=== PATIENT | male | born 1965 | race Caucasian/White ===

== ENCOUNTER 2016-11-24 08:02 | Outpatient (RCR) | payer MEDICARE ==
[~2016-11-24 08:02] MED LIST: AGM875T PO; ASP81TEC PO; ATOR80TA76 PO; BISTOLIC; CIPR500T78 PO; CIPR750T4 PO; CIPROFLOXACIN PO; DIAZ10TA PO; ESCT10T PO; EZET10TA5 PO; GABA-486 PO; GABA-488 PO; HYDR-3720 PO; HYDR-3820 PO; HYDR118S10 PO; IBP800T PO; IBUP-1773 PO; IBUP-30 PO; INSU100I14 SQ; INSU100V16 SQ; INSU100V3 SC; INSU100V6 SQ; INSULIN LANTUS; LANTUS SQ; LNZ600T PO; NAPR-243 PO; NCT21TD TD; NEBI20TA2 PO; PGLT30T PO; POTA20TA15 PO; SAXA1TBM2 PO; SSD50T TOP; SULF-109 PO; SULF-222 PO; TORS20TA2 PO; TRAM50TA2 PO; TRM50T PO; TRS20T PO
--- OUTSIDE RECORDS SUMMARY | 2016-11-24 08:05 | XMS REPORT ---
Author SYBIL Keller [facility] eClinicalWorks Address Unknown Phone Unavailable Care Team Providers Care Wheel Aligner Name Role Phone SYBIL NEW CP Unavailable Allergies, Adverse Reactions, Alerts Substance Reaction Event Type Lyrica Info Not Available Drug Allergy Problems Problem Type Condition Code Onset Dates Condition Status Assessment Neuropathy G62.9 Active Assessment HTN (hypertension) I10 Active Assessment GERD (gastroesophageal reflux disease) K21.9 Active Assessment Hypercholesterolemia E78.0 Active Assessment Emphysema lung J43.9 Active Problem HTN (hypertension) I10 Active Problem GERD (gastroesophageal reflux disease) K21.9 Active Problem 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 Problem 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 Active Assessment 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 Problem Neuropathy G62.9 Active Problem Emphysema lung J43.9 Active Medications Medication Code System Code Instructions Start Date End Date Status Dosage Protonix [facility] [address]-70 40 MG Orally Once a day February 21, 2016 1 tablet Humalog KwikPen [facility] [address]-01 100 UNIT/ML Subcutaneous 3 times a day February 17, 2016 30 units Advair Diskus [facility] [address]-24 250-50 MCG/DOSE Inhalation Twice a day February 17, 2016 1 puff Lantus SoloStar [facility] [address]-80 100 UNIT/ML Subcutaneous Once a day February 17, 2016 90 units Lipitor [facility] [address]-72 80 MG Orally Once a day 1 tablet Losartan Potassium [facility] [address]-81 50 mg Orally Once a day February 17, 2016 1 tablet Hydrocodone-Acetaminophen [facility] [address]-85 10-325 MG Orally 3 times a day 1 tablet as needed Kombiglyze XR [facility] [address]-40 2.5-1000 MG Orally Once a day 1 tablet with evening meal Crestor [facility] [address]-42 10 mg Orally Once a day February 18, 2016 1 tablet Proventil HFA [facility] [address]-38 108 (90 Base) MCG/ACT Inhalation every 4 hrs February 17, 2016 2 puffs as needed Ibuprofen [facility] [address]-55 600 MG Orally 2 times a day 1 tablet Advocate Insulin Pen [place] [facility] [address]243 31G X 8 MM 4 times a day February 17, 2016 as directed Gabapentin [facility] [address]-73 300 MG Orally Three times a day 1 capsule Procedures Procedure Coding System Code Date Office Visit, Est Pt., Level 4 CPT-4 19069 May 25, 2016 GLYCATED HEMOGLOBIN TEST CPT-4 11325 May 25, 2016 Vital Signs Date/Time: May 25, 2016 Cardiac Monitoring Heart Rate 72 bpm Weight 379.0 lbs Height 72.0 in Blood Pressure Diastolic 96 mmHg Blood Pressure Systolic 170 mmHg Results No Known Results Summary Purpose eClinicalWorks Submission
== END 2016-11-24 16:00 | disposition home or self-care (01) ==
LOC: WOUNDCARE 08:02
PROVIDERS: ATTEND Surgery
DX: E11.622 Type 2 diabetes mellitus with other skin ulcer (principal); E11.621 Type 2 diabetes mellitus with foot ulcer; L97.212 Non-pressure chronic ulcer of right calf with fat layer exposed; L97.522 Non-pressure chronic ulcer of other part of left foot with fat layer exposed; T87.89 Other complications of amputation stump; Z89.511 Acquired absence of right leg below knee; E66.01 Morbid (severe) obesity due to excess calories
CPT/HCPCS: 11042

== ENCOUNTER 2017-06-14 08:06 | Outpatient (RCR) | payer MEDICARE, OTHER | END 2017-06-18 16:00 | disposition home or self-care (01) | LOC: WOUNDCARE 08:06 | PROVIDERS: ATTEND Internal Medicine | DX: E11.622 Type 2 diabetes mellitus with other skin ulcer (principal); L97.112 Non-pressure chronic ulcer of right thigh with fat layer exposed; T87.89 Other complications of amputation stump; Z89.511 Acquired absence of right leg below knee; T65.222S Toxic effect of tobacco cigarettes, intentional self-harm, sequela; E66.01 Morbid (severe) obesity due to excess calories | CPT/HCPCS: 11042; 15271; 87070; 87075; 87077; 87101; 87186; 87205 ==

== ENCOUNTER → 2017-06-21 | Outpatient (CLI) | payer MEDICARE | LOC: WOUNDCARE 08:00 | PROVIDERS: ATTEND Internal Medicine | DX: E11.622 Type 2 diabetes mellitus with other skin ulcer (principal); L97.112 Non-pressure chronic ulcer of right thigh with fat layer exposed; T87.89 Other complications of amputation stump; T65.222S Toxic effect of tobacco cigarettes, intentional self-harm, sequela; E66.01 Morbid (severe) obesity due to excess calories; Z68.42 Body mass index [BMI] 45.0-49.9, adult; Z89.511 Acquired absence of right leg below knee | CPT/HCPCS: 11042; 87070; 87075; 87077; 87101; 87186; 87205 ==

== ENCOUNTER → 2017-06-28 | Outpatient (CLI) | payer MEDICARE, OTHER ==
[~2017-06-28] MED LIST changes: -NCT21TD TD; +NICO-588 TD
== END ==
LOC: WOUNDCARE 08:02
PROVIDERS: ATTEND Internal Medicine
DX: E11.621 Type 2 diabetes mellitus with foot ulcer (principal); L97.112 Non-pressure chronic ulcer of right thigh with fat layer exposed; T87.89 Other complications of amputation stump; Z89.511 Acquired absence of right leg below knee; T65.222S Toxic effect of tobacco cigarettes, intentional self-harm, sequela; E66.01 Morbid (severe) obesity due to excess calories
CPT/HCPCS: 11042

== ENCOUNTER → 2017-07-03 | Outpatient (CLI) | payer MEDICARE ==
[~2017-07-03] MED LIST changes: +NCT21TD TD; -NICO-588 TD
== END ==
LOC: WOUNDCARE 08:19
PROVIDERS: ATTEND Nurse Practitioner
DX: E11.622 Type 2 diabetes mellitus with other skin ulcer (principal); L97.112 Non-pressure chronic ulcer of right thigh with fat layer exposed; T87.89 Other complications of amputation stump; T65.222S Toxic effect of tobacco cigarettes, intentional self-harm, sequela; E66.01 Morbid (severe) obesity due to excess calories; Z68.42 Body mass index [BMI] 45.0-49.9, adult; Z89.511 Acquired absence of right leg below knee
CPT/HCPCS: 97597

== ENCOUNTER → 2017-07-12 | Outpatient (CLI) | payer MEDICARE | LOC: WOUNDCARE 08:15 | PROVIDERS: ATTEND Internal Medicine | DX: T87.89 Other complications of amputation stump (principal); Z89.511 Acquired absence of right leg below knee; T65.222S Toxic effect of tobacco cigarettes, intentional self-harm, sequela; E66.01 Morbid (severe) obesity due to excess calories | CPT/HCPCS: 99212 ==

== ENCOUNTER 2018-02-27 20:44 | Outpatient (CLI) | payer MEDICARE ==
[~2018-02-27 20:44] MED LIST changes: -NCT21TD TD; +NICO-588 TD
== END 2018-02-28 06:00 | disposition home or self-care (01) ==
LOC: SLEEP 20:44
PROVIDERS: ATTEND Nurse Practitioner Family
DX: G47.10 Hypersomnia, unspecified (principal); R06.83 Snoring; I10 Essential (primary) hypertension; I49.9 Cardiac arrhythmia, unspecified
CPT/HCPCS: 95810

== ENCOUNTER 2018-03-05 18:06 | Inpatient (IN) | payer MEDICARE ==
[~2018-03-05] VITALS: Ht 193 cm; Wt 165.1 kg
--- NOTE | 2018-03-05 18:56 | ED General ---
General Chief Complaint: General Problems/Pain Stated Complaint: POSS PNUEMONIA Nursing Triage Note: PT STATES HE JUST GENERALLY DOESN'T FEEL GOOD, SOB WITH LITTLE EFFORT. STATES HE THINKS HE MAY HAVE A BLADDER INFECTION. Nursing Sepsis Screen: Possible Sepsis Risk Source of Information: Patient History of Present Illness Date Seen by Provider: Mar 05, 2018 Time Seen by Provider: 18:40 Initial Comments PT ARRIVES VIA POV FROM HOME STATES HE "JUST HASN'T FELT GOOD" SINCE Sunday03/01/18 HAS HAD NO ENERGY, SUBJECTIVE FEVER, CHILLS AND SWEATS HAS HAD SLIGHT BURNING ON URINATION AND URINE HAS A BAD ODOR, AND URINE HAS BEEN DARK THE LAST FEW DAYS, HE HAS HAD URINARY INCONTINENCE, AND HAS TO PUSH TO FINISH VOIDING, AND THEN HE WILL HAVE "PENIS FARTS" WHEN HE IS FINISHING--AND FEELS LIKE NOTHING IS COMING OUT OF HIS PENIS EXCEPT AIR AND IT MAKES A VIBRATING NOISE LIKE HE IS PASSING GAS THROUGH HIS PENIS. HAS MILD BILATERAL FLANK PAIN AND NGOC-UMBILICAL AND LOWER ABDOMINAL PAIN NO NAUSEA/VOMITING SHORTNESS OF BREATH WITH MINIMAL EXERTION NO COUGH NO CHEST PAIN PT IS DIABETIC, WITH HISTORY OF PAD AND HAS HAD RIGHT BKA AND TOE AMPUTATIONS ON LEFT DUE TO OSTEOMYELITIS AND PAD. PT DENIES ANY PROBLEMS WITH HIS LEGS OR LEFT FOOT AT THIS TIME. PCP: CONI, CAROLEE LYNN Allergies and Home Medications Allergies Coded Allergies: pregabalin (Unverified Allergy, Severe, FEVER, 04/26/15) Home Medications Atorvastatin Calcium 80 Mg Tablet, 80 MG PO DAILY@0800 Prescribed by: RENÉ TAVAREZ on 11/25/15 1038 Gabapentin 300 Mg Capsule, 300 MG PO TID, (Reported) Ibuprofen 200 Mg Tablet, 600 MG PO BID PRN for PAIN, (Reported) TAKES 3 (200MG) OTC IBU NEEDED Insulin Aspart 300 Units/3 Ml Solution, 0 SQ AC SLIDING SCALE B Prescribed by: RENÉ TAVAREZ on 11/25/15 1049 Insulin Glargine,Hum.rec.anlog 100 Unit/1 Ml Vial, 75 UNIT SQ DAILY, (Reported) Nicotine 1 Each Patch.td24, 21 MG TD DAILY@0900 Prescribed by: RENÉ TAVAREZ on 11/25/15 1038 Saxagliptin HCl/Metformin HCl 1 Each Tbmp.24hr, 2 TAB PO DAILY, (Reported) Sulfamethoxazole/Trimethoprim 1 Each Tablet, 1 EACH PO BID Prescribed by: RENÉ TAVAREZ on 11/25/15 1038 Patient Home Medication List Home Medication List Reviewed: Yes Review of Systems Constitutional: see HPI, chills, malaise, weakness Respiratory: dyspnea on exertion Cardiovascular: no symptoms reported Gastrointestinal: abdominal pain Genitourinary: see HPI, dysuria Musculoskeletal: see HPI, back pain Skin: no symptoms reported Psychiatric/Neurological: Pre-Existing Deficit (PERIPHERAL NEUROPATHY, AND PHANTOM PAIN RIGHT LEG) Hematologic/Lymphatic: No Symptoms Reported Immunological/Allergic: no symptoms reported Past Vqtcosy-Jkyhsp-Xhiouc Hx Patient Social History Alcohol Use: Denies Use Recreational Drug Use: Yes (THC DAILY, HX OF METH, CRACK COCAINE, LSD, ECSTASY , MUSHROOMS) Drug of Choice: THC DAILY, HX OF METH, LSD, ECSTASY, CRACK COCAINE, MUSHROOMS- DENIES IV USE Smoking Status: Current Everyday Smoker (11/20 PPD) Type Used: Cigarettes Recent Foreign Travel: No Contact w/Someone Who Travel: No Recent Infectious Disease Expo: No Recent Hopitalizations: No Immunizations Up To Date Tetanus Booster (TDap): More than 5yrs PED Vaccines UTD: Yes Date of Pneumonia Vaccine: Sep 19, 2011 Date of Influenza Vaccine: Aug 28, 2015 Seasonal Allergies Seasonal Allergies: Yes Past Medical History Surgeries: Yes (LEFT BUTTOCK ABCESS, RT BKA, 2 TOES AMPUTATED ON LT FOOT) Amputation, Orthopedic Respiratory: Yes Sleep Apnea, COPD Currently Using CPAP: No Currently Using BIPAP: No Cardiac: Yes Chronic Edema/Swelling, Coronary Artery Disease, High Cholesterol, Hypertension , Peripheral Vascular Neurological: Yes (PHANTOM PAIN RIGHT LEG) Neuropathy Reproductive Disorders: No Genitourinary: No Gastrointestinal: Yes Gastroesophageal Reflux, Hiatal Hernia Musculoskeletal: Yes (OSTEOMYELITIS) Amputee, Arthritis, Chronic Back Pain Endocrine: Yes (MORBID OBESITY; DIABETES--INSULIN + ORAL MEDICATIONS) Diabetes, Insulin dep HEENT: Yes (EDENTULOUS) Loss of Vision: Denies Hearing Impairment: Denies Cancer: No Psychosocial: No Integumentary: Yes (MRSA, OSTEOMYELITIS, DIABETIC FOOT ULCERS) Blood Disorders: No Adverse Reaction/Blood Tranf: No Family Medical History Cardiovascular disease 19 FATHER ( heart attack) G8 BROTHER Diabetes mellitus 19 MOTHER ( complications diabetes) Psychosocial problem G8 BROTHER (in retirement) Heart Disease, Diabetes Physical Exam Vital Signs Vital Signs - First Documented 03/05/1818 18:30 20:37 Temp 97.9 Pulse 84 Resp 22 B/P (MAP) 151/85 (107) Pulse Ox 96 O2 Delivery Room Air O2 Flow Rate 2.00 Capillary Refill : Less Than 3 Seconds General Appearance: No Apparent Distress, Obese, Other (SMILING, TALKATIVE, DOES NOT APPEAR TO BE IN ANY DISCOMFORT OR DISTRESS; AMBULATES IN ON OWN-- WEARING PROSTHETIC RIGHT LOWER LEG. LAYING OUTSTRETCHED IN ER CART, DOES NOT APPEAR TO BE IN ANY DISCOMFORT. COVERED IN ANIMAL HAIR ) HEENT: PERRL/EOMI, Other (EDENTULOULS) Neck: Normal Inspection Respiratory: Normal Breath Sounds, No Accessory Muscle Use, No Respiratory Distress Cardiovascular: Regular Rate, Rhythm, No Murmur Gastrointestinal: Soft Extremity: Other (RIGHT AKA, WITH SCABBED WOUND TO LATERAL ASPECT OF STUMP, NO EVIDENCE OF INFECTION. 1+ EDEMA ON LEFT WITH MILD ERYTHEMA/CHRONIC VENOUS STASIS CHANGES TO LEFT LOWER LEG. 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 SCABBED WOUND (OLD) TO LEFT KNEE-NO SIGNS OF INFECTION. SEVERAL SCABBED LINEAR ABRASIONS TO LEFT LOWER LEG--PT STATES IS FROM HITTING IT ON HIS WHEELCHAIR ) Focused Exam Lactate Level 03/05/18 18:43: Lactic Acid Level 1.59 Lactic Acid Level Laboratory Tests Test 03/05/18 18:43 Lactic Acid Level 1.59 MMOL/L (0.50-2.00) Progress/Results/Core Measures Suspected Sepsis Recent Fever Within 48 Hours: Yes Infection Criteria Present: Suspected New Infection New/Unexplained Altered Menta: No Sepsis Screen: Possible Sepsis Risk SIRS Temperature:97.9 Pulse: 84 Respiratory Rate: 22 Laboratory Tests 03/05/18 18:43: White Blood Count 10.9 Blood Pressure 151 /85 Mean: 107 03/05/18 18:43: Lactic Acid Level 1.59 Laboratory Tests 03/05/18 18:43: Creatinine 0.84, INR Comment 1.0, Platelet Count 191, Total Bilirubin 0.4 Results/Orders Lab Results Laboratory Tests Test 03/05/18 18:43 03/05/18 19:25 Range/Units White Blood Count 10.9 4.3-11.0 10^3/uL Red Blood Count 5.56 4.35-5.85 10^6/uL Hemoglobin 16.0 13.3-17.7 G/DL Hematocrit 48 40-54 % Mean Corpuscular Volume 87 80-99 FL Mean Corpuscular Hemoglobin 29 25-34 PG Mean Corpuscular Hemoglobin Concent 33 32-36 G/DL Red Cell Distribution Width 13.4 10.0-14.5 % Platelet Count 191 130-400 10^3/uL Mean Platelet Volume 9.9 7.4-10.4 FL Neutrophils (%) (Auto) 61 42-75 % Lymphocytes (%) (Auto) 27 12-44 % Monocytes (%) (Auto) 9 0-12 % Eosinophils (%) (Auto) 2 0-10 % Basophils (%) (Auto) 1 0-10 % Neutrophils # (Auto) 6.7 1.8-7.8 X 10^3 Lymphocytes # (Auto) 2.9 1.0-4.0 X 10^3 Monocytes # (Auto) 1.0 0.0-1.0 X 10^3 Eosinophils # (Auto) 0.3 0.0-0.3 10^3/uL Basophils # (Auto) 0.1 0.0-0.1 10^3/uL Prothrombin Time 13.6 12.2-14.7 SEC INR Comment 1.0 0.8-1.4 Activated Partial Thromboplast Time 35 24-35 SEC Sodium Level 137 135-145 MMOL/L Potassium Level 3.6 3.6-5.0 MMOL/L Chloride Level 102 98-107 MMOL/L Carbon Dioxide Level 27 21-32 MMOL/L Anion Gap 8 5-14 MMOL/L Blood Urea Nitrogen 16 7-18 MG/DL Creatinine 0.84 0.60-1.30 MG/DL Estimat Glomerular Filtration Rate > 60 BUN/Creatinine Ratio 19 Glucose Level 115 H 70-105 MG/DL Lactic Acid Level 1.59 0.50-2.00 MMOL/L Calcium Level 9.5 8.5-10.1 MG/DL Total Bilirubin 0.4 0.1-1.0 MG/DL Aspartate Amino Transf (AST/SGOT) 16 5-34 U/L Alanine Aminotransferase (ALT/SGPT) 17 0-55 U/L Alkaline Phosphatase 113 40-136 U/L Troponin I < 0.30 <0.30 NG/ML B-Type Natriuretic Peptide 19.4 <100.0 PG/ML Total Protein 7.8 6.4-8.2 GM/DL Albumin 3.8 3.2-4.5 GM/DL Amylase Level 29 25-125 U/L Lipase < 4 L 8-78 U/L Serum Alcohol < 10 <10 MG/DL Urine Color KARLEY H Urine Clarity VERY CLOUDY H Urine pH 6 5-9 Urine Specific [place] 1.025 H 1.016-1.022 Urine Protein 3+ H NEGATIVE Urine Glucose (UA) NEGATIVE NEGATIVE Urine Ketones 1+ H NEGATIVE Urine Nitrite POSITIVE H NEGATIVE Urine Bilirubin NEGATIVE NEGATIVE Urine Urobilinogen 1 NORMAL MG/DL Urine Leukocyte Esterase 1+ H NEGATIVE Urine RBC (Auto) 1+ H NEGATIVE Urine RBC 0-2 /HPF Urine WBC 10-25 H /HPF Urine Crystals NONE /LPF Urine Bacteria LARGE H /HPF Urine Casts NONE /LPF Urine Mucus NEGATIVE /LPF Urine Culture Indicated YES Urine Opiates Screen POSITIVE H NEGATIVE Urine Oxycodone Screen POSITIVE H NEGATIVE Urine Methadone Screen NEGATIVE NEGATIVE Urine Propoxyphene Screen NEGATIVE NEGATIVE Urine Barbiturates Screen NEGATIVE NEGATIVE Ur Tricyclic Antidepressants Screen NEGATIVE NEGATIVE Urine Phencyclidine Screen NEGATIVE NEGATIVE Urine Amphetamines Screen NEGATIVE NEGATIVE Urine Methamphetamines Screen NEGATIVE NEGATIVE Urine Benzodiazepines Screen NEGATIVE NEGATIVE Urine Cocaine Screen NEGATIVE NEGATIVE Urine Cannabinoids Screen POSITIVE H NEGATIVE My Orders Orders - DAYO AGUIRRE DO Saline Lock/Iv-Start (03/05/18 18:32) Ekg Tracing (03/05/18 18:32) Monitor-Rhythm Ecg Trace Only (03/05/18 18:32) Alcohol (03/05/18 18:32) Amylase (03/05/18 18:32) BNP (03/05/18 18:32) Cbc With Automated Diff (03/05/18 18:32) Comprehensive Metabolic Panel (03/05/18 18:32) Drug Screen Stat (Urine) (03/05/18 18:32) Lactic Acid Analyzer (03/05/18 18:32) Lipase (03/05/18 18:32) Protime With Inr (03/05/18 18:32) Partial Thromboplastin Time (03/05/18 18:32) Troponin I (03/05/18 18:32) Ua Culture If Indicated (03/05/18 18:32) Blood Culture (03/05/18 18:32) Chest Pa/Lat (2 View) (03/05/18 18:32) Urine Culture (03/05/18 19:25) Ct Abdomen/Pelvis W (03/05/18 19:56) Iohexol Injection (Omnipaque 350 Mg/Ml 1 (03/05/18 20:15) Ns (Ivpb) (Sodium Chloride 0.9% Ivpb Bag (03/05/18 20:15) Ekg Tracing (03/05/18 20:38) O2 (03/05/18 20:38) Ekg Tracing (03/05/18 20:43) Ceftriaxone Injection (Rocephin Injectio (03/05/18 21:00) Medications Given in ED Current Medications Medications Dose Ordered Sig/Abigail Route Start Time Stop Time Status Last Admin Dose Admin Ceftriaxone Sodium 1000 mg/ Sodium Chloride 100 ml @ 200 mls/hr ONCE ONCE IV 03/05/18 21:00 03/05/18 21:29 DC 03/05/18 21:06 200 MLS/HR Iohexol 150 ml ONCE ONCE IV 03/05/18 20:15 03/05/18 20:19 DC 03/05/18 20:07 125 ML Sodium Chloride 100 ml ONCE ONCE IV 03/05/18 20:15 03/05/18 20:19 DC 03/05/18 20:07 100 ML Vital Signs/I&O 03/05/18 03/05/18 03/05/18 18:30 20:37 21:19 Temp 97.9 98.1 98.1 Pulse 84 67 75 Resp 22 13 15 B/P (MAP) 151/85 (107) 119/81 (94) 141/81 (94) Pulse Ox 96 96 96 O2 Delivery Room Air Nasal Cannula Nasal Cannula O2 Flow Rate 2.00 2.00 Capillary Refill : Less Than 3 Seconds Blood Pressure Mean: 107 Progress Note : Progress Note ON REVIEW OF CT RESULTS WITH PT, HE DENIES ANY INSTRUMENTATION INTO PENIS OR BLADDER 2034--PT PROFUSELY DIAPHORETIC, AND C/O SHORTNESS OF BREATH,BUT DOES NOT APPEAR DYSPNEIC. --REPEAT EKG DONE, REPEAT VITALS TAKEN 02 SAT 91-93% ON ROOM AIR--PLACED ON O2 AT 4LNC AND O2 SATS UP TO 96% HEART RATE IN 70'S TEMP 98.1 EKG SHOWS NSR WITH PAC'S ECG Initial ECG Impression Date: Mar 05, 2018 Initial ECG Impression Time: 18:39 Initial ECG Rate: 82 Initial ECG Rhythm: Normal Sinus (PAC) EKG : EKG Time: 20:33 Rate: 64 Rhythm: Normal Sinus (WITH MULTIPLE PAC'S) Comment EGK#3 AT 2034--RATE 66, NSR WITH MULTIPLE PAC'S Diagnostic Imaging Comments CXR--NO ACUTE PROCESS, PER RADIOLOGIST REPORT CT ABDOMEN/PELVIS--AIR IN URINARY BLADDER. INSTRUMENTATION VS GAS-PRODUCING CYSTITIS, OTHER CHRONIC FINDINGS--PER RADIOLOGIST REPORT @ 2038 Reviewed: Reviewed by Tn Departure Communication (Admissions) 2045--ATTEMPTING TO CONTACT DR. SIEGEL, SHIPPING CLERK FOR [facility], MESSAGE LEFT ON CELL PHONE [phone]--SPOKE WITH DR. SIEGEL, ACCEPTS PT FOR ADMIT. Impression Primary Impression: UTI (urinary tract infection) Additional Impressions: IDDM (insulin dependent diabetes mellitus) Illicit drug use AIR IN BLADDER Disposition: ADMITTED INPATIENT Condition: Stable Admissions Decision to Admit Reason: Admit from ER (General) Decision to Admit/Date: Mar 05, 2018 Time/Decision to Admit Time: 21:05 Departure-Patient Inst. Referrals: KAREN LYNN APRN (PCP/Family) Primary Care Physician DAYO AGUIRRE DO Mar 05, 2018 18:56
[2018-03-05 19:04] LABS: BASOPHILS # (AUTO) 0.1 10^3/uL (0.0-0.1); BASOPHILS % (AUTO) 1 % (0-10); EOSINOPHILS # (AUTO) 0.3 10^3/uL (0.0-0.3); EOSINOPHILS % (AUTO) 2 % (0-10); HEMATOCRIT 48 % (40-54); LYMPHOCYTES # (AUTO) 2.9 X 10^3 (1.0-4.0); LYMPHOCYTES % (AUTO) 27 % (12-44); MEAN CORPUSCULAR HEMOGLOBIN 29 PG (25-34); MEAN CORPUSCULAR HGB CONC 33 G/DL (32-36); MEAN CORPUSCULAR VOLUME 87 FL (80-99); MEAN PLATELET VOLUME 9.9 FL (7.4-10.4); MONOCYTES % (AUTO) 9 % (0-12); NEUTROPHILS # (AUTO) 6.7 X 10^3 (1.8-7.8); NEUTROPHILS % (AUTO) 61 % (42-75); PLATELET COUNT 191 10^3/uL (130-400); RED BLOOD COUNT 5.56 10^6/uL (4.35-5.85); RED CELL DISTRIBUTION WIDTH 13.4 % (10.0-14.5); WHITE BLOOD COUNT 10.9 10^3/uL (4.3-11.0)
[2018-03-05 19:17] LABS: PROTHROMBIN TIME PATIENT 13.6 SEC (12.2-14.7)
[2018-03-05 19:30] LABS: ALANINE AMINOTRANSFERASE 17 U/L (0-55); ALBUMIN 3.8 GM/DL (3.2-4.5); ALKALINE PHOSPHATASE 113 U/L (40-136); AMYLASE 29 U/L (25-125); BILIRUBIN,TOTAL 0.4 MG/DL (0.1-1.0); BUN/CREATININE RATIO 19; CALCIUM 9.5 MG/DL (8.5-10.1); CARBON DIOXIDE 27 MMOL/L (21-32); CHLORIDE 102 MMOL/L (98-107); CREATININE SERUM 0.84 MG/DL (0.60-1.30); GFR ESTIMATED > 60; GLUCOSE 115 MG/DL (70-105); LIPASE < 4 U/L (8-78); POTASSIUM 3.6 MMOL/L (3.6-5.0); SODIUM 137 MMOL/L (135-145); TOTAL PROTEIN 7.8 GM/DL (6.4-8.2)
--- NOTE | 2018-03-05 19:31 | Diagnostic Imaging Report ---
INDICATION: Cough and congestion. Time of exam: 7:42 PM Correlation is made with prior study from 11/17/2015. The heart size is normal. The pulmonary vascularity is unremarkable. The lungs are clear. No infiltrate, effusion or pneumothorax is detected. Impression: No acute cardiopulmonary process is detected. Dictated by: Dictated on workstation # [id number]
[2018-03-05 19:35] LABS: BILIRUBIN,URINE NEGATIVE (NEGATIVE); CLARITY,URINE VERY CLOUDY; COLOR,URINE AMBER; GLUCOSE, URINE (UA) NEGATIVE (NEGATIVE); KETONES,URINE 1+ (NEGATIVE); LEUKOCYTE ESTERASE ,URINE 1+ (NEGATIVE); NITRITE,URINE POSITIVE (NEGATIVE); PH,URINE 6 (5-9); PROTEIN,URINE 3+ (NEGATIVE); UROBILINOGEN,URINE 1 MG/DL (NORMAL)
[2018-03-05 19:45] LABS: BACTERIA,URINE LARGE /HPF; RBC,URINE 0-2 /HPF
[2018-03-05 19:58] LABS: AMPHETAMINE SCREEN, URINE NEGATIVE (NEGATIVE); BARBITURATE SCREEN URINE NEGATIVE (NEGATIVE); BENZODIAZEPINES SCREEN URINE NEGATIVE (NEGATIVE); CANNABINOID SCREEN, URINE POSITIVE (NEGATIVE); COCAINE SCREEN URINE NEGATIVE (NEGATIVE); METHADONE STAT NEGATIVE (NEGATIVE); METHAMPHETAMINE SCREEN URINE S NEGATIVE (NEGATIVE); OPIATE SCREEN URINE POSITIVE (NEGATIVE); OXYCODONE STAT POSITIVE (NEGATIVE); TRICYCLIC ANTIDEPRESSANTS SCRE NEGATIVE (NEGATIVE)
[2018-03-05 19:59] LABS: PROPOXYPHENE STAT NEGATIVE (NEGATIVE)
[2018-03-05] MEDS ORDERED: NS 100 ML (IVPB) BAG IV ONE (20:15)
[2018-03-05] MEDS ORDERED: IOHEXOL 350 MG/ML 150 ML (OMNIPAQUE 350) VIAL IV ONE (20:15)
--- NOTE | 2018-03-05 20:31 | Diagnostic Imaging Report ---
PROCEDURE: CT abdomen and pelvis with contrast. TECHNIQUE: Multiple contiguous axial images were obtained through the abdomen and pelvis after administration of intravenous contrast. INDICATION: Left lower quadrant pain There are numerous calcified granuloma scattered throughout the liver and spleen. There is some calcified hilar lymph nodes present bilaterally. The lung bases are clear. There are no masses in the liver. The gallbladder is present. Pancreas is unremarkable. Spleen is not enlarged. Adrenals are normal. Kidneys appear normal. Small bowel is not dilated. The appendix is normal. Colon appears normal. There is no evidence of diverticulosis or diverticulitis. There is air in the urinary bladder which could be due to instrumentation but clinical correlation required. IMPRESSION: There is air present within the urinary bladder that could be from instrumentation versus gas producing cystitis. Dictated by: Dictated on workstation # [id number]
[2018-03-05 20:37] VITALS: BP 119/81
[2018-03-05] MEDS ORDERED: cefTRIAXone INJECTION 1,000 MG in NS (IVPB) 100 ML IV ONE (21:00)
--- OUTSIDE RECORDS SUMMARY | 2018-03-05 21:20 | XMS REPORT ---
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
--- OUTSIDE RECORDS SUMMARY | 2018-03-05 21:21 | XMS REPORT ---
Author SYBIL Keller [facility] eClinicalWorks Address Unknown Phone Unavailable Care Team Providers Care Oil Heater Installer Name Role Phone SYBIL NEW CP Unavailable [...] Start Date End Date Status Dosage Protonix [facility] [address]-63 40 MG Orally Once a day February 21, 2016 1 tablet Humalog KwikPen [facility] [address]-12 100 UNIT/ML Subcutaneous 3 times a day February 17, 2016 30 units Advair Diskus [facility] [address]-11 250-50 MCG/DOSE Inhalation Twice a day February 17, 2016 1 puff Lantus SoloStar [facility] [address]-28 100 UNIT/ML Subcutaneous Once a day February 17, 2016 90 units Lipitor [facility] [address]-43 80 MG Orally Once a day 1 tablet Losartan Potassium [facility] [address]-53 50 mg Orally Once a day February 17, 2016 1 tablet Hydrocodone-Acetaminophen [facility] [address]-86 10-325 MG Orally 3 times a day 1 tablet as needed Kombiglyze XR [facility] [address]-90 2.5-1000 MG Orally Once a day 1 tablet with evening meal Crestor [facility] [address]-27 10 mg Orally Once a day February 18, 2016 1 tablet Proventil HFA [facility] [address]-15 108 (90 Base) MCG/ACT Inhalation every 4 hrs February 17, 2016 2 puffs as needed Ibuprofen [facility] [address]-86 600 MG Orally 2 times a day 1 tablet Advocate Insulin Pen [place] [facility] [address] 31G X 8 MM 4 times a day February 17, 2016 as directed Gabapentin [facility] [address]-89 300 MG Orally Three times a day 1 capsule Procedures Procedure Coding System Code Date Office Visit, Est Pt., Level 4 CPT-4 68639 May 25, 2016 GLYCATED HEMOGLOBIN TEST CPT-4 73648 May 25, 2016 Vital Signs Date/Time: May 25, 2016 Cardiac Monitoring Heart Rate 72 bpm Weight 379.0 lbs Height 72.0 in Blood Pressure Diastolic 96 mmHg Blood Pressure Systolic 170 mmHg Results No Known Results Summary Purpose eClinicalWorks Submission
--- OUTSIDE RECORDS SUMMARY | 2018-03-05 21:21 | XMS REPORT ---
Author Author SYBIL Rubi Organization [facility] Address [address] [place] [address] Care Team Providers Care Acoustical Engineer Name Role Phone [email or web address] SYBIL Unavailable PROBLEMS Type Condition ICD9-CM Code [id number] Code Onset Dates Condition Status SNOMED Code Problem 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 605605906 Problem Primary insomnia F51.01 Active 0839913 Problem GERD (gastroesophageal reflux disease) K21.9 Active 936811609 Problem High risk medication use Z79.899 Active [id number] Problem Long-term insulin use Z79.4 Active 021318573 Problem Morbid (severe) obesity due to excess calories E66.01 Active 745039611 Problem Body mass index (BMI) of 50-59.9 in adult Z68.43 Active 380935049 Problem Controlled substance agreement signed Z79.899 Active 645859041 Problem Irregular heart rhythm I49.9 Active 969446596 Problem Emphysema lung J43.9 Active 66209930 Problem Neuropathy G62.9 Active 007802984 Problem HTN (hypertension) I10 Active 98292277 Problem Pure hypercholesterolemia, unspecified E78.00 Active 627799963 Problem 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 Active 518847133 ALLERGIES No Information ENCOUNTERS Encounter Location Date Diagnosis [facility] [id number] [address] Jan, [facility] [id number] [place] [address] Jan, 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 [facility] [id number] [address] Dec, Type 2 diabetes mellitus with other circulatory complications E11.59 ; HTN (hypertension) I10 and Pure hypercholesterolemia, unspecified E78.00 [address] [id number] [place] [address]7582- [address] 27 Dec, 2017 Type 2 diabetes mellitus with other circulatory complications E11.59 ; Long-term insulin use Z79.4 ; HTN (hypertension) I10 ; Pure hypercholesterolemia, unspecified E78.00 ; 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 ; Controlled substance agreement signed Z79.899 ; High risk medication use Z79.899 ; Irregular heart rhythm I49.9 ; Body mass index ( BMI) of 50-59.9 in adult Z68.43 ; Morbid (severe) obesity due to excess calories E66.01 ; Neuropathy G62.9 and GERD (gastroesophageal reflux disease) K21.9 [place] [id number] [place] [address] 81326- 8789 13 Dec, 2017 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 [place] [id number] [place] [address] 40158- 2983 Dec, [place] [id number] [place] [address] 78199- 0487 Nov, 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 [facility] [id number] [place] [id number] Oct, GERD (gastroesophageal reflux disease) K21.9 [place] [address] [place] [address] 66171- 0533 Oct, HTN (hypertension) I10 ; GERD (gastroesophageal reflux disease) K21.9 and 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 [place] [id number] [place] [address] 77188- 5386 Oct, [place] [address] [address]- 7487 Oct, [place] [id number] [place] [address] 61764- 4676 Sep, Type 2 diabetes mellitus with other circulatory complications E11.59 and 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 [facility] [address] [address] Sep, Type 2 diabetes mellitus with other circulatory complications E11.59 [place] [id number] [place] [address] 11846- 0910 Aug, [facility] [id number] [place] [address] 25879- 5050 Aug, Type 2 diabetes mellitus with other circulatory complications E11.59 ; HTN (hypertension) I10 ; GERD (gastroesophageal reflux disease) K21.9 ; Neuropathy G62.9 ; 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 ; Encounter for tobacco use cessation counseling Z71.6 and BMI 40.0-44.9, adult Z68.41 [place] [id number] [place] [address] 62818- 5519 Aug, [place] [id number] [place] [address] 69440- 3274 Aug, 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 [place] [id number] [place] [address] 01652- 2159 Aug, Type 2 diabetes mellitus with other circulatory complications E11.59 [place] [id number] [place] [address] 64894- 3878 Aug, [place] [id number] [place] [address] 83146- 3455 Aug, [place] [id number] [place] [address] 17459- 2177 Jul, Encounter for immunization Z23 ; Type 2 diabetes mellitus with other circulatory complications E11.59 ; GERD (gastroesophageal reflux disease) K21.9 and Neuropathy G62.9 [facility] [address] [place] [address] 67081- 1737 Jul, 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 [place] [id number] [place] [address] 46966- 8636 Jul, [facility] [address] [address] Jun, 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 [facility] [id number] [place] [address] 660666- 2853 Jun, 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 [facility] [id number] [place] [address] 78913- 0851 May, 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 [facility] [id number] [place] [address] 07027- 0461 Apr, [place] [id number] [place] [address] 03027- 6727 Apr, Unspecified open wound, right knee, initial encounter S81.001A [facility] [id number] [place] [address] 74109- 5386 Apr, Unspecified open wound, right knee, initial encounter S81.001A [facility] [id number] [place] [address] 90076- 6741 Apr, Type 2 diabetes mellitus with other circulatory complications E11.59 ; HTN (hypertension) I10 ; GERD (gastroesophageal reflux disease) K21.9 ; Emphysema lung J43.9 ; Primary insomnia F51.01 ; Unspecified open wound, right knee, initial encounter S81.001A ; Pure hypercholesterolemia, unspecified E78.00 ; Neuropathy G62.9 and 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 [facility] [id number] [place] [address] 38222- 0245 Apr, Neuropathy G62.9 [facility] [id number] [place] [address] 92419- 7650 March, Neuropathy G62.9 [facility] [id number] [place] [address] 64775- 4635 March, [facility] [id number] [place] [address] 69056- 3295 Feb, Neuropathy G62.9 [place] [address] 58061- 8109 14 Jan, 2017 Type 2 diabetes mellitus with other circulatory complications E11.59 ; HTN (hypertension) I10 ; GERD (gastroesophageal reflux disease) K21.9 ; Neuropathy G62.9 ; Emphysema lung J43.9 ; Hypercholesterolemia E78.0 ; Primary insomnia F51.01 and Unspecified open wound, right knee, initial encounter S81.001A [place] [address] 7[address]- 1512 14 Dec, 2016 Type 2 diabetes mellitus with other circulatory complications E11.59 ; Neuropathy G62.9 ; 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 ; HTN (hypertension) I10 ; GERD (gastroesophageal reflux disease) K21.9 ; Hypercholesterolemia E78.0 ; Emphysema lung J43.9 and Dysuria R30.0 [place] [id number] [place] [address] 05576- 6989 Nov, [place] [id number] [place] [address] 52295- 9160 Nov, 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 [place] [id number] [place] [address] 31036- 6182 Nov, [place] [id number] [place] [address] 50527- 4984 Nov, [place] [id number] [place] [address] 47673- 9884 Nov, Type 2 diabetes mellitus with other circulatory complications E11.59 ; HTN (hypertension) I10 ; Neuropathy G62.9 ; Emphysema lung J43.9 ; 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 ; Hypercholesterolemia E78.0 ; GERD (gastroesophageal reflux disease) K21.9 ; Unspecified open wound, right knee, initial encounter S81.001A and Primary insomnia F51.01 [place] [address] 90502- 8215 Oct, [facility] [address] [address]- 6157 Oct, [facility] [id number] [place] [address] 466701- 1211 Oct, [facility] [id number] [place] [address] 07560- 8536 Sep, [place] [id number] [place] [address] 49773- 9485 Aug, [facility] [id number] [place] [address] 86231- 3901 Jul, Type 2 diabetes mellitus with other circulatory complications E11.59 ; HTN (hypertension) I10 ; Neuropathy G62.9 ; Emphysema lung J43.9 ; 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 ; Hypercholesterolemia E78.0 and Gastroesophageal reflux disease without esophagitis K21.9 [place] [address] [place] [address] 69956- 6603 Jun, [place] [id number] [place] [address] 98029- 0806 Jun, [place] [id number] [place] [address] 15616- 1896 May, [place] [id number] [place] [address] 47405- 0996 May, Type 2 diabetes mellitus with other circulatory complications E11.59 ; HTN (hypertension) I10 ; GERD (gastroesophageal reflux disease) K21.9 ; Neuropathy G62.9 ; Emphysema lung J43.9 and Hypercholesterolemia E78.0 [place] [id number] [place] [address] 99203- 1204 Apr, Neuropathy G62.9 and Type 2 diabetes mellitus with other circulatory complications E11.59 [place] [id number] [place] [address] 98632- 6989 Apr, Neuropathy G62.9 [place] [id number] [place] [address] 38119- 1793 March, Type 2 diabetes mellitus with other circulatory complications E11.59 ; HTN (hypertension) I10 ; Neuropathy G62.9 ; Emphysema lung J43.9 ; 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 ; Hypercholesterolemia E78.0 and Gastroesophageal reflux disease with esophagitis K21.0 [facility] [address] 9[address]05- 3239 Feb, [facility] [address] 81282- 1223 Feb, [facility] [address] 05518- 6681 Jan, [place] [address] 72080- 7099 Jan, Type 2 diabetes mellitus with other circulatory complications E11.59 ; HTN (hypertension) I10 ; GERD (gastroesophageal reflux disease) K21.9 ; Neuropathy G62.9 ; Emphysema lung J43.9 ; 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 and Hypercholesterolemia E78.0 [facility] [address] 60049- 7544 Jan, [facility] [id number] [place] [address] [id number] Dec, Dental examination Z01.20 and Dental caries K02.9 IMMUNIZATIONS No Known Immunizations SOCIAL HISTORY Never Assessed REASON FOR VISIT Lab (walk-in) PLAN OF CARE VITAL SIGNS MEDICATIONS Unknown Medications RESULTS Name Result Date Reference Range CBC 2017-04-27 WBC 9.5 3.4-10.8 RBC 5.73 4.14-5.80 Hemoglobin 16.1 12.6-17.7 Hematocrit 49.3 37.5-51.0 MCV 86 79-97 MCH 28.1 26.6-33.0 MCHC 32.7 31.5-35.7 RDW 13.6 12.3-15.4 Platelets 183 150-379 Neutrophils 69 Lymphs 19 Monocytes 10 Eos 2 Basos 0 Neutrophils (Absolute) 6.6 1.4-7.0 Lymphs (Absolute) 1.8 0.7-3.1 Monocytes(Absolute) 0.9 0.1-0.9 Eos (Absolute) 0.1 0.0-0.4 Baso (Absolute) 0.0 0.0-0.2 Immature Granulocytes 0 Immature Grans (Abs) 0.0 0.0-0.1 ESR/SED RATE 2017-04-27 Sedimentation Rate-Westergren 44 0-30 BMP 2017-04-27 Glucose, Serum 294 65-99 BUN 14 6-24 Creatinine, Serum 0.93 0.76-1.27 eGFR If NonAfricn Am 94 >59 eGFR If Africn Am 109 >59 BUN/Creatinine Ratio 15 9-20 Sodium, Serum 135 134-144 Potassium, Serum 4.7 3.5-5.2 Chloride, Serum 91 96-106 Carbon Dioxide, Total 27 18-29 Calcium, Serum 9.3 8.7-10.2 PROCEDURES Procedure Date Ordered Result Body Site LAB NOT BILLED BY [facility] April 27, 2017 VENIPUNCT, ROUTINE* April 27, 2017 INSTRUCTIONS MEDICATIONS ADMINISTERED No Known Medications MEDICAL (GENERAL) HISTORY Type Description Date Medical History High Blood pressure Medical History COPD Medical History Bronchitis Medical History Emphysema Medical History Diabetes Type 2 Medical History Arthritis Medical History Back Trouble Medical History Bone spurs in muscles in arms Medical History Neuropathy Surgical History osteomyelitis in left foot and right foot 2015 Surgical History 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 Thomas Surgical History Left leg massive hematoma when 11 years old Surgical History Great toe and 2nd toe amputated on left foot due to gangrene Hospitalization History Due to surgery 2015
--- OUTSIDE RECORDS SUMMARY | 2018-03-05 21:21 | XMS REPORT ---
Author Author SYBIL NEW Organization [facility] Address [address] [place] [address] Care Team Providers Care Lens Blank Gauger Name Role Phone SYBIL NEW Unavailable PROBLEMS Type Condition ICD9-CM Code [id number] Code Onset Dates Condition Status SNOMED Code Problem Pure hypercholesterolemia, unspecified E78.00 Active 875496485 Problem Emphysema lung J43.9 Active 61849191 Problem 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 Active 170273993 Problem Primary insomnia F51.01 Active 7032692 Problem Unspecified open wound, right knee, initial encounter S81.001A Active 194730727 Problem GERD (gastroesophageal reflux disease) K21.9 Active 491237220 Problem Neuropathy G62.9 Active 406213032 Problem 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 869291768 Problem HTN (hypertension) I10 Active 46451278 ALLERGIES Unknown Allergies SOCIAL HISTORY No smoking Hx information available PLAN OF CARE VITAL SIGNS MEDICATIONS Unknown Medications RESULTS No Results PROCEDURES No Known procedures IMMUNIZATIONS No Known Immunizations
--- OUTSIDE RECORDS SUMMARY | 2018-03-05 21:21 | XMS REPORT ---
Author Author SYBIL NEW Organization [facility] Address [address] [place] [address] Care Team Providers Care Chiller Hand Name Role Phone NEW, SYBIL Unavailable PROBLEMS Type Condition ICD9-CM Code [id number] Code Onset Dates Condition Status SNOMED Code Problem Pure hypercholesterolemia, unspecified E78.00 Active 319327645 Problem 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 Active 987420702 Problem 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 037145790 Problem Primary insomnia F51.01 Active 1990654 Problem Unspecified open wound, right knee, initial encounter S81.001A Active 175623517 Problem Neuropathy G62.9 Active 385542837 Problem Emphysema lung J43.9 Active 09367894 Problem GERD (gastroesophageal reflux disease) K21.9 Active 296820769 Problem HTN (hypertension) I10 Active 15967497 ALLERGIES Substance Reaction Event Type Date Status Lyrica Unknown Drug Allergy Dec, Active SOCIAL HISTORY Never Assessed PLAN OF CARE Activity Details Follow Up 3 Months Reason:adhd VITAL SIGNS Height 72.0 in 2017-01-02 Weight 372 lbs 2017-01-02 Temperature 98.1 degrees Fahrenheit 2017-01-02 Heart Rate 80 bpm 2017-01-02 Respiratory Rate 22 2017-01-02 Oximetry on room air:92 % 2017-01-02 BMI 50.45 kg/m2 2017-01-02 Blood pressure systolic 160 mmHg 2017-01-02 Blood pressure diastolic 100 mmHg 2017-01-02 MEDICATIONS Medication Instructions Dosage Frequency Start Date End Date Duration Status ProAir HFA 108 (90 Base) MCG/ACT Inhalation every 4 hrs 2 puffs as needed 4h Jun, Active Ibuprofen 600 MG Orally 2 times a day 1 tablet 12h Active Proventil HFA 108 (90 Base) MCG/ACT Inhalation every 4 hrs 2 puffs as needed 4h Active Advair Diskus 250-50 MCG/DOSE Inhalation Twice a day 1 puff 12h Jan, Active Advocate Insulin Pen [place] 31G X 8 MM as directed 6h Jan, Active OxyContin 15 MG Orally every 12 hrs 1 tablet 12h 15 Dec, 2016 Active Lipitor 80 MG Orally Once a day 1 tablet 24h Active Lantus SoloStar 100 UNIT/ML Subcutaneous Once a day 110 units 24h Jan, Active Remeron 30 Orally Once a day 1 tablet at bedtime 24h 30 Active Gabapentin 300 MG Orally Three times a day 1 capsule 8h Active Protonix 40 MG Orally Once a day 1 tablet 24h Feb, Active Humalog KwikPen 100 UNIT/ML Subcutaneous 3 times a day 50 units 8h Jan, Active Hydrocodone-Acetaminophen 10-325 MG Orally 3 times a day 1 tablet as needed 8h 15 Dec, 2016 28 days Active Losartan Potassium 50 mg Orally Once a day 1 tablet 24h Jan, Active RESULTS Name Result Date Reference Range UA LONG DIP (IN HOUSE) 2017-01-02 Lot # [id number] Exp date 11/2017 Clarity clear Color orange Odor no GLU 3+ RILEY Neg KET Neg SG >1.030 BLO Neg pH 7.0 Protein 2+ URO 0.2 NIT Neg MICHAELA Neg Lot # Exp date PROCEDURES Procedure Date Ordered Result Body Site MEASURE BLOOD OXYGEN LEVEL Jan 02, 2017 URINALYSIS, AUTO, W/O SCOPE Jan 02, 2017 [facility] VISIT ESTABLISHED PATIENT Jan 02, 2017 IMMUNIZATIONS No Known Immunizations MEDICAL (GENERAL) HISTORY Type Description Date Medical [...]
--- OUTSIDE RECORDS SUMMARY | 2018-03-05 21:22 | XMS REPORT ---
Author Author SYBIL NEW Organization [facility] Address [address] [place] [address] Care Team Providers Care Machine Bender Name Role Phone SHAQ SYBIL Unavailable PROBLEMS Type Condition ICD9-CM Code UEU31-YD Code Onset Dates Condition Status SNOMED Code Problem Pure hypercholesterolemia, unspecified E78.00 Active 707568876 Problem 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 Active 854479395 Problem 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 638025374 Problem Primary insomnia F51.01 Active 9253267 Problem Unspecified open wound, right knee, initial encounter S81.001A Active 102107954 Problem Neuropathy G62.9 Active 670293346 Problem Emphysema lung J43.9 Active 38028651 Problem GERD (gastroesophageal reflux disease) K21.9 Active 654926944 Problem HTN (hypertension) I10 Active 62140394 ALLERGIES Substance Reaction Event Type Date Status Lyrica Unknown Drug Allergy Jan, Active SOCIAL HISTORY Never Assessed PLAN OF CARE Activity Details Follow Up 2 Months Reason:DM VITAL SIGNS Height 72.0 in 2017-01-30 Weight 377 lbs 2017-01-30 Temperature 98.0 degrees Fahrenheit 2017-01-30 Heart Rate 78 bpm 2017-01-30 Respiratory Rate 24 2017-01-30 BMI 51.12 kg/m2 2017-01-30 Blood pressure systolic 148 mmHg 2017-01-30 Blood pressure diastolic 88 mmHg 2017-01-30 MEDICATIONS Medication Instructions Dosage Frequency Start Date End Date Duration Status Protonix 40 MG Orally Once a day 1 tablet 24h Feb, Active Lipitor 80 MG Orally Once a day 1 tablet 24h Active Gabapentin 300 MG Orally Three times a day 1 capsule 8h Active Advocate Insulin Pen [place] 31G X 8 MM as directed 6h Jan, Active Lantus SoloStar 100 UNIT/ML Subcutaneous Once a day 110 units 24h Jan, Active OxyContin 15 MG Orally every 12 hrs 1 tablet 12h Jan, Active Ibuprofen 600 MG Orally 2 times a day 1 tablet 12h Active Losartan Potassium 50 mg Orally Once a day 1 tablet 24h Jan, Active Advair Diskus 250-50 MCG/DOSE Inhalation Twice a day 1 puff 12h Jan, Active Hydrocodone-Acetaminophen 10-325 MG Orally 3 times a day 1 tablet as needed 8h Jan, Active ProAir HFA 108 (90 Base) MCG/ACT Inhalation every 4 hrs 2 puffs as needed 4h Jun, Active Humalog KwikPen 100 UNIT/ML Subcutaneous 3 times a day 50 units 8h Jan, Active RESULTS No Results PROCEDURES Procedure Date Ordered Result Body Site [facility] VISIT ESTABLISHED PATIENT January 30, 2017 IMMUNIZATIONS No Known Immunizations MEDICAL (GENERAL) [...]
--- OUTSIDE RECORDS SUMMARY | 2018-03-05 21:22 | XMS REPORT ---
Author SYBIL Keller [facility] eClinicalWorks Address Unknown Phone Unavailable Care Team Providers Care Pen Or Pencil Assembly Machine Operator Name Role Phone SYBIL NEW CP Unavailable Allergies No Known Allergies Problems Problem Type Condition Code Onset Dates Condition Status Problem HTN (hypertension) I10 Active Problem GERD (gastroesophageal reflux disease) K21.9 Active Problem 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 Problem 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 Active Problem Neuropathy G62.9 Active Problem Emphysema lung J43.9 Active Medications Medication Code System Code Instructions Start Date End Date Status Dosage Hydrocodone-Acetaminophen [facility] [address]-84 10-325 MG Orally 3 times a day 1 tablet as needed Results No Known Results Summary Purpose eClinicalWorks Submission
--- OUTSIDE RECORDS SUMMARY | 2018-03-05 21:22 | XMS REPORT ---
Author Author SYBIL Rubi Organization [facility] Address [address] [place] [address] Care Team Providers Care Manual Equipment Mechanic Name Role Phone SYBIL Rubi Unavailable PROBLEMS Type Condition ICD9-CM Code IVD24-QG Code Onset Dates Condition Status SNOMED Code Problem GERD (gastroesophageal reflux disease) K21.9 Active 569410504 Problem High risk medication use Z79.899 Active 331616137896474 Problem Primary insomnia F51.01 Active 4906865 Problem Morbid obesity E66.01 Active 801026564 Problem Excessive daytime sleepiness G47.19 Active 687744699693 Problem Body mass index (BMI) of 50-59.9 in adult Z68.43 Active 653051157 Problem Long-term insulin use Z79.4 Active 460290617 Problem Controlled substance agreement signed Z79.899 Active 038328111 Problem Irregular heart rhythm I49.9 Active 017389427 Problem 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 148491030 Problem Emphysema lung J43.9 Active 15713627 Problem Pure hypercholesterolemia, unspecified E78.00 Active 547935804 Problem Neuropathy G62.9 Active 088361788 Problem 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 Active 509175225 Problem HTN (hypertension) I10 Active 79215887 ALLERGIES No Information ENCOUNTERS Encounter Location Date Diagnosis [facility] [id number], [place] [address] Jan, Snoring R06.83 ; Morbid obesity E66.01 and Excessive daytime sleepiness G47.19 [facility] [id number], [place] [address] Jan, Emphysema lung J43.9 [facility] [id number], [place] [address] 13 Jan, 2018 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 [place] [address] [place] [address] 17084- 5690 Dec, Type 2 diabetes mellitus with other circulatory complications E11.59 ; HTN (hypertension) I10 and Pure hypercholesterolemia, unspecified E78.00 [place] [address] [place] [address] 45399- 9426 Dec, Type 2 diabetes mellitus with other [...] G62.9 and GERD (gastroesophageal reflux disease) K21.9 [place] [address] [place] [address] 98370- 0502 13 Dec, 2017 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 [place] [id number] [place] [address] 96823- 7332 Dec, [place] [address] [place] [address] 93013- 8824 Nov, 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 [facility] [id number] [place] [address] [id number] Oct, GERD (gastroesophageal reflux disease) K21.9 [place] [address] [place] [address] 50581- 0415 Oct, HTN (hypertension) I10 ; GERD (gastroesophageal reflux disease) K21.9 and 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 [place] [id number] [place] [address] 78797- 9640 Oct, [place] [id number] [place] [address] 75098- 6439 Oct, [facility] [address], [place] [address] 6596 Sep, Type 2 diabetes mellitus with other circulatory complications E11.59 and 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 [place] [address], [place] [address] 5649 Sep, Type 2 diabetes mellitus with other circulatory complications E11.59 [place] [id number] [place] [address] 56227- 0192 Aug, [place] [id number] [place] [address] 32904- 6944 Aug, Type 2 diabetes mellitus with other circulatory complications E11.59 ; HTN (hypertension) I10 ; GERD (gastroesophageal reflux disease) K21.9 ; Neuropathy G62.9 ; 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 ; Encounter for tobacco use cessation counseling Z71.6 and BMI 40.0-44.9, adult Z68.41 [place] [address], [place] [address] 0231 Aug, [place] [id number] [place] [address] 94076- 8884 Aug, 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 [place] [address], [place] [address] 5033 Aug, Type 2 diabetes mellitus with other circulatory complications E11.59 [place] [address] [address] 0193 Aug, [place] [id number] [place] [address] 26717- 7619 Aug, [place] [address] [place] [address] 63711- 1051 Jul, Encounter for immunization Z23 ; Type 2 diabetes mellitus with other circulatory complications E11.59 ; GERD (gastroesophageal reflux disease) K21.9 and Neuropathy G62.9 [place] [address], [place] [address] 0541 Jul, 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 [facility] [id number] [place] [address] 32610- 0674 Jul, [facility] [id number] [place] [address] 06496- 7832 Jun, 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 [facility] [id number] [place] [address] 04197- 2951 Jun, 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 [place] [id number] [place] [address] 24880- 0256 May, 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 [place] [id number] [place] [address] 20655- 5714 Apr, [place] [id number] [place] [address] 66453- 1220 Apr, Unspecified open wound, right knee, initial encounter S81.001A [place] [id number] [place] [address] 70487- 0746 Apr, Unspecified open wound, right knee, initial encounter S81.001A [place] [id number] [place] [address] 61779- 6772 Apr, Type 2 diabetes mellitus with other circulatory complications E11.59 ; HTN (hypertension) I10 ; GERD (gastroesophageal reflux disease) K21.9 ; Emphysema lung J43.9 ; Primary insomnia F51.01 ; Unspecified open wound, right knee, initial encounter S81.001A ; Pure hypercholesterolemia, unspecified E78.00 ; Neuropathy G62.9 and 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 [place] [address] [place] [address] 59563- 3135 Apr, Neuropathy G62.9 [place] [id number] [place] [address] 61466- 2944 March, Neuropathy G62.9 [place] [id number] [place] [address] 89746- 0677 March, [place] [id number] [place] [address] 92829- 5060 Feb, Neuropathy G62.9 [place] [id number] [place] [address] 39489- 9762 Jan, Type 2 diabetes mellitus with other circulatory complications E11.59 ; HTN (hypertension) I10 ; GERD (gastroesophageal reflux disease) K21.9 ; Neuropathy G62.9 ; Emphysema lung J43.9 ; Hypercholesterolemia E78.0 ; Primary insomnia F51.01 and Unspecified open wound, right knee, initial encounter S81.001A [place] [id number] [place] [address] 03645- 2823 14 Dec, 2016 Type 2 diabetes mellitus with other circulatory complications E11.59 ; Neuropathy G62.9 ; 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 ; HTN (hypertension) I10 ; GERD (gastroesophageal reflux disease) K21.9 ; Hypercholesterolemia E78.0 ; Emphysema lung J43.9 and Dysuria R30.0 [place] [id number] [place] [address] 45129- 1833 Nov, [place] [id number] [place] [address] 81619- 1079 Nov, 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 [place] [id number] [place] [address] 77687- 4859 Nov, [place] [id number] [place] [address] 63345- 2400 Nov, [place] [id number] [place] [address] 49669- 6113 Nov, Type 2 diabetes mellitus with other circulatory complications E11.59 ; HTN (hypertension) I10 ; Neuropathy G62.9 ; Emphysema lung J43.9 ; 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 ; Hypercholesterolemia E78.0 ; GERD (gastroesophageal reflux disease) K21.9 ; Unspecified open wound, right knee, initial encounter S81.001A and Primary insomnia F51.01 [place] [id number] [place] [address] 92301- 2530 Oct, [place] [id number] [place] [address] 96858- 6669 Oct, [place] [id number] [place] [address] 80653- 9127 Oct, [place] [id number] [place] [address] 17845- 4262 Sep, [place] [id number] [place] [address] 24447- 1085 Aug, [place] [id number] [place] [address] 59026- 1974 Jul, Type 2 diabetes mellitus with other circulatory complications E11.59 ; HTN (hypertension) I10 ; Neuropathy G62.9 ; Emphysema lung J43.9 ; 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 ; Hypercholesterolemia E78.0 and Gastroesophageal reflux disease without esophagitis K21.9 [place] [id number] [place] [address] 49392- 9299 Jun, [place] [id number] [place] [address] 27868- 9619 Jun, [place] [id number] [place] [address] 43343- 1185 May, [place] [id number] [place] [address] 17891- 1465 May, Type 2 diabetes mellitus with other circulatory complications E11.59 ; HTN (hypertension) I10 ; GERD (gastroesophageal reflux disease) K21.9 ; Neuropathy G62.9 ; Emphysema lung J43.9 and Hypercholesterolemia E78.0 [place] [id number] [place] [address] 71607- 1038 Apr, Neuropathy G62.9 and Type 2 diabetes mellitus with other circulatory complications E11.59 [place] [id number] [place] [address] 69372- 2268 Apr, Neuropathy G62.9 [facility] [id number] [place] [address] 14709- 2114 March, Type 2 diabetes mellitus with other circulatory complications E11.59 ; HTN (hypertension) I10 ; Neuropathy G62.9 ; Emphysema lung J43.9 ; 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 ; Hypercholesterolemia E78.0 and Gastroesophageal reflux disease with esophagitis K21.0 [place] [id number] [place] [address] 83030- 7787 Feb, [place] [id number] [place] [address] 64659- 5599 Feb, [facility] [id number] [place] [address] 66958- 3924 Jan, [place] [id number] [place] [address] 76692- 3698 Jan, Type 2 diabetes mellitus with other circulatory complications E11.59 ; HTN (hypertension) I10 ; GERD (gastroesophageal reflux disease) K21.9 ; Neuropathy G62.9 ; Emphysema lung J43.9 ; 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 and Hypercholesterolemia E78.0 [facility] [id number] [place] [address] 43113- 2122 Jan, [facility] [address] [place] [address] [id number] Dec, Dental examination Z01.20 and Dental caries K02.9 IMMUNIZATIONS No Known Immunizations SOCIAL HISTORY Never Assessed REASON FOR VISIT Controlled Med Refill PLAN OF CARE VITAL SIGNS MEDICATIONS Medication Instructions Dosage Frequency Start Date End Date Duration Status Hydrocodone-Acetaminophen 10-325 MG Orally 3 times a day 1 tablet as needed 8h Jun, 28 days Active OxyContin 15 MG Orally every 12 hrs 1 tablet 12h Jun, 28 days Active RESULTS No Results PROCEDURES No Known procedures INSTRUCTIONS MEDICATIONS ADMINISTERED No Known Medications MEDICAL [...]
--- OUTSIDE RECORDS SUMMARY | 2018-03-05 21:22 | XMS REPORT ---
Author Author SYBIL Rubi Organization [facility] Address [address] [place] [address] Care Team Providers Care Channeling Machine Operator Name Role Phone SYBIL Rubi Unavailable PROBLEMS Type Condition ICD9-CM Code MCE75-MV Code Onset Dates Condition Status SNOMED Code Problem GERD (gastroesophageal reflux disease) K21.9 Active 891576080 Problem High risk medication use Z79.899 Active 933300648085835 Problem Primary insomnia F51.01 Active 0287606 Problem Morbid obesity E66.01 Active 514499450 Problem Excessive daytime sleepiness G47.19 Active 828811326801 Problem Body mass index (BMI) of 50-59.9 in adult Z68.43 Active 631102520 Problem Long-term insulin use Z79.4 Active 431340228 Problem Controlled substance agreement signed Z79.899 Active 130033211 Problem Irregular heart rhythm I49.9 Active 266029669 Problem 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 077612154 Problem Emphysema lung J43.9 Active 77524461 Problem Pure hypercholesterolemia, unspecified E78.00 Active 688136344 Problem Neuropathy G62.9 Active 967233112 Problem 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 Active 053216991 Problem HTN (hypertension) I10 Active 23302000 ALLERGIES No Information ENCOUNTERS Encounter Location Date Diagnosis [facility] [id number], [place] [address]- 9092 Jan, Snoring R06.83 ; Morbid obesity E66.01 and Excessive daytime sleepiness G47.19 [facility] [id number], [place] [address]- 9863 Jan, Emphysema lung J43.9 [facility] [id number], [place] [address]- 4297 13 Jan, 2018 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 [place] [address] [place] [address] 65642- 5413 Dec, Type 2 diabetes mellitus with other circulatory complications E11.59 ; HTN (hypertension) I10 and Pure hypercholesterolemia, unspecified E78.00 [place] [address] [place] [address] 96050- 7616 Dec, Type 2 diabetes mellitus with other [...] G62.9 and GERD (gastroesophageal reflux disease) K21.9 [place] [address] [place] [address] 19856- 1883 13 Dec, 2017 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 [place] [id number] [place] [address] 54648- 4990 Dec, [place] [address] [place] [address] 49500- 8389 Nov, 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 [facility] [id number] [place] [address] [id number] Oct, GERD (gastroesophageal reflux disease) K21.9 [place] [address] [place] [address] 98958- 1227 Oct, HTN (hypertension) I10 ; GERD (gastroesophageal reflux disease) K21.9 and 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 [place] [id number] [place] [address] 60568- 0620 Oct, [place] [id number] [place] [address] 00649- 1251 Oct, [facility] [address], [place] [address]- 8896 Sep, Type 2 diabetes mellitus with other circulatory complications E11.59 and 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 [place] [address], [place] [address]- 1679 Sep, Type 2 diabetes mellitus with other circulatory complications E11.59 [place] [id number] [place] [address] 31068- 1397 Aug, [place] [id number] [place] [address] 85488- 8602 Aug, Type 2 diabetes mellitus with other circulatory complications E11.59 ; HTN (hypertension) I10 ; GERD (gastroesophageal reflux disease) K21.9 ; Neuropathy G62.9 ; 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 ; Encounter for tobacco use cessation counseling Z71.6 and BMI 40.0-44.9, adult Z68.41 [place] [address], [place] [address]- 4588 Aug, [place] [id number] [place] [address] 69550- 8728 Aug, 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 [place] [address], [place] [address]- 6266 Aug, Type 2 diabetes mellitus with other circulatory complications E11.59 [place] [address], [place] [address]- 1053 Aug, [place] [id number] [place] [address] 66913- 0180 Aug, [place] [address] [place] [address] 01811- 6459 Jul, Encounter for immunization Z23 ; Type 2 diabetes mellitus with other circulatory complications E11.59 ; GERD (gastroesophageal reflux disease) K21.9 and Neuropathy G62.9 [place] [address], [place] [address]- 7191 Jul, 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 [facility] [id number] [place] [address] 27568- 4211 Jul, [facility] [id number] [place] [address] 70021- 9508 Jun, 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 [facility] [id number] [place] [address] 56728- 4787 Jun, 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 [place] [id number] [place] [address] 12377- 8504 May, 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 [place] [id number] [place] [address] 58302- 0458 Apr, [place] [id number] [place] [address] 00941- 1086 Apr, Unspecified open wound, right knee, initial encounter S81.001A [place] [id number] [place] [address] 85077- 2413 Apr, Unspecified open wound, right knee, initial encounter S81.001A [place] [id number] [place] [address] 43597- 5938 Apr, Type 2 diabetes mellitus with other circulatory complications E11.59 ; HTN (hypertension) I10 ; GERD (gastroesophageal reflux disease) K21.9 ; Emphysema lung J43.9 ; Primary insomnia F51.01 ; Unspecified open wound, right knee, initial encounter S81.001A ; Pure hypercholesterolemia, unspecified E78.00 ; Neuropathy G62.9 and 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 [place] [address] [place] [address] 06473- 6623 Apr, Neuropathy G62.9 [place] [id number] [place] [address] 22364- 5003 March, Neuropathy G62.9 [place] [id number] [place] [address] 20564- 6302 March, [place] [id number] [place] [address] 36582- 0376 Feb, Neuropathy G62.9 [place] [id number] [place] [address] 10550- 8722 Jan, Type 2 diabetes mellitus with other circulatory complications E11.59 ; HTN (hypertension) I10 ; GERD (gastroesophageal reflux disease) K21.9 ; Neuropathy G62.9 ; Emphysema lung J43.9 ; Hypercholesterolemia E78.0 ; Primary insomnia F51.01 and Unspecified open wound, right knee, initial encounter S81.001A [place] [id number] [place] [address] 60619- 4746 14 Dec, 2016 Type 2 diabetes mellitus with other circulatory complications E11.59 ; Neuropathy G62.9 ; 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 ; HTN (hypertension) I10 ; GERD (gastroesophageal reflux disease) K21.9 ; Hypercholesterolemia E78.0 ; Emphysema lung J43.9 and Dysuria R30.0 [place] [id number] [place] [address] 54733- 7405 Nov, [place] [id number] [place] [address] 46851- 5915 Nov, 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 [place] [id number] [place] [address] 38128- 1171 Nov, [place] [id number] [place] [address] 20159- 2277 Nov, [place] [id number] [place] [address] 08563- 2772 Nov, Type 2 diabetes mellitus with other circulatory complications E11.59 ; HTN (hypertension) I10 ; Neuropathy G62.9 ; Emphysema lung J43.9 ; 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 ; Hypercholesterolemia E78.0 ; GERD (gastroesophageal reflux disease) K21.9 ; Unspecified open wound, right knee, initial encounter S81.001A and Primary insomnia F51.01 [place] [id number] [place] [address] 88791- 2333 Oct, [place] [id number] [place] [address] 03447- 3159 Oct, [place] [id number] [place] [address] 93254- 0662 Oct, [place] [id number] [place] [address] 25829- 3769 Sep, [place] [id number] [place] [address] 84057- 9530 Aug, [place] [id number] [place] [address] 93555- 2846 Jul, Type 2 diabetes mellitus with other circulatory complications E11.59 ; HTN (hypertension) I10 ; Neuropathy G62.9 ; Emphysema lung J43.9 ; 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 ; Hypercholesterolemia E78.0 and Gastroesophageal reflux disease without esophagitis K21.9 [place] [id number] [place] [address] 00019- 4878 Jun, [place] [id number] [place] [address] 76395- 9202 Jun, [place] [id number] [place] [address] 66546- 9084 May, [place] [id number] [place] [address] 68476- 7747 May, Type 2 diabetes mellitus with other circulatory complications E11.59 ; HTN (hypertension) I10 ; GERD (gastroesophageal reflux disease) K21.9 ; Neuropathy G62.9 ; Emphysema lung J43.9 and Hypercholesterolemia E78.0 [place] [id number] [place] [address] 64992- 3465 Apr, Neuropathy G62.9 and Type 2 diabetes mellitus with other circulatory complications E11.59 [place] [id number] [place] [address] 32564- 5948 Apr, Neuropathy G62.9 [facility] [id number] [place] [address] 97813- 6862 March, Type 2 diabetes mellitus with other circulatory complications E11.59 ; HTN (hypertension) I10 ; Neuropathy G62.9 ; Emphysema lung J43.9 ; 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 ; Hypercholesterolemia E78.0 and Gastroesophageal reflux disease with esophagitis K21.0 [place] [id number] [place] [address] 52652- 5548 Feb, [place] [id number] [place] [address] 88418- 1493 Feb, [facility] [id number] [place] [address] 34791- 6751 Jan, [place] [id number] [place] [address] 72235- 2975 Jan, Type 2 diabetes mellitus with other circulatory complications E11.59 ; HTN (hypertension) I10 ; GERD (gastroesophageal reflux disease) K21.9 ; Neuropathy G62.9 ; Emphysema lung J43.9 ; 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 and Hypercholesterolemia E78.0 [facility] [id number] [place] [address] 46577- 8172 Jan, [facility] [address] [place] [address] [phone] Dec, Dental examination Z01.20 and Dental caries K02.9 IMMUNIZATIONS No Known Immunizations SOCIAL HISTORY Never Assessed REASON FOR VISIT Controlled Med Refill PLAN OF CARE VITAL SIGNS MEDICATIONS Medication Instructions Dosage Frequency Start Date End Date Duration Status OxyContin 15 MG Orally every 12 hrs 1 tablet 12h May, 28 days Active Hydrocodone-Acetaminophen 10-325 MG Orally 3 times a day 1 tablet as needed 8h May, 28 days Active RESULTS No Results PROCEDURES [...]
--- OUTSIDE RECORDS SUMMARY | 2018-03-05 21:22 | XMS REPORT ---
Author Author SYBIL NEW Organization [facility] Address [address] [place] [address] Care Team Providers Care Industrial Hygiene Engineer Name Role Phone SYBIL NEW Unavailable PROBLEMS Type Condition ICD9-CM Code [id number]-OR Code Onset Dates Condition Status SNOMED Code Problem Pure hypercholesterolemia, unspecified E78.00 Active 009456305 Problem 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 Active 085179946 Problem 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 947889649 Problem Primary insomnia F51.01 Active 9282171 Problem Unspecified open wound, right knee, initial encounter S81.001A Active 277884050 Problem Neuropathy G62.9 Active 600554029 Problem Emphysema lung J43.9 Active 83845203 Problem GERD (gastroesophageal reflux disease) K21.9 Active 419611381 Problem HTN (hypertension) I10 Active 05270693 ALLERGIES Unknown Allergies SOCIAL HISTORY No smoking Hx information available PLAN OF CARE VITAL SIGNS MEDICATIONS Medication Instructions Dosage Frequency Start Date End Date Duration Status Hydrocodone-Acetaminophen 10-325 MG Orally 3 times a day 1 tablet as needed 8h Nov, Dec, 28 days Active RESULTS No Results PROCEDURES No Known procedures IMMUNIZATIONS No Known Immunizations
--- OUTSIDE RECORDS SUMMARY | 2018-03-05 21:23 | XMS REPORT ---
Author Author SYBIL NEW Organization [facility] Address [address] [place] [address] Care Team Providers Care Medical Records Tech Name Role Phone SYBIL NEW Unavailable PROBLEMS Type Condition ICD9-CM Code LRD77-YP Code Onset Dates Condition Status SNOMED Code Problem Pure hypercholesterolemia, unspecified E78.00 Active 327374035 Problem 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 Active 228851622 Problem 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 360480288 Problem Primary insomnia F51.01 Active 9467008 Problem Unspecified open wound, right knee, initial encounter S81.001A Active 740873793 Problem Neuropathy G62.9 Active 578769549 Problem Emphysema lung J43.9 Active 50546560 Problem GERD (gastroesophageal reflux disease) K21.9 Active 469916426 Problem HTN (hypertension) I10 Active 81480282 ALLERGIES Unknown Allergies SOCIAL HISTORY No smoking Hx information available PLAN OF CARE VITAL SIGNS MEDICATIONS Unknown Medications RESULTS No Results PROCEDURES No Known procedures IMMUNIZATIONS No Known Immunizations
--- OUTSIDE RECORDS SUMMARY | 2018-03-05 21:23 | XMS REPORT ---
Author Author SYBIL NEW Organization [facility] Address [address] [place] [address] Care Team Providers Care Contact Lens Inspector Name Role Phone SHAQ SYBIL Unavailable PROBLEMS Type Condition ICD9-CM Code UYK05-BT Code Onset Dates Condition Status SNOMED Code Problem Pure hypercholesterolemia, unspecified E78.00 Active 992375779 Problem 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 Active 129290761 Problem 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 209501105 Problem Primary insomnia F51.01 Active 1259196 Problem Unspecified open wound, right knee, initial encounter S81.001A Active 597035388 Problem Neuropathy G62.9 Active 835861316 Problem Emphysema lung J43.9 Active 53510765 Problem GERD (gastroesophageal reflux disease) K21.9 Active 730863019 Problem HTN (hypertension) I10 Active 64828341 ALLERGIES No Information SOCIAL HISTORY Never Assessed PLAN OF CARE VITAL SIGNS MEDICATIONS Medication Instructions Dosage Frequency Start Date End Date Duration Status OxyContin 15 MG Orally every 12 hrs 1 tablet 12h Apr, 28 days Active Hydrocodone-Acetaminophen 10-325 MG Orally 3 times a day 1 tablet as needed 8h Apr, 28 days Active RESULTS No Results PROCEDURES No Known procedures IMMUNIZATIONS No Known Immunizations MEDICAL (GENERAL) HISTORY [...]
--- OUTSIDE RECORDS SUMMARY | 2018-03-05 21:23 | XMS REPORT ---
Author Author SYBIL Rubi Organization [facility] Address [address] [place] [address] Care Team Providers Care Plush Cutter Name Role Phone rylanJESICA SYBIL Unavailable PROBLEMS Type Condition ICD9-CM Code HMN50-QH Code Onset Dates Condition Status SNOMED Code Problem 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 475392668 Problem Primary insomnia F51.01 Active 3334611 Problem GERD (gastroesophageal reflux disease) K21.9 Active 388265363 Problem High risk medication use Z79.899 Active 633639502072605 Problem Long-term insulin use Z79.4 Active 947460829 Problem Morbid (severe) obesity due to excess calories E66.01 Active 120131498 Problem Body mass index (BMI) of 50-59.9 in adult Z68.43 Active 965893943 Problem Controlled substance agreement signed Z79.899 Active 965754772 Problem Irregular heart rhythm I49.9 Active 633818699 Problem Emphysema lung J43.9 Active 25621832 Problem Neuropathy G62.9 Active 997465315 Problem HTN (hypertension) I10 Active 70046562 Problem Pure hypercholesterolemia, unspecified E78.00 Active 968337060 Problem 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 Active 992142510 ALLERGIES No Information ENCOUNTERS Encounter Location Date Diagnosis [facility] [id number] [place] [address] 43502- 4222 Jan, Emphysema lung J43.9 [facility] [id number] [place] [address] 87773- 9861 Jan, 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 [facility] [address] [address] 28 Dec, 2017 Type 2 diabetes mellitus with other circulatory complications E11.59 ; HTN (hypertension) I10 and Pure hypercholesterolemia, unspecified E78.00 [place] [id number] [place] [address] 55818- 2707 27 Dec, 2017 Type 2 diabetes mellitus [...] G62.9 and GERD (gastroesophageal reflux disease) K21.9 [facility] [id number] [place] [address] 04179- 8294 13 Dec, 2017 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 [facility] [id number] [place] [address] 54339- 9778 Dec, [place] [facility] [id number] [place] [address] 29005- 7827 Nov, 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 [place] [id number] [place] [id number] Oct, GERD (gastroesophageal reflux disease) K21.9 [facility] [facility] [address] [place] [address] 16858- 9913 Oct, HTN (hypertension) I10 ; GERD (gastroesophageal reflux disease) K21.9 and 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 [facility] [id number] [place] [address] 44767- 0420 Oct, [place] [address] [address]- 1380 Oct, [place] [id number] [place] [address] 54595- 2344 Sep, Type 2 diabetes mellitus with other circulatory complications E11.59 and 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 [facility] [id number] [place] [address] 58378- 9642 Sep, Type 2 diabetes mellitus with other circulatory complications E11.59 [facility] [id number] [place] [address] 80443- 2091 Aug, [facility] [id number] [place] [address] 95217- 9971 Aug, Type 2 diabetes mellitus with other circulatory complications E11.59 ; HTN (hypertension) I10 ; GERD (gastroesophageal reflux disease) K21.9 ; Neuropathy G62.9 ; 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 ; Encounter for tobacco use cessation counseling Z71.6 and BMI 40.0-44.9, adult Z68.41 [facility] [id number] [place] [address] 07882- 0065 Aug, [facility] [id number] [place] [address] 11659- 1173 Aug, 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 [facility] [id number] [place] [address] 54195- 3751 Aug, Type 2 diabetes mellitus with other circulatory complications E11.59 [place] [id number] [place] [address] 00975- 3064 Aug, [facility] [id number] [place] [address] 23721- 5232 Aug, [facility] [id number] [place] [address] 13350- 6678 Jul, Encounter for immunization Z23 ; Type 2 diabetes mellitus with other circulatory complications E11.59 ; GERD (gastroesophageal reflux disease) K21.9 and Neuropathy G62.9 [facility] [id number] [place] [address] 73872- 9523 Jul, 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 [facility] [id number] [place] [address] 19410- 5938 Jul, [facility] [address] [address] Jun, 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 [facility] [address] [place] [address] 26980- 0164 Jun, 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 [facility] [id number] [place] [address] 41665- 0326 May, 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 [facility] [id number] [place] [address] 78860- 4830 Apr, [facility] [id number] [place] [address] 38095- 7334 Apr, Unspecified open wound, right knee, initial encounter S81.001A [facility] [facility] [id number] [place] [address] 46071- 0482 Apr, Unspecified open wound, right knee, initial encounter S81.001A [facility] [facility] [address] [place] [address] 63545- 9264 Apr, Type 2 diabetes mellitus with other circulatory complications E11.59 ; HTN (hypertension) I10 ; GERD (gastroesophageal reflux disease) K21.9 ; Emphysema lung J43.9 ; Primary insomnia F51.01 ; Unspecified open wound, right knee, initial encounter S81.001A ; Pure hypercholesterolemia, unspecified E78.00 ; Neuropathy G62.9 and 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 [facility] [id number] [address] Apr, Neuropathy G62.9 [facility] [id number] [place] [address] 97037- 0095 March, Neuropathy G62.9 [facility] [address] [address] March, [facility] [address] [place] [address] 04341- 2315 Feb, Neuropathy G62.9 [facility] [id number] [place] [address] 57834- 9364 14 Jan, 2017 Type 2 diabetes mellitus with other circulatory complications E11.59 ; HTN (hypertension) I10 ; GERD (gastroesophageal reflux disease) K21.9 ; Neuropathy G62.9 ; Emphysema lung J43.9 ; Hypercholesterolemia E78.0 ; Primary insomnia F51.01 and Unspecified open wound, right knee, initial encounter S81.001A [place] [address] [place] [address] 41706- 0657 14 Dec, 2016 Type 2 diabetes mellitus with other circulatory complications E11.59 ; Neuropathy G62.9 ; 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 ; HTN (hypertension) I10 ; GERD (gastroesophageal reflux disease) K21.9 ; Hypercholesterolemia E78.0 ; Emphysema lung J43.9 and Dysuria R30.0 [facility] [facility] [id number] [place] [address] 07109- 9232 Nov, [facility] [facility] [id number] [place] [address] 29903- 6963 Nov, 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 [facility] [facility] [address] [place] [address] 05956- 0877 Nov, [facility] [facility] [id number] [place] [address] 98684- 9500 Nov, [facility] [facility] [id number] [place] [address] 18809- 5690 Nov, Type 2 diabetes mellitus with other circulatory complications E11.59 ; HTN (hypertension) I10 ; Neuropathy G62.9 ; Emphysema lung J43.9 ; 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 ; Hypercholesterolemia E78.0 ; GERD (gastroesophageal reflux disease) K21.9 ; Unspecified open wound, right knee, initial encounter S81.001A and Primary insomnia F51.01 [place] [address] [place] [address]- 25[address] Oct, [facility] [id number] [place] [address] 02391- 0602 Oct, [facility] [id number] [place] [address] 98521- 6548 Oct, [facility] [id number] [place] [address] 55581- 1166 Sep, [facility] [id number] [place] [address] 69122- 4328 Aug, [facility] [id number] [place] [address] 19032- 5686 Jul, Type 2 diabetes mellitus with other circulatory complications E11.59 ; HTN (hypertension) I10 ; Neuropathy G62.9 ; Emphysema lung J43.9 ; 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 ; Hypercholesterolemia E78.0 and Gastroesophageal reflux disease without esophagitis K21.9 [facility] [id number] [place] [address] 13118- 7124 Jun, [facility] [id number] [place] [address] 98724- 4757 Jun, [facility] [id number] [place] [address] 92279- 5772 May, [place] [id number] [place] [address] 82483- 1439 May, Type 2 diabetes mellitus with other circulatory complications E11.59 ; HTN (hypertension) I10 ; GERD (gastroesophageal reflux disease) K21.9 ; Neuropathy G62.9 ; Emphysema lung J43.9 and Hypercholesterolemia E78.0 [facility] [id number] [place] [address] 15760- 1557 Apr, Neuropathy G62.9 and Type 2 diabetes mellitus with other circulatory complications E11.59 [facility] [id number] [place] [address] 58644- 5966 Apr, Neuropathy G62.9 [facility] [address] [place] [address] 36692- 7274 March, Type 2 diabetes mellitus with other circulatory complications E11.59 ; HTN (hypertension) I10 ; Neuropathy G62.9 ; Emphysema lung J43.9 ; 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 ; Hypercholesterolemia E78.0 and Gastroesophageal reflux disease with esophagitis K21.0 [facility] [address] 19082- 8243 Feb, [facility] [id number] [place] [address] 01725- 6808 Feb, [facility] [address] 28509- 0646 Jan, [place] [address] 09755- 2008 Jan, Type 2 diabetes mellitus with other circulatory complications E11.59 ; HTN (hypertension) I10 ; GERD (gastroesophageal reflux disease) K21.9 ; Neuropathy G62.9 ; Emphysema lung J43.9 ; 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 and Hypercholesterolemia E78.0 [facility] [id number] [place] [address] 93901- 9044 Jan, [facility] [id number] [place] [address] [phone] Dec, Dental examination Z01.20 and Dental caries K02.9 IMMUNIZATIONS No Known Immunizations SOCIAL HISTORY Never Assessed REASON FOR VISIT DM ed scheduled PLAN OF CARE VITAL SIGNS MEDICATIONS Unknown [...] back due to pinched nerve by Dr. Tohmas Surgical History Left leg massive hematoma when 11 years old Surgical History Great toe and 2nd toe amputated on left foot due to gangrene Hospitalization History Due to surgery 2016
--- OUTSIDE RECORDS SUMMARY | 2018-03-05 21:23 | XMS REPORT ---
Author Author SYBIL NEW Organization [facility] Address [address] [place] [address] Care Team Providers Care Business Analysis Professional Name Role Phone SYBIL NEW Unavailable PROBLEMS Type Condition ICD9-CM Code TST89-YT Code Onset Dates Condition Status SNOMED Code Problem Pure hypercholesterolemia, unspecified E78.00 Active 650717915 Problem 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 Active 917842341 Problem 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 845371800 Problem Primary insomnia F51.01 Active 0812043 Problem Unspecified open wound, right knee, initial encounter S81.001A Active 889686377 Problem Neuropathy G62.9 Active 652687159 Problem Emphysema lung J43.9 Active 31950692 Problem GERD (gastroesophageal reflux disease) K21.9 Active 687848054 Problem HTN (hypertension) I10 Active 84442221 ALLERGIES Unknown Allergies SOCIAL HISTORY No smoking Hx information available PLAN OF CARE VITAL SIGNS MEDICATIONS Unknown Medications RESULTS No Results PROCEDURES No Known procedures IMMUNIZATIONS No Known Immunizations
--- OUTSIDE RECORDS SUMMARY | 2018-03-05 21:23 | XMS REPORT ---
Author Author SYBIL NEW Organization [facility] [place] Address [address] [place] [address] Care Team Providers Care Cyber Security Manager Name Role Phone SHAQ SYBIL Unavailable PROBLEMS Type Condition ICD9-CM Code BQW75-UA Code Onset Dates Condition Status SNOMED Code Problem Pure hypercholesterolemia, unspecified E78.00 Active 120560856 Problem 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 Active 796285241 Problem 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 475442708 Problem Primary insomnia F51.01 Active 8635643 Problem Unspecified open wound, right knee, initial encounter S81.001A Active 071610998 Problem Neuropathy G62.9 Active 186234581 Problem Emphysema lung J43.9 Active 40512526 Problem GERD (gastroesophageal reflux disease) K21.9 Active 887938485 Problem HTN (hypertension) I10 Active 30358933 ALLERGIES Substance Reaction Event Type Date Status Lyrica Unknown Drug Allergy Nov, Active SOCIAL HISTORY No smoking Hx information available PLAN OF CARE Activity Details Follow Up 4 Weeks Reason:recheck his sleeping meds VITAL SIGNS Height 72.0 in 2016-11-21 Weight 374 lbs 2016-11-21 Temperature 98.3 degrees Fahrenheit 2016-11-21 Heart Rate 80 bpm 2016-11-21 Respiratory Rate 22 2016-11-21 BMI 50.72 kg/m2 2016-11-21 Blood pressure systolic 140 mmHg 2016-11-21 Blood pressure diastolic 94 mmHg 2016-11-21 MEDICATIONS Medication Instructions Dosage Frequency Start Date End Date Duration Status Advair Diskus 250-50 MCG/DOSE Inhalation Twice a day 1 puff 12h Jan, Active Humalog KwikPen 100 UNIT/ML Subcutaneous 3 times a day 50 units 8h Jan, Active Hydrocodone-Acetaminophen 10-325 MG Orally 3 times a day 1 tablet as needed 8h Oct, Active Lipitor 80 MG Orally Once a day 1 tablet 24h Active Losartan Potassium 50 mg Orally Once a day 1 tablet 24h Jan, Active Protonix 40 MG Orally Once a day 1 tablet 24h Feb, Active Proventil HFA 108 (90 Base) MCG/ACT Inhalation every 4 hrs 2 puffs as needed 4h Active Lantus SoloStar 100 UNIT/ML Subcutaneous Once a day 110 units 24h Jan, Active Gabapentin 300 MG Orally Three times a day 1 capsule 8h Active Ibuprofen 600 MG Orally 2 times a day 1 tablet 12h Active ProAir HFA 108 (90 Base) MCG/ACT Inhalation every 4 hrs 2 puffs as needed 4h Jun, Active Advocate Insulin Pen [place] 31G X 8 MM as directed 6h Jan, Active Remeron 30 MG Orally Once a day 1 tablet at bedtime 24h Nov, 30 day(s) Active RESULTS Name Result Date Reference Range A1C (IN HOUSE) 2016-11-21 A1C IN HOUSE 9.0 4.3 - 5.6 % Previous A1c 8.2 Lot [id number] Exp date Aug 2018 UA LONG DIP (IN HOUSE) 2016-11-21 Lot # [id number] Exp date 09/2017 Clarity clear Color RED Odor no GLU Neg RILEY 1+ KET Trace SG 1.025 BLO Neg pH 5.5 Protein 2+ URO 1.0 NIT Neg MICHAELA Neg Lot # Exp date [employer] 2016-11-21 CBC 2016-11-21 WBC 11.6 3.4-10.8 RBC 5.68 4.14-5.80 Hemoglobin 15.9 12.6-17.7 Hematocrit 48.1 37.5-51.0 MCV 85 79-97 MCH 28.0 26.6-33.0 MCHC 33.1 31.5-35.7 RDW 13.6 12.3-15.4 Platelets 206 150-379 Neutrophils 71 Lymphs 19 Monocytes 7 Eos 2 Basos 0 Immature Cells Neutrophils (Absolute) 8.2 1.4-7.0 Lymphs (Absolute) 2.3 0.7-3.1 Monocytes(Absolute) 0.8 0.1-0.9 Eos (Absolute) 0.3 0.0-0.4 Baso (Absolute) 0.0 0.0-0.2 Immature Granulocytes 1 Immature Grans (Abs) 0.1 0.0-0.1 NRBC Hematology Comments: PROCEDURES Procedure Date Ordered Related Diagnosis Body Site COMPLETE CBC W/AUTO DIFF WBC Nov 21, 2016 URINALYSIS, AUTO, W/O SCOPE Nov 21, 2016 No Charge Nov 21, 2016 Office Visit, Est Pt., Level 4 Nov 21, 2016 GLYCATED HEMOGLOBIN TEST Nov 21, 2016 VENIPUNCT, ROUTINE* Nov 21, 2016 IMMUNIZATIONS No Known Immunizations
--- OUTSIDE RECORDS SUMMARY | 2018-03-05 21:23 | XMS REPORT ---
Author Author SYBIL NEW [facility] Address [address] [place] [address] Care Team Providers Care Hide Selector Name Role Phone CECILIO NEWNETTE Unavailable PROBLEMS Type Condition ICD9-CM Code VQT40-PA Code Onset Dates Condition Status SNOMED Code Assessment Gastroesophageal reflux disease without esophagitis K21.9 Jul, Active 086439631 Problem 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 Active 097530292 Assessment Type 2 diabetes mellitus with other circulatory complications E11.59 Jul, Active 585647767 Problem Hypercholesterolemia E78.0 Active 98525186 Problem 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 421661401 Problem Neuropathy G62.9 Active 202776566 Problem Emphysema lung J43.9 Active 32051058 Problem HTN (hypertension) I10 Active 91670102 Problem GERD (gastroesophageal reflux disease) K21.9 Active 039689735 ALLERGIES Substance Reaction Event Type Date Status Lyrica Unknown Drug Allergy Jul, Active SOCIAL HISTORY No smoking Hx information available PLAN OF CARE VITAL SIGNS Height 72.0 in 2016-07-27 Weight 367 lbs 2016-07-27 Heart Rate 70 bpm 2016-07-27 Respiratory Rate 22 2016-07-27 BMI 49.77 kg/m2 2016-07-27 Blood pressure systolic 132 mmHg 2016-07-27 Blood pressure diastolic 84 mmHg 2016-07-27 MEDICATIONS Medication Instructions Dosage Frequency Start Date End Date Duration Status Lantus SoloStar 100 UNIT/ML Subcutaneous Once a day 90 units 24h Jan, Active Kombiglyze XR 2.5-1000 MG Orally Once a day 1 tablet with evening meal 24h Active Humalog KwikPen 100 UNIT/ML Subcutaneous 3 times a day 30 units 8h Jan, Active Hydrocodone-Acetaminophen 10-325 MG Orally 3 times a day 1 tablet as needed 8h Active Advair Diskus 250-50 MCG/DOSE Inhalation Twice a day 1 puff 12h Jan, Active Protonix 40 MG Orally Once a day 1 tablet 24h Feb, Active Losartan Potassium 50 mg Orally Once a day 1 tablet 24h Jan, Active Gabapentin 300 MG Orally Three times a day 1 capsule 8h Active Ibuprofen 600 MG Orally 2 times a day 1 tablet 12h Active Lipitor 80 MG Orally Once a day 1 tablet 24h Active Advocate Insulin Pen [place] 31G X 8 MM as directed 6h Jan, Active ProAir HFA 108 (90 Base) MCG/ACT Inhalation every 4 hrs 2 puffs as needed 4h Jun, Active RESULTS Name Result Date Reference Range A1C (IN HOUSE) 2016-07-27 A1C IN HOUSE 8.2 4.3 - 5.6 % Previous A1c 8.6 Lot [id number] Exp date PROCEDURES Procedure Date Ordered Related Diagnosis Body Site Office Visit, Est Pt., Level 4 Jul 27, 2016 GLYCATED HEMOGLOBIN TEST Jul 27, 2016 IMMUNIZATIONS No Known Immunizations
--- OUTSIDE RECORDS SUMMARY | 2018-03-05 21:23 | XMS REPORT ---
Author Author NICK JAVIER [facility] Address [address] [place] [address] Care Team Providers Care Radiology Supervisor Name Role Phone NICK JAVIER Unavailable PROBLEMS Type Condition ICD9-CM Code DBX07-[id number] Code Onset Dates Condition Status SNOMED Code Problem Pure hypercholesterolemia, unspecified E78.00 Active 889964799 Problem Emphysema lung J43.9 Active 07944878 Problem 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 Active 189920184 Problem Primary insomnia F51.01 Active 3321566 Problem Unspecified open wound, right knee, initial encounter S81.001A Active 196049006 Problem GERD (gastroesophageal reflux disease) K21.9 Active 415422457 Problem Neuropathy G62.9 Active 089149799 Problem 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 733138958 Problem HTN (hypertension) I10 Active 27647519 ALLERGIES Unknown Allergies SOCIAL HISTORY No smoking Hx information available PLAN OF CARE VITAL SIGNS MEDICATIONS Medication Instructions Dosage Frequency Start Date End Date Duration Status Hydrocodone-Acetaminophen 10-325 MG Orally 3 times a day 1 tablet as needed 8h 29 Oct, 2016 Active RESULTS No Results PROCEDURES No Known procedures IMMUNIZATIONS No Known Immunizations
--- OUTSIDE RECORDS SUMMARY | 2018-03-05 21:24 | XMS REPORT ---
Author SYBIL Keller [facility] eClinicalWorks Address Unknown Phone Unavailable Care Team Providers Care Development Coach Name Role Phone SYBIL NEW CP Unavailable Allergies No Known Allergies Problems Problem Type Condition Code Onset Dates Condition Status Problem 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 Problem HTN (hypertension) I10 Active Problem Hypercholesterolemia E78.0 Active Problem Emphysema lung J43.9 Active Problem 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 Active Problem GERD (gastroesophageal reflux disease) K21.9 Active Problem Neuropathy G62.9 Active Medications Medication Code System Code Instructions Start Date End Date Status Dosage Hydrocodone-Acetaminophen [facility] [address]-59 10-325 MG Orally 3 times a day 1 tablet as needed Results No Known Results Summary Purpose eClinicalWorks Submission
--- OUTSIDE RECORDS SUMMARY | 2018-03-05 21:24 | XMS REPORT ---
Author Author SYBIL Rubi Organization [facility] Address [address] [place] [address] Care Team Providers Care Financial Professional Name Role Phone [email or web address] SYBIL Unavailable PROBLEMS Type Condition ICD9-CM Code OES56-BX Code Onset Dates Condition Status SNOMED Code Problem 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 516366854 Problem Primary insomnia F51.01 Active 5547297 Problem GERD (gastroesophageal reflux disease) K21.9 Active 088037751 Problem High risk medication use Z79.899 Active [id number] Problem Long-term insulin use Z79.4 Active 361307066 Problem Morbid (severe) obesity due to excess calories E66.01 Active 295284730 Problem Body mass index (BMI) of 50-59.9 in adult Z68.43 Active 622519395 Problem Controlled substance agreement signed Z79.899 Active 829890677 Problem Irregular heart rhythm I49.9 Active 372124285 Problem Emphysema lung J43.9 Active 53252747 Problem Neuropathy G62.9 Active 854295692 Problem HTN (hypertension) I10 Active 54120070 Problem Pure hypercholesterolemia, unspecified E78.00 Active 577064259 Problem 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 Active 722667968 ALLERGIES No Information ENCOUNTERS Encounter Location Date Diagnosis [facility] [id number], [place] [address] Jan, [facility] [id number] [place] [address] Jan, 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 [facility] [id number], [place] [address] Dec, Type 2 diabetes mellitus with other circulatory complications E11.59 ; HTN (hypertension) I10 and Pure hypercholesterolemia, unspecified E78.00 [id number] [place] [address]140- 2886 27 Dec, 2017 Type 2 diabetes mellitus [...] GERD (gastroesophageal reflux disease) K21.9 [id number] [place] [address] 44742- 6055 13 Dec, 2017 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 [address] [id number] [place] [address] 85417- 9765 Dec, [address] [id number] [place] [address] 72450- 0781 Nov, 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 [facility] [id number] [place] [address] [id number] Oct, GERD (gastroesophageal reflux disease) K21.9 [address] [place] [address] 26492- 2993 Oct, HTN (hypertension) I10 ; GERD (gastroesophageal reflux disease) K21.9 and 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 [address] [address] [place] [address] 39510- 2409 Oct, [address] [address] Oct, [address] [id number] [place] [address] 93489- 8174 Sep, Type 2 diabetes mellitus with other circulatory complications E11.59 and 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 [facility] [address], [place] [address] Sep, Type 2 diabetes mellitus with other circulatory complications E11.59 [address] [place] [id number] [place] [address] 48814- 5340 Aug, [facility] [id number] [place] [address] 48758- 3485 Aug, Type 2 diabetes mellitus with other circulatory complications E11.59 ; HTN (hypertension) I10 ; GERD (gastroesophageal reflux disease) K21.9 ; Neuropathy G62.9 ; 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 ; Encounter for tobacco use cessation counseling Z71.6 and BMI 40.0-44.9, adult Z68.41 [address] [id number] [place] [address] 71107- 4229 Aug, [address] [place] [id number] [place] [address] 78297- 8720 Aug, 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 [address] [id number] [place] [address] 40849- 5438 Aug, Type 2 diabetes mellitus with other circulatory complications E11.59 [address] [address] [place] [address] 56475- 5456 Aug, [address] [id number] [place] [address] 43437- 5286 Aug, [address] [place] [id number] [place] [address] 34851- 9530 Jul, Encounter for immunization Z23 ; Type 2 diabetes mellitus with other circulatory complications E11.59 ; GERD (gastroesophageal reflux disease) K21.9 and Neuropathy G62.9 [facility] [address] [place] [address] 22373- 9931 Jul, 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 [address] [place] [id number] [place] [address] 72657- 0768 Jul, [facility] [address], [place] [address] Jun, 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 [facility] [id number] [place] [address] 879237- 0604 Jun, 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 [facility] [id number] [place] [address] 34905- 4363 May, 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 [facility] [id number] [place] [address] 00002- 9926 Apr, [address] [place] [id number] [place] [address] 00567- 4018 Apr, Unspecified open wound, right knee, initial encounter S81.001A [facility] [id number] [place] [address] 45000- 8936 Apr, Unspecified open wound, right knee, initial encounter S81.001A [facility] [id number] [place] [address] 84798- 4496 Apr, Type 2 diabetes mellitus with other circulatory complications E11.59 ; HTN (hypertension) I10 ; GERD (gastroesophageal reflux disease) K21.9 ; Emphysema lung J43.9 ; Primary insomnia F51.01 ; Unspecified open wound, right knee, initial encounter S81.001A ; Pure hypercholesterolemia, unspecified E78.00 ; Neuropathy G62.9 and 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 [facility] [address] [place] [address] 76804- 1745 Apr, Neuropathy G62.9 [facility] [id number] [place] [address] 80732- 9943 March, Neuropathy G62.9 [facility] [id number] [place] [address] 81549- 0957 March, [facility] [id number] [place] [address] 92065- 0527 Feb, Neuropathy G62.9 [address] [place] [address] [address]- [address] 14 Jan, 2017 Type 2 diabetes mellitus with other circulatory complications E11.59 ; HTN (hypertension) I10 ; GERD (gastroesophageal reflux disease) K21.9 ; Neuropathy G62.9 ; Emphysema lung J43.9 ; Hypercholesterolemia E78.0 ; Primary insomnia F51.01 and Unspecified open wound, right knee, initial encounter S81.001A [address] [address] 60[address]- 5448 14 Dec, 2016 Type 2 diabetes mellitus with other circulatory complications E11.59 ; Neuropathy G62.9 ; 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 ; HTN (hypertension) I10 ; GERD (gastroesophageal reflux disease) K21.9 ; Hypercholesterolemia E78.0 ; Emphysema lung J43.9 and Dysuria R30.0 [address] [place] [id number] [place] [address] 20015- 0841 Nov, [address] [id number] [place] [address] 33596- 2745 Nov, 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 [address] [id number] [place] [address] 59570- 4519 Nov, [address] [id number] [place] [address] 99197- 4612 Nov, [address] [id number] [place] [address] 43027- 3496 Nov, Type 2 diabetes mellitus with other circulatory complications E11.59 ; HTN (hypertension) I10 ; Neuropathy G62.9 ; Emphysema lung J43.9 ; 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 ; Hypercholesterolemia E78.0 ; GERD (gastroesophageal reflux disease) K21.9 ; Unspecified open wound, right knee, initial encounter S81.001A and Primary insomnia F51.01 [address] [address] 96[address]- [address] Oct, [facility] [address], [place] [address] Oct, [facility] [address] [place] [address] 632476- 5343 Oct, [facility] [id number] [place] [address] 32600- 7645 Sep, [address] [id number] [place] [address] 78287- 3034 Aug, [facility] [address] [place] [address] 45885- 7811 Jul, Type 2 diabetes mellitus with other circulatory complications E11.59 ; HTN (hypertension) I10 ; Neuropathy G62.9 ; Emphysema lung J43.9 ; 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 ; Hypercholesterolemia E78.0 and Gastroesophageal reflux disease without esophagitis K21.9 [address] [place] [address] 85721- 5274 Jun, [address] [place] [id number] [place] [address] 34807- 4902 Jun, [address] [id number] [place] [address] 40573- 2791 May, [address] [place] [address] 73452- 7676 May, Type 2 diabetes mellitus with other circulatory complications E11.59 ; HTN (hypertension) I10 ; GERD (gastroesophageal reflux disease) K21.9 ; Neuropathy G62.9 ; Emphysema lung J43.9 and Hypercholesterolemia E78.0 [address] [place] [id number] [place] [address] 09004- 7282 Apr, Neuropathy G62.9 and Type 2 diabetes mellitus with other circulatory complications E11.59 [address] [place] [address] [place] [address] 42422- 9449 Apr, Neuropathy G62.9 [address] [address] [place] [address] 42028- 5231 March, Type 2 diabetes mellitus with other circulatory complications E11.59 ; HTN (hypertension) I10 ; Neuropathy G62.9 ; Emphysema lung J43.9 ; 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 ; Hypercholesterolemia E78.0 and Gastroesophageal reflux disease with esophagitis K21.0 [facility] [id number] [place] [address] 27115- 6136 Feb, [facility] [id number] [place] [address] 83421- 7736 Feb, [facility] [address] 84225- 6858 Jan, [facility] [address] 09716- 8271 Jan, Type 2 diabetes mellitus with other circulatory complications E11.59 ; HTN (hypertension) I10 ; GERD (gastroesophageal reflux disease) K21.9 ; Neuropathy G62.9 ; Emphysema lung J43.9 ; 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 and Hypercholesterolemia E78.0 [facility] [id number] [place] [address] 20824- 2572 Jan, [facility] [id number] [place] [address] [phone] Dec, Dental examination Z01.20 and Dental caries K02.9 IMMUNIZATIONS No Known Immunizations SOCIAL HISTORY Never Assessed REASON FOR VISIT Lab orders from wound care PLAN OF CARE VITAL SIGNS MEDICATIONS Unknown [...]
--- OUTSIDE RECORDS SUMMARY | 2018-03-05 21:24 | XMS REPORT ---
Author SYBIL Keller [facility] eClinicalWorks Address Unknown Phone Unavailable Care Team Providers Care Human Performance Technologist Name Role Phone SYBIL NEW CP Unavailable [...] Start Date End Date Status Dosage Hydrocodone-Acetaminophen [facility] [address]-53 10-325 MG Orally 3 times a day 1 tablet as needed Results No Known Results Summary Purpose eClinicalWorks Submission
--- OUTSIDE RECORDS SUMMARY | 2018-03-05 21:24 | XMS REPORT ---
Author SYBIL Keller [facility] eClinicalWorks Address Unknown Phone Unavailable Care Team Providers Care Fabrics And Material Cutter Name Role Phone SYBIL NEW CP Unavailable [...] Instructions Start Date End Date Status Dosage Lantus SoloStar [facility] [address]-82 100 UNIT/ML Subcutaneous Once a day February 17, 2016 90 units Proventil HFA [facility] [address]-06 108 (90 Base) MCG/ACT Inhalation every 4 hrs February 17, 2016 2 puffs as needed Hydrocodone-Acetaminophen [facility] [address]-56 10-325 MG Orally 3 times a day 1 tablet as needed Humalog KwikPen [facility] [address]-37 100 UNIT/ML Subcutaneous 3 times a day February 17, 2016 30 units Losartan Potassium [facility] [address]-80 50 mg Orally Once a day February 17, 2016 1 tablet Advocate Insulin Pen [place] [facility] 98[address]-38755 29G X 12.7MM subcutaneously as directed Jun 26, 2016 as directed Results No Known Results Summary Purpose eClinicalWorks Submission
--- OUTSIDE RECORDS SUMMARY | 2018-03-05 21:25 | XMS REPORT | Continuity of Care Document ---
Author Author [facility] Organization [facility] Address Unknown Phone Unavailable Allergies Active Description Code Type Severity Reaction Onset Reported/Identified Relationship to Patient Clinical Status Yes No Known Drug Allergies [id number] Drug Allergy Unknown N/A 10/19/2012 Yes pregabalin [id number] Drug Allergy Severe FEVER 04/26/2015 Medications There is no data. Problems Date Dx Coded Attending Type Code Diagnosis Diagnosed By 10/18/1599 DAGO MARIEE MD, Ot E11.621 TYPE 2 DIABETES MELLITUS WITH FOOT ULCER 10/18/1599 DAGO MARIEE MD, Ot E11.622 TYPE 2 DIABETES MELLITUS WITH OTHER SKIN 10/18/1599 DAGO MARIEE MD Ot E66.01 MORBID (SEVERE) OBESITY DUE TO EXCESS CA 10/18/1599 DAGO MARIEE MD Ot L97.212 NON-PRESSURE CHRONIC ULCER OF RIGHT CALF 10/18/1599 DAGO MARIEE MD Ot L97.522 NON-PRS CHRONIC ULCER OTH PRT LEFT FOOT 10/18/1599 DAGO MARIEE MD Ot T87.89 OTHER COMPLICATIONS OF AMPUTATION STUMP 10/18/1599 DAGO MARIEE MD Ot Z89.511 ACQUIRED ABSENCE OF RIGHT LEG BELOW KNEE 09/06/2010 Ot 730.27 OSTEOMYELITIS NOS-ANKLE 08/03/2011 Ot 250.00 DIAB JESÚS WO COMPL, TYPE II OR UNSPEC TY 08/03/2011 Ot 682.7 CELLULITIS OF FOOT 08/03/2011 Ot 729.5 PAIN IN LIMB 08/03/2011 Ot V58.67 LONG-TERM ( CURRENT) USE OF INSULIN 08/03/2011 Ot V58.69 OTH MED,LT, CURRENT USE 10/22/2012 Ot 250.02 DIAB JESÚS WO COMPL, TYPE II OR UNSPEC TY 10/22/2012 Ot 278.01 MORBID OBESITY 10/22/2012 Ot 300.00 ANXIETY STATE NOS 10/22/2012 Ot 305.1 TOBACCO USE DISORDER 10/22/2012 Ot 311 DEPRESSIVE DISORDER NEC 10/22/2012 Ot 401.9 HYPERTENSION NOS 10/22/2012 Ot 463 ACUTE TONSILLITIS 10/22/2012 Ot 682.5 CELLULITIS OF BUTTOCK 10/22/2012 Ot V04.81 ND FOR PROPHYLACTIC VACCIN AND INOCULATI 10/22/2012 Ot V58.67 LONG-TERM ( CURRENT) USE OF INSULIN 10/22/2012 Ot V85.41 BODY MASS INDEX 40.0-44.9, ADULT 04/26/2015 Ot 730.27 04/26/2015 ADA DAMON MD Ot 424.0 04/26/2015 ADA DAMON MD Ot 786.50 04/26/2015 DONTRELL ALLEN, SHANDA Redman Ot 786.05 04/26/2015 DONTRELL ALLEN, SHANDA Redman Ot 789.00 04/26/2015 DONTRELL ALLEN, SHANDA Redman Ot 173.61 04/26/2015 DONTRELL ALLEN, SHANDA Redman Ot 241.0 04/26/2015 DONTRELL ALLEN, SHANDA E Ot 250.63 04/26/2015 DONTRELL ALLEN, SHANDA E Ot 268.2 04/26/2015 DONTRELL ALLEN, SHANDA E Ot 272.4 04/26/2015 DONTRELL ALLEN, SHANDA E Ot 275.2 04/26/2015 DONTRELL ALLEN, SHANDA E Ot 305.1 04/26/2015 DONTRELL ALLEN, SHANDA E Ot 311 04/26/2015 DONTRELL ALLEN, SHANDA E Ot 337.1 04/26/2015 DONTRELL ALLEN, SHANDA E Ot 337.22 04/26/2015 DONTRELL ALLEN, SHANDA E Ot 338.4 04/26/2015 DONTRELL ALLEN, SHANDA E Ot 401.9 04/26/2015 DONTRELL ALLEN, SHANDA E Ot 493.20 04/26/2015 DONTRELL ALLEN, SHANDA E Ot 530.11 04/26/2015 DONTRELL ALLEN, SHANDA E Ot 702.0 04/26/2015 DONTRELL ALLEN, SHANDA E Ot 715.90 04/26/2015 DONTRELL ALLEN, SHANDA Redman Ot 724.03 04/26/2015 DONTRELL ALLEN, SHANDA Redman Ot 729.5 04/26/2015 DONTRELL ALLEN, SHANDA Redman Ot 788.41 04/26/2015 DONTRELL ALLEN, SHANDA Redman Ot 789.00 04/26/2015 DONTRELL ALLEN, SHANDA Redman Ot V17.1 04/26/2015 DONTRELL ALLEN, SHANDA Redman Ot V17.49 04/26/2015 DONTRELL ALLEN, SHANDA Redman Ot V18.0 04/26/2015 DONTRELL ALLEN, SHANDA Redman Ot V58.64 04/26/2015 DONTRELL ALLEN, SHANDA Redman Ot V58.66 04/26/2015 DONTRELL ALLEN, SHANDA Redman Ot V58.67 04/26/2015 DONTRELL ALLEN, SHANDA Redman Ot V58.69 04/26/2015 Ot 730.27 04/28/2015 SANTANA DO, SARAHY Ot 038.9 04/28/2015 SANTANA DO, SARAHY Ot 250.60 04/28/2015 SANTANA DO, SARAHY Ot 272.0 04/28/2015 SANTANA DO, SARAHY Ot 272.4 04/28/2015 SANTANA DO, SARAHY Ot 276.8 04/28/2015 SANTANA DO, SARAHY Ot 278.01 04/28/2015 SANTANA DO, SARAHY Ot 305.1 04/28/2015 SANTANA DO, SARAHY Ot 305.20 04/28/2015 SANTANA DO, SARAHY Ot 327.23 04/28/2015 SANTANA DO, SARAHY Ot 357.2 04/28/2015 SATNANA DO, SARAHY Ot 401.9 04/28/2015 SANTANA DO, SARAHY Ot 414.01 04/28/2015 SANTANA DO, SARAHY Ot 443.9 04/28/2015 SANTANA DO, SARAHY Ot 496 04/28/2015 SANTANA DO, SARAHY Ot 530.81 04/28/2015 SANTANA DO, SARAHY Ot 682.7 04/28/2015 SANTANA DO, SARAHY Ot 892.0 04/28/2015 SANTANA DO, SARAHY Ot 995.91 04/28/2015 SANTANA DO, SARAHY Ot E000.8 04/28/2015 SANTANA DO, SARAHY Ot E849.4 04/28/2015 SANTANA DO, SARAHY Ot E928.9 04/28/2015 SANTANA DO, SARAHY Ot V49.75 04/28/2015 SANTANA DO, SARAHY Ot V58.67 04/28/2015 SANTANA DO, SARAHY Ot V85.41 04/29/2015 SANTANA DO, SARAHY Ot 038.9 SEPTICEMIA NOS 04/29/2015 SANTANA DO, SARAHY Ot 250.60 DIAB W NEURO MANIFEST, TYPE II OR UNSPEC 04/29/2015 MAX ELDRIDGE SARAHY Ot 272.0 PURE HYPERCHOLESTEROLEM 04/29/2015 MAX ELDRIDGE SARAHY Ot 272.4 HYPERLIPIDEMIA NEC/NOS 04/29/2015 MAX ELDRIDGE SARAHY Ot 276.8 HYPOPOTASSEMIA 04/29/2015 MAX ELDRIDGE SARAHY Ot 278.01 MORBID OBESITY 04/29/2015 MAX ELDRIDGE SARAHY Ot 305.1 TOBACCO USE DISORDER 04/29/2015 MAX ELDRIDGE SARAHY Ot 305.20 CANNABIS ABUSE-UNSPEC 04/29/2015 MAX ELDRIDGE SARAHY Ot 327.23 OBSTRUCTIVE SLEEP APNEA (ADULT) (PEDIATR 04/29/2015 MAX ELDRIDGE SARAHY Ot 357.2 NEUROPATHY IN DIABETES 04/29/2015 MAX ELDRIDGE SARAHY Ot 401.9 HYPERTENSION NOS 04/29/2015 MAX ELDRIDGE SARAHY Ot 414.01 CORONARY ATHEROSCLEROSIS OF [place] CORON 04/29/2015 MAX ELDRIDGE SARAHY Ot 443.9 PERIPH VASCULAR DIS NOS 04/29/2015 MAX ELDRIDGE SARAHY Ot 496 CHR AIRWAY OBSTRUCT NEC 04/29/2015 MAX ELDRIDGE SARAHY Ot 530.81 ESOPHAGEAL REFLUX 04/29/2015 MAX ELDRIDGE SARAHY Ot 682.7 CELLULITIS OF FOOT 04/29/2015 MAX ELDRIDGE SARAHY Ot 730.27 OSTEOMYELITIS NOS-ANKLE 04/29/2015 MAX ELDRIDGE SARHAY Ot 892.0 OPEN WOUND OF FOOT 04/29/2015 MAX ELDRIDGE SARAHY Ot 995.91 SEPSIS 04/29/2015 MAX ELDRIDGE SARAHY Ot E000.8 OTHER EXTERNAL CAUSE STATUS 04/29/2015 SARAHY SANTANA DO Ot E849.4 ACCID IN RECREATION AREA 04/29/2015 MAX ELDRIDGE SARAHY Ot E928.9 ACCIDENT NOS 04/29/2015 MAX ELDRIDGE SARAHY Ot V49.75 BELOW KNEE AMPUTATION STATUS 04/29/2015 MAX ELDRIDGE SARAHY Ot V58.67 LONG-TERM (CURRENT) USE OF INSULIN 04/29/2015 MAX ELDRIDGE SARAHY Ot V85.41 BODY MASS INDEX 40.0-44.9, ADULT 11/05/2015 Ot 730.27 11/05/2015 MARISOL ALLEN, ADA Navarro Ot 424.0 11/05/2015 ADA DAMON MD Ot 786.50 11/05/2015 DONTRELL ALLEN, SHANDA Redman Ot 786.05 11/05/2015 DONTRELL ALLEN, SHANDA E Ot 789.00 11/05/2015 DONTRELL ALLEN, SHANDA E Ot 173.61 11/05/2015 DONTRELL ALLEN, SHANDA E Ot 241.0 11/05/2015 DONTRELL ALLEN, SHANDA E Ot 250.63 11/05/2015 DONTRELL ALLEN, SHANDA E Ot 268.2 11/05/2015 DONTRELL ALLEN, SHANDA E Ot 272.4 11/05/2015 DONTRELL ALLEN, SHANDA E Ot 275.2 11/05/2015 DONTRELL ALLEN, SHANDA E Ot 305.1 11/05/2015 DONTRELL ALLEN, SHANDA E Ot 311 11/05/2015 DONTRELL ALLEN, SHANDA E Ot 337.1 11/05/2015 DONTRELL ALLEN, SHANDA E Ot 337.22 11/05/2015 DONTRELL ALLEN, SHANDA E Ot 338.4 11/05/2015 DONTRELL ALLEN, SHANDA E Ot 401.9 11/05/2015 DONTRELL ALLEN, SHANDA E Ot 493.20 11/05/2015 DONTRELL ALLEN, SHANDA E Ot 530.11 11/05/2015 DONTRELL ALLEN, SHANDA E Ot 702.0 11/05/2015 DONTRELL ALLEN, SHANDA E Ot 715.90 11/05/2015 DONTRELL ALLEN, SHANDA Redman Ot 724.03 11/05/2015 DONTRELL ALLEN, SHANDA E Ot 729.5 11/05/2015 DONTRELL ALLEN, SHANDA E Ot 788.41 11/05/2015 DONTRELL ALLEN, SHANDA E Ot 789.00 11/05/2015 DONTRELL ALLEN, SHANDA Redman Ot V17.1 11/05/2015 DONTRELL ALLEN, SHANDA Redman Ot V17.49 11/05/2015 DONTRELL ALLEN, SHANDA Redman Ot V18.0 11/05/2015 DONTRELL ALLEN, SHANDA Redman Ot V58.64 11/05/2015 DONTRELL ALLEN, SHANDA Redman Ot V58.66 11/05/2015 DONTRELL ALLEN, SHANDA Redman Ot V58.67 11/05/2015 DONTRELL ALLEN, SHANDA Redman Ot V58.69 11/11/2015 GELLENDER DO, BRANDO Jean Ot E11.622 TYPE 2 DIABETES MELLITUS WITH OTHER SKIN 11/11/2015 GELLENDER DOBRANDO Ot E11.69 TYPE 2 DIABETES MELLITUS WITH OTHER SPEC 11/11/2015 GELLENDER DO, BRANDO A Ot E66.01 MORBID (SEVERE) OBESITY DUE TO EXCESS CA 11/11/2015 BENI BRANDO ELDRIDGE Ot E78.0 PURE HYPERCHOLESTEROLEMIA 11/11/2015 RYANHARLEEN BRANDO ELDRIDGE Ot F17.210 NICOTINE DEPENDENCE, CIGARETTES, UNCOMPL 11/11/2015 BENI BRANDO ELDRIDGE Ot G47.33 OBSTRUCTIVE SLEEP APNEA (ADULT) (PEDIATR 11/11/2015 BENI ELDRIDGEBRANDO Ot G62.9 POLYNEUROPATHY, UNSPECIFIED 11/11/2015 [facility] ELDR[facility]GE Ot I10 ESSENTIAL (PRIMARY) HYPERTENSION 11/11/2015 [facility] Ot I25.10 ATHSCL HEART DISEASE OF [place] CORONARY 11/11/2015 [facility] Ot I70.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 [place] ARTERIES OF EXTREMITI 11/11/2015 [facility] Ot J44.9 CHRONIC OBSTRUCTIVE PULMONARY DISEASE, U 11/11/2015 BENI BRANDO ELDRIDGE Ot K21.9 GASTRO-ESOPHAGEAL REFLUX DISEASE WITHOUT 11/11/2015 BENI ELDRIDGEBRANDO Ot K44.9 DIAPHRAGMATIC HERNIA WITHOUT OBSTRUCTION 11/11/2015 BENI BRANDO ELDRIDGE Ot L03.116 CELLULITIS OF LEFT LOWER LIMB 11/11/2015 BENI BRANDO ELDRIDGE Ot L97.523 NON-PRS CHRONIC ULCER OTH PRT LEFT FOOT 11/11/2015 BENI BRANDO ELDRIDGE Ot M86.672 OTHER CHRONIC OSTEOMYELITIS, LEFT ANKLE 11/11/2015 [facility] BRANDO ELDRIDGE Ot T25.022S BURN OF UNSPECIFIED DEGREE OF LEFT FOOT, 11/11/2015 BENI BRANDO ELDRIDGE Ot X19.XXXS CONTACT WITH OTHER HEAT AND HOT SUBSTANC 11/11/2015 BENI BRANDO ELDRIDGE Ot Z68.42 BODY MASS INDEX (BMI) 45.0-49.9, ADULT 11/11/2015 [facility] BRANDO ELDRIDGE Ot Z79.4 MCC (CURRENT) USE OF INSULIN 11/11/2015 RYANHARLEEN BRANDO ELDRIDGE Ot Z89.411 ACQUIRED ABSENCE OF RIGHT GREAT TOE 11/11/2015 TI[facility]AS[facility]HAS BRANDO ELDRIDGE Ot Z89.511 ACQUIRED ABSENCE OF RIGHT LEG BELOW KNEE 11/25/2015 BRANDO BAZAN DO Ot B95.62 METHICILLIN RESIS STAPH INFCT CAUSING DI 11/25/2015 [facility] BRANDO Jean Ot E11.622 TYPE 2 DIABETES MELLITUS WITH OTHER SKIN 11/25/2015 [facility], BRANDO Jean Ot E11.69 TYPE 2 DIABETES MELLITUS WITH OTHER SPEC 11/25/2015 [facility] Jean Ot E66.01 MORBID (SEVERE) OBESITY DUE TO EXCESS CA 11/25/2015 BENI , BRANDO Jean Ot E78.0 PURE HYPERCHOLESTEROLEMIA 11/25/2015 [facility], BRANDO Jean Ot F17.210 NICOTINE DEPENDENCE, CIGARETTES, UNCOMPL 11/25/2015 [facility] BRANDO Jean Ot G47.33 OBSTRUCTIVE SLEEP APNEA (ADULT) (PEDIATR 11/25/2015 [facility] BRANDO Jaen Ot G62.9 POLYNEUROPATHY, UNSPECIFIED 11/25/2015 [facility], BRANDO Jean Ot I10 ESSENTIAL (PRIMARY) HYPERTENSION 11/25/2015 [facility], BRANDO Jean Ot I25.10 ATHSCL HEART DISEASE OF [place] CORONARY 11/25/2015 [facility] Ot I70.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 [place] ARTERIES OF EXTREMITI 11/25/2015 [facility] Ot J44.9 CHRONIC OBSTRUCTIVE PULMONARY DISEASE, U 11/25/2015 [facility] Ot K21.9 GASTRO-ESOPHAGEAL REFLUX DISEASE WITHOUT 11/25/2015 [facility] Ot K44.9 DIAPHRAGMATIC HERNIA WITHOUT OBSTRUCTION 11/25/2015 [facility] Ot L03.116 CELLULITIS OF LEFT LOWER LIMB 11/25/2015 [facility] Ot L97.523 NON-PRS CHRONIC ULCER OTH PRT LEFT FOOT 11/25/2015 [facility] Ot M86.672 OTHER CHRONIC OSTEOMYELITIS, LEFT ANKLE 11/25/2015 [facility] Ot T25.022S BURN OF UNSPECIFIED DEGREE OF LEFT FOOT, 11/25/2015 [facility]YAN[facility]LE[facility] ELDRIDGEBRANDO Ot T81.31XA DISRUPTION OF EXTERNAL OPERATION (SURGIC 11/25/2015 BENI ELDRIDGEBRANDO Ot X19.XXXS CONTACT WITH OTHER HEAT AND HOT SUBSTANC 11/25/2015 BENI ELDRIDGEBRANDO Ot Z68.42 BODY MASS INDEX (BMI) 45.0-49.9, ADULT 11/25/2015 BRANDO BAZAN DO Ot Z79.4 DIRECTOR FOOD AND BEVERAGE (CURRENT) USE OF INSULIN 11/25/2015 BRANDO BAZAN DO Ot Z89.411 ACQUIRED ABSENCE OF RIGHT GREAT TOE 11/25/2015 BRANDO BAZAN DO Ot Z89.511 ACQUIRED ABSENCE OF RIGHT LEG BELOW KNEE 12/31/2015 BUZZ DPM, LAURA Q Ot M86.9 11/21/2016 ADA DAMON MD Ot 424.0 MITRAL VALVE DISORDER 11/21/2016 ADA DAMON MD Ot 786.50 CHEST PAIN NOS 11/21/2016 SHANDA JON MD Ot 786.05 SHORTNESS OF BREATH 11/21/2016 SHANDA JON MD Ot 789.00 ABDOMINAL PAIN, UNSPECIFIED SITE 11/21/2016 SHANDA JON MD Ot 173.61 BASAL CELL CARCINOMA OF SKIN OF UPPER LI 11/21/2016 SHANDA JON MD Ot 241.0 NONTOX UNINODULAR GOITER 11/21/2016 SHANDA JON MD Ot 250.63 DIAB W NEURO MANIFEST, TYPE I [JUVENILE 11/21/2016 SAHNDA JON MD Ot 268.2 OSTEOMALACIA NOS 11/21/2016 SHANDA JON MD Ot 272.4 HYPERLIPIDEMIA NEC/NOS 11/21/2016 SHANDA JON MD Ot 275.2 DIS MAGNESIUM METABOLISM 11/21/2016 SHANDA JON MD Ot 305.1 TOBACCO USE DISORDER 11/21/2016 SHANDA JON MD Ot 311 DEPRESSIVE DISORDER NEC 11/21/2016 SHANDA JON MD Ot 337.1 AUT NEUROPTHY IN OTH DIS 11/21/2016 SHANDA JON MD Ot 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 DYSTROPHY, LOWER LIMB 11/21/2016 SHANDA JON MD Ot 338.4 CHRONIC PAIN SYNDROME 11/21/2016 SHANDA JON MD Ot 401.9 HYPERTENSION NOS 11/21/2016 SHANDA JON MD Ot 493.20 CHRONIC OBSTRUCTIVE ASTHMA, NOS 11/21/2016 SHANDA JON MD Ot 530.11 REFLUX ESOPHAGITIS 11/21/2016 SHANDA JON MD Ot 702.0 ACTINIC KERATOSIS 11/21/2016 SHANDA JON MD Ot 715.90 OSTEOARTHROS NOS-UNSPEC 11/21/2016 SHANDA JON MD Ot 724.03 SPINAL STENOSIS, LUMBAR REGION, W NEUROG 11/21/2016 SHANDA JON MD Ot 729.5 PAIN IN LIMB 11/21/2016 SHANDA JON MD Ot 788.41 URINARY FREQUENCY 11/21/2016 SHANDA JON MD, Ot 789.00 ABDOMINAL PAIN, UNSPECIFIED SITE 11/21/2016 SHANDA JON MD, Ot V17.1 FAMILY HX-STROKE 11/21/2016 SHNADA JON MD, Ot V17.49 FAMILY HISTORY OF OTHER CARDIOVASCULAR D 11/21/2016 SHANDA JON MD, Ot V18.0 FAM HX-DIABETES MELLITUS 11/21/2016 SHANDA JON MD, Ot V58.64 LONG-TERM(CURRENT)USE OF NON-STEROIDAL A 11/21/2016 SHANDA JON MD, Ot V58.66 LONG-TERM (CURRENT) USE OF ASPIRIN 11/21/2016 SHANDA JON MD, Ot V58.67 LONG-TERM (CURRENT) USE OF INSULIN 11/21/2016 SHANDA JON MD, Ot V58.69 OT MED,LT,CURRENT USE 11/21/2016 BUZZ DPM, LAURA Selma Ot M86.9 OSTEOMYELITIS, UNSPECIFIED 11/24/2016 DAGO MARIEE MD Ot E11.621 TYPE 2 DIABETES MELLITUS WITH FOOT ULCER 11/24/2016 DAGO MARIEE MD, Ot E11.622 TYPE 2 DIABETES MELLITUS WITH OTHER SKIN 11/24/2016 DAGO MARIEE MD Ot E66.01 MORBID (SEVERE) OBESITY DUE TO EXCESS CA 11/24/2016 DAGO MARIEE MD Ot L97.212 NON-PRESSURE CHRONIC ULCER OF RIGHT CALF 11/24/2016 DAGO MARIEE MD Ot L97.522 NON-PRS CHRONIC ULCER OTH PRT LEFT FOOT 11/24/2016 DAGO MARIEE MD Ot T87.89 OTHER COMPLICATIONS OF AMPUTATION STUMP 11/24/2016 DAGO MARIEE MD Ot Z89.511 ACQUIRED ABSENCE OF RIGHT LEG BELOW KNEE 04/03/2017 ADA DAMON MD Ot 424.0 MITRAL VALVE DISORDER 04/03/2017 ADA DAMON MD Ot 786.50 CHEST PAIN NOS 04/03/2017 SHANDA JON MD Ot 786.05 SHORTNESS OF BREATH 04/03/2017 SHANDA JON MD, Ot 789.00 ABDOMINAL PAIN, UNSPECIFIED SITE 04/03/2017 SHANDA JON MD Ot 173.61 BASAL CELL CARCINOMA OF SKIN OF UPPER LI 04/03/2017 SHANDA JON MD Ot 241.0 NONTOX UNINODULAR GOITER 04/03/2017 SHANDA JON MD Ot 250.63 DIAB W NEURO MANIFEST, TYPE I [JUVENILE 04/03/2017 SHANDA JON MD Ot 268.2 OSTEOMALACIA NOS 04/03/2017 SHANDA JON MD Ot 272.4 HYPERLIPIDEMIA NEC/NOS 04/03/2017 SHANDA JON MD Ot 275.2 DIS MAGNESIUM METABOLISM 04/03/2017 SHANDA JON MD Ot 305.1 TOBACCO USE DISORDER 04/03/2017 SHANDA JON MD Ot 311 DEPRESSIVE DISORDER NEC 04/03/2017 SHANDA JON MD Ot 337.1 AUT NEUROPTHY IN OTH DIS 04/03/2017 SHANDA JON MD Ot 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 DYSTROPHY, LOWER LIMB 04/03/2017 SHANDA JON MD Ot 338.4 CHRONIC PAIN SYNDROME 04/03/2017 SHANDA JON MD Ot 401.9 HYPERTENSION NOS 04/03/2017 SHANDA JON MD Ot 493.20 CHRONIC OBSTRUCTIVE ASTHMA, NOS 04/03/2017 SHANDA JON MD Ot 530.11 REFLUX ESOPHAGITIS 04/03/2017 SHANDA JON MD Ot 702.0 ACTINIC KERATOSIS 04/03/2017 SHANDA JON MD Ot 715.90 OSTEOARTHROS NOS-UNSPEC 04/03/2017 SHANDA JON MD Ot 724.03 SPINAL STENOSIS, LUMBAR REGION, W NEUROG 04/03/2017 SHANDA JON MD Ot 729.5 PAIN IN LIMB 04/03/2017 SHANDA JON MD Ot 788.41 URINARY FREQUENCY 04/03/2017 SHANDA JON MD Ot 789.00 ABDOMINAL PAIN, UNSPECIFIED SITE 04/03/2017 SHANDA JON MD Ot V17.1 FAMILY HX-STROKE 04/03/2017 SHANDA JON MD Ot V17.49 FAMILY HISTORY OF OTHER CARDIOVASCULAR D 04/03/2017 SHANDA JON MD Ot V18.0 FAM HX-DIABETES MELLITUS 04/03/2017 SHANDA JON MD Ot V58.64 LONG-TERM(CURRENT)USE OF NON-STEROIDAL A 04/03/2017 SHANDA JON MD, Ot V58.66 LONG-TERM (CURRENT) USE OF ASPIRIN 04/03/2017 SHANDA JON MD, Ot V58.67 LONG-TERM (CURRENT) USE OF INSULIN 04/03/2017 SHANDA JON MD, Ot V58.69 OTH MED,LT,CURRENT USE 04/03/2017 BUZZ DPM, LAURA Q Ot M86.9 OSTEOMYELITIS, UNSPECIFIED 04/23/2017 ADA DAMON MD Ot 424.0 MITRAL VALVE DISORDER 04/23/2017 ADA DAMON MD Ot 786.50 CHEST PAIN NOS 04/23/2017 SHANDA JON MD Ot 786.05 SHORTNESS OF BREATH 04/23/2017 SHANDA JON MD Ot 789.00 ABDOMINAL PAIN, UNSPECIFIED SITE 04/23/2017 SHANDA JON MD Ot 173.61 BASAL CELL CARCINOMA OF SKIN OF UPPER LI 04/23/2017 SHANDA JON MD Ot 241.0 NONTOX UNINODULAR GOITER 04/23/2017 SHANDA JON MD Ot 250.63 DIAB W NEURO MANIFEST, TYPE I [JUVENILE 04/23/2017 SHANDA JON MD Ot 268.2 OSTEOMALACIA NOS 04/23/2017 SHANDA JON MD Ot 272.4 HYPERLIPIDEMIA NEC/NOS 04/23/2017 SHANDA JON MD Ot 275.2 DIS MAGNESIUM METABOLISM 04/23/2017 SHANDA JON MD Ot 305.1 TOBACCO USE DISORDER 04/23/2017 SHANDA JON MD Ot 311 DEPRESSIVE DISORDER NEC 04/23/2017 SHANDA JON MD Ot 337.1 AUT NEUROPTHY IN OTH DIS 04/23/2017 SHANDA JON MD Ot 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 DYSTROPHY, LOWER LIMB 04/23/2017 SHANDA JON MD Ot 338.4 CHRONIC PAIN SYNDROME 04/23/2017 SHANDA JON MD Ot 401.9 HYPERTENSION NOS 04/23/2017 SHANDA JON MD Ot 493.20 CHRONIC OBSTRUCTIVE ASTHMA, NOS 04/23/2017 SHANDA JON MD Ot 530.11 REFLUX ESOPHAGITIS 04/23/2017 SHANDA JON MD Ot 702.0 ACTINIC KERATOSIS 04/23/2017 SHANDA JON MD Ot 715.90 OSTEOARTHROS NOS-UNSPEC 04/23/2017 SHANDA JON MD Ot 724.03 SPINAL STENOSIS, LUMBAR REGION, W NEUROG 04/23/2017 SHANDA JON MD, Ot 729.5 PAIN IN LIMB 04/23/2017 SHANDA JON MD, Ot 788.41 URINARY FREQUENCY 04/23/2017 SHANDA JON MD, Ot 789.00 ABDOMINAL PAIN, UNSPECIFIED SITE 04/23/2017 SHANDA JON MD, Ot V17.1 FAMILY HX-STROKE 04/23/2017 SHANDA JON MD, Ot V17.49 FAMILY HISTORY OF OTHER CARDIOVASCULAR D 04/23/2017 SHANDA JON MD, Ot V18.0 FAM HX-DIABETES MELLITUS 04/23/2017 SHANDA JON MD, Ot V58.64 LONG-TERM(CURRENT)USE OF NON-STEROIDAL A 04/23/2017 SHANDA JON MD, Ot V58.66 LONG-TERM (CURRENT) USE OF ASPIRIN 04/23/2017 SHANDA JON MD, Ot V58.67 LONG-TERM (CURRENT) USE OF INSULIN 04/23/2017 SHANDA JON MD, Ot V58.69 OTH MED,LT,CURRENT USE 04/23/2017 BUZZ DPM, LAURA Selma Ot M86.9 OSTEOMYELITIS, UNSPECIFIED 04/27/2017 SHANDA WEI MD Ot E11.622 TYPE 2 DIABETES MELLITUS WITH OTHER SKIN 04/27/2017 SHANDA WEI MD, Ot E66.01 MORBID (SEVERE) OBESITY DUE TO EXCESS CA 04/27/2017 SHANDA WEI MD, Ot L97.112 NON-PRS CHRONIC ULCER OF RIGHT THIGH W F 04/27/2017 SHANDA WEI MD, Ot T65.222S TOXIC EFFECT OF TOBACCO CIGARETTES, SELF 04/27/2017 SHANDA WEI MD Ot T87.89 OTHER COMPLICATIONS OF AMPUTATION STUMP 04/27/2017 SHANDA WEI MD, Ot Z89.511 ACQUIRED ABSENCE OF RIGHT LEG BELOW KNEE 05/04/2017 SHANDA WEI MD, Ot E11.622 TYPE 2 DIABETES MELLITUS WITH OTHER SKIN 05/04/2017 SHANDA WEI MD Ot E66.01 MORBID (SEVERE) OBESITY DUE TO EXCESS CA 05/04/2017 SHANDA WEI MD Ot L97.112 NON-PRS CHRONIC ULCER OF RIGHT THIGH W F 05/04/2017 SHANDA WEI MD, Ot T65.222S TOXIC EFFECT OF TOBACCO CIGARETTES, SELF 05/04/2017 SHANDA WEI MD Ot T87.89 OTHER COMPLICATIONS OF AMPUTATION STUMP 05/04/2017 SANJUANA ALLEN, SHANDA Boyle Ot Z89.511 ACQUIRED ABSENCE OF RIGHT LEG BELOW KNEE 05/04/2017 ADA DAMON MD Ot 424.0 MITRAL VALVE DISORDER 05/04/2017 ADA DAMON MD Ot 786.50 CHEST PAIN NOS 05/04/2017 SHANDA JON MD Ot 786.05 SHORTNESS OF BREATH 05/04/2017 SHANDA JON MD Ot 789.00 ABDOMINAL PAIN, UNSPECIFIED SITE 05/04/2017 SHANDA JON MD Ot 173.61 BASAL CELL CARCINOMA OF SKIN OF UPPER LI 05/04/2017 SHANDA JON MD Ot 241.0 NONTOX UNINODULAR GOITER 05/04/2017 SHANDA JON MD Ot 250.63 DIAB W NEURO MANIFEST, TYPE I [JUVENILE 05/04/2017 SHANDA JON MD Ot 268.2 OSTEOMALACIA NOS 05/04/2017 SHANDA JON MD Ot 272.4 HYPERLIPIDEMIA NEC/NOS 05/04/2017 SHANDA JON MD Ot 275.2 DIS MAGNESIUM METABOLISM 05/04/2017 SHANDA JON MD Ot 305.1 TOBACCO USE DISORDER 05/04/2017 SHANDA JON MD Ot 311 DEPRESSIVE DISORDER NEC 05/04/2017 SHANDA JON MD Ot 337.1 AUT NEUROPTHY IN OTH DIS 05/04/2017 SHANDA JON MD Ot 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 DYSTROPHY, LOWER LIMB 05/04/2017 SHANDA JON MD Ot 338.4 CHRONIC PAIN SYNDROME 05/04/2017 SHANDA JON MD Ot 401.9 HYPERTENSION NOS 05/04/2017 SHANDA JON MD Ot 493.20 CHRONIC OBSTRUCTIVE ASTHMA, NOS 05/04/2017 SHANDA JON MD Ot 530.11 REFLUX ESOPHAGITIS 05/04/2017 SHANDA JON MD Ot 702.0 ACTINIC KERATOSIS 05/04/2017 SHANDA JON MD Ot 715.90 OSTEOARTHROS NOS-UNSPEC 05/04/2017 SHANDA JON MD Ot 724.03 SPINAL STENOSIS, LUMBAR REGION, W NEUROG 05/04/2017 SHANDA JON MD Ot 729.5 PAIN IN LIMB 05/04/2017 SHANDA JNO MD Ot 788.41 URINARY FREQUENCY 05/04/2017 SHANDA JON MD Ot 789.00 ABDOMINAL PAIN, UNSPECIFIED SITE 05/04/2017 SHANDA JON MD, Ot V17.1 FAMILY HX-STROKE 05/04/2017 SHANDA JON MD, Ot V17.49 FAMILY HISTORY OF OTHER CARDIOVASCULAR D 05/04/2017 SHANDA JON MD, Ot V18.0 FAM HX-DIABETES MELLITUS 05/04/2017 SHANDA JON MD, Ot V58.64 LONG-TERM(CURRENT)USE OF NON-STEROIDAL A 05/04/2017 SHANDA JON MD, Ot V58.66 LONG-TERM (CURRENT) USE OF ASPIRIN 05/04/2017 SHANDA OJN MD, Ot V58.67 LONG-TERM (CURRENT) USE OF INSULIN 05/04/2017 SHANDA JON MD, Ot V58.69 OTH MED,LT,CURRENT USE 05/04/2017 BUZZ DPM, LAURA Hahn Ot M86.9 OSTEOMYELITIS, UNSPECIFIED 05/04/2017 SHANDA WEI MD, Ot E11.622 TYPE 2 DIABETES MELLITUS WITH OTHER SKIN 05/04/2017 SHANDA WEI MD, Ot E66.01 MORBID (SEVERE) OBESITY DUE TO EXCESS CA 05/04/2017 SHANDA WEI MD, Ot L97.112 NON-PRS CHRONIC ULCER OF RIGHT THIGH W F 05/04/2017 SHANDA WEI MD, Ot T65.222S TOXIC EFFECT OF TOBACCO CIGARETTES, SELF 05/04/2017 SHANDA WEI MD, Ot T87.89 OTHER COMPLICATIONS OF AMPUTATION STUMP 05/04/2017 SHANDA WEI MD, Ot Z89.511 ACQUIRED ABSENCE OF RIGHT LEG BELOW KNEE 06/11/2017 SHANDA WEI MD, Ot E11.622 TYPE 2 DIABETES MELLITUS WITH OTHER SKIN 06/11/2017 SHANDA WEI MD, Ot E66.01 MORBID (SEVERE) OBESITY DUE TO EXCESS CA 06/11/2017 SHANDA WEI MD, Ot L97.112 NON-PRS CHRONIC ULCER OF RIGHT THIGH W F 06/11/2017 SHANDA WEI MD, Ot T65.222S TOXIC EFFECT OF TOBACCO CIGARETTES, SELF 06/11/2017 SHANDA WEI MD Ot T87.89 OTHER COMPLICATIONS OF AMPUTATION STUMP 06/11/2017 SHANDA WEI MD, Ot Z89.511 ACQUIRED ABSENCE OF RIGHT LEG BELOW KNEE 06/18/2017 SHANDA WEI MD Ot E11.622 TYPE 2 DIABETES MELLITUS WITH OTHER SKIN 06/18/2017 SHANDA WEI MD Ot E66.01 MORBID (SEVERE) OBESITY DUE TO EXCESS CA 06/18/2017 SHANDA WEI MD Ot L97.112 NON-PRS CHRONIC ULCER OF RIGHT THIGH W F 06/18/2017 SHANDA WEI MD, Ot T65.222S TOXIC EFFECT OF TOBACCO CIGARETTES, SELF 06/18/2017 SHANDA WEI MD, Ot T87.89 OTHER COMPLICATIONS OF AMPUTATION STUMP 06/18/2017 SHANDA WEI MD, Ot Z89.511 ACQUIRED ABSENCE OF RIGHT LEG BELOW KNEE 07/13/2017 SHANDA WEI MD, Ot E66.01 MORBID (SEVERE) OBESITY DUE TO EXCESS CA 07/13/2017 SHANDA WEI MD, Ot T65.222S TOXIC EFFECT OF TOBACCO CIGARETTES, SELF 07/13/2017 SHANDA WEI MD, Ot T87.89 OTHER COMPLICATIONS OF AMPUTATION STUMP 07/13/2017 SHANDA WEI MD, Ot Z89.511 ACQUIRED ABSENCE OF RIGHT LEG BELOW KNEE 07/18/2017 SHANDA WEI MD Ot E11.621 TYPE 2 DIABETES MELLITUS WITH FOOT ULCER 07/18/2017 SHANDA WEI MD, Ot E66.01 MORBID (SEVERE) OBESITY DUE TO EXCESS CA 07/18/2017 SHANDA WEI MD, Ot L97.112 NON-PRS CHRONIC ULCER OF RIGHT THIGH W F 07/18/2017 SHANDA WEI MD, Ot T65.222S TOXIC EFFECT OF TOBACCO CIGARETTES, SELF 07/18/2017 SHANDA WEI MD, Ot T87.89 OTHER COMPLICATIONS OF AMPUTATION STUMP 07/18/2017 SHANDA WEI MD, Ot Z89.511 ACQUIRED ABSENCE OF RIGHT LEG BELOW KNEE 07/25/2017 DOMINGO FLETCHER APRN Ot E11.622 TYPE 2 DIABETES MELLITUS WITH OTHER SKIN 07/25/2017 DOMINGO FLETCHER APRN Ot E66.01 MORBID (SEVERE) OBESITY DUE TO EXCESS CA 07/25/2017 DOMINGO FLETCHER APRN Ot L97.112 NON-PRS CHRONIC ULCER OF RIGHT THIGH W F 07/25/2017 DOMINGO FLETCHER APRN Ot T65.222S TOXIC EFFECT OF TOBACCO CIGARETTES, SELF 07/25/2017 DOMINGO FLETCHER APRN Ot T87.89 OTHER COMPLICATIONS OF AMPUTATION STUMP 07/25/2017 DOMINGO FLETCHER FLOOR SCRAPER Ot Z68.42 BODY MASS INDEX (BMI) 45.0-49.9, ADULT 07/25/2017 DOMINGO FLETCHER APRN Ot Z89.511 ACQUIRED ABSENCE OF RIGHT LEG BELOW KNEE 08/03/2017 SHANDA WEI MD Ot E66.01 MORBID (SEVERE) OBESITY DUE TO EXCESS CA 08/03/2017 SHANDA WEI MD Ot T65.222S TOXIC EFFECT OF TOBACCO CIGARETTES, SELF 08/03/2017 SHANDA WEI MD Ot T87.89 OTHER COMPLICATIONS OF AMPUTATION STUMP 08/03/2017 SHANDA WEI MD, Ot Z89.511 ACQUIRED ABSENCE OF RIGHT LEG BELOW KNEE 02/13/2018 KAREN LYNN JOSE Ot G47.10 HYPERSOMNIA, UNSPECIFIED 02/13/2018 ADA DAMON MD Ot 424.0 MITRAL VALVE DISORDER 02/13/2018 ADA DAMON MD Ot 786.50 CHEST PAIN NOS 02/13/2018 SHANDA JON MD Ot 786.05 SHORTNESS OF BREATH 02/13/2018 SHANDA JON MD Ot 789.00 ABDOMINAL PAIN, UNSPECIFIED SITE 02/13/2018 SHANDA WEI MD Ot E11.622 TYPE 2 DIABETES MELLITUS WITH OTHER SKIN 02/13/2018 SHANDA WEI MD Ot E66.01 MORBID (SEVERE) OBESITY DUE TO EXCESS CA 02/13/2018 SAHNDA WEI MD Ot L97.112 NON-PRS CHRONIC ULCER OF RIGHT THIGH W F 02/13/2018 SHANDA WEI MD Ot T65.222S TOXIC EFFECT OF TOBACCO CIGARETTES, SELF 02/13/2018 SHANDA WEI MD Ot T87.89 OTHER COMPLICATIONS OF AMPUTATION STUMP 02/13/2018 SHANDA WEI MD Ot Z68.42 BODY MASS INDEX (BMI) 45.0-49.9, ADULT 02/13/2018 SHANDA WEI MD Ot Z89.511 ACQUIRED ABSENCE OF RIGHT LEG BELOW KNEE 02/13/2018 SHANDA JON MD Ot 173.61 BASAL CELL CARCINOMA OF SKIN OF UPPER LI 02/13/2018 SHANDA JON MD Ot 241.0 NONTOX UNINODULAR GOITER 02/13/2018 SHANDA JON MD Ot 250.63 DIAB W NEURO MANIFEST, TYPE I [JUVENILE 02/13/2018 SHANDA JON MD Ot 268.2 OSTEOMALACIA NOS 02/13/2018 SHANDA JON MD Ot 272.4 HYPERLIPIDEMIA NEC/NOS 02/13/2018 SHANDA JON MD Ot 275.2 DIS MAGNESIUM METABOLISM 02/13/2018 SHANDA JON MD Ot 305.1 TOBACCO USE DISORDER 02/13/2018 SHANDA JON MD Ot 311 DEPRESSIVE DISORDER NEC 02/13/2018 SHANDA JON MD Ot 337.1 AUT NEUROPTHY IN OTH DIS 02/13/2018 SHANDA JON MD Ot 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 DYSTROPHY, LOWER LIMB 02/13/2018 SHANDA JON MD Ot 338.4 CHRONIC PAIN SYNDROME 02/13/2018 SHANDA JON MD Ot 401.9 HYPERTENSION NOS 02/13/2018 SHANDA JON MD Ot 493.20 CHRONIC OBSTRUCTIVE ASTHMA, NOS 02/13/2018 SHANDA JON MD Ot 530.11 REFLUX ESOPHAGITIS 02/13/2018 SHANDA JON MD Ot 702.0 ACTINIC KERATOSIS 02/13/2018 SHANDA JON MD Ot 715.90 OSTEOARTHROS NOS-UNSPEC 02/13/2018 SHANDA JON MD Ot 724.03 SPINAL STENOSIS, LUMBAR REGION, W NEUROG 02/13/2018 SHANDA JON MD Ot 729.5 PAIN IN LIMB 02/13/2018 SHANDA JON MD Ot 788.41 URINARY FREQUENCY 02/13/2018 SHANDA JON MD Ot 789.00 ABDOMINAL PAIN, UNSPECIFIED SITE 02/13/2018 SHANDA JON MD Ot V17.1 FAMILY HX-STROKE 02/13/2018 SHANDA JON MD Ot V17.49 FAMILY HISTORY OF OTHER CARDIOVASCULAR D 02/13/2018 SHANDA JON MD Ot V18.0 FAM HX-DIABETES MELLITUS 02/13/2018 SHANDA JON MD Ot V58.64 LONG-TERM(CURRENT)USE OF NON-STEROIDAL A 02/13/2018 SHANDA JON MD Ot V58.66 LONG-TERM (CURRENT) USE OF ASPIRIN 02/13/2018 SHANDA JON MD Ot V58.67 LONG-TERM (CURRENT) USE OF INSULIN 02/13/2018 SHANDA JON MD Ot V58.69 OTH MED,LT,CURRENT USE 02/13/2018 BUZZ DPM, LAURA Q Ot M86.9 OSTEOMYELITIS, UNSPECIFIED 02/13/2018 SHANDA WEI MD Ot E11.621 TYPE 2 DIABETES MELLITUS WITH FOOT ULCER 02/13/2018 SHANDA WEI MD Ot E66.01 MORBID (SEVERE) OBESITY DUE TO EXCESS CA 02/13/2018 SHANDA WEI MD Ot L97.112 NON-PRS CHRONIC ULCER OF RIGHT THIGH W F 02/13/2018 SHANDA WEI MD, Ot T65.222S TOXIC EFFECT OF TOBACCO CIGARETTES, SELF 02/13/2018 SHANDA WEI MD Ot T87.89 OTHER COMPLICATIONS OF AMPUTATION STUMP 02/13/2018 SHANDA WEI MD Ot Z89.511 ACQUIRED ABSENCE OF RIGHT LEG BELOW KNEE 02/13/2018 DOMINGO FLETCHER FLOOR SCRAPER Ot E11.622 TYPE 2 DIABETES MELLITUS WITH OTHER SKIN 02/13/2018 JUSTINEDOMINGO FLOOR SCRAPER Ot E66.01 MORBID (SEVERE) OBESITY DUE TO EXCESS CA 02/13/2018 JUSTINEDOMINGO R FLOOR SCRAPER Ot L97.112 NON-PRS CHRONIC ULCER OF RIGHT THIGH W F 02/13/2018 DOMINGO FLETCHER FLOOR SCRAPER Ot T65.222S TOXIC EFFECT OF TOBACCO CIGARETTES, SELF 02/13/2018 JUSTINEDOMINGO FLOOR SCRAPER Ot T87.89 OTHER COMPLICATIONS OF AMPUTATION STUMP 02/13/2018 DOMINGO FLETCHER FLOOR SCRAPER Ot Z68.42 BODY MASS INDEX (BMI) 45.0-49.9, ADULT 02/13/2018 JUSTINEDOMINGO FLOOR SCRAPER Ot Z89.511 ACQUIRED ABSENCE OF RIGHT LEG BELOW KNEE 02/13/2018 SHANDA WEI MD Ot E66.01 MORBID (SEVERE) OBESITY DUE TO EXCESS CA 02/13/2018 SHANDA WEI MD Ot T65.222S TOXIC EFFECT OF TOBACCO CIGARETTES, SELF 02/13/2018 SHANDA WEI MD Ot T87.89 OTHER COMPLICATIONS OF AMPUTATION STUMP 02/13/2018 SHANDA WEI MD Ot Z89.511 ACQUIRED ABSENCE OF RIGHT LEG BELOW KNEE 02/13/2018 KAREN LYNN R FLOOR SCRAPER Ot G47.10 HYPERSOMNIA, UNSPECIFIED 02/13/2018 ADA DAMON MD Ot 424.0 MITRAL VALVE DISORDER 02/13/2018 ADA DAMON MD Ot 786.50 CHEST PAIN NOS 02/13/2018 SHANDA JON MD Ot 786.05 SHORTNESS OF BREATH 02/13/2018 SHANDA JON MD Ot 789.00 ABDOMINAL PAIN, UNSPECIFIED SITE 02/13/2018 SHANDA JON MD Ot 173.61 BASAL CELL CARCINOMA OF SKIN OF UPPER LI 02/13/2018 SHANDA JON MD Ot 241.0 NONTOX UNINODULAR GOITER 02/13/2018 SHANDA JON MD Ot 250.63 DIAB W NEURO MANIFEST, TYPE I [JUVENILE 02/13/2018 SHANDA JON MD Ot 268.2 OSTEOMALACIA NOS 02/13/2018 SHANDA JON MD Ot 272.4 HYPERLIPIDEMIA NEC/NOS 02/13/2018 SHANDA JON MD Ot 275.2 DIS MAGNESIUM METABOLISM 02/13/2018 SHANDA JON MD Ot 305.1 TOBACCO USE DISORDER 02/13/2018 SHANDA JON MD Ot 311 DEPRESSIVE DISORDER NEC 02/13/2018 SHANDA JON MD Ot 337.1 AUT NEUROPTHY IN OTH DIS 02/13/2018 SHANDA JON MD Ot 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 DYSTROPHY, LOWER LIMB 02/13/2018 SHANDA JON MD Ot 338.4 CHRONIC PAIN SYNDROME 02/13/2018 SHANDA JON MD Ot 401.9 HYPERTENSION NOS 02/13/2018 SHANDA JON MD Ot 493.20 CHRONIC OBSTRUCTIVE ASTHMA, NOS 02/13/2018 SHANDA JON MD Ot 530.11 REFLUX ESOPHAGITIS 02/13/2018 SHANDA JON MD Ot 702.0 ACTINIC KERATOSIS 02/13/2018 SHANDA JON MD Ot 715.90 OSTEOARTHROS NOS-UNSPEC 02/13/2018 SHANDA JON MD Ot 724.03 SPINAL STENOSIS, LUMBAR REGION, W NEUROG 02/13/2018 SHANDA JON MD Ot 729.5 PAIN IN LIMB 02/13/2018 SHANDA JON MD Ot 788.41 URINARY FREQUENCY 02/13/2018 SHANDA JON MD Ot 789.00 ABDOMINAL PAIN, UNSPECIFIED SITE 02/13/2018 SHANDA JON MD Ot V17.1 FAMILY HX-STROKE 02/13/2018 SHANDA JON MD Ot V17.49 FAMILY HISTORY OF OTHER CARDIOVASCULAR D 02/13/2018 SHANDA JON MD Ot V18.0 FAM HX-DIABETES MELLITUS 02/13/2018 SHANDA JON MD Ot V58.64 LONG-TERM(CURRENT)USE OF NON-STEROIDAL A 02/13/2018 SHANDA JON MD Ot V58.66 LONG-TERM (CURRENT) USE OF ASPIRIN 02/13/2018 SHANDA JON MD Ot V58.67 LONG-TERM (CURRENT) USE OF INSULIN 02/13/2018 DONTRELL ALLEN, SHANDA Redman Ot V58.69 OTH MED,LT,CURRENT USE 02/13/2018 BUZZ DPM, LAURA Q Ot M86.9 OSTEOMYELITIS, UNSPECIFIED 02/13/2018 SHANDA WEI MD, Ot E11.622 TYPE 2 DIABETES MELLITUS WITH OTHER SKIN 02/13/2018 SHANDA WEI MD, Ot E66.01 MORBID (SEVERE) OBESITY DUE TO EXCESS CA 02/13/2018 SHANDA WEI MD, Ot L97.112 NON-PRS CHRONIC ULCER OF RIGHT THIGH W F 02/13/2018 SHANDA WEI MD, Ot T65.222S TOXIC EFFECT OF TOBACCO CIGARETTES, SELF 02/13/2018 SHANDA WEI MD, Ot T87.89 OTHER COMPLICATIONS OF AMPUTATION STUMP 02/13/2018 SHANDA WEI MD, Ot Z68.42 BODY MASS INDEX (BMI) 45.0-49.9, ADULT 02/13/2018 SHANDA WEI MD, Ot Z89.511 ACQUIRED ABSENCE OF RIGHT LEG BELOW KNEE 02/13/2018 SHANDA WEI MD, Ot E11.621 TYPE 2 DIABETES MELLITUS WITH FOOT ULCER 02/13/2018 SHANDA WEI MD, Ot E66.01 MORBID (SEVERE) OBESITY DUE TO EXCESS CA 02/13/2018 SHANDA WEI MD, Ot L97.112 NON-PRS CHRONIC ULCER OF RIGHT THIGH W F 02/13/2018 SHANDA WEI MD, Ot T65.222S TOXIC EFFECT OF TOBACCO CIGARETTES, SELF 02/13/2018 SHANDA WEI MD, Ot T87.89 OTHER COMPLICATIONS OF AMPUTATION STUMP 02/13/2018 SHANDA WEI MD, Ot Z89.511 ACQUIRED ABSENCE OF RIGHT LEG BELOW KNEE 02/13/2018 DOMINGO FLETCHER APRN Ot E11.622 TYPE 2 DIABETES MELLITUS WITH OTHER SKIN 02/13/2018 DOMIGNO FLETCHER APRN Ot E66.01 MORBID (SEVERE) OBESITY DUE TO EXCESS CA 02/13/2018 DOMINGO FLETCHER APRN Ot L97.112 NON-PRS CHRONIC ULCER OF RIGHT THIGH W F 02/13/2018 DOMINGO FLETCHER APRN Ot T65.222S TOXIC EFFECT OF TOBACCO CIGARETTES, SELF 02/13/2018 DOMINGO FLETCHER FLOOR SCRAPER Ot T87.89 OTHER COMPLICATIONS OF AMPUTATION STUMP 02/13/2018 DOMINGO FLETCHER APRN Ot Z68.42 BODY MASS INDEX (BMI) 45.0-49.9, ADULT 02/13/2018 DOMINGO FLETCHER R FLOOR SCRAPER Ot Z89.511 ACQUIRED ABSENCE OF RIGHT LEG BELOW KNEE 02/13/2018 SHANDA WEI MD Ot E66.01 MORBID (SEVERE) OBESITY DUE TO EXCESS CA 02/13/2018 SHANDA WEI MD Ot T65.222S TOXIC EFFECT OF TOBACCO CIGARETTES, SELF 02/13/2018 SHANDA WEI MD Ot T87.89 OTHER COMPLICATIONS OF AMPUTATION STUMP 02/13/2018 SHANDA WEI MD Ot Z89.511 ACQUIRED ABSENCE OF RIGHT LEG BELOW KNEE 02/13/2018 KAREN LYNN FLOOR SCRAPER Ot G47.10 HYPERSOMNIA, UNSPECIFIED 02/26/2018 KAREN LYNN FLOOR SCRAPER Ot G47.10 HYPERSOMNIA, UNSPECIFIED 02/26/2018 ADA DAMON MD Ot 424.0 MITRAL VALVE DISORDER 02/26/2018 ADA DAMON MD Ot 786.50 CHEST PAIN NOS 02/26/2018 SHANDA JON MD Ot 786.05 SHORTNESS OF BREATH 02/26/2018 SHANDA JON MD Ot 789.00 ABDOMINAL PAIN, UNSPECIFIED SITE 02/26/2018 SHANDA JON MD Ot 173.61 BASAL CELL CARCINOMA OF SKIN OF UPPER LI 02/26/2018 SHANDA JON MD Ot 241.0 NONTOX UNINODULAR GOITER 02/26/2018 SHANDA JON MD Ot 250.63 DIAB W NEURO MANIFEST, TYPE I [JUVENILE 02/26/2018 SHANDA JON MD Ot 268.2 OSTEOMALACIA NOS 02/26/2018 SHANDA JON MD Ot 272.4 HYPERLIPIDEMIA NEC/NOS 02/26/2018 SHANDA JON MD Ot 275.2 DIS MAGNESIUM METABOLISM 02/26/2018 SHANDA JON MD Ot 305.1 TOBACCO USE DISORDER 02/26/2018 SHANDA JON MD Ot 311 DEPRESSIVE DISORDER NEC 02/26/2018 SHANDA JON MD Ot 337.1 AUT NEUROPTHY IN OTH DIS 02/26/2018 SHANDA JON MD Ot 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 DYSTROPHY, LOWER LIMB 02/26/2018 SHANDA JON MD Ot 338.4 CHRONIC PAIN SYNDROME 02/26/2018 SHANDA JON MD Ot 401.9 HYPERTENSION NOS 02/26/2018 SHANDA JON MD Ot 493.20 CHRONIC OBSTRUCTIVE ASTHMA, NOS 02/26/2018 SHANDA JON MD Ot 530.11 REFLUX ESOPHAGITIS 02/26/2018 SHANDA JON MD Ot 702.0 ACTINIC KERATOSIS 02/26/2018 SHANDA JON MD, Ot 715.90 OSTEOARTHROS NOS-UNSPEC 02/26/2018 SHANDA JON MD Ot 724.03 SPINAL STENOSIS, LUMBAR REGION, W NEUROG 02/26/2018 SHANDA JON MD Ot 729.5 PAIN IN LIMB 02/26/2018 SHANDA JON MD Ot 788.41 URINARY FREQUENCY 02/26/2018 SHANDA JON MD, Ot 789.00 ABDOMINAL PAIN, UNSPECIFIED SITE 02/26/2018 SHANDA JON MD Ot V17.1 FAMILY HX-STROKE 02/26/2018 SHANDA JON MD, Ot V17.49 FAMILY HISTORY OF OTHER CARDIOVASCULAR D 02/26/2018 SHANDA JON MD Ot V18.0 FAM HX-DIABETES MELLITUS 02/26/2018 SHANDA JON MD Ot V58.64 LONG-TERM(CURRENT)USE OF NON-STEROIDAL A 02/26/2018 SHANDA JON MD, Ot V58.66 LONG-TERM (CURRENT) USE OF ASPIRIN 02/26/2018 SHNADA JON MD, Ot V58.67 LONG-TERM (CURRENT) USE OF INSULIN 02/26/2018 SHANDA JON MD, Ot V58.69 OTH MED,LT,CURRENT USE 02/26/2018 BUZZ DPM, LAURA Q Ot M86.9 OSTEOMYELITIS, UNSPECIFIED 02/26/2018 SHANDA WEI MD Ot E11.622 TYPE 2 DIABETES MELLITUS WITH OTHER SKIN 02/26/2018 SHANDA WEI MD Ot E66.01 MORBID (SEVERE) OBESITY DUE TO EXCESS CA 02/26/2018 SHANDA WEI MD Ot L97.112 NON-PRS CHRONIC ULCER OF RIGHT THIGH W F 02/26/2018 SHANDA WEI MD Ot T65.222S TOXIC EFFECT OF TOBACCO CIGARETTES, SELF 02/26/2018 SHANDA WEI MD, Ot T87.89 OTHER COMPLICATIONS OF AMPUTATION STUMP 02/26/2018 SHANDA WEI MD Ot Z68.42 BODY MASS INDEX (BMI) 45.0-49.9, ADULT 02/26/2018 SHANDA WEI MD Ot Z89.511 ACQUIRED ABSENCE OF RIGHT LEG BELOW KNEE 02/26/2018 SHANDA WEI MD Ot E11.621 TYPE 2 DIABETES MELLITUS WITH FOOT ULCER 02/26/2018 SHANDA WEI MD Ot E66.01 MORBID (SEVERE) OBESITY DUE TO EXCESS CA 02/26/2018 SHANDA WEI MD Ot L97.112 NON-PRS CHRONIC ULCER OF RIGHT THIGH W F 02/26/2018 SHANDA WEI MD Ot T65.222S TOXIC EFFECT OF TOBACCO CIGARETTES, SELF 02/26/2018 SHANDA WEI MD Ot T87.89 OTHER COMPLICATIONS OF AMPUTATION STUMP 02/26/2018 SHANDA WEI MD Ot Z89.511 ACQUIRED ABSENCE OF RIGHT LEG BELOW KNEE 02/26/2018 DOMINGO FLETCHER FLOOR SCRAPER Ot E11.622 TYPE 2 DIABETES MELLITUS WITH OTHER SKIN 02/26/2018 DOMINGO FLETCHER FLOOR SCRAPER Ot E66.01 MORBID (SEVERE) OBESITY DUE TO EXCESS CA 02/26/2018 DOMINGO FLETCHER FLOOR SCRAPER Ot L97.112 NON-PRS CHRONIC ULCER OF RIGHT THIGH W F 02/26/2018 DOMINGO FLETCHER FLOOR SCRAPER Ot T65.222S TOXIC EFFECT OF TOBACCO CIGARETTES, SELF 02/26/2018 DOMINGO FLETCHER FLOOR SCRAPER Ot T87.89 OTHER COMPLICATIONS OF AMPUTATION STUMP 02/26/2018 DOMINGO FLETCHER FLOOR SCRAPER Ot Z68.42 BODY MASS INDEX (BMI) 45.0-49.9, ADULT 02/26/2018 DOMINGO FLETCHER FLOOR SCRAPER Ot Z89.511 ACQUIRED ABSENCE OF RIGHT LEG BELOW KNEE 02/26/2018 SHANDA WEI MD Ot E66.01 MORBID (SEVERE) OBESITY DUE TO EXCESS CA 02/26/2018 SHANDA WEI MD Ot T65.222S TOXIC EFFECT OF TOBACCO CIGARETTES, SELF 02/26/2018 SHANDA WEI MD Ot T87.89 OTHER COMPLICATIONS OF AMPUTATION STUMP 02/26/2018 SHANDA WEI MD Ot Z89.511 ACQUIRED ABSENCE OF RIGHT LEG BELOW KNEE 02/26/2018 KAREN LYNN APRN Ot G47.10 HYPERSOMNIA, UNSPECIFIED 02/27/2018 ADA DAMON MD Ot 424.0 MITRAL VALVE DISORDER 02/27/2018 ADA DAMON MD Ot 786.50 CHEST PAIN NOS 02/27/2018 SHANDA JON MD Ot 786.05 SHORTNESS OF BREATH 02/27/2018 SHANDA JON MD Ot 789.00 ABDOMINAL PAIN, UNSPECIFIED SITE 02/27/2018 SHANDA JON MD Ot 173.61 BASAL CELL CARCINOMA OF SKIN OF UPPER LI 02/27/2018 SHANDA JON MD Ot 241.0 NONTOX UNINODULAR GOITER 02/27/2018 SHANDA JNO MD Ot 250.63 DIAB W NEURO MANIFEST, TYPE I [JUVENILE 02/27/2018 SHANDA JON MD Ot 268.2 OSTEOMALACIA NOS 02/27/2018 SHANDA JON MD Ot 272.4 HYPERLIPIDEMIA NEC/NOS 02/27/2018 SHANDA JON MD Ot 275.2 DIS MAGNESIUM METABOLISM 02/27/2018 SHANDA JON MD Ot 305.1 TOBACCO USE DISORDER 02/27/2018 SHANDA JON MD Ot 311 DEPRESSIVE DISORDER NEC 02/27/2018 SHANDA JON MD Ot 337.1 AUT NEUROPTHY IN OTH DIS 02/27/2018 SHANDA JON MD Ot 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 DYSTROPHY, LOWER LIMB 02/27/2018 SHANDA JON MD Ot 338.4 CHRONIC PAIN SYNDROME 02/27/2018 SHANDA JON MD Ot 401.9 HYPERTENSION NOS 02/27/2018 SHANDA JON MD Ot 493.20 CHRONIC OBSTRUCTIVE ASTHMA, NOS 02/27/2018 SHANDA JON MD Ot 530.11 REFLUX ESOPHAGITIS 02/27/2018 SHANDA JON MD Ot 702.0 ACTINIC KERATOSIS 02/27/2018 SHANDA JON MD Ot 715.90 OSTEOARTHROS NOS-UNSPEC 02/27/2018 SHANDA JON MD Ot 724.03 SPINAL STENOSIS, LUMBAR REGION, W NEUROG 02/27/2018 SHANDA JON MD Ot 729.5 PAIN IN LIMB 02/27/2018 SHANDA JON MD Ot 788.41 URINARY FREQUENCY 02/27/2018 SHANDA JON MD Ot 789.00 ABDOMINAL PAIN, UNSPECIFIED SITE 02/27/2018 SHANDA JON MD Ot V17.1 FAMILY HX-STROKE 02/27/2018 SHANDA JON MD Ot V17.49 FAMILY HISTORY OF OTHER CARDIOVASCULAR D 02/27/2018 SHANDA JON MD Ot V18.0 FAM HX-DIABETES MELLITUS 02/27/2018 SHANDA JON MD Ot V58.64 LONG-TERM(CURRENT)USE OF NON-STEROIDAL A 02/27/2018 SHANDA JON MD, Ot V58.66 LONG-TERM (CURRENT) USE OF ASPIRIN 02/27/2018 SHANDA JON MD, Ot V58.67 LONG-TERM (CURRENT) USE OF INSULIN 02/27/2018 SHANDA JON MD, Ot V58.69 OTH MED,LT,CURRENT USE 02/27/2018 BUZZ DPM, LAURA Q Ot M86.9 OSTEOMYELITIS, UNSPECIFIED 02/27/2018 SHANDA WEI MD, Ot E11.622 TYPE 2 DIABETES MELLITUS WITH OTHER SKIN 02/27/2018 SHANDA WEI MD, Ot E66.01 MORBID (SEVERE) OBESITY DUE TO EXCESS CA 02/27/2018 SHANDA WEI MD, Ot L97.112 NON-PRS CHRONIC ULCER OF RIGHT THIGH W F 02/27/2018 SHANDA WEI MD, Ot T65.222S TOXIC EFFECT OF TOBACCO CIGARETTES, SELF 02/27/2018 SHANDA WEI MD, Ot T87.89 OTHER COMPLICATIONS OF AMPUTATION STUMP 02/27/2018 SHANDA WEI MD, Ot Z68.42 BODY MASS INDEX (BMI) 45.0-49.9, ADULT 02/27/2018 SHANDA WEI MD, Ot Z89.511 ACQUIRED ABSENCE OF RIGHT LEG BELOW KNEE 02/27/2018 SHANDA WEI MD, Ot E11.621 TYPE 2 DIABETES MELLITUS WITH FOOT ULCER 02/27/2018 SHANDA WEI MD, Ot E66.01 MORBID (SEVERE) OBESITY DUE TO EXCESS CA 02/27/2018 SHANDA WEI MD, Ot L97.112 NON-PRS CHRONIC ULCER OF RIGHT THIGH W F 02/27/2018 SHANDA WEI MD, Ot T65.222S TOXIC EFFECT OF TOBACCO CIGARETTES, SELF 02/27/2018 SHANDA WEI MD, Ot T87.89 OTHER COMPLICATIONS OF AMPUTATION STUMP 02/27/2018 SHANDA WEI MD, Ot Z89.511 ACQUIRED ABSENCE OF RIGHT LEG BELOW KNEE 02/27/2018 DOMINGO FLETCHER APRN Ot E11.622 TYPE 2 DIABETES MELLITUS WITH OTHER SKIN 02/27/2018 DOMINGO FLETCHER APRN Ot E66.01 MORBID (SEVERE) OBESITY DUE TO EXCESS CA 02/27/2018 DOMINGO FLETCHER APRN Ot L97.112 NON-PRS CHRONIC ULCER OF RIGHT THIGH W F 02/27/2018 DOMINGO FLETCHER APRN Ot T65.222S TOXIC EFFECT OF TOBACCO CIGARETTES, SELF 02/27/2018 DOMINGO FLETCHER APRN Ot T87.89 OTHER COMPLICATIONS OF AMPUTATION STUMP 02/27/2018 DOMINGO FLETCHER APRN Ot Z68.42 BODY MASS INDEX (BMI) 45.0-49.9, ADULT 02/27/2018 DOMINGO FLETCHER APRN Ot Z89.511 ACQUIRED ABSENCE OF RIGHT LEG BELOW KNEE 02/27/2018 SHANDA WEI MD Ot E66.01 MORBID (SEVERE) OBESITY DUE TO EXCESS CA 02/27/2018 SHANDA WEI MD Ot T65.222S TOXIC EFFECT OF TOBACCO CIGARETTES, SELF 02/27/2018 SHANDA WEI MD, Ot T87.89 OTHER COMPLICATIONS OF AMPUTATION STUMP 02/27/2018 SHANDA WEI MD, Ot Z89.511 ACQUIRED ABSENCE OF RIGHT LEG BELOW KNEE 02/27/2018 KAREN LYNN APRN Ot G47.10 HYPERSOMNIA, UNSPECIFIED 02/28/2018 KAREN LYNN APRN Ot G47.10 HYPERSOMNIA, UNSPECIFIED 02/28/2018 KAREN LYNN APRN Ot I10 ESSENTIAL (PRIMARY) HYPERTENSION 02/28/2018 KAREN LYNN APRN Ot I49.9 CARDIAC ARRHYTHMIA, UNSPECIFIED 02/28/2018 KAREN LYNN APRN Ot R06.83 SNORING Procedures Code Description Performed By Performed On [id number] FLUOROSCOPY OF AORTA, BI LE ART USING L 11/08/2015 [id number] DETACHMENT AT LEFT 1ST TOE , COMPLETE, OP 11/11/2015 [id number] REPAIR LEFT FOOT SKIN, EXTERNAL APPROACH 11/15/2015 Results Test Result Range CBC With Differential/Platelet - 11/21/16 11:48 WBC 11.6 x10E3/uL 3.4-10.8 RBC 5.68 x10E6/uL 4.14-5.80 Hemoglobin 15.9 g/dL 12.6-17.7 Hematocrit 48.1 % 37.5-51.0 MCV 85 fL 79-97 MCH 28.0 pg 26.6-33.0 MCHC 33.1 g/dL 31.5-35.7 RDW 13.6 % 12.3-15.4 Platelets 206 x10E3/uL 150-379 Neutrophils 71 % Lymphs 19 % Monocytes 7 % Eos 2 % Basos 0 % Neutrophils (Absolute) 8.2 x10E3/uL 1.4-7.0 Lymphs (Absolute) 2.3 x10E3/uL 0.7-3.1 Monocytes(Absolute) 0.8 x10E3/uL 0.1-0.9 Eos (Absolute) 0.3 x10E3/uL 0.0-0.4 Baso (Absolute) 0.0 x10E3/uL 0.0-0.2 Immature Granulocytes 1 % Immature Grans (Abs) 0.1 x10E3/uL 0.0-0.1 Bacteria identification in isolate by anaerobe culture - 04/26/17 09:20 Bacteria identification in isolate by anaerobe culture NOANA NRG Gram stain microscopy - 04/26/17 09:20 GRAM STAIN RESULT MODERATE # GRAM POSITIVE COCCI RESEMBLING STAPH NR Bacteria identification in wound by culture - 04/26/17 09:20 Bacteria identification in wound by culture [id number] [facility] FREE TEXT EXTERNAL SENSITIVITY REPORTED AT 1656, 6-17 NRG QUANTITY OF GROWTH Abundant Growth NRG MRSA AGAR Screening test for MRSA is NEGATIVE (Final to follow) [facility] Bacterial susceptibility panel - 04/26/17 09:20 Oxacillin susceptibility test by minimum inhibitory concentration < = NRG Gentamicin susceptibility test by minimum inhibitory concentration < = NRG Clindamycin susceptibility test by minimum inhibitory concentration <= NRG Erythromycin susceptibility test by minimum inhibitory concentration 0.5 NRG Trimethoprim/sulfamethoxazole susceptibility test by minimum inhibitoryconcentration <= NRG Vancomycin susceptibility test by minimum inhibitory concentration 1 NRG Levofloxacin susceptibility test by minimum inhibitory concentration 0.25 NRG Rifampin susceptibility test by minimum inhibitory concentration <= NRG Tetracycline susceptibility test by minimum inhibitory concentration <= NRG Fungus culture - 04/26/17 09:20 FUNGUS REPORT NO FUNGUS GROWTH OBSERVED NRG CBC With Differential/Platelet - 04/27/17 12:36 WBC 9.5 x10E3/uL 3.4-10.8 RBC 5.73 x10E6/uL 4.14-5.80 Hemoglobin 16.1 g/dL 12.6-17.7 Hematocrit 49.3 % 37.5-51.0 MCV 86 fL 79-97 MCH 28.1 pg 26.6-33.0 MCHC 32.7 g/dL 31.5-35.7 RDW 13.6 % 12.3-15.4 Platelets 183 x10E3/uL 150-379 Neutrophils 69 % Lymphs 19 % Monocytes 10 % Eos 2 % Basos 0 % Neutrophils (Absolute) 6.6 x10E3/uL 1.4-7.0 Lymphs (Absolute) 1.8 x10E3/uL 0.7-3.1 Monocytes(Absolute) 0.9 x10E3/uL 0.1-0.9 Eos (Absolute) 0.1 x10E3/uL 0.0-0.4 Baso (Absolute) 0.0 x10E3/uL 0.0-0.2 Immature Granulocytes 0 % Immature Grans (Abs) 0.0 x10E3/uL 0.0-0.1 Basic Metabolic Panel (8) - 04/27/17 12:36 Glucose, Serum 294 mg/dL 65-99 BUN 14 mg/dL 6-24 Creatinine, Serum 0.93 mg/dL 0.76-1.27 eGFR If NonAfricn Am 94 mL/min/1.73 >59 eGFR If Africn Am 109 mL/min/1.73 >59 BUN/Creatinine Ratio 15 9-20 Sodium, Serum 135 mmol/L 134-144 Potassium, Serum 4.7 mmol/L 3.5-5.2 Chloride, Serum 91 mmol/L 96-106 Carbon Dioxide, Total 27 mmol/L 18-29 Calcium, Serum 9.3 mg/dL 8.7-10.2 Sedimentation Rate-Westergren - 04/27/17 12:36 Sedimentation Rate-Westergren 44 mm/hr 0-30 Bacteria identification in isolate by anaerobe culture - 06/21/17 08:43 Bacteria identification in isolate by anaerobe culture NOANA [facility] Gram stain microscopy - 06/21/17 08:43 GRAM STAIN RESULT FEW GRAM POSITIVE COCCI [facility] Bacteria identification in wound by culture - 06/21/17 08:43 Bacteria identification in wound by culture [id number] [facility] FREE TEXT EXTERNAL [place]ENSITIVITY [place]ED AT 09[address], 8-17 NRG QUANTITY OF GROWTH Moderate Growth NR MRSA AGAR Screening test for MRSA is NEGATIVE (Final to follow) [facility] Bacterial susceptibility panel - 06/21/17 08:43 Oxacillin susceptibility test by minimum inhibitory concentration < = NRG Gentamicin susceptibility test by minimum inhibitory concentration < = NRG Clindamycin susceptibility test by minimum inhibitory concentration <= NRG Erythromycin susceptibility test by minimum inhibitory concentration <= NRG Trimethoprim/sulfamethoxazole susceptibility test by minimum inhibitoryconcentration <= NRG Vancomycin susceptibility test by minimum inhibitory concentration 1 NRG Levofloxacin susceptibility test by minimum inhibitory concentration 0.25 NRG Rifampin susceptibility test by minimum inhibitory concentration <= NRG Tetracycline susceptibility test by minimum inhibitory concentration <= NRG Bacterial susceptibility panel - 06/21/17 08:43 Gentamicin susceptibility test by minimum inhibitory concentration S NRG Erythromycin susceptibility test by minimum inhibitory concentration 2 NRG Vancomycin susceptibility test by minimum inhibitory concentration 1 NRG Ampicillin susceptibility test by minimum inhibitory concentration < = NRG Linezolid susceptibility test by minimum inhibitory concentration 2 NRG Fungus culture - 06/21/17 08:43 FUNGUS REPORT NO FUNGUS GROWTH OBSERVED NRG THYROID ANALYZER - 01/16/18 09:45 TSH 1.04 mIU/L 0.40-4.50 Encounters ACCT No. Visit Date/Time Discharge Status Pt. Type Provider Facility Loc./Unit Complaint [id number] 02/27/2018 20:44:00 02/28/2018 06:00:00 DIS Outpatient KAREN LYNN APRN [facility] SLEEP G47.10 HYPERSOMNIA [id number] 07/12/2017 08:15:00 07/12/2017 23:59:59 CLS Outpatient SHANDA WEI MD [facility] WOUNDCARE [id number] 07/03/2017 08:19:00 07/03/2017 23:59:59 CLS Outpatient DOMINGO FLETCHER APRN [facility] WOUNDCARE [id number] 06/28/2017 08:02:00 06/28/2017 23:59:59 CLS Outpatient SHANDA WEI MD [facility] WOUND[facility]ARE [id number] 06/21/2017 08:00:00 06/21/2017 23:59:59 CLS Outpatient SHANDA WEI MD [facility] W[facility] [id number] 06/14/2017 08:06:00 06/18/2017 16:00:00 DIS Outpatient SHANDA WEI MD [facility] WOUND[facility] [id number] 11/24/2016 08:02:00 11/24/2016 16:00:00 DIS Outpatient DAGO MARIEE MD [facility] WOUNDCARE [id number] 12/06/2015 05:44:00 12/06/2015 23:59:59 CLS Outpatient BUZZ DPM, LAURA Q [facility] CARD OSTEOMYLITIS LEFT FOOT [id number] 11/11/2015 12:57:00 11/25/2015 12:59:00 DIS Inpatient BRANDO BAZAN DO [facility] 4TH SWB [id number] 11/06/2015 03:40:00 11/11/2015 12:56:00 DIS Inpatient BRANDO BAZAN DO [facility] 4TH OSTEOMYELITIS/ CELLULITIS L FOOT [id number] 04/26/2015 21:18:00 04/29/2015 10:38:00 DIS Inpatient SARAHY SANTANA DO [facility] SURGICAL CELLULITIUS, OSTEOMYELITIS [id number] 06/12/2013 07:48:00 06/12/2013 23:59:59 CLS Outpatient SHANDA JON MD [facility] RAD ABD PAIN,SOB [id number] 06/10/2013 11:05:00 06/10/2013 23:59:59 CLS Outpatient SHANDA JON MD [facility] RAD ABD PAIN,SOB [id number] 04/30/2013 09:00:00 04/30/2013 23:59:59 CLS Outpatient ADA DAMON MD [facility] CARD CHEST PAIN [id number] 04/26/2015 18:37:00 Document Registration [id number] 10/19/2012 03:00:00 Document Registration [id number] 08/03/2011 10:54:00 Document Registration [id number] 06/23/2010 18:45:00 Document Registration [id number] 02/06/2018 09:30:00 02/06/2018 23:59:59 [id number] 01/16/2018 09:40:00 Document Registration [id number] 04/28/2017 08:36:00 Document Registration [id number] 11/22/2016 07:05:00 Document Registration
[2018-03-05] MEDS ORDERED: ACETAMINOPHEN 500 MG TAB (TYLENOL) PO PRN (21:45)
[2018-03-05 21:50] VITALS: BP 132/63
[2018-03-05] MEDS: 1/2 NS IV SOLUTION 1,000 ML IV SCH (22:24)
[2018-03-06] VITALS (8 sets, daily range): BP systolic 106–158; BP diastolic 60–76
[2018-03-06] MEDS: 1/2 NS IV SOLUTION 1,000 ML IV SCH (06:08)
[2018-03-06] MEDS: inSUlin ASPART (NovoLOG) 1 UNIT/0.01 ML (CHARGE PER UNIT) SC SCH ×4 (06:08→21:18)
[2018-03-06 06:17] LABS: BASOPHILS % (AUTO) 0 % (0-10); EOSINOPHILS # (AUTO) 0.2 10^3/uL (0.0-0.3); EOSINOPHILS % (AUTO) 3 % (0-10); HEMATOCRIT 45 % (40-54); HEMOGLOBIN 14.6 G/DL (13.3-17.7); LYMPHOCYTES # (AUTO) 1.8 X 10^3 (1.0-4.0); LYMPHOCYTES % (AUTO) 20 % (12-44); MEAN CORPUSCULAR HEMOGLOBIN 28 PG (25-34); MEAN CORPUSCULAR HGB CONC 33 G/DL (32-36); MEAN CORPUSCULAR VOLUME 86 FL (80-99); MEAN PLATELET VOLUME 9.9 FL (7.4-10.4); MONOCYTES # (AUTO) 0.9 X 10^3 (0.0-1.0); MONOCYTES % (AUTO) 10 % (0-12); NEUTROPHILS % (AUTO) 67 % (42-75); PLATELET COUNT 166 10^3/uL (130-400); RED BLOOD COUNT 5.21 10^6/uL (4.35-5.85); RED CELL DISTRIBUTION WIDTH 13.4 % (10.0-14.5); WHITE BLOOD COUNT 8.9 10^3/uL (4.3-11.0)
[2018-03-06 06:49] LABS: ALANINE AMINOTRANSFERASE 14 U/L (0-55); ALBUMIN 3.3 GM/DL (3.2-4.5); ALKALINE PHOSPHATASE 96 U/L (40-136); BILIRUBIN,TOTAL 0.3 MG/DL (0.1-1.0); BUN/CREATININE RATIO 16; CALCIUM 9.2 MG/DL (8.5-10.1); CARBON DIOXIDE 26 MMOL/L (21-32); CHLORIDE 104 MMOL/L (98-107); CREATININE SERUM 0.73 MG/DL (0.60-1.30); GFR ESTIMATED > 60; GLUCOSE 169 MG/DL (70-105); SODIUM 137 MMOL/L (135-145); TOTAL PROTEIN 6.8 GM/DL (6.4-8.2)
[2018-03-06] MEDS ORDERED: OXYC15TA73 PO (08:28)
[2018-03-06] MEDS ORDERED: RT-ALBUINH INH (08:28)
[2018-03-06] MEDS ORDERED: IBUP-1773 PO (08:28)
[2018-03-06] MEDS ORDERED: GABA600T2 PO (08:28)
[2018-03-06] MEDS ORDERED: INSU100I10 SC (08:28)
[2018-03-06] MEDS ORDERED: HYDR-3820 PO (08:28)
[2018-03-06] MEDS ORDERED: IBUP-30 PO (08:36)
[2018-03-06] MEDS ORDERED: INSU100I14 SQ (08:36)
[2018-03-06] MEDS ORDERED: LOSA50TA36 PO (08:36)
[2018-03-06] MEDS ORDERED: PANT40TA3 PO (08:36)
[2018-03-06] MEDS ORDERED: PANTOPRAZOLE 40 MG (PROTONIX) TAB PO PRN (09:15)
[2018-03-06] MEDS ORDERED: RT-ALBUTEROL SULF 2.5 MG/3 ML PRE-MIX VIAL IH PRN (09:45)
[2018-03-06] MEDS: oxyCODONE ER 15 MG (oxyCONTIN CR) TAB PO SCH ×2 (10:10→20:31)
--- NOTE | 2018-03-06 11:18 | History & Physicial (CHS) ---
HPI History of Present Illness: 52 yo male presented to ER with hot and cold sweats for a few days. He thought he had pneumonia. He has chronic productive cough which was not different than normal, but the new sweats and hot flashes made him assume he had a respiratory infection. He did not check his temperature at home. He has had some mild discomfort with urination, especially at the end of urination and for about 3 weeks has noticed he is passing air when he urinates. He has DMII and is taking only Lantus recently. Source: patient Date seen by provider: Mar 06, 2018 Time Seen by Provider: 11:00 Attending Physician Magy Wayne MD PCP Domenico Abdalla Aprn Consult Date of Admission Mar 05, 2018 at 9:16 pm Home Medications Home Medications Reviewed patient Home Medication Reconciliation performed by pharmacy medication reconciliations heating and cooling technician and/or nursing. Patients Allergies have been reviewed. Allergies Coded Allergies: pregabalin (Unverified Allergy, Severe, FEVER, 04/26/15) [id number] Hx Patient Social History Alcohol Use: Denies Use Recreational Drug Use: Yes (THC) Drug of Choice: THC DAILY, HX OF METH, LSD, ECSTASY, CRACK COCAINE, MUSHROOMS- DENIES IV USE Smoking Status: Current Everyday Smoker Type Used: Cigarettes Recent Foreign Travel: No Contact w/other who traveled: No Recent Hopitalizations: No Recent Infectious Disease Expo: No Physical Abuse Screen: No Sexual Abuse: No Immunizations Up To Date Tetanus Booster (TDap): More than 5yrs Date of Pneumonia Vaccine: Sep 19, 2011 Date of Influenza Vaccine: Aug 28, 2015 Past Medical History PMHx: Chronic pain DMII HTN HLD Atherosclerotic occlusive disease SurgHx: Right BKA Left great toe, 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 Left thigh hematoma evacuation Family Medical History Significant Family History: Heart Disease, Diabetes Family History: Cardiovascular disease 19 FATHER ( heart attack) G8 BROTHER Diabetes mellitus 19 MOTHER ( complications diabetes) Psychosocial problem G8 BROTHER (in care home) Review of Systems ([facility]) Constitutional: chills, diaphoresis, malaise EENTM: nose congestion Respiratory: cough, phlegm Cardiovascular: no symptoms reported Gastrointestinal: no symptoms reported Genitourinary: see HPI Musculoskeletal: back pain, joint pain Skin: no symptoms reported Psychiatric/Neurological: No Symptoms Reported Reviewed Test Results Reviewed Test Results Lab Laboratory Tests Test 03/05/18 18:43 03/05/18 19:25 03/05/18 21:52 03/05/18 22:12 Range/Units White Blood Count 10.9 4.3-11.0 10^3/uL Red Blood Count 5.56 4.35-5.85 10^6/uL Hemoglobin 16.0 13.3-17.7 G/DL Hematocrit 48 40-54 % Mean Corpuscular Volume 87 80-99 FL Mean Corpuscular Hemoglobin 29 25-34 PG Mean Corpuscular Hemoglobin Concent 33 32-36 G/DL Red Cell Distribution Width 13.4 10.0-14.5 % Platelet Count 191 130-400 10^3/uL Mean Platelet Volume 9.9 7.4-10.4 FL Neutrophils (%) (Auto) 61 42-75 % Lymphocytes (%) (Auto) 27 12-44 % Monocytes (%) (Auto) 9 0-12 % Eosinophils (%) (Auto) 2 0-10 % Basophils (%) (Auto) 1 0-10 % Neutrophils # (Auto) 6.7 1.8-7.8 X 10^3 Lymphocytes # (Auto) 2.9 1.0-4.0 X 10^3 Monocytes # (Auto) 1.0 0.0-1.0 X 10^3 Eosinophils # (Auto) 0.3 0.0-0.3 10^3/uL Basophils # (Auto) 0.1 0.0-0.1 10^3/uL Prothrombin Time 13.6 12.2-14.7 SEC INR Comment 1.0 0.8-1.4 Activated Partial Thromboplast Time 35 24-35 SEC Sodium Level 137 135-145 MMOL/L Potassium Level 3.6 3.6-5.0 MMOL/L Chloride Level 102 98-107 MMOL/L Carbon Dioxide Level 27 21-32 MMOL/L Anion Gap 8 5-14 MMOL/L Blood Urea Nitrogen 16 7-18 MG/DL Creatinine 0.84 0.60-1.30 MG/DL Estimat Glomerular Filtration Rate > 60 BUN/Creatinine Ratio 19 Glucose Level 115 H 70-105 MG/DL Lactic Acid Level 1.59 0.50-2.00 MMOL/L Calcium Level 9.5 8.5-10.1 MG/DL Total Bilirubin 0.4 0.1-1.0 MG/DL Aspartate Amino Transf (AST/SGOT) 16 5-34 U/L Alanine Aminotransferase (ALT/SGPT) 17 0-55 U/L Alkaline Phosphatase 113 40-136 U/L Troponin I < 0.30 <0.30 NG/ML B-Type Natriuretic Peptide 19.4 <100.0 PG/ML Total Protein 7.8 6.4-8.2 GM/DL Albumin 3.8 3.2-4.5 GM/DL Amylase Level 29 25-125 U/L Lipase < 4 L 8-78 U/L Serum Alcohol < 10 <10 MG/DL Urine Color KARLEY H Urine Clarity VERY CLOUDY H Urine pH 6 5-9 Urine Specific [place] 1.025 H 1.016-1.022 Urine Protein 3+ H NEGATIVE Urine Glucose (UA) NEGATIVE NEGATIVE Urine Ketones 1+ H NEGATIVE Urine Nitrite POSITIVE H NEGATIVE Urine Bilirubin NEGATIVE NEGATIVE Urine Urobilinogen 1 NORMAL MG/DL Urine Leukocyte Esterase 1+ H NEGATIVE Urine RBC (Auto) 1+ H NEGATIVE Urine RBC 0-2 /HPF Urine WBC 10-25 H /HPF Urine Crystals NONE /LPF Urine Bacteria LARGE H /HPF Urine Casts NONE /LPF Urine Mucus NEGATIVE /LPF Urine Culture Indicated YES Urine Opiates Screen POSITIVE H NEGATIVE Urine Oxycodone Screen POSITIVE H NEGATIVE Urine Methadone Screen NEGATIVE NEGATIVE Urine Propoxyphene Screen NEGATIVE NEGATIVE Urine Barbiturates Screen NEGATIVE NEGATIVE Ur Tricyclic Antidepressants Screen NEGATIVE NEGATIVE Urine Phencyclidine Screen NEGATIVE NEGATIVE Urine Amphetamines Screen NEGATIVE NEGATIVE Urine Methamphetamines Screen NEGATIVE NEGATIVE Urine Benzodiazepines Screen NEGATIVE NEGATIVE Urine Cocaine Screen NEGATIVE NEGATIVE Urine Cannabinoids Screen POSITIVE H NEGATIVE Glucometer 49 *L 68 L 70-110 MG/DL Test 03/05/18 22:37 03/05/18 23:23 03/06/18 06:05 03/06/18 10:54 Range/Units Glucometer 130 H 187 H 156 H 114 H 70-110 MG/DL White Blood Count 8.9 4.3-11.0 10^3/uL Red Blood Count 5.21 4.35-5.85 10^6/uL Hemoglobin 14.6 13.3-17.7 G/DL Hematocrit 45 40-54 % Mean Corpuscular Volume 86 80-99 FL Mean Corpuscular Hemoglobin 28 25-34 PG Mean Corpuscular Hemoglobin Concent 33 32-36 G/DL Red Cell Distribution Width 13.4 10.0-14.5 % Platelet Count 166 130-400 10^3/uL Mean Platelet Volume 9.9 7.4-10.4 FL Neutrophils (%) (Auto) 67 42-75 % Lymphocytes (%) (Auto) 20 12-44 % Monocytes (%) (Auto) 10 0-12 % Eosinophils (%) (Auto) 3 0-10 % Basophils (%) (Auto) 0 0-10 % Neutrophils # (Auto) 6.0 1.8-7.8 X 10^3 Lymphocytes # (Auto) 1.8 1.0-4.0 X 10^3 Monocytes # (Auto) 0.9 0.0-1.0 X 10^3 Eosinophils # (Auto) 0.2 0.0-0.3 10^3/uL Basophils # (Auto) 0.0 0.0-0.1 10^3/uL Sodium Level 137 135-145 MMOL/L Potassium Level 4.0 3.6-5.0 MMOL/L Chloride Level 104 98-107 MMOL/L Carbon Dioxide Level 26 21-32 MMOL/L Anion Gap 7 5-14 MMOL/L Blood Urea Nitrogen 12 7-18 MG/DL Creatinine 0.73 0.60-1.30 MG/DL Estimat Glomerular Filtration Rate > 60 BUN/Creatinine Ratio 16 Glucose Level 169 H 70-105 MG/DL Calcium Level 9.2 8.5-10.1 MG/DL Total Bilirubin 0.3 0.1-1.0 MG/DL Aspartate Amino Transf (AST/SGOT) 13 5-34 U/L Alanine Aminotransferase (ALT/SGPT) 14 0-55 U/L Alkaline Phosphatase 96 40-136 U/L Total Protein 6.8 6.4-8.2 GM/DL Albumin 3.3 3.2-4.5 GM/DL Radiology CXR 03/05/[address] abdomen/pelvis 03/05/18: IMPRESSION: There is air present within the urinary bladder that could be from instrumentation versus gas producing cystitis. Physical Exam-([facility]) Physical Exam Vital Signs VS - Last 72 Hours, by Label 03/05/18 03/05/18 03/05/18 03/05/18 18:30 20:37 21:19 21:47 Temp 97.9 98.1 98.1 Pulse 84 67 75 Resp 22 13 15 B/P (MAP) 151/85 (107) 119/81 (94) 141/81 (94) Pulse Ox 96 96 96 O2 Delivery Room Air Nasal Cannula Nasal Cannula Nasal Cannula O2 Flow Rate 2.00 2.00 2.00 03/05/1818 03/06/18 03/06/18 21:50 23:28 00:00 01:00 Temp 95.6 95.7 Pulse 65 74 71 73 Resp 18 18 B/P (MAP) 132/63 (86) 142/65 (90) Pulse Ox 91 96 O2 Delivery Nasal Cannula O2 Flow Rate 2.50 03/06/18 03/06/18 03/06/18 03/06/18 02:00 04:00 06:00 07:00 Temp 96.8 97.0 97.9 Pulse 82 71 66 64 Resp 19 18 18 B/P (MAP) 135/64 (87) 139/64 (89) 144/75 (98) Pulse Ox 95 94 96 O2 Delivery Nasal Cannula Nasal Cannula Room Air O2 Flow Rate 2.50 2.50 03/06/18 08:00 Temp 98.9 Pulse 68 Resp 20 B/P (MAP) 140/72 (94) Pulse Ox 97 O2 Delivery Nasal Cannula O2 Flow Rate 2.00 Capillary Refill : Less Than 3 Seconds General Appearance: no apparent distress Respiratory: lungs clear, normal breath sounds Cardiovascular: regular rate, rhythm, no murmur Gastrointestinal: normal bowel sounds, non tender, soft Extremities: pedal edema (left), other (right lower leg amputation status with prosthetic in place) Neurologic/Psychiatric: alert, normal mood/affect Skin: normal color, warm/dry Assessment/Plan Assessment/Plan Admission Status: Inpatient Order (span 2 midnights) Reason for Inpatient Admission: Urinary tract infection with gas production with underlying diabetes at high risk for complications. (1) UTI (urinary tract infection) Status: Acute Assessment & Plan: Ceftriaxone started in ER, will continue while awaiting culture results. Note of air in bladder on CT scan and per patient report, consider Urology consult if not improving with treatment. Qualifiers: Qualified Codes: N30.00 - Acute cystitis without hematuria (2) IDDM (insulin dependent diabetes mellitus) Status: Chronic Assessment & Plan: Having low blood sugar since admission, will hold home insulin and use sliding scale as needed. (3) Hypertension Status: Chronic Assessment & Plan: Resume home losartan- was taking prn, will make scheduled. Qualifiers: Qualified Codes: I10 - Essential (primary) hypertension (4) Chronic pain Status: Chronic Assessment & Plan: Continue home oxycontin and hydrocodone. Note of THC positive urine- he reports last use a couple of weeks ago and that he is quitting per primary provider's recommendation. Qualifiers: Qualified Codes: G89.29 - Other chronic pain (5) Marijuana use Status: Acute Assessment & Plan: As noted above, he reports he is quitting. (6) Tobacco use Status: Chronic Assessment & Plan: Discussed importance of smoking cessation, he was nearly successful with Chantix a few months ago and wants to try again after discharge. (7) DVT prophylaxis Status: Acute Assessment & Plan: Enoxaparin Clinical Quality Measures DVT/VTE Risk/Contraindication: Risk Factor Score Per Nursin RFS Level Per Nursing on Admit: 4+=Very High Copy Copies To 1: JOSE Esparza BETHANY N MD Mar 06, 2018 11:18 am
[2018-03-06] MEDS: HYDROcodone/APAP 10 MG/325 MG (LORTAB) TAB PO PRN ×2 (11:20→16:26)
[2018-03-06] MEDS: GABAPENTIN 600 MG (NEURONTIN) TAB PO SCH ×2 (12:50→20:30)
[2018-03-06] MEDS: LOSARTAN 50 MG (COZAAR) TAB PO SCH (12:51)
[2018-03-06] MEDS: IBUPROFEN 600 MG (MOTRIN) TAB PO SCH (20:30)
[2018-03-06] MEDS ORDERED: cefTRIAXone 1 GM/NS 100 ML IVPB IV SCH ×2 (21:00)
[2018-03-07] VITALS: BP 135/64
[2018-03-07 04:00] VITALS: BP 112/57
[2018-03-07] MEDS: inSUlin ASPART (NovoLOG) 1 UNIT/0.01 ML (CHARGE PER UNIT) SC SCH (05:04)
[2018-03-07 08:00] VITALS: BP 128/81
[2018-03-07] MEDS: LOSARTAN 50 MG (COZAAR) TAB PO SCH (08:55)
[2018-03-07] MEDS: IBUPROFEN 600 MG (MOTRIN) TAB PO SCH (08:55)
[2018-03-07] MEDS: HYDROcodone/APAP 10 MG/325 MG (LORTAB) TAB PO PRN (08:55)
[2018-03-07] MEDS: GABAPENTIN 600 MG (NEURONTIN) TAB PO SCH (08:55)
[2018-03-07] MEDS: oxyCODONE ER 15 MG (oxyCONTIN CR) TAB PO SCH (08:56)
[2018-03-07] MEDS ORDERED: LOSARTAN 50 MG (COZAAR) TAB PO PRN (09:00)
[2018-03-07] MEDS ORDERED: CIPR-225 PO (09:23)
--- NOTE | 2018-03-07 09:25 | Discharge Instructions ---
Discharge [facility] Discharge Medications New, Converted or Re-Newed RX: Transmitted to Pharmacy New Medications: Ciprofloxacin HCl (Cipro) 500 Mg Tablet 500 MG PO BID, #10 TAB 0 Refills Continued Medications: Albuterol Sulfate (Proair Hfa) 1 Puff Puff 2 PUFF INH Q4H PRN for SHORTNESS OF BREATH, INHALER Gabapentin (Gabapentin) 600 Mg Tablet 600 MG PO TID, TAB Hydrocodone/Acetaminophen (Hydrocodon-Acetaminophn 10-325) 1 Each Tablet 1 TAB PO TID, TAB Ibuprofen (Ibuprofen) 600 Mg Tablet 600 MG PO BID, TAB Losartan Potassium (Losartan Potassium) 50 Mg Tablet 50 MG PO DAILY PRN for HIGH BLOOD PRESSURE, TAB LAST FILLED #90 11-06-17 Oxycodone HCl (Oxycontin) 15 Mg Tab.er.12h 15 MG PO Q12H, TAB Pantoprazole Sodium (Pantoprazole Sodium) 40 Mg Tablet.dr 40 MG PO DAILY PRN for HEARTBURN, TAB LAST FILLED #90 11-06-17 Discontinued Medications: Ibuprofen (Advil) 200 Mg Tablet 600 MG PO BID PRN for PAIN-MILD, TAB TAKES 3 (200MG) TABLETS Insulin Aspart (Novolog Flexpen) 300 Units/3 Ml Solution 20-30 UNITS SQ AC PRN for HIGH BLOOD SUGAR, EA Insulin Glargine,Hum.rec.anlog (Lantus Solostar) 100 Unit/1 Ml Insuln.pen 55 UNITS SC BID, EA Patient Instructions Goal/Follow Up Appt: Follow up with Domenico Abdalla on 03/15 at 11:40 am. Patient Instructions: Hold your insulin for now, if your blood sugar is consistently over 140 when you check it, restart your long-acting insulin. Return to [facility] For: Fever, inability to keep down medications Activity & Diet Discharge Diet: ADA Diet Activity as Tolerated: Yes Copy Copies To 1: JOSE Esparza BETHANY N MD Mar 07, 2018 9:25 am
--- NOTE | 2018-03-07 09:26 | Discharge Summary ---
Diagnosis/Chief Complaint Date of Admission Mar 05, 2018 at 9:16 pm Date of Discharge March 07, 2018 Admission Diagnosis Admission Diagnosis (1) UTI (urinary tract infection) Status: Acute Qualifiers: Qualified Codes: N30.00 - Acute cystitis without hematuria (2) IDDM (insulin dependent diabetes mellitus) Status: Chronic (3) Hypertension Status: Chronic Qualifiers: Qualified Codes: I10 - Essential (primary) hypertension (4) Chronic pain Status: Chronic Qualifiers: Qualified Codes: G89.29 - Other chronic pain (5) Marijuana use Status: Acute (6) Tobacco use Status: Chronic . Discharge Diagnosis (1) UTI (urinary tract infection) Assessment & Plan: Ceftriaxone started in ER, will continue while awaiting culture results. Note of air in bladder on CT scan and per patient report, consider Urology consult if not improving with treatment. 03/07 culture with klebsiella resistant to ampicillin and nitrofurantoin, discharged on cipro for 5 more days (received 2 doses of ceftriaxone inpatient) . If air persists, recommend Urology consult (2) IDDM (insulin dependent diabetes mellitus) Assessment & Plan: Having low blood sugar since admission, will hold home insulin and use sliding scale as needed. Holding home insulin on d/c as he had no elevated blood sugar inpatient and had low after arriving- he will check his sugar and if running above 140, will resume home long-acting insulin, otherwise will follow-up with PCP. (3) Hypertension Assessment & Plan: Resume home losartan- was taking prn, will make scheduled. (4) Chronic pain Assessment & Plan: Continued home oxycontin and hydrocodone. Note of THC positive urine- he reports last use a couple of weeks ago and that he is quitting per primary provider's recommendation. (5) Marijuana use Assessment & Plan: As noted above, he reports he is quitting. (6) Tobacco use Assessment & Plan: Discussed importance of smoking cessation, he was nearly successful with Chantix a few months ago and wants to try again after discharge. Chief Complaint/HPI Chief Complaint/HPI 52 yo male presented to ER with hot and cold sweats for a few days. He thought he had pneumonia. He has chronic productive cough which was not different than normal, but the new sweats and hot flashes made him assume he had a respiratory infection. He did not check his temperature at home. He has had some mild discomfort with urination, especially at the end of urination and for about 3 weeks has noticed he is passing air when he urinates. He has DMII and is taking only Lantus recently. Discharge Summary-Simple/Stand Consultations Discharge Physical Examination Allergies: Coded Allergies: pregabalin (Unverified Allergy, Severe, FEVER, 04/26/15) Vitals & I&Os Vital Sign - Last 12Hours Date Time Temp Pulse Resp B/P (MAP) Pulse Ox O2 Delivery O2 Flow Rate FiO2 03/07/18 08:00 97.3 58 18 128/81 (97) 95 Nasal Cannula 1.50 Intake and Output 03/07/18 00:00 Intake Total 2660 ml Output Total 1450 ml Balance 1210 ml General Appearance: Alert, No Acute Distress Respiratory: Other (no respiratory distress or accessory muscle use) Psych/Mental Status: Mental Status NL Hospital Course See final discharge diagnosis. Labs Laboratory Tests Test 03/05/18 18:43 03/05/18 19:25 03/05/18 21:52 03/05/18 22:12 Range/Units White Blood Count 10.9 4.3-11.0 10^3/uL Red Blood Count 5.56 4.35-5.85 10^6/uL Hemoglobin 16.0 13.3-17.7 G/DL Hematocrit 48 40-54 % Mean Corpuscular Volume 87 80-99 FL Mean Corpuscular Hemoglobin 29 25-34 PG Mean Corpuscular Hemoglobin Concent 33 32-36 G/DL Red Cell Distribution Width 13.4 10.0-14.5 % Platelet Count 191 130-400 10^3/uL Mean Platelet Volume 9.9 7.4-10.4 FL Neutrophils (%) (Auto) 61 42-75 % Lymphocytes (%) (Auto) 27 12-44 % Monocytes (%) (Auto) 9 0-12 % Eosinophils (%) (Auto) 2 0-10 % Basophils (%) (Auto) 1 0-10 % Neutrophils # (Auto) 6.7 1.8-7.8 X 10^3 Lymphocytes # (Auto) 2.9 1.0-4.0 X 10^3 Monocytes # (Auto) 1.0 0.0-1.0 X 10^3 Eosinophils # (Auto) 0.3 0.0-0.3 10^3/uL Basophils # (Auto) 0.1 0.0-0.1 10^3/uL Prothrombin Time 13.6 12.2-14.7 SEC INR Comment 1.0 0.8-1.4 Activated Partial Thromboplast Time 35 24-35 SEC Sodium Level 137 135-145 MMOL/L Potassium Level 3.6 3.6-5.0 MMOL/L Chloride Level 102 98-107 MMOL/L Carbon Dioxide Level 27 21-32 MMOL/L Anion Gap 8 5-14 MMOL/L Blood Urea Nitrogen 16 7-18 MG/DL Creatinine 0.84 0.60-1.30 MG/DL Estimat Glomerular Filtration Rate > 60 BUN/Creatinine Ratio 19 Glucose Level 115 H 70-105 MG/DL Lactic Acid Level 1.59 0.50-2.00 MMOL/L Calcium Level 9.5 8.5-10.1 MG/DL Total Bilirubin 0.4 0.1-1.0 MG/DL Aspartate Amino Transf (AST/SGOT) 16 5-34 U/L Alanine Aminotransferase (ALT/SGPT) 17 0-55 U/L Alkaline Phosphatase 113 40-136 U/L Troponin I < 0.30 <0.30 NG/ML B-Type Natriuretic Peptide 19.4 <100.0 PG/ML Total Protein 7.8 6.4-8.2 GM/DL Albumin 3.8 3.2-4.5 GM/DL Amylase Level 29 25-125 U/L Lipase < 4 L 8-78 U/L Serum Alcohol < 10 <10 MG/DL Urine Color KARLEY H Urine Clarity VERY CLOUDY H Urine pH 6 5-9 Urine Specific [place] 1.025 H 1.016-1.022 Urine Protein 3+ H NEGATIVE Urine Glucose (UA) NEGATIVE NEGATIVE Urine Ketones 1+ H NEGATIVE Urine Nitrite POSITIVE H NEGATIVE Urine Bilirubin NEGATIVE NEGATIVE Urine Urobilinogen 1 NORMAL MG/DL Urine Leukocyte Esterase 1+ H NEGATIVE Urine RBC (Auto) 1+ H NEGATIVE Urine RBC 0-2 /HPF Urine WBC 10-25 H /HPF Urine Crystals NONE /LPF Urine Bacteria LARGE H /HPF Urine Casts NONE /LPF Urine Mucus NEGATIVE /LPF Urine Culture Indicated YES Urine Opiates Screen POSITIVE H NEGATIVE Urine Oxycodone Screen POSITIVE H NEGATIVE Urine Methadone Screen NEGATIVE NEGATIVE Urine Propoxyphene Screen NEGATIVE NEGATIVE Urine Barbiturates Screen NEGATIVE NEGATIVE Ur Tricyclic Antidepressants Screen NEGATIVE NEGATIVE Urine Phencyclidine Screen NEGATIVE NEGATIVE Urine Amphetamines Screen NEGATIVE NEGATIVE Urine Methamphetamines Screen NEGATIVE NEGATIVE Urine Benzodiazepines Screen NEGATIVE NEGATIVE Urine Cocaine Screen NEGATIVE NEGATIVE Urine Cannabinoids Screen POSITIVE H NEGATIVE Glucometer 49 *L 68 L 70-110 MG/DL Test 03/05/18 22:37 03/05/18 23:23 03/06/18 06:05 03/06/18 10:54 Range/Units Glucometer 130 H 187 H 156 H 114 H 70-110 MG/DL White Blood Count 8.9 4.3-11.0 10^3/uL Red Blood Count 5.21 4.35-5.85 10^6/uL Hemoglobin 14.6 13.3-17.7 G/DL Hematocrit 45 40-54 % Mean Corpuscular Volume 86 80-99 FL Mean Corpuscular Hemoglobin 28 25-34 PG Mean Corpuscular Hemoglobin Concent 33 32-36 G/DL Red Cell Distribution Width 13.4 10.0-14.5 % Platelet Count 166 130-400 10^3/uL Mean Platelet Volume 9.9 7.4-10.4 FL Neutrophils (%) (Auto) 67 42-75 % Lymphocytes (%) (Auto) 20 12-44 % Monocytes (%) (Auto) 10 0-12 % Eosinophils (%) (Auto) 3 0-10 % Basophils (%) (Auto) 0 0-10 % Neutrophils # (Auto) 6.0 1.8-7.8 X 10^3 Lymphocytes # (Auto) 1.8 1.0-4.0 X 10^3 Monocytes # (Auto) 0.9 0.0-1.0 X 10^3 Eosinophils # (Auto) 0.2 0.0-0.3 10^3/uL Basophils # (Auto) 0.0 0.0-0.1 10^3/uL Sodium Level 137 135-145 MMOL/L Potassium Level 4.0 3.6-5.0 MMOL/L Chloride Level 104 98-107 MMOL/L Carbon Dioxide Level 26 21-32 MMOL/L Anion Gap 7 5-14 MMOL/L Blood Urea Nitrogen 12 7-18 MG/DL Creatinine 0.73 0.60-1.30 MG/DL Estimat Glomerular Filtration Rate > 60 BUN/Creatinine Ratio 16 Glucose Level 169 H 70-105 MG/DL Calcium Level 9.2 8.5-10.1 MG/DL Total Bilirubin 0.3 0.1-1.0 MG/DL Aspartate Amino Transf (AST/SGOT) 13 5-34 U/L Alanine Aminotransferase (ALT/SGPT) 14 0-55 U/L Alkaline Phosphatase 96 40-136 U/L Total Protein 6.8 6.4-8.2 GM/DL Albumin 3.3 3.2-4.5 GM/DL Test 03/06/18 16:07 03/06/18 21:14 03/07/18 05:04 Range/Units Glucometer 137 H 171 H 109 70-110 MG/DL Radiology Reviewed CXR 03/05/[address] abdomen/pelvis 03/05/18: IMPRESSION: There is air present within the urinary bladder that could be from instrumentation versus gas producing cystitis. Discharge Instructions to patient/family Please see electronic discharge instructions given to patient. Discharge Medications Reviewed and agree with Discharge Medication list on patient's Discharge Instruction sheet Clinical Quality Measures DVT/VTE Risk/Contraindication: Risk Factor Score Per Nursin RFS Level Per Nursing on Admit: 4+=Very High Copy Copies To 1: JOSE Esparza BETHANY N MD Mar 07, 2018 9:26 am
[2018-03-07 10:30] VITALS: BP 120/80
== END 2018-03-07 10:30 | disposition home or self-care (01) | DRG 690 ==
LOC: EDUNIT# 18:06 → ER 18:08 → 4TH 21:16
PROVIDERS: ADMIT Family Medicine; ATTEND Family Medicine
DX: N30.00 Acute cystitis without hematuria (principal); E11.51 Type 2 diabetes mellitus with diabetic peripheral angiopathy without gangrene; I10 Essential (primary) hypertension; E78.5 Hyperlipidemia, unspecified; G89.29 Other chronic pain; J44.9 Chronic obstructive pulmonary disease, unspecified; I25.10 Atherosclerotic heart disease of native coronary artery without angina pectoris; F12.90 Cannabis use, unspecified, uncomplicated; F17.210 Nicotine dependence, cigarettes, uncomplicated; Z89.511 Acquired absence of right leg below knee; Z89.422 Acquired absence of other left toe(s); Z79.4 Long term (current) use of insulin
CPT/HCPCS: 36415; 71046; 74177; 80053; 80306; 80320; 81000; 82150; 82962; 83605; 83690; 83880; 84484; 85025; 85610; 85730; 87040; 87077; 87088; 87186; 93005; 93041; 96374

== ENCOUNTER 2018-06-29 10:53 | Inpatient (IN) | payer MEDICARE ==
[~2018-06-29] VITALS: Ht 193 cm; Wt 161.8 kg
[~2018-06-29 10:53] MED LIST changes: +CIPR-225 PO; +GABA600T2 PO; +INSU100I10 SC; +LOSA50TA36 PO; +OXYC15TA73 PO; +PANT40TA3 PO; +RT-ALBUINH INH
--- NOTE | 2018-06-29 11:21 | ED Lower Extremity ---
General Stated Complaint: LEFT FOOT PAIN Source: patient Exam Limitations: no limitations History of Present Illness Date Seen by Provider: Jun 29, 2018 Time Seen by Provider: 11:16 Initial Comments 53-year-old obese diabetic white male smoker presents to ER with left lower extremity pain for 2-3 days. This was first noticed when he was camping out at [facility] a few days ago. He noticed a blister to the lateral aspect of the foot. He does not recall any injury. He noticed a very foul smell and thought something was inside of his hand. He then took his shoe off and realized that the odor was coming from his foot. Hes had prior amputation of the first through third toes left foot and prior right below the knee amputation. He denies fevers or chills but states that he has not been feeling well since yesterday. Onset: just prior to arrival Severity: moderate Pain/Injury Location: left foot Method of Injury: fell Modifying Factors: Worse With Movement Allergies and Home Medications Allergies Coded Allergies: pregabalin (Unverified Allergy, Severe, FEVER, 04/26/15) Home Medications Albuterol Sulfate 1 Puff Puff, 2 PUFF INH Q4H PRN for SHORTNESS OF BREATH, ( Reported) Ciprofloxacin HCl 500 Mg Tablet, 500 MG PO BID Prescribed by: CATY SIEGEL on 03/07/18 0923 Gabapentin 600 Mg Tablet, 600 MG PO TID, (Reported) Hydrocodone/Acetaminophen 1 Each Tablet, 1 TAB PO TID, (Reported) Ibuprofen 600 Mg Tablet, 600 MG PO BID, (Reported) Losartan Potassium 50 Mg Tablet, 50 MG PO DAILY PRN for HIGH BLOOD PRESSURE, ( Reported) LAST FILLED #90 11-06-17 Oxycodone HCl 15 Mg Tab.er.12h, 15 MG PO Q12H, (Reported) Pantoprazole Sodium 40 Mg Tablet.dr, 40 MG PO DAILY PRN for HEARTBURN, (Reported ) LAST FILLED #90 11-06-17 Patient Home Medication List Home Medication List Reviewed: Yes Constitutional: see HPI EENTM: see HPI Respiratory: no symptoms reported Cardiovascular: no symptoms reported Genitourinary: no symptoms reported Musculoskeletal: see HPI Skin: no symptoms reported Psychiatric/Neurological: No Symptoms Reported Past Jihpwyb-Lstquq-Oluyza Hx Patient Social History Drug of Choice: THC DAILY, HX OF METH, LSD, ECSTASY, CRACK COCAINE, MUSHROOMS- DENIES IV USE Type Used: Cigarettes Recent Foreign Travel: No Contact w/Someone Who Travel: No Recent Hopitalizations: No Immunizations Up To Date Tetanus Booster (TDap): More than 5yrs PED Vaccines UTD: Yes Date of Pneumonia Vaccine: Sep 19, 2011 Date of Influenza Vaccine: Aug 28, 2015 Seasonal Allergies Seasonal Allergies: Yes Past Medical History Surgeries: Yes (LEFT BUTTOCK ABCESS, RT BKA, 2 TOES AMPUTATED ON LT FOOT) Amputation, Orthopedic Respiratory: Yes Sleep Apnea, COPD Currently Using CPAP: No Currently Using BIPAP: No Cardiac: Yes Chronic Edema/Swelling, Coronary Artery Disease, High Cholesterol, Hypertension , Peripheral Vascular Neurological: No Neuropathy Reproductive Disorders: No Genitourinary: No Gastrointestinal: Yes Gastroesophageal Reflux, Hiatal Hernia Musculoskeletal: Yes (OSTEOMYELITIS) Amputee, Arthritis, Chronic Back Pain Endocrine: Yes Diabetes, Insulin dep HEENT: Yes Loss of Vision: Denies Hearing Impairment: Denies Cancer: No Psychosocial: No Integumentary: Yes ( OSTEOMYELITIS, DIABETIC FOOT ULCERS) Blood Disorders: No Adverse Reaction/Blood Tranf: No Family Medical History Cardiovascular disease 19 FATHER ( heart attack) G8 BROTHER Diabetes mellitus 19 MOTHER ( complications diabetes) Psychosocial problem G8 BROTHER (in jail) Heart Disease, Diabetes Physical Exam Vital Signs Vital Signs - First Documented 06/29/18 11:01 Temp 98.2 Pulse 77 Resp 18 B/P (MAP) 127/96 (106) O2 Delivery Room Air Capillary Refill : Height, Weight, BMI Height: 6'4.00" Weight: 364lbs. 3.0oz. [id number]; 44.3 BMI Method:Stated General Appearance: WD/WN, no apparent distress HEENT: PERRL/EOMI, normal ENT inspection Neck: non-tender, full range of motion Respiratory: no respiratory distress, no accessory muscle use Hips: bilateral hip non-tender, bilateral hip normal inspection, bilateral hip normal range of motion Legs: bilateral leg non-tender, bilateral leg normal inspection, bilateral leg normal range of motion Knees: bilateral knee non-tender, bilateral knee normal inspection, bilateral knee normal range of motion Ankles: bilateral ankle non-tender, bilateral ankle normal inspection, bilateral ankle normal range of motion Feet: left foot soft tissue tenderness, left foot other (large ruptured bulla with serosanguinous drainage plantar lateral surface of left foot. Terribly foul odor from the wound. ) Neurologic/Psychiatric: alert, normal mood/affect, oriented x 3 Skin: normal color, warm/dry Progress/Results/Core Measures Results/Orders Lab Results Laboratory Tests Test 06/29/18 11:09 Range/Units White Blood Count 14.0 H 4.3-11.0 10^3/uL Red Blood Count 5.52 4.35-5.85 10^6/uL Hemoglobin 15.9 13.3-17.7 G/DL Hematocrit 48 40-54 % Mean Corpuscular Volume 87 80-99 FL Mean Corpuscular Hemoglobin 29 25-34 PG Mean Corpuscular Hemoglobin Concent 33 32-36 G/DL Red Cell Distribution Width 14.5 10.0-14.5 % Platelet Count 199 130-400 10^3/uL Mean Platelet Volume 10.0 7.4-10.4 FL Neutrophils (%) (Auto) 72 42-75 % Lymphocytes (%) (Auto) 18 12-44 % Monocytes (%) (Auto) 8 0-12 % Eosinophils (%) (Auto) 2 0-10 % Basophils (%) (Auto) 0 0-10 % Neutrophils # (Auto) 10.0 H 1.8-7.8 X 10^3 Lymphocytes # (Auto) 2.6 1.0-4.0 X 10^3 Monocytes # (Auto) 1.2 H 0.0-1.0 X 10^3 Eosinophils # (Auto) 0.2 0.0-0.3 10^3/uL Basophils # (Auto) 0.0 0.0-0.1 10^3/uL Neutrophils % (Manual) 78 % Lymphocytes % (Manual) 16 % Monocytes % (Manual) 6 % Spherocytes SLIGHT Erythrocyte Sedimentation Rate 2 0-30 MM/HR Sodium Level 138 135-145 MMOL/L Potassium Level 3.8 3.6-5.0 MMOL/L Chloride Level 102 98-107 MMOL/L Carbon Dioxide Level 25 21-32 MMOL/L Anion Gap 11 5-14 MMOL/L Blood Urea Nitrogen 10 7-18 MG/DL Creatinine 0.83 0.60-1.30 MG/DL Estimat Glomerular Filtration Rate > 60 BUN/Creatinine Ratio 12 Glucose Level 131 H 70-105 MG/DL Calcium Level 9.2 8.5-10.1 MG/DL Corrected Calcium 9.4 8.5-10.1 MG/DL Total Bilirubin 0.8 0.1-1.0 MG/DL Aspartate Amino Transf (AST/SGOT) 11 5-34 U/L Alanine Aminotransferase (ALT/SGPT) 15 0-55 U/L Alkaline Phosphatase 117 40-136 U/L Total Protein 7.5 6.4-8.2 GM/DL Albumin 3.7 3.2-4.5 GM/DL My Orders Orders - ANGEL FELIZ APRN Erythrocyte Sedimentation Rate (06/29/18 11:12) Cbc With Automated Diff (06/29/18 11:12) Comprehensive Metabolic Panel (06/29/18 11:12) Blood Culture (06/29/18 11:12) Iv Heplock-Insert (Order) (06/29/18 11:12) Wound Culture (06/29/18 11:12) Foot, Left, 3 Views (06/29/18 11:12) Manual Differential (06/29/18 11:09) Piperacillin Sodium/Tazobactam (Zosyn Vi (06/29/18 12:15) Vital Signs/I&O 06/29/18 11:01 Temp 98.2 Pulse 77 Resp 18 B/P (MAP) 127/96 (106) O2 Delivery Room Air Diagnostic Imaging Comments NAME: KAITLIN CHOE [facility] REC#: [id number] PT STATUS: REG ER : 1965 PHYSICIAN: ANGEL FELIZ APRN ADMIT DATE: 06/29/18/ER Draft Date of Exam:06/29/18 FOOT, LEFT, 3 VIEWS Indication: Diabetes, foot ulcer, infection COMPARISON: 11/11/2015 FINDINGS: 3 views of the left foot demonstrate chronic amputation of the first metatarsal and second phalanx. There is a chronic destructive changes of the third metatarsophalangeal joint. There is no acute fracture or dislocation or radiographic evidence of osteomyelitis. There is no foreign body or soft tissue gas. Impression: 1. 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 2. No radiographic evidence of acute fracture or osteomyelitis or soft tissue foreign body. Dictated on workstation # [id number] Dict: 06/29/18 1155 Trans: 06/29/18 1212 [facility] [id number] Interpreted by: NIGEL PAULA Electronically signed by: Departure Communication (Admissions) Time/Spoke to Admitting Phy: 12:[address] Ledesma. We'll admit the patient on Zosyn and vancomycin, consult to Dr. Rodriguez for peripheral vascular evaluation. Time/Spoke to Consulting Phy: 12:[address] Rodriguez. Would like arterial ultrasound bilateral lower extremities today and he will consult. Impression Primary Impression: infected ulcer left foot Additional Impressions: IDDM (insulin dependent diabetes mellitus) Peripheral vascular disease Disposition: ADMITTED INPATIENT Condition: Stable Admissions Decision to Admit Reason: Admit from ER (General) Decision to Admit/Date: Jun 29, 2018 Time/Decision to Admit Time: 12:12 Transfer Time Spoke to Accepting Phy: 12:12 Departure-Patient Inst. Referrals: KAREN LYNN APRN (PCP/Family) Primary Care Physician ANGEL FELIZ APRN Jun 29, 2018 11:21
[2018-06-29 11:23] LABS: BASOPHILS % (AUTO) 0 % (0-10); EOSINOPHILS # (AUTO) 0.2 10^3/uL (0.0-0.3); EOSINOPHILS % (AUTO) 2 % (0-10); HEMATOCRIT 48 % (40-54); HEMOGLOBIN 15.9 G/DL (13.3-17.7); LYMPHOCYTES # (AUTO) 2.6 X 10^3 (1.0-4.0); LYMPHOCYTES % (AUTO) 18 % (12-44); MEAN CORPUSCULAR HEMOGLOBIN 29 PG (25-34); MEAN CORPUSCULAR HGB CONC 33 G/DL (32-36); MEAN CORPUSCULAR VOLUME 87 FL (80-99); MONOCYTES # (AUTO) 1.2 X 10^3 (0.0-1.0); MONOCYTES % (AUTO) 8 % (0-12); NEUTROPHILS % (AUTO) 72 % (42-75); PLATELET COUNT 199 10^3/uL (130-400); RED BLOOD COUNT 5.52 10^6/uL (4.35-5.85); RED CELL DISTRIBUTION WIDTH 14.5 % (10.0-14.5)
[2018-06-29 11:42] LABS: ALANINE AMINOTRANSFERASE 15 U/L (0-55); ALBUMIN 3.7 GM/DL (3.2-4.5); ALKALINE PHOSPHATASE 117 U/L (40-136); BILIRUBIN,TOTAL 0.8 MG/DL (0.1-1.0); BUN/CREATININE RATIO 12; CALCIUM 9.2 MG/DL (8.5-10.1); CARBON DIOXIDE 25 MMOL/L (21-32); CHLORIDE 102 MMOL/L (98-107); CREATININE SERUM 0.83 MG/DL (0.60-1.30); GFR ESTIMATED > 60; GLUCOSE 131 MG/DL (70-105); POTASSIUM 3.8 MMOL/L (3.6-5.0); SODIUM 138 MMOL/L (135-145); TOTAL PROTEIN 7.5 GM/DL (6.4-8.2)
[2018-06-29 11:51] LABS: ERYTHROCYTE SEDIMENTATION RATE 2 MM/HR (0-30); LYMPHOCYTES % (MANUAL) 16 %; MONOCYTES % (MANUAL) 6 %; NEUTROPHILS % (MANUAL) 78 %; SPHEROCYTES SLIGHT
--- NOTE | 2018-06-29 12:12 | Diagnostic Imaging Report ---
Indication: Diabetes, foot ulcer, infection COMPARISON: 11/11/2015 FINDINGS: 3 views of the left foot demonstrate chronic amputation of the first metatarsal and second phalanx. There is a chronic destructive changes of the third metatarsophalangeal joint. There is no acute fracture or dislocation or radiographic evidence of osteomyelitis. There is no foreign body or soft tissue gas. Impression: 1. 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 2. No radiographic evidence of acute fracture or osteomyelitis or soft tissue foreign body. Dictated by: Dictated on workstation # [id number]
[2018-06-29] MEDS ORDERED: PIPERACILLIN SODIUM/TAZOBACTAM 4.5 GM in D5W 100 ML IVPB 100 ML IV ONE (12:15)
[2018-06-29] MEDS ORDERED: INSU100I10 INJ (13:24)
[2018-06-29] MEDS ORDERED: VANCOMYCIN INJECTION 2,500 MG in NS IV 500 ML 500 ML IV NR (13:28)
[2018-06-29] MEDS ORDERED: CATHETER FLUSH 10 ML SYR IV PRN (13:45)
[2018-06-29] MEDS: NS IV 1000 ML 1,000 ML IV SCH (13:52)
[2018-06-29] MEDS: NICOTINE 21 MG (NICODERM) PATCH TD SCH (13:52)
[2018-06-29] MEDS: CATHETER FLUSH 10 ML SYR IV SCH ×2 (13:53→22:01)
--- NOTE | 2018-06-29 15:29 | Vascular Consult ---
HPI-Cardiology Cardiology Consultation: Date of Consultation 06/29/18 Date of Admission Attending Physician Daly Ledesma MD Admitting Physician Domenico Abdalla Aprn Consulting Physician Jaleesa RODRIGUEZ MD HPI: Time Seen by Provider: 12:30 Chief Complaint: Nonhealing left lower extremity ulcer This is a 53-year-old gentleman with history of diabetes, hypertension, active smoking, multiple amputation in the past who presents with a foul-smelling lateral left foot ulcer. His had right below the knee amputation on 08/2014. Left-sided toe amputations on 02/2014. According to the patient also developed on . He denies any significant leg pain. However the patient because of below the knee amputation is not very functional. He denies any other cardiac symptoms. Review of Systems-Cardiology Review of Systems Constitutional: As described under HPI; No As described under HPI, No no symptoms reported, No chills, No fever, No lightheadedness Eyes: No As described under HPI, No no symptoms reported, No blindness, No blurred vision, No contact lenses, No drainage, No decreased acuity, No foreign body sensation, No pain, No vision change Ears/Nose/Throat: No As described under HPI, No no symptoms reported, No chronic hearing loss, No ear discharge, No ear pain, No nasal drainage, No ulcerations Respiratory: No no symptoms reported; As described under HPI; No As described under HPI, No cough, No orthopnea, No shortness of breath, No SOB with excertion Cardiovascular: No no symptoms reported; As described under HPI; No As described under HPI, No chest pain, No edema, No irregular heart rate, No lightheadedness, No palpitations Gastrointestinal: No no symptoms reported, No As described under HPI, No abdomen distended, No abdominal pain, No blood streaked bowels, No constipation , No diarrhea, No nausea, No vomiting, No stool coloration changes Genitourinary: No As described under HPI, No burning, No dysuria, No discharge , No frequency, No flank pain, No hematuria, No urgency Musculoskeletal: other (right below the knee amputation. Left toe amputation.) Skin: As described under HPI; No rash; other (nonhealing ulcer on the left lateral aspect of the foot); No skin related problems, No ulcerations; ulcerations on exposed areas Psychiatric/Neurological: No anxiety, No depression, No seizure, No focal weakness, No syncope Hematologic: No bleeding abnormalities QVB-Eopzgv-Aklpjf Hx Patient Social History Alcohol Use: Rarely Uses Recreational Drug Use: Yes (THC-OCCASIONALY) Drug of Choice: THC DAILY, HX OF METH, LSD, ECSTASY, CRACK COCAINE, MUSHROOMS- DENIES IV USE Smoking Status: Current Everyday Smoker Type Used: Cigarettes 2nd Hand Smoke Exposure: Yes Recent Foreign Travel: No Recent Infectious Disease Expo: No Hospitalization with Isolation: Denies Physical Abuse Screen: No Sexual Abuse: No Immunizations Up To Date Tetanus Booster (TDap): More than 5yrs Date of Pneumonia Vaccine: Sep 19, 2011 Date of Influenza Vaccine: Aug 28, 2015 Past Medical History PMH As described under Assessment. Family Medical History Family History: Cardiovascular disease 19 FATHER ( heart attack) G8 BROTHER Diabetes mellitus 19 MOTHER ( complications diabetes) Psychosocial problem G8 BROTHER (in [facility]) Allergies and Home Medications Allergies Coded Allergies: pregabalin (Unverified Allergy, Severe, FEVER, 04/26/15) Home Medications Albuterol Sulfate 1 Puff Puff, 2 PUFF INH Q4H PRN for SHORTNESS OF BREATH, ( Reported) Gabapentin 600 Mg Tablet, 600 MG PO TID, (Reported) Ibuprofen 600 Mg Tablet, 600 MG PO BID, (Reported) Insulin Glargine,Hum.rec.anlog 100 Unit/1 Ml Insuln.pen, 55 UNITS INJ 6am and 6pm, (Reported) Losartan Potassium 50 Mg Tablet, 50 MG PO DAILY PRN for HIGH BLOOD PRESSURE, ( Reported) LAST FILLED #90 11-06-17 Pantoprazole Sodium 40 Mg Tablet.dr, 40 MG PO DAILY PRN for HEARTBURN, (Reported ) LAST FILLED #90 11-06-17 Patient Home Medication List Home Medication List Reviewed: Yes Physical Exam-Cardiology Physical Exam Vital Signs/I&O 06/29/18 06/29/18 11:01 12:45 Temp 98.2 98.6 Pulse 77 80 Resp 18 12 B/P (MAP) 127/96 (106) 125/95 Pulse Ox 99 O2 Delivery Room Air Room Air Capillary Refill : Greater Than 3 Seconds Constitutional: appears stated age, AAO x 3; No apparent distress; well- developed, well-nourished HEENT: PERRL; No normal ENT inspection, No TMs normal, No pharynx normal, No scleral icterus (R), No scleral icterus (L), No pale conjunctivae (R), No pale conjunctivae (L), No photophobia, No TM abnormal (R), No TM abnormal (L), No pharyngeal erythema, No tonsillar exudate, No other, No discharge, No EOMI; hearing is well preserved; No hard of hearing; oral hygience is good; No ulceration, No xanthelasmas are seen Neck: No carotid bruit; carotid pulses are 2 + bilaterally Respiratory: No accessory muscle use, No respiratory distress, No chest tender , No chest expansion is symmetric; chest is bilaterally symmetric; No lungs clear to percussion; lungs clear to auscultation; No crackles, No rhonchi, No rales, No stridor, No wheezing, No pleural rub, No other Cardiovascular: regular rate-rhythm; No irregularly irregular, No extra beats, No parasternal heave is noted, No JVD, No edema, No bradycardia, No tachycardia , No point of maximal impulse, No cardiac thrills are palpable; S1 and S2; No gallop/S3, No gallop/S4, No diastolic murmur, No systolic murmur, No friction rub, No click, No other Gastrointestinal: No tender, No soft, No round, No distended, No pulsatile mass , No organomegaly, No guarding, No rebound, No tenderness, No hernia, No mass, No audible bowel sounds, No abnormal bowel sounds, No abdominal bruits, No spleenomegaly, No other Rectal: deferred Extremities: No normal range of motion, No non-tender, No normal inspection, No pedal edema, No calf tenderness, No normal capillary refill, No pelvis stable , No calf tenderness, No inflammation, No pedal edema, No slow capillary refill , No swelling; other (right below-knee amputation); No abrasion, No clubbing, No cyanosis, No ecchymosis, No laceration, No no lower extremity edema bilateral , No significant edema, No tenderness; wound (nonhealing ulcer lateral aspect of the left foot) Neurologic/Psychiatric: alert, oriented x 3, power is 5/5 both on sides Skin: No normal color, No warm/dry, No cyanosis, No cool, No diaphoresis, No damp, No ecchymosis, No jaundice, No mottled, No pallor, No rash, No tattoos/ piercings, No ulcerations, No rash on exposed areas, No ulcerations on exposed areas, No other Data Review Labs Laboratory Tests 06/29/18 11:09: White Blood Count 14.0H, Red Blood Count 5.52, Hemoglobin 15.9, Hematocrit 48, Mean Corpuscular Volume 87, Mean Corpuscular Hemoglobin 29, Mean Corpuscular Hemoglobin Concent 33, Red Cell Distribution Width 14.5, Platelet Count 199, Mean Platelet Volume 10.0, Neutrophils (%) (Auto) 72, Lymphocytes (%) (Auto) 18 , Monocytes (%) (Auto) 8, Eosinophils (%) (Auto) 2, Basophils (%) (Auto) 0, Neutrophils # (Auto) 10.0H, Lymphocytes # (Auto) 2.6, Monocytes # (Auto) 1.2H, Eosinophils # (Auto) 0.2, Basophils # (Auto) 0.0, Neutrophils % (Manual) 78, Lymphocytes % (Manual) 16, Monocytes % (Manual) 6, Spherocytes SLIGHT, Erythrocyte Sedimentation Rate 2, Sodium Level 138, Potassium Level 3.8, Chloride Level 102, Carbon Dioxide Level 25, Anion Gap 11, Blood Urea Nitrogen 10, Creatinine 0.83, Estimat Glomerular Filtration Rate > 60, BUN/Creatinine Ratio 12, Glucose Level 131H, Calcium Level 9.2, Corrected Calcium 9.4, Total Bilirubin 0.8, Aspartate Amino Transf (AST/SGOT) 11, Alanine Aminotransferase ( ALT/SGPT) 15, Alkaline Phosphatase 117, Total Protein 7.5, Albumin 3.7 A/P-Cardiology Assessment/Admission Diagnosis Nonhealing ulcer left lower extremity, History of right below the knee amputation, diabetes, Hypertension, Active smoking Plan Diabetic ulcer with infection. On broad-spectrum antibiotics. Likely osteomyelitis. Rule out critical limb ischemia with lower extremity arterial ultrasound. If severe disease in left lower extremity will schedule peripheral angiography tomorrow. If significant PAD, aspirin, Plavix, statin. Smoking cessation was strongly recommended. Continue current treatment for diabetes and hypertension. Thank you for your consultation. Please call me if you have any questions. Silvia Rodriguez MD, FACP, FACC, FSCAI, FHRS, CCDS Interventional Cardiology Cardiac Electrophysiology Vascular Medicine and Endovascular Interventions Clinical Quality Measures DVT/VTE Risk/Contraindication: Risk Factor Score Per Nursin RFS Level Per Nursing on Admit: 4+=Very High Jaleesa RODRIGUEZ MD Jun 29, 2018 3:29 pm
[2018-06-29 15:50] VITALS: BP 143/80
[2018-06-29] MEDS: inSUlin ASPART (NovoLOG) 1 UNIT/0.01 ML (CHARGE PER UNIT) SC SCH ×2 (15:57→20:53)
[2018-06-29] MEDS: PIPERACILLIN/TAZO 4.5 GM/D5W 100 ML IV SCH ×2 (18:00)
--- NOTE | 2018-06-29 19:25 | Diagnostic Imaging Report ---
PROCEDURE: US Bilateral lower extremity arterial. TECHNIQUE: Multiple real-time grayscale images are obtained through both lower extremity arterial systems with color Doppler imaging and color Doppler spectral analysis. INDICATION: Lower extremity ulceration. COMPARISON: Study of 11/07/2015. FINDINGS: There is a right below knee amputation. Triphasic arterial flow is seen in the right common femoral artery and proximal superficial femoral artery with biphasic arterial flow within the remainder of the superficial femoral artery and right popliteal artery. There is focal velocity elevation in the left common femoral artery reaching 241 cm/s indicating high-grade stenosis and possible occlusion near the origin of the superficial femoral artery. Monophasic arterial runoff is seen within the remainder of the left superficial femoral artery with elevated flow velocity in the distal left superficial femoral artery reaching 211 cm/s. Monophasic flow is seen within the popliteal, posterior tibial and dorsalis pedis arteries at the level of the ankle. IMPRESSION: No significant stenosis is seen in the remaining portions of the right lower extremity. High-grade stenosis is suspected in the distal left common femoral artery and distal left superficial femoral artery with monophasic arterial runoff to the left foot via posterior tibial and dorsalis pedis arteries. Dictated by: Dictated on workstation # [id number]
--- NOTE | 2018-06-29 19:38 | Wound Care Assessment ---
Wound Care Assessment Date Seen by Provider: Jun 29, 2018 Time Seen by Provider: 19:32 Chief Complaint L plantar foot ulcer. HPI The patient is a 53 year old male diabetic with new onset of ulcer of L plantar foot. Has not been checking blood glucose levels this summer, because he has been camping. He smokes. He has had a R BKA for non-healing DFU. He is to receive arterial evaluation/intervention per Dr. Rodriguez tomorrow. He is informed that if he does not control his blood glucose levels and quit smoking going forward he will lose his L leg also. The outcome is up to him. Past Medical History: Admits Diabetes Type II, Admits Peripheral Artery Disease Smoking Status: Current Everyday Smoker Recreational Drug Use: Yes (THC-OCCASIONALY) Alcohol Use: Rarely Uses Review of Systems Pulmonary: No Dyspnea Cardiovascular: No: Chest Pain Musculoskeletal: No: leg pain Exam Vital Signs Date Time Temp Pulse Resp B/P (MAP) Pulse Ox O2 Delivery O2 Flow Rate FiO2 06/29/18 15:50 97.0 60 20 143/80 (101) 96 Room Air Capillary Refill : Greater Than 3 Seconds General Appearance: no apparent distress Skin: other (L plantar foot -- 8.0 x 6.1 x 0.2 cm, ruptured blister with central dusky tissue, loosecallus of blister removed sharply. Findings consistent with a thermal burn -- Walking bare foot on hot pavement.) Results Laboratory Tests 06/29/18 11:09: White Blood Count 14.0H, Red Blood Count 5.52, Hemoglobin 15.9, Hematocrit 48, Mean Corpuscular Volume 87, Mean Corpuscular Hemoglobin 29, Mean Corpuscular Hemoglobin Concent 33, Red Cell Distribution Width 14.5, Platelet Count 199, Mean Platelet Volume 10.0, Neutrophils (%) (Auto) 72, Lymphocytes (%) (Auto) 18 , Monocytes (%) (Auto) 8, Eosinophils (%) (Auto) 2, Basophils (%) (Auto) 0, Neutrophils # (Auto) 10.0H, Lymphocytes # (Auto) 2.6, Monocytes # (Auto) 1.2H, Eosinophils # (Auto) 0.2, Basophils # (Auto) 0.0, Neutrophils % (Manual) 78, Lymphocytes % (Manual) 16, Monocytes % (Manual) 6, Spherocytes SLIGHT, Erythrocyte Sedimentation Rate 2, Sodium Level 138, Potassium Level 3.8, Chloride Level 102, Carbon Dioxide Level 25, Anion Gap 11, Blood Urea Nitrogen 10, Creatinine 0.83, Estimat Glomerular Filtration Rate > 60, BUN/Creatinine Ratio 12, Glucose Level 131H, Calcium Level 9.2, Corrected Calcium 9.4, Total Bilirubin 0.8, Aspartate Amino Transf (AST/SGOT) 11, Alanine Aminotransferase ( ALT/SGPT) 15, Alkaline Phosphatase 117, Total Protein 7.5, Albumin 3.7 06/29/18 15:56: Glucometer 110 Microbiology 06/29/18 Gram Stain, Resulted Pending 06/29/18 Wound Culture - Preliminary, Resulted Sent To [facility] Microbiology 06/29/18 Gram Stain, Resulted Pending 06/29/18 Wound Culture - Preliminary, Resulted Sent To [facility] Assessment/Plan/Dx 1. Diabetic foot ulcer, L plantar foot, Correia Grade 2, consistent with thermal injury. The central portion of the wound is of indeterminant viability. 2. Peripheral arterial disease. 3. Diabetic polyneuropathy, with loss of protective sensation. 4. Diabetes with chronic hyperglycemia. 5. Tobacco abuse. Plan: Will dress with Xeroform. Await arteriogram/angioplasty results. Needs Diabetic Nurse Educator instruction. DAGO MARIEE MD Jun 29, 2018 19:38
[2018-06-29 20:00] VITALS: BP 144/69
[2018-06-29] MEDS ORDERED: PANTOPRAZOLE 40 MG (PROTONIX) TAB PO PRN (20:00)
[2018-06-29] MEDS ORDERED: NON-FORMULARY MEDICATION 1 EA EA (Losartan Potassium 50 MG) PO PRN (20:00)
--- NOTE | 2018-06-29 20:08 | History & Physicial (CHS) ---
HPI History of Present Illness: 53 yo M with h/o multiple amputations including R BKA that presented with left foot wound. Patient states that he was out camping and smelled something in his truck and did not realize that he had a wound on his foot. Previously has had osteomyelitis several times which is why he presented to ER. States that he noticed the wound today. + foul smell and drainage from wound. Denies any fever or chills. States that he has been on insulin for 15 years and he does not really take his blood sugars very often so he is not sure what they have been running. + pain in left foot. h/o severe neuropathy in left foot. Source: patient Exam Limitations: no limitations Date seen by provider: Jun 29, 2018 Time Seen by Provider: 14:30 Attending Physician Daly Ledesma MD PCP Domenico Abdalla Aprn Consult Date of Admission Jun 29, 2018 at 12:10 Home Medications Home Medications Reviewed patient Home Medication Reconciliation performed by pharmacy medication reconciliations certified pharmacy technician and/or nursing. Patients Allergies have been reviewed. Allergies Coded Allergies: pregabalin (Unverified Allergy, Severe, FEVER, 04/26/15) [id number] Hx Patient Social History Alcohol Use: Rarely Uses Recreational Drug Use: Yes (THC-OCCASIONALY) Drug of Choice: E.D. REPORT: HX OF METH, LSD,ECSTASY,CRACK COCAINE, MUSHROOMS Smoking Status: Current Everyday Smoker Type Used: Cigarettes 2nd Hand Smoke Exposure: Yes Recent Foreign Travel: No Contact w/other who traveled: No Recent Hopitalizations: No Recent Infectious Disease Expo: No Physical Abuse Screen: No Sexual Abuse: No Immunizations Up To Date Tetanus Booster (TDap): More than 5yrs Date of Pneumonia Vaccine: Sep 19, 2011 Date of Influenza Vaccine: Aug 28, 2015 Past Medical History PMHx: Chronic pain IDDMII HTN HLD Atherosclerotic occlusive disease with R BKA SurgHx: Right BKA Left great toe, 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 Left thigh hematoma evacuation Family Medical History Significant Family History: Heart Disease, Diabetes Family History: Cardiovascular disease 19 FATHER ( heart attack) G8 BROTHER Diabetes mellitus 19 MOTHER ( complications diabetes) Psychosocial problem G8 BROTHER (in group home) Review of Systems ([facility]) Constitutional: no symptoms reported; No chills, No fever, No malaise, No weakness EENTM: no symptoms reported Respiratory: no symptoms reported; No cough, No dyspnea on exertion, No short of breath Cardiovascular: no symptoms reported; No chest pain, No edema, No palpitations Gastrointestinal: no symptoms reported; No abdominal pain, No constipation, No diarrhea, No nausea, No vomiting Genitourinary: no symptoms reported; No dysuria, No frequency, No hematuria Musculoskeletal: see HPI, other (Left foot pain) Skin: see HPI Psychiatric/Neurological: No Symptoms Reported Reviewed Test Results Reviewed Test Results Lab Laboratory Tests Test 06/29/18 11:09 06/29/18 15:56 Range/Units White Blood Count 14.0 H 4.3-11.0 10^3/uL Red Blood Count 5.52 4.35-5.85 10^6/uL Hemoglobin 15.9 13.3-17.7 G/DL Hematocrit 48 40-54 % Mean Corpuscular Volume 87 80-99 FL Mean Corpuscular Hemoglobin 29 25-34 PG Mean Corpuscular Hemoglobin Concent 33 32-36 G/DL Red Cell Distribution Width 14.5 10.0-14.5 % Platelet Count 199 130-400 10^3/uL Mean Platelet Volume 10.0 7.4-10.4 FL Neutrophils (%) (Auto) 72 42-75 % Lymphocytes (%) (Auto) 18 12-44 % Monocytes (%) (Auto) 8 0-12 % Eosinophils (%) (Auto) 2 0-10 % Basophils (%) (Auto) 0 0-10 % Neutrophils # (Auto) 10.0 H 1.8-7.8 X 10^3 Lymphocytes # (Auto) 2.6 1.0-4.0 X 10^3 Monocytes # (Auto) 1.2 H 0.0-1.0 X 10^3 Eosinophils # (Auto) 0.2 0.0-0.3 10^3/uL Basophils # (Auto) 0.0 0.0-0.1 10^3/uL Neutrophils % (Manual) 78 % Lymphocytes % (Manual) 16 % Monocytes % (Manual) 6 % Spherocytes SLIGHT Erythrocyte Sedimentation Rate 2 0-30 MM/HR Sodium Level 138 135-145 MMOL/L Potassium Level 3.8 3.6-5.0 MMOL/L Chloride Level 102 98-107 MMOL/L Carbon Dioxide Level 25 21-32 MMOL/L Anion Gap 11 5-14 MMOL/L Blood Urea Nitrogen 10 7-18 MG/DL Creatinine 0.83 0.60-1.30 MG/DL Estimat Glomerular Filtration Rate > 60 BUN/Creatinine Ratio 12 Glucose Level 131 H 70-105 MG/DL Calcium Level 9.2 8.5-10.1 MG/DL Corrected Calcium 9.4 8.5-10.1 MG/DL Total Bilirubin 0.8 0.1-1.0 MG/DL Aspartate Amino Transf (AST/SGOT) 11 5-34 U/L Alanine Aminotransferase (ALT/SGPT) 15 0-55 U/L Alkaline Phosphatase 117 40-136 U/L Total Protein 7.5 6.4-8.2 GM/DL Albumin 3.7 3.2-4.5 GM/DL Glucometer 110 70-110 MG/DL Radiology Date of Exam: 06/29/18 FOOT, LEFT, 3 VIEWS Indication: Diabetes, foot ulcer, infection COMPARISON: 11/11/2015 FINDINGS: 3 views of the left foot demonstrate chronic amputation of the first metatarsal and second phalanx. There is a chronic destructive changes of the third metatarsophalangeal joint. There is no acute fracture or dislocation or radiographic evidence of osteomyelitis. There is no foreign body or soft tissue gas. Impression: 1. 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 2. No radiographic evidence of acute fracture or osteomyelitis or soft tissue foreign body. Physical Exam-([facility]) Physical Exam Vital Signs VS - Last 72 Hours, by Label 06/29/18 06/29/18 06/29/18 06/29/18 11:01 12:45 12:50 15:50 Temp 98.2 98.6 97.0 Pulse 77 80 60 Resp 18 12 20 B/P (MAP) 127/96 (106) 125/95 143/80 (101) Pulse Ox 99 96 O2 Delivery Room Air Room Air Room Air Room Air Capillary Refill : Greater Than 3 Seconds General Appearance: WD/WN, no apparent distress, obese HEENT: PERRL/EOMI Neck: non-tender, full range of motion, supple Respiratory: chest non-tender, lungs clear, normal breath sounds, no respiratory distress, no accessory muscle use Cardiovascular: regular rate, rhythm, no murmur Gastrointestinal: normal bowel sounds, non tender, soft, no organomegaly Back: no CVA tenderness, no vertebral tenderness Extremities: other (Left wound plantar surface with purulent drainage and pain , no DP or posterior tib palpable pulses, h/o R BKA) Skin: other Lymphatic: no adenopathy Assessment/Plan Assessment/Plan Admission Status: Inpatient Order (span 2 midnights) Reason for Inpatient Admission: Requires IV antibioitcs and specialty care for possible LE intervention (1) Diabetic foot ulcer associated with type 2 diabetes mellitus Status: Acute Assessment & Plan: - Wound care and Cardiology consulted - Patient started on Vanc/Zosyn, culture pending but likely with have multiple organisms - Xray did not show Osteo Qualifiers: Qualified Codes: E11.621 - Type 2 diabetes mellitus with foot ulcer; L97.422 - Non-pressure chronic ulcer of left heel and midfoot with fat layer exposed (2) Peripheral vascular disease Status: Chronic Assessment & Plan: - h/o R BKA, Will have intervention tomorrow with Khalid - ASA and Plavix given today - Discussed the importance of smoking cessation (3) IDDM (insulin dependent diabetes mellitus) Status: Chronic Assessment & Plan: - A1c pending, Will decrease insulin while inpatient to Levemir 40 BID with sliding scale B (4) Hypertension Status: Chronic Assessment & Plan: - Continue home meds Qualifiers: Qualified Codes: I10 - Essential (primary) hypertension (5) Hyperlipidemia Status: Chronic Assessment & Plan: - Patient needs Statin on d/c Qualifiers: Qualified Codes: E78.2 - Mixed hyperlipidemia (6) Tobacco abuse Status: Chronic Assessment & Plan: - Discussed the need for cessation given severe PVD (7) BMI 40.0-44.9, adult Status: Chronic Clinical Quality Measures DVT/VTE Risk/Contraindication: Risk Factor Score Per Nursin RFS Level Per Nursing on Admit: 4+=Very High Copy Copies To 1: Eliane AVENDANO HOLLY R MD Jun 29, 2018 20:08
[2018-06-29] MEDS ORDERED: CLOPIDOGREL 300 MG (PLAVIX) TABLET PO ONE (20:15)
[2018-06-29] MEDS ORDERED: ASPIRIN 325 MG (5 GR) TABLET PO ONE (20:15)
[2018-06-29] MEDS: inSUlin DETERMIR 1 UNIT/0.01 ML (LEVEMIR) CHARGE PER UNIT SQ SCH (21:57)
[2018-06-29] MEDS: GABAPENTIN 600 MG (NEURONTIN) TAB PO SCH (22:00)
[2018-06-29] MEDS: HYDROcodone/APAP 5 MG/325 MG (LORTAB) TAB PO PRN (22:21)
[2018-06-29 23:50] VITALS: BP 140/63
[2018-06-30] VITALS (13 sets, daily range): BP systolic 122–154; BP diastolic 55–72
[2018-06-30] MEDS: NS IV 1000 ML 1,000 ML IV SCH ×7 (00:12→23:12)
[2018-06-30] MEDS: VANCOMYCIN 2000 MG/NS 500 ML IVPB IV SCH ×4 (01:12→15:58)
[2018-06-30] MEDS: PIPERACILLIN/TAZO 4.5 GM/D5W 100 ML IV SCH ×6 (03:59→19:11)
[2018-06-30] MEDS: CATHETER FLUSH 10 ML SYR IV SCH ×3 (05:04→20:29)
[2018-06-30] MEDS: HYDROcodone/APAP 5 MG/325 MG (LORTAB) TAB PO PRN ×2 (05:08→11:59)
[2018-06-30] MEDS: inSUlin ASPART (NovoLOG) 1 UNIT/0.01 ML (CHARGE PER UNIT) SC SCH ×4 (05:08→20:50)
[2018-06-30 05:53] LABS: BASOPHILS % (AUTO) 0 % (0-10); EOSINOPHILS # (AUTO) 0.3 10^3/uL (0.0-0.3); EOSINOPHILS % (AUTO) 2 % (0-10); HEMATOCRIT 44 % (40-54); HEMOGLOBIN 14.5 G/DL (13.3-17.7); LYMPHOCYTES # (AUTO) 1.7 X 10^3 (1.0-4.0); LYMPHOCYTES % (AUTO) 16 % (12-44); MEAN CORPUSCULAR HEMOGLOBIN 29 PG (25-34); MEAN CORPUSCULAR HGB CONC 33 G/DL (32-36); MEAN CORPUSCULAR VOLUME 88 FL (80-99); MONOCYTES # (AUTO) 0.8 X 10^3 (0.0-1.0); MONOCYTES % (AUTO) 7 % (0-12); NEUTROPHILS # (AUTO) 8.3 X 10^3 (1.8-7.8); NEUTROPHILS % (AUTO) 75 % (42-75); PLATELET COUNT 157 10^3/uL (130-400); RED BLOOD COUNT 5.06 10^6/uL (4.35-5.85); RED CELL DISTRIBUTION WIDTH 14.3 % (10.0-14.5); WHITE BLOOD COUNT 11.1 10^3/uL (4.3-11.0)
[2018-06-30 06:32] LABS: ALANINE AMINOTRANSFERASE 13 U/L (0-55); ALBUMIN 3.2 GM/DL (3.2-4.5); ALKALINE PHOSPHATASE 94 U/L (40-136); BILIRUBIN,TOTAL 0.8 MG/DL (0.1-1.0); BUN/CREATININE RATIO 16; CALCIUM 8.7 MG/DL (8.5-10.1); CARBON DIOXIDE 26 MMOL/L (21-32); CHLORIDE 106 MMOL/L (98-107); CREATININE SERUM 0.64 MG/DL (0.60-1.30); GFR ESTIMATED > 60; GLUCOSE 64 MG/DL (70-105); POTASSIUM 3.6 MMOL/L (3.6-5.0); SODIUM 139 MMOL/L (135-145); TOTAL PROTEIN 6.6 GM/DL (6.4-8.2)
[2018-06-30] MEDS: NICOTINE 21 MG (NICODERM) PATCH TD SCH (08:27)
[2018-06-30] MEDS: CLOPIDOGREL 75 MG (PLAVIX) TABLET PO SCH (08:27)
[2018-06-30] MEDS: PATCH REMOVAL TP SCH (08:27)
[2018-06-30] MEDS: GABAPENTIN 600 MG (NEURONTIN) TAB PO SCH ×3 (08:27→20:28)
[2018-06-30] MEDS: inSUlin DETERMIR 1 UNIT/0.01 ML (LEVEMIR) CHARGE PER UNIT SQ SCH ×2 (08:29→21:43)
[2018-06-30] MEDS ORDERED: ASPIRIN 81 MG CHEW (CHILDREN'S ASA) PO SCH (09:00)
[2018-06-30] MEDS ORDERED: LOSARTAN 50 MG (COZAAR) TAB PO PRN (09:00)
[2018-06-30] MEDS ORDERED: LIDOCAINE 1% INJ 20 ML 20 ML VIAL ONE (09:15)
[2018-06-30] MEDS ORDERED: MIDAZOLAM 5 MG/5 ML (VERSED) VIAL ONE (09:15)
[2018-06-30] MEDS ORDERED: NS IV 1000 ML 1,000 ML ONE (09:16)
[2018-06-30] MEDS ORDERED: fentaNYL INJECTION 100 MCG/2 ML AMP ONE (09:16)
[2018-06-30] MEDS ORDERED: HEParin (CATH LAB) 2,000 ML IV ONE (09:16)
[2018-06-30] MEDS ORDERED: HEParin 1000 UNIT/ML (10ML VIAL) FOR BOLUS ONE (10:42)
--- NOTE | 2018-06-30 11:25 | Cardiology Progress Note ---
Cardiology SOAP Progress Note Subjective: No chest pain or shortness of breath. No significant lower extremity resting discomfort. Objective: I&O/Vital Signs 06/29/18 06/30/18 06/30/18 23:50 04:02 08:00 Temp 99.7 98.3 97.4 Pulse 78 74 69 Resp B/P (MAP) 140/63 (88) 134/64 (87) 134/67 (89) Pulse Ox 94 92 94 O2 Delivery Room Air Room Air Room Air 06/30/18 00:00 Intake Total 1125 ml Output Total 700 ml Balance 425 ml Weight (Pounds): 356 Weight (Ounces): 12.8 Weight (Calculated Kilograms): [id number] Constitutional: appears stated age, AAO x 3; No apparent distress; well- developed, well-nourished Respiratory: No accessory muscle use, No respiratory distress, No chest tender , No chest expansion is symmetric; chest is bilaterally symmetric; No lungs clear to percussion; lungs clear to auscultation; No crackles, No rhonchi, No rales, No stridor, No wheezing, No pleural rub, No other Cardiovascular: regular rate-rhythm; No irregularly irregular, No extra beats, No parasternal heave is noted, No JVD, No edema, No bradycardia, No tachycardia , No point of maximal impulse, No cardiac thrills are palpable; S1 and S2; No gallop/S3, No gallop/S4, No diastolic murmur, No systolic murmur, No friction rub, No click, No other Gastrointestional: No tender, No soft, No round, No distended, No pulsatile mass, No organomegaly, No guarding, No rebound, No tenderness, No hernia, No mass, No audible bowel sounds, No abnormal bowel sounds, No abdominal bruits, No spleenomegaly, No other Extremities: No normal range of motion, No non-tender, No normal inspection, No pedal edema, No calf tenderness, No normal capillary refill, No pelvis stable , No calf tenderness, No inflammation, No pedal edema, No slow capillary refill , No swelling; other (right below-knee amputation); No abrasion, No clubbing, No cyanosis, No ecchymosis, No laceration, No no lower extremity edema bilateral , No significant edema, No tenderness; wound (nonhealing ulcer lateral aspect of the left foot) Neurologic/Psychiatric: alert, oriented x 3, power is 5/5 both on sides Skin: No normal color, No warm/dry, No cyanosis, No cool, No diaphoresis, No damp, No ecchymosis, No jaundice, No mottled, No pallor, No rash, No tattoos/ piercings, No ulcerations, No rash on exposed areas, No ulcerations on exposed areas, No other Results/Procedures: Labs Laboratory Tests 06/29/18 15:56: Glucometer 110 06/29/18 20:52: Glucometer 91 06/30/18 05:08: Glucometer 72 06/30/18 05:20: White Blood Count 11.1H, Red Blood Count 5.06, Hemoglobin 14.5, Hematocrit 44, Mean Corpuscular Volume 88, Mean Corpuscular Hemoglobin 29, Mean Corpuscular Hemoglobin Concent 33, Red Cell Distribution Width 14.3, Platelet Count 157, Mean Platelet Volume 10.0, Neutrophils (%) (Auto) 75, Lymphocytes (%) (Auto) 16 , Monocytes (%) (Auto) 7, Eosinophils (%) (Auto) 2, Basophils (%) (Auto) 0, Neutrophils # (Auto) 8.3H, Lymphocytes # (Auto) 1.7, Monocytes # (Auto) 0.8, Eosinophils # (Auto) 0.3, Basophils # (Auto) 0.0, Sodium Level 139, Potassium Level 3.6, Chloride Level 106, Carbon Dioxide Level 26, Anion Gap 7, Blood Urea Nitrogen 10, Creatinine 0.64, Estimat Glomerular Filtration Rate > 60, BUN/ Creatinine Ratio 16, Glucose Level 64L, Calcium Level 8.7, Corrected Calcium 9.3 , Total Bilirubin 0.8, Aspartate Amino Transf (AST/SGOT) 13, Alanine Aminotransferase (ALT/SGPT) 13, Alkaline Phosphatase 94, Total Protein 6.6, Albumin 3.2 Microbiology 06/29/18 Gram Stain - Final, Resulted 06/29/18 Wound Culture - Preliminary, Resulted Staphylococcus aureus See Comments Sent To l A/P: Assessment/Dx: Nonhealing ulcer left lower extremity, History of right below the knee amputation, diabetes, Hypertension, Active smoking Plan: Diabetic ulcer with infection. On broad-spectrum antibiotics. Likely osteomyelitis. Ultrasound showed evidence of severe left lower extremity disease, peripheral angiography today. PAD, aspirin, Plavix, statin. Smoking cessation was strongly recommended. Continue current treatment for diabetes and hypertension. Thank you for your consultation. Please call me if you have any questions. Silvia Rodriguez MD, FACP, FACC, FSCAI, FHRS, CCDS Interventional Cardiology Cardiac Electrophysiology Vascular Medicine and Endovascular Interventions Jaleesa RODRIGUEZ MD Jun 30, 2018 11:25 am
--- NOTE | 2018-06-30 11:28 | Coronary Angiography & PCI ---
Peripheral Angio & Interv DATE OF SERVICE: 06/30/18 PRIMARY PHYSICIAN: Dr. Daly Ledesma, Dr. Arnold PERFORMING INTERVENTIONALIST: Dr. Silvia Rodriguez INDICATION: Critical limb ischemia, nonhealing left foot ulcer. PREOPERATIVE INDICATION: Critical limb ischemia, nonhealing left foot ulcer. POSTOPERATIVE DIAGNOSIS: Severe distal SFA stenosis treated successfully with a drug-coated balloon. HISTORY: This is a 53-year-old gentleman with diabetes, active smoking, hypertension and multiple amputation. He has right below the knee amputation. He presents with a nonhealing ulcer on the left lower extremity, likely osteomyelitis on broad- spectrum IV antibiotics. Arterial ultrasound shows evidence of likely severe disease in the SFA and left lower extremity. Peripheral angiogram and possible intervention is recommended. PROCEDURE PERFORMED: 1. Abdominal aortogram and nonselective bilateral renal angiogram. 2. Bilateral lower extremity runoff. 3. Selective left lower extremity angiograms. 4. Drug-coated balloon angioplasty to distal SFA. SPECIMENS: None. ANESTHESIA: Conscious sedation. BLOOD LOSS: 20 mL. COMPLICATIONS: None. CONTRAST USED: 133 ml. FLUOROSCOPY DOSE: 1304 Mgy. FLUOROSCOPY TIME: 10.27 minutes. ANTICOAGULATION: IV heparin. DESCRIPTION OF PROCEDURE: The patient was brought to the blood bank laboratory technician after informed consent was taken. All the risks and complications were explained in detail. The patient was draped and prepped in the usual sterile fashion. Access was gained in the right femoral artery with a 5 Nepalese sheath. Pigtail catheter was advanced over a regular J-tipped wire and placed in the mid abdominal aorta and abdominal aortogram and nonselective bilateral renal angiogram was performed. The pigtail catheter was then pulled back to the level just above the bifurcation however due to body habitus we could not do bilateral lower extremity angiograms at the same time, therefore we tried to do a crossover with the pigtail catheter. The J tipped wire was taken out and we went in with a Glidewire and were able to put the glide wire in the SFA. The pigtail catheter was taken out and then we went in with straight tipped catheter. This catheter was placed in the left common iliac artery and selective angiogram done. The wire was placed again and the catheter was advanced till the FLIGHT DIRECTOR and another angiogram done. Over a wire the catheter was then advanced in the popliteal artery and lower extremity below the knee angiogram was done. The wire was taken out and a pullback was performed across the lesion in the SFA. At the end of the procedure and another angiogram was performed at the bifurcation to make sure there is no vascular complication. Right lower extremity runoff was also performed at this point in time. Long sheath was exchanged with a short sheath and right femoral artery was closed with a Mynx closure device. FINDINGS: Patent abdominal aorta. Patent bilateral renal arteries. Patent left common, external iliac artery. [id number] left FLIGHT DIRECTOR disease. Moderate to severe 70 percent stenosis in the distal SFA. Pullback pressure gradient 21 mmHg. Excellent two-vessel runoff below the left knee. There are deep peroneal and the posterior tibial artery. Anterior tibial artery is not visualized. Patent right common, external, FLIGHT DIRECTOR, SFA artery. Below the knee amputation. RECOMMENDATIONS: Drug-coated balloon angioplasty is recommended to the distal SFA. INTERVENTIONAL DETAILS: A long sheath was placed which was 6 Nepalese x 70 cm flexor sheath. IV heparin was given. One ACT was done which was 185 seconds. Patient received bolus aspirin and Plavix last evening. Regular dose of aspirin and Plavix was given this morning. After the ACT another thousand units of heparin was given. The lesion was crossed with a 0.035 guidewire. a Lutonix 6.0 x 100 x 130cm drug- coated balloon was taken and deployed at 12 gregory for 3 minutes. Post-balloon angioplasty a small nonflow limiting dissection was noted. We waited for 5 minutes and took another angiogram with no significant worsening of the dissection. Mild residual stenosis of 10 percent. Good flow distally. The wire was taken out and post-angiogram showed good results. CONCLUSION: 1. Moderate to severe distal SFA stenosis treated successfully with a drug- coated balloon. 2. Long-term aspirin and Plavix. Long-term statin therapy. 3. Continue IV fluids and further management as per and Dr Arnold. 4. Smoking cessation was strongly recommended. Silvia Rodriguez MD, FACP, FACC, [facility] Vascular Medicine and Endovascular Interventions Jaleesa RODRIGUEZ MD Jun 30, 2018 11:28 am
[2018-06-30] MEDS ORDERED: PATIENT MAY USE OWN MEDS, ALL PO SCH (11:30)
[2018-06-30] MEDS ORDERED: TROUGH ORDER-PHARMACY XX NR (12:00)
[2018-06-30] MEDS ORDERED: HYDROcodone/APAP 5 MG/325 MG (LORTAB) TAB PO NR (17:00)
--- NOTE | 2018-06-30 17:34 | Progress Note (SOAP) ---
Subjective Subjective/Events-last exam Patient doing well this AM. Back from cath and complaining of right groin pain. Tolerated lunch. BM yesterday. Review of Systems Date Seen by Provider: Jun 30, 2018 Time Seen by Provider: 15:00 Pulmonary: No Dyspnea, No Cough Cardiovascular: Edema; No: Chest Pain, Palpitations Gastrointestinal: No: Nausea, Vomiting, Abdominal Pain, Diarrhea, Constipation Musculoskeletal: leg pain (Right groin) Objective Exam Last Set of Vital Signs Vital Signs Date Time Temp Pulse Resp B/P (MAP) Pulse Ox O2 Delivery O2 Flow Rate FiO2 06/30/18 16:30 98.1 74 16 141/67 (91) 93 Room Air Capillary Refill : Less Than 3 Seconds I&O Intake and Output 06/30/18 00:00 Intake Total 1125 ml Output Total 700 ml Balance 425 ml Intake Oral 400 ml IV Total 725 ml Output Urine Total 700 ml Daily Weight Change Yes, 14-23 lbs General: Alert, Oriented X3, Cooperative, No Acute Distress Lungs: Clear to Auscultation, Normal Air Movement Heart: Regular Rate, No Murmurs Abdomen: Normal Bowel Sounds, Soft, No Tenderness, No Masses Extremities: Other (R BKA, Left foot in bandage, mild erythema in foot, + numbness and decrease sensation to pain. Right groin wound appropriate, no hematoma or drainage present) Neuro: Normal Speech, Cranial Nerves 3-12 NL Psych/Mental Status: Mental Status NL, Mood NL Results/Procedures Lab Laboratory Tests 06/29/18 20:52: Glucometer 91 06/30/18 05:08: Glucometer 72 06/30/18 05:20: White Blood Count 11.1H, Red Blood Count 5.06, Hemoglobin 14.5, Hematocrit 44, Mean Corpuscular Volume 88, Mean Corpuscular Hemoglobin 29, Mean Corpuscular Hemoglobin Concent 33, Red Cell Distribution Width 14.3, Platelet Count 157, Mean Platelet Volume 10.0, Neutrophils (%) (Auto) 75, Lymphocytes (%) (Auto) 16 , Monocytes (%) (Auto) 7, Eosinophils (%) (Auto) 2, Basophils (%) (Auto) 0, Neutrophils # (Auto) 8.3H, Lymphocytes # (Auto) 1.7, Monocytes # (Auto) 0.8, Eosinophils # (Auto) 0.3, Basophils # (Auto) 0.0, Sodium Level 139, Potassium Level 3.6, Chloride Level 106, Carbon Dioxide Level 26, Anion Gap 7, Blood Urea Nitrogen 10, Creatinine 0.64, Estimat Glomerular Filtration Rate > 60, BUN/ Creatinine Ratio 16, Glucose Level 64L, Calcium Level 8.7, Corrected Calcium 9.3 , Total Bilirubin 0.8, Aspartate Amino Transf (AST/SGOT) 13, Alanine Aminotransferase (ALT/SGPT) 13, Alkaline Phosphatase 94, Total Protein 6.6, Albumin 3.2 06/30/18 11:46: Glucometer 70 06/30/18 12:00: Vancomycin Level Trough 13.9 06/30/18 16:44: Glucometer 117H Microbiology 06/29/18 Blood Culture - Preliminary, Resulted No growth 06/29/18 Gram Stain - Final, Resulted 06/29/18 Wound Culture - Preliminary, Resulted Staphylococcus aureus See Comments Sent To [facility] Radiology Date of Exam: 06/29/18 FOOT, LEFT, 3 VIEWS Indication: Diabetes, foot ulcer, infection COMPARISON: 11/11/2015 FINDINGS: 3 views of the left foot demonstrate chronic amputation of the first metatarsal and second phalanx. There is a chronic destructive changes of the third metatarsophalangeal joint. There is no acute fracture or dislocation or radiographic evidence of osteomyelitis. There is no foreign body or soft tissue gas. Impression: 1. 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 2. No radiographic evidence of acute fracture or osteomyelitis or soft tissue foreign body. Assessment/Plan Assessment/Plan (1) Diabetic foot ulcer associated with type 2 diabetes mellitus Status: Acute Assessment & Plan: - Wound care and Cardiology consulted - Patient started on Vanc/Zosyn, culture pending but likely with have multiple organisms - Xray did not show Osteo 06/30: Continue Vanc/Zosyn, patient has h/o MRSA in wounds Qualifiers: Qualified Codes: E11.621 - Type 2 diabetes mellitus with foot ulcer; L97.422 - Non-pressure chronic ulcer of left heel and midfoot with fat layer exposed (2) Peripheral vascular disease Status: Chronic Assessment & Plan: - h/o R BKA, Will have intervention tomorrow with Jennifer - ASA and Plavix given today - Discussed the importance of smoking cessation 06/30: SFA treated with balloon by Dr Rodriguez, Continue ASA and Plavix (3) IDDM (insulin dependent diabetes mellitus) Status: Chronic Assessment & Plan: - A1c pending, Will decrease insulin while inpatient to Levemir 40 BID with sliding scale B, High dose Statin needs to be added upon d/c (4) Hypertension Status: Chronic Assessment & Plan: - Continue home meds Qualifiers: Qualified Codes: I10 - Essential (primary) hypertension (5) Hyperlipidemia Status: Chronic Qualifiers: Qualified Codes: E78.2 - Mixed hyperlipidemia (6) Tobacco abuse Status: Chronic Assessment & Plan: - Discussed the need for cessation given severe PVD (7) BMI 40.0-44.9, adult Status: Chronic Clinical Quality Measures DVT/VTE Risk/Contraindication: Risk Factor Score Per Nursin RFS Level Per Nursing on Admit: 4+=Very High KELSEA BLAIR MD Jun 30, 2018 5:34 pm
[2018-06-30] MEDS ORDERED: ATORVASTATIN 40 MG (LIPITOR) TABLET PO SCH (21:00)
[2018-07-01] MEDS: VANCOMYCIN 2000 MG/NS 500 ML IVPB IV SCH ×4 (00:02→14:40)
[2018-07-01] MEDS: HYDROcodone/APAP 5 MG/325 MG (LORTAB) TAB PO PRN ×3 (00:02→14:43)
[2018-07-01 00:08] VITALS: BP 143/67
[2018-07-01] MEDS: PIPERACILLIN/TAZO 4.5 GM/D5W 100 ML IV SCH ×4 (03:43→11:56)
[2018-07-01] MEDS: CATHETER FLUSH 10 ML SYR IV SCH ×2 (03:43→12:05)
[2018-07-01 04:35] VITALS: BP 134/72
[2018-07-01] MEDS: inSUlin ASPART (NovoLOG) 1 UNIT/0.01 ML (CHARGE PER UNIT) SC SCH ×2 (05:48→11:49)
[2018-07-01 06:39] LABS: HEMOGLOBIN 13.6 G/DL (13.3-17.7); RED BLOOD COUNT 4.76 10^6/uL (4.35-5.85); WHITE BLOOD COUNT 8.6 10^3/uL (4.3-11.0)
[2018-07-01 06:57] LABS: BUN/CREATININE RATIO 10; CALCIUM 8.5 MG/DL (8.5-10.1); CARBON DIOXIDE 23 MMOL/L (21-32); CHLORIDE 105 MMOL/L (98-107); CREATININE SERUM 0.67 MG/DL (0.60-1.30); GFR ESTIMATED > 60; GLUCOSE 100 MG/DL (70-105); POTASSIUM 3.9 MMOL/L (3.6-5.0); SODIUM 136 MMOL/L (135-145)
[2018-07-01 08:00] VITALS: BP 155/78
[2018-07-01] MEDS: NS IV 1000 ML 1,000 ML IV SCH ×2 (08:19→10:41)
[2018-07-01] MEDS: PATCH REMOVAL TP SCH (08:26)
[2018-07-01] MEDS: CLOPIDOGREL 75 MG (PLAVIX) TABLET PO SCH (08:26)
[2018-07-01] MEDS: NICOTINE 21 MG (NICODERM) PATCH TD SCH (08:26)
[2018-07-01] MEDS: GABAPENTIN 600 MG (NEURONTIN) TAB PO SCH ×2 (08:26→14:43)
[2018-07-01] MEDS: inSUlin DETERMIR 1 UNIT/0.01 ML (LEVEMIR) CHARGE PER UNIT SQ SCH (08:27)
[2018-07-01] MEDS ORDERED: CLOPIDOGREL 75 MG (PLAVIX) TABLET PO SCH (09:00)
[2018-07-01] MEDS ORDERED: ASPIRIN E.C. 81 MG (ECOTRIN) TAB PO SCH (09:00)
--- NOTE | 2018-07-01 09:59 | Cardiology Progress Note ---
Subjective Date Seen by Provider: Jul 01, 2018 Time Seen by Provider: 09:56 Subjective/Events-last exam Patient is laying down in bed, denied any chest pain. Recovering slowly. No shortness of breath Review of Systems General: No Chills, No Night Sweats, No Fatigue, No Malaise, No Appetite, No Other HEENT: No Head Aches, No Visual Changes, No Eye Pain, No Ear Pain, No Dysphasia , No Sinus Congestion, No Post Nasal Drip, No Sore Throat, No Other Pulmonary: No Dyspnea, No Cough, No Pleuritic Chest Pain, No Other Cardiovascular: No: Chest Pain, Palpitations, Orthopnea, Paroxysmal Noc. Dyspnea, Edema, Lt Headedness, Other Objective-Cardiology Exam Last Set of Vital Signs Vital Signs 07/01/18 08:00 Temp 97.3 Pulse 61 Resp 20 B/P (MAP) 155/78 (103) Pulse Ox 95 O2 Delivery Room Air Capillary Refill : Less Than 3 Seconds I&O Intake and Output 07/01/18 00:00 Intake Total 3750 ml Output Total 1675 ml Balance 2075 ml Intake Oral 930 ml IV Total 2820 ml Output Urine Total 1675 ml General: Alert, Oriented X3, Cooperative, No Acute Distress Lungs: Clear to Auscultation, Normal Air Movement Heart: Regular Rate, Normal S1, Normal S2, No Murmurs Abdomen: Normal Bowel Sounds, Soft, No Tenderness, No Masses Extremities: No Clubbing, No Cyanosis, Other (R BKA, Left foot in bandage, mild erythema in foot, + numbness and decrease sensation to pain. Right groin wound appropriate, no hematoma or drainage present) Skin: No Rashes Neuro: Normal Speech, Cranial Nerves 3-12 NL Psych/Mental Status: Mental Status NL, Mood NL Results Lab Laboratory Tests 07/01/18 06:02 A/P-Cardiology Admission Diagnosis Diabetic foot ulcer Peripheral arterial disease Hypertension Hyperlipidemia Assessment/Plan Diabetic ulcer with infection. On broad-spectrum antibiotics. Likely osteomyelitis. Managed by primary care team Peripheral arterial disease, status post recorded balloon to the distal SFA with good results. Maintained on aspirin and Plavix. Hypertension, restart home medication monitor blood pressure Hyperlipidemia, maintained on Lipitor 40 mg daily, monitor lipids Diabetes mellitus, followed and managed by primary care physician Leanne, educated on smoking cessation. BMI 43, discussed weight loss Clinical Quality Measures DVT/VTE Risk/Contraindication: Risk Factor Score Per Nursin RFS Level Per Nursing on Admit: 4+=Very High ADA DAMON MD Jul 01, 2018 09:59
--- NOTE | 2018-07-01 11:23 | Progress Note (SOAP) ---
EKATERINA ROGERS MEDICAL STUDENT 07/01/18 1123: Subjective Subjective/Events-last exam Pt resting comfortably in bed and just finished breakfast. Denies any new complaints or pain. He is currently homeless but states he has a place to stay at his uq-dlxizbe-hj-law's house. He also says he does not need a refill on his Glargine or other meds. XR of L foot was neg. for osteomyelitis. Cardiology was consulted for PVD, a balloon stent was placed in the L SFA. He has been re- evaluated by them post procedure and deemed ready for d/c home w/ f/u PCP. He is scheduled for f/u w/ Eliane Abdalla at [facility] on Sunday. He has a hx of MRSA osteomyelitis; wound culture for current visit shows S. aureus, sensitivities pending. Review of Systems Date Seen by Provider: Jul 01, 2018 Time Seen by Provider: 08:10 General: No Chills, No Fatigue HEENT: No Head Aches Pulmonary: No Dyspnea Cardiovascular: No: Chest Pain Musculoskeletal: No: foot pain Focused Exam Sepsis Stage: Ruled Out Reason for ruling out sepsis: No SIRS criteria evident, blood cultures neg. Possible Source: Skin/Soft Tissue Time of Focused Exam: 08:10 Respiratory: No Accessory Muscle Use, No Respiratory Distress, Wheezing (Mild, diffuse expiratory) Cardiovascular: Regular Rate, Rhythm, No Murmur Capillary Refill: Less Than 3 Seconds Skin: warm/dry, other (wound of L foot dressed in sterile bandages, mild erythema of toes 3-5, no obvious drainage or bleeding, no noxious smell) Objective Exam Last Set of Vital Signs Vital Signs Date Time Temp Pulse Resp B/P (MAP) Pulse Ox O2 Delivery O2 Flow Rate FiO2 07/01/18 08:00 97.3 61 20 155/78 (103) 95 Room Air Capillary Refill : Less Than 3 Seconds I&O Intake and Output 06/30/18 23:59 Intake Total 3750 ml Output Total 1675 ml Balance 2075 ml Intake Oral 930 ml IV Total 2820 ml Output Urine Total 1675 ml General: Alert, Oriented X3 HEENT: Mucous Memb Moist/[place] Neck: Supple, No JVD Lungs: Other (mild, diffuse, expiratory wheezes bilaterally) Heart: Regular Rate, No Murmurs Abdomen: Normal Bowel Sounds, Soft Extremities: No Tenderness/Swelling Skin: Other (wound of L foot dressed in sterile bandages, mild erythema of toes 3-5, no obvious drainage or bleeding, no noxious smell) Neuro: Normal Speech, Normal Tone Psych/Mental Status: Mood NL Results/Procedures Lab Laboratory Tests 06/30/18 11:46: Glucometer 70 06/30/18 12:00: Vancomycin Level Trough 13.9 06/30/18 16:44: Glucometer 117H 06/30/18 20:45: Glucometer 160H 07/01/18 05:24: Glucometer 102 07/01/18 06:02: White Blood Count 8.6, Red Blood Count 4.76, Hemoglobin 13.6, Hematocrit 42, Mean Corpuscular Volume 87, Mean Corpuscular Hemoglobin 29, Mean Corpuscular Hemoglobin Concent 33, Red Cell Distribution Width 14.0, Platelet Count 146, Mean Platelet Volume 10.0, Sodium Level 136, Potassium Level 3.9, Chloride Level 105, Carbon Dioxide Level 23, Anion Gap 8, Blood Urea Nitrogen 7, Creatinine 0.67, Estimat Glomerular Filtration Rate > 60, BUN/Creatinine Ratio 10, Glucose Level 100, Calcium Level 8.5 Microbiology 06/29/18 Blood Culture - Preliminary, Resulted No growth 06/29/18 Gram Stain - Final, Resulted 06/29/18 Wound Culture - Preliminary, Resulted Staphylococcus aureus See Comments Sent To [facility] Radiology Date of Exam: 06/29/18 FOOT, LEFT, 3 VIEWS Indication: Diabetes, foot ulcer, infection COMPARISON: 11/11/2015 FINDINGS: 3 views of the left foot demonstrate chronic amputation of the first metatarsal and second phalanx. There is a chronic destructive changes of the third metatarsophalangeal joint. There is no acute fracture or dislocation or radiographic evidence of osteomyelitis. There is no foreign body or soft tissue gas. Impression: 1. 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 2. No radiographic evidence of acute fracture or osteomyelitis or soft tissue foreign body. Assessment/Plan Assessment/Plan Admission Dx Diabetic foot ulcer w/ possible infection Admission Status: Inpatient Order (span 2 midnights) Reason for Inpatient Admission: Diabetic foot ulcer w/ need for IV abx and observation, workup for osteomyelitis and PVD Assessment & Plan 1) Diabetic foot ulcer - Pt has place to stay when d/c'ed. Discussed that it is better he stays indoors to help his foot heal and remain clean. - Continue on abx. Will d/c w/ doxycycline due to hx of MRSA, but culture sensitivities still pending 2) PVD - Per Dr. Wilder, pt can be maintained on Plavix and ASA post SFA catheterization 3) IDDM - Will continue pt on Glargine 50 mg BID. He has f/u visit w/ Eliane Abdalla at [facility] on Sunday to discuss blood sugar management 4) HTN - Cont. Losartan 5) Hyperlipidemia, mixed - Pt started on Atorvastatin. Will write script to continue upon d/c. 6) Tobacco use - Pt has been counseled on importance of quitting smoking Clinical Quality Measures DVT/VTE Risk/Contraindication: Risk Factor Score Per Nursin RFS Level Per Nursing on Admit: 4+=Very High CATY SIEGEL MD 07/01/182050: Supervisory-Addendum Brief Supervisory Addendum Patient seen and examined with REBECCA Rogers. See my d/c summary for my documentation today. EKATERINA ROGERS MEDICAL STUDENT Jul 01, 2018 11:23 CATY SIEGEL MD Jul 01, 2018 20:51
[2018-07-01 12:00] VITALS: BP 184/84
[2018-07-01] MEDS ORDERED: CLOP75TA28 PO (14:15)
[2018-07-01] MEDS ORDERED: ATOR40TA PO (14:15)
[2018-07-01] MEDS ORDERED: DOXY100T2 PO (14:15)
[2018-07-01] MEDS ORDERED: LOSA50TA36 PO (14:15)
[2018-07-01] MEDS ORDERED: ASPI-983 PO (14:15)
--- NOTE | 2018-07-01 14:17 | Discharge Instructions ---
Discharge Inst-[facility] Discharge Medications New, Converted or Re-Newed RX: Transmitted to Pharmacy New Medications: Doxycycline Hyclate (Doxycycline Hyclate) 100 Mg Tablet 100 MG PO BID, #14 TAB 0 Refills Aspirin (Aspirin EC) 81 Mg Tablet.dr 81 MG PO DAILY, #30 TAB 0 Refills Atorvastatin Calcium (Lipitor) 40 Mg Tablet 40 MG PO HS, #30 TAB 0 Refills Clopidogrel Bisulfate (Clopidogrel) 75 Mg Tablet 75 MG PO DAILY, #30 TAB 0 Refills Continued Medications: Albuterol Sulfate (Proair Hfa) 1 Puff Puff 2 PUFF INH Q4H PRN for SHORTNESS OF BREATH, INHALER Gabapentin (Gabapentin) 600 Mg Tablet 600 MG PO TID, TAB Insulin Glargine,Hum.rec.anlog (Lantus Solostar) 100 Unit/1 Ml Insuln.pen 55 UNITS INJ 6am and 6pm Losartan Potassium (Losartan Potassium) 50 Mg Tablet 50 MG PO DAILY PRN for HIGH BLOOD PRESSURE, #30 TAB 0 Refills (This prescription has been renewed) LAST FILLED #90 11-06-17 Pantoprazole Sodium (Pantoprazole Sodium) 40 Mg Tablet.dr 40 MG PO DAILY PRN for HEARTBURN, TAB LAST FILLED #90 11-06-17 Discontinued Medications: Ibuprofen (Ibuprofen) 600 Mg Tablet 600 MG PO BID, TAB Patient Instructions Goal/Follow Up Appt: Follow up at [facility] moe Abdalla on July 05 at 11:40 am. Follow up at wound care as directed. Patient Instructions: Please call clinic if you need a refill on insulin before your visit. Activity & Diet Discharge Diet: ADA Diet Orders-Post D/C & Referrals Pneu Vac Indicated: Yes Copy Copies To 1: JOSE Esparza BETHANY N MD Jul 01, 2018 2:17 pm
--- NOTE | 2018-07-01 14:23 | Discharge Summary ---
Diagnosis/Chief Complaint Date of Admission Jun 29, 2018 at 12:10 pm Date of Discharge Jul 01, 2018 Admission Diagnosis Admission Diagnosis (1) Diabetic foot ulcer associated with type 2 diabetes mellitus Status: Acute Qualifiers: Qualified Codes: E11.621 - Type 2 diabetes mellitus with foot ulcer; L97.422 - Non-pressure chronic ulcer of left heel and midfoot with fat layer exposed (2) Peripheral vascular disease Status: Chronic (3) IDDM (insulin dependent diabetes mellitus) Status: Chronic (4) Hypertension Status: Chronic Qualifiers: Qualified Codes: I10 - Essential (primary) hypertension (5) Hyperlipidemia Status: Chronic Qualifiers: Qualified Codes: E78.2 - Mixed hyperlipidemia (6) Tobacco abuse Status: Chronic (7) BMI 40.0-44.9, adult Status: Chronic Discharge Diagnosis (1) Diabetic foot ulcer associated with type 2 diabetes mellitus Status: Acute Assessment & Plan: - Wound care and Cardiology consulted - Patient started on Vanc/Zosyn, culture pending but likely with have multiple organisms - Xray did not show Osteo 06/30: Continue Vanc/Zosyn, patient has h/o MRSA in wounds 07/01 discharged with 7 days of doxycycline and wound care follow-up (2) Peripheral vascular disease Status: Chronic Assessment & Plan: - h/o R BKA, Will have intervention tomorrow with Jennifer - ASA and Plavix given today - Discussed the importance of smoking cessation 06/30: SFA treated with balloon by Dr Rodriguez, Continue ASA and Plavix (3) IDDM (insulin dependent diabetes mellitus) Status: Chronic Assessment & Plan: - A1c pending, Will decrease insulin while inpatient to Levemir 40 BID with sliding scale B, High dose Statin added with discharge medications (4) Hypertension Status: Chronic Assessment & Plan: - Continue home meds Qualifiers: Qualified Codes: I10 - Essential (primary) hypertension (5) Hyperlipidemia Status: Chronic Qualifiers: Qualified Codes: E78.2 - Mixed hyperlipidemia (6) Tobacco abuse Status: Chronic Assessment & Plan: - Discussed the need for cessation given severe PVD (7) BMI 40.0-44.9, adult Status: Chronic Chief Complaint/HPI Chief Complaint/HPI 53 yo M with h/o multiple amputations including R BKA that presented with left foot wound. Patient states that he was out camping and smelled something in his truck and did not realize that he had a wound on his foot. Previously has had osteomyelitis several times which is why he presented to ER. States that he noticed the wound today. + foul smell and drainage from wound. Denies any fever or chills. States that he has been on insulin for 15 years and he does not really take his blood sugars very often so he is not sure what they have been running. + pain in left foot. h/o severe neuropathy in left foot. Discharge Summary-Simple/Stand Procedures Drug coated Ballon angioplasty Left SFA Consultations Dr. Rodriguez (Cardiology) Dr. Arnold (Wound Care) Discharge Physical Examination Allergies: Coded Allergies: pregabalin (Unverified Allergy, Severe, FEVER, 04/26/15) Vitals & I&Os Vital Sign - Last 12Hours Date Time Temp Pulse Resp B/P (MAP) Pulse Ox O2 Delivery O2 Flow Rate FiO2 07/01/18 08:00 97.3 61 20 155/78 (103) 95 Room Air Intake and Output 07/01/18 00:00 Intake Total 1830 ml Output Total 1400 ml Balance 430 ml General Appearance: Alert, No Acute Distress Respiratory: Clear to Auscultation, Normal Air Movement Cardiovascular: Regular Rate, No Murmurs Extremities: Other (Left foot with dressing in place with slight serosanguinous drainage noted, no erythema of toes, s/p amputation of several toes, right BKA stump with scabbed 1 cm wound with no drainage or erythema) Neuro: Normal Speech Psych/Mental Status: Mental Status NL Hospital Course See final discharge diagnosis. Labs Laboratory Tests Test 06/29/18 15:56 06/29/18 20:52 06/30/18 05:08 06/30/18 05:20 Range/Units Glucometer 110 91 72 70-110 MG/DL White Blood Count 11.1 H 4.3-11.0 10^3/uL Red Blood Count 5.06 4.35-5.85 10^6/uL Hemoglobin 14.5 13.3-17.7 G/DL Hematocrit 44 40-54 % Mean Corpuscular Volume 88 80-99 FL Mean Corpuscular Hemoglobin 29 25-34 PG Mean Corpuscular Hemoglobin Concent 33 32-36 G/DL Red Cell Distribution Width 14.3 10.0-14.5 % Platelet Count 157 130-400 10^3/uL Mean Platelet Volume 10.0 7.4-10.4 FL Neutrophils (%) (Auto) 75 42-75 % Lymphocytes (%) (Auto) 16 12-44 % Monocytes (%) (Auto) 7 0-12 % Eosinophils (%) (Auto) 2 0-10 % Basophils (%) (Auto) 0 0-10 % Neutrophils # (Auto) 8.3 H 1.8-7.8 X 10^3 Lymphocytes # (Auto) 1.7 1.0-4.0 X 10^3 Monocytes # (Auto) 0.8 0.0-1.0 X 10^3 Eosinophils # (Auto) 0.3 0.0-0.3 10^3/uL Basophils # (Auto) 0.0 0.0-0.1 10^3/uL Sodium Level 139 135-145 MMOL/L Potassium Level 3.6 3.6-5.0 MMOL/L Chloride Level 106 98-107 MMOL/L Carbon Dioxide Level 26 21-32 MMOL/L Anion Gap 7 5-14 MMOL/L Blood Urea Nitrogen 10 7-18 MG/DL Creatinine 0.64 0.60-1.30 MG/DL Estimat Glomerular Filtration Rate > 60 BUN/Creatinine Ratio 16 Glucose Level 64 L 70-105 MG/DL Calcium Level 8.7 8.5-10.1 MG/DL Corrected Calcium 9.3 8.5-10.1 MG/DL Total Bilirubin 0.8 0.1-1.0 MG/DL Aspartate Amino Transf (AST/SGOT) 13 5-34 U/L Alanine Aminotransferase (ALT/SGPT) 13 0-55 U/L Alkaline Phosphatase 94 40-136 U/L Total Protein 6.6 6.4-8.2 GM/DL Albumin 3.2 3.2-4.5 GM/DL Test 06/30/18 11:46 06/30/18 12:00 06/30/18 16:44 06/30/18 20:45 Range/Units Glucometer 70 117 H 160 H 70-110 MG/DL Vancomycin Level Trough 13.9 10.0-20.0 UG/ML Test 07/01/18 05:24 07/01/18 06:02 07/01/18 11:25 Range/Units Glucometer 102 144 H 70-110 MG/DL White Blood Count 8.6 4.3-11.0 10^3/uL Red Blood Count 4.76 4.35-5.85 10^6/uL Hemoglobin 13.6 13.3-17.7 G/DL Hematocrit 42 40-54 % Mean Corpuscular Volume 87 80-99 FL Mean Corpuscular Hemoglobin 29 25-34 PG Mean Corpuscular Hemoglobin Concent 33 32-36 G/DL Red Cell Distribution Width 14.0 10.0-14.5 % Platelet Count 146 130-400 10^3/uL Mean Platelet Volume 10.0 7.4-10.4 FL Sodium Level 136 135-145 MMOL/L Potassium Level 3.9 3.6-5.0 MMOL/L Chloride Level 105 98-107 MMOL/L Carbon Dioxide Level 23 21-32 MMOL/L Anion Gap 8 5-14 MMOL/L Blood Urea Nitrogen 7 7-18 MG/DL Creatinine 0.67 0.60-1.30 MG/DL Estimat Glomerular Filtration Rate > 60 BUN/Creatinine Ratio 10 Glucose Level 100 70-105 MG/DL Calcium Level 8.5 8.5-10.1 MG/DL Radiology Reviewed Date of Exam: 06/29/18 FOOT, LEFT, 3 VIEWS Indication: Diabetes, foot ulcer, infection COMPARISON: 11/11/2015 FINDINGS: 3 views of the left foot demonstrate chronic amputation of the first metatarsal and second phalanx. There is a chronic destructive changes of the third metatarsophalangeal joint. There is no acute fracture or dislocation or radiographic evidence of osteomyelitis. There is no foreign body or soft tissue gas. Impression: 1. 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 2. No radiographic evidence of acute fracture or osteomyelitis or soft tissue foreign body. Discharge Instructions to patient/family Please see electronic discharge instructions given to patient. Discharge Medications Reviewed and agree with Discharge Medication list on patient's Discharge Instruction sheet Clinical Quality Measures DVT/VTE Risk/Contraindication: Risk Factor Score Per Nursin RFS Level Per Nursing on Admit: 4+=Very High Copy Copies To 1: JOSE Esparza BETHANY N MD Jul 01, 2018 2:23 pm
== END 2018-07-01 16:20 | disposition home or self-care (01) | DRG 629 ==
LOC: EDUNIT# 10:53 → ER 10:54 → 4TH 12:10
PROVIDERS: ADMIT Family Medicine; ATTEND Family Medicine
PROC: 047L3Z1 Dilation of Left Femoral Artery using Drug-Coated Balloon, Percutaneous Approach (ICD-10-PCS; principal; 2018-06-30)
PROC: B4101ZZ Fluoroscopy of Abdominal Aorta using Low Osmolar Contrast (ICD-10-PCS; 2018-06-30)
PROC: B4181ZZ Fluoroscopy of Bilateral Renal Arteries using Low Osmolar Contrast (ICD-10-PCS; 2018-06-30)
PROC: B41G1ZZ Fluoroscopy of Left Lower Extremity Arteries using Low Osmolar Contrast (ICD-10-PCS; 2018-06-30)
DX: E11.621 Type 2 diabetes mellitus with foot ulcer (principal); L97.422 Non-pressure chronic ulcer of left heel and midfoot with fat layer exposed; I70.203 Unspecified atherosclerosis of native arteries of extremities, bilateral legs; E66.9 Obesity, unspecified; Z68.41 Body mass index [BMI] 40.0-44.9, adult; E11.42 Type 2 diabetes mellitus with diabetic polyneuropathy; E11.65 Type 2 diabetes mellitus with hyperglycemia; F17.210 Nicotine dependence, cigarettes, uncomplicated; G47.30 Sleep apnea, unspecified; J44.9 Chronic obstructive pulmonary disease, unspecified; I25.10 Atherosclerotic heart disease of native coronary artery without angina pectoris; E78.00 Pure hypercholesterolemia, unspecified; I10 Essential (primary) hypertension; K21.9 Gastro-esophageal reflux disease without esophagitis; K44.9 Diaphragmatic hernia without obstruction or gangrene; B95.8 Unspecified staphylococcus as the cause of diseases classified elsewhere; Z79.4 Long term (current) use of insulin; Z89.511 Acquired absence of right leg below knee; Z89.422 Acquired absence of other left toe(s); Z86.14 Personal history of Methicillin resistant Staphylococcus aureus infection
CPT/HCPCS: 36415; 73630; 75625; 75716; 80048; 80053; 80202; 82962; 83036; 85007; 85025; 85027; 85347; 85652; 87040; 87070; 87077; 87186; 87205; 93925; 96365

== ENCOUNTER → 2018-07-03 | Outpatient (CLI) | payer MEDICARE ==
[~2018-07-03] MED LIST changes: +ASPI-983 PO; +ATOR40TA PO; +CLOP75TA28 PO; +DOXY100T2 PO; +INSU100I10 INJ
== END ==
LOC: WOUNDCARE 12:02
PROVIDERS: ATTEND Surgery
DX: E11.621 Type 2 diabetes mellitus with foot ulcer (principal); I70.245 Atherosclerosis of native arteries of left leg with ulceration of other part of foot; L97.522 Non-pressure chronic ulcer of other part of left foot with fat layer exposed; E11.42 Type 2 diabetes mellitus with diabetic polyneuropathy; T65.222A Toxic effect of tobacco cigarettes, intentional self-harm, initial encounter
CPT/HCPCS: 99213

== ENCOUNTER → 2018-07-19 | Outpatient (CLI) | payer MEDICARE, OTHER ==
[~2018-07-19] MED LIST changes: -LOSA50TA36 PO; +LOSA50TA7 PO
== END ==
LOC: WOUNDCARE 08:13
PROVIDERS: ATTEND Surgery
DX: E11.621 Type 2 diabetes mellitus with foot ulcer (principal); L97.522 Non-pressure chronic ulcer of other part of left foot with fat layer exposed; I70.245 Atherosclerosis of native arteries of left leg with ulceration of other part of foot; L97.521 Non-pressure chronic ulcer of other part of left foot limited to breakdown of skin; E11.42 Type 2 diabetes mellitus with diabetic polyneuropathy; T65.222A Toxic effect of tobacco cigarettes, intentional self-harm, initial encounter
CPT/HCPCS: 11042; 97597

== ENCOUNTER → 2018-07-31 | Outpatient (CLI) | payer MEDICARE, OTHER | LOC: WOUNDCARE 09:06 | PROVIDERS: ATTEND Surgery | DX: E11.621 Type 2 diabetes mellitus with foot ulcer (principal); I70.245 Atherosclerosis of native arteries of left leg with ulceration of other part of foot; L97.522 Non-pressure chronic ulcer of other part of left foot with fat layer exposed; L97.521 Non-pressure chronic ulcer of other part of left foot limited to breakdown of skin; E11.42 Type 2 diabetes mellitus with diabetic polyneuropathy | CPT/HCPCS: 11043; 11046; 87070; 87075; 87077; 87185; 87186; 87205 ==

== ENCOUNTER → 2018-08-07 | Outpatient (CLI) | payer MEDICARE | LOC: WOUNDCARE 13:14 | PROVIDERS: ATTEND Surgery | DX: E11.621 Type 2 diabetes mellitus with foot ulcer (principal); I70.245 Atherosclerosis of native arteries of left leg with ulceration of other part of foot; L97.526 Non-pressure chronic ulcer of other part of left foot with bone involvement without evidence of necrosis; L97.522 Non-pressure chronic ulcer of other part of left foot with fat layer exposed; E11.42 Type 2 diabetes mellitus with diabetic polyneuropathy | CPT/HCPCS: 99214 ==

== ENCOUNTER → 2018-08-07 | Outpatient (CLI) | payer MEDICARE ==
[2018-08-07 16:05] LABS: BUN/CREATININE RATIO 23; CALCIUM 9.6 MG/DL (8.5-10.1); CARBON DIOXIDE 27 MMOL/L (21-32); CHLORIDE 99 MMOL/L (98-107); CREATININE SERUM 0.83 MG/DL (0.60-1.30); GFR ESTIMATED > 60; GLUCOSE 265 MG/DL (70-105); POTASSIUM 4.6 MMOL/L (3.6-5.0); SODIUM 133 MMOL/L (135-145)
== END ==
LOC: LAB 15:20
PROVIDERS: ATTEND Surgery
DX: E11.621 Type 2 diabetes mellitus with foot ulcer (principal); L97.526 Non-pressure chronic ulcer of other part of left foot with bone involvement without evidence of necrosis
CPT/HCPCS: 36415; 80048

== ENCOUNTER → 2018-08-14 | Outpatient (CLI) | payer MEDICARE | LOC: WOUNDCARE 07:57 | PROVIDERS: ATTEND Surgery | DX: E11.621 Type 2 diabetes mellitus with foot ulcer (principal); I70.245 Atherosclerosis of native arteries of left leg with ulceration of other part of foot; L97.522 Non-pressure chronic ulcer of other part of left foot with fat layer exposed; L97.526 Non-pressure chronic ulcer of other part of left foot with bone involvement without evidence of necrosis; E11.42 Type 2 diabetes mellitus with diabetic polyneuropathy | CPT/HCPCS: 11042; 11043; 11046 ==

== ENCOUNTER → 2018-08-18 | Outpatient (RCR) | payer MEDICARE ==
[2018-08-08 13:00] VITALS: BP 121/90
[2018-08-08] MEDS: ERTAPENEM 1 GM/NS 50 ML IVPB IV SCH ×2 (14:15)
[2018-08-09 07:40] VITALS: BP 140/73
[2018-08-09] MEDS: ERTAPENEM 1 GM/NS 50 ML IVPB IV SCH ×2 (07:50)
[2018-08-09] MEDS: CATHETER FLUSH 10 ML SYR IV PRN (08:07)
[2018-08-10 07:51] VITALS: BP 128/73
[2018-08-10] MEDS: ERTAPENEM 1 GM/NS 50 ML IVPB IV SCH ×2 (08:04)
[2018-08-11] MEDS: CATHETER FLUSH 10 ML SYR IV PRN ×2 (07:57→08:26)
[2018-08-11] MEDS: ERTAPENEM 1 GM/NS 50 ML IVPB IV SCH ×2 (07:57)
[2018-08-11 08:28] VITALS: BP 104/64
[2018-08-12] MEDS: ERTAPENEM 1 GM/NS 50 ML IVPB IV SCH ×2 (08:07)
[2018-08-12 08:08] VITALS: BP 146/80
[2018-08-13] MEDS: ERTAPENEM 1 GM/NS 50 ML IVPB IV SCH ×2 (07:39)
[2018-08-13] MEDS: CATHETER FLUSH 10 ML SYR IV PRN (07:39)
[2018-08-13 08:05] VITALS: BP 126/74
[2018-08-14] MEDS: CATHETER FLUSH 10 ML SYR IV PRN (07:12)
[2018-08-14] MEDS: ERTAPENEM 1 GM/NS 50 ML IVPB IV SCH ×2 (07:12)
[2018-08-14 07:28] VITALS: BP 116/79
[2018-08-15] MEDS: ERTAPENEM 1 GM/NS 50 ML IVPB IV SCH ×2 (07:48)
[2018-08-15] MEDS: CATHETER FLUSH 10 ML SYR IV PRN (07:48)
[2018-08-15 08:15] VITALS: BP 138/76
[2018-08-16 07:28] VITALS: BP 115/79
[2018-08-16] MEDS: ERTAPENEM 1 GM/NS 50 ML IVPB IV SCH ×2 (07:46)
[2018-08-17] MEDS: ERTAPENEM 1 GM/NS 50 ML IVPB IV SCH ×2 (08:24)
[2018-08-17] MEDS: CATHETER FLUSH 10 ML SYR IV PRN ×2 (08:24→08:53)
[2018-08-17 08:55] VITALS: BP 128/75
[~2018-08-18] VITALS: Ht 190.5 cm; Wt 160.5 kg
[2018-08-18] MEDS: CATHETER FLUSH 10 ML SYR IV PRN ×2 (08:21→08:50)
[2018-08-18] MEDS: ERTAPENEM 1 GM/NS 50 ML IVPB IV SCH ×2 (08:22)
[2018-08-18 08:55] VITALS: BP 117/79
== END | disposition home or self-care (01) ==
LOC: SDC 08-08 12:40 → 4TH RCR 08-10 08:04 → SDC 08-12 07:40
PROVIDERS: ATTEND Surgery
DX: E11.621 Type 2 diabetes mellitus with foot ulcer (principal); I70.245 Atherosclerosis of native arteries of left leg with ulceration of other part of foot; L97.526 Non-pressure chronic ulcer of other part of left foot with bone involvement without evidence of necrosis; L97.522 Non-pressure chronic ulcer of other part of left foot with fat layer exposed; E11.42 Type 2 diabetes mellitus with diabetic polyneuropathy
CPT/HCPCS: 76937; 96365; 99211

== ENCOUNTER 2018-08-21 06:51 | Outpatient (RCR) | payer MEDICARE ==
[2018-08-19] MEDS: ERTAPENEM 1 GM/NS 50 ML IVPB IV SCH ×2 (08:12)
[2018-08-19 08:13] VITALS: BP 112/68
[2018-08-20] MEDS: ERTAPENEM 1 GM/NS 50 ML IVPB IV SCH ×2 (08:06)
[2018-08-20 08:50] VITALS: BP 118/75
[~2018-08-21] VITALS: Ht 190.5 cm; Wt 160.5 kg
[2018-08-21] MEDS: ERTAPENEM 1 GM/NS 50 ML IVPB IV SCH ×2 (07:02)
[2018-08-21 07:15] LABS: BUN/CREATININE RATIO 17; CALCIUM 9.7 MG/DL (8.5-10.1); CARBON DIOXIDE 24 MMOL/L (21-32); CHLORIDE 103 MMOL/L (98-107); CREATININE SERUM 0.89 MG/DL (0.60-1.30); GFR ESTIMATED > 60; GLUCOSE 118 MG/DL (70-105); POTASSIUM 4.7 MMOL/L (3.6-5.0); SODIUM 137 MMOL/L (135-145)
[2018-08-21 07:30] VITALS: BP 119/71
[2018-08-29] MEDS ORDERED: METF-478 PO (15:38)
[2018-08-29] MEDS ORDERED: CLOP75TA28 PO (15:38)
[2018-08-29] MEDS ORDERED: ASPI-586 PO (15:38)
[2018-08-29] MEDS ORDERED: MINO100C2 PO (15:38)
[2018-08-29] MEDS ORDERED: LOSA50TA7 PO (15:38)
[2018-08-29] MEDS ORDERED: ATOR40TA70 PO (15:38)
[2018-08-29] MEDS ORDERED: IBUP-1773 PO (15:40)
[2018-08-29] MEDS ORDERED: VARE1TAB22 PO (15:40)
[2018-09-02] MEDS ORDERED: CEPH500C PO (08:56)
[2018-09-02] MEDS ORDERED: ACHD5005 PO (12:39)
== END 2018-11-17 | disposition home or self-care (01) ==
LOC: SDC 06:51
PROVIDERS: ATTEND Surgery
DX: E11.621 Type 2 diabetes mellitus with foot ulcer (principal); I70.245 Atherosclerosis of native arteries of left leg with ulceration of other part of foot; L97.526 Non-pressure chronic ulcer of other part of left foot with bone involvement without evidence of necrosis; L97.522 Non-pressure chronic ulcer of other part of left foot with fat layer exposed; E11.42 Type 2 diabetes mellitus with diabetic polyneuropathy
CPT/HCPCS: 36415; 80048; 88304; 88311; 96365; 99211

== ENCOUNTER → 2018-08-21 | Outpatient (CLI) | payer MEDICARE, OTHER ==
[~2018-08-21] MED LIST changes: +ACHD5005 PO; +ASPI-586 PO; +ATOR40TA70 PO; +CEPH500C PO; +METF-478 PO; +MINO100C2 PO; +VARE1TAB22 PO
== END ==
LOC: WOUNDCARE 08:03
PROVIDERS: ATTEND Surgery
DX: L97.524 Non-pressure chronic ulcer of other part of left foot with necrosis of bone (principal); M86.472 Chronic osteomyelitis with draining sinus, left ankle and foot; E11.621 Type 2 diabetes mellitus with foot ulcer; E11.42 Type 2 diabetes mellitus with diabetic polyneuropathy; L97.522 Non-pressure chronic ulcer of other part of left foot with fat layer exposed; I70.245 Atherosclerosis of native arteries of left leg with ulceration of other part of foot; M85.872 Other specified disorders of bone density and structure, left ankle and foot
CPT/HCPCS: 11044; 11047; 87070; 87075; 87077; 87186; 87205

== ENCOUNTER → 2018-08-21 | Outpatient (CLI) | payer MEDICARE ==
[~2018-08-21] MED LIST changes: -ACHD5005 PO; -ASPI-586 PO; -ATOR40TA70 PO; -CEPH500C PO; -METF-478 PO; -MINO100C2 PO; -VARE1TAB22 PO
--- NOTE | 2018-08-21 11:11 | Diagnostic Imaging Report ---
INDICATION: Left foot. INDICATION: Plantar skin ulcer. TECHNIQUE: Three views of the left foot were obtained. FINDINGS: The prior exam of 06/29/2018 noted chronic amputations of the first and second rays. Specifically, the phalanges and the distal two/thirds of the metatarsal of the first ray and the phalanges of the second ray were surgically absent. The prior study also noted post traumatic changes involving the midshaft of the third metatarsal and irregularity of the head of the third metatarsal. Those findings are again evident and no different; however, in the interval since the prior exam, the lateral half of the head of the fifth metatarsal has become eroded. I do suspect that this is related to osteomyelitis. If further imaging is desired, then an MRI would be recommended. No other acute bony abnormality is appreciated. There is soft tissue edema about the head of the fifth tarsal. IMPRESSION: 1. In the interval since the prior exam, the lateral half of the head of the fifth metatarsal has become eroded. Most likely, this is due to osteomyelitis. Recommendations as above. 2. The overall appearance of the left foot is otherwise stable. Dictated by: Dictated on workstation # [id number]
== END ==
LOC: RAD 09:26
PROVIDERS: ATTEND Surgery
DX: E11.621 Type 2 diabetes mellitus with foot ulcer (principal); E11.42 Type 2 diabetes mellitus with diabetic polyneuropathy; M85.872 Other specified disorders of bone density and structure, left ankle and foot; L97.524 Non-pressure chronic ulcer of other part of left foot with necrosis of bone; L97.522 Non-pressure chronic ulcer of other part of left foot with fat layer exposed; I70.245 Atherosclerosis of native arteries of left leg with ulceration of other part of foot
CPT/HCPCS: 73630

== ENCOUNTER → 2018-08-28 | Outpatient (CLI) | payer MEDICARE ==
[~2018-08-28] MED LIST changes: +ACHD5005 PO; +ASPI-586 PO; +ATOR40TA70 PO; +CEPH500C PO; +METF-478 PO; +MINO100C2 PO; +VARE1TAB22 PO
== END ==
LOC: WOUNDCARE 07:58
PROVIDERS: ATTEND Surgery
DX: M86.472 Chronic osteomyelitis with draining sinus, left ankle and foot (principal); E11.621 Type 2 diabetes mellitus with foot ulcer; I70.245 Atherosclerosis of native arteries of left leg with ulceration of other part of foot; L97.524 Non-pressure chronic ulcer of other part of left foot with necrosis of bone; L97.522 Non-pressure chronic ulcer of other part of left foot with fat layer exposed; E11.42 Type 2 diabetes mellitus with diabetic polyneuropathy
CPT/HCPCS: 99213

== ENCOUNTER 2018-08-29 14:58 | Outpatient (CLI) | payer MEDICARE ==
[~2018-08-29] VITALS: Ht 193 cm; Wt 168.3 kg
[~2018-08-29 14:58] MED LIST changes: -ACHD5005 PO; -ASPI-586 PO; -ATOR40TA70 PO; -CEPH500C PO; -METF-478 PO; -MINO100C2 PO; -VARE1TAB22 PO
[2018-08-29 15:09] VITALS: BP 131/77
[2018-08-29] MEDS ORDERED: MINO100C2 PO (15:38)
[2018-08-29] MEDS ORDERED: CLOP75TA28 PO (15:38)
[2018-08-29] MEDS ORDERED: METF-478 PO (15:38)
[2018-08-29] MEDS ORDERED: LOSA50TA7 PO (15:38)
[2018-08-29] MEDS ORDERED: ATOR40TA70 PO (15:38)
[2018-08-29] MEDS ORDERED: ASPI-586 PO (15:38)
[2018-08-29] MEDS ORDERED: VARE1TAB22 PO (15:40)
[2018-08-29] MEDS ORDERED: IBUP-1773 PO (15:40)
== END 2018-08-29 15:35 | disposition home or self-care (01) ==
LOC: PREOP 14:58
PROVIDERS: ATTEND Podiatrist Foot & Ankle Surgery
DX: Z01.818 Encounter for other preprocedural examination (principal)
CPT/HCPCS: 87081

== ENCOUNTER 2018-08-30 11:10 | Inpatient (IN) | payer MEDICARE ==
[~2018-08-30] VITALS: Ht 193 cm; Wt 168.3 kg
[~2018-08-30 11:10] MED LIST changes: +ASPI-586 PO; +ATOR40TA70 PO; +METF-478 PO; +MINO100C2 PO; +VARE1TAB22 PO
[2018-08-30] MEDS ORDERED: ceFAZolin INJECTION 1,000 MG in NS (IVPB) 50 ML IV ONE (11:30)
[2018-08-30] MEDS: LACTATED RINGERS 1,000 ML IV PRN ×2 (11:41→14:30)
[2018-08-30] MEDS ORDERED: FAMOTIDINE 20MG/2ML IV (PEPCID) IV ONE (11:45)
[2018-08-30 12:11] VITALS: BP 111/81
[2018-08-30] MEDS ORDERED: ONDANSETRON 4 MG/2 ML (SDV) Z0FRAN ONE (13:10)
[2018-08-30] MEDS ORDERED: LIDOCAINE PF 2% 5 ML (XYLOCAINE) VIAL ONE (13:10)
[2018-08-30] MEDS ORDERED: proPOfol 200 MG/20 ML (DIPRIVAN) VIAL IV ONE (13:10)
[2018-08-30] MEDS ORDERED: SEVOFLURANE (ULTANE) 15 ML INHAL SOLN ONE ×9 (13:10→16:45)
[2018-08-30] MEDS ORDERED: fentaNYL INJECTION 100 MCG/2 ML AMP ONE ×2 (13:11→15:29)
[2018-08-30] MEDS ORDERED: MIDAZOLAM 2 MG/2 ML (VERSED) VIAL ONE (13:11)
[2018-08-30] MEDS ORDERED: ROCURONIUM 10 MG/ML 5 ML SYRINGE IV ONE (13:14)
[2018-08-30] MEDS ORDERED: SUCCINYLCHOLINE INJ 100 MG/5 ML SYR ONE (13:14)
--- NOTE | 2018-08-30 13:29 | Progress Note-Pre Operative ---
Pre-Operative Progress Note H&P Reviewed The H&P was reviewed, patient examined and no changes noted. Date Seen by Provider: Aug 30, 2018 Time Seen by Provider: 13:29 Date H&P Reviewed: Aug 30, 2018 Time H&P Reviewed: 13:29 Pre-Operative Diagnosis: Osteomyelitis, left foot LAURA GERBER DPM Aug 30, 2018 1:29 pm
[2018-08-30] MEDS ORDERED: PHENYLEPHRINE 100 MCG/ML 10 ML (ANESTHESIA) SYR ONE (13:44)
[2018-08-30] MEDS ORDERED: VANCOMYCIN 1000 MG/VIAL ONE (13:53)
--- NOTE | 2018-08-30 15:58 | Diagnostic Imaging Report ---
INDICATION: First digit amputation. TECHNIQUE: Two intraprocedural images left foot. CORRELATION STUDY: 08/21/2018 FINDINGS: Amputation of the first and second digits again demonstrated. Deformity at the third tarsometatarsal articulation with likely healing changes of an old third metatarsal fracture. Erosion at the fifth metatarsophalangeal joint concerning for potential osteomyelitis. There is a metallic density superimposed over the cuboid bone. Surgical instrumentation superimposed over the medial aspect of the foot. Fluoroscopy time: 7 seconds IMPRESSION: 1. Intraoperative localization performed of the deformed left foot. Dictated by: Dictated on workstation # [id number]
--- NOTE | 2018-08-30 17:03 | Progress Note-Post Operative ---
Post-Operative Progess Note Surgeon (s)/Boom Operator (s) Surgeon LAURA GERBER DPM Boom Operator: none Pre-Operative Diagnosis Osteomyelitis, left foot Post-Operative Diagnosis Same Procedure & Operative Findings Date of Procedure 08/30/18 Procedure Performed/Findings Transmetatarsal amputation left foot, Tibialis Anterior Tendon Transfer, Achilles Tendon Lengthening, all left foot Anesthesia Type General Estimated Blood Loss Estimated blood loss (mL): Minimal Specimens/Packing Specimens Removed Left Forefoot (toes and metatarsals) Packing: LAURA Grissom DPM Aug 30, 2018 5:03 pm
[2018-08-30] MEDS ORDERED: morphine INJ 10 MG/ML 1ML (SYR OR VIAL) IVP ONE (17:15)
[2018-08-30] MEDS ORDERED: HYDROmorphone 2 MG/ML VIAL (DILAUDID) IV ONE (17:15)
[2018-08-30] MEDS ORDERED: MEPERIDINE (DEMEROL) INJ 50 MG/ML IVP ONE (17:15)
[2018-08-30] MEDS ORDERED: ONDANSETRON 4 MG/2 ML (SDV) Z0FRAN IVP PRN (17:15)
[2018-08-30] MEDS ORDERED: fentaNYL INJECTION 100 MCG/2 ML AMP IVP ONE (17:15)
[2018-08-30] MEDS ORDERED: morphine INJ 10 MG/ML 1ML (SYR OR VIAL) IVP PRN (17:15)
--- NOTE | 2018-08-30 17:16 | Anesthesia-General Post-Op ---
General Patient Condition Mental Status/LOC: Same as Preop Cardiovascular: Satisfactory Nausea/Vomiting: Absent Respiratory: Satisfactory Pain: Controlled Complications: Absent Post Op Complications Complications None Follow Up Care/Instructions Patient Instructions None needed. Anesthesia/Patient Condition Patient Condition Patient is doing well, no complaints, stable vital signs, no apparent adverse anesthesia problems. No complications reported per nursing. JON NDIAYE CRNA Aug 30, 2018 17:16
[2018-08-30 18:10] VITALS: BP 126/72
--- NOTE | 2018-08-30 18:23 | Diagnostic Imaging Report ---
EXAMINATION: Left foot series. INDICATION: Postop osteomyelitis. COMPARISON: Comparison is made with a prior study from 08/21/2018. FINDINGS: When compared to the prior examination, there has been interval amputation of the second through fifth metacarpals and associated toes. A prior great toe amputation with ossification at the prior great toe ossification level is unchanged. A surgical drain is in place. There is a clip projecting over the cuboid. There are some postsurgical gas demonstrated about the amputation sites. IMPRESSION: 1. Interval second through fifth amputations at the level of the mid to proximal metatarsal. Prior amputation and ossification at the great toe amputation site is unchanged. Surgical drain is in place with some expected postsurgical gas. There is a nonspecific clip projecting over the cuboid on both views. Dictated by: Dictated on workstation # [id number]
[2018-08-30 19:15] VITALS: BP 130/75
[2018-08-30] MEDS: HYDROcodone/APAP 5 MG/325 MG (LORTAB) TAB PO PRN (19:57)
[2018-08-30] MEDS: LACTATED RINGERS 1,000 ML IV SCH (20:43)
--- NOTE | 2018-08-30 23:35 | OPERATIVE REPORT ---
DATE OF SERVICE: 08/30/2018 SURGEON: Ml Gerber DPM PREOPERATIVE DIAGNOSIS: Osteomyelitis, left 5th metatarsal and digit. POSTOPERATIVE DIAGNOSIS: Osteomyelitis, left 5th metatarsal and digit. PROCEDURES: 1. Transmetatarsal amputation, left foot. 2. Tibialis anterior tendon transfer, left foot. 3. Achilles tendon lengthening, left foot. WOUND CLASS: Contaminated. ANESTHESIA: General. HEMOSTASIS: Pneumatic thigh tourniquet at 350 mmHg. INDICATIONS: This 53-year-old male presents with a chronic ulceration to the left 5th metatarsophalangeal joint area. The ulceration became infected and then infection resulted in osteomyelitis involving the distal diaphysis of the 5th metatarsal as well as the proximal phalanx. The patient has had a previous amputation of the first ray, left foot. He also has a [id number] amputation on the right lower extremity. It was decided that it was in his best interest to have a transmetatarsal amputation of the left lower extremity to avoid further complications as much as possible. He is agreeable to this intervention after risks and complications were discussed at length. No guarantees were extended to the patient and he is willing to proceed. DESCRIPTION OF PROCEDURE: The patient was brought back to the operative table, placed in secure supine position. Appropriate timeout was performed. General anesthetic was then induced. Pneumatic thigh tourniquet was placed on the left lower extremity over several layers of padding. The right foot was then prepped and draped in normal sterile manner. The right foot was then elevated and allowed to exsanguinate after which the tourniquet was inflated to 350 mmHg Attention was then directed to the dorsal aspect of the left foot where a previous marked tibialis anterior was noted to the anterior aspect of the foot and ankle. A 2 cm longitudinal linear incision was created overlying the tendon and blunt dissection was carefully performed down to the tendon sheath where the tendon was identified. Next, utilizing fluoroscopy, the tibialis anterior was identified to the first metatarsal cuneiform joint. Incision was created approximately 3.5 cm. Blunt dissection was carefully carried out down to the attachment of the tibialis anterior where it was incised and pulled proximally through the proximal incision. The wound was flushed with copious amounts of normal saline throughout the procedure Next, utilizing fluoroscopy, the cuboid was identified. A 2 cm longitudinal linear incision was created. Blunt dissection was carried out carefully down to the cuboid where a GII Mitek anchor. The transport pilot hole was created and the G2 Mitek anchor was then secured within the cuboid bone. Next, the tendon was then passed through its proximal incision to the lateral distal incision after the distal portion of the tendon was whipstitched and pulled through underneath the extensor retinaculum. The suture material with a GII Mitek anchor was utilized to secure the tendon in its new position. Excellent tensile strength was noted at this time. The wounds were flushed with copious amounts of normal saline and all 3 incisions were approximated with 4-0 Vicryl to the subcutaneous tissue and 4-0 Prolene in a simple interrupted type stitch for skin closure. The proximal incisions were protected by a sterile barrier after which a transmetatarsal amputation was then performed to the left forefoot. Two incisions were created. The first was to the proximal diaphysis of the metatarsals from medial to lateral. The second was extended from the medial aspect of the original incision extending distally to the sulcus of the toes. The digits were disarticulated and sent for gross and microscopic evaluation. Utilizing a power sagittal saw, the 2nd, 3rd, 4th, 5th metatarsals were cut in a parabola. These were sent for gross and microscopic evaluation. A second piece of 5th metatarsal was cut and sent for cultures to confirm that we were proximal to the infection site. There was no pathology at this proximal portion of the 5th metatarsal. There appeared to be a small abscess to the plantar flap of the distal left 2nd metatarsal area. This was sharply debrided and cleansed. No deep abscess was identified in any other area. There was a full-thickness wound to the plantar lateral aspect of the 5th metatarsophalangeal joint area. This was sharply cut leaving a deficit to the plantar flap. The wound was pulse irrigated with 3000 mL with 1 gram of vancomycin. After this, the extensor and flexor tendons were cut as proximally as possible. The tourniquet was released and cauterizing all active bleeders. The remaining plantar flap was revised and applied dorsally without tension and sutured in place utilizing 4-0 Prolene in a simple interrupted type stitch. There remained some dorsal skin that was flapped plantarly that again was sutured utilizing 4-0 Prolene in a simple interrupted type stitch. There remained a gap of approximately 4 x 3 cm. This area was covered with Stravix 3 x 6 cm graft, which was then sutured it in place utilizing a 4-0 Vicryl in a simple interrupted type stitch. A Romero-Maldonado drain was applied prior to the skin closure. The drain did exit the plantar distal lateral aspect of the remaining left forefoot. Once the tourniquet was released, appropriate capillary refill time was noted to the plantar and dorsal flaps of the amputation site, left foot. Postoperative injection consisted of 20 mL of 0.5% Marcaine injected in a local infusion to the surgical site. Utilizing an 11 blade, 3 stab incisions were created to perform a percutaneous tendo Achilles lengthening. The first stab incision was created from medial to lateral to the medial aspect of the Achilles tendon approximately 2 cm proximal to its attachment where the medial third was released. A second stab incision was created approximately 2 cm proximal to the first to the medial aspect of the Achilles tendon. Final was on the lateral aspect of the Achilles tendon prison in between the first 2 but was from the lateral half of the Achilles. The tendo Achilles was then stretched and the area was cleansed after which it was anesthetized utilizing 3 mL of 0.5% Marcaine plain. Betadine-soaked Adaptic, sterile 4 x 4s and Kerlix were then applied. The foot was then dressed with Betadine-soaked Adaptic to the incision site of the left remaining forefoot with the exception of the Stravix area, which had a plain Adaptic applied, sterile 4 x 4s, Kerlix, soft roll. The application of a posterior splint 4 inch wide secured with Mauricio wraps. The patient tolerated the anesthesia and procedure well and was transported from the operating room to the recovery area with vital signs stable and vascular status intact to the remaining left forefoot. He is to follow up in my office in approximately 10 days' period of time or sooner if necessary. Job ID: [id number] DocumentID: [id number] Dictated Date: 08/30/2018 17:26:28 Fan Mail Editor Date: 08/30/2018 23:34:42 Dictated By: ML GERBER DPM
[2018-08-31] VITALS (7 sets, daily range): BP systolic 96–132; BP diastolic 57–75
[2018-08-31] MEDS: HYDROcodone/APAP 5 MG/325 MG (LORTAB) TAB PO PRN ×4 (03:01→16:55)
[2018-08-31] MEDS: LACTATED RINGERS 1,000 ML IV SCH ×3 (03:02→13:45)
--- NOTE | 2018-08-31 10:15 | Physical Therapy Ortho Eval ---
PT Orthopedic Evaluation Type of Surgery transmetatarsal amputation left foot. Prior Level of Function Current Living Status: Alone Locomotion (Upon Admit): Independent (BKA right with prosthesis) Established Durable Medical Eq: Manual Wheelchair Pt reports he has a manual wheelchair; denies any other equipment at home. He used to have a lift recliner, but it is broken. Subjective Subjective Pt reports he lives at home alone and does not have any help. Reports his wheelchair does not fit in his bathroom or bedroom. Reports he has 3 steps to enter his home. Entry Into Home: Stairs Without Railing Steps Into Home: 3 Steps Inside Home: 0 Objective Objective BKA right LE with prosthesis; transmetatarsal amputation (08/30/18) left foot and is NWB due to this. Motor Control Motor Control: Motor Control WNL ROM ROM: WFL Strength Strength: WFL Strength is functional; he has difficulty with sit to stand due to his height and only having his right LE to bear weight through. Transfer Pt is indep with bed mobility and sitting EOB. He is able to stand from an elevated bed surface with FWW with CGA with prosthesis right and NWB left. He demonstrated the ability to hop to turn to his right to the chair and then hop back to the left to the bed. Completed this with the FWW and CGA. He did not sit in the chair as it is low and concern that he would not be able to stand up from it. He did not require assist with SPT with FWW but feel CGA necessary for safety. Gait Gait Assistive Device: FWW Right Lower Extremity: Right Weight Bearing Status RLE: Full Weight Bearing Left Lower Extremity: Left Weight Bearing Status LLE: Non Weight Bearing Gait (FIM): 0 (unable to ambulate ) Treatment Rendered Treatment: Reviewed Precautions Treatment consisted of education on NWB status and problem solving his home situation. Nurse present and aware that he is unable to access his bathroom with his wheelchair and he is unable to get up his porch steps in a wheelchair. He is able to hop small hops to SPT left and right, but recommend CGA at this time for safety. He does maintain NWB left. He is indep with bed mobility and to apply his prosthesis. He was also able to put his underwear and shorts on as well. Assessment/Goals Goal Time Frame: 2-3 visits (if he remains in the hospital) Pt is able to safely perform bed mobility; recommend CGA with transfers with FWW with NWB left. Pt currently does not have a functional plan for discharge due to structural barriers in his home from a wheelchair level. Nursing aware of such barriers. Plan Treatment Plan: Education, Functional Activity Tolerated, Functional Strength, Safety, Transfers Treatment Duration: 2-3 visits Visits Per Week: 3 PT/Family Agrees to Plan: Yes Time Time In: 915 Time Out: 945 Total Billed Treatment Time: 30 Billed Treatment Time visit EVM 15 FA 15 Yes PT/OT Therapy GCodes Therapy Functional Limitation: Physical Therapy Test(s)/Tool used to determine: Level of Assistance Scale Functional Limitation-Current Charge Code: MOBCUR Modifier: CK Functional Limitation-Goal Charge Code: MOBGOAL Modifier: SHANTANU DEE PT Aug 31, 2018 10:15
--- NOTE | 2018-08-31 10:53 | Anesthesia-General Post-Op ---
General Patient Condition Mental Status/LOC: Same as Preop Cardiovascular: Satisfactory Nausea/Vomiting: Absent Respiratory: Satisfactory Pain: Controlled Complications: Absent Post Op Complications Complications None Follow Up Care/Instructions Patient Instructions None needed. Anesthesia/Patient Condition Patient Condition Patient is doing well, no complaints, stable vital signs, no apparent adverse anesthesia problems. No complications reported per nursing. JON NDIAYE CRNA Aug 31, 2018 10:53
--- NOTE | 2018-08-31 12:04 | Consultation (CHS) ---
HPI History of Present Illness: Asked to consult on patient for medical management s/p surgery. Patient had left transmetatarsal amputation. Patient was suppose to be able to d/c home after surgery but PT was uncomfortable with patient returning home due to debility. IDDM: Patient has had DM for over 20 years. States that his last A1c was 8.2 which is good for him. PVD: multiple amputations HTN: Controlled on ACEI Source: patient Exam Limitations: no limitations Date seen by provider: Aug 31, 2018 Time Seen by Provider: 11:00 Attending Physician Ml Grace Dpm PCP [place] Consult Date of Admission Aug 30, 2018 at 18:15 Home Medications Home Medications Reviewed patient Home Medication Reconciliation performed by pharmacy medication reconciliations photographic equipment technician and/or nursing. Patients Allergies have been reviewed. Allergies Coded Allergies: pregabalin (Unverified Allergy, Severe, FEVER, 04/26/15) WEF-Mubvlw-Kglfst Hx Patient Social History Living Status: Lives home alone Alcohol Use: Denies Use Recreational Drug Use: No Drug of Choice: E.D. REPORT: HX OF METH, LSD,ECSTASY,CRACK COCAINE, MUSHROOMS Smoking Status: Current Everyday Smoker Type Used: Cigarettes 2nd Hand Smoke Exposure: Yes Recent Foreign Travel: No Contact w/other who traveled: No Recent Hopitalizations: No Recent Infectious Disease Expo: No Immunizations Up To Date Tetanus Booster (TDap): Unknown Date of Pneumonia Vaccine: Sep 19, 2011 Date of Influenza Vaccine: May 28, 2018 Past Medical History PMHx: Chronic pain IDDMII HTN HLD Atherosclerotic occlusive disease with R BKA SurgHx: Right BKA Left great toe, 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 Left thigh hematoma evacuation Family Medical History Significant Family History: Heart Disease, Diabetes Family History: Cardiovascular disease 19 FATHER ( heart attack) G8 BROTHER Diabetes mellitus 19 MOTHER ( complications diabetes) Psychosocial problem G8 BROTHER (in senior living) Review of Systems (CHC) Constitutional: no symptoms reported; No chills, No fever EENTM: no symptoms reported Respiratory: no symptoms reported; No cough, No dyspnea on exertion, No short of breath Cardiovascular: no symptoms reported; No chest pain, No edema, No palpitations Gastrointestinal: no symptoms reported; No abdominal pain, No constipation, No diarrhea, No nausea, No vomiting Genitourinary: no symptoms reported; No dysuria, No frequency, No hematuria Musculoskeletal: other (h/o R AKA) Psychiatric/Neurological: No Symptoms Reported Reviewed Test Results Reviewed Test Results Lab Laboratory Tests Test 08/31/18 12:06 08/31/18 15:50 Range/Units White Blood Count 10.3 4.3-11.0 10^3/uL Red Blood Count 4.24 L 4.35-5.85 10^6/uL Hemoglobin 12.2 L 13.3-17.7 G/DL Hematocrit 37 L 40-54 % Mean Corpuscular Volume 88 80-99 FL Mean Corpuscular Hemoglobin 29 25-34 PG Mean Corpuscular Hemoglobin Concent 33 32-36 G/DL Red Cell Distribution Width 13.4 10.0-14.5 % Platelet Count 152 130-400 10^3/uL Mean Platelet Volume 9.7 7.4-10.4 FL Neutrophils (%) (Auto) 67 42-75 % Lymphocytes (%) (Auto) 19 12-44 % Monocytes (%) (Auto) 11 0-12 % Eosinophils (%) (Auto) 3 0-10 % Basophils (%) (Auto) 0 0-10 % Neutrophils # (Auto) 6.9 1.8-7.8 X 10^3 Lymphocytes # (Auto) 1.9 1.0-4.0 X 10^3 Monocytes # (Auto) 1.1 H 0.0-1.0 X 10^3 Eosinophils # (Auto) 0.3 0.0-0.3 10^3/uL Basophils # (Auto) 0.0 0.0-0.1 10^3/uL Sodium Level 134 L 135-145 MMOL/L Potassium Level 4.3 3.6-5.0 MMOL/L Chloride Level 99 98-107 MMOL/L Carbon Dioxide Level 23 21-32 MMOL/L Anion Gap 12 5-14 MMOL/L Blood Urea Nitrogen 14 7-18 MG/DL Creatinine 0.80 0.60-1.30 MG/DL Estimat Glomerular Filtration Rate > 60 BUN/Creatinine Ratio 18 Glucose Level 155 H 70-105 MG/DL Calcium Level 8.8 8.5-10.1 MG/DL Corrected Calcium 9.4 8.5-10.1 MG/DL Total Bilirubin 0.6 0.1-1.0 MG/DL Aspartate Amino Transf (AST/SGOT) 15 5-34 U/L Alanine Aminotransferase (ALT/SGPT) 20 0-55 U/L Alkaline Phosphatase 97 40-136 U/L Total Protein 7.2 6.4-8.2 GM/DL Albumin 3.3 3.2-4.5 GM/DL Glucometer 197 H 70-110 MG/DL Physical Exam-(CHC) Physical Exam Vital Signs VS - Last 72 Hours, by Label 08/30/18 08/30/18 08/30/18 08/30/18 12:11 18:10 18:43 19:15 Temp 98.4 97.8 97.3 Pulse 78 81 77 Resp 18 20 16 B/P (MAP) 111/81 (91) 126/72 (90) 130/75 (93) Pulse Ox 93 94 94 99 O2 Delivery Room Air Nasal Cannula Nasal Cannula Nasal Cannula O2 Flow Rate 5.00 5.00 5.00 08/31/18 08/31/18 08/31/18 08/31/18 00:00 04:00 08:00 08:00 Temp 97.4 98.5 98.4 Pulse 71 78 69 Resp 20 20 20 B/P (MAP) 96/58 (71) 110/57 (74) 128/72 (90) Pulse Ox 98 99 92 O2 Delivery Nasal Cannula Nasal Cannula Nasal Cannula Room Air O2 Flow Rate 5.00 5.00 5.00 08/31/18 08/31/18 08:44 12:00 Temp 98.1 Pulse 74 Resp 20 B/P (MAP) 127/73 (91) Pulse Ox 93 O2 Delivery Nasal Cannula Room Air O2 Flow Rate 5.00 Capillary Refill : General Appearance: WD/WN, no apparent distress, obese Respiratory: chest non-tender, no respiratory distress, no accessory muscle use , crackles, other (diminished breath sounds at the bases) Cardiovascular: regular rate, rhythm, no murmur Gastrointestinal: normal bowel sounds, non tender, soft, no organomegaly Back: no CVA tenderness, no vertebral tenderness Extremities: other (Left bandage in place) Neurologic/Psychiatric: visual presentation manager II-XII nml as tested, normal mood/affect, oriented x 3 Skin: normal color, warm/dry Lymphatic: no adenopathy Assessment/Plan Assessment/Plan Admission Status: Inpatient Order (span 2 midnights) Reason for Inpatient Admission: Needs wound care, IV antibiotics and PT (1) Osteomyelitis of left foot Status: Chronic Assessment & Plan: POD #1 s/p Left transmetatarsal amputation, managed by Dr Grace Qualifiers: Qualified Codes: M86.672 - Other chronic osteomyelitis, left ankle and foot (2) Peripheral vascular disease Status: Chronic Assessment & Plan: - Patient has AKA on Right and Left transmetatarsal amputation, holding plavix and ASA at this time due to continued oozing from wound (3) IDDM (insulin dependent diabetes mellitus) Status: Chronic Assessment & Plan: - A1c pending, started on home insulin with SSI (4) Hypertension Status: Chronic Assessment & Plan: - Continue home meds Qualifiers: Qualified Codes: I10 - Essential (primary) hypertension (5) Hyperlipidemia Status: Chronic Assessment & Plan: - Continue home meds Qualifiers: Qualified Codes: E78.2 - Mixed hyperlipidemia (6) BMI 40.0-44.9, adult Status: Chronic (7) DVT prophylaxis Status: Acute (8) Debility Status: Acute Assessment & Plan: - SW consult placed, patient may need SNF vs Rehab Clinical Quality Measures DVT/VTE Risk/Contraindication: Risk Factor Score Per Nursin RFS Level Per Nursing on Admit: 3=High Copy Copies To 1: Senia SHEIKH APRN, HOLLY R MD Aug 31, 2018 12:04
[2018-08-31 12:17] LABS: BASOPHILS % (AUTO) 0 % (0-10); EOSINOPHILS # (AUTO) 0.3 10^3/uL (0.0-0.3); EOSINOPHILS % (AUTO) 3 % (0-10); HEMATOCRIT 37 % (40-54); HEMOGLOBIN 12.2 G/DL (13.3-17.7); LYMPHOCYTES # (AUTO) 1.9 X 10^3 (1.0-4.0); LYMPHOCYTES % (AUTO) 19 % (12-44); MEAN CORPUSCULAR HEMOGLOBIN 29 PG (25-34); MEAN CORPUSCULAR HGB CONC 33 G/DL (32-36); MEAN CORPUSCULAR VOLUME 88 FL (80-99); MEAN PLATELET VOLUME 9.7 FL (7.4-10.4); MONOCYTES # (AUTO) 1.1 X 10^3 (0.0-1.0); MONOCYTES % (AUTO) 11 % (0-12); NEUTROPHILS # (AUTO) 6.9 X 10^3 (1.8-7.8); NEUTROPHILS % (AUTO) 67 % (42-75); PLATELET COUNT 152 10^3/uL (130-400); RED BLOOD COUNT 4.24 10^6/uL (4.35-5.85); RED CELL DISTRIBUTION WIDTH 13.4 % (10.0-14.5); WHITE BLOOD COUNT 10.3 10^3/uL (4.3-11.0)
[2018-08-31 12:33] LABS: ALANINE AMINOTRANSFERASE 20 U/L (0-55); ALBUMIN 3.3 GM/DL (3.2-4.5); ALKALINE PHOSPHATASE 97 U/L (40-136); BILIRUBIN,TOTAL 0.6 MG/DL (0.1-1.0); BUN/CREATININE RATIO 18; CALCIUM 8.8 MG/DL (8.5-10.1); CARBON DIOXIDE 23 MMOL/L (21-32); CHLORIDE 99 MMOL/L (98-107); GFR ESTIMATED > 60; GLUCOSE 155 MG/DL (70-105); POTASSIUM 4.3 MMOL/L (3.6-5.0); SODIUM 134 MMOL/L (135-145); TOTAL PROTEIN 7.2 GM/DL (6.4-8.2)
--- NOTE | 2018-08-31 13:43 | Podiatry Progress Note ---
Standard Progress Note Progress Notes/Assess & Plan Date Seen by a Provider: Aug 31, 2018 Time Seen by a Provider: 13:38 Progress/Assessment & Plan POD #1. S/P transmetatarsal amputation with tendon transfer left foot due to osteomyelitis. The patient is doing well with no reported pain, no F/C/N/V. He has had some drainage which was noted to the [place] drain and also to the dressing. Awaiting final bone cultures taken during surgery. He is to remain non-weight bearing left foot. Dressing changes per Dr. Gerber. Final Diagnosis transmetatarsal amputation with tendon transfer left foot due to osteomyelitis LAURA GERBER DPM Aug 31, 2018 13:43
[2018-08-31] MEDS ORDERED: PANTOPRAZOLE 40 MG (PROTONIX) TAB PO PRN (16:45)
[2018-08-31] MEDS: GABAPENTIN 600 MG (NEURONTIN) TAB PO SCH (20:43)
[2018-08-31] MEDS: inSUlin DETERMIR 1 UNIT/0.01 ML (LEVEMIR) CHARGE PER UNIT SQ SCH (20:44)
[2018-08-31] MEDS: ATORVASTATIN 40 MG (LIPITOR) TABLET PO SCH (20:44)
[2018-09-01] MEDS: HYDROcodone/APAP 5 MG/325 MG (LORTAB) TAB PO PRN ×3 (03:42→17:10)
[2018-09-01 04:09] VITALS: BP 143/67
[2018-09-01 04:51] LABS: BASOPHILS % (AUTO) 0 % (0-10); EOSINOPHILS # (AUTO) 0.3 10^3/uL (0.0-0.3); EOSINOPHILS % (AUTO) 3 % (0-10); HEMATOCRIT 38 % (40-54); HEMOGLOBIN 12.3 G/DL (13.3-17.7); LYMPHOCYTES # (AUTO) 1.6 X 10^3 (1.0-4.0); LYMPHOCYTES % (AUTO) 18 % (12-44); MEAN CORPUSCULAR HEMOGLOBIN 28 PG (25-34); MEAN CORPUSCULAR HGB CONC 33 G/DL (32-36); MEAN CORPUSCULAR VOLUME 87 FL (80-99); MEAN PLATELET VOLUME 9.8 FL (7.4-10.4); MONOCYTES # (AUTO) 1.1 X 10^3 (0.0-1.0); MONOCYTES % (AUTO) 12 % (0-12); NEUTROPHILS % (AUTO) 66 % (42-75); PLATELET COUNT 145 10^3/uL (130-400); RED BLOOD COUNT 4.33 10^6/uL (4.35-5.85); RED CELL DISTRIBUTION WIDTH 13.5 % (10.0-14.5); WHITE BLOOD COUNT 9.1 10^3/uL (4.3-11.0)
[2018-09-01 05:13] LABS: ALANINE AMINOTRANSFERASE 19 U/L (0-55); ALBUMIN 3.2 GM/DL (3.2-4.5); ALKALINE PHOSPHATASE 98 U/L (40-136); BILIRUBIN,TOTAL 0.7 MG/DL (0.1-1.0); BUN/CREATININE RATIO 15; CALCIUM 9.3 MG/DL (8.5-10.1); CARBON DIOXIDE 26 MMOL/L (21-32); CHLORIDE 100 MMOL/L (98-107); CREATININE SERUM 0.74 MG/DL (0.60-1.30); GFR ESTIMATED > 60; GLUCOSE 154 MG/DL (70-105); SODIUM 135 MMOL/L (135-145); TOTAL PROTEIN 7.3 GM/DL (6.4-8.2)
[2018-09-01 08:00] VITALS: BP 127/75
--- NOTE | 2018-09-01 08:31 | Podiatry Progress Note ---
Standard Progress Note Progress Notes/Assess & Plan Date Seen by a Provider: Sep 01, 2018 Time Seen by a Provider: 08:27 Progress/Assessment & Plan POD #2. S/P transmetatarsal amputation with tendon transfer left foot due to osteomyelitis. The patient reports no pain, no F/C/N/V. Minimal drainage which was noted to the [place] drain and also to the dressing. Awaiting final bone cultures taken during surgery. He is to remain non-weight bearing left foot. The graft is holding up well, sutures intact with no dehiscence. Removed drain, left foot. New sterile dressing applied. Remain non-weight bearing. Transition to oral antibiotics pending results of cultures. Once he has a ramp build at his home, he is able to go home from podiatry standpoint. Final Diagnosis Osteomyelitis, left foot. S/P transmetatarsal amputation left. LAURA GERBER DPM Sep 01, 2018 08:31
[2018-09-01] MEDS ORDERED: NON-FORMULARY MEDICATION 1 EA EA (Losartan Potassium 50 MG) PO SCH (09:00)
[2018-09-01] MEDS: LOSARTAN 50 MG (COZAAR) TAB PO SCH (09:22)
[2018-09-01] MEDS: GABAPENTIN 600 MG (NEURONTIN) TAB PO SCH ×3 (09:22→21:29)
[2018-09-01] MEDS: inSUlin DETERMIR 1 UNIT/0.01 ML (LEVEMIR) CHARGE PER UNIT SQ SCH ×2 (09:23→21:29)
--- NOTE | 2018-09-01 10:51 | Progress Note (SOAP) ---
Subjective Subjective/Events-last exam Pain controlled with PO meds. States that he has family building a ramp at his home Review of Systems Date Seen by Provider: Sep 01, 2018 Time Seen by Provider: 09:15 Pulmonary: Dyspnea Cardiovascular: No: Chest Pain, Palpitations Neurological: Weakness Objective Exam Last Set of Vital Signs Vital Signs Date Time Temp Pulse Resp B/P (MAP) Pulse Ox O2 Delivery O2 Flow Rate FiO2 09/01/18 08:00 Room Air 09/01/18 08:00 97.7 71 20 127/75 (92) 95 08/31/18 08:44 5.00 Capillary Refill : Less Than 3 Seconds I&O Intake and Output 09/01/18 00:00 Intake Total 4530 ml Output Total 2770 ml Balance 1760 ml Intake Oral 2540 ml IV Total 1990 ml Output Urine Total 2750 ml Drainage Total 20 ml # Voids 5 General: Alert, Oriented X3, No Acute Distress Lungs: Normal Air Movement, Other (diminished breath sounds at the bases) Abdomen: Normal Bowel Sounds, Soft, No Tenderness, No Hepatosplenomegaly, No Masses Extremities: Other (R AKA, Left bandage on foot) Neuro: Cranial Nerves 3-12 NL Results/Procedures Lab Laboratory Tests 08/31/18 12:06: White Blood Count 10.3, Red Blood Count 4.24L, Hemoglobin 12.2L, Hematocrit 37L , Mean Corpuscular Volume 88, Mean Corpuscular Hemoglobin 29, Mean Corpuscular Hemoglobin Concent 33, Red Cell Distribution Width 13.4, Platelet Count 152, Mean Platelet Volume 9.7, Neutrophils (%) (Auto) 67, Lymphocytes (%) (Auto) 19, Monocytes (%) (Auto) 11, Eosinophils (%) (Auto) 3, Basophils (%) (Auto) 0, Neutrophils # (Auto) 6.9, Lymphocytes # (Auto) 1.9, Monocytes # (Auto) 1.1H, Eosinophils # (Auto) 0.3, Basophils # (Auto) 0.0, Sodium Level 134L, Potassium Level 4.3, Chloride Level 99, Carbon Dioxide Level 23, Anion Gap 12, Blood Urea Nitrogen 14, Creatinine 0.80, Estimat Glomerular Filtration Rate > 60, BUN/ Creatinine Ratio 18, Glucose Level 155H, Calcium Level 8.8, Corrected Calcium 9.4, Total Bilirubin 0.6, Aspartate Amino Transf (AST/SGOT) 15, Alanine Aminotransferase (ALT/SGPT) 20, Alkaline Phosphatase 97, Total Protein 7.2, Albumin 3.3 08/31/18 15:50: Glucometer 197H 08/31/18 20:37: Glucometer 212H 09/01/18 04:20: White Blood Count 9.1, Red Blood Count 4.33L, Hemoglobin 12.3L, Hematocrit 38L, Mean Corpuscular Volume 87, Mean Corpuscular Hemoglobin 28, Mean Corpuscular Hemoglobin Concent 33, Red Cell Distribution Width 13.5, Platelet Count 145, Mean Platelet Volume 9.8, Neutrophils (%) (Auto) 66, Lymphocytes (%) (Auto) 18, Monocytes (%) (Auto) 12, Eosinophils (%) (Auto) 3, Basophils (%) (Auto) 0, Neutrophils # (Auto) 6.0, Lymphocytes # (Auto) 1.6, Monocytes # (Auto) 1.1H, Eosinophils # (Auto) 0.3, Basophils # (Auto) 0.0, Sodium Level 135, Potassium Level 4.0, Chloride Level 100, Carbon Dioxide Level 26, Anion Gap 9, Blood Urea Nitrogen 11, Creatinine 0.74, Estimat Glomerular Filtration Rate > 60, BUN/ Creatinine Ratio 15, Glucose Level 154H, Calcium Level 9.3, Corrected Calcium 9.9, Total Bilirubin 0.7, Aspartate Amino Transf (AST/SGOT) 15, Alanine Aminotransferase (ALT/SGPT) 19, Alkaline Phosphatase 98, Total Protein 7.3, Albumin 3.2 09/01/18 05:07: Glucometer 142H Microbiology 08/30/18 Gram Stain - Final, Resulted 08/30/18 Anaerobic Culture, Resulted Pending 08/30/18 Surgical Culture - Preliminary, Resulted Pseudomonas species 08/30/18 Fungal Culture 1, Resulted Pending Assessment/Plan Assessment/Plan (1) Osteomyelitis of left foot Status: Chronic Assessment & Plan: POD #2 s/p Left transmetatarsal amputation, managed by Dr Grace Qualifiers: Qualified Codes: M86.672 - Other chronic osteomyelitis, left ankle and foot (2) Peripheral vascular disease Status: Chronic Assessment & Plan: - Patient has AKA on Right and Left transmetatarsal amputation, holding plavix and ASA at this time due to continued oozing from wound (3) IDDM (insulin dependent diabetes mellitus) Status: Chronic Assessment & Plan: - A1c pending, started on home insulin with SSI (4) Hypertension Status: Chronic Assessment & Plan: - Continue home meds Qualifiers: Qualified Codes: I10 - Essential (primary) hypertension (5) Hyperlipidemia Status: Chronic Assessment & Plan: - Continue home meds Qualifiers: Qualified Codes: E78.2 - Mixed hyperlipidemia (6) BMI 40.0-44.9, adult Status: Chronic (7) DVT prophylaxis Status: Acute (8) Debility Status: Acute Assessment & Plan: - SW consult placed, patient may need SNF vs Rehab 09/01: Patient desires to return home, family building ramp into home, no stairs in home, Likely d/c tomorrow Clinical Quality Measures DVT/VTE Risk/Contraindication: Risk Factor Score Per Nursin RFS Level Per Nursing on Admit: 3=High KELSEA BLAIR MD Sep 01, 2018 10:51
[2018-09-01 12:00] VITALS: BP 157/90
[2018-09-01 16:08] VITALS: BP 133/80
[2018-09-01 19:59] VITALS: BP 104/60
[2018-09-01] MEDS: ATORVASTATIN 40 MG (LIPITOR) TABLET PO SCH (21:29)
[2018-09-02 00:40] VITALS: BP 128/64
[2018-09-02] MEDS: HYDROcodone/APAP 5 MG/325 MG (LORTAB) TAB PO PRN ×3 (02:37→12:50)
[2018-09-02 04:10] VITALS: BP 130/63
[2018-09-02 07:16] VITALS: BP 114/65
[2018-09-02] MEDS: GABAPENTIN 600 MG (NEURONTIN) TAB PO SCH ×2 (08:09→12:51)
[2018-09-02] MEDS: inSUlin DETERMIR 1 UNIT/0.01 ML (LEVEMIR) CHARGE PER UNIT SQ SCH (08:10)
--- NOTE | 2018-09-02 08:31 | Physical Therapy Evaluation ---
PT Evaluation-General Medical Diagnosis Admission Date Aug 30, 2018 at 18:15 Height/Weight Height (Feet): 6 Height (Inches): 4.00 Weight (Pounds): 371 Weight (Ounces): 0.0 Precautions Precautions/Isolations: Fall Prevention, Standard Precautions Weight Bear Status Right Lower Extremity: Right Full Weight Bearing Left Lower Extremity: Left Non Weight Bearing Medical History Pertinent Medical History: DM Social History Entry Into Home: Stairs Without Railing PT Steps Into Home: 3 PT Steps Inside Home: 0 Prior/Core FIM Prior Level of Function Functional [place] Measure 0=Not Assessed/NA 4=Minimal Assistance 1=Total Assistance 5=Supervision or Setup 2=Maximal Assistance 6=Modified [place] 3=Moderate Assistance 7=Complete [place] PT Evaluation-Current Objective Attachments: Oxygen, Drains, Hurtado Catheter, IV Transfers Functional [place] Measure 0=Not Assessed/NA 4=Minimal Assistance 1=Total Assistance 5=Supervision or Setup 2=Maximal Assistance 6=Modified [place] 3=Moderate Assistance 7=Complete [place] PT Plan Treatment/Plan Patient and/or Family Agrees t: Yes Time/GCodes G Codes Necessary: Yes PT/OT Therapy GCodes Therapy Functional Limitation: Physical Therapy Test(s)/Tool used to determine: Level of Assistance Scale Functional Limitation-Current Charge Code: MOBCUR Modifier: CK Functional Limitation-Goal Charge Code: MOBGOAL Modifier: MYA RIGGINS PT Sep 02, 2018 08:31
[2018-09-02] MEDS ORDERED: CEPH500C PO (08:56)
[2018-09-02] MEDS: ceFAZolin INJECTION 1,000 MG in NS (IVPB) 50 ML IV SCH ×2 (09:21→15:04)
[2018-09-02] MEDS: LOSARTAN 50 MG (COZAAR) TAB PO SCH (09:22)
--- NOTE | 2018-09-02 10:25 | Physical Therapy Daily Note ---
PT Daily Note-Current Subjective Patient reports he hope to go home today. He also reports the ramp is done. Pain Numeric Pain Scale: 0-No Pain Location: No Pain Reported Mental Status Patient Orientation: Normal For Age Transfers Functional [place] Measure 0=Not Assessed/NA 4=Minimal Assistance 1=Total Assistance 5=Supervision or Setup 2=Maximal Assistance 6=Modified [place] 3=Moderate Assistance 7=Complete IndependenceIRFPAI Quality Coding Scale 6 Independent with activity with or without an assistive device 5 Patient requires set up or clean up by helper. Patient completes activity by themselves 4 Supervision or touching assist (CGA). [place] provide cues , steadying assist 3 The helper provides less than half the effort to complete the activity 2 The helper provides more than half the effort to complete the activity 1 Dependent. The helper does all the effort to complete an activity 7 Patient refused to complete or attempt activity 9 The patient did not perform the activity before the current illness or injury 88 Not attempted due to Medical conditions or safety concerns Transfers (B, C, W/C) (FIM): 6 Scootin Rollin Supine to/from Sit: 6 Sit to/from Stand: 6 Patient demonstrated transfer technique he will utilize at home which, in his case, is safe. Weight Bearing Right Lower Extremity: Right Full Weight Bearing Left Lower Extremity: Left Non Weight Bearing Assessment Patient is currently at [facility] with all gross motor skills safely and, from a PT standpoint, is safe to return to home with family. Patient will require a FWW for home use. SW notified. PT Plan Treatment/Plan Treatment Plan: Discontinue PT, goals met Treatment Plan: Other Treatment Duration: Sep 02, 2018 Frequency: 6 times per week Estimated Hrs Per Day: .25 hour per day Patient and/or Family Agrees t: Yes Safety Risks/Education Patient Education: Gait Training, Transfer Techniques Discharge Recommendations Therapy D/C Recommendations: Home w/ Family Support Equpiment Recommendations-D/C: Front Wheeled Walker Time/GCodes Time In: 905 Time Out: 920 Total Billed Treatment Time: 15 Total Billed Treatment 1 visit FA 15 min G Codes Necessary: Yes PT/OT Therapy GCodes Therapy Functional Limitation: Physical Therapy Test(s)/Tool used to determine: Level of Assistance Scale Functional Limitation-Current Charge Code: MOBCUR Modifier: CK Functional Limitation-Goal Charge Code: MOBGOAL Modifier: CI Functional Limitation-D/C Charge Codes: MOBDC Modifier: MYA RIGGINS PT Sep 02, 2018 10:25
[2018-09-02 12:08] VITALS: BP 137/74
[2018-09-02] MEDS ORDERED: ACHD5005 PO (12:39)
--- NOTE | 2018-09-02 12:42 | Discharge Inst-Simple/Standard ---
Discharge Inst-Standard Patient Instructions/Follow Up Plan of Care/Instructions/FU: No weight to the left foot. Keep dressing dry, clean and intact, left foot. Call officed for follow up appointment ([phone]). Activity as Tolerated: No ( n) Goal: Complete healing of the left foot. No falls. Discharge Diet: ADA Diet Return to The Hospital For: Excessive pain or bleeding, Fever, Chills, Nausia or Vomiting. LAURA GERBER DPM Sep 02, 2018 12:42
--- NOTE | 2018-09-02 12:48 | Progress Note (SOAP) ---
Subjective Subjective/Events-last exam Patient doing well this AM. States that family have build him a ramp into his home. He is ready to get home Review of Systems Date Seen by Provider: Sep 02, 2018 Time Seen by Provider: 12:00 General: No Chills; Fatigue Pulmonary: Dyspnea, Cough Cardiovascular: No: Chest Pain, Palpitations Gastrointestinal: No: Nausea, Vomiting Neurological: Weakness, Incoordination Objective Exam Last Set of Vital Signs Vital Signs Date Time Temp Pulse Resp B/P (MAP) Pulse Ox O2 Delivery O2 Flow Rate FiO2 09/02/18 12:08 97.4 62 16 137/74 (95) 96 Room Air 08/31/18 08:44 5.00 Capillary Refill : Less Than 3 Seconds I&O Intake and Output 09/02/18 00:00 Intake Total 1290 ml Output Total 3300 ml Balance -2010 ml Intake Oral 1290 ml Output Urine Total 3300 ml Drainage Total 0 ml # Voids 2 General: Alert, Oriented X3, Cooperative, No Acute Distress HEENT: Mucous Memb Moist/Cucumber Lungs: Clear to Auscultation, Normal Air Movement Heart: Regular Rate, No Murmurs Abdomen: Normal Bowel Sounds, Soft, No Tenderness, No Masses Extremities: Other (R AKA, left transmetatarsal amputation, bandage C/D/I) Psych/Mental Status: Mental Status NL, Mood NL Results/Procedures Lab Laboratory Tests 09/01/18 15:38: Glucometer 226H 09/01/18 21:28: Glucometer 265H 09/02/18 04:49: Glucometer 186H 09/02/18 11:22: Glucometer 220H Microbiology 08/30/18 Gram Stain - Final, Resulted 08/30/18 Anaerobic Culture - Preliminary, Resulted No anaerobes isolated 08/30/18 Surgical Culture - Preliminary, Resulted See Comments 08/30/18 Fungal Culture 1, Resulted Pending Assessment/Plan Assessment/Plan (1) Osteomyelitis of left foot Status: Chronic Assessment & Plan: POD #3 s/p Left transmetatarsal amputation, managed by Dr Grace 09/02: Ready for D/c from medicine standpoint Qualifiers: Qualified Codes: M86.672 - Other chronic osteomyelitis, left ankle and foot (2) Peripheral vascular disease Status: Chronic Assessment & Plan: - Patient has AKA on Right and Left transmetatarsal amputation, holding plavix and ASA at this time due to continued oozing from wound (3) IDDM (insulin dependent diabetes mellitus) Status: Chronic Assessment & Plan: - A1c 8.3, started on home insulin with SSI (4) Hypertension Status: Chronic Assessment & Plan: - Continue home meds Qualifiers: Qualified Codes: I10 - Essential (primary) hypertension (5) Hyperlipidemia Status: Chronic Assessment & Plan: - Continue home meds Qualifiers: Qualified Codes: E78.2 - Mixed hyperlipidemia (6) BMI 40.0-44.9, adult Status: Chronic (7) DVT prophylaxis Status: Acute (8) Debility Status: Acute Assessment & Plan: - SW consult placed, patient may need SNF vs Rehab 09/01: Patient desires to return home, family building ramp into home, no stairs in home, Likely d/c tomorrow 09/02: D/c today with PT Clinical Quality Measures DVT/VTE Risk/Contraindication: Risk Factor Score Per Nursin RFS Level Per Nursing on Admit: 3=High KELSEA BLAIR MD Sep 02, 2018 12:48
--- NOTE | 2018-09-02 12:54 | Discharge Summary ---
Diagnosis/Chief Complaint Date of Admission Aug 30, 2018 at 18:15 Date of Discharge Discharge Diagnosis Ostoemyelitis left foot. S/P Transmetatarsal amputation left foot Reason Hospital Visit Surgical intervention for infection, medical management of DM, Physical Therapy for Fall Risk Discharge Summary Procedures: Transmetatarsal Amputation left foot, Tibialis Anterior Tendon Transfer, Achilles Tendon lengthening, all left Discharge Physical Examination Allergies: Coded Allergies: pregabalin (Unverified Allergy, Severe, FEVER, 04/26/15) Vitals & I&Os Vital Signs Date Time Temp Pulse Resp B/P (MAP) Pulse Ox O2 Delivery O2 Flow Rate FiO2 09/02/18 12:08 97.4 62 16 137/74 (95) 96 Room Air 08/31/18 08:44 5.00 General Appearance: Alert, Oriented X3, No Acute Distress Respiratory: Normal Air Movement, Other (diminished breath sounds at the bases) Abdominal: Normal Bowel Sounds, Soft, No Tenderness, No Hepatosplenomegaly, No Masses Extremities: Other (R AKA, Left bandage on foot) Neuro: Cranial Nerves 3-12 NL Hospital Course Progressing well. Tolerated surgical intervention well. Working with PT for activities of daily living and staying non-weight bearing left. Labs Laboratory Tests 09/01/18 15:38: Glucometer 226H 09/01/18 21:28: Glucometer 265H 09/02/18 04:49: Glucometer 186H 09/02/18 11:22: Glucometer 220H Microbiology 08/30/18 Gram Stain - Final, Resulted 08/30/18 Anaerobic Culture - Preliminary, Resulted No anaerobes isolated 08/30/18 Surgical Culture - Preliminary, Resulted See Comments 08/30/18 Fungal Culture 1, Resulted Pending Pending Labs Laboratory Tests 09/02/18 04:49: Glucometer 186 09/02/18 11:22: Glucometer 220 Discharge Condition at discharge Progressing well. Instructions to patient/family Please see electronic discharge instructions given to patient. Discharge Medications Reviewed and agree with Discharge Medication list on patient's Discharge Instruction sheet Clinical Quality Measures DVT/VTE Risk/Contraindication: Risk Factor Score Per Nursin RFS Level Per Nursing on Admit: 3=High LAURA GERBER DPJaleesa Sep 02, 2018 12:53
[2018-09-02 16:38] VITALS: BP 137/74
== END 2018-09-02 16:35 | disposition home or self-care (01) | DRG 617 ==
LOC: SDC 11:10 → 4TH 18:10 → SDC 18:15
PROVIDERS: ADMIT Podiatrist Foot & Ankle Surgery; ATTEND Podiatrist Foot & Ankle Surgery
PROC: 0Y6N0Z6 Detachment at Left Foot, Complete 3rd Ray, Open Approach (ICD-10-PCS; 2018-08-30)
PROC: 0Y6N0Z7 Detachment at Left Foot, Complete 4th Ray, Open Approach (ICD-10-PCS; 2018-08-30)
PROC: 0Y6N0Z8 Detachment at Left Foot, Complete 5th Ray, Open Approach (ICD-10-PCS; 2018-08-30)
PROC: 0LXW0ZZ Transfer Left Foot Tendon, Open Approach (ICD-10-PCS; 2018-08-30)
PROC: 0L8P3ZZ Division of Left Lower Leg Tendon, Percutaneous Approach (ICD-10-PCS; 2018-08-30)
PROC: 0Y6N0Z5 Detachment at Left Foot, Complete 2nd Ray, Open Approach (ICD-10-PCS; principal; 2018-08-30 13:30)
DX: E11.69 Type 2 diabetes mellitus with other specified complication (principal); M86.672 Other chronic osteomyelitis, left ankle and foot; E11.621 Type 2 diabetes mellitus with foot ulcer; L97.526 Non-pressure chronic ulcer of other part of left foot with bone involvement without evidence of necrosis; E11.51 Type 2 diabetes mellitus with diabetic peripheral angiopathy without gangrene; I10 Essential (primary) hypertension; I25.10 Atherosclerotic heart disease of native coronary artery without angina pectoris; E78.5 Hyperlipidemia, unspecified; J43.9 Emphysema, unspecified; G47.33 Obstructive sleep apnea (adult) (pediatric); K21.9 Gastro-esophageal reflux disease without esophagitis; K44.9 Diaphragmatic hernia without obstruction or gangrene; F17.210 Nicotine dependence, cigarettes, uncomplicated; E11.40 Type 2 diabetes mellitus with diabetic neuropathy, unspecified; M19.91 Primary osteoarthritis, unspecified site; E66.01 Morbid (severe) obesity due to excess calories; I34.0 Nonrheumatic mitral (valve) insufficiency; Z95.828 Presence of other vascular implants and grafts; Z86.14 Personal history of Methicillin resistant Staphylococcus aureus infection; Z89.412 Acquired absence of left great toe; Z89.422 Acquired absence of other left toe(s); Z89.511 Acquired absence of right leg below knee; Z86.718 Personal history of other venous thrombosis and embolism
CPT/HCPCS: 36415; 73620; 80053; 82962; 83036; 85025; 87070; 87075; 87077; 87101; 87186; 87205; 88305; 88307; 88311

== ENCOUNTER → 2018-09-25 | Outpatient (CLI) | payer MEDICARE ==
[~2018-09-25] MED LIST changes: +ACHD5005 PO; +CEPH500C PO
== END ==
LOC: WOUNDCARE 14:18
PROVIDERS: ATTEND Surgery
DX: E11.621 Type 2 diabetes mellitus with foot ulcer (principal); I70.245 Atherosclerosis of native arteries of left leg with ulceration of other part of foot; L97.523 Non-pressure chronic ulcer of other part of left foot with necrosis of muscle; L97.522 Non-pressure chronic ulcer of other part of left foot with fat layer exposed; E11.42 Type 2 diabetes mellitus with diabetic polyneuropathy
CPT/HCPCS: 11043; 11046; 87070; 87075; 87077; 87186; 87205

== ENCOUNTER → 2018-10-01 | Outpatient (CLI) | payer MEDICARE | LOC: WOUNDCARE 09:20 | PROVIDERS: ATTEND Nurse Practitioner | DX: L97.523 Non-pressure chronic ulcer of other part of left foot with necrosis of muscle (principal); E11.621 Type 2 diabetes mellitus with foot ulcer; E11.42 Type 2 diabetes mellitus with diabetic polyneuropathy; L97.522 Non-pressure chronic ulcer of other part of left foot with fat layer exposed; I70.245 Atherosclerosis of native arteries of left leg with ulceration of other part of foot | CPT/HCPCS: 11042; 11045 ==

== ENCOUNTER → 2018-10-08 | Outpatient (CLI) | payer MEDICARE | LOC: WOUNDCARE 10:18 | PROVIDERS: ATTEND Nurse Practitioner | DX: E11.621 Type 2 diabetes mellitus with foot ulcer (principal); L97.523 Non-pressure chronic ulcer of other part of left foot with necrosis of muscle; E11.42 Type 2 diabetes mellitus with diabetic polyneuropathy; L97.522 Non-pressure chronic ulcer of other part of left foot with fat layer exposed; I70.245 Atherosclerosis of native arteries of left leg with ulceration of other part of foot | CPT/HCPCS: 11042; 15275 ==

== ENCOUNTER → 2018-10-15 | Outpatient (CLI) | payer MEDICARE | LOC: WOUNDCARE 10:12 | PROVIDERS: ATTEND Nurse Practitioner | DX: E11.621 Type 2 diabetes mellitus with foot ulcer (principal); L97.523 Non-pressure chronic ulcer of other part of left foot with necrosis of muscle; E11.42 Type 2 diabetes mellitus with diabetic polyneuropathy; L97.522 Non-pressure chronic ulcer of other part of left foot with fat layer exposed; I70.245 Atherosclerosis of native arteries of left leg with ulceration of other part of foot | CPT/HCPCS: 11042; 11045; 97605 ==

== ENCOUNTER → 2018-10-22 | Outpatient (CLI) | payer MEDICARE | LOC: WOUNDCARE 08:06 | PROVIDERS: ATTEND Nurse Practitioner | DX: E11.621 Type 2 diabetes mellitus with foot ulcer (principal); L97.522 Non-pressure chronic ulcer of other part of left foot with fat layer exposed; L97.523 Non-pressure chronic ulcer of other part of left foot with necrosis of muscle; E11.42 Type 2 diabetes mellitus with diabetic polyneuropathy; I70.245 Atherosclerosis of native arteries of left leg with ulceration of other part of foot | CPT/HCPCS: 11042; 87070; 87075; 87077; 87205; 97605 ==

== ENCOUNTER 2018-10-25 09:47 | Outpatient (RCR) | payer MEDICARE ==
--- NOTE | 2018-10-18 10:14 | NUR ---
Patient here for scheduled wound vac changed to left foot. Dressing removed and wound bed appears well granulated with only slight maceration to wound edges. Surrounding periwound without redness or other complications. Wound rinsed with normal saline. Lateral foot ulcer measures 5x3.5x0.4cm. Transmetatarsal ulcer measures 0.4x1.3x0.2cm. Moreno foam applied to both ulcers, bridged together with tract pad to dorsal aspect of foot. Patient tolerated procedure well and left day surg via motorized wheelchair and will take public transportation home.
[~2018-10-25 09:47] MED LIST changes: -GABA600T2 PO; +GBPN600T PO; +LOSA50TA63 PO; -LOSA50TA7 PO
--- NOTE | 2018-10-25 10:28 | NUR ---
Patient here for scheduled wound vac change. Dressing removed. Large pink granulation tissue to wound bed. Periwound with some maceration and callous but otherwise without complication and unchanged from previous assessment. Wound measures 4.3x3.0x0.5cm. Wound vac applied in standard fashion with black foam to wound and bridged to dorsal aspect of foot. Patient tolerated procedure well.
== END 2019-01-16 | disposition home or self-care (01) ==
LOC: SDC 09:47
PROVIDERS: ATTEND Nurse Practitioner
DX: E11.621 Type 2 diabetes mellitus with foot ulcer (principal); I70.245 Atherosclerosis of native arteries of left leg with ulceration of other part of foot; L97.523 Non-pressure chronic ulcer of other part of left foot with necrosis of muscle; L97.522 Non-pressure chronic ulcer of other part of left foot with fat layer exposed; E11.42 Type 2 diabetes mellitus with diabetic polyneuropathy

== ENCOUNTER → 2018-10-29 | Outpatient (CLI) | payer MEDICARE ==
[~2018-10-29] MED LIST changes: +GABA600T2 PO; -GBPN600T PO; -LOSA50TA63 PO; +LOSA50TA7 PO
== END ==
LOC: WOUNDCARE 10:22
PROVIDERS: ATTEND Nurse Practitioner
DX: E11.621 Type 2 diabetes mellitus with foot ulcer (principal); L97.522 Non-pressure chronic ulcer of other part of left foot with fat layer exposed; E11.42 Type 2 diabetes mellitus with diabetic polyneuropathy; L97.523 Non-pressure chronic ulcer of other part of left foot with necrosis of muscle; I70.245 Atherosclerosis of native arteries of left leg with ulceration of other part of foot
CPT/HCPCS: 11042; 97605

== ENCOUNTER → 2018-11-05 | Outpatient (CLI) | payer MEDICARE | LOC: WOUNDCARE 09:36 | PROVIDERS: ATTEND Nurse Practitioner | DX: E11.621 Type 2 diabetes mellitus with foot ulcer (principal); L97.523 Non-pressure chronic ulcer of other part of left foot with necrosis of muscle; E11.42 Type 2 diabetes mellitus with diabetic polyneuropathy; L97.522 Non-pressure chronic ulcer of other part of left foot with fat layer exposed; I70.245 Atherosclerosis of native arteries of left leg with ulceration of other part of foot | CPT/HCPCS: 11042; 97605 ==

== ENCOUNTER → 2018-11-08 | Outpatient (CLI) | payer MEDICARE | LOC: WOUNDCARE 08:01 | PROVIDERS: ATTEND Nurse Practitioner | DX: E11.621 Type 2 diabetes mellitus with foot ulcer (principal); L97.523 Non-pressure chronic ulcer of other part of left foot with necrosis of muscle; E11.42 Type 2 diabetes mellitus with diabetic polyneuropathy; L97.522 Non-pressure chronic ulcer of other part of left foot with fat layer exposed; I70.245 Atherosclerosis of native arteries of left leg with ulceration of other part of foot | CPT/HCPCS: 99212 ==

== ENCOUNTER 2018-11-11 07:04 | Outpatient (RCR) | payer MEDICARE ==
[2018-10-29 11:20] VITALS: BP 154/96
--- NOTE | 2018-10-29 13:06 | Diagnostic Imaging Report ---
EXAMINATION: Portable erect AP chest at 12:39 p.m. INDICATION: PICC line insertion. FINDINGS: Reportedly, the patient has had a recent insertion of PICC line on the left. The PICC line is difficult to visualize. Additional oblique views of the chest were obtained and these suggest that the PICC line tip overlies the distal superior vena cava. There is no sign of a pneumothorax on the left. The heart size is within normal limits and stable when compared to 03/05/2018. The lungs are clear. There is no evidence for failure, pneumonia, or for a pleural effusion. The mediastinum is not widened. The osseous structures are intact. IMPRESSION: 1. There has been insertion of a left-sided PICC line. While the PICC line is difficult to visualize the tip does seem to be overlying the distal superior vena cava. There is no pneumothorax 2. There is no acute cardiopulmonary abnormality noted otherwise. I Dictated by: Dictated on workstation # [id number]
[2018-10-29 13:32] LABS: BUN/CREATININE RATIO 17; CALCIUM 9.3 MG/DL (8.5-10.1); CARBON DIOXIDE 28 MMOL/L (21-32); CHLORIDE 96 MMOL/L (98-107); CREATININE SERUM 0.95 MG/DL (0.60-1.30); GFR ESTIMATED > 60; GLUCOSE 397 MG/DL (70-105); POTASSIUM 4.8 MMOL/L (3.6-5.0); SODIUM 132 MMOL/L (135-145)
[2018-10-29] MEDS: TOBRAMYCIN IV SCH (13:40)
[2018-10-29] MEDS: NS IV SCH (13:40)
[2018-10-29 23:27] VITALS: BP 154/96
[2018-10-30] MEDS: NS IV SCH (10:15)
[2018-10-30] MEDS: TOBRAMYCIN IV SCH (10:15)
[2018-10-30 10:45] VITALS: BP 154/80
[2018-10-31] MEDS: TOBRAMYCIN IV SCH (09:58)
[2018-10-31] MEDS: NS IV SCH (09:58)
[2018-10-31 11:00] VITALS: BP 162/75
[2018-11-01] MEDS: NS IV SCH (10:18)
[2018-11-01] MEDS: TOBRAMYCIN IV SCH (10:18)
[2018-11-01 10:25] VITALS: BP 157/87
[2018-11-02] MEDS: TOBRAMYCIN IV SCH (09:59)
[2018-11-02] MEDS: NS IV SCH (09:59)
[2018-11-02 10:01] VITALS: BP 140/70
[2018-11-03 08:22] VITALS: BP 134/83
[2018-11-03] MEDS: NS IV SCH (08:22)
[2018-11-03] MEDS: TOBRAMYCIN IV SCH (08:22)
[2018-11-04] MEDS: TOBRAMYCIN IV SCH (10:15)
[2018-11-04] MEDS: NS IV SCH (10:15)
[2018-11-04 11:10] VITALS: BP 131/97
[2018-11-05] MEDS: NS IV SCH (08:20)
[2018-11-05] MEDS: TOBRAMYCIN IV SCH (08:20)
[2018-11-05 09:25] VITALS: BP 150/81
[2018-11-06] MEDS: NS IV SCH (07:26)
[2018-11-06] MEDS: TOBRAMYCIN IV SCH (07:26)
[2018-11-06 08:31] VITALS: BP 155/75
[2018-11-07 08:47] VITALS: BP 116/80
[2018-11-07] MEDS: NS IV SCH (09:04)
[2018-11-07] MEDS: TOBRAMYCIN IV SCH (09:04)
[2018-11-07 16:57] VITALS: BP 164/89
[2018-11-08] MEDS: TOBRAMYCIN IV SCH (08:51)
[2018-11-08] MEDS: NS IV SCH (08:51)
[2018-11-08 09:01] VITALS: BP 116/76
[2018-11-09] MEDS: TOBRAMYCIN IV SCH (07:37)
[2018-11-09] MEDS: NS IV SCH (07:37)
[2018-11-09 07:58] VITALS: BP 120/61
[2018-11-10] MEDS: NS IV SCH (07:19)
[2018-11-10] MEDS: TOBRAMYCIN IV SCH (07:19)
[2018-11-10 07:27] VITALS: BP 144/71
[~2018-11-11] VITALS: Ht 193 cm; Wt 168.3 kg
[~2018-11-11 07:04] MED LIST changes: +TROUGH ORDER-PHARMACY XX NR; +TROUGH ORDER-PHARMACY XX ONE
[2018-11-11 07:16] VITALS: BP 145/76
[2018-11-11] MEDS: TOBRAMYCIN IV SCH (07:25)
[2018-11-11] MEDS: NS IV SCH (07:25)
== END 2018-11-14 09:30 | disposition home or self-care (01) ==
LOC: SDC 07:04
PROVIDERS: ATTEND Nurse Practitioner
DX: E11.621 Type 2 diabetes mellitus with foot ulcer (principal); I70.245 Atherosclerosis of native arteries of left leg with ulceration of other part of foot; L97.523 Non-pressure chronic ulcer of other part of left foot with necrosis of muscle; L97.522 Non-pressure chronic ulcer of other part of left foot with fat layer exposed; E11.42 Type 2 diabetes mellitus with diabetic polyneuropathy
CPT/HCPCS: 36415; 36569; 36591; 71045; 76937; 80048; 80200; 96365; 99211

== ENCOUNTER → 2018-11-14 | Outpatient (CLI) | payer MEDICARE ==
[~2018-11-14] MED LIST changes: -TROUGH ORDER-PHARMACY XX NR; -TROUGH ORDER-PHARMACY XX ONE
== END ==
LOC: WOUNDCARE 10:03
PROVIDERS: ATTEND Nurse Practitioner
DX: L97.523 Non-pressure chronic ulcer of other part of left foot with necrosis of muscle (principal); E11.621 Type 2 diabetes mellitus with foot ulcer; E11.42 Type 2 diabetes mellitus with diabetic polyneuropathy; L97.522 Non-pressure chronic ulcer of other part of left foot with fat layer exposed; I70.245 Atherosclerosis of native arteries of left leg with ulceration of other part of foot
CPT/HCPCS: 11042

== ENCOUNTER → 2018-11-28 | Outpatient (CLI) | payer MEDICARE ==
[~2018-11-28] VITALS: Ht 193 cm; Wt 168.3 kg
[2018-11-28 10:13] VITALS: BP 138/80
== END ==
LOC: WOUNDCARE 08:12
PROVIDERS: ATTEND Nurse Practitioner
DX: E11.621 Type 2 diabetes mellitus with foot ulcer (principal); E11.42 Type 2 diabetes mellitus with diabetic polyneuropathy; L97.523 Non-pressure chronic ulcer of other part of left foot with necrosis of muscle; L97.522 Non-pressure chronic ulcer of other part of left foot with fat layer exposed; I70.245 Atherosclerosis of native arteries of left leg with ulceration of other part of foot
CPT/HCPCS: 15275

== ENCOUNTER → 2018-12-05 | Outpatient (CLI) | payer MEDICARE | LOC: WOUNDCARE 08:01 | PROVIDERS: ATTEND Nurse Practitioner | DX: E11.621 Type 2 diabetes mellitus with foot ulcer (principal); E11.42 Type 2 diabetes mellitus with diabetic polyneuropathy; L97.523 Non-pressure chronic ulcer of other part of left foot with necrosis of muscle; L97.522 Non-pressure chronic ulcer of other part of left foot with fat layer exposed; I70.245 Atherosclerosis of native arteries of left leg with ulceration of other part of foot | CPT/HCPCS: 15275 ==

== ENCOUNTER → 2018-12-12 | Outpatient (CLI) | payer MEDICARE ==
[~2018-12-12] MED LIST changes: -GABA600T2 PO; +GBPN600T PO; +LOSA50TA63 PO; -LOSA50TA7 PO
== END ==
LOC: WOUNDCARE 08:02
PROVIDERS: ATTEND Nurse Practitioner
DX: E11.621 Type 2 diabetes mellitus with foot ulcer (principal); E11.42 Type 2 diabetes mellitus with diabetic polyneuropathy; L97.522 Non-pressure chronic ulcer of other part of left foot with fat layer exposed; I70.245 Atherosclerosis of native arteries of left leg with ulceration of other part of foot
CPT/HCPCS: 15275

== ENCOUNTER → 2018-12-19 | Outpatient (CLI) | payer MEDICARE | LOC: WOUNDCARE 08:01 | PROVIDERS: ATTEND Nurse Practitioner | DX: E11.621 Type 2 diabetes mellitus with foot ulcer (principal); E11.42 Type 2 diabetes mellitus with diabetic polyneuropathy; L97.522 Non-pressure chronic ulcer of other part of left foot with fat layer exposed; I70.245 Atherosclerosis of native arteries of left leg with ulceration of other part of foot | CPT/HCPCS: 99212 ==

== ENCOUNTER → 2019-04-08 | Outpatient (CLI) | payer MEDICARE | LOC: WOUNDCARE 09:04 | PROVIDERS: ATTEND Nurse Practitioner | DX: E11.628 Type 2 diabetes mellitus with other skin complications (principal); I70.245 Atherosclerosis of native arteries of left leg with ulceration of other part of foot | CPT/HCPCS: 99213 ==

== ENCOUNTER → 2019-04-24 | Outpatient (CLI) | payer MEDICARE | LOC: WOUNDCARE 08:21 | PROVIDERS: ATTEND Nurse Practitioner | DX: E11.628 Type 2 diabetes mellitus with other skin complications (principal); I70.245 Atherosclerosis of native arteries of left leg with ulceration of other part of foot | CPT/HCPCS: 99212 ==

== ENCOUNTER → 2019-05-01 | Outpatient (CLI) | payer MEDICARE | LOC: WOUNDCARE 08:02 | PROVIDERS: ATTEND Nurse Practitioner | DX: E11.628 Type 2 diabetes mellitus with other skin complications (principal); I70.245 Atherosclerosis of native arteries of left leg with ulceration of other part of foot | CPT/HCPCS: 11042; 87070; 87075; 87205 ==

== ENCOUNTER → 2019-05-15 | Outpatient (CLI) | payer MEDICARE | LOC: WOUNDCARE 08:00 | PROVIDERS: ATTEND Nurse Practitioner | DX: E11.622 Type 2 diabetes mellitus with other skin ulcer (principal); L97.212 Non-pressure chronic ulcer of right calf with fat layer exposed; E66.01 Morbid (severe) obesity due to excess calories; I87.331 Chronic venous hypertension (idiopathic) with ulcer and inflammation of right lower extremity | CPT/HCPCS: 99213 ==

== ENCOUNTER → 2019-05-20 | Outpatient (CLI) | payer MEDICARE | LOC: WOUNDCARE 08:59 | PROVIDERS: ATTEND Nurse Practitioner | DX: I70.245 Atherosclerosis of native arteries of left leg with ulceration of other part of foot (principal); L97.522 Non-pressure chronic ulcer of other part of left foot with fat layer exposed; E11.622 Type 2 diabetes mellitus with other skin ulcer | CPT/HCPCS: 99212 ==

== ENCOUNTER → 2019-05-29 | Outpatient (CLI) | payer MEDICARE ==
[~2019-05-29] MED LIST changes: +BUDE10.2 IH; +DULA0.75 SQ; +DULA1.5P2 SQ; +GLIP10TA13 PO; +IBUP-2055 PO; +INSU100I23 SQ; +INSU200I4 SQ; +PANT40TA2 PO; +RANI-515 PO
== END ==
LOC: WOUNDCARE 08:00
PROVIDERS: ATTEND Nurse Practitioner
DX: E11.52 Type 2 diabetes mellitus with diabetic peripheral angiopathy with gangrene (principal); E11.622 Type 2 diabetes mellitus with other skin ulcer; L97.522 Non-pressure chronic ulcer of other part of left foot with fat layer exposed; I70.262 Atherosclerosis of native arteries of extremities with gangrene, left leg
CPT/HCPCS: 99212

== ENCOUNTER 2019-06-02 07:53 | Outpatient (CLI) | payer MEDICARE ==
[~2019-06-02] VITALS: Ht 193 cm; Wt 182.8 kg
[~2019-06-02 07:53] MED LIST changes: -BUDE10.2 IH; -DULA0.75 SQ; -DULA1.5P2 SQ; -GLIP10TA13 PO; -IBUP-2055 PO; -INSU100I23 SQ; -INSU200I4 SQ; -PANT40TA2 PO; -RANI-515 PO
[2019-06-02] MEDS ORDERED: RANI-515 PO (08:27)
[2019-06-02] MEDS ORDERED: BUDE10.2 IH (08:27)
[2019-06-02] MEDS ORDERED: INSU200I4 SQ (08:27)
[2019-06-02] MEDS ORDERED: DULA1.5P2 SQ (08:27)
[2019-06-02] MEDS ORDERED: INSU100I14 SQ (08:27)
[2019-06-02 08:30] VITALS: BP 142/68
[2019-06-02 09:16] LABS: BASOPHILS % (AUTO) 0 % (0-10); EOSINOPHILS # (AUTO) 0.2 10^3/uL (0.0-0.3); EOSINOPHILS % (AUTO) 2 % (0-10); HEMATOCRIT 42 % (40-54); HEMOGLOBIN 13.6 G/DL (13.3-17.7); LYMPHOCYTES # (AUTO) 1.8 X 10^3 (1.0-4.0); LYMPHOCYTES % (AUTO) 16 % (12-44); MEAN CORPUSCULAR HEMOGLOBIN 28 PG (25-34); MEAN CORPUSCULAR HGB CONC 32 G/DL (32-36); MEAN CORPUSCULAR VOLUME 86 FL (80-99); MEAN PLATELET VOLUME 9.6 FL (7.4-10.4); MONOCYTES # (AUTO) 0.9 X 10^3 (0.0-1.0); MONOCYTES % (AUTO) 8 % (0-12); NEUTROPHILS # (AUTO) 8.7 X 10^3 (1.8-7.8); NEUTROPHILS % (AUTO) 75 % (42-75); PLATELET COUNT 160 10^3/uL (130-400); WHITE BLOOD COUNT 11.7 10^3/uL (4.3-11.0)
[2019-06-02] MEDS ORDERED: PANT40TA2 PO (15:25)
[2019-06-02] MEDS ORDERED: INSU100I23 SQ (15:25)
[2019-06-02] MEDS ORDERED: DULA0.75 SQ (15:25)
[2019-06-02] MEDS ORDERED: GLIP10TA13 PO (15:25)
[2019-06-02] MEDS ORDERED: IBUP-2055 PO (15:25)
[2019-06-16] MEDS ORDERED: CYCL10TA9 PO (16:01)
[2019-06-16] MEDS ORDERED: ACHD5005 PO (16:01)
[2019-06-16] MEDS ORDERED: DICL100G18 TOP (16:01)
[2019-06-17] MEDS ORDERED: CEPH250C PO (20:18)
== END 2019-06-02 09:15 | disposition home or self-care (01) ==
LOC: PREOP 07:53
PROVIDERS: ATTEND Surgery
DX: Z01.812 Encounter for preprocedural laboratory examination (principal); E11.621 Type 2 diabetes mellitus with foot ulcer; L97.529 Non-pressure chronic ulcer of other part of left foot with unspecified severity
CPT/HCPCS: 36415; 85025; 87081

== ENCOUNTER 2019-06-05 07:34 | Inpatient (IN) | payer MEDICARE ==
--- NOTE | 2019-06-02 15:28 | NUR ---
CALLED [facility] FOR A LIST OF RECENTLY FILLED MEDICATIONS THEN CALLED THE PATIENT TO VERIFY. HE TAKES ASPIRIN 81MG DAILY OTC HOWEVER STATES HE HAS BEEN OUT OF IT FOR ABOUT A WEEK BUT PLANS TO GET MORE. HE ALSO TAKES 4 IBU OTC PRN. [facility] FILLED: 04-24-19 TRULICITY 0.75MG WEEKLY 04-24-19 PROTONIX 40MG DAILY #90 (TAKES AT HS) 04-27-19 HUMALOG 50 UNITS TID (STATES HE NOW TAKES 60 UNITS TID) 05-13-19 TRESIBA 96 UNITS HS 05-16-19 GABAPENTIN 600MG TID 05-24-19 SYMBICORT 160 2 PUFFS BID 05-29-19 PROAIR 2 PUFFS Q4H PRN 11-16-19 LIPITOR 40MG #90 (STATES HE STOPPED FOR AWHILE BUT HAS NOT RESUMED) ADDITIONALLY WHEN I WAS TALKING TO HIM HE STATES HE TAKES GLIPIZIDE 10MG DAILY #90 FILLED 04-15-19 - HE READ THIS INFO TO ME FROM HIS BOTTLE, I ADDED IT TO THE MED REC. HE ALSO FILLED CHANTIX 1MG BID 05-14-19 AT [facility]
[~2019-06-05] VITALS: Ht 193 cm; Wt 182.8 kg
[2019-06-05] VITALS (14 sets, daily range): BP systolic 95–174; BP diastolic 63–134
[~2019-06-05 07:34] MED LIST changes: +BUDE10.2 IH; +DULA0.75 SQ; +DULA1.5P2 SQ; +GLIP10TA13 PO; +IBUP-2055 PO; +INSU100I23 SQ; +INSU200I4 SQ; +PANT40TA2 PO; +RANI-515 PO
[2019-06-05] MEDS: LACTATED RINGERS 1,000 ML IV PRN ×2 (08:40→10:40)
[2019-06-05] MEDS ORDERED: ceFAZolin INJECTION 1,000 MG in WATER (STERILE) FOR INJECTION 10 ML IV ONE (09:00)
[2019-06-05] MEDS ORDERED: fentaNYL INJECTION 100 MCG/2 ML AMP ONE ×2 (09:19→10:29)
--- NOTE | 2019-06-05 09:19 | Progress Note-Pre Operative ---
Pre-Operative Progress Note H&P Reviewed The H&P was reviewed, patient examined and no changes noted. Date Seen by Provider: Jun 05, 2019 Time Seen by Provider: :18 Date H&P Reviewed: Jun 05, 2019 Time H&P Reviewed: 09:18 Pre-Operative Diagnosis: DIABETIC FOOT ULCER LEFT ARGELIA LECHUGA DO Jun 05, 2019 09:19
[2019-06-05] MEDS ORDERED: MIDAZOLAM 2 MG/2 ML (VERSED) VIAL ONE (09:20)
[2019-06-05] MEDS ORDERED: LIDOCAINE PF 2% 5 ML (XYLOCAINE) VIAL ONE ×2 (09:21→12:34)
[2019-06-05] MEDS ORDERED: SEVOFLURANE (ULTANE) 15 ML INHAL SOLN ONE ×8 (09:21→11:38)
[2019-06-05] MEDS ORDERED: proPOfol 200 MG/20 ML (DIPRIVAN) VIAL IV ONE ×2 (09:21→11:01)
[2019-06-05] MEDS ORDERED: ONDANSETRON 4 MG/2 ML (SDV) Z0FRAN ONE (09:21)
[2019-06-05] MEDS ORDERED: ceFAZolin INJECTION 0 MG ONE (10:09)
[2019-06-05] MEDS ORDERED: PROMETHAZINE INJ 25 MG/ML (PHENERGAN) AMP IVP ONE (11:00)
[2019-06-05] MEDS ORDERED: morphine INJ 10 MG/ML 1ML (SYR OR VIAL) IVP ONE (11:00)
[2019-06-05] MEDS ORDERED: fentaNYL INJECTION 100 MCG/2 ML AMP IVP ONE (11:00)
[2019-06-05] MEDS ORDERED: ONDANSETRON 4 MG/2 ML (SDV) Z0FRAN IVP PRN ×2 (11:00→12:30)
[2019-06-05] MEDS ORDERED: HYDROmorphone 2 MG/ML VIAL (DILAUDID) IV ONE (11:00)
[2019-06-05] MEDS ORDERED: SUCCINYLCHOLINE INJ 100 MG/5 ML SYR ONE (11:09)
[2019-06-05] MEDS ORDERED: ROCURONIUM 10 MG/ML 5 ML SYRINGE IV ONE (11:09)
[2019-06-05] MEDS ORDERED: GLYCOPYRROLATE 0.2 MG/ML (ROBINUL) 2 ML VIAL ONE (11:28)
[2019-06-05] MEDS ORDERED: NEOSTIGMINE 3 MG/3 ML VIAL ONE (11:28)
[2019-06-05] MEDS ORDERED: ceFAZolin 2 GM/50 ML NS 50 ML IV SCH (12:15)
--- NOTE | 2019-06-05 12:18 | Progress Note-Post Operative ---
Post-Operative Progess Note Surgeon (s)/Boot And Shoe Repairman (s) Surgeon ARGELIA LECHUGA DO Boot And Shoe Repairman: Dr. Ballesteros Pre-Operative Diagnosis DIABETIC FOOT ULCER LEFT Post-Operative Diagnosis same Procedure & Operative Findings Date of Procedure 06/05/19 Procedure Performed/Findings left bka Anesthesia Type gen Estimated Blood Loss Estimated blood loss (mL): 200 mL Specimens/Packing Specimens Removed left lower ext ARGELIA LECHUGA DO Jun 05, 2019 12:18
[2019-06-05] MEDS ORDERED: ROPIVACAINE 5MG/ML 30ML VIAL ONE (12:31)
--- NOTE | 2019-06-05 13:31 | Anesthesia-Procedure Note ---
Procedures/Interventions Procedure Start/Stop/Diagnosis Date of Procedure: Jun 05, 2019 Start Time: 12:55 Referring Physician: Meir Brief History Post op Below the Knee amputation. Stop Time: 13:20 Postprocedural Diagnosis: Femoral and Popleteal Block for post op pain control per dr. request. Additional Procedures Procedures Patient in significant pain post operatively. Spoke with Dr. Worley and he request patient to have a regional anesthesia for post operative analgesia if possible. Spoke with patient, obtained verbal consent. US id of left femoral nerve. ChloraPrep to groin. 2cc 2% lidocaine for skin local. 3 1/8 inch Stimuplex echogenic needle placed in-plane to femoral nerve. Nerve stimulator used to assist in ID. Stim out at .36 ma. 30 cc of 0.25 ropivacaine injected without difficulty. Good spread noted. Patient to right lateral position US id of popliteal artery. US moved Cephalad to ID nerve bundles becoming one. 3 1/8 Stimuplex echogenic needle advanced in-place to just below nerve bundle 1cc local given to assure placement 10cc total 0.25% Ropivacaine injected. Needle moved to above nerve bundle and the procedure same as previous. Tolerated procedure well. Pt states pain is much better at this time. BRIGIDA OLIVER CRNA Jun 05, 2019 13:31
--- NOTE | 2019-06-05 13:35 | NUR ---
KAITLIN CHOE admitted to room 429-1, with an admitting diagnosis of LEFT BELOW THE KNEE AMPUTATION, on 06/05/19 from PACU via BED, accompanied by STAFF. KAITLIN CHOE introduced to surroundings, call light, bed controls, phone, TV, temperature control, lights, meal times, smoking policy, visitor policy, side rail policy, bathrooms and showers. Patient Rights given to patient in the handbook. KAITLIN CHOE verbalizes understanding that [facility] is not responsible for the loss or damage to any personal effects or valuables that are kept in the patients posession during their hospitalization. KAITLIN CHOE verbalizes understanding of Interdisciplinary Patient Education. Patient and/or family were informed about the Rapid Response Team and its purpose.
[2019-06-05] MEDS: HYDROcodone/APAP 5 MG/325 MG (LORTAB) TAB PO PRN ×2 (13:50→22:09)
[2019-06-05] MEDS: LACTATED RINGERS 1,000 ML IV SCH (13:50)
[2019-06-05] MEDS: CYCLOBENZAPRINE 10 MG (FLEXERIL) TAB PO PRN ×2 (16:11→22:07)
[2019-06-05] MEDS: ceFAZolin 2 GM/50 ML NS 50 ML IV SCH (17:12)
[2019-06-05] MEDS: morphine INJ 4 MG/ML 1 ML (VIAL/SYRINGE) IVP PRN ×3 (17:15→22:44)
[2019-06-05] MEDS: inSUlin ASPART (NovoLOG) 1 UNIT/0.01 ML (CHARGE PER UNIT) SC SCH (22:55)
[2019-06-06] VITALS (7 sets, daily range): BP systolic 107–129; BP diastolic 55–73
[2019-06-06] MEDS: ceFAZolin 2 GM/50 ML NS 50 ML IV SCH (00:08)
[2019-06-06] MEDS: LACTATED RINGERS 1,000 ML IV SCH ×4 (00:14→19:45)
[2019-06-06] MEDS: morphine INJ 4 MG/ML 1 ML (VIAL/SYRINGE) IVP PRN ×4 (00:49→08:07)
[2019-06-06] MEDS: HYDROcodone/APAP 5 MG/325 MG (LORTAB) TAB PO PRN ×5 (02:19→22:12)
--- NOTE | 2019-06-06 04:17 | OPERATIVE REPORT ---
DATE OF SERVICE: 06/05/2019 PREOPERATIVE DIAGNOSIS: Nonhealing diabetic left foot ulcer. POSTOPERATIVE DIAGNOSIS: Nonhealing diabetic left foot ulcer. PROCEDURE: Left below knee amputation. SURGEON: Argelia Worley DO STORE LEADER: Dr. Ballesteros, who assisted in retraction, dissection and closure. ANESTHESIA: General. ESTIMATED BLOOD LOSS: 200 mL COMPLICATIONS: None. INDICATIONS: The patient is a 54-year-old male, who has a nonhealing chronic left foot ulcer. He has undergone wound care and has already had multiple amputations to the left foot. The patient was discussed risks and benefits of procedure and wished to proceed with procedure. Consent was signed in the chart. DESCRIPTION OF PROCEDURE: The patient was taken to the operating suite. His left lower extremity was prepped and draped in sterile fashion. Timeout was performed. A fishmouth incision was made distal to the tibial plateau, skin and subcutaneous tissue was then encountered. The tibia was then dissected completely around and a bone saw was then used to transect the tibia. The anterior surface also had angle cut made for better pressure positioning. A garay rasp was used to follow the bone edges until smooth. The muscles were then continued to be divided until vascular bundles were encountered wherein these vascular bundles were encountered, they were dissected around and tied off and then transected. The fibula was then also dissected around proximal to where the tibia was cut and then transected as well with a bone saw. A tourniquet was used during the dissection, please see tourniquet times. Once the tibia and fibula were both cut the muscles were continued to be divided until completely divided and the lower extremity was removed. Once this was completely divided, the wound was then irrigated with copious amounts of irrigation. Hemostasis was achieved and the skin flaps were then brought together for closure. The vascular hemostasis was checked with the tourniquet off and irrigated multiple times and was left off the remainder of the case. The skin was then closed using Prolene sutures and uyen. The skin was then washed and dried and sterile bandage was applied. The patient tolerated procedure well without any complications. He was taken to recovery room in stable condition. Job ID: [id number] DocumentID: [id number] Dictated Date: 06/05/2019 17:24:06 Investment Accountant Date: 06/06/2019 04:16:57 Dictated By: ARGELIA WORLEY DO
[2019-06-06 05:33] LABS: BASOPHILS % (AUTO) 0 % (0-10); EOSINOPHILS # (AUTO) 0.3 10^3/uL (0.0-0.3); EOSINOPHILS % (AUTO) 2 % (0-10); HEMATOCRIT 41 % (40-54); LYMPHOCYTES # (AUTO) 1.9 X 10^3 (1.0-4.0); LYMPHOCYTES % (AUTO) 15 % (12-44); MEAN CORPUSCULAR HEMOGLOBIN 28 PG (25-34); MEAN CORPUSCULAR HGB CONC 32 G/DL (32-36); MEAN CORPUSCULAR VOLUME 87 FL (80-99); MEAN PLATELET VOLUME 9.9 FL (7.4-10.4); MONOCYTES # (AUTO) 1.5 X 10^3 (0.0-1.0); MONOCYTES % (AUTO) 12 % (0-12); NEUTROPHILS # (AUTO) 8.9 X 10^3 (1.8-7.8); NEUTROPHILS % (AUTO) 71 % (42-75); PLATELET COUNT 157 10^3/uL (130-400); RED CELL DISTRIBUTION WIDTH 13.2 % (10.0-14.5); WHITE BLOOD COUNT 12.5 10^3/uL (4.3-11.0)
[2019-06-06] MEDS: inSUlin ASPART (NovoLOG) 1 UNIT/0.01 ML (CHARGE PER UNIT) SC SCH ×6 (05:49→22:14)
[2019-06-06 05:55] LABS: ALANINE AMINOTRANSFERASE 14 U/L (0-55); ALBUMIN 3.2 GM/DL (3.2-4.5); ALKALINE PHOSPHATASE 98 U/L (40-136); BILIRUBIN,TOTAL 0.7 MG/DL (0.1-1.0); BUN/CREATININE RATIO 13; CALCIUM 9.2 MG/DL (8.5-10.1); CARBON DIOXIDE 29 MMOL/L (21-32); CHLORIDE 95 MMOL/L (98-107); CREATININE SERUM 0.77 MG/DL (0.60-1.30); GFR ESTIMATED > 60; GLUCOSE 132 MG/DL (70-105); POTASSIUM 4.3 MMOL/L (3.6-5.0); SODIUM 133 MMOL/L (135-145); TOTAL PROTEIN 6.9 GM/DL (6.4-8.2)
[2019-06-06] MEDS: CYCLOBENZAPRINE 10 MG (FLEXERIL) TAB PO PRN ×3 (06:39→22:12)
--- NOTE | 2019-06-06 06:58 | Anesthesia-General Post-Op ---
General Patient Condition Mental Status/LOC: Same as Preop Cardiovascular: Satisfactory Nausea/Vomiting: Absent Respiratory: Satisfactory Pain: Controlled Complications: Absent Post Op Complications Complications None Follow Up Care/Instructions Patient Instructions None needed. Anesthesia/Patient Condition Patient Condition Patient is doing well, no complaints, stable vital signs, no apparent adverse anesthesia problems. No complications reported per nursing. JON NDIAYE CRNA Jun 06, 2019 06:58
--- NOTE | 2019-06-06 10:56 | Consultation - Hospitalist ---
HPI History of Present Illness: HPI/Chief Complaint Chief complaint: Status post uncomplicated left below the knee amputation History present illness: This is a 54-year-old white male clinic [facility] with a past medical history of morbid obesity in addition to diabetes who presents following an uncomplicated left below the knee amputation. 5 other partial amputations had been performed that resulted in remaining nonhealing ulcerations so the decision was made to complete the amputation in order to facilitate healing and placement of a prosthesis. At this current time patient reports muscle spasms so I did order baclofen. He use to have home oxygen but he stopped wearing it. He appears to have high risk for sleep apnea. I have restarted all of his home medications and will initiate PT and OT orders and place inpatient rehabilitation eval. He quit smoking 5 weeks ago with the help of Chantix. Source: patient, family, RN/MD, old records Exam Limitations: no limitations Date Seen 06/06/19 Attending Physician Tian Worley DO [facility] [place] Referring Physician Date of Admission Jun 05, 2019 at 07:34 Home Medications & Allergies Home Medications Reviewed patient Home Medication Reconciliation performed by pharmacy medication reconciliations mammography technician and/or nursing. Patients Allergies have been reviewed. Allergies Allergies Coded Allergies pregabalin (Unverified Allergy, Severe, FEVER, 04/26/15) Past Bpbwlhq-Kkobhs-Skinlj Hx Past Med/Social Hx: Reviewed Nursing Past Med/Soc Hx, Reviewed and Corrections made Patient Social History Employed/Student: unemployed Alcohol Use: Rarely Uses Number of Drinks Today: 0 Recreational Drug Use: No (Reports has "not used in years".) Drug of Choice: E.D. REPORT: HX OF METH, LSD,ECSTASY,CRACK COCAINE, MUSHROOMS Type Used: Cigarettes 2nd Hand Smoke Exposure: Yes Physical Abuse Screen: No Sexual Abuse: No Recent Foreign Travel: No Contact w/other who traveled: No Recent Hopitalizations: No Recent Infectious Disease Expo: No Immunizations Up To Date Tetanus Booster (TDap): Unknown Pediatric: Yes Date of Pneumonia Vaccine: Sep 19, 2011 Date of Influenza Vaccine: May 28, 2018 Seasonal Allergies Seasonal Allergies: Yes Past Medical History Surgeries: Amputation, Orthopedic Respiratory: COPD, Sleep Apnea Currently Using CPAP: No (NOT ANY MORE-LOST IN HOUSE FIRE) Currently Using BIPAP: No Cardiac: Chronic Edema/Swelling, Coronary Artery Disease, High Cholesterol, Hypertension, Peripheral Vascular Neurological: Neuropathy Reproductive: No Gastrointestinal: Gastroesophageal Reflux, Hiatal Hernia Musculoskeletal: Amputee, Arthritis, Chronic Back Pain Endocrine: Diabetes, Insulin dep Loss of Vision: Denies Hearing Impairment: Denies History of Blood Disorders: No Adverse Reaction to Blood Quintero: No Family History Cardiovascular disease 19 FATHER ( heart attack) G8 BROTHER Diabetes mellitus 19 MOTHER ( complications diabetes) Psychosocial problem G8 BROTHER (in halfway) Heart Disease, Diabetes Review of Systems Constitutional: see HPI, weakness EENTM: no symptoms reported Respiratory: no symptoms reported Cardiovascular: no symptoms reported Gastrointestinal: no symptoms reported Genitourinary: no symptoms reported Musculoskeletal: joint pain, muscle cramps Skin: no symptoms reported Psychiatric/Neurological: No Symptoms Reported All Other Systems Reviewed Negative Unless Noted: Yes Physical Exam Physical Exam Vital Signs Vital Signs - First Documented 06/05/19 06/05/19 06/05/19 11:35 11:52 13:35 Temp 97.5 Pulse 93 Resp 16 B/P (MAP) 149/79 (102) Pulse Ox 93 O2 Delivery Nasal Cannula O2 Flow Rate 3 Capillary Refill : Less Than 3 Seconds Height, Weight, BMI Height: 6'4.00" Weight: 403lbs. 0.0oz. 182.549249mg; 49.1 BMI Method:Stated General Appearance: No Apparent Distress, WD/WN, Chronically ill, Obese Eyes: Bilateral Eye Normal Inspection, Bilateral Eye PERRL HEENT: PERRL/EOMI, Normal ENT Inspection, Pharynx Normal Neck: Full Range of Motion, Normal Inspection, Non Tender, Supple, Carotid Bruit Respiratory: Chest Non Tender, Lungs Clear, Normal Breath Sounds, No Accessory Muscle Use, No Respiratory Distress Cardiovascular: Regular Rate, Rhythm, No Edema, No Gallop, No JVD, No Murmur, Normal Peripheral Pulses Gastrointestinal: Normal Bowel Sounds, No Organomegaly, No Pulsatile Mass, Non Tender, Soft Back: Normal Inspection, No CVA Tenderness, No Vertebral Tenderness Extremity: Normal Capillary Refill, Normal Inspection, Normal Range of Motion (left BKA dressing intact), Non Tender, No Calf Tenderness, No Pedal Edema Neurologic/Psychiatric: Alert, Oriented x3, No Motor/Sensory Deficits, Normal Mood/Affect Skin: Normal Color, Warm/Dry Lymphatic: No Adenopathy Results Results/Procedures Labs Laboratory Tests 06/06/19 04:11 Patient resulted labs reviewed. Assessment/Plan Assessment and Plan Assess & Plan/Chief Complaint Assessment: Status post uncomplicated left below the knee amputation POD # 1 Hypertension Obesity Diabetes mellitus Acute muscle spasms ordered baclofen Presumed obstructive sleep apnea Recent smoking cessation with the help of Chantix Plan: Restarted all home meds PT and OT Rehabilitation consult Continue smoking cessation Pain control Baclofen for muscle spasms Diagnosis/Problems Diagnosis/Problems (1) Amputation of left lower extremity below knee (2) Debility Status: Acute (3) Peripheral vascular disease Status: Chronic (4) IDDM (insulin dependent diabetes mellitus) Status: Chronic (5) Chronic pain Status: Chronic Qualifiers: Chronic pain type: chronic pain syndrome Qualified Codes: G89.4 - Chronic pain syndrome (6) Hypertension Status: Chronic Qualifiers: Hypertension type: essential hypertension Qualified Codes: I10 - Essential (primary) hypertension (7) Hyperlipidemia Status: Chronic Qualifiers: Hyperlipidemia type: mixed hyperlipidemia Qualified Codes: E78.2 - Mixed hyperlipidemia (8) Marijuana use Status: Chronic Clinical Quality Measures DVT/VTE Risk/Contraindication: Risk Factor Score Per Nursin RFS Level Per Nursing on Admit: 4+=Very High SARAHY SANTANA DO Jun 06, 2019 10:56
[2019-06-06] MEDS ORDERED: IBUPROFEN 800 MG (MOTRIN) TAB PO PRN (12:45)
[2019-06-06] MEDS ORDERED: RT-ALBUTEROL SULF 2.5 MG/3 ML PRE-MIX VIAL INH PRN (12:45)
[2019-06-06] MEDS ORDERED: inSUlin ASPART (NovoLOG) 1 UNIT/0.01 ML (CHARGE PER UNIT) SC SCH (12:45)
[2019-06-06] MEDS: GABAPENTIN 600 MG (NEURONTIN) TAB PO SCH ×2 (13:34→19:42)
--- NOTE | 2019-06-06 14:22 | Occupational Therapy Eval ---
OT Evaluation-General/PLF Medical Diagnosis Admission Date Jun 05, 2019 at 07:34 Medical Diagnosis: left BKA Onset Date: Jun 05, 2019 Therapy Diagnosis Therapy Diagnosis: impaired self care skills Height/Weight Height (Feet): 6 Height (Inches): 4.00 Weight (Pounds): 403 Weight (Ounces): 0.0 Precautions Precautions/Isolations: Standard Precautions Safety Interventions: None Medical History Pertinent Medical History: Arthritis, CAD, COPD, DM, GERD, HTN, Neuropathy, PVD Additional Medical History chronic edema, right AKA, high cholesterol, hiatal hernia, chronic back pain. Current History Pt s/p left AKA Reviewed History: Yes Social History Home: Multilevel (washer/dryer is in basement) Current Living Status: Alone Entry Into Home: Ramp ADL-Prior Level of Function Therapy Code Descriptions/Definitions Functional [place] Measure: 0=Not Assessed/NA 4=Minimal Assistance 1=Total Assistance 5=Supervision or Setup 2=Maximal Assistance 6=Modified [place] 3=Moderate Assistance 7=Complete [place] Therapy Quality Codes: 6 Independent with activity with or without an assistive device 5 Patient requires set up or clean up by helper. Patient completes activity by themselves 4 Supervision or touching assist (CGA). [place] provide cues , steadying assist 3 The helper provides less than half the effort to complete the activity 2 The helper provides more than half the effort to complete the activity 1 Dependent. The helper does all the effort to complete an activity 7 Patient refused to complete or attempt activity 9 The patient did not perform the activity before the current illness or injury 88 Not attempted due to Medical conditions or safety concerns Functional Abilities and Goals: Independent: Patient completed the activities by him/herself, with or without an assistive device, with no assistance from a helper. Needed Some Help: Patient needed partial assistance from another person to complete activities. Dependent: A helper completed the activities for the patient. Unknown: Not Applicable: ADL PLOF Comments Pt reports being independent prior to admission. States he was walking without AD, prosthesis on right LE. Also states he was using a w/c. Self Care: Independent DME/Equipment: Tub/Shower OT Current Status Subjective Pt in bed, agrees to therapy. Pt reports 7/10 pain in left LE. Chronic back pain Mental Status/Objective Patient Orientation: Person, Place Attachments: PEG Tube Current Glasses/Contacts: Yes (reading glasses) Hearing Aids: No Hand Dominance: Right Upper Extremity ROM decreased right shoulder ROM. Pt reports bone spurs and torn rotator cuff. Remainder grossly functional Upper Extremity Sensation Pt reports neuropathy in hands ADL-Treatment ADL-Current Pt supine to sit with minimal assistance and increased time. Pt sat EOB during UE assessment and grooming tasks. Pt brushed hair and washed face with SBA. Declined further activity. Sit to supine with SBA. Pt resting in bed with needs met after session. Therapy Code Descriptions/Definitions Functional [place] Measure: 0=Not Assessed/NA 4=Minimal Assistance 1=Total Assistance 5=Supervision or Setup 2=Maximal Assistance 6=Modified [place] 3=Moderate Assistance 7=Complete [place] Therapy Quality Codes: 6 Independent with activity with or without an assistive device 5 Patient requires set up or clean up by helper. Patient completes activity by themselves 4 Supervision or touching assist (CGA). [place] provide cues , steadying assist 3 The helper provides less than half the effort to complete the activity 2 The helper provides more than half the effort to complete the activity 1 Dependent. The helper does all the effort to complete an activity 7 Patient refused to complete or attempt activity 9 The patient did not perform the activity before the current illness or injury 88 Not attempted due to Medical conditions or safety concerns Grooming (FIM): 5 Education OT Patient Education: Rehab process Teaching Recipient: Patient Teaching Methods: Discussion Response to Teaching: Verbalize Understanding OT Short Term Goals Short Term Goals 1=Demonstrate adherence to instructed precautions during ADL tasks. 2=Patient will verbalize/demonstrate understanding of assistive devices/modific ations for ADL. 3=Patient will improve strength/tolerance for activity to enable patient to perform ADL's. OT Vp Analysis Goals Vp Analysis Goals Time Frame: Jun 27, 2019 Eating (FIM): 6 Grooming(FIM): 6 Bathing(FIM): 5 Upper Body Dressing(FIM): 6 Lower Body Dressing(FIM): 5 Toilet/Commode Transfer(FIM): 5 Additional Goals: 1-Demonstrate ADL Tasks, 2-Verbalize Understanding, 3- ImproveStrength/Fabián 1=Demonstrate adherence to instructed precautions during ADL tasks. 2=Patient will verbalize/demonstrate understanding of assistive devices/modifications for ADL. 3=Patient will improve strength/tolerance for activity to enable patient to perform ADL's. OT Education/Plan Problem List/Assessment Assessment: Decreased Activ Tolerance, Dependent Transfers, Impaired Self-Care Skills Pt to benefit from skilled OT intervention for ADL training, transfers, strengthening, and home safety education to increase level of independence and allow safe discharge plan. Discharge Recommendations Plan/Recommendations: Continue POC Treatment Plan/Plan of Care Treatment,Training & Education: Yes Patient would benefit from OT for education, treatment and training to promote independence in ADL's, mobility, safety and/or upper extremity function for ADL's. Plan of Care: ADL Retraining, Functional Mobility, UE Funct Exercise/Act Treatment Duration: Jun 27, 2019 Frequency: 5 times per week Estimated Hrs Per Day: .25 hour per day Rehab Potential: Fair Time/GCodes Start Time: 13:50 Stop Time: 14:09 Total Time Billed (hr/min): 19 Billed Treatment Time 1 visit, HENRY(19minutes) NIKKI TAFOYA OT Jun 06, 2019 14:22
--- NOTE | 2019-06-06 15:11 | Physical Therapy Evaluation ---
PT Evaluation-General Medical Diagnosis Admission Date Jun 05, 2019 at 07:34 Medical Diagnosis: left BKA Onset Date: Jun 05, 2019 Therapy Diagnosis Therapy Diagnosis: impaired mobility, strength, endurance, balance Height/Weight Height (Feet): 6 Height (Inches): 4.00 Weight (Pounds): 403 Weight (Ounces): 0.0 Precautions Precautions/Isolations: Standard Precautions Referral Physician: Melly Deluna DO Reason for Referral: Evaluation/Treatment Medical History Pertinent Medical History: Arthritis, CAD, COPD, DM, GERD, HTN, Neuropathy, PVD Additional Medical History Past Medical History Surgeries: Amputation, Orthopedic Respiratory: COPD, Sleep Apnea Currently Using CPAP: No (NOT ANY MORE-LOST IN HOUSE FIRE) Currently Using BIPAP: No Cardiac: Chronic Edema/Swelling, Coronary Artery Disease, High Cholesterol, Hypertension, Peripheral Vascular Neurological: Neuropathy Reproductive: No Gastrointestinal: Gastroesophageal Reflux, Hiatal Hernia Musculoskeletal: Amputee, Arthritis, Chronic Back Pain Endocrine: Diabetes, Insulin dep Loss of Vision: Denies Hearing Impairment: Denies History of Blood Disorders: No Adverse Reaction to Blood Quintero: No Reviewed History: Yes Social History Home: Multilevel (washer/dryer is in basement) Current Living Status: Alone Entry Into Home: Ramp Prior/Core FIM Prior Level of Function Therapy Code Descriptions/Definitions Functional [place] Measure: 0=Not Assessed/NA 4=Minimal Assistance 1=Total Assistance 5=Supervision or Setup 2=Maximal Assistance 6=Modified [place] 3=Moderate Assistance 7=Complete [place] Therapy Quality Codes: 6 Independent with activity with or without an assistive device 5 Patient requires set up or clean up by helper. Patient completes activity by themselves 4 Supervision or touching assist (CGA). [place] provide cues , steadying assist 3 The helper provides less than half the effort to complete the activity 2 The helper provides more than half the effort to complete the activity 1 Dependent. The helper does all the effort to complete an activity 7 Patient refused to complete or attempt activity 9 The patient did not perform the activity before the current illness or injury 88 Not attempted due to Medical conditions or safety concerns Functional Abilities and Goals: Independent: Patient completed the activities by him/herself, with or without an assistive device, with no assistance from a helper. Needed Some Help: Patient needed partial assistance from another person to complete activities. Dependent: A helper completed the activities for the patient. Unknown: Not Applicable: Bed Mobility: 6 Transfers (B,C,W/C) (FIM): 6 Gait: 6 Indoor Mobility (Ambulation): Independent Patient states he was ambulating without an assistive device using a prosthetic leg on the right side which had a previous BKA PT Evaluation-Current Subjective Patient in bed pre tx, has pain of 8/10 in left leg. Patient is very agitated about having another therapy come see him. He needs encouragement to participate and he is very confrontational. Pt/Family Goals none stated Objective Patient Orientation: Person, Place, Situation Attachments: Oxygen, IV ROM/Strength ROM Lower Extremities WNL at the hip and knee on the right side, LLE not tested due to recent surgery. Strength Lower Extremities NT due to patient agitation Sensory Hearing: Functional Transfers Therapy Code Descriptions/Definitions Functional [place] Measure: 0=Not Assessed/NA 4=Minimal Assistance 1=Total Assistance 5=Supervision or Setup 2=Maximal Assistance 6=Modified [place] 3=Moderate Assistance 7=Complete [place] Transfers (B, C, W/C) (FIM): 5 Scootin Rollin Supine to/from Sit: 5 Balance Sitting Static: Normal Sitting Dynamic: Fair Treatment Patient sat at the edge of the bed for about 8 min and performed LAQ and knee flexion x10 bilaterally. Assessment/Needs Patient has impaired mobility, strength, endurance, balance. Patient was very angry about having therapy come in to see him and he needed encouragement to just sit at the edge of the bed. Rehab Potential: Guarded PT Short Term Goals Short Term Goals Time Frame: Jun 13, 2019 Transfers (B,C,W/C) (FIM): 6 Wheelchair (FIM): 6 Wheelchair Distance: 150' Wheelchair Level of Assist: 6 PT Plan Problem List Problem List: Activity Tolerance, Functional Strength, Safety, Balance, Transfer, Bed Mobility, ROM Treatment/Plan Treatment Plan: Continue Plan of Care Treatment Plan: Bed Mobility, Concurrent Therapy, Education, Functional Activity Fabián, Functional Strength, Gait, Safety, Therapeutic Exercise, Transfers Treatment Duration: Jun 13, 2019 Frequency: At least 5 of 7 days/Wk (IRF) Estimated Hrs Per Day: 1.5 hours per day Patient and/or Family Agrees t: Yes Safety Risks/Education Patient Education: Transfer Techniques, Correct Positioning, Safety Issues Teaching Recipient: Patient Teaching Methods: Demonstration, Discussion Response to Teaching: Reinforcement Needed Discharge Recommendations Plan Patient will perform bed mobility and transfers, balance and endurance training, functional strengthening, gait training, and education, to improve functional mobility and independence at home. Therapy D/C Recommendations: Home w/ Family Support, Mcfp (TCU/NH) Time/GCodes Time In: 1450 Time Out: 1503 Total Billed Treatment Time: 13 Total Billed Treatment 1 visit HENRY 13' SAMMIE GUERRIER PT Jun 06, 2019 15:10
--- NOTE | 2019-06-06 16:25 | Progress Note - Surgery ---
Subjective Date Seen by a Provider: Jun 06, 2019 Time Seen by a Provider: 09:12 Subjective/Events-last exam Patient states having some pain but spasms are the worse. Pain is mostly tolerable. Denies any new complaints, denies n/v fever sweats chills shortness of breath or chest pain. Objective Exam Vital Signs Date Time Temp Pulse Resp B/P (MAP) Pulse Ox O2 Delivery O2 Flow Rate FiO2 06/06/19 12:00 98.0 84 20 129/64 (85) 95 Room Air 06/06/19 08:04 Nasal Cannula 3.00 06/06/19 08:00 93 Nasal Cannula 3.00 06/06/19 08:00 98.4 79 20 126/73 (90) 95 Room Air 06/06/19 04:45 96.3 83 20 126/71 (89) 93 Nasal Cannula 3.00 06/06/19 00:08 96.8 86 20 123/70 (87) 94 Nasal Cannula 3.00 06/05/19 21:00 Nasal Cannula 3.00 06/05/19 20:35 97.4 86 20 123/77 (92) 97 Nasal Cannula 3.00 06/05/19 20:06 95 Nasal Cannula 3.00 06/05/19 16:55 97.4 82 20 122/63 (82) 95 Nasal Cannula 3.00 I & O 06/06/19 07:00 Intake Total 2380 ml Output Total 2625 ml Balance -245 ml Capillary Refill : Less Than 3 Seconds General Appearance: No Apparent Distress, WD/WN, Chronically ill, Obese HEENT: PERRL/EOMI, Normal ENT Inspection, Pharynx Normal Neck: Full Range of Motion, Normal Inspection, Non Tender Respiratory: Chest Non Tender, No Accessory Muscle Use, No Respiratory Distress Cardiovascular: Regular Rate, Rhythm Extremity: Normal Range of Motion (right healed bka, left bka c/d/i mild swelling to stump), No Calf Tenderness Neurologic/Psychiatric: Alert, Oriented x3, No Motor/Sensory Deficits, Normal Mood/Affect Skin: Normal Color, Warm/Dry Lymphatic: No Adenopathy Results Lab Laboratory Tests 06/05/19 21:57: Glucometer 184H 06/06/19 04:11: White Blood Count 12.5H, Red Blood Count 4.66, Hemoglobin 13.0L, Hematocrit 41, Mean Corpuscular Volume 87, Mean Corpuscular Hemoglobin 28, Mean Corpuscular Hemoglobin Concent 32, Red Cell Distribution Width 13.2, Platelet Count 157, Mean Platelet Volume 9.9, Neutrophils (%) (Auto) 71, Lymphocytes (%) (Auto) 15, Monocytes (%) (Auto) 12, Eosinophils (%) (Auto) 2, Basophils (%) (Auto) 0, Neutrophils # (Auto) 8.9H, Lymphocytes # (Auto) 1.9, Monocytes # (Auto) 1.5H, Eosinophils # (Auto) 0.3, Basophils # (Auto) 0.0, Sodium Level 133L, Potassium Level 4.3, Chloride Level 95L, Carbon Dioxide Level 29, Anion Gap 9, Blood Urea Nitrogen 10, Creatinine 0.77, Estimat Glomerular Filtration Rate > 60, BUN/Creatinine Ratio 13, Glucose Level 132H, Calcium Level 9.2, Corrected Calcium 9.8, Total Bilirubin 0.7, Aspartate Amino Transf (AST/SGOT) 27, Alanine Aminotransferase (ALT/SGPT) 14, Alkaline Phosphatase 98, Total Protein 6.9, Albumin 3.2 06/06/19 05:48: Glucometer 134H 06/06/19 11:09: Glucometer 164H Assessment/Plan Assessment/Plan Assessment/Plan s/p left bka took down dressing and doing well, re-wrapped, dressing change daily, keep clean and dry will start on Lovenox. Dr. Ballesteros covering while i'm gone. Clinical Quality Measures DVT/VTE Risk/Contraindication: Risk Factor Score Per Nursin RFS Level Per Nursing on Admit: 4+=Very High ARGELIA LECHUGA DO Jun 06, 2019 16:25
[2019-06-06] MEDS ORDERED: ENOXAPARIN 30 MG/0.3 ML (LOVENOX) SYR SC SCH (16:30)
[2019-06-06] MEDS: ENOXAPARIN 40 MG/0.4 ML (LOVENOX) SYR SC SCH (17:52)
[2019-06-06] MEDS: ATORVASTATIN 40 MG (LIPITOR) TABLET PO SCH (19:42)
[2019-06-06] MEDS: PANTOPRAZOLE 40 MG (PROTONIX) TAB PO SCH (19:42)
[2019-06-06] MEDS: RT-ADVAIR HFA 115/21 MCG PER PUFF IH SCH (20:21)
[2019-06-06] MEDS ORDERED: NON-FORMULARY MEDICATION 1 EA EA (Varenicline Tartrate (Chantix) 1 MG) PO SCH (21:00)
[2019-06-07] MEDS: HYDROcodone/APAP 5 MG/325 MG (LORTAB) TAB PO PRN ×4 (03:32→21:01)
[2019-06-07 04:00] VITALS: BP 120/87
[2019-06-07] MEDS: inSUlin ASPART (NovoLOG) 1 UNIT/0.01 ML (CHARGE PER UNIT) SC SCH ×7 (05:14→21:06)
[2019-06-07 05:20] VITALS: BP 120/87
[2019-06-07] MEDS: ENOXAPARIN 40 MG/0.4 ML (LOVENOX) SYR SC SCH ×2 (05:50→17:39)
[2019-06-07] MEDS: glipiZIDE 5 MG (GLUCOTROL) TAB PO SCH (05:52)
[2019-06-07 08:00] VITALS: BP 140/98
[2019-06-07] MEDS: CYCLOBENZAPRINE 10 MG (FLEXERIL) TAB PO PRN ×2 (08:08→15:01)
[2019-06-07] MEDS: ASPIRIN 81 MG CHEW (CHILDREN'S ASA) PO SCH (08:08)
[2019-06-07] MEDS: GABAPENTIN 600 MG (NEURONTIN) TAB PO SCH ×3 (08:08→21:00)
[2019-06-07] MEDS: RT-ADVAIR HFA 115/21 MCG PER PUFF IH SCH ×2 (08:40→19:07)
--- NOTE | 2019-06-07 08:52 | NUR ---
DUE TO PATIENTS O2 SAT OF 98%, RT DECREASED O2 FROM 3 L TO 2 L AND INFORMED RN JACKLYN OF THIS CHANGE
[2019-06-07] MEDS: BACLOFEN 10 MG (LIORESAL) TAB PO PRN ×3 (10:44→21:00)
[2019-06-07] MEDS: morphine INJ 4 MG/ML 1 ML (VIAL/SYRINGE) IVP PRN (10:44)
--- NOTE | 2019-06-07 11:40 | Progress Note - Surgery ---
Subjective Time Seen by a Provider: 09:52 Subjective/Events-last exam Pt seen and examined, complains of mostly pain just above stump. Tolerating diet, with good urine output. Review of Systems General: No Chills, No Night Sweats Pulmonary: No Dyspnea, No Cough Cardiovascular: No: Chest Pain, Palpitations Objective Exam Vital Signs Date Time Temp Pulse Resp B/P (MAP) Pulse Ox O2 Delivery O2 Flow Rate FiO2 06/07/19 08:40 98 Nasal Cannula 3.00 06/07/19 08:00 Room Air 0.00 06/07/19 08:00 98.1 84 20 140/98 (112) 94 Nasal Cannula 3.00 06/07/19 05:20 97.4 86 21 120/87 (98) 96 Nasal Cannula 3.00 06/07/19 04:00 97.4 86 21 120/87 (98) 96 Nasal Cannula 3.00 06/06/19 23:35 98.2 90 22 115/69 (84) 94 Nasal Cannula 3.00 06/06/19 21:00 93 Nasal Cannula 3.00 06/06/19 20:22 95 Nasal Cannula 3.00 06/06/19 20:15 98.6 84 22 107/55 (72) 95 Nasal Cannula 3.00 06/06/19 16:25 97.2 85 20 126/71 (89) 96 Nasal Cannula 3.00 06/06/19 12:00 98.0 84 20 129/64 (85) 95 Room Air I & O 06/07/19 07:00 Intake Total 5140 ml Output Total 4975 ml Balance 165 ml Capillary Refill : Less Than 3 Seconds General Appearance: No Apparent Distress, Obese HEENT: PERRL/EOMI Respiratory: Chest Non Tender, Lungs Clear, No Accessory Muscle Use, No Respiratory Distress Cardiovascular: Regular Rate, Rhythm Extremity: Normal Range of Motion (right healed bka, left bka c/d/i mild swelling to stump, most tender just above distal end of tibia) Neurologic/Psychiatric: Alert, Oriented x3 Results Lab Laboratory Tests 06/06/19 16:25: Glucometer 181H 06/06/19 21:10: Glucometer 205H 06/07/19 05:10: Glucometer 165H 06/07/19 11:27: Glucometer 131H Assessment/Plan Assessment/Plan Assessment/Plan s/p left bka took down dressing and doing well, will have nurse re-wrap, dressing change daily, keep clean and dry will start on Lovenox. Clinical Quality Measures DVT/VTE Risk/Contraindication: Risk Factor Score Per Nursin RFS Level Per Nursing on Admit: 4+=Very High SEBAS TOWNSEND DO Jun 07, 2019 11:40
[2019-06-07 12:00] VITALS: BP 126/67
--- NOTE | 2019-06-07 12:36 | Progress Note - Hospitalist ---
Subjective HPI/CC On Admission Date Seen by Provider: Jun 07, 2019 Time Seen by Provider: 11:15 Chief complaint: Status post uncomplicated left below the knee amputation History present illness: This is a 54-year-old white male clinic patient of [facility] with a past medical history of morbid obesity in addition to diabetes who presents following an uncomplicated left below the knee amputation. 5 other partial amputations had been performed that resulted in remaining nonhealing ulcerations so the decision was made to complete the amputation in order to facilitate healing and placement of a prosthesis. At this current time patient reports muscle spasms so I did order baclofen. He use to have home oxygen but he stopped wearing it. He appears to have high risk for sleep apnea. I have restarted all of his home medications and will initiate PT and OT orders and place inpatient rehabilitation eval. He quit smoking 5 weeks ago with the help of Xochitl. Subjective/Events-last exam Baclofen is working well for him Pain is manageable Checked meds and labs Using IS PT/OT ordered IRF? Review of Systems General: Fatigue Objective Exam Vital Signs Vital Signs Date Time Temp Pulse Resp B/P (MAP) Pulse Ox O2 Delivery O2 Flow Rate FiO2 06/07/19 12:00 97.6 77 18 126/67 (86) 96 Nasal Cannula 3.00 Capillary Refill : Less Than 3 Seconds General Appearance: No Apparent Distress, WD/WN, Chronically ill, Obese HEENT: PERRL/EOMI Respiratory: Chest Non Tender, Lungs Clear, No Accessory Muscle Use, No Respiratory Distress, Decreased Breath Sounds Cardiovascular: Regular Rate, Rhythm Gastrointestinal: Normal Bowel Sounds, No Organomegaly, No Pulsatile Mass, Non Tender, Soft Back: Normal Inspection, No CVA Tenderness, No Vertebral Tenderness Extremity: Normal Range of Motion (right healed bka, left bka c/d/i mild sw elling to stump, most tender just above distal end of tibia) Neurologic/Psychiatric: Alert, Oriented x3 Skin: Normal Color, Warm/Dry, Other (subtle erythema of the left stump) Results/Procedures Lab Patient resulted labs reviewed. Assessment/Plan Assessment and Plan Assess & Plan/Chief Complaint Assessment: Status post uncomplicated left below the knee amputation POD # 2 Hypertension Obesity Diabetes mellitus Acute muscle spasms ordered baclofen Presumed obstructive sleep apnea Recent smoking cessation with the help of Xochitl Plan: Restarted all home meds PT and OT Rehabilitation consult Continue smoking cessation Pain control Baclofen for muscle spasms Monitor labs Diagnosis/Problems Diagnosis/Problems (1) Amputation of left lower extremity below knee (2) Debility Status: Acute (3) Peripheral vascular disease Status: Chronic (4) IDDM (insulin dependent diabetes mellitus) Status: Chronic (5) Chronic pain Status: Chronic Qualifiers: Chronic pain type: chronic pain syndrome Qualified Codes: G89.4 - Chronic pain syndrome (6) Hypertension Status: Chronic Qualifiers: Hypertension type: essential hypertension Qualified Codes: I10 - Essential (primary) hypertension (7) Hyperlipidemia Status: Chronic Qualifiers: Hyperlipidemia type: mixed hyperlipidemia Qualified Codes: E78.2 - Mixed hyperlipidemia (8) Marijuana use Status: Chronic Clinical Quality Measures DVT/VTE Risk/Contraindication: Risk Factor Score Per Nursin RFS Level Per Nursing on Admit: 4+=Very High SARAHY SANTANA DO Jun 07, 2019 12:36
--- NOTE | 2019-06-07 13:43 | Physical Therapy Daily Note ---
PT Daily Note-Current Subjective Pt. in bed, says he has been moving his L leg around and sitting at EOB already. Agrees to therapy, but states "this is just going to hurt this leg." No objective pain rating given. Transfers Therapy Code Descriptions/Definitions Functional [place] Measure: 0=Not Assessed/NA 4=Minimal Assistance 1=Total Assistance 5=Supervision or Setup 2=Maximal Assistance 6=Modified [place] 3=Moderate Assistance 7=Complete [place] Therapy Quality Codes: 6 Independent with activity with or without an assistive device 5 Patient requires set up or clean up by helper. Patient completes activity by themselves 4 Supervision or touching assist (CGA). [place] provide cues , steadying assist 3 The helper provides less than half the effort to complete the activity 2 The helper provides more than half the effort to complete the activity 1 Dependent. The helper does all the effort to complete an activity 7 Patient refused to complete or attempt activity 9 The patient did not perform the activity before the current illness or injury 88 Not attempted due to Medical conditions or safety concerns Transfers (B, C, W/C) (FIM): 5 Sit to/from Stand: 5 Exercises Supine Ex: Quad Set, Glut sets, Straight leg raise, Hip abd/add Supine Reps: 20 Treatments Pt. sat at EOB briefly before returning to supine position. He had increased L limb pain with sitting at EOB. He did well with L leg exercises. Pt. in bed with call light and all needs met. PT Short Term Goals Short Term Goals Time Frame: Jun 13, 2019 Transfers (B,C,W/C) (FIM): 6 Wheelchair (FIM): 6 Wheelchair Distance: 150' Wheelchair Level of Assist: 6 PT Plan Treatment/Plan Treatment Plan: Continue Plan of Care Treatment Plan: Bed Mobility, Concurrent Therapy, Education, Functional Activ ity Fabián, Functional Strength, Gait, Safety, Therapeutic Exercise, Transfers Treatment Duration: Jun 13, 2019 Frequency: At least 5 of 7 days/Wk (IRF) Estimated Hrs Per Day: 1.5 hours per day Patient and/or Family Agrees t: Yes Time/GCodes Time In: 846 Time Out: 857 Total Billed Treatment Time: 11 Total Billed Treatment 1, Ex 11' MERLIN ESTEVES PT Jun 07, 2019 13:43
[2019-06-07] MEDS: LACTATED RINGERS 1,000 ML IV SCH (14:16)
[2019-06-07 16:12] VITALS: BP 129/56
[2019-06-07 19:55] VITALS: BP 110/54
[2019-06-07] MEDS: PANTOPRAZOLE 40 MG (PROTONIX) TAB PO SCH (21:00)
[2019-06-07] MEDS: ATORVASTATIN 40 MG (LIPITOR) TABLET PO SCH (21:00)
[2019-06-08 00:45] VITALS: BP 95/60
[2019-06-08 04:00] VITALS: BP 110/63
[2019-06-08] MEDS: CYCLOBENZAPRINE 10 MG (FLEXERIL) TAB PO PRN (05:23)
[2019-06-08] MEDS: HYDROcodone/APAP 5 MG/325 MG (LORTAB) TAB PO PRN ×4 (05:24→23:35)
[2019-06-08 05:43] LABS: BASOPHILS % (AUTO) 0 % (0-10); EOSINOPHILS # (AUTO) 0.2 10^3/uL (0.0-0.3); EOSINOPHILS % (AUTO) 2 % (0-10); HEMATOCRIT 39 % (40-54); HEMOGLOBIN 12.3 G/DL (13.3-17.7); LYMPHOCYTES # (AUTO) 1.4 X 10^3 (1.0-4.0); LYMPHOCYTES % (AUTO) 18 % (12-44); MEAN CORPUSCULAR HGB CONC 32 G/DL (32-36); MEAN CORPUSCULAR VOLUME 87 FL (80-99); MEAN PLATELET VOLUME 9.3 FL (7.4-10.4); MONOCYTES # (AUTO) 0.8 X 10^3 (0.0-1.0); MONOCYTES % (AUTO) 10 % (0-12); NEUTROPHILS # (AUTO) 5.8 X 10^3 (1.8-7.8); NEUTROPHILS % (AUTO) 70 % (42-75); PLATELET COUNT 171 10^3/uL (130-400); RED CELL DISTRIBUTION WIDTH 13.2 % (10.0-14.5); WHITE BLOOD COUNT 8.3 10^3/uL (4.3-11.0)
[2019-06-08 05:48] LABS: MEAN CORPUSCULAR HEMOGLOBIN 27 PG (25-34)
[2019-06-08 06:07] LABS: ALANINE AMINOTRANSFERASE 12 U/L (0-55); ALKALINE PHOSPHATASE 87 U/L (40-136); BILIRUBIN,TOTAL 0.5 MG/DL (0.1-1.0); BUN/CREATININE RATIO 14; CALCIUM 9.3 MG/DL (8.5-10.1); CARBON DIOXIDE 29 MMOL/L (21-32); CHLORIDE 97 MMOL/L (98-107); CREATININE SERUM 0.78 MG/DL (0.60-1.30); GFR ESTIMATED > 60; GLUCOSE 142 MG/DL (70-105); SODIUM 135 MMOL/L (135-145); TOTAL PROTEIN 6.9 GM/DL (6.4-8.2)
[2019-06-08] MEDS: ENOXAPARIN 40 MG/0.4 ML (LOVENOX) SYR SC SCH ×2 (06:58→17:29)
[2019-06-08] MEDS: inSUlin ASPART (NovoLOG) 1 UNIT/0.01 ML (CHARGE PER UNIT) SC SCH ×7 (06:59→21:44)
[2019-06-08] MEDS: glipiZIDE 5 MG (GLUCOTROL) TAB PO SCH (07:01)
[2019-06-08] MEDS: RT-ADVAIR HFA 115/21 MCG PER PUFF IH SCH ×2 (07:43→19:44)
--- NOTE | 2019-06-08 07:47 | NUR ---
PATIENT HAS O2 ORDER TKS GREATER THAN 92% (2-4 L); PATIENT WAS SATTING 95% SO RT PLACED PATIENT ON RA AND INFORMED OF THE DAY RN JACKLYN OF THIS CHANGE.
[2019-06-08 08:00] VITALS: BP 117/76
[2019-06-08] MEDS: BACLOFEN 10 MG (LIORESAL) TAB PO PRN ×3 (08:28→21:42)
[2019-06-08] MEDS: ASPIRIN 81 MG CHEW (CHILDREN'S ASA) PO SCH (08:28)
[2019-06-08] MEDS: GABAPENTIN 600 MG (NEURONTIN) TAB PO SCH ×3 (08:28→21:42)
--- NOTE | 2019-06-08 11:20 | Progress Note - Hospitalist ---
Subjective HPI/CC On Admission Date Seen by Provider: Jun 08, 2019 Time Seen by Provider: 12:00 Chief complaint: Status post uncomplicated left below the knee amputation History present illness: This is a 54-year-old white male clinic patient of [facility] with a past medical history of morbid obesity in addition to diabetes who presents following an uncomplicated left below the knee amputation. 5 other partial amputations had been performed that resulted in remaining nonhealing ulcerations so the decision was made to complete the amputation in order to facilitate healing and placement of a prosthesis. At this current time patient reports muscle spasms so I did order baclofen. He use to have home oxygen but he stopped wearing it. He appears to have high risk for sleep apnea. I have restarted all of his home medications and will initiate PT and OT orders and place inpatient rehabilitation eval. He quit smoking 5 weeks ago with the help of Chantix. Subjective/Events-last exam Patient doing better We will get up out of bed today Pain is controlled Reviewed meds and labs Will work on bowel movement today and initiate MiraLAX and senna twice daily Blood sugars are satisfactory Maintain on room air now Review of Systems General: Fatigue Objective Exam Vital Signs Vital Signs Date Time Temp Pulse Resp B/P (MAP) Pulse Ox O2 Delivery O2 Flow Rate FiO2 06/08/19 12:00 97.1 71 18 113/66 (82) 94 Nasal Cannula 3.00 Capillary Refill : Less Than 3 Seconds General Appearance: No Apparent Distress, WD/WN, Chronically ill, Obese HEENT: PERRL/EOMI Respiratory: Chest Non Tender, Lungs Clear, No Accessory Muscle Use, No Respiratory Distress, Decreased Breath Sounds Cardiovascular: Regular Rate, Rhythm Gastrointestinal: Normal Bowel Sounds, No Organomegaly, No Pulsatile Mass, Non Tender, Soft Back: Normal Inspection, No CVA Tenderness, No Vertebral Tenderness Extremity: Normal Range of Motion (right healed bka, left bka c/d/i mild swelling to stump, most tender just above distal end of tibia) Neurologic/Psychiatric: Alert, Oriented x3 Skin: Normal Color, Warm/Dry, Other (subtle erythema of the left stump) Results/Procedures Lab Laboratory Tests 06/08/19 05:05 Patient resulted labs reviewed. Assessment/Plan Assessment and Plan Assess & Plan/Chief Complaint Assessment: Status post uncomplicated left below the knee amputation POD # 3 Hypertension Obesity Diabetes mellitus Acute muscle spasms ordered baclofen Presumed obstructive sleep apnea Recent smoking cessation with the help of Chantix Plan: Restarted all home meds PT and OT Rehabilitation consult Continue smoking cessation Pain control Baclofen for muscle spasms Monitor labs Diagnosis/Problems Diagnosis/Problems (1) Amputation of left lower extremity below knee (2) Debility Status: Acute (3) Peripheral vascular disease Status: Chronic (4) IDDM (insulin dependent diabetes mellitus) Status: Chronic (5) Chronic pain Status: Chronic Qualifiers: Chronic pain type: chronic pain syndrome Qualified Codes: G89.4 - Chronic pain syndrome (6) Hypertension Status: Chronic Qualifiers: Hypertension type: essential hypertension Qualified Codes: I10 - Essential (primary) hypertension (7) Hyperlipidemia Status: Chronic Qualifiers: Hyperlipidemia type: mixed hyperlipidemia Qualified Codes: E78.2 - Mixed hyperlipidemia (8) Marijuana use Status: Chronic Clinical Quality Measures DVT/VTE Risk/Contraindication: Risk Factor Score Per Nursin RFS Level Per Nursing on Admit: 4+=Very High SARAHY SANTANA DO Jun 08, 2019 11:20
[2019-06-08 12:00] VITALS: BP 113/66
--- NOTE | 2019-06-08 14:05 | Progress Note - Surgery ---
Subjective Time Seen by a Provider: 11:58 Subjective/Events-last exam Pt seen and examined, states he is doing better today; "feels less tight and pain is better". Review of Systems General: No Chills, No Night Sweats Pulmonary: No Dyspnea, No Cough Cardiovascular: No: Chest Pain Objective Exam Vital Signs Date Time Temp Pulse Resp B/P (MAP) Pulse Ox O2 Delivery O2 Flow Rate FiO2 06/08/19 12:00 97.1 71 18 113/66 (82) 94 Nasal Cannula 3.00 06/08/19 08:00 Room Air 0.00 06/08/19 08:00 97.2 63 20 117/76 (90) 98 Nasal Cannula 3.00 06/08/19 07:43 95 Nasal Cannula 2.00 06/08/19 04:00 97.2 67 20 110/63 (79) 99 Nasal Cannula 3.00 06/08/19 00:45 96.8 65 18 95/60 (72) 97 Nasal Cannula 3.00 06/07/19 21:00 Room Air 0.00 06/07/19 19:55 97.0 84 18 110/54 (72) 96 Nasal Cannula 3.00 06/07/19 19:07 92 Nasal Cannula 2.00 06/07/19 16:12 100.4 85 20 129/56 (80) 97 Nasal Cannula 2.00 I & O 06/08/19 07:00 Intake Total 1022 ml Output Total 2600 ml Balance -1578 ml Capillary Refill : Less Than 3 Seconds General Appearance: No Apparent Distress, Chronically ill, Obese Respiratory: Chest Non Tender, Lungs Clear, No Accessory Muscle Use, No Respiratory Distress Cardiovascular: Regular Rate, Rhythm Extremity: Normal Range of Motion (right healed bka, left bka c/d/i, Less swelling in stump today, most tender just above distal end of tibia this area now looks much better than it did yesterday. ) Neurologic/Psychiatric: Alert, Oriented x3 Results Lab Laboratory Tests 06/07/19 16:12: Glucometer 143H 06/07/19 20:59: Glucometer 154H 06/08/19 05:05: White Blood Count 8.3, Red Blood Count 4.48, Hemoglobin 12.3L, Hematocrit 39L, Mean Corpuscular Volume 87, Mean Corpuscular Hemoglobin 27, Mean Corpuscular Hemoglobin Concent 32, Red Cell Distribution Width 13.2, Platelet Count 171, Mean Platelet Volume 9.3, Neutrophils (%) (Auto) 70, Lymphocytes (%) (Auto) 18, Monocytes (%) (Auto) 10, Eosinophils (%) (Auto) 2, Basophils (%) (Auto) 0, Neutrophils # (Auto) 5.8, Lymphocytes # (Auto) 1.4, Monocytes # (Auto) 0.8, Eosinophils # (Auto) 0.2, Basophils # (Auto) 0.0, Sodium Level 135, Potassium Level 4.0, Chloride Level 97L, Carbon Dioxide Level 29, Anion Gap 9, Blood Urea Nitrogen 11, Creatinine 0.78, Estimat Glomerular Filtration Rate > 60, BUN/Creatinine Ratio 14, Glucose Level 142H, Calcium Level 9.3, Corrected Calcium 10.1, Total Bilirubin 0.5, Aspartate Amino Transf (AST/SGOT) 17, Alanine Aminotransferase (ALT/SGPT) 12, Alkaline Phosphatase 87, Total Protein 6.9, Albumin 3.0L 06/08/19 05:54: Glucometer 179H 06/08/19 11:07: Glucometer 201H Assessment/Plan Assessment/Plan Assessment/Plan s/p left bka Pulled down dressing to look at tibial area; much less erythema and swelling today. Continue elevation and dressing changes. Pt can go to rehab tomorrow. Clinical Quality Measures DVT/VTE Risk/Contraindication: Risk Factor Score Per Nursin RFS Level Per Nursing on Admit: 4+=Very High SEBAS TOWNSEND DO Jun 08, 2019 14:05
[2019-06-08 15:52] VITALS: BP 104/48
[2019-06-08] MEDS: SENNA W/DOCUSATE (SENOKOT S) TABLET PO SCH (21:41)
[2019-06-08] MEDS: POLYETHYLENE GLYCOL 17 GM (MIRALAX) PACK PO SCH (21:41)
[2019-06-08] MEDS: PANTOPRAZOLE 40 MG (PROTONIX) TAB PO SCH (21:42)
[2019-06-08] MEDS: ATORVASTATIN 40 MG (LIPITOR) TABLET PO SCH (21:42)
[2019-06-09] VITALS: BP 108/66
[2019-06-09] MEDS: HYDROcodone/APAP 5 MG/325 MG (LORTAB) TAB PO PRN ×4 (06:10→19:55)
[2019-06-09] MEDS: BACLOFEN 10 MG (LIORESAL) TAB PO PRN ×2 (06:10→15:18)
[2019-06-09] MEDS: inSUlin ASPART (NovoLOG) 1 UNIT/0.01 ML (CHARGE PER UNIT) SC SCH ×7 (06:19→21:16)
[2019-06-09] MEDS: glipiZIDE 5 MG (GLUCOTROL) TAB PO SCH (06:52)
[2019-06-09] MEDS: ENOXAPARIN 40 MG/0.4 ML (LOVENOX) SYR SC SCH ×2 (06:52→17:16)
[2019-06-09 08:00] VITALS: BP 119/74
[2019-06-09] MEDS: RT-ADVAIR HFA 115/21 MCG PER PUFF IH SCH ×2 (08:19→20:17)
[2019-06-09] MEDS: SENNA W/DOCUSATE (SENOKOT S) TABLET PO SCH ×2 (08:59→19:53)
[2019-06-09] MEDS: GABAPENTIN 600 MG (NEURONTIN) TAB PO SCH ×3 (09:00→19:53)
[2019-06-09] MEDS: POLYETHYLENE GLYCOL 17 GM (MIRALAX) PACK PO SCH ×2 (09:00→19:52)
[2019-06-09] MEDS: ASPIRIN 81 MG CHEW (CHILDREN'S ASA) PO SCH (09:00)
--- NOTE | 2019-06-09 10:32 | NUR ---
PRIOR TO A.M. MEDICATIONS PULSE WAS 67 BPM AND B/P WAS 119/74.
[2019-06-09] MEDS: CYCLOBENZAPRINE 10 MG (FLEXERIL) TAB PO PRN ×2 (11:26→19:53)
--- NOTE | 2019-06-09 11:27 | NUR ---
IRF Evaluation Chart review complete and findings discussed with Dr. Deluna - patient accepted. Anticipate admission, 06/10/19. CM/TYSON notified. Thank you for this referral. Addendum: 06/09/19 at 1505 by BERHANE Rachel MEHTA Met with patient to discuss details of rehabilitation program. Patient agreeable to required therapy regimen and admission. Patient has hx of Rachel LOZANO; therefore, states he is familiar with rehabilitation process and feels prepared in regards to DME, at home, [place] [facility] and hospital bed.
--- NOTE | 2019-06-09 12:01 | Occupational Ther Daily Note ---
OT Current Status-Daily Note Subjective Pt alert, lying in bed. Pt agrees to therapy. Nrsg in room giving pt meds. Mental Status/Objective Patient Orientation: Person, Place, Time, Situation Therapy Code Descriptions/Definitions Functional [place] Measure: 0=Not Assessed/NA 4=Minimal Assistance 1=Total Assistance 5=Supervision or Setup 2=Maximal Assistance 6=Modified [place] 3=Moderate Assistance 7=Complete [place] Attachments: IV, Oxygen ADL-Treatment Pt demonstrates mod I bed mobility and good sitting balance. Other Treatment Skilled instruction required for correct technique and instruction of isometric exercises. Physical cues required for proper arm placement during exercises. Pt c/o pain with full R shldr AROM. 4 exercises 2 sets 10 reps of each. Pt tolerated well. After therapy, pt lying in bed with call light/phone in reach. All needs met in room. OT Short Term Goals Short Term Goals Transfers (B,C,W/C) (FIM): 6 1=Demonstrate adherence to instructed precautions during ADL tasks. 2=Patient will verbalize/demonstrate understanding of assistive devices/modifications for ADL. 3=Patient will improve strength/tolerance for activity to enable patient to perform ADL's. OT Group Home Goals Wrapping Machine Tender Goals Time Frame: Jun 27, 2019 Eating (FIM): 6 Grooming(FIM): 6 Bathing(FIM): 5 Upper Body Dressing(FIM): 6 Lower Body Dressing(FIM): 5 Toilet/Commode Transfer(FIM): 5 Additional Goals: 1-Demonstrate ADL Tasks, 2-Verbalize Understanding, 3- ImproveStrength/Fabián 1=Demonstrate adherence to instructed precautions during ADL tasks. 2=Patient will verbalize/demonstrate understanding of assistive devices/modifications for ADL. 3=Patient will improve strength/tolerance for activity to enable patient to perform ADL's. OT Education/Plan Problem List/Assessment Assessment: Decreased UE Strength, Impaired Self-Care Skills Pt to benefit from skilled OT intervention for ADL training, transfers, strengthening, and home safety education to increase level of independence and allow safe discharge plan. Discharge Recommendations Plan/Recommendations: Continue POC Treatment Plan/Plan of Care Patient would benefit from OT for education, treatment and training to promote independence in ADL's, mobility, safety and/or upper extremity function for ADL's. Plan of Care: ADL Retraining, Functional Mobility, UE Funct Exercise/Act Treatment Duration: Jun 27, 2019 Frequency: 5 times per week Estimated Hrs Per Day: .25 hour per day Rehab Potential: Fair Time/GCodes Start Time: 11:35 Stop Time: 11:45 Total Time Billed (hr/min): 10 Billed Treatment Time 1 visit-EX 1 (10 min) SHANTANU SORIANO Jun 09, 2019 12:00
--- NOTE | 2019-06-09 12:31 | NUR ---
Initial visit with pt: pt affiliates as [employer] and does not currently have a carlos community. 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 Pt's friend a month ago last March. Offered active listening and engaged in rapport building.
--- NOTE | 2019-06-09 13:54 | Physical Therapy Daily Note ---
PT Daily Note-Current Subjective Pt agreeable to therapy. No c/o pain at this time. Mental Status Patient Orientation: Normal For Age Transfers Therapy Code Descriptions/Definitions Functional [place] Measure: 0=Not Assessed/NA 4=Minimal Assistance 1=Total Assistance 5=Supervision or Setup 2=Maximal Assistance 6=Modified [place] 3=Moderate Assistance 7=Complete [place] Therapy Quality Codes: 6 Independent with activity with or without an assistive device 5 Patient requires set up or clean up by helper. Patient completes activity by themselves 4 Supervision or touching assist (CGA). [place] provide cues , steadying assist 3 The helper provides less than half the effort to complete the activity 2 The helper provides more than half the effort to complete the activity 1 Dependent. The helper does all the effort to complete an activity 7 Patient refused to complete or attempt activity 9 The patient did not perform the activity before the current illness or injury 88 Not attempted due to Medical conditions or safety concerns Transfer supine to sit at edge of bed without assist using bed rails. Sit to stand with right prosthetic limb, FWW, and elevated bed with Min A. Gait Training Attempted to take step wearing (R) prosthesis and using FWW. Pt unable to bear full wt through arms to allow advance of the (R) LE. Treatments Performed seated and supine PROM for (L) knee flexion and extension. QS x 10 with 5 second hold, SLR x 10. Instruction on self exercise of AROM knee flex/ext and quad sets. Assessment Pt is showing improved mobility within the bed. Pt is a large man leading to safety issues during standing and gait training. He will benefit from use of parallel bars to assist in taking first steps. Pt will have difficulty with ambulation until he can be fitted for a (L) prosthesis. W/c is likely the primary means of locomotion until that time. PT Short Term Goals Short Term Goals Time Frame: Jun 13, 2019 Transfers (B,C,W/C) (FIM): 6 Wheelchair (FIM): 6 Wheelchair Distance: 150' Wheelchair Level of Assist: 6 PT Prison Goals Prison Goals PT Prison Goals Time Frame: Jun 13, 2019 Transfers (B,C,W/C) (FIM): 5 Gait (FIM): 1 Gait distance (FIM): 0=does not occure Gait Assistive Device: Parallel Bars PT Plan Problem List Problem List: Activity Tolerance, Balance, Bed Mobility, ROM Treatment/Plan Treatment Plan: Continue Plan of Care Treatment Plan: Bed Mobility, Concurrent Therapy, Education, Functional Activity Fabián, Functional Strength, Gait, Safety, Therapeutic Exercise, Transfers Treatment Duration: Jun 13, 2019 Frequency: At least 5 of 7 days/Wk (IRF) Estimated Hrs Per Day: 1.5 hours per day Patient and/or Family Agrees t: Yes Time/GCodes Time In: 1300 Time Out: 1325 Total Billed Treatment Time: 25 Total Billed Treatment ex 10 min, FA 15 min GENESIS TENA PT Jun 09, 2019 13:54
--- NOTE | 2019-06-09 14:03 | Progress Note ---
Subjective Subjective/Events-last exam Afebrile, reports pain is controlled with medications. Review of Systems Date Seen by Provider: Jun 09, 2019 Time Seen by Provider: 10:25 Objective Exam Last Set of Vital Signs Vital Signs Date Time Temp Pulse Resp B/P (MAP) Pulse Ox O2 Delivery O2 Flow Rate FiO2 06/09/19 08:20 95 Nasal Cannula 2.00 06/09/19 08:00 97.6 67 20 119/74 (89) Capillary Refill : Less Than 3 Seconds I&O Intake and Output 06/09/19 00:00 Intake Total 1700 ml Output Total 2525 ml Balance -825 ml Intake Oral 1700 ml Output Urine Total 2525 ml General: Alert, No Acute Distress Extremities: Other (Left BKA wrapped with no drainage on bandage) Neuro: Normal Speech Results/Procedures Lab Laboratory Tests 06/08/19 15:56: Glucometer 143H 06/08/19 20:43: Glucometer 208H 06/09/19 05:23: Glucometer 133H 06/09/19 10:50: Glucometer 170H Assessment/Plan Assessment/Plan Assessment & Plan Status post uncomplicated left below the knee amputation- management per Surgery Diabetes mellitus- ADA diet, home insulin and glipizide and dulaglutide, sliding scale insulin Acute muscle spasms- baclofen Presumed obstructive sleep apnea- will need outpatient testing, wean supplemental oxygen as tolerated DVT ppx- enoxaparin Clinical Quality Measures DVT/VTE Risk/Contraindication: Risk Factor Score Per Nursin RFS Level Per Nursing on Admit: 4+=Very High CATY SIEGEL MD Jun 09, 2019 14:02
[2019-06-09 15:52] VITALS: BP 146/66
[2019-06-09] MEDS: PANTOPRAZOLE 40 MG (PROTONIX) TAB PO SCH (19:53)
[2019-06-09] MEDS: ATORVASTATIN 40 MG (LIPITOR) TABLET PO SCH (19:53)
[2019-06-10] MEDS: morphine INJ 4 MG/ML 1 ML (VIAL/SYRINGE) IVP PRN (00:04)
[2019-06-10 00:20] VITALS: BP 128/77
[2019-06-10] MEDS: CYCLOBENZAPRINE 10 MG (FLEXERIL) TAB PO PRN (04:20)
[2019-06-10] MEDS: HYDROcodone/APAP 5 MG/325 MG (LORTAB) TAB PO PRN ×2 (04:21→11:01)
[2019-06-10] MEDS: ENOXAPARIN 40 MG/0.4 ML (LOVENOX) SYR SC SCH (05:37)
[2019-06-10] MEDS: glipiZIDE 5 MG (GLUCOTROL) TAB PO SCH (05:37)
[2019-06-10 06:04] LABS: HEMOGLOBIN 12.4 G/DL (13.3-17.7); RED CELL DISTRIBUTION WIDTH 13.1 % (10.0-14.5); WHITE BLOOD COUNT 9.4 10^3/uL (4.3-11.0)
[2019-06-10 06:23] LABS: BUN/CREATININE RATIO 15; CALCIUM 9.3 MG/DL (8.5-10.1); CARBON DIOXIDE 26 MMOL/L (21-32); CHLORIDE 98 MMOL/L (98-107); GFR ESTIMATED > 60; GLUCOSE 160 MG/DL (70-105); POTASSIUM 4.2 MMOL/L (3.6-5.0); SODIUM 134 MMOL/L (135-145)
[2019-06-10] MEDS: inSUlin ASPART (NovoLOG) 1 UNIT/0.01 ML (CHARGE PER UNIT) SC SCH ×4 (06:38→11:01)
[2019-06-10] MEDS: ASPIRIN 81 MG CHEW (CHILDREN'S ASA) PO SCH (07:49)
[2019-06-10] MEDS: GABAPENTIN 600 MG (NEURONTIN) TAB PO SCH (07:49)
[2019-06-10] MEDS: POLYETHYLENE GLYCOL 17 GM (MIRALAX) PACK PO SCH (07:50)
[2019-06-10] MEDS: SENNA W/DOCUSATE (SENOKOT S) TABLET PO SCH (07:50)
[2019-06-10 08:00] VITALS: BP 116/65
[2019-06-10] MEDS: RT-ADVAIR HFA 115/21 MCG PER PUFF IH SCH (09:47)
[2019-06-10] MEDS ORDERED: BACL10TA PO (10:29)
[2019-06-10] MEDS ORDERED: ACHD5005 PO (10:29)
--- NOTE | 2019-06-10 10:31 | Discharge Summary ---
Diagnosis/Chief Complaint Date of Admission Jun 05, 2019 at 07:34 Date of Discharge Jun 10, 2019 Admission Diagnosis Admission Diagnosis Chronic left lower extremity diabetic wound Discharge Diagnosis Status post uncomplicated left below the knee amputation- discharged to [facility] Diabetes mellitus- ADA diet, home insulin and glipizide and dulaglutide, sliding scale insulin Acute muscle spasms- baclofen started Presumed obstructive sleep apnea- will need outpatient testing, wean supplemental oxygen as tolerated Chief Complaint/HPI Chief Complaint/HPI 54 yo male admitted after left BKA for non-healing diabetic wound. Discharge Summary-Simple/Stand Consultations Discharge Physical Examination Allergies: Coded Allergies: pregabalin (Unverified Allergy, Severe, FEVER, 04/26/15) Vitals & I&Os Vital Sign - Last 12Hours Date Time Temp Pulse Resp B/P (MAP) Pulse Ox O2 Delivery O2 Flow Rate FiO2 06/10/19 09:47 96 Room Air 06/10/19 08:00 97.4 72 20 116/65 (82) 06/09/19 20:18 2.00 Intake and Output 06/10/19 00:00 Intake Total 1100 ml Output Total 2650 ml Balance -1550 ml General Appearance: Alert, No Acute Distress Respiratory: Clear to Auscultation, Normal Air Movement Cardiovascular: Regular Rate, No Murmurs Extremities: Other (bilateral BKA, left wrapped with no drainage on dressing) Neuro: Normal Speech Hospital Course Was the Problem List Reviewed?: Yes See final discharge diagnosis. Labs Laboratory Tests Test 06/08/19 15:56 06/08/19 20:43 06/09/19 05:23 06/09/19 10:50 Range/Units Glucometer 143 H 208 H 133 H 170 H 70-110 MG/DL Test 06/09/19 15:52 06/09/19 21:08 06/10/19 05:08 06/10/19 05:28 Range/Units Glucometer 191 H 210 H 70-110 MG/DL Sodium Level 134 L 135-145 MMOL/L Potassium Level 4.2 3.6-5.0 MMOL/L Chloride Level 98 98-107 MMOL/L Carbon Dioxide Level 26 21-32 MMOL/L Anion Gap 10 5-14 MMOL/L Blood Urea Nitrogen 12 7-18 MG/DL Creatinine 0.80 0.60-1.30 MG/DL Estimat Glomerular Filtration Rate > 60 BUN/Creatinine Ratio 15 Glucose Level 160 H 70-105 MG/DL Calcium Level 9.3 8.5-10.1 MG/DL White Blood Count 9.4 4.3-11.0 10^3/uL Red Blood Count 4.49 4.35-5.85 10^6/uL Hemoglobin 12.4 L 13.3-17.7 G/DL Hematocrit 39 L 40-54 % Mean Corpuscular Volume 87 80-99 FL Mean Corpuscular Hemoglobin 28 25-34 PG Mean Corpuscular Hemoglobin Concent 32 32-36 G/DL Red Cell Distribution Width 13.1 10.0-14.5 % Platelet Count 202 130-400 10^3/uL Mean Platelet Volume 9.0 7.4-10.4 FL Test 06/10/19 06:09 06/10/19 10:59 Range/Units Glucometer 158 H 177 H 70-110 MG/DL Discharge Instructions to patient/family Please see electronic discharge instructions given to patient. Discharge Medications Reviewed and agree with Discharge Medication list on patient's Discharge Instruction sheet Clinical Quality Measures DVT/VTE Risk/Contraindication: Risk Factor Score Per Nursin RFS Level Per Nursing on Admit: 4+=Very High CATY SIEGEL MD Jun 10, 2019 10:31
[2019-06-10 11:00] VITALS: BP 116/65
--- NOTE | 2019-06-10 11:08 | NUR ---
1045 report given [id number] tonicole, sarita rn at this time.
[2019-06-11] MEDS ORDERED: NON-FORMULARY MEDICATION 1 EA EA (Dulaglutide (Trulicity) 0.75 MG) SQ SCH (12:15)
== END 2019-06-10 11:00 | disposition home or self-care (01) | DRG 617 ==
LOC: 4TH 07:34 → SURG 07:35 → 4TH 13:44
PROVIDERS: ADMIT Surgery; ATTEND Surgery
PROC: 3E0T3BZ Introduction of Anesthetic Agent into Peripheral Nerves and Plexi, Percutaneous Approach (ICD-10-PCS; 2019-06-05)
PROC: 0Y6J0Z1 Detachment at Left Lower Leg, High, Open Approach (ICD-10-PCS; principal; 2019-06-05 09:45)
DX: E11.621 Type 2 diabetes mellitus with foot ulcer (principal); Z68.42 Body mass index [BMI] 45.0-49.9, adult; L97.529 Non-pressure chronic ulcer of other part of left foot with unspecified severity; Z89.511 Acquired absence of right leg below knee; J44.9 Chronic obstructive pulmonary disease, unspecified; I10 Essential (primary) hypertension; E11.40 Type 2 diabetes mellitus with diabetic neuropathy, unspecified; E11.51 Type 2 diabetes mellitus with diabetic peripheral angiopathy without gangrene; Z66 Do not resuscitate; K21.9 Gastro-esophageal reflux disease without esophagitis; K44.9 Diaphragmatic hernia without obstruction or gangrene; M19.91 Primary osteoarthritis, unspecified site; E78.00 Pure hypercholesterolemia, unspecified; E78.2 Mixed hyperlipidemia; I25.10 Atherosclerotic heart disease of native coronary artery without angina pectoris; E66.9 Obesity, unspecified; G47.33 Obstructive sleep apnea (adult) (pediatric); M62.838 Other muscle spasm; G89.4 Chronic pain syndrome; F12.90 Cannabis use, unspecified, uncomplicated; Z79.4 Long term (current) use of insulin; Z87.891 Personal history of nicotine dependence
CPT/HCPCS: 36415; 80048; 80053; 82962; 85025; 85027; 94640; 94664; 94760

== ENCOUNTER 2019-06-10 09:50 | Inpatient (IN) | payer MEDICARE ==
[~2019-06-10] VITALS: Ht 193 cm; Wt 167.8 kg
[2019-06-10] MEDS ORDERED: BACL10TA PO (10:29)
[2019-06-10] MEDS ORDERED: ACHD5005 PO (10:29)
--- NOTE | 2019-06-10 11:15 | NUR ---
Kaitlin "Lali Choe admitted to room 228-1, with an admitting diagnosis of Left Below the Knee Amputation, on 06/10/19 from 4th Floor Medical via wheelchair, accompanied by staff.KAITLIN CHOE introduced to surroundings, call light, bed controls, phone, TV, temperature control, lights, meal times, smoking policy, visitor policy, side rail policy, bathrooms and showers. Patient Rights given to patient in the handbook.KAITLIN CHOE verbalizes understanding that [facility] is not responsible for the loss or damage to any personal effects or valuables that are kept in the patients possession during their hospitalization. The following Patient Care Plans were discussed with the patient: Discharge Planning, Impaired mobility. KAITLIN CHOE verbalizes understanding of Interdisciplinary Patient Education. Patient received Patient Rights Booklet, which includes Privacy Act Statement and Data Collection Information Summary.
--- NOTE | 2019-06-10 11:40 | Physical Therapy Evaluation ---
PT Evaluation-General Medical Diagnosis Admission Date Jun 10, 2019 at 11:15 Medical Diagnosis: left BKA Onset Date: Jun 05, 2019 Therapy Diagnosis Therapy Diagnosis: impaired mobility, strength, endurance Height/Weight Height (Feet): 6 Height (Inches): 4.00 Weight (Pounds): 403 Weight (Ounces): 0.0 Referral Physician: Melly Deluna DO Reason for Referral: Evaluation/Treatment Medical History Pertinent Medical History: Arthritis, CAD, COPD, DM, GERD, HTN, Neuropathy, PVD Additional Medical History Past Medical History Surgeries: Amputation, Orthopedic Respiratory: COPD, Sleep Apnea Currently Using CPAP: No (NOT ANY MORE-LOST IN HOUSE FIRE) Currently Using BIPAP: No Cardiac: Chronic Edema/Swelling, Coronary Artery Disease, High Cholesterol, Hypertension, Peripheral Vascular Neurological: Neuropathy Reproductive: No Gastrointestinal: Gastroesophageal Reflux, Hiatal Hernia Musculoskeletal: Amputee, Arthritis, Chronic Back Pain Endocrine: Diabetes, Insulin dep Loss of Vision: Denies Hearing Impairment: Denies History of Blood Disorders: No Adverse Reaction to Blood Quintero: No Reviewed History: Yes Reviewed History: Yes Social History Home: [facility] Current Living Status: Alone Entry Into Home: Ramp Prior/Core FIM Prior Level of Function Therapy Code Descriptions/Definitions Functional [place] Measure: 0=Not Assessed/NA 4=Minimal Assistance 1=Total Assistance 5=Supervision or Setup 2=Maximal Assistance 6=Modified [place] 3=Moderate Assistance 7=Complete [place] Therapy Quality Codes: 6 Independent with activity with or without an assistive device 5 Patient requires set up or clean up by helper. Patient completes activity by themselves 4 Supervision or touching assist (CGA). [place] provide cues , steadying assist 3 The helper provides less than half the effort to complete the activity 2 The helper provides more than half the effort to complete the activity 1 Dependent. The helper does all the effort to complete an activity 7 Patient refused to complete or attempt activity 9 The patient did not perform the activity before the current illness or injury 88 Not attempted due to Medical conditions or safety concerns Functional Abilities and Goals: Independent: Patient completed the activities by him/herself, with or without an assistive device, with no assistance from a helper. Needed Some Help: Patient needed partial assistance from another person to complete activities. Dependent: A helper completed the activities for the patient. Unknown: Not Applicable: Bed Mobility: 6 Transfers (B,C,W/C) (FIM): 6 Gait: 6 Indoor Mobility (Ambulation): Independent Patient states he was ambulating without an assistive device using a prosthetic leg on the right side which had a previous BKA PT Evaluation-Current Subjective Patient in bed pre tx, agrees to PT, patient is going to rehab, has 8/10 pain in right arm and left leg. Pt/Family Goals to be independent at home Objective Patient Orientation: Person, Place, Situation ROM/Strength ROM Lower Extremities WNL except patient doesn't have full knee flexion on the left side due to swelling and pain. Sensory Vision: Functional Hearing: Functional Transfers Therapy Code Descriptions/Definitions Functional [place] Measure: 0=Not Assessed/NA 4=Minimal Assistance 1=Total Assistance 5=Supervision or Setup 2=Maximal Assistance 6=Modified [place] 3=Moderate Assistance 7=Complete [place] Therapy Quality Codes: 6 Independent with activity with or without an assistive device 5 Patient requires set up or clean up by helper. Patient completes activity by themselves 4 Supervision or touching assist (CGA). [place] provide cues , steadying assist 3 The helper provides less than half the effort to complete the activity 2 The helper provides more than half the effort to complete the activity 1 Dependent. The helper does all the effort to complete an activity 7 Patient refused to complete or attempt activity 9 The patient did not perform the activity before the current illness or injury 88 Not attempted due to Medical conditions or safety concerns Transfers (B, C, W/C) (FIM): 4 Scootin Rollin Roll Left to Right (QC): 4 Supine to/from Sit: 5 Sit to/from Stand: 4 bed t/f WC(FIM only if WC use): 4 Sit to Lying (QC): 4 Lying to Sitting/Side of Bed(Q: 4 Sit to Stand (QC): 3 Chair/Mmy-gn-Ciwdx Xfer(QC): 3 Car Transfer (QC): 4 Patient performs bed mobility with SBA, supine <-> sit with SBA, sit <-> stand with min assist from an elevated surface, transfers with min assist using a rolling walker or with SBA using a sliding board, car transfers SBA using a sliding board. Occasional cues for hand placement and positioning. Uses prosthetic leg on the right side, he is able to don it himself. Gait Does the Patient Walk?: No and Walking Goal IS indicated Mode of Locomotion: Wheelchair Anticipated Mode of Locomotion: Both Wheelchair Training Does the Pt Use a Wheelchair?: Yes Wheelchair (FIM): 5 Distance: 150' Wheelchair Level of Assist: 5 Wheel 50 ft with 2 turns (QC): 4 Wheel 150 ft (QC): 4 Type of Wheelchair: Manual Patient can propel a manual wheelchair 150' with SBA (including 50' with at l east 2 turns of 90 degrees). Occasional cues for obstacles. Stairs If not tested on admit;explain Patient is not ambulatory at this time. Balance Sitting Static: Normal Sitting Dynamic: Normal Standing Static: Poor Standing Dynamic: Poor Assessment/Needs Patient has impaired mobility, strength, endurance. He needs min assist to stand and transfer from an elevated surface and from a lower surface he can use a sliding board. Rehab Potential: Fair PT Short Term Goals Short Term Goals Time Frame: Jun 17, 2019 Transfers (B,C,W/C) (FIM): 4 (CGA) Gait (FIM): 1 Gait Distance Comment: 5' Gait Level of Assist: 4 Gait Assistive Device: FWW PT Computer Numerical Control Machinist Goals Detention Goals PT Computer Numerical Control Machinist Goals Time Frame: Jul 01, 2019 Transfers (B,C,W/C) (FIM): 5 Sit to Lying (QC): 6 Lying-Sitting on Side/Bed(QC): 6 Sit to Stand (QC): 5 Rollin Roll Left to Right (QC): 6 Chair/Ece-fi-Zjfxu Xfer(QC): 4 Car Transfer (QC): 4 Gait (FIM): 1 Distance: 10' Walk 10 feet (QC): 4 Walk 10ft-Uneven Surface(QC): 4 Gait Level of Assist: 4 Gait Assistive Device: FWW Wheelchair Level of Assist: 6 Wheel 50 feet with 2 turns (QC: 6 PT Plan Problem List Problem List: Activity Tolerance, Functional Strength, Safety, Balance, Gait, Transfer, Bed Mobility, ROM Treatment/Plan Treatment Plan: Continue Plan of Care Treatment Plan: Bed Mobility, Concurrent Therapy, Education, Functional Activity Fabián, Functional Strength, Group Therapy, Gait, Safety, Therapeutic Exercise, Transfers Treatment Duration: Jul 01, 2019 Frequency: At least 5 of 7 days/Wk (IRF) Estimated Hrs Per Day: 1.5 hours per day Patient and/or Family Agrees t: Yes Safety Risks/Education Patient Education: Transfer Techniques, Correct Positioning, Safety Issues Teaching Recipient: Patient Teaching Methods: Demonstration, Discussion Response to Teaching: Reinforcement Needed Discharge Recommendations Plan Patient will perform bed mobility and transfer training, balance and endurance training, functional strengthening, gait training, and education, to improve functional mobility and independence at home. Therapy D/C Recommendations: Home w/ Family Support Time/GCodes Time In: 1100 Time Out: 1130 Total Billed Treatment Time: 30 Total Billed Treatment 1 visit JOVANY 30' SAMMIE GUERRIER PT Jun 10, 2019 11:40
[2019-06-10 12:29] VITALS: BP 123/84
--- NOTE | 2019-06-10 12:39 | NUR ---
REVIEWED MED REC IT WAS REPORTED UPON ADMISSION. NOTE THE FOLLOWING CHANGES WERE MADE WHEN THE PATIENT DISCHARGED TO REHAB THAT ARE NOT CURRENTLY REFLECTED ON THE HOME MED REC: START TAKING: BACLOFEN 5MG TID PRN HYDROCODONE 5-325MG Q4H PRN
--- NOTE | 2019-06-10 12:58 | Occupational Therapy Eval ---
OT Evaluation-General/PLF Medical Diagnosis Admission Date Jun 10, 2019 at 11:15 Medical Diagnosis: left BKA Onset Date: Jun 05, 2019 Therapy Diagnosis Therapy Diagnosis: Impaired self care skills Height/Weight Height (Feet): 6 Height (Inches): 4.00 Weight (Pounds): 405 Weight (Ounces): 0.0 Precautions Precautions/Isolations: Contact Isolation Referral Physician: Melly Deluna DO Medical History Pertinent Medical History: Arthritis, CAD, COPD, DM, GERD, HTN, Neuropathy, PVD Additional Medical History chronic edema, right AKA, high cholesterol, hiatal hernia, chronic back pain. Current History pt s/p left AKA Social History Home: Multilevel (washer/dryer in the basement) Current Living Status: Alone Entry Into Home: Ramp ADL-Prior Level of Function Therapy Code Descriptions/Definitions Functional [place] Measure: 0=Not Assessed/NA 4=Minimal Assistance 1=Total Assistance 5=Supervision or Setup 2=Maximal Assistance 6=Modified [place] 3=Moderate Assistance 7=Complete [place] Therapy Quality Codes: 6 Independent with activity with or without an assistive device 5 Patient requires set up or clean up by helper. Patient completes activity by themselves 4 Supervision or touching assist (CGA). [place] provide cues , steadying assist 3 The helper provides less than half the effort to complete the activity 2 The helper provides more than half the effort to complete the activity 1 Dependent. The helper does all the effort to complete an activity 7 Patient refused to complete or attempt activity 9 The patient did not perform the activity before the current illness or injury 88 Not attempted due to Medical conditions or safety concerns Functional Abilities and Goals: Independent: Patient completed the activities by him/herself, with or without an assistive device, with no assistance from a helper. Needed Some Help: Patient needed partial assistance from another person to complete activities. Dependent: A helper completed the activities for the patient. Unknown: Not Applicable: ADL PLOF Comments Pt reports being independent with self care. Has right LE prosthesis. Pt states he was using w/c and walking prior to admission. Daughter assisted with laundry secondary to washer/dryer being in the basement. Drive Self: Yes OT Current Status Subjective Pt agreeable to therapy. Reports 7/10 pain in left LE. Mental Status/Objective Patient Orientation: Person, Place, Situation Current Glasses/Contacts: Yes (reading) Hearing Aids: No Dentures/Partials: No Hand Dominance: Right Upper Extremity ROM Decreased right shoulder ROM. Pt states he has bone spurs and a rotator cuff injury. Remainder grossly WFL Upper Extremity Coordination Intact. Upper Extremity Sensation Pt reports chronic numbness in hands ADL-Treatment ADL-Current Pt participated in UE assessment while seated in w/c. Pt able to doff/don right prosthesis without assist. Pt performed transfer w/c <-> EOB with CGA for safety using slide board. Will assess ADLs in future session. Pt sitting in w/c with needs met after session. Education OT Patient Education: Rehab process Teaching Recipient: Patient Teaching Methods: Discussion Response to Teaching: Verbalize Understanding OT Short Term Goals Short Term Goals Time Frame: Jun 17, 2019 Transfers (B,C,W/C) (FIM): 4 (CGA) 1=Demonstrate adherence to instructed precautions during ADL tasks. 2=Patient will verbalize/demonstrate understanding of assistive devices/modifications for ADL. 3=Patient will improve strength/tolerance for activity to enable patient to perform ADL's. OT Youth Corrections Officer Goals Shelter Goals Time Frame: Jul 01, 2019 Eating (FIM): 7 Eating (QC): 7 Groomin Oral Hygiene (QC): 6 Bathing(FIM): 6 Shower/Bathe Self (QC): 6 Upper Body Dressing(FIM): 6 Upper Body Dressing (QC): 6 Lower Body Dressing(FIM): 6 Lower Body Dressing (QC): 6 Toileting(FIM): 6 Toileting Hygiene (QC): 6 Toilet/Commode Transfer(FIM): 6 Toilet/Commode Transfer (QC): 6 Shower Transfer(FIM): 6 Additional Goals: 1-Demonstrate ADL Tasks, 2-Verbalize Understanding, 3- ImproveStrength/Fabián 1=Demonstrate adherence to instructed precautions during ADL tasks. 2=Patient will verbalize/demonstrate understanding of assistive devices/modifications for ADL. 3=Patient will improve strength/tolerance for activity to enable patient to perform ADL's. OT Education/Plan Problem List/Assessment Assessment: Decreased UE Strength, Dependent Transfers, Impaired I ADL's, Impaired Self-Care Skills Pt s/p left BKA with decreased mobility and ADL functioning. Pt to benefit from skilled OT intervention for ADL training, transfers, strengthening,and home safety education to increase level of independence and allow safe discharge home. Discharge Recommendations Plan/Recommendations: Continue POC Treatment Plan/Plan of Care Patient would benefit from OT for education, treatment and training to promote independence in ADL's, mobility, safety and/or upper extremity function for ADL's. Plan of Care: ADL Retraining, Functional Mobility, Group Exercise/Act as Ind, UE Funct Exercise/Act Treatment Duration: Jul 01, 2019 Frequency: At least 5 of 7 days/Wk (IRF) Estimated Hrs Per Day: 1.5 hours per day Rehab Potential: Fair Time/GCodes Start Time: 11:30 Stop Time: 12:00 Total Time Billed (hr/min): 30 Billed Treatment Time 1 visit, HENRY(30minutes) NIKKI TAFOYA OT Jun 10, 2019 12:58
[2019-06-10] MEDS: POLYETHYLENE GLYCOL 17 GM (MIRALAX) PACK PO SCH ×2 (13:00→20:49)
[2019-06-10] MEDS: LACTULOSE SYRUP 10GM/15ML (ENULOSE) 30ML UDC PO SCH ×2 (13:00→20:49)
--- NOTE | 2019-06-10 13:37 | PM&R H&P / Post Admit Assess ---
History of Present Illness HPI/Chief Complaint Per Med-Surg consultation 06/06/19: Chief complaint: Status post uncomplicated left below the knee amputation History present illness: This is a 54-year-old white male clinic patient of [facility], [facility] with a past medical history of morbid obesity in addition to diabetes who presents following an uncomplicated left below the knee amputation. 5 other partial amputations had been performed that resulted in remaining nonhealing ulcerations so the decision was made to complete the amputation in order to facilitate healing and placement of a prosthesis. At this current time patient reports muscle spasms so I did order baclofen. He use to have home oxygen but he stopped wearing it. He appears to have high risk for sleep apnea. I have restarted all of his home medications and will initiate PT and OT orders and place inpatient rehabilitation eval. He quit smoking 5 weeks ago with the help of Chantix. Chief complaint: Left below the knee amputation in need of rehab for help with transfers to and from wheelchair and use of prosthesis History of present illness: This is a 54-year-old white male known to me from consultation last week requested by Dr. Worley following a left below the knee amputation by Dr. Worley on 06/06/2019. He had an uneventful week pain was well controlled with narcotic pain medication in addition to baclofen. Bowel regimen maintained but slow transit constipation on a chronic basis precluded anything of results on that organ system so will work aggressively during inpatient rehab course for bowel evacuation. He does have a history of ESBL UTI in July 2018. Blood sugars have been well controlled on his home insulin regimen and has been maintained on Lovenox for DVT prophylaxis. Labs have been monitored closely and to note he definitely needs intensive therapy and techniques from physical therapy because he has a previous right below the knee amputation in the remote past. At this current time patient reports that his pain is well controlled there is a question of some blister and drainage on his stump so will evaluate that with general surgery consultation. I checked his meds and labs and restored all orders and will monitor patient closely due to his significant comorbidities. His prior level of functioning was the use of a right leg prosthesis and now he has bilateral below the knee amputations so will need wheelchair transfer work along with ADL independent techniques. Source: patient Exam Limitations: no limitations Date Seen 06/10/19 Time Seen by a Provider: 14:00 Attending Physician Melly Santana DO [facility] Referring Physician Date of Admission Jun 10, 2019 at 11:15 Home Medications & Allergies Home Medications Reviewed patient Home Medication Reconciliation performed by pharmacy medication reconciliations fire control technician b and/or nursing. Patients Allergies have been reviewed. Allergies Allergies Coded Allergies pregabalin (Unverified Allergy, Severe, FEVER, 04/26/15) Past Mvymbct-Ycvjln-Kvktlc Hx Past Med/Social Hx: Reviewed Nursing Past Med/Soc Hx, Reviewed and Corrections made Patient Social History Marrital Status: single Employed/Student: unemployed Drug of Choice: E.D. REPORT: HX OF METH, LSD,ECSTASY,CRACK COCAINE, MUSHROOMS Smoking Status: Former Smoker Type Used: Cigarettes 2nd Hand Smoke Exposure: Yes Recent Foreign Travel: No Contact w/other who traveled: No Recent Hopitalizations: No Recent Infectious Disease Expo: No Immunizations Up To Date Tetanus Booster (TDap): Unknown Pediatric: Yes Date of Pneumonia Vaccine: Sep 19, 2011 Date of Influenza Vaccine: May 28, 2018 Seasonal Allergies Seasonal Allergies: Yes Past Medical History Surgeries: Amputation, Orthopedic Respiratory: COPD, Sleep Apnea Currently Using CPAP: No (NOT ANY MORE-LOST IN HOUSE FIRE) Currently Using BIPAP: No Cardiac: Chronic Edema/Swelling, Coronary Artery Disease, High Cholesterol, Hypertension, Peripheral Vascular Neurological: Neuropathy Reproductive: No Gastrointestinal: Gastroesophageal Reflux, Chronic Constipation, Hiatal Hernia Musculoskeletal: Amputee, Arthritis, Chronic Back Pain Endocrine: Diabetes, Insulin dep Loss of Vision: Denies Hearing Impairment: Denies History of Blood Disorders: No Adverse Reaction to Blood Quintero: No Family History Cardiovascular disease 19 FATHER ( heart attack) G8 BROTHER Diabetes mellitus 19 MOTHER ( complications diabetes) Psychosocial problem G8 BROTHER (in snf) Heart Disease, Diabetes Review of Systems Constitutional: see HPI, malaise, weakness EENTM: no symptoms reported Respiratory: no symptoms reported Cardiovascular: no symptoms reported Gastrointestinal: constipation Genitourinary: no symptoms reported Musculoskeletal: joint pain Skin: see HPI Psychiatric/Neurological: No Symptoms Reported All Other Systems Reviewed Negative Unless Noted: Yes Physical Exam Exam Vital Signs Vital Signs Date Time Temp Pulse Resp B/P (MAP) Pulse Ox O2 Delivery O2 Flow Rate FiO2 06/10/19 18:00 Room Air 06/10/19 15:24 98.4 91 14 124/67 (86) 92 06/10/19 12:29 2.00 Capillary Refill : General Appearance: No Apparent Distress, WD/WN, Chronically ill, Obese HEENT: PERRL/EOMI, Normal ENT Inspection, Pharynx Normal, Moist Mucous Membranes Neck: Full Range of Motion, Normal Inspection, Non Tender, Supple Respiratory: Chest Non Tender, Lungs Clear, Normal Breath Sounds, No Accessory Muscle Use, No Respiratory Distress, Decreased Breath Sounds Cardiovascular: Regular Rate, Rhythm, No Edema, No Gallop, No JVD, No Murmur Gastrointestinal: Normal Bowel Sounds, No Organomegaly, No Pulsatile Mass, Non Tender, Soft Back: Normal Inspection, No CVA Tenderness, No Vertebral Tenderness Extremity: Normal Capillary Refill, Normal Inspection, Normal Range of Motion (bilateral amputations) Neurologic/Psychiatric: Alert, Oriented x3, No Motor/Sensory Deficits, Normal Mood/Affect, product marketing engineer II-XII Norm as Tested, Motor Weakness (decreased ROM thighs due to BKA's) Skin: Normal Color, Warm/Dry Lymphatic: No Adenopathy Results Results/Procedures Labs Patient resulted labs reviewed. Assessment/Plan Assessment and Plan Assess & Plan/Chief Complaint Assessment: Status post uncomplicated left below the knee amputation POD # 4 Hypertension Obesity Diabetes mellitus Acute muscle spasms ordered baclofen Presumed obstructive sleep apnea Recent smoking cessation with the help of Chantix Plan: Restarted all home meds PT and OT Rehabilitation consult Continue smoking cessation Pain control Baclofen for muscle spasms Dr Ballesteros to assess redness on left stump Monitor lung closely (1) Amputation of left lower extremity below knee (2) Marijuana use (3) Tobacco use (4) Peripheral vascular disease (5) IDDM (insulin dependent diabetes mellitus) (6) Chronic pain (7) Hypertension (8) Hyperlipidemia (9) Tobacco abuse (10) BMI 40.0-44.9, adult (11) DVT prophylaxis (12) Debility Post Admission Physician Asses Date seen by provider: Jun 10, 2019 Time seen by provider: 14:00 Admisison Dx: (1) Amputation of left lower extremity below knee The preadmission screen agrees with the post admission assessment that the patient is a good candidate for inpatient rehabilitation. The patient will have a comprehensive program of inpatient rehabilitation with a goal of maximizing level of functional independence prior to discharge home with family. The patient will have PT/OT ninety minutes per day, each discipline, five days a week for gait, strengthening, conditioning, balance, ADLs, any patient/family/caregiver training as necessary. Speech therapy to do cognitive assessment and treat as indicated. Rehabilitation nursing to assist with bowel, bladder, skin, wound care, medication administration, pain management. Spotlight Operator to assist with discharge planning, community reentry. SCD's for DVT prophylaxis. He appears to be well motivated to participate in three hours of therapy a day. He should be able to tolerate three hours of therapy a day from a medical standpoint. He should benefit from the three hours of therapy a day. He has a reasonable discharge plan, reasonable discharge rehabilitation goals and a supportive family. He has various comorbidities that need to be closely monitored with medications and treatments adjusted on a daily basis as needed. These include: see list Barriers to discharge for this patient who had been independent prior to this are for him to be modified independent to supervision for ADLs and mobility skills prior to discharge home with family, so as to lessen the burden of the caregivers. Risks for this patient include: 1. Fall 2. Fracture 3. DVT 4. Pulmonary embolism 5. Wound infection 6. Skin breakdown 7. Contractures 8. Poorly controlled pain 9. Urinary retention 10. UTI 11. Respiratory infection 12. Aspiration Estimated Length of Stay: 10 days Prognosis: Rehab prognosis appears good for goal of discharge home with family modified independent to supervision for ADLs and mobility skills. MELLY SANTANA DO Jun 10, 2019 13:37
[2019-06-10] MEDS ORDERED: ONDANSETRON 4 MG/2 ML (SDV) Z0FRAN IVP PRN (13:45)
[2019-06-10] MEDS ORDERED: RT-ALBUTEROL SULF 2.5 MG/3 ML PRE-MIX VIAL INH PRN (13:45)
[2019-06-10] MEDS ORDERED: ALPRAZolam 0.25 MG (XANAX) TAB PO PRN (13:45)
[2019-06-10] MEDS ORDERED: ENOXAPARIN 40 MG/0.4 ML (LOVENOX) SYR SC SCH (13:45)
[2019-06-10] MEDS ORDERED: ACETAMINOPHEN 500 MG TAB (TYLENOL) PO PRN (13:45)
[2019-06-10] MEDS ORDERED: CALCIUM CARBONATE 500 MG (TUMS) TAB.CHEW PO PRN (13:45)
[2019-06-10] MEDS ORDERED: morphine INJ 4 MG/ML 1 ML (VIAL/SYRINGE) IVP PRN (13:45)
[2019-06-10] MEDS ORDERED: diphenhydrAMINE 25 MG TAB (BENADRYL) PO PRN (13:45)
[2019-06-10] MEDS ORDERED: IBUPROFEN 800 MG (MOTRIN) TAB PO PRN (13:45)
[2019-06-10] MEDS ORDERED: BISACODYL 10 MG SUPP (DULCOLAX) PR PRN (13:45)
--- NOTE | 2019-06-10 14:48 | Occupational Ther Daily Note ---
OT Current Status-Daily Note Subjective Pt sitting in w/c, agrees to treatment. Mental Status/Objective Therapy Code Descriptions/Definitions Functional [place] Measure: 0=Not Assessed/NA 4=Minimal Assistance 1=Total Assistance 5=Supervision or Setup 2=Maximal Assistance 6=Modified [place] 3=Moderate Assistance 7=Complete [place] ADL-Treatment Pt requests shower today. Transfer w/c <-> shower bench with supervision using grab bars for safety. Doff clothing with SBA. Pt completed seated bathing using hand held shower. Pt able to wash all areas with SBA. Weight shifts left and right to wash buttocks. Uses grab bar for sitting balance during weight shifting. Don pullover shirt with SBA. Don right LE prosthesis with set up. Pt able to thread LE into shorts. Mod assist to complete pant hike. Grooming tasks completed seated at sink. Pt brushed teeth and combed hair with set up. Occasional breaks during ADL tasks. Therapy Code Descriptions/Definitions Functional [place] Measure: 0=Not Assessed/NA 4=Minimal Assistance 1=Total Assistance 5=Supervision or Setup 2=Maximal Assistance 6=Modified [place] 3=Moderate Assistance 7=Complete [place] Therapy Quality Codes: 6 Independent with activity with or without an assistive device 5 Patient requires set up or clean up by helper. Patient completes activity by themselves 4 Supervision or touching assist (CGA). [place] provide cues , steadying assist 3 The helper provides less than half the effort to complete the activity 2 The helper provides more than half the effort to complete the activity 1 Dependent. The helper does all the effort to complete an activity 7 Patient refused to complete or attempt activity 9 The patient did not perform the activity before the current illness or injury 88 Not attempted due to Medical conditions or safety concerns Eating (FIM): 7 Eating (QC): 6 Grooming (FIM): 5 Oral Hygiene (QC): 5 Bathing (FIM): 5 Shower/Bathe Self (QC): 4 Upper Body (FIM): 5 Upper Body Dressing (QC): 5 Lower Body Dressing (FIM): 3 Lower Body Dressing (QC): 3 On/Off Footwear (QC): 88 (bilateral BKA) Shower Transfer(FIM): 5 Other Treatment Pt performed w/c mobility to therapy gym without assist. Pt completed bilateral UE exercises to increase overall strength needed for ADLs and transfers. Pt performed left UE shoulder flexion and abduction. Right shoulder exercises not completed secondary to discomfort from previous injury. Bilateral biceps curls and triceps extension exercises. All exercises completed with moderate resistance (red) theraband x10 reps, 2 sets. Rest breaks between exercises. Pt sitting in w/c. Care transferred to PT. OT Short Term Goals Short Term Goals Time Frame: Jun 17, 2019 Transfers (B,C,W/C) (FIM): 4 (CGA) 1=Demonstrate adherence to instructed precautions during ADL tasks. 2=Patient will verbalize/demonstrate understanding of assistive devices/modifications for ADL. 3=Patient will improve strength/tolerance for activity to enable patient to perform ADL's. OT Intermediate Goals Intermediate Goals Time Frame: Jul 01, 2019 Eating (FIM): 7 Eating (QC): 7 Groomin Oral Hygiene (QC): 6 Bathing(FIM): 6 Shower/Bathe Self (QC): 6 Upper Body Dressing(FIM): 6 Upper Body Dressing (QC): 6 Lower Body Dressing(FIM): 6 Lower Body Dressing (QC): 6 Toileting(FIM): 6 Toileting Hygiene (QC): 6 Toilet/Commode Transfer(FIM): 6 Toilet/Commode Transfer (QC): 6 Shower Transfer(FIM): 6 Additional Goals: 1-Demonstrate ADL Tasks, 2-Verbalize Understanding, 3- ImproveStrength/Fabián 1=Demonstrate adherence to instructed precautions during ADL tasks. 2=Patient will verbalize/demonstrate understanding of assistive devices/modifications for ADL. 3=Patient will improve strength/tolerance for activity to enable patient to perform ADL's. OT Education/Plan Discharge Recommendations Plan/Recommendations: Continue POC Treatment Plan/Plan of Care Treatment,Training & Education: Yes Patient would benefit from OT for education, treatment and training to promote independence in ADL's, mobility, safety and/or upper extremity function for ADL's. Plan of Care: ADL Retraining, Functional Mobility, Group Exercise/Act as Ind, UE Funct Exercise/Act Treatment Duration: Jul 01, 2019 Frequency: At least 5 of 7 days/Wk (IRF) Estimated Hrs Per Day: 1.5 hours per day Rehab Potential: Fair Time/GCodes Start Time: 13:05 Stop Time: 14:05 Total Time Billed (hr/min): 60 Billed Treatment Time 1 visit, ADLx3(45minutes), EX(15minutes) NIKKI TAFOYA OT Jun 10, 2019 14:48
[2019-06-10] MEDS: GABAPENTIN 600 MG (NEURONTIN) TAB PO SCH ×2 (14:51→20:40)
[2019-06-10] MEDS: SENNA W/DOCUSATE (SENOKOT S) TABLET PO SCH ×2 (14:52→20:50)
--- NOTE | 2019-06-10 15:06 | Physical Therapy Daily Note ---
PT Daily Note-Current Subjective Patient in therapy gym pre tx, just got done with OT, has 8-9/10 pain in right arm and left leg, nurse notified and she got him pain meds. Appearance Patient in bed post tx with nurse call, phone, tray, all needs met. Mental Status Patient Orientation: Normal For Age Transfers Therapy Code Descriptions/Definitions Functional [place] Measure: 0=Not Assessed/NA 4=Minimal Assistance 1=Total Assistance 5=Supervision or Setup 2=Maximal Assistance 6=Modified [place] 3=Moderate Assistance 7=Complete [place] Therapy Quality Codes: 6 Independent with activity with or without an assistive device 5 Patient requires set up or clean up by helper. Patient completes activity by themselves 4 Supervision or touching assist (CGA). [place] provide cues , steadying assist 3 The helper provides less than half the effort to complete the activity 2 The helper provides more than half the effort to complete the activity 1 Dependent. The helper does all the effort to complete an activity 7 Patient refused to complete or attempt activity 9 The patient did not perform the activity before the current illness or injury 88 Not attempted due to Medical conditions or safety concerns Transfers (B, C, W/C) (FIM): 3 Scootin Rollin Supine to/from Sit: 5 Sit to/from Stand: 3 Bed to/from Chair: 4 Patient practiced standing in the parallel bars and was able to stand for about 3 min before needing to sit, practiced bed mobility and rolling and scooting. Wheelchair Training Does the Pt Use a Wheelchair?: Yes Wheelchair (FIM): 5 Distance: 150'x2 Type of Wheelchair: Manual Exercises Supine Ex: Quad Set, Glut sets, Heel Slides (just SLR and then knee flex/ext), Straight leg raise, Hip abd/add Supine Reps: 15 LAQ alternating for 5 min, prone 5 min hip stretch NuStep Minutes: 10 NuStep Workload: 6 Treatments standing, bed mobility and transfers, LE exercise, stretching Assessment Current Status: Fair Progress Patient has a hard time transferring to the left side PT Short Term Goals Short Term Goals Time Frame: Jun 17, 2019 Transfers (B,C,W/C) (FIM): 4 (CGA) Gait (FIM): 1 Gait Distance Comment: 5' Gait Level of Assist: 4 Gait Assistive Device: FWW Wheelchair Distance: 150' PT Wind Field Manager Goals Usp Goals PT Wind Field Manager Goals Time Frame: Jul 01, 2019 Transfers (B,C,W/C) (FIM): 5 Sit to Lying (QC): 6 Lying-Sitting on Side/Bed(QC): 6 Sit to Stand (QC): 5 Rollin Roll Left to Right (QC): 6 Chair/Kbk-kw-Smjhc Xfer(QC): 4 Car Transfer (QC): 4 Gait (FIM): 1 Distance: 10' Walk 10 feet (QC): 4 Walk 10ft-Uneven Surface(QC): 4 Gait Level of Assist: 4 Gait Assistive Device: FWW Wheelchair Level of Assist: 6 Wheel 50 feet with 2 turns (QC: 6 PT Plan Problem List Problem List: Activity Tolerance, Functional Strength, Safety, Balance, Gait, Transfer, Bed Mobility, ROM Treatment/Plan Treatment Plan: Continue Plan of Care Treatment Plan: Bed Mobility, Concurrent Therapy, Education, Functional Activity Fabián, Functional Strength, Group Therapy, Gait, Safety, Therapeutic Exercise, Transfers Treatment Duration: Jul 01, 2019 Frequency: At least 5 of 7 days/Wk (IRF) Estimated Hrs Per Day: 1.5 hours per day Patient and/or Family Agrees t: Yes Safety Risks/Education Patient Education: Transfer Techniques, Correct Positioning, Safety Issues Teaching Recipient: Patient Teaching Methods: Demonstration, Discussion Response to Teaching: Reinforcement Needed Time/GCodes Time In: 1405 Time Out: 1505 Total Billed Treatment Time: 60 Total Billed Treatment 1 visit EX 30' WCH 10' FA 20' SAMMIE GUERRIER PT Jun 10, 2019 15:06
[2019-06-10 15:24] VITALS: BP 124/67
[2019-06-10] MEDS: inSUlin ASPART (NovoLOG) 1 UNIT/0.01 ML (CHARGE PER UNIT) SC SCH (17:05)
[2019-06-10] MEDS: ENOXAPARIN 40 MG/0.4 ML (LOVENOX) SYR SC SCH (17:07)
[2019-06-10] MEDS ORDERED: RT-ADVAIR HFA 115/21 MCG PER PUFF IH SCH (20:00)
[2019-06-10] MEDS: ATORVASTATIN 40 MG (LIPITOR) TABLET PO SCH (20:39)
[2019-06-10] MEDS: HYDROcodone/APAP 5 MG/325 MG (LORTAB) TAB PO PRN (20:39)
[2019-06-10] MEDS: PANTOPRAZOLE 40 MG (PROTONIX) TAB PO SCH (20:39)
[2019-06-10] MEDS: BACLOFEN 10 MG (LIORESAL) TAB PO PRN (20:41)
[2019-06-10] MEDS: DOCUSATE SODIUM 100 MG (COLACE) CAP PO SCH (20:49)
[2019-06-10] MEDS ORDERED: NON-FORMULARY MEDICATION 1 EA EA (Varenicline Tartrate (Chantix) 1 MG) PO SCH (21:00)
[2019-06-10] MEDS ORDERED: SENNA W/DOCUSATE (SENOKOT S) TABLET PO SCH (21:00)
[2019-06-10] MEDS ORDERED: POLYETHYLENE GLYCOL 17 GM (MIRALAX) PACK PO SCH (21:00)
[2019-06-11] MEDS: HYDROcodone/APAP 5 MG/325 MG (LORTAB) TAB PO PRN ×3 (05:28→17:30)
[2019-06-11] MEDS: glipiZIDE 5 MG (GLUCOTROL) TAB PO SCH (05:28)
[2019-06-11] MEDS: ENOXAPARIN 40 MG/0.4 ML (LOVENOX) SYR SC SCH ×2 (05:28→17:22)
[2019-06-11 06:00] VITALS: BP 128/77
[2019-06-11 06:00] LABS: BASOPHILS % (AUTO) 0 % (0-10); EOSINOPHILS # (AUTO) 0.3 10^3/uL (0.0-0.3); EOSINOPHILS % (AUTO) 3 % (0-10); HEMATOCRIT 40 % (40-54); HEMOGLOBIN 12.6 G/DL (13.3-17.7); LYMPHOCYTES # (AUTO) 2.3 X 10^3 (1.0-4.0); LYMPHOCYTES % (AUTO) 22 % (12-44); MEAN CORPUSCULAR HEMOGLOBIN 28 PG (25-34); MEAN CORPUSCULAR HGB CONC 32 G/DL (32-36); MEAN CORPUSCULAR VOLUME 87 FL (80-99); MEAN PLATELET VOLUME 8.9 FL (7.4-10.4); MONOCYTES # (AUTO) 1.2 X 10^3 (0.0-1.0); MONOCYTES % (AUTO) 11 % (0-12); NEUTROPHILS % (AUTO) 65 % (42-75); PLATELET COUNT 204 10^3/uL (130-400); RED CELL DISTRIBUTION WIDTH 13.3 % (10.0-14.5); WHITE BLOOD COUNT 10.8 10^3/uL (4.3-11.0)
[2019-06-11 06:35] LABS: ALANINE AMINOTRANSFERASE 22 U/L (0-55); ALBUMIN 3.3 GM/DL (3.2-4.5); ALKALINE PHOSPHATASE 139 U/L (40-136); BILIRUBIN,TOTAL 0.5 MG/DL (0.1-1.0); BUN/CREATININE RATIO 19; CALCIUM 9.7 MG/DL (8.5-10.1); CARBON DIOXIDE 29 MMOL/L (21-32); CHLORIDE 97 MMOL/L (98-107); CREATININE SERUM 0.83 MG/DL (0.60-1.30); GFR ESTIMATED > 60; GLUCOSE 167 MG/DL (70-105); POTASSIUM 4.6 MMOL/L (3.6-5.0); SODIUM 136 MMOL/L (135-145); TOTAL PROTEIN 7.6 GM/DL (6.4-8.2)
[2019-06-11] MEDS: inSUlin ASPART (NovoLOG) 1 UNIT/0.01 ML (CHARGE PER UNIT) SC SCH ×3 (06:55→17:21)
--- NOTE | 2019-06-11 08:53 | PM&R Progress Note ---
Subjective HPI/CC On Admission Date Seen by Provider: Jun 11, 2019 Time Seen by Provider: 08:30 Per Med-Surg consultation 06/06/19: Chief complaint: Status post uncomplicated left below the knee amputation History present illness: This is a 54-year-old white male clinic patient of [facility] with a past medical history of morbid obesity in addition to diabetes who presents following an uncomplicated left below the knee amputation. 5 other partial amputations had been performed that resulted in remaining nonhealing ulcerations so the decision was made to complete the amputation in order to facilitate healing and placement of a prosthesis. At this current time patient reports muscle spasms so I did order baclofen. He use to have home oxygen but he stopped wearing it. He appears to have high risk for sleep apnea. I have restarted all of his home medications and will initiate PT and OT orders and place inpatient rehabilitation eval. He quit smoking 5 weeks ago with the help of Chantix. Chief complaint: Left below the knee amputation in need of rehab for help with transfers to and from wheelchair and use of prosthesis History of present illness: This is a 54-year-old white male known to me from consultation last week requested by Dr. Worley following a left below the knee amputation by Dr. Worley on 06/06/2019. He had an uneventful week pain was well controlled with narcotic pain medication in addition to baclofen. Bowel regimen maintained but slow transit constipation on a chronic basis precluded anything of results on that organ system so will work aggressively during inpatient rehab course for bowel evacuation. He does have a history of ESBL UTI in July 2018. Blood sugars have been well controlled on his home insulin regimen and has been maintained on Lovenox for DVT prophylaxis. Labs have been monitored closely and to note he definitely needs intensive therapy and techniques from physical therapy because he has a previous right below the knee amputation in the remote past. At this current time patient reports that his pain is well controlled there is a question of some blister and drainage on his stump so will evaluate that with general surgery consultation. I checked his meds and labs and restored all orders and will monitor patient closely due to his significant comorbidities. His prior level of functioning was the use of a right leg prosthesis and now he has bilateral below the knee amputations so will need wheelchair transfer work along with ADL independent techniques. Subjective/Events-last exam Pt doing very well will assess the blisters on his stoma No fever but he will see him today Wound care saw him and placed some Son to help with the inflammation BM was last on 06/09 so will monitor that closely No antibiotic is required Baclofen is on board for muscle spasms He is moderate independent in his wheel chair Stand by assist in his transfers Speech therapy assess him to have 28/30 slum score He dos reside alone but has family members that can check on him Review of Systems General: Fatigue Pulmonary: Dyspnea Musculoskeletal: leg pain Objective Exam Vital Signs Vital Signs Date Time Temp Pulse Resp B/P (MAP) Pulse Ox O2 Delivery O2 Flow Rate FiO2 06/11/19 20:55 Nasal Cannula 2.00 06/11/19 19:27 92 06/11/19 18:50 99.8 91 18 128/71 (90) Capillary Refill : General Appearance: No Apparent Distress, WD/WN, Chronically ill, Obese HEENT: PERRL/EOMI, Normal ENT Inspection, Pharynx Normal, Moist Mucous Membranes Neck: Full Range of Motion, Normal Inspection, Non Tender, Supple Respiratory: Chest Non Tender, Lungs Clear, Normal Breath Sounds, No Accessory Muscle Use, No Respiratory Distress, Decreased Breath Sounds Cardiovascular: Regular Rate, Rhythm, No Edema, No Gallop, No JVD, No Murmur Gastrointestinal: Normal Bowel Sounds, No Organomegaly, No Pulsatile Mass, Non Tender, Soft Back: Normal Inspection, No CVA Tenderness, No Vertebral Tenderness Extremity: Normal Capillary Refill, Normal Inspection, Normal Range of Motion (bilateral amputations) Neurologic/Psychiatric: Alert, Oriented x3, No Motor/Sensory Deficits, Normal 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 FIM Transfers Therapy Code Descriptions/Definitions Functional [place] Measure: 0=Not Assessed/NA 4=Minimal Assistance 1=Total Assistance 5=Supervision or Setup 2=Maximal Assistance 6=Modified [place] 3=Moderate Assistance 7=Complete [place] Therapy Quality Codes: 6 Independent with activity with or without an assistive device 5 Patient requires set up or clean up by helper. Patient completes activity by themselves 4 Supervision or touching assist (CGA). [place] provide cues , steadying assist 3 The helper provides less than half the effort to complete the activity 2 The helper provides more than half the effort to complete the activity 1 Dependent. The helper does all the effort to complete an activity 7 Patient refused to complete or attempt activity 9 The patient did not perform the activity before the current illness or injury 88 Not attempted due to Medical conditions or safety concerns Transfers (B, C, W/C) (FIM): 3 Scootin Rollin Roll Left to Right (QC): 4 Supine to/from Sit: 5 Sit to/from Stand: 3 Sit to Lying (QC): 4 Sit to Stand (QC): 3 Chair/Kdo-fo-Ygjap Xfer(QC): 3 Bed to/from Chair: 4 Car Transfer (QC): 4 Gait Training Does the Patient Walk?: No and Walking Goal IS indicated Wheelchair Training Does the Pt Use a Wheelchair?: Yes Wheelchair (FIM): 5 Distance: 150'x2 Wheelchair Level of Assist: 5 Wheel 50 ft with 2 turns (QC): 4 Wheel 150 ft (QC): 4 Type of Wheelchair: Manual ADL-Treatment Feedin Eating (QC): 6 Groomin Oral Hygiene (QC): 5 Bathin Shower/Bathe Self (QC): 4 Upper Extremity Dressin Upper Body Dressing (QC): 5 Lower Extremity Dressin Lower Body Dressing (QC): 3 On/Off Footwear (QC): 88 (bilateral BKA) Shower: 5 Assessment/Plan Assessment and Plan Assess & Plan/Chief Complaint Assessment: Status post uncomplicated left below the knee amputation POD # 5 Hypertension Obesity Diabetes mellitus Acute muscle spasms ordered baclofen Presumed obstructive sleep apnea Recent smoking cessation with the help of Chantix Plan: Restarted all home meds PT and OT Rehabilitation consult Continue smoking cessation Pain control Baclofen for muscle spasms Dr Ballesteros to assess redness on left stump Monitor lung closely (1) Amputation of left lower extremity below knee (2) Peripheral vascular disease (3) IDDM (insulin dependent diabetes mellitus) (4) Chronic pain (5) Hypertension (6) Hyperlipidemia (7) BMI 40.0-44.9, adult (8) DVT prophylaxis (9) Debility (10) Tobacco use (11) Marijuana use SARAHY SANTANA DO Jun 11, 2019 08:53
[2019-06-11] MEDS: ADVAIR HFA 115/21 MCG INHALER 8 GM IH SCH ×3 (08:56→19:26)
[2019-06-11] MEDS: LACTULOSE SYRUP 10GM/15ML (ENULOSE) 30ML UDC PO SCH ×2 (09:00→20:55)
[2019-06-11] MEDS: POLYETHYLENE GLYCOL 17 GM (MIRALAX) PACK PO SCH ×2 (09:00→20:55)
[2019-06-11] MEDS: DOCUSATE SODIUM 100 MG (COLACE) CAP PO SCH ×2 (09:00→20:48)
--- NOTE | 2019-06-11 09:06 | NUR ---
PATIENT DID NOT GET HIS ADVAIR THIS AM DUE TO RT CALLED AND GOT A NEW INHALER SINCE PATIENT IS IN ISOLATION NOW. ONCE RT GOT THE INHALER, PATIENT HAD STAFF TALKING WITH PATIENT AND WHEN SHE WAS DONE PT/OT ENTERED THE PATIENTS ROOM. SO ADVAIR WAS NOT GIVEN THIS AM
[2019-06-11] MEDS: SENNA W/DOCUSATE (SENOKOT S) TABLET PO SCH ×2 (09:18→20:49)
[2019-06-11] MEDS: CYCLOBENZAPRINE 10 MG (FLEXERIL) TAB PO PRN (09:18)
[2019-06-11] MEDS: ASPIRIN 81 MG CHEW (CHILDREN'S ASA) PO SCH (09:18)
[2019-06-11] MEDS: GABAPENTIN 600 MG (NEURONTIN) TAB PO SCH ×3 (09:18→20:48)
--- NOTE | 2019-06-11 10:16 | Occupational Ther Daily Note ---
OT Current Status-Daily Note Subjective Pt sitting EOB, agrees to treatment. Pt reports 8/10 pain in left LE Mental Status/Objective Therapy Code Descriptions/Definitions Functional [place] Measure: 0=Not Assessed/NA 4=Minimal Assistance 1=Total Assistance 5=Supervision or Setup 2=Maximal Assistance 6=Modified Day 3=Moderate Assistance 7=Complete Day ADL-Treatment Pt is already dressed, states he completed this morning without assist at bed level. Declined need to complete other ADLs. Therapy Code Descriptions/Definitions Functional [place] Measure: 0=Not Assessed/NA 4=Minimal Assistance 1=Total Assistance 5=Supervision or Setup 2=Maximal Assistance 6=Modified Day 3=Moderate Assistance 7=Complete Day Therapy Quality Codes: 6 Independent with activity with or without an assistive device 5 Patient requires set up or clean up by helper. Patient completes activity by themselves 4 Supervision or touching assist (CGA). [place] provide cues , steadying assist 3 The helper provides less than half the effort to complete the activity 2 The helper provides more than half the effort to complete the activity 1 Dependent. The helper does all the effort to complete an activity 7 Patient refused to complete or attempt activity 9 The patient did not perform the activity before the current illness or injury 88 Not attempted due to Medical conditions or safety concerns Other Treatment Pt transferred EOB to w/c with SBA without use of slide board. W/c mobility to therapy gym without assist. Pt performed left shoulder flexion and abduction exercises x10 reps, 2 sets with 3# weight. Bilateral biceps curls and wrist flexion/extension exercises with 3#weight x10 reps, 2 sets to increase strength needed for ADLs and transfers. Arm bike x10 minutes to increase overall strength and activity tolerance for functional task completion. Pt performed activity with moderate resistance and steady pace. No rest breaks needed. Pt practiced transfers from even surfaces w/c <-> edge of mat. Pt is able to complete with supervision and cues for w/c placement. W/c push ups x5 reps, 2 sets to increase strength for transfers. Pt requires occasional rest breaks throughout treatment. Pt returned to room, transferred to EOB with SBA and cues for safety. Doff right prosthesis without assist. Sit to supine without assist. Pt resting in bed with needs met after session. Education OT Patient Education: Safety issues Teaching Recipient: Patient Teaching Methods: Discussion Response to Teaching: Verbalize Understanding OT Short Term Goals Short Term Goals Time Frame: Jun 17, 2019 Transfers (B,C,W/C) (FIM): 4 (CGA) 1=Demonstrate adherence to instructed precautions during ADL tasks. 2=Patient will verbalize/demonstrate understanding of assistive devices/modifications for ADL. 3=Patient will improve strength/tolerance for activity to enable patient to perform ADL's. OT Penitentiary Goals Penitentiary Goals Time Frame: Jul 01, 2019 Eating (FIM): 7 Eating (QC): 7 Groomin Oral Hygiene (QC): 6 Bathing(FIM): 7 Shower/Bathe Self (QC): 6 Upper Body Dressing(FIM): 7 Upper Body Dressing (QC): 6 Lower Body Dressing(FIM): 7 Lower Body Dressing (QC): 6 Toileting(FIM): 7 Toileting Hygiene (QC): 6 Toilet/Commode Transfer(FIM): 6 Toilet/Commode Transfer (QC): 6 Shower Transfer(FIM): 6 Comprehension(FIM): 7 Expression (FIM): 7 Social Interaction(FIM): 7 Problem Solving(FIM): 7 Memory(FIM): 7 Additional Goals: 1-Demonstrate ADL Tasks, 2-Verbalize Understanding, 3- ImproveStrength/Fabián 1=Demonstrate adherence to instructed precautions during ADL tasks. 2=Patient will verbalize/demonstrate understanding of assistive devices/modifications for ADL. 3=Patient will improve strength/tolerance for activity to enable patient to perform ADL's. OT Education/Plan Discharge Recommendations Plan/Recommendations: Continue POC Treatment Plan/Plan of Care Patient would benefit from OT for education, treatment and training to promote independence in ADL's, mobility, safety and/or upper extremity function for ADL's. Plan of Care: ADL Retraining, Functional Mobility, Group Exercise/Act as Ind, UE Funct Exercise/Act Treatment Duration: Jul 01, 2019 Frequency: At least 5 of 7 days/Wk (IRF) Estimated Hrs Per Day: 1.5 hours per day Rehab Potential: Fair Time/GCodes Start Time: 09:00 Stop Time: 10:00 Total Time Billed (hr/min): 60 Billed Treatment Time 1 visit, EX(30minutes), FA(30minutes) NIKKI TAFOYA OT Jun 11, 2019 10:16
--- NOTE | 2019-06-11 12:03 | Physical Therapy Daily Note ---
PT Daily Note-Current Subjective Pt laying Supine in bed upon arrival. Pt agrees to PT. Pain Numeric Pain Scale: 7 Location: Left Location Body Site: Calf Pain Description: Ache, Tightness Mental Status Patient Orientation: Person, Place, Time, Situation Attachments: Other-See Comments (R Prosethsis & Mauricio Wrap for L amputation) Transfers Therapy Code Descriptions/Definitions Functional [place] Measure: 0=Not Assessed/NA 4=Minimal Assistance 1=Total Assistance 5=Supervision or Setup 2=Maximal Assistance 6=Modified [place] 3=Moderate Assistance 7=Complete [place] Therapy Quality Codes: 6 Independent with activity with or without an assistive device 5 Patient requires set up or clean up by helper. Patient completes activity by themselves 4 Supervision or touching assist (CGA). [place] provide cues , steadying assist 3 The helper provides less than half the effort to complete the activity 2 The helper provides more than half the effort to complete the activity 1 Dependent. The helper does all the effort to complete an activity 7 Patient refused to complete or attempt activity 9 The patient did not perform the activity before the current illness or injury 88 Not attempted due to Medical conditions or safety concerns Scootin Rollin Roll Left to Right (QC): 5 Supine to/from Sit: 5 Sit to/from Stand: 5 Sit to Lying (QC): 5 Sit to Stand (QC): 5 Chair/Dgd-kl-Hmred Xfer(QC): 5 Bed to/from Chair: 5 Wheelchair Training Does the Pt Use a Wheelchair?: Yes Wheelchair (FIM): 6 Wheelchair Distance: 3=150 ft Distance: 175' Wheelchair Level of Assist: 6 Wheel 50 ft with 2 turns (QC): 6 Wheel 150 ft (QC): 6 Type of Wheelchair: Manual Exercises Supine Ex: Quad Set, Glut sets, Heel Slides, Straight leg raise, Hip abd/add Supine Reps: 20 (2 sets) Treatments Pt transfers from bed to W/C and able to propel W/C in hallway. Pt completes Supine EX with RB as needed. Pt stretches prone for knee extension. Pt transfers back to W/C then uses NuStep for 13m at WL 5. Pt attempts ambulation in //bars but cannot put enough weight through UE to advance R LE. Pt stands in //bars instead of walking. Pt then again propels self in W/C to room to rest Supine in bed. Pt has all needs met, call light in hand. Assessment Current Status: Good Progress Pt needs VC for safety especially with transfers. PT Short Term Goals Short Term Goals Time Frame: Jun 17, 2019 Transfers (B,C,W/C) (FIM): 4 (CGA) Gait (FIM): 1 Gait Distance Comment: 5' Gait Level of Assist: 4 Gait Assistive Device: FWW Wheelchair Distance: 150'x2 PT Toolsmith Goals Toolsmith Goals PT Toolsmith Goals Time Frame: Jul 01, 2019 Transfers (B,C,W/C) (FIM): 5 Sit to Lying (QC): 6 Lying-Sitting on Side/Bed(QC): 6 Sit to Stand (QC): 5 Rollin Roll Left to Right (QC): 6 Chair/Jfu-is-Surnl Xfer(QC): 4 Car Transfer (QC): 4 Gait (FIM): 7 Distance: 10' Walk 10 feet (QC): 4 Walk 10ft-Uneven Surface(QC): 4 Gait Level of Assist: 4 Gait Assistive Device: FWW Wheelchair Level of Assist: 6 Wheel 50 feet with 2 turns (QC: 6 PT Plan Problem List Problem List: Activity Tolerance, Functional Strength, Safety Treatment/Plan Treatment Plan: Continue Plan of Care Treatment Plan: Bed Mobility, Concurrent Therapy, Education, Functional Activity Fabián, Functional Strength, Group Therapy, Gait, Safety, Therapeutic Exercise, Transfers Treatment Duration: Jul 01, 2019 Frequency: At least 5 of 7 days/Wk (IRF) Estimated Hrs Per Day: 1.5 hours per day Patient and/or Family Agrees t: Yes Safety Risks/Education Patient Education: Transfer Techniques, Correct Positioning, Safety Issues Teaching Recipient: Patient Teaching Methods: Discussion Response to Teaching: Verbalize Understanding Time/GCodes Time In: 1000 Time Out: 1100 Total Billed Treatment Time: 60 Total Billed Treatment 1, WCH (15m), EX x2 (30m) & FA (15m) G Codes Necessary: BRUCE Chavez PTA Jun 11, 2019 12:03
[2019-06-11] MEDS: BACLOFEN 10 MG (LIORESAL) TAB PO PRN ×2 (12:40→20:47)
--- NOTE | 2019-06-11 12:45 | ST Cognitive Linguistic Eval ---
Speech Evaluation-General Medical Diagnosis left BKA Onset Date: Jun 05, 2019 Therapy Diagnosis Therapy Diagnosis: Cognitive-communication Precautions Precautions: Fall, Pressure Ulcer Precautions/Isolations: Fall Prevention, Standard Precautions, Pressure Ulcer Referral Referring Physician: Dr. Deluna Reason for Referral: Evaluation/Treatment Medical History Pertinent Medical History: Arthritis, CAD, COPD, DM, GERD, HTN, Neuropathy, PVD Arthritis, CAD, DM, COPD, GERD, HTN, Neuropathy and PVD Current History Amputation Reviewed History: Yes Social History Home: Single Level Current Living Status: Alone Speech PLF-Current Status Language Eval: Auditory Comprehends Simple Yes/No Ques: Functional Indent/Objects Multiple Benz: Functional Ident/Pics in Multiple Benz: Functional Follows 1-Step Commands: Functional Follows Complex Directions: Functional Follows General Conversations: Functional Language Eval: Verbal Language Completes Spontaneous Greeting: Functional Produces Auto, Serial Info: Functional Imitates Simple Words/Phrases: Functional Word Finding: Functional Requests Basic Needs: Functional States Basic Personal Info: Functional Expresses Complex Ideas: Functional Cognitive Patient Orientation Patient is oriented to all concepts Objective Cognitive Domain Attention: WNL Memory: WNL Problem Solving: Functional Executive Functions: WNL Visuospatial Skills: WNL Composite Severity Rating: WNL Clock Drawing Severity Rating: WNL Score: 28/30 Range: Normal Objective Formal/Standardized Tests [facility] Mental Status ([facility]) Results The patient scored a 28/30 within normal range Oral Motor/Speech Production Within Functional Limits Impression The patient is a pleasant 54 year old male who was admitted to the NEU s/p bka. He had previously undergone the same procedure on the right leg in 2013. He was evaluated with the [facility] scoring 28/30. This is within the normal range. No skilled ST is indicated at this time. Communication/Social Cognition Comprehension: 7 Expression: 7 Social Interaction: 7 Problem Solvin Memory: 7 Speech Patient Assess Expression of Ideas/Wants: Expression (4) Understanding Verbal Content: Understands (4) Brief Interview-Mental Status: Yes Repetition of Three Words: Three (3) Temporal Orientation: Year: Correct (3) Temporal Orientation: Month: Accurate within 5 days(2) Temporal Orientation: Day: Correct (1) Recall : Wear to say "Sock": Yes, no cue required (2) Recall : Color: Yes, no cue required (2) Recall : Bed: Yes,after cueing (1) Add-Enter 99 if pt cannot comp: 99 Memory/Recall Ability: Current season, Location of own room, Staff names and faces, That he or she is in a hsp/hsp unit Speech Industrial Arts Teacher Goals Industrial Arts Teacher Goals Comprehension: 7 Expression: 7 Social Interaction: 7 Problem Solvin Memory: 7 Speech-Plan Patient/Family Goals Patient/Family Goals: The patient plans on returning home post rehab. Treatment Plan Speech Therapy Treatment Plan: Discontinue ST The patient does not require skilled ST services at this time. Treatment Duration: Jun 11, 2019 Frequency: 1 time per week Estimated Hrs Per Day: .25 hour per day Rehab Potential: Fair Barriers to Learning: None identified Pt/Family Agrees to Plan: Yes Safety Risks/Education Teaching Recipient: Patient Teaching Methods: Discussion Response to Teaching: Verbalize Understanding Education Topics Provided: Safety within his room Time Speech Therapy Time In: 08:45 Speech Therapy Time Out: 09:00 Total Billed Time: 15 Billed Treatment Time 1, SPSNDCOMP DAI Boyd Jun 11, 2019 12:45
[2019-06-11] MEDS ORDERED: NON-FORMULARY MEDICATION 1 EA EA (Dulaglutide (Trulicity) 0.75 MG) SQ SCH (13:45)
--- NOTE | 2019-06-11 14:39 | Occupational Ther Daily Note ---
OT Current Status-Daily Note Subjective Pt in bed, agrees to therapy. Mental Status/Objective Therapy Code Descriptions/Definitions Functional [place] Measure: 0=Not Assessed/NA 4=Minimal Assistance 1=Total Assistance 5=Supervision or Setup 2=Maximal Assistance 6=Modified [place] 3=Moderate Assistance 7=Complete [place] ADL-Treatment Pt supine to sit with modified independence. Transferred EOB to w/c with SBA and cues on where to place w/c for increased safety. Pt performed w/c mobility to shower room without assist. Pt states he has a tub/shower combo at home and a shower bench. Educated pt on safe shower transfer technique. Pt states understanding of education. Pt states his bathroom is very small and he may be able to get his electric w/c through doorway, but is not sure. Pt reports he does not currently have any grab bars in the bathroom, but has some that need to be installed. Will continue to address home safety and DME needs. Pt performed w/c mobility around commons area and returned to room. Pt transferred w/c <-> EOB with SBA. Pt resting in bed with needs met after session. Therapy Code Descriptions/Definitions Functional [place] Measure: 0=Not Assessed/NA 4=Minimal Assistance 1=Total Assistance 5=Supervision or Setup 2=Maximal Assistance 6=Modified [place] 3=Moderate Assistance 7=Complete [place] Therapy Quality Codes: 6 Independent with activity with or without an assistive device 5 Patient requires set up or clean up by helper. Patient completes activity by themselves 4 Supervision or touching assist (CGA). [place] provide cues , steadying assist 3 The helper provides less than half the effort to complete the activity 2 The helper provides more than half the effort to complete the activity 1 Dependent. The helper does all the effort to complete an activity 7 Patient refused to complete or attempt activity 9 The patient did not perform the activity before the current illness or injury 88 Not attempted due to Medical conditions or safety concerns OT Short Term Goals Short Term Goals Time Frame: Jun 17, 2019 Transfers (B,C,W/C) (FIM): 4 (CGA) 1=Demonstrate adherence to instructed precautions during ADL tasks. 2=Patient will verbalize/demonstrate understanding of assistive devices/modifications for ADL. 3=Patient will improve strength/tolerance for activity to enable patient to perform ADL's. OT Group Home Goals Development Assistant Goals Time Frame: Jul 01, 2019 Eating (FIM): 7 Eating (QC): 7 Groomin Oral Hygiene (QC): 6 Bathing(FIM): 7 Shower/Bathe Self (QC): 6 Upper Body Dressing(FIM): 7 Upper Body Dressing (QC): 6 Lower Body Dressing(FIM): 7 Lower Body Dressing (QC): 6 Toileting(FIM): 7 Toileting Hygiene (QC): 6 Toilet/Commode Transfer(FIM): 6 Toilet/Commode Transfer (QC): 6 Shower Transfer(FIM): 6 Comprehension(FIM): 7 Expression (FIM): 7 Social Interaction(FIM): 7 Problem Solving(FIM): 7 Memory(FIM): 7 Additional Goals: 1-Demonstrate ADL Tasks, 2-Verbalize Understanding, 3-Improv eStrength/Fabián 1=Demonstrate adherence to instructed precautions during ADL tasks. 2=Patient will verbalize/demonstrate understanding of assistive devices/modifications for ADL. 3=Patient will improve strength/tolerance for activity to enable patient to p erform ADL's. OT Education/Plan Discharge Recommendations Plan/Recommendations: Continue POC Treatment Plan/Plan of Care Patient would benefit from OT for education, treatment and training to promote independence in ADL's, mobility, safety and/or upper extremity function for ADL's. Plan of Care: ADL Retraining, Functional Mobility, Group Exercise/Act as Ind, UE Funct Exercise/Act Treatment Duration: Jul 01, 2019 Frequency: At least 5 of 7 days/Wk (IRF) Estimated Hrs Per Day: 1.5 hours per day Rehab Potential: Fair Time/GCodes Start Time: 11:30 Stop Time: 12:30 Total Time Billed (hr/min): 30 Billed Treatment Time 1 visit, FAx2(30minutes) NIKKI TAFOYA OT Jun 11, 2019 14:39
--- NOTE | 2019-06-11 15:20 | Physical Therapy Daily Note ---
PT Daily Note-Current Subjective Pt sitting in W/C upon arrival. Pt agrees to PT. Pain Numeric Pain Scale: 7 Location: Left Location Body Site: Calf Pain Description: Ache, Tightness Mental Status Patient Orientation: Person, Place, Situation Attachments: Other-See Comments (R prothesis & L arabella wrap) Transfers Therapy Code Descriptions/Definitions Functional [place] Measure: 0=Not Assessed/NA 4=Minimal Assistance 1=Total Assistance 5=Supervision or Setup 2=Maximal Assistance 6=Modified [place] 3=Moderate Assistance 7=Complete [place] Therapy Quality Codes: 6 Independent with activity with or without an assistive device 5 Patient requires set up or clean up by helper. Patient completes activity by themselves 4 Supervision or touching assist (CGA). [place] provide cues , steadying assist 3 The helper provides less than half the effort to complete the activity 2 The helper provides more than half the effort to complete the activity 1 Dependent. The helper does all the effort to complete an activity 7 Patient refused to complete or attempt activity 9 The patient did not perform the activity before the current illness or injury 88 Not attempted due to Medical conditions or safety concerns Scootin Supine to/from Sit: 5 Sit to/from Stand: 5 Sit to Stand (QC): 5 Wheelchair Training Does the Pt Use a Wheelchair?: Yes Wheelchair (FIM): 6 Wheelchair Distance: 3=150 ft Distance: 150' Wheelchair Level of Assist: 6 Wheel 50 ft with 2 turns (QC): 6 Wheel 150 ft (QC): 6 Type of Wheelchair: Manual Treatments Pt propels W/C in hallway and to Therapy Gym. Pt attempts (x3) walking w/FWW w/in //bars. YOUTH ASSOCIATE and pt discuss need for improved UE strength to WB through UE, allowing R LE to advance. PT is not able to WB enough yet to advance R LE. Pt propels W/C in hallway and back to room, resting in bed at end of tx. Pt has all needs met, call light next to pt. Assessment Current Status: Fair Progress Pt is able to complete most tasks given but continuing to work on UE for ambulation. Pt is not always safe with transfers and VC are given but not always followed. PT Short Term Goals Short Term Goals Time Frame: Jun 17, 2019 Transfers (B,C,W/C) (FIM): 4 (CGA) Gait (FIM): 1 Gait Distance Comment: 5' Gait Level of Assist: 4 Gait Assistive Device: FWW Wheelchair Distance: 175' PT Detention Goals Detention Goals PT Payroll Secretary Goals Time Frame: Jul 01, 2019 Transfers (B,C,W/C) (FIM): 5 Sit to Lying (QC): 6 Lying-Sitting on Side/Bed(QC): 6 Sit to Stand (QC): 5 Rollin Roll Left to Right (QC): 6 Chair/Uop-of-Smwyd Xfer(QC): 4 Car Transfer (QC): 4 Gait (FIM): 7 Distance: 10' Walk 10 feet (QC): 4 Walk 10ft-Uneven Surface(QC): 4 Gait Level of Assist: 4 Gait Assistive Device: FWW Wheelchair Level of Assist: 6 Wheel 50 feet with 2 turns (QC: 6 PT Plan Problem List Problem List: Activity Tolerance, Functional Strength, Safety Treatment/Plan Treatment Plan: Continue Plan of Care Treatment Plan: Bed Mobility, Concurrent Therapy, Education, Functional Activity Fabián, Functional Strength, Group Therapy, Gait, Safety, Therapeutic Exercise, Transfers Treatment Duration: Jul 01, 2019 Frequency: At least 5 of 7 days/Wk (IRF) Estimated Hrs Per Day: 1.5 hours per day Patient and/or Family Agrees t: Yes Safety Risks/Education Patient Education: Gait Training, Transfer Techniques, Correct Positioning, Safety Issues Teaching Recipient: Patient Teaching Methods: Discussion Response to Teaching: Reinforcement Needed Time/GCodes Time In: 1430 Time Out: 1500 Total Billed Treatment Time: 30 Total Billed Treatment 1, WCH (10m) & FA (20m) G Codes Necessary: BRUCE Chavez YOUTH ASSOCIATE Jun 11, 2019 15:20
[2019-06-11 18:50] VITALS: BP 128/71
[2019-06-11] MEDS: ATORVASTATIN 40 MG (LIPITOR) TABLET PO SCH (20:48)
[2019-06-11] MEDS: PANTOPRAZOLE 40 MG (PROTONIX) TAB PO SCH (20:48)
--- NOTE | 2019-06-11 21:48 | Individualized Plan of Care ---
Individualized Plan of Care Rehab Nursing IPOC Order Admission Date Jun 10, 2019 at 11:15 Current Orders Orders Admission Order(Inpt,Obs,Sdc) (06/10/19 09:54) Vital Signs: Per Unit Policy ( 08,16,00 (06/10/19 09:54) [employer]-Inpt Rehab Con (06/10/19 09:54) Rehab Nursing Orders-Ipoc (06/10/19 09:54) Physical Therapy Rehab Orders (06/10/19 09:54) Occupational Therapy Rehab Ord (06/10/19 09:54) Speech Therapy Rehab Orders (06/10/19 09:54) Intake & Output 06,14,22 (06/10/19 09:54) Precautions (Aru) (06/10/19 09:54) Weekly Weight (Lbs) WEEK (06/10/19 09:54) Rehab-Intensity Of Therapy (06/10/19 09:54) Initiate Admission Nursing Pro .admission (06/10/19 09:54) Code/Resuscitation (06/10/19 13:33) Accucheck Achs ACHS (06/10/19 13:33) Incentive Spirometry (Nursing) Q2H (06/10/19 13:33) Oxygen-Administer 07,19 (06/10/19 13:33) Cho 60g/M 3snack (16-2000 Gennaro) (06/10/19 Dinner) (Nf) Dulaglutide (Trulicity) (06/11/19 13:45) (Nf) Varenicline Tartrate (Chantix) (06/10/19 21:00) Albuterol Pre-Mix Nebs (Rt) (Proventil (06/10/19 13:45) Aspirin Chewable Tablet (Baby Aspirin Ch (06/11/19 09:00) Atorvastatin Tablet (Lipitor) (06/10/19 21:00) Baclofen Tablet (Lioresal Tablet) (06/10/19 13:45) Cyclobenzaprine Tablet (Flexeril Tablet) (06/10/19 13:45) Enoxaparin Injection (Lovenox Injection) (06/10/19 13:45) Fluticasone/Salmeterol Common (Advair 11 (06/10/19 20:00) Gabapentin Capsule/Tablet (Neurontin Cap (06/10/19 13:45) Hydrocodone/Apap 5/325 Tablet (Lortab 5 (06/10/19 13:45) Ibuprofen Tablet (Motrin Tablet) (06/10/19 13:45) Ondansetron Injection (Zofran Injectio (06/10/19 13:45) Pantoprazole Tablet (Protonix Tablet) (06/10/19 21:00) Glipizide Tablet (Glucotrol Tablet) (06/11/19 06:30) Insulin Aspart (Novolog) (Novolog (Charg (06/10/19 16:00) Insulin Determir (Per Unit) (Levemir (Pe (06/10/19 21:00) Morphine Injection (Morphine Injection (06/10/19 13:45) Oxygen Delivery Set Up (06/10/19 13:33) Svn Small Volume Nebulizer (06/10/19 13:33) Svn Small Volume Nebulizer (06/10/19 13:33) Mdi Treatment (06/10/19 13:33) Cbc With Automated Diff (06/11/19 06:00) Comprehensive Metabolic Panel (06/11/19 06:00) Acetaminophen Tablet (Tylenol Tablet) (06/10/19 13:45) Alprazolam Tablet (Xanax Tablet) (06/10/19 13:45) Calcium Carbonate Chew Tablet (Antacid C (06/10/19 13:45) Diphenhydramine Tablet (Benadryl Tablet) (06/10/19 13:45) Docusate Sodium Capsule (Colace Capsule) (06/10/19 21:00) Lactulose Oral Solution (Enulose Oral So (06/10/19 13:45) Bisacodyl Suppository (Dulcolax Supposit (06/10/19 13:45) Polyethylene Glycol Powder Pkt (Miralax (06/10/19 13:45) Senna S Tablet (Senokot S Tablet) (06/10/19 13:45) Enoxaparin Injection (Lovenox Injection) (06/10/19 18:00) Isolation Central Supply Req (06/10/19 18:02) Consult General Surgery (06/10/19 18:04) Fluticasone/Salmeterol 115/21 (Advair Hf (06/11/19 08:15) Patient Visit (06/10/19 ) Pt Eval Moderate Complexity (06/10/19 ) Exercise Therap, Ea 15 Min (06/10/19 ) Functional Activities, Ea 15 (06/10/19 ) Wheelchair Mgmt/Propulsn 15min (06/10/19 ) Patient Visit (06/11/19 ) Wheelchair Mgmt/Propulsn 15min (06/11/19 ) Exercise Therap, Ea 15 Min (06/11/19 ) Functional Activities, Ea 15 (06/11/19 ) Patient Visit (06/11/19 ) Wheelchair Mgmt/Propulsn 15min (06/11/19 ) Functional Activities, Ea 15 (06/11/19 ) Patient Visit (06/11/19 ) Speech Sound Lang Comp (06/11/19 ) Rehab Nursing Orders: Ongoing Assess. of Cognitive Status, Ongoing Assess. of Function Status, Bladder Scan, Bowel Management, Disease Management & Educaiton, DVT Prophylaxis, Fall Prevention, Fluid/Electrolyte/Nutrition Mgmt, Infection Prevention, Medication Management & Education, Management of Risks & Complications, Management of Skin Intergrity, Nutrition Management, Pain Management, Patient/Family Support, Safety Management Intensity of Therapy to be met Patient to be seen: Min.3h per day/5 of 7d PT IPOC Problem List: Activity Tolerance, Functional Strength, Safety Treatment Plan: Continue Plan of Care Bed Mobility, Concurrent Therapy, Education, Functional Activity Fabián, Functional Strength, Group Therapy, Gait, Safety, Therapeutic Exercise, Transfers Treatment Duration: Jul 01, 2019 Frequency: At least 5 of 7 days/Wk (IRF) Estimated Hrs Per Day: 1.5 hours per day OT IPOC Problems: Decreased UE Strength, Dependent Transfers, Impaired I ADL's, Impaired Self-Care Skills OT Treatment, Training and Edu: Yes Plan of Care: ADL Retraining, Functional Mobility, Group Exercise/Act as Ind, UE Funct Exercise/Act Treatment Duration: Jul 01, 2019 Frequency: At least 5 of 7 days/Wk (IRF) Estimated Hrs Per Day: 1.[address] IPOC Speech Therapy Treatment Plan: Discontinue ST Treatment Duration: Jun 11, 2019 Frequency: 1 time per week Estimated Hrs Per Day: .25 hour per day [employer]/Case Mgmt [employer]/Case Managemen: Discharge Planning Dietitian/Container Shop Welder Dietitian/Container Shop Welder to monitor nutritional status and make changes and/or recommendations as needed and work with speech pathology on dietary upgrades as the occur. 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 and wide variation in blood sugar with high risk for infection of the left stump Medical Issues: Bowel/Bladder Function, DVT Prophylaxis, Falls Precautions, Fluid/Electrolyte/Nutrition Balance, Infection Protection, Pain Management, Swallowing Precautions, Wound Care Brief Synthesis of Preadmission Screen, Post-Admission Evaluation, and Therapy Evaluations: Physical therapy will require focusing on transfer from bed to wheelchair and fall prevention Occupational Therapy will focus on regaining independence with ADLs Medical Prognosis: Good Anticipated Length of Stay: 7 days SARAHY SANTANA DO Jun 11, 2019 21:48
[2019-06-12] MEDS: HYDROcodone/APAP 5 MG/325 MG (LORTAB) TAB PO PRN ×4 (03:10→20:49)
[2019-06-12] MEDS: LACTULOSE SYRUP 10GM/15ML (ENULOSE) 30ML UDC PO SCH ×2 (05:53→20:58)
[2019-06-12] MEDS: glipiZIDE 5 MG (GLUCOTROL) TAB PO SCH (05:54)
[2019-06-12] MEDS: POLYETHYLENE GLYCOL 17 GM (MIRALAX) PACK PO SCH ×2 (05:54→20:59)
[2019-06-12] MEDS: inSUlin ASPART (NovoLOG) 1 UNIT/0.01 ML (CHARGE PER UNIT) SC SCH ×3 (05:58→17:04)
[2019-06-12] MEDS: ENOXAPARIN 40 MG/0.4 ML (LOVENOX) SYR SC SCH ×2 (05:59→17:04)
[2019-06-12 06:13] VITALS: BP 147/78
--- NOTE | 2019-06-12 08:47 | PM&R Progress Note ---
Subjective HPI/CC On Admission Date Seen by Provider: Jun 12, 2019 Time Seen by Provider: 08:45 Per Med-Surg consultation 06/06/19: Chief complaint: Status post uncomplicated left below the knee amputation History present illness: This is a 54-year-old white male clinic patient of [facility] with a past medical history of morbid obesity in addition to diabetes who presents following an uncomplicated left below the knee amputation. 5 other partial amputations had been performed that resulted in remaining nonhealing ulcerations so the decision was made to complete the amputation in order to facilitate healing and placement of a prosthesis. At this current time patient reports muscle spasms so I did order baclofen. He use to have home oxygen but he stopped wearing it. He appears to have high risk for sleep apnea. I have restarted all of his home medications and will initiate PT and OT orders and place inpatient rehabilitation eval. He quit smoking 5 weeks ago with the help of Chantix. Chief complaint: Left below the knee amputation in need of rehab for help with transfers to and from wheelchair and use of prosthesis History of present illness: This is a 54-year-old white male known to me from consultation last week requested by Dr. Worley following a left below the knee amputation by Dr. Worley on 06/06/2019. He had an uneventful week pain was well controlled with narcotic pain medication in addition to baclofen. Bowel regimen maintained but slow transit constipation on a chronic basis precluded anything of results on that organ system so will work aggressively during inpatient rehab course for bowel evacuation. He does have a history of ESBL UTI in July 2018. Blood sugars have been well controlled on his home insulin regimen and has been maintained on Lovenox for DVT prophylaxis. Labs have been monitored closely and to note he definitely needs intensive therapy and techniques from physical therapy because he has a previous right below the knee amputation in the remote past. At this current time patient reports that his pain is well controlled there is a question of some blister and drainage on his stump so will evaluate that with general surgery consultation. I checked his meds and labs and restored all orders and will monitor patient closely due to his significant comorbidities. His prior level of functioning was the use of a right leg prosthesis and now he has bilateral below the knee amputations so will need wheelchair transfer work along with ADL independent techniques. Subjective/Events-last exam Flexeril in the morning is being given. Wore oxygen and did not wear a CPAP lastnight. BM this morning was large. Lactulose and MiraLax are still being given. Stump was assessed by Dr. Ballesteros, no evidence of any cellulitis or any need for any type of surgical procedure. Checked meds and labs. Overall improving immensely and is very optimistic about his discharge planning. Conferred with RN Reviewed therapy notes Review of Systems Musculoskeletal: leg pain Objective Exam Vital Signs Vital Signs Date Time Temp Pulse Resp B/P (MAP) Pulse Ox O2 Delivery O2 Flow Rate FiO2 06/12/19 21:27 Nasal Cannula 2.00 06/12/19 20:18 90 06/12/19 18:00 96.8 83 18 113/66 (82) Capillary Refill : General Appearance: No Apparent Distress, WD/WN, Chronically ill, Obese HEENT: PERRL/EOMI, Normal ENT Inspection, Pharynx Normal, Moist Mucous Membranes Neck: Full Range of Motion, Normal Inspection, Non Tender, Supple Respiratory: Chest Non Tender, Lungs Clear, Normal Breath Sounds, No Accessory Muscle Use, No Respiratory Distress, Decreased Breath Sounds Cardiovascular: Regular Rate, Rhythm, No Edema, No Gallop, No JVD, No Murmur Gastrointestinal: Normal Bowel Sounds, No Organomegaly, No Pulsatile Mass, Non Tender, Soft Back: Normal Inspection, No CVA Tenderness, No Vertebral Tenderness Extremity: Normal Capillary Refill, Normal Inspection, Normal Range of Motion (bilateral amputations) Neurologic/Psychiatric: Alert, Oriented x3, No Motor/Sensory Deficits, Normal Mood/Affect, motorcycle police II-XII Norm as Tested, Motor Weakness (decreased ROM thighs due to BKA's) Skin: Normal Color, Warm/Dry Lymphatic: No Adenopathy Results/Procedures Lab Patient resulted labs reviewed. FIM Transfers Therapy Code Descriptions/Definitions Functional [place] Measure: 0=Not Assessed/NA 4=Minimal Assistance 1=Total Assistance 5=Supervision or Setup 2=Maximal Assistance 6=Modified [place] 3=Moderate Assistance 7=Complete [place] Therapy Quality Codes: 6 Independent with activity with or without an assistive device 5 Patient requires set up or clean up by helper. Patient completes activity by themselves 4 Supervision or touching assist (CGA). [place] provide cues , steadying assist 3 The helper provides less than half the effort to complete the activity 2 The helper provides more than half the effort to complete the activity 1 Dependent. The helper does all the effort to complete an activity 7 Patient refused to complete or attempt activity 9 The patient did not perform the activity before the current illness or injury 88 Not attempted due to Medical conditions or safety concerns Transfers (B, C, W/C) (FIM): 3 Scootin Rollin Roll Left to Right (QC): 5 Supine to/from Sit: 5 Sit to/from Stand: 5 Sit to Lying (QC): 5 Sit to Stand (QC): 5 Chair/Apf-lr-Gbemp Xfer(QC): 5 Bed to/from Chair: 5 Car Transfer (QC): 4 Gait Training Does the Patient Walk?: No and Walking Goal IS indicated Wheelchair Training Does the Pt Use a Wheelchair?: Yes Wheelchair (FIM): 6 Wheelchair Distance: 3=150 ft Distance: 150' Wheelchair Level of Assist: 6 Wheel 50 ft with 2 turns (QC): 6 Wheel 150 ft (QC): 6 Type of Wheelchair: Manual Mental Status/Objective Comprehension: 7 Expression: 7 Social Interaction: 7 Problem Solvin Memory: 7 ADL-Treatment Feedin Eating (QC): 6 Groomin Oral Hygiene (QC): 5 Bathin Shower/Bathe Self (QC): 4 Upper Extremity Dressin Upper Body Dressing (QC): 5 Lower Extremity Dressin Lower Body Dressing (QC): 3 On/Off Footwear (QC): 88 (bilateral BKA) Shower: 5 Assessment/Plan Assessment and Plan Assess & Plan/Chief Complaint Assessment: Status post uncomplicated left below the knee amputation POD # 5 Hypertension Obesity Diabetes mellitus Acute muscle spasms ordered baclofen Presumed obstructive sleep apnea Recent smoking cessation with the help of Chantix Plan: Restarted all home meds PT and OT Rehabilitation consult Continue smoking cessation Pain control Baclofen for muscle spasms Dr Ballesteros to monitor redness on left stump Monitor lung closely (1) Amputation of left lower extremity below knee (2) Peripheral vascular disease (3) IDDM (insulin dependent diabetes mellitus) (4) Chronic pain (5) Hypertension (6) Hyperlipidemia (7) BMI 40.0-44.9, adult (8) DVT prophylaxis (9) Debility (10) Tobacco use (11) Marijuana use SARAHY SANTANA DO Jun 12, 2019 08:47
[2019-06-12] MEDS: CYCLOBENZAPRINE 10 MG (FLEXERIL) TAB PO PRN (08:50)
[2019-06-12] MEDS: ASPIRIN 81 MG CHEW (CHILDREN'S ASA) PO SCH (08:50)
[2019-06-12] MEDS: DOCUSATE SODIUM 100 MG (COLACE) CAP PO SCH ×2 (08:50→20:58)
[2019-06-12] MEDS: GABAPENTIN 600 MG (NEURONTIN) TAB PO SCH ×3 (08:50→20:49)
[2019-06-12] MEDS: ADVAIR HFA 115/21 MCG INHALER 8 GM IH SCH ×2 (09:15→20:18)
--- NOTE | 2019-06-12 10:32 | NUR ---
ASPHALT HEATER TENDER met with patient to complete initial assessment. Patient was alert and oriented and agreeable to assessment. Patient admitted to ARU from internally with new L BKA following failed attempts at managing diabetic foot ulcer (surgeon: Dr. Worley). Patient underwent R BKA in Aug 2014 and utilizes a prosthetic on the RLE . Patient previously utilized [facility] in [place], but was not happy with the previous service, as the new socket does not fit appropriately. ASPHALT HEATER TENDER will reach out to an alternative provider regarding new referral, as requested. Prior to hospitalization, patient resided in a [facility] in [place], [place]. The home has a ramp at the entrance. Patient reports independence with all activities prior to fall and did not utilize an AD. Patient does possess a hospital bed, manual and power wheelchair, bedside commode, shower chair and lift chair. Primary contact identified as daughter, Isela at [phone]. PCP identified as [facility]. Insurance verified as Medicare only with prescription coverage. Patient utilizes [facility] for local pharmacy needs. ASPHALT HEATER TENDER reviewed typical ARU length of stay and weekly team conferences. ASPHALT HEATER TENDER will continue to follow for additional needs.
--- NOTE | 2019-06-12 11:00 | NUR ---
Pastoral care visit.
--- NOTE | 2019-06-12 11:06 | Physical Therapy Daily Note ---
PT Daily Note-Current Subjective Pt sitting in W/C at //bars in Therapy Gym upon arrival. Pt agrees to PT. Pain Numeric Pain Scale: 5-Moderate Pain Location: Right, Left Location Body Site: Shoulder Pain Description: Throbbing Mental Status Patient Orientation: Person, Place, Situation Attachments: Other-See Comments (R prothesis & L LE arabella wrapped) Transfers Therapy Code Descriptions/Definitions Functional [place] Measure: 0=Not Assessed/NA 4=Minimal Assistance 1=Total Assistance 5=Supervision or Setup 2=Maximal Assistance 6=Modified [place] 3=Moderate Assistance 7=Complete [place] Therapy Quality Codes: 6 Independent with activity with or without an assistive device 5 Patient requires set up or clean up by helper. Patient completes activity by themselves 4 Supervision or touching assist (CGA). [place] provide cues , steadying assist 3 The helper provides less than half the effort to complete the activity 2 The helper provides more than half the effort to complete the activity 1 Dependent. The helper does all the effort to complete an activity 7 Patient refused to complete or attempt activity 9 The patient did not perform the activity before the current illness or injury 88 Not attempted due to Medical conditions or safety concerns Scootin Supine to/from Sit: 5 Sit to/from Stand: 5 Sit to Lying (QC): 5 Sit to Stand (QC): 5 Chair/Kgw-yw-Qmgsu Xfer(QC): 5 Bed to/from Chair: 5 Wheelchair Training Does the Pt Use a Wheelchair?: Yes Wheelchair (FIM): 6 Wheelchair Distance: 3=150 ft Distance: 175' Wheelchair Level of Assist: 6 Wheel 50 ft with 2 turns (QC): 6 Wheel 150 ft (QC): 6 Type of Wheelchair: Manual Exercises Supine Ex: Quad Set, Heel Slides, Straight leg raise, Hip abd/add Supine Reps: 20 Treatments Pt stands at //bars x3. Pt wants to attempt walking at this time but does not possess enough UE strength to use UE to advance R LE. Pt uses NuStep for 10m at WL 5, taking a couple of RB during EX. Pt completes Supine Ex on Therapy mat as well as stretching hip extensors laying prone. Assessment Current Status: Fair Progress Pt can complete tasks as asked by Therapists but does not always complete them safely, even after being given VC. PT Short Term Goals Short Term Goals Time Frame: Jun 17, 2019 Transfers (B,C,W/C) (FIM): 4 (CGA) Gait (FIM): 1 Gait Distance Comment: 5' Gait Level of Assist: 4 Gait Assistive Device: FWW Wheelchair Distance: 150' PT Mcc Goals Mcc Goals PT Mcc Goals Time Frame: Jul 01, 2019 Transfers (B,C,W/C) (FIM): 5 Sit to Lying (QC): 6 Lying-Sitting on Side/Bed(QC): 6 Sit to Stand (QC): 5 Rollin Roll Left to Right (QC): 6 Chair/Pft-zs-Gpaaq Xfer(QC): 4 Car Transfer (QC): 4 Gait (FIM): 7 Distance: 10' Walk 10 feet (QC): 4 Walk 10ft-Uneven Surface(QC): 4 Gait Level of Assist: 4 Gait Assistive Device: FWW Wheelchair Level of Assist: 6 Wheel 50 feet with 2 turns (QC: 6 PT Plan Problem List Problem List: Activity Tolerance, Functional Strength, Safety Treatment/Plan Treatment Plan: Continue Plan of Care Treatment Plan: Bed Mobility, Concurrent Therapy, Education, Functional Activity Fabián, Functional Strength, Group Therapy, Gait, Safety, Therapeutic Exercise, Transfers Treatment Duration: Jul 01, 2019 Frequency: At least 5 of 7 days/Wk (IRF) Estimated Hrs Per Day: 1.5 hours per day Patient and/or Family Agrees t: Yes Safety Risks/Education Patient Education: Gait Training, Transfer Techniques, Correct Positioning, Safety Issues Teaching Recipient: Patient Teaching Methods: Discussion Response to Teaching: Reinforcement Needed Time/GCodes Time In: 1000 Time Out: 1100 Total Billed Treatment Time: 60 Total Billed Treatment 1, EX x2 (30m), WCH (15m) & FA (15m) G Codes Necessary: BRUCE Chavez DTP OPERATOR Jun 12, 2019 11:06
--- NOTE | 2019-06-12 11:16 | Occupational Ther Daily Note ---
OT Current Status-Daily Note Subjective Pt agreeable to treatment. Reports 7/10 pain in left LE Mental Status/Objective Therapy Code Descriptions/Definitions Functional [place] Measure: 0=Not Assessed/NA 4=Minimal Assistance 1=Total Assistance 5=Supervision or Setup 2=Maximal Assistance 6=Modified [place] 3=Moderate Assistance 7=Complete [place] ADL-Treatment Pt declined shower this morning, states he wants to wait until later today. Therapy Code Descriptions/Definitions Functional [place] Measure: 0=Not Assessed/NA 4=Minimal Assistance 1=Total Assistance 5=Supervision or Setup 2=Maximal Assistance 6=Modified [place] 3=Moderate Assistance 7=Complete [place] Therapy Quality Codes: 6 Independent with activity with or without an assistive device 5 Patient requires set up or clean up by helper. Patient completes activity by themselves 4 Supervision or touching assist (CGA). [place] provide cues , steadying assist 3 The helper provides less than half the effort to complete the activity 2 The helper provides more than half the effort to complete the activity 1 Dependent. The helper does all the effort to complete an activity 7 Patient refused to complete or attempt activity 9 The patient did not perform the activity before the current illness or injury 88 Not attempted due to Medical conditions or safety concerns Other Treatment Pt performed arm bike activity x10 minutes to increase overall strength and activity tolerance needed for functional task completion. Pt performed task with moderate resistance and steady pace. Occasional rest breaks taken. Pt performed bilateral UE exercises to increase strength for ADLs and transfers. Pt performed left shoulder abduction and flexion x10 reps, 2 sets with red theraband. Right shoulder exercises not completed secondary to discomfort. Bilateral biceps curls and triceps extension exercises x20 reps with moderate resistance (red) theraband. Pt performed w/c mobility to elevator and was able to enter and exit elevator without assist and select floor. Pt performed w/c mobility outside on sidewalk and go up/down ramp without assist. Pt fatigues with activity and requires rest break.Pt returned to therapy gym for PT following session. OT Short Term Goals Short Term Goals Time Frame: Jun 17, 2019 Transfers (B,C,W/C) (FIM): 4 (CGA) 1=Demonstrate adherence to instructed precautions during ADL tasks. 2=Patient will verbalize/demonstrate understanding of assistive devices/modifications for ADL. 3=Patient will improve strength/tolerance for activity to enable patient to perform ADL's. OT Fdc Goals Fabrication Supervisor Goals Time Frame: Jul 01, 2019 Eating (FIM): 7 Eating (QC): 7 Groomin Oral Hygiene (QC): 6 Bathing(FIM): 7 Shower/Bathe Self (QC): 6 Upper Body Dressing(FIM): 7 Upper Body Dressing (QC): 6 Lower Body Dressing(FIM): 7 Lower Body Dressing (QC): 6 Toileting(FIM): 7 Toileting Hygiene (QC): 6 Toilet/Commode Transfer(FIM): 6 Toilet/Commode Transfer (QC): 6 Shower Transfer(FIM): 6 Comprehension(FIM): 7 Expression (FIM): 7 Social Interaction(FIM): 7 Problem Solving(FIM): 7 Memory(FIM): 7 Additional Goals: 1-Demonstrate ADL Tasks, 2-Verbalize Understanding, 3- ImproveStrength/Fabián 1=Demonstrate adherence to instructed precautions during ADL tasks. 2=Patient will verbalize/demonstrate understanding of assistive dev ices/modifications for ADL. 3=Patient will improve strength/tolerance for activity to enable patient to perform ADL's. OT Education/Plan Discharge Recommendations Plan/Recommendations: Continue POC Treatment Plan/Plan of Care Patient would benefit from OT for education, treatment and training to promote independence in ADL's, mobility, safety and/or upper extremity function for ADL's. Plan of Care: ADL Retraining, Functional Mobility, Group Exercise/Act as Ind, UE Funct Exercise/Act Treatment Duration: Jul 01, 2019 Frequency: At least 5 of 7 days/Wk (IRF) Estimated Hrs Per Day: 1.5 hours per day Rehab Potential: Fair Time/GCodes Start Time: 09:00 Stop Time: 10:00 Total Time Billed (hr/min): 60 Billed Treatment Time 1 visit, EXx2(35minutes), FAx2(25minutes) NIKKI TAFOYA OT Jun 12, 2019 11:16
[2019-06-12] MEDS: SENNA W/DOCUSATE (SENOKOT S) TABLET PO SCH ×2 (12:35→20:59)
[2019-06-12] MEDS: BACLOFEN 10 MG (LIORESAL) TAB PO PRN ×2 (14:52→20:49)
--- NOTE | 2019-06-12 15:24 | Therapy Group Daily Note ---
Therapy Daily Group Note Patient Education Topic Other List Below (transfers, fine motor functional manipulation) Exercises LE Seated Exercise, Fine Motor, UE Exercise Session Ratio (pt:therapist): 4:1 Goal of Session: UE/LE Strengthing, Safety with Transfers Goal Met for this Session: Yes Pt Benefit of Group: Contributions to Others, F/U Use of Strategies @Home, Increased Functional Safety, Increased Functional Strength, Improved Cognition, Recognition of Peers, Socialization Other/Notes Pt propelled w/c to OT/PT group in [facility]. Group consists of introductions (name, place, favorite summertime activity), socialization, UE/LE seated exercises, education on safe transfer and fine motor functional ma nipulation. Pt introduced self appropriately and activity listened to peers. Pt acknowledged understanding of educational topics by verbalizing own strategies and contributing opinions throughout session. Pt was able to complete all UE/LE pt led exercises. After therapy, pt lying in bed with call light/phone in reach. All need met in room. Start Time: 13:00 Stop Time: 14:00 Total Billed Treatment Time: 60 Total Billed Treatment 1-GRP SHANTANU SORIANO Jun 12, 2019 15:24
[2019-06-12 18:00] VITALS: BP 113/66
[2019-06-12] MEDS ORDERED: DICLOFENAC 1% GEL 100 GM (VOLTAREN) TUBE TOP PRN (18:15)
[2019-06-12] MEDS: PANTOPRAZOLE 40 MG (PROTONIX) TAB PO SCH (20:49)
[2019-06-12] MEDS: ATORVASTATIN 40 MG (LIPITOR) TABLET PO SCH (20:49)
[2019-06-13] MEDS: ENOXAPARIN 40 MG/0.4 ML (LOVENOX) SYR SC SCH ×2 (04:59→17:37)
[2019-06-13] MEDS: HYDROcodone/APAP 5 MG/325 MG (LORTAB) TAB PO PRN ×4 (04:59→21:42)
[2019-06-13] MEDS: glipiZIDE 5 MG (GLUCOTROL) TAB PO SCH (05:00)
[2019-06-13 05:32] VITALS: BP 122/74
[2019-06-13] MEDS: inSUlin ASPART (NovoLOG) 1 UNIT/0.01 ML (CHARGE PER UNIT) SC SCH ×3 (06:17→17:37)
[2019-06-13] MEDS: ADVAIR HFA 115/21 MCG INHALER 8 GM IH SCH ×2 (06:54→21:05)
[2019-06-13] MEDS: GABAPENTIN 600 MG (NEURONTIN) TAB PO SCH ×3 (08:01→21:43)
[2019-06-13] MEDS: SENNA W/DOCUSATE (SENOKOT S) TABLET PO SCH ×2 (08:02→21:45)
[2019-06-13] MEDS: POLYETHYLENE GLYCOL 17 GM (MIRALAX) PACK PO SCH ×2 (08:02→21:45)
[2019-06-13] MEDS: ASPIRIN 81 MG CHEW (CHILDREN'S ASA) PO SCH (08:02)
[2019-06-13] MEDS: DOCUSATE SODIUM 100 MG (COLACE) CAP PO SCH ×2 (08:03→21:44)
[2019-06-13] MEDS: LACTULOSE SYRUP 10GM/15ML (ENULOSE) 30ML UDC PO SCH ×2 (08:03→21:44)
--- NOTE | 2019-06-13 10:18 | PM&R Progress Note ---
Subjective HPI/CC On Admission Date Seen by Provider: Jun 13, 2019 Time Seen by Provider: 08:45 Per Med-Surg consultation 06/06/19: Chief complaint: Status post uncomplicated left below the knee amputation History present illness: This is a 54-year-old white male clinic patient of [facility] with a past medical history of morbid obesity in addition to diabetes who presents following an uncomplicated left below the knee amputation. 5 other partial amputations had been performed that resulted in remaining nonhealing ulcerations so the decision was made to complete the amputation in order to facilitate healing and placement of a prosthesis. At this current time patient reports muscle spasms so I did order baclofen. He use to have home oxygen but he stopped wearing it. He appears to have high risk for sleep apnea. I have restarted all of his home medications and will initiate PT and OT orders and place inpatient rehabilitation eval. He quit smoking 5 weeks ago with the help of Chantix. Chief complaint: Left below the knee amputation in need of rehab for help with transfers to and from wheelchair and use of prosthesis History of present illness: This is a 54-year-old white male known to me from consultation last week requested by Dr. Worley following a left below the knee amputation by Dr. Worley on 06/06/2019. He had an uneventful week pain was well controlled with narcotic pain medication in addition to baclofen. Bowel regimen maintained but slow transit constipation on a chronic basis precluded anything of results on that organ system so will work aggressively during inpatient rehab course for bowel evacuation. He does have a history of ESBL UTI in July 2018. Blood sugars have been well controlled on his home insulin regimen and has been maintained on Lovenox for DVT prophylaxis. Labs have been monitored closely and to note he definitely needs intensive therapy and techniques from physical therapy because he has a previous right below the knee amputation in the remote past. At this current time patient reports that his pain is well controlled there is a question of some blister and drainage on his stump so will evaluate that with general surgery consultation. I checked his meds and labs and restored all orders and will monitor patient closely due to his significant comorbidities. His prior level of functioning was the use of a right leg prosthesis and now he has bilateral below the knee amputations so will need wheelchair transfer work along with ADL independent techniques. Subjective/Events-last exam Wore oxygen and did not wear a CPAP most nights. BM yesterday morning was large. Lactulose and MiraLax are still being given when he allows. Stump was assessed by Dr. Ballesteros, no evidence of any cellulitis or any need for any type of surgical procedure. Checked meds and labs. Overall improving immensely and is very optimistic about his discharge planning. Conferred with RN Reviewed therapy notes Review of Systems General: Fatigue Objective Exam Vital Signs Vital Signs Date Time Temp Pulse Resp B/P (MAP) Pulse Ox O2 Delivery O2 Flow Rate FiO2 06/13/19 09:59 Room Air 06/13/19 06:55 93 06/13/19 05:32 97.3 77 18 122/74 (90) 06/12/19 21:27 2.00 Capillary Refill : General Appearance: No Apparent Distress, WD/WN, Chronically ill, Obese HEENT: PERRL/EOMI, Normal ENT Inspection, Pharynx Normal, Moist Mucous Membranes Neck: Full Range of Motion, Normal Inspection, Non Tender, Supple Respiratory: Chest Non Tender, Lungs Clear, Normal Breath Sounds, No Accessory Muscle Use, No Respiratory Distress, Decreased Breath Sounds Cardiovascular: Regular Rate, Rhythm, No Edema, No Gallop, No JVD, No Murmur Gastrointestinal: Normal Bowel Sounds, No Organomegaly, No Pulsatile Mass, Non Tender, Soft Back: Normal Inspection, No CVA Tenderness, No Vertebral Tenderness Extremity: Normal Capillary Refill, Normal Inspection, Normal Range of Motion (bilateral amputations) Neurologic/Psychiatric: Alert, Oriented x3, No Motor/Sensory Deficits, Normal Mood/Affect, cras II-XII Norm as Tested, Motor Weakness (decreased ROM thighs due to BKA's) Skin: Normal Color, Warm/Dry Lymphatic: No Adenopathy Results/Procedures Lab Patient resulted labs reviewed. FIM Transfers Therapy Code Descriptions/Definitions Functional [place] Measure: 0=Not Assessed/NA 4=Minimal Assistance 1=Total Assistance 5=Supervision or Setup 2=Maximal Assistance 6=Modified [place] 3=Moderate Assistance 7=Complete [place] Therapy Quality Codes: 6 Independent with activity with or without an assistive device 5 Patient requires set up or clean up by helper. Patient completes activity by themselves 4 Supervision or touching assist (CGA). [place] provide cues , steadying assist 3 The helper provides less than half the effort to complete the activity 2 The helper provides more than half the effort to complete the activity 1 Dependent. The helper does all the effort to complete an activity 7 Patient refused to complete or attempt activity 9 The patient did not perform the activity before the current illness or injury 88 Not attempted due to Medical conditions or safety concerns Transfers (B, C, W/C) (FIM): 3 Scootin Rollin Roll Left to Right (QC): 5 Supine to/from Sit: 5 Sit to/from Stand: 5 Sit to Lying (QC): 5 Sit to Stand (QC): 5 Chair/Bxq-hu-Ifsjw Xfer(QC): 5 Bed to/from Chair: 5 Car Transfer (QC): 4 Gait Training Does the Patient Walk?: No and Walking Goal IS indicated Wheelchair Training Does the Pt Use a Wheelchair?: Yes Wheelchair (FIM): 6 Wheelchair Distance: 3=150 ft Distance: 175' Wheelchair Level of Assist: 6 Wheel 50 ft with 2 turns (QC): 6 Wheel 150 ft (QC): 6 Type of Wheelchair: Manual Mental Status/Objective Comprehension: 7 Expression: 7 Social Interaction: 7 Problem Solvin Memory: 7 ADL-Treatment Feedin Eating (QC): 6 Groomin Oral Hygiene (QC): 5 Bathin Shower/Bathe Self (QC): 4 Upper Extremity Dressin Upper Body Dressing (QC): 5 Lower Extremity Dressin Lower Body Dressing (QC): 3 On/Off Footwear (QC): 88 (bilateral BKA) Shower: 5 Assessment/Plan Assessment and Plan Assess & Plan/Chief Complaint Assessment: Status post uncomplicated left below the knee amputation POD # 6 Hypertension Obesity Diabetes mellitus Acute muscle spasms ordered baclofen Presumed obstructive sleep apnea Recent smoking cessation with the help of Chantix Plan: Restarted all home meds PT and OT Rehabilitation consult Continue smoking cessation Pain control Baclofen for muscle spasms Dr Ballesteros to monitor redness on left stump Monitor lung closely (1) Amputation of left lower extremity below knee (2) Peripheral vascular disease (3) IDDM (insulin dependent diabetes mellitus) (4) Chronic pain (5) Hypertension (6) Hyperlipidemia (7) BMI 40.0-44.9, adult (8) DVT prophylaxis (9) Debility (10) Tobacco use (11) Marijuana use SARAHY SANTANA DO Jun 13, 2019 10:18
--- NOTE | 2019-06-13 11:37 | Physical Therapy Daily Note ---
PT Daily Note-Current Subjective Pt. agrees to Rx. Resists use of gait belt but complies after this BODY BUMPER explains. Pt. shares that he is home alone with several pieces of equipment and a ramp Pain Location: No Pain Reported Appearance diaphoretic, gruff voice Mental Status Patient Orientation: Normal For Age Attachments: Other-See Comments (prosthesis on R BKA) Transfers Therapy Code Descriptions/Definitions Functional [place] Measure: 0=Not Assessed/NA 4=Minimal Assistance 1=Total Assistance 5=Supervision or Setup 2=Maximal Assistance 6=Modified [place] 3=Moderate Assistance 7=Complete [place] Therapy Quality Codes: 6 Independent with activity with or without an assistive device 5 Patient requires set up or clean up by helper. Patient completes activity by themselves 4 Supervision or touching assist (CGA). [place] provide cues , steadying assist 3 The helper provides less than half the effort to complete the activity 2 The helper provides more than half the effort to complete the activity 1 Dependent. The helper does all the effort to complete an activity 7 Patient refused to complete or attempt activity 9 The patient did not perform the activity before the current illness or inj ury 88 Not attempted due to Medical conditions or safety concerns Transfers (B, C, W/C) (FIM): 4 Scootin Rollin Supine to/from Sit: 6 (quited the effort for pt.) Sit to/from Stand: 4 (precarious) Bed to/from Chair: 4 sit to stand at parallel bars pt. explains that since he cant get to stance using UEs to push up he has in past and wants now to come up as much as possible with UEs then quickly put his L LE under his bottom in style sitting (which sits him up higher and gives him a spring to push with) then push/pull up again to get to stance all the while rotating to left in precarious position. This was trialed in parallel bars with assist /stand by of 2. It was pointed out to pt the it is not best to put his left residual limb in this stressed situation. Pt. resists these instructions and safety concerns. Wheelchair Training Does the Pt Use a Wheelchair?: Yes Wheelchair (FIM): 6 Wheelchair Distance: 3=150 ft (400x2) Wheelchair Level of Assist: 6 Type of Wheelchair: Manual up down ramp for and back, on off elevator etc, good control; Exercises Supine Ex: Quad Set, Rolling, Glut sets, Heel Slides, Scooting, Straight leg raise, Hip abd/add (red Tband ) Supine Reps: 15 prone hip flexor stretches 4 x 20 sec each, difficult to get good ext in prone as pt. has large abdomen preventing hip flex stretch Treatments w/c to Rx table TRFs x 4, sit to stands at parallel bars with attempts to stand hop on RLE Assessment Current Status: Good Progress pt. gives good effort and wants badly to succeed at [place] alone but resists some safety ideas/precautions PT Short Term Goals Short Term Goals Time Frame: Jun 17, 2019 Transfers (B,C,W/C) (FIM): 4 (CGA) Gait (FIM): 1 Gait Distance Comment: 5' Gait Level of Assist: 4 Gait Assistive Device: FWW Wheelchair Distance: 175' PT Eclectic Doctor Goals Senior Living Goals PT Eclectic Doctor Goals Time Frame: Jul 01, 2019 Transfers (B,C,W/C) (FIM): 5 Sit to Lying (QC): 6 Lying-Sitting on Side/Bed(QC): 6 Sit to Stand (QC): 5 Rollin Roll Left to Right (QC): 6 Chair/Orm-yz-Kbzug Xfer(QC): 4 Car Transfer (QC): 4 Gait (FIM): 7 Distance: 10' Walk 10 feet (QC): 4 Walk 10ft-Uneven Surface(QC): 4 Gait Level of Assist: 4 Gait Assistive Device: FWW Wheelchair Level of Assist: 6 Wheel 50 feet with 2 turns (QC: 6 PT Plan Treatment/Plan Treatment Plan: Continue Plan of Care Treatment Plan: Bed Mobility, Concurrent Therapy, Education, Functional Activity Fabián, Functional Strength, Group Therapy, Gait, Safety, Therapeutic Exercise, Transfers Treatment Duration: Jul 01, 2019 Frequency: At least 5 of 7 days/Wk (IRF) Estimated Hrs Per Day: 1.5 hours per day Patient and/or Family Agrees t: Yes Safety Risks/Education Patient Education: Transfer Techniques, Correct Positioning, W/C Management, Disease Process, Safety Issues Teaching Recipient: Patient Teaching Methods: Demonstration, Discussion Response to Teaching: Verbalize Understanding, Return Demonstration, Reinforcement Needed Time/GCodes Time In: 1030 Time Out: 1130 Total Billed Treatment Time: 60 Total Billed Treatment 1,EX30m,wch 15m,FA15m G Codes Necessary: No LUEBBER, HUSSEIN A BODY BUMPER Jun 13, 2019 11:37
--- NOTE | 2019-06-13 12:55 | Occupational Ther Daily Note ---
OT Current Status-Daily Note Subjective Pt agreeable to therapy this am. Reports 4/10 pain in left LE. Mental Status/Objective Therapy Code Descriptions/Definitions Functional [place] Measure: 0=Not Assessed/NA 4=Minimal Assistance 1=Total Assistance 5=Supervision or Setup 2=Maximal Assistance 6=Modified [place] 3=Moderate Assistance 7=Complete [place] ADL-Treatment Pt states he showered and dressed this morning prior to therapy. Pt practiced transfers w/c <-> toilet x3 trials with SBA using grab bar. Pt requires cues for safety during transfer. Pt demonstrated transfer w/c <-> shower bench with SBA. Pt states he has grab bars that will be installed in his bathroom at home. Therapy Code Descriptions/Definitions Functional [place] Measure: 0=Not Assessed/NA 4=Minimal Assistance 1=Total Assistance 5=Supervision or Setup 2=Maximal Assistance 6=Modified [place] 3=Moderate Assistance 7=Complete [place] Therapy Quality Codes: 6 Independent with activity with or without an assistive device 5 Patient requires set up or clean up by helper. Patient completes activity by themselves 4 Supervision or touching assist (CGA). [place] provide cues , steadying assist 3 The helper provides less than half the effort to complete the activity 2 The helper provides more than half the effort to complete the activity 1 Dependent. The helper does all the effort to complete an activity 7 Patient refused to complete or attempt activity 9 The patient did not perform the activity before the current illness or injury 88 Not attempted due to Medical conditions or safety concerns Toilet/Commode Transfer (FIM): 5 Other Treatment W/c mobility to therapy gym without assist. Arm bike x12 minutes to increase overall strength and activity tolerance needed for functional tasks. Pt completed task with moderate resistance and steady pace. No rest breaks needed. Pt performed UE exercises to increase strength for ADLs and transfers. Pt performed left shoulder flexion and abduction x10 reps with 3# weight. Bilateral elbow flex/ext x15 reps with 3# weight. rest breaks between exercises. Pt performed transfers w/c <-> edge of mat to increase safety for transfers. Pt able to complete transfers with SBA and cues for safety. Pt sitting in w/c in room with needs met after session. OT Short Term Goals Short Term Goals Time Frame: Jun 17, 2019 Transfers (B,C,W/C) (FIM): 4 (CGA) 1=Demonstrate adherence to instructed precautions during ADL tasks. 2=Patient will verbalize/demonstrate understanding of assistive devic es/modifications for ADL. 3=Patient will improve strength/tolerance for activity to enable patient to perform ADL's. OT Computer Networker Goals Computer Networker Goals Time Frame: Jul 01, 2019 Eating (FIM): 7 Eating (QC): 7 Groomin Oral Hygiene (QC): 6 Bathing(FIM): 7 Shower/Bathe Self (QC): 6 Upper Body Dressing(FIM): 7 Upper Body Dressing (QC): 6 Lower Body Dressing(FIM): 7 Lower Body Dressing (QC): 6 Toileting(FIM): 7 Toileting Hygiene (QC): 6 Toilet/Commode Transfer(FIM): 6 Toilet/Commode Transfer (QC): 6 Shower Transfer(FIM): 6 Comprehension(FIM): 7 Expression (FIM): 7 Social Interaction(FIM): 7 Problem Solving(FIM): 7 Memory(FIM): 7 Additional Goals: 1-Demonstrate ADL Tasks, 2-Verbalize Understanding, 3- ImproveStrength/Fabián 1=Demonstrate adherence to instructed precautions during ADL tasks. 2=Patient will verbalize/demonstrate understanding of assistive devices/modifications for ADL. 3=Patient will improve strength/tolerance for activity to enable patient to perform ADL's. OT Education/Plan Discharge Recommendations Plan/Recommendations: Continue POC Treatment Plan/Plan of Care Patient would benefit from OT for education, treatment and training to promote independence in ADL's, mobility, safety and/or upper extremity function for ADL's. Plan of Care: ADL Retraining, Functional Mobility, Group Exercise/Act as Ind, UE Funct Exercise/Act Treatment Duration: Jul 01, 2019 Frequency: At least 5 of 7 days/Wk (IRF) Estimated Hrs Per Day: 1.5 hours per day Rehab Potential: Fair Time/GCodes Start Time: 09:00 Stop Time: 10:00 Total Time Billed (hr/min): 60 Billed Treatment Time 1 visit, FA(30minutes), EX(30minutes) NIKKI TAFOYA OT Jun 13, 2019 12:55
--- NOTE | 2019-06-13 14:46 | Therapy Group Daily Note ---
Therapy Daily Group Note Patient Education Topic Other List Below (memory) Session Ratio (pt:therapist): 4:1 Goal of Session: Memory Strategies Goal Met for this Session: Yes Pt Benefit of Group: Contributions to Others, Improved Cognition, Recognition of Peers, Socialization Other/Notes Pt propelled w/c to [facility] for OT/PT group. Group consisted of introductions (name, place living, love water? Why?), socialization, educational topic of memory and memory activities. Pt introduced self correctly and actively listened to peers. Pt acknowledged educational topic and was able to verbalize personal strategies and memory exercises that can be completed to increase STM. Pt was able to participate in memory activity fully and demonstrated good memory techniques. After group, pt propelled w/c to room to lay in bed. Call light/phone in reach. All needs met in room. Start Time: 13:00 Stop Time: 14:10 Total Billed Treatment Time: 70 Total Billed Treatment 1-GRP SHANTANU SORIANO Jun 13, 2019 14:46
[2019-06-13 16:00] VITALS: BP 116/84
[2019-06-13] MEDS: ATORVASTATIN 40 MG (LIPITOR) TABLET PO SCH (21:42)
[2019-06-13] MEDS: PANTOPRAZOLE 40 MG (PROTONIX) TAB PO SCH (21:43)
[2019-06-13] MEDS: BACLOFEN 10 MG (LIORESAL) TAB PO PRN (21:43)
[2019-06-14] MEDS: HYDROcodone/APAP 5 MG/325 MG (LORTAB) TAB PO PRN ×4 (03:51→20:47)
[2019-06-14] MEDS: ENOXAPARIN 40 MG/0.4 ML (LOVENOX) SYR SC SCH ×2 (06:18→17:39)
[2019-06-14] MEDS: glipiZIDE 5 MG (GLUCOTROL) TAB PO SCH (06:18)
[2019-06-14 06:40] VITALS: BP 127/81
[2019-06-14] MEDS: inSUlin ASPART (NovoLOG) 1 UNIT/0.01 ML (CHARGE PER UNIT) SC SCH ×3 (06:44→18:09)
[2019-06-14] MEDS: GABAPENTIN 600 MG (NEURONTIN) TAB PO SCH ×3 (08:59→21:36)
[2019-06-14] MEDS: ASPIRIN 81 MG CHEW (CHILDREN'S ASA) PO SCH (08:59)
[2019-06-14] MEDS: DOCUSATE SODIUM 100 MG (COLACE) CAP PO SCH ×2 (09:02→21:36)
[2019-06-14] MEDS: CYCLOBENZAPRINE 10 MG (FLEXERIL) TAB PO PRN ×2 (09:02→15:54)
[2019-06-14] MEDS: SENNA W/DOCUSATE (SENOKOT S) TABLET PO SCH ×2 (09:03→21:35)
[2019-06-14] MEDS: POLYETHYLENE GLYCOL 17 GM (MIRALAX) PACK PO SCH ×2 (09:03→21:35)
[2019-06-14] MEDS: LACTULOSE SYRUP 10GM/15ML (ENULOSE) 30ML UDC PO SCH ×2 (09:03→21:35)
[2019-06-14] MEDS: ADVAIR HFA 115/21 MCG INHALER 8 GM IH SCH ×2 (09:09→20:39)
--- NOTE | 2019-06-14 11:41 | PM&R Progress Note ---
Subjective HPI/CC On Admission Date Seen by Provider: Jun 14, 2019 Time Seen by Provider: 11:00 Per Med-Surg consultation 06/06/19: Chief complaint: Status post uncomplicated left below the knee amputation History present illness: This is a 54-year-old white male clinic patient of [facility] with a past medical history of morbid obesity in addition to diabetes who presents following an uncomplicated left below the knee amputation. 5 other partial amputations had been performed that resulted in remaining nonhealing ulcerations so the decision was made to complete the amputation in order to facilitate healing and placement of a prosthesis. At this current time patient reports muscle spasms so I did order baclofen. He use to have home oxygen but he stopped wearing it. He appears to have high risk for sleep apnea. I have restarted all of his home medications and will initiate PT and OT orders and place inpatient rehabilitation eval. He quit smoking 5 weeks ago with the help of Chantix. Chief complaint: Left below the knee amputation in need of rehab for help with transfers to and from wheelchair and use of prosthesis History of present illness: This is a 54-year-old white male known to me from consultation last week requested by Dr. Worley following a left below the knee amputation by Dr. Worley on 06/06/2019. He had an uneventful week pain was well controlled with narcotic pain medication in addition to baclofen. Bowel regimen maintained but slow transit constipation on a chronic basis precluded anything of results on that organ system so will work aggressively during inpatient rehab course for bowel evacuation. He does have a history of ESBL UTI in July 2018. Blood sugars have been well controlled on his home insulin regimen and has been maintained on Lovenox for DVT prophylaxis. Labs have been monitored closely and to note he definitely needs intensive therapy and techniques from physical therapy because he has a previous right below the knee amputation in the remote past. At this current time patient reports that his pain is well controlled there is a question of some blister and drainage on his stump so will evaluate that with general surgery consultation. I checked his meds and labs and restored all orders and will monitor patient closely due to his significant comorbidities. His prior level of functioning was the use of a right leg prosthesis and now he has bilateral below the knee amputations so will need wheelchair transfer work along with ADL independent techniques. Subjective/Events-last exam Wore oxygen last night BM + Lactulose and MiraLax are still being given when he allows. Stump was assessed by Dr. Ballesteros, no evidence of any cellulitis or any need for any type of surgical procedure. Lortab helps pain Checked meds and labs. Overall improving immensely and is very optimistic about his discharge planning. Wants ad trevon but PT has not approved that Conferred with RN Reviewed therapy notes Review of Systems Musculoskeletal: leg pain Objective Exam Vital Signs Vital Signs Date Time Temp Pulse Resp B/P (MAP) Pulse Ox O2 Delivery O2 Flow Rate FiO2 06/14/19 09:35 Room Air 06/14/19 09:09 92 06/14/19 06:40 97.5 75 22 127/81 (96) 06/13/19 21:05 2.00 Capillary Refill : General Appearance: No Apparent Distress, WD/WN, Chronically ill, Obese HEENT: PERRL/EOMI, Normal ENT Inspection, Pharynx Normal, Moist Mucous Membranes Neck: Full Range of Motion, Normal Inspection, Non Tender, Supple Respiratory: Chest Non Tender, Lungs Clear, Normal Breath Sounds, No Accessory Muscle Use, No Respiratory Distress, Decreased Breath Sounds Cardiovascular: Regular Rate, Rhythm, No Edema, No Gallop, No JVD, No Murmur Gastrointestinal: Normal Bowel Sounds, No Organomegaly, No Pulsatile Mass, Non Tender, Soft Back: Normal Inspection, No CVA Tenderness, No Vertebral Tenderness Extremity: Normal Capillary Refill, Normal Inspection, Normal Range of Motion (bilateral amputations) Neurologic/Psychiatric: Alert, Oriented x3, No Motor/Sensory Deficits, Normal Mood/Affect, core extruder II-XII Norm as Tested, Motor Weakness (decreased ROM thighs due to BKA's) Skin: Normal Color, Warm/Dry Lymphatic: No Adenopathy Results/Procedures Lab Patient resulted labs reviewed. FIM Transfers Therapy Code Descriptions/Definitions Functional [place] Measure: 0=Not Assessed/NA 4=Minimal Assistance 1=Total Assistance 5=Supervision or Setup 2=Maximal Assistance 6=Modified [place] 3=Moderate Assistance 7=Complete [place] Therapy Quality Codes: 6 Independent with activity with or without an assistive device 5 Patient requires set up or clean up by helper. Patient completes activity by themselves 4 Supervision or touching assist (CGA). [place] provide cues , steadying assist 3 The helper provides less than half the effort to complete the activity 2 The helper provides more than half the effort to complete the activity 1 Dependent. The helper does all the effort to complete an activity 7 Patient refused to complete or attempt activity 9 The patient did not perform the activity before the current illness or injury 88 Not attempted due to Medical conditions or safety concerns Transfers (B, C, W/C) (FIM): 4 Scootin Rollin Roll Left to Right (QC): 5 Supine to/from Sit: 6 (quited the effort for pt.) Sit to/from Stand: 4 (precarious) Sit to Lying (QC): 5 Sit to Stand (QC): 5 Chair/Rxz-ct-Mwiyn Xfer(QC): 5 Bed to/from Chair: 4 Car Transfer (QC): 4 Gait Training Does the Patient Walk?: No and Walking Goal IS indicated Wheelchair Training Does the Pt Use a Wheelchair?: Yes Wheelchair (FIM): 6 Wheelchair Distance: 3=150 ft (400x2) Distance: 175' Wheelchair Level of Assist: 6 Wheel 50 ft with 2 turns (QC): 6 Wheel 150 ft (QC): 6 Type of Wheelchair: Manual Mental Status/Objective Comprehension: 7 Expression: 7 Social Interaction: 7 Problem Solvin Memory: 7 ADL-Treatment Feedin Eating (QC): 6 Groomin Oral Hygiene (QC): 5 Bathin Shower/Bathe Self (QC): 4 Upper Extremity Dressin Upper Body Dressing (QC): 5 Lower Extremity Dressin Lower Body Dressing (QC): 3 On/Off Footwear (QC): 88 (bilateral BKA) Toilet/Commode Transfer: 5 Shower: 5 Assessment/Plan Assessment and Plan Assess & Plan/Chief Complaint Assessment: Status post uncomplicated left below the knee amputation POD # 7 Hypertension Obesity Diabetes mellitus Acute muscle spasms ordered baclofen Presumed obstructive sleep apnea Recent smoking cessation with the help of Chantix Plan: Restarted all home meds PT and OT Rehabilitation consult Continue smoking cessation Pain control Baclofen for muscle spasms Dr Ballesteros to monitor redness on left stump but that appears to be healing Monitor lung closely (1) Amputation of left lower extremity below knee (2) Peripheral vascular disease (3) IDDM (insulin dependent diabetes mellitus) (4) Chronic pain (5) Hypertension (6) Hyperlipidemia (7) BMI 40.0-44.9, adult (8) DVT prophylaxis (9) Debility (10) Tobacco use (11) Marijuana use SARAHY SANTANA DO Jun 14, 2019 11:41
--- NOTE | 2019-06-14 12:17 | Physical Therapy Daily Note ---
PT Daily Note-Current Subjective Pt. 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 States he changed the shoe in his prosthesis and feels he will stand better. Pain Location: No Pain Reported Mental Status Patient Orientation: Normal For Age Attachments: Other-See Comments (prosthesis RLE) Transfers Therapy Code Descriptions/Definitions Functional [place] Measure: 0=Not Assessed/NA 4=Minimal Assistance 1=Total Assistance 5=Supervision or Setup 2=Maximal Assistance 6=Modified [place] 3=Moderate Assistance 7=Complete [place] Therapy Quality Codes: 6 Independent with activity with or without an assistive device 5 Patient requires set up or clean up by helper. Patient completes activity by themselves 4 Supervision or touching assist (CGA). [place] provide cues , steadying assist 3 The helper provides less than half the effort to complete the activity 2 The helper provides more than half the effort to complete the activity 1 Dependent. The helper does all the effort to complete an activity 7 Patient refused to complete or attempt activity 9 The patient did not perform the activity before the current illness or injury 88 Not attempted due to Medical conditions or safety concerns Transfers (B, C, W/C) (FIM): 5 Scootin Rollin Supine to/from Sit: 6 Bed to/from Chair: 5 pt. with precarious movements and TRF style tells this DIRECTOR OF ENTERPRISE STRATEGY several times he does not want the gait belt and does not want this DIRECTOR OF ENTERPRISE STRATEGY to stand near as he TRFs. Wheelchair Training Type of Wheelchair: Manual ad trevon with w/c mob Exercises Supine Ex: Quad Set, Rolling, Glut sets, Heel Slides, Scooting, Straight leg raise, Hip abd/add Supine Reps: 20 (sup and prone hip ext and ham curls) pt. sup for leg hanging off Rx table for hip flexor stretch Treatments stood in parallel bars x 2 30 to 45 sec each trial, CGA and asking DIRECTOR OF ENTERPRISE STRATEGY to step back, pt. takes short hops up down, no real stability toward gait Assessment Current Status: Good Progress gives full effort PT Short Term Goals Short Term Goals Time Frame: Jun 17, 2019 Transfers (B,C,W/C) (FIM): 4 (CGA) Gait (FIM): 1 Gait Distance Comment: 5' Gait Level of Assist: 4 Gait Assistive Device: FWW Wheelchair Distance: 175' PT Primary Care Physician Goals Primary Care Physician Goals PT Primary Care Physician Goals Time Frame: Jul 01, 2019 Transfers (B,C,W/C) (FIM): 5 Sit to Lying (QC): 6 Lying-Sitting on Side/Bed(QC): 6 Sit to Stand (QC): 5 Rollin Roll Left to Right (QC): 6 Chair/Ouh-lz-Uwaml Xfer(QC): 4 Car Transfer (QC): 4 Gait (FIM): 7 Distance: 10' Walk 10 feet (QC): 4 Walk 10ft-Uneven Surface(QC): 4 Gait Level of Assist: 4 Gait Assistive Device: FWW Wheelchair Level of Assist: 6 Wheel 50 feet with 2 turns (QC: 6 PT Plan Treatment/Plan Treatment Plan: Continue Plan of Care Treatment Plan: Bed Mobility, Concurrent Therapy, Education, Functional Activity Fabián, Functional Strength, Group Therapy, Gait, Safety, Therapeutic Exercise, Transfers Treatment Duration: Jul 01, 2019 Frequency: At least 5 of 7 days/Wk (IRF) Estimated Hrs Per Day: 1.5 hours per day Patient and/or Family Agrees t: Yes Safety Risks/Education Patient Education: Transfer Techniques, Correct Positioning, Safety Issues Teaching Recipient: Patient Teaching Methods: Demonstration, Discussion Response to Teaching: Verbalize Understanding, Return Demonstration, Reinforcement Needed Time/GCodes Time In: 935 Time Out: 1000 Total Billed Treatment Time: 25 Total Billed Treatment 1,FA15m,EX10m G Codes Necessary: HUSSEIN Farley DIRECTOR OF ENTERPRISE STRATEGY Jun 14, 2019 12:16
--- NOTE | 2019-06-14 12:38 | NUR ---
Ok to SUSAN Felipe per Dr. Deluna.
[2019-06-14 18:00] VITALS: BP 121/72
[2019-06-14] MEDS: PANTOPRAZOLE 40 MG (PROTONIX) TAB PO SCH (21:36)
[2019-06-14] MEDS: ATORVASTATIN 40 MG (LIPITOR) TABLET PO SCH (21:36)
[2019-06-14] MEDS: BACLOFEN 10 MG (LIORESAL) TAB PO PRN (21:36)
[2019-06-15] MEDS: HYDROcodone/APAP 5 MG/325 MG (LORTAB) TAB PO PRN ×4 (03:17→20:21)
[2019-06-15 05:42] VITALS: BP 127/61
[2019-06-15] MEDS: CYCLOBENZAPRINE 10 MG (FLEXERIL) TAB PO PRN ×2 (06:30→14:02)
[2019-06-15] MEDS: ENOXAPARIN 40 MG/0.4 ML (LOVENOX) SYR SC SCH ×2 (06:31→17:30)
[2019-06-15] MEDS: inSUlin ASPART (NovoLOG) 1 UNIT/0.01 ML (CHARGE PER UNIT) SC SCH ×3 (06:31→17:27)
[2019-06-15] MEDS: glipiZIDE 5 MG (GLUCOTROL) TAB PO SCH (06:31)
[2019-06-15] MEDS: ADVAIR HFA 115/21 MCG INHALER 8 GM IH SCH ×2 (07:25→19:35)
[2019-06-15] MEDS: LACTULOSE SYRUP 10GM/15ML (ENULOSE) 30ML UDC PO SCH ×2 (08:57→20:23)
[2019-06-15] MEDS: ASPIRIN 81 MG CHEW (CHILDREN'S ASA) PO SCH (08:57)
[2019-06-15] MEDS: GABAPENTIN 600 MG (NEURONTIN) TAB PO SCH ×3 (08:57→20:21)
[2019-06-15] MEDS: SENNA W/DOCUSATE (SENOKOT S) TABLET PO SCH ×2 (08:58→20:23)
[2019-06-15] MEDS: DOCUSATE SODIUM 100 MG (COLACE) CAP PO SCH ×2 (08:58→20:23)
[2019-06-15] MEDS: POLYETHYLENE GLYCOL 17 GM (MIRALAX) PACK PO SCH ×2 (08:58→20:23)
--- NOTE | 2019-06-15 11:34 | PM&R Progress Note ---
Subjective HPI/CC On Admission Date Seen by Provider: Jun 15, 2019 Time Seen by Provider: 10:10 Per Med-Surg consultation 06/06/19: Chief complaint: Status post uncomplicated left below the knee amputation History present illness: This is a 54-year-old white male clinic patient of [facility] with a past medical history of morbid obesity in addition to diabetes who presents following an uncomplicated left below the knee amputation. 5 other partial amputations had been performed that resulted in remaining nonhealing ulcerations so the decision was made to complete the amputation in order to facilitate healing and placement of a prosthesis. At this current time patient reports muscle spasms so I did order baclofen. He use to have home oxygen but he stopped wearing it. He appears to have high risk for sleep apnea. I have restarted all of his home medications and will initiate PT and OT orders and place inpatient rehabilitation eval. He quit smoking 5 weeks ago with the help of Chantix. Chief complaint: Left below the knee amputation in need of rehab for help with transfers to and from wheelchair and use of prosthesis History of present illness: This is a 54-year-old white male known to me from consultation last week requested by Dr. Worley following a left below the knee amputation by Dr. Worley on 06/06/2019. He had an uneventful week pain was well controlled with narcotic pain medication in addition to baclofen. Bowel regimen maintained but slow transit constipation on a chronic basis precluded anything of results on that organ system so will work aggressively during inpatient rehab course for bowel evacuation. He does have a history of ESBL UTI in July 2018. Blood sugars have been well controlled on his home insulin regimen and has been maintained on Lovenox for DVT prophylaxis. Labs have been monitored closely and to note he definitely needs intensive therapy and techniques from physical therapy because he has a previous right below the knee amputation in the remote past. At this current time patient reports that his pain is well controlled there is a question of some blister and drainage on his stump so will evaluate that with general surgery consultation. I checked his meds and labs and restored all orders and will monitor patient closely due to his significant comorbidities. His prior level of functioning was the use of a right leg prosthesis and now he has bilateral below the knee amputations so will need wheelchair transfer work along with ADL independent techniques. Subjective/Events-last exam Wore oxygen last night as he does at home BM + Lactulose and MiraLax are still being given when he allows. Stump was assessed by Dr. Ballesteros, no evidence of any cellulitis or any need for any type of surgical procedure. Lortab helps pain and no changes required Checked meds and labs. Overall improving immensely and is very optimistic about his discharge planning. Wants ad trevon but PT has not approved that Conferred with RN Reviewed therapy notes Review of Systems General: Fatigue Musculoskeletal: leg pain Objective Exam Vital Signs Vital Signs Date Time Temp Pulse Resp B/P (MAP) Pulse Ox O2 Delivery O2 Flow Rate FiO2 06/15/19 09:59 Room Air 06/15/19 07:27 93 06/15/19 05:42 96.5 80 20 127/61 (83) 06/14/19 21:00 1.00 Capillary Refill : General Appearance: No Apparent Distress, WD/WN, Chronically ill, Obese HEENT: PERRL/EOMI, Normal ENT Inspection, Pharynx Normal, Moist Mucous Membranes Neck: Full Range of Motion, Normal Inspection, Non Tender, Supple Respiratory: Chest Non Tender, Lungs Clear, Normal Breath Sounds, No Accessory Muscle Use, No Respiratory Distress, Decreased Breath Sounds Cardiovascular: Regular Rate, Rhythm, No Edema, No Gallop, No JVD, No Murmur Gastrointestinal: Normal Bowel Sounds, No Organomegaly, No Pulsatile Mass, Non Tender, Soft Back: Normal Inspection, No CVA Tenderness, No Vertebral Tenderness Extremity: Normal Capillary Refill, Normal Inspection, Normal Range of Motion (bilateral amputations) Neurologic/Psychiatric: Alert, Oriented x3, No Motor/Sensory Deficits, Normal Mood/Affect, address change clerk II-XII Norm as Tested, Motor Weakness (decreased ROM thighs due to BKA's) Skin: Normal Color, Warm/Dry Lymphatic: No Adenopathy Results/Procedures Lab Patient resulted labs reviewed. FIM Transfers Therapy Code Descriptions/Definitions Functional [place] Measure: 0=Not Assessed/NA 4=Minimal Assistance 1=Total Assistance 5=Supervision or Setup 2=Maximal Assistance 6=Modified [place] 3=Moderate Assistance 7=Complete [place] Therapy Quality Codes: 6 Independent with activity with or without an assistive device 5 Patient requires set up or clean up by helper. Patient completes activity by themselves 4 Supervision or touching assist (CGA). [place] provide cues , steadying assist 3 The helper provides less than half the effort to complete the activity 2 The helper provides more than half the effort to complete the activity 1 Dependent. The helper does all the effort to complete an activity 7 Patient refused to complete or attempt activity 9 The patient did not perform the activity before the current illness or injury 88 Not attempted due to Medical conditions or safety concerns Transfers (B, C, W/C) (FIM): 5 Scootin Rollin Roll Left to Right (QC): 5 Supine to/from Sit: 6 Sit to/from Stand: 4 (precarious) Sit to Lying (QC): 5 Sit to Stand (QC): 5 Chair/Ctd-ct-Omgum Xfer(QC): 5 Bed to/from Chair: 5 Car Transfer (QC): 4 Gait Training Does the Patient Walk?: No and Walking Goal IS indicated Wheelchair Training Does the Pt Use a Wheelchair?: Yes Wheelchair (FIM): 6 Wheelchair Distance: 3=150 ft (400x2) Distance: 175' Wheelchair Level of Assist: 6 Wheel 50 ft with 2 turns (QC): 6 Wheel 150 ft (QC): 6 Type of Wheelchair: Manual Mental Status/Objective Comprehension: 7 Expression: 7 Social Interaction: 7 Problem Solvin Memory: 7 ADL-Treatment Feedin Eating (QC): 6 Groomin Oral Hygiene (QC): 5 Bathin Shower/Bathe Self (QC): 4 Upper Extremity Dressin Upper Body Dressing (QC): 5 Lower Extremity Dressin Lower Body Dressing (QC): 3 On/Off Footwear (QC): 88 (bilateral BKA) Toilet/Commode Transfer: 5 Shower: 5 Assessment/Plan Assessment and Plan Assess & Plan/Chief Complaint Assessment: Status post uncomplicated left below the knee amputation POD # 8 Hypertension Obesity Diabetes mellitus Acute muscle spasms ordered baclofen Presumed obstructive sleep apnea Recent smoking cessation with the help of Chantix Plan: Restarted all home meds PT and OT Rehabilitation consult Continue smoking cessation Pain control Baclofen for muscle spasms Dr Ballesteros monitoring stump Monitor lung closely (1) Amputation of left lower extremity below knee (2) Peripheral vascular disease (3) IDDM (insulin dependent diabetes mellitus) (4) Chronic pain (5) Hypertension (6) Hyperlipidemia (7) BMI 40.0-44.9, adult (8) DVT prophylaxis (9) Debility (10) Tobacco use (11) Marijuana use SARAHY SANTANA DO Jun 15, 2019 11:34
--- NOTE | 2019-06-15 12:33 | NUR ---
Dr. Keen to floor. teacher physically impaired for Surgery. This RN voiced concerns about redness to left BKA incision and continued serosanguineous drainage. States that Dr. Worley will be back tomorrow.
[2019-06-15 17:14] VITALS: BP 146/76
[2019-06-15] MEDS: ATORVASTATIN 40 MG (LIPITOR) TABLET PO SCH (20:21)
[2019-06-15] MEDS: PANTOPRAZOLE 40 MG (PROTONIX) TAB PO SCH (20:21)
[2019-06-15] MEDS: BACLOFEN 10 MG (LIORESAL) TAB PO PRN (20:21)
[2019-06-16] MEDS: CYCLOBENZAPRINE 10 MG (FLEXERIL) TAB PO PRN ×3 (01:41→17:51)
[2019-06-16] MEDS: HYDROcodone/APAP 5 MG/325 MG (LORTAB) TAB PO PRN ×5 (01:42→20:24)
[2019-06-16 05:06] VITALS: BP 131/82
[2019-06-16] MEDS: glipiZIDE 5 MG (GLUCOTROL) TAB PO SCH (05:53)
[2019-06-16] MEDS: inSUlin ASPART (NovoLOG) 1 UNIT/0.01 ML (CHARGE PER UNIT) SC SCH ×3 (05:53→17:23)
[2019-06-16] MEDS: ENOXAPARIN 40 MG/0.4 ML (LOVENOX) SYR SC SCH ×2 (05:53→17:50)
[2019-06-16] MEDS: ADVAIR HFA 115/21 MCG INHALER 8 GM IH SCH ×2 (08:18→18:32)
--- NOTE | 2019-06-16 08:27 | PM&R Progress Note ---
Subjective HPI/CC On Admission Date Seen by Provider: Jun 16, 2019 Time Seen by Provider: 08:30 Per Med-Surg consultation 06/06/19: Chief complaint: Status post uncomplicated left below the knee amputation History present illness: This is a 54-year-old white male clinic patient of [facility] with a past medical history of morbid obesity in addition to diabetes who presents following an uncomplicated left below the knee amputation. 5 other partial amputations had been performed that resulted in remaining nonhealing ulcerations so the decision was made to complete the amputation in order to facilitate healing and placement of a prosthesis. At this current time patient reports muscle spasms so I did order baclofen. He use to have home oxygen but he stopped wearing it. He appears to have high risk for sleep apnea. I have restarted all of his home medications and will initiate PT and OT orders and place inpatient rehabilitation eval. He quit smoking 5 weeks ago with the help of Chantix. Chief complaint: Left below the knee amputation in need of rehab for help with transfers to and from wheelchair and use of prosthesis History of present illness: This is a 54-year-old white male known to me from consultation last week requested by Dr. Worley following a left below the knee amputation by Dr. Worley on 06/06/2019. He had an uneventful week pain was well controlled with narcotic pain medication in addition to baclofen. Bowel regimen maintained but slow transit constipation on a chronic basis precluded anything of results on that organ system so will work aggressively during inpatient rehab course for bowel evacuation. He does have a history of ESBL UTI in July 2018. Blood sugars have been well controlled on his home insulin regimen and has been maintained on Lovenox for DVT prophylaxis. Labs have been monitored closely and to note he definitely needs intensive therapy and techniques from physical therapy because he has a previous right below the knee amputation in the remote past. At this current time patient reports that his pain is well controlled there is a question of some blister and drainage on his stump so will evaluate that with general surgery consultation. I checked his meds and labs and restored all orders and will monitor patient closely due to his significant comorbidities. His prior level of functioning was the use of a right leg prosthesis and now he has bilateral below the knee amputations so will need wheelchair transfer work along with ADL independent techniques. Subjective/Events-last exam Pt ready to go home and it appears he will be ready Wed Stump will be evaluated by Dr. Worley Sutures and uyen still remain with some blisters Oxygen of 1 liter at night Transfers himself very well BM last night Conferred with RN Reviewed therapy notes Review of Systems Musculoskeletal: leg pain Objective Exam Vital Signs Vital Signs Date Time Temp Pulse Resp B/P (MAP) Pulse Ox O2 Delivery O2 Flow Rate FiO2 06/16/19 18:33 93 Room Air 06/16/19 16:22 97.0 71 16 105/63 (77) 06/15/19 20:37 1.00 Capillary Refill : General Appearance: No Apparent Distress, WD/WN, Chronically ill, Obese HEENT: PERRL/EOMI, Normal ENT Inspection, Pharynx Normal, Moist Mucous Membranes Neck: Full Range of Motion, Normal Inspection, Non Tender, Supple Respiratory: Chest Non Tender, Lungs Clear, Normal Breath Sounds, No Accessory Muscle Use, No Respiratory Distress, Decreased Breath Sounds Cardiovascular: Regular Rate, Rhythm, No Edema, No Gallop, No JVD, No Murmur Gastrointestinal: Normal Bowel Sounds, No Organomegaly, No Pulsatile Mass, Non Tender, Soft Back: Normal Inspection, No CVA Tenderness, No Vertebral Tenderness Extremity: Normal Capillary Refill, Normal Inspection, Normal Range of Motion (bilateral amputations) Neurologic/Psychiatric: Alert, Oriented x3, No Motor/Sensory Deficits, Normal Mood/Affect, precision assembler II-XII Norm as Tested, Motor Weakness (decreased ROM thighs due to BKA's) Skin: Normal Color, Warm/Dry Lymphatic: No Adenopathy Results/Procedures Lab Patient resulted labs reviewed. FIM Transfers Therapy Code Descriptions/Definitions Functional [place] Measure: 0=Not Assessed/NA 4=Minimal Assistance 1=Total Assistance 5=Supervision or Setup 2=Maximal Assistance 6=Modified [place] 3=Moderate Assistance 7=Complete [place] Therapy Quality Codes: 6 Independent with activity with or without an assistive device 5 Patient requires set up or clean up by helper. Patient completes activity by themselves 4 Supervision or touching assist (CGA). [place] provide cues , steadying assist 3 The helper provides less than half the effort to complete the activity 2 The helper provides more than half the effort to complete the activity 1 Dependent. The helper does all the effort to complete an activity 7 Patient refused to complete or attempt activity 9 The patient did not perform the activity before the current illness or injury 88 Not attempted due to Medical conditions or safety concerns Transfers (B, C, W/C) (FIM): 5 Scootin Rollin Roll Left to Right (QC): 5 Supine to/from Sit: 6 Sit to/from Stand: 4 (precarious) Sit to Lying (QC): 5 Sit to Stand (QC): 5 Chair/Ggf-dv-Biapv Xfer(QC): 5 Bed to/from Chair: 5 Car Transfer (QC): 4 Gait Training Does the Patient Walk?: No and Walking Goal IS indicated Wheelchair Training Does the Pt Use a Wheelchair?: Yes Wheelchair (FIM): 6 Wheelchair Distance: 3=150 ft (400x2) Distance: 175' Wheelchair Level of Assist: 6 Wheel 50 ft with 2 turns (QC): 6 Wheel 150 ft (QC): 6 Type of Wheelchair: Manual Mental Status/Objective Comprehension: 7 Expression: 7 Social Interaction: 7 Problem Solvin Memory: 7 ADL-Treatment Feedin Eating (QC): 6 Groomin Oral Hygiene (QC): 5 Bathin Shower/Bathe Self (QC): 4 Upper Extremity Dressin Upper Body Dressing (QC): 5 Lower Extremity Dressin Lower Body Dressing (QC): 3 On/Off Footwear (QC): 88 (bilateral BKA) Toilet/Commode Transfer: 5 Shower: 5 Assessment/Plan Assessment and Plan Assess & Plan/Chief Complaint Assessment: Status post uncomplicated left below the knee amputation POD # 8 Hypertension Obesity Diabetes mellitus Acute muscle spasms ordered baclofen Presumed obstructive sleep apnea Recent smoking cessation with the help of Chantix Plan: Restarted all home meds PT and OT Rehabilitation consult Continue smoking cessation Pain control Baclofen for muscle spasms Dr Ballesteros monitoring stump Monitor lung closely (1) Amputation of left lower extremity below knee (2) Peripheral vascular disease (3) IDDM (insulin dependent diabetes mellitus) (4) Chronic pain (5) Hypertension (6) Hyperlipidemia (7) BMI 40.0-44.9, adult (8) DVT prophylaxis (9) Debility (10) Tobacco use (11) Marijuana use SARAHY SANTANA DO Jun 16, 2019 08:27
[2019-06-16] MEDS: ASPIRIN 81 MG CHEW (CHILDREN'S ASA) PO SCH (09:31)
[2019-06-16] MEDS: GABAPENTIN 600 MG (NEURONTIN) TAB PO SCH ×3 (09:31→20:24)
--- NOTE | 2019-06-16 09:58 | Physical Therapy Daily Note ---
PT Daily Note-Current Subjective Patient sitting EOB pre tx, agrees to PT, has 5/10 pain in left leg. Appearance Patient in wheelchair post tx, he is now independent in his room. He performed several sliding transfers during therapy (no sliding board), he has a little difficulty moving his weight sometimes but was able to do it without incidence of fall or even the appearance of falling. He is aware that if he is tired he can ask for help during transfers. Nursing reports he has already been transferring to the toilet and bed in his room and has not had a fall. Mental Status Patient Orientation: Normal For Age Transfers Therapy Code Descriptions/Definitions Functional [place] Measure: 0=Not Assessed/NA 4=Minimal Assistance 1=Total Assistance 5=Supervision or Setup 2=Maximal Assistance 6=Modified [place] 3=Moderate Assistance 7=Complete [place] Therapy Quality Codes: 6 Independent with activity with or without an assistive device 5 Patient requires set up or clean up by helper. Patient completes activity by themselves 4 Supervision or touching assist (CGA). [place] provide cues , steadying assist 3 The helper provides less than half the effort to complete the activity 2 The helper provides more than half the effort to complete the activity 1 Dependent. The helper does all the effort to complete an activity 7 Patient refused to complete or attempt activity 9 The patient did not perform the activity before the current illness or injury 88 Not attempted due to Medical conditions or safety concerns Transfers (B, C, W/C) (FIM): 6 Scootin Rollin Supine to/from Sit: 6 Bed to/from Chair: 6 Patient stood in the parallel bars with SBA, he was able to stand on his right prosthetic leg for about 3-4 minutes before needing to sit. He cannot hop to take a step yet. Wheelchair Training Does the Pt Use a Wheelchair?: Yes Wheelchair (FIM): 6 Distance: 150'x2 Type of Wheelchair: Manual Exercises Supine Ex: Quad Set, Glut sets, Straight leg raise, Hip abd/add Supine Reps: [address] Ex=Flex, Abd, Ext (left leg), Mini squats (with right leg) prone hip stretch for 5 min, LAQ alternating for 5 min NuStep Minutes: 15 NuStep Workload: 5 Treatments bed mobility and transfers, standing, LE exercise and stretching Assessment Current Status: Fair Progress Patient is now mod I with transfers. PT Short Term Goals Short Term Goals Time Frame: Jun 17, 2019 Transfers (B,C,W/C) (FIM): 4 (CGA) Gait (FIM): 1 Gait Distance Comment: 5' Gait Level of Assist: 4 Gait Assistive Device: FWW Wheelchair Distance: 175' PT Dealer Sales Rep Goals Dealer Sales Rep Goals PT Dealer Sales Rep Goals Time Frame: Jul 01, 2019 Transfers (B,C,W/C) (FIM): 5 Sit to Lying (QC): 6 Lying-Sitting on Side/Bed(QC): 6 Sit to Stand (QC): 5 Rollin Roll Left to Right (QC): 6 Chair/Iev-vl-Pbers Xfer(QC): 4 Car Transfer (QC): 4 Gait (FIM): 7 Distance: 10' Walk 10 feet (QC): 4 Walk 10ft-Uneven Surface(QC): 4 Gait Level of Assist: 4 Gait Assistive Device: FWW Wheelchair Level of Assist: 6 Wheel 50 feet with 2 turns (QC: 6 PT Plan Problem List Problem List: Activity Tolerance, Functional Strength, Safety, Balance, Gait, Transfer, Bed Mobility, ROM Treatment/Plan Treatment Plan: Continue Plan of Care Treatment Plan: Bed Mobility, Concurrent Therapy, Education, Functional Activity Fabián, Functional Strength, Group Therapy, Gait, Safety, Therapeutic Exercise, Transfers Treatment Duration: Jul 01, 2019 Frequency: At least 5 of 7 days/Wk (IRF) Estimated Hrs Per Day: 1.5 hours per day Patient and/or Family Agrees t: Yes Safety Risks/Education Patient Education: Transfer Techniques, Correct Positioning, W/C Management, Safety Issues Teaching Recipient: Patient Teaching Methods: Demonstration, Discussion Response to Teaching: Reinforcement Needed Time/GCodes Time In: 0900 Time Out: 1000 Total Billed Treatment Time: 60 Total Billed Treatment 1 visit FA 15' EX 45' SAMMIE GUERRIER PT Jun 16, 2019 09:58
[2019-06-16] MEDS: DOCUSATE SODIUM 100 MG (COLACE) CAP PO SCH ×2 (10:00→20:29)
[2019-06-16] MEDS: SENNA W/DOCUSATE (SENOKOT S) TABLET PO SCH ×2 (10:01→20:30)
[2019-06-16] MEDS: POLYETHYLENE GLYCOL 17 GM (MIRALAX) PACK PO SCH ×2 (10:01→20:29)
[2019-06-16] MEDS: LACTULOSE SYRUP 10GM/15ML (ENULOSE) 30ML UDC PO SCH ×2 (10:01→20:29)
--- NOTE | 2019-06-16 10:33 | Occupational Ther Daily Note ---
OT Current Status-Daily Note Subjective pt sitting in w/c upon OT arrival. pt reports 5 left LE pt stated "it feels like a cramp" Mental Status/Objective Patient Orientation: Normal For Age Therapy Code Descriptions/Definitions Functional [place] Measure: 0=Not Assessed/NA 4=Minimal Assistance 1=Total Assistance 5=Supervision or Setup 2=Maximal Assistance 6=Modified [place] 3=Moderate Assistance 7=Complete [place] ADL-Treatment Therapy Code Descriptions/Definitions Functional [place] Measure: 0=Not Assessed/NA 4=Minimal Assistance 1=Total Assistance 5=Supervision or Setup 2=Maximal Assistance 6=Modified [place] 3=Moderate Assistance 7=Complete [place] Therapy Quality Codes: 6 Independent with activity with or without an assistive device 5 Patient requires set up or clean up by helper. Patient completes activity by themselves 4 Supervision or touching assist (CGA). [place] provide cues , steadying assist 3 The helper provides less than half the effort to complete the activity 2 The helper provides more than half the effort to complete the activity 1 Dependent. The helper does all the effort to complete an activity 7 Patient refused to complete or attempt activity 9 The patient did not perform the activity before the current illness or injury 88 Not attempted due to Medical conditions or safety concerns Other Treatment pt self propelled w/c to tx gym MOD I. pt education on home safety. pt stated his only concerns about returning home is completing laundry. pt stated his laundry is located in the basement of his home. pt sated he dgtr does come over weekly to do her laundry. pt education on asking dgtr to complete his laundry as well. pt agreed and stated he will ask her to do his laundry since step are not safe at this time. pt perform UBE with MOD -MAX resistance 15 minutes to increa se activity tolerance for daily activities. pt education on HEP with red theraband. handout provided to pt. pt perform 20X2 shuldr ABD, 20X2 shoulder external/ internal rotation, 20X2 shoulder horizontal ABD, 20X2 elbow flex/ ext. pt education on kitchen mobility with use of w/c/ proper positioning (oven, stove, refrigerator). pt demo correctly MOD I. pt then self propelled back to room. pt is indep in room. all needs met. Education OT Patient Education: Energy conservation, Home exercise program, Progress toward Goal/Update tx plan, Purpose of tx/functional activities, Safety issues Teaching Recipient: Patient Teaching Methods: Demonstration, Discussion Response to Teaching: Verbalize Understanding, Return Demonstration OT Short Term Goals Short Term Goals Time Frame: Jun 17, 2019 Transfers (B,C,W/C) (FIM): 4 (CGA) 1=Demonstrate adherence to instructed precautions during ADL tasks. 2=Patient will verbalize/demonstrate understanding of assistive devices/modifications for ADL. 3=Patient will improve strength/tolerance for activity to enable patient to perform ADL's. OT Cardiovascular Technologist Goals Long-Term Goals Time Frame: Jul 01, 2019 Eating (FIM): 7 Eating (QC): 7 Groomin Oral Hygiene (QC): 6 Bathing(FIM): 7 Shower/Bathe Self (QC): 6 Upper Body Dressing(FIM): 7 Upper Body Dressing (QC): 6 Lower Body Dressing(FIM): 7 Lower Body Dressing (QC): 6 Toileting(FIM): 7 Toileting Hygiene (QC): 6 Toilet/Commode Transfer(FIM): 6 Toilet/Commode Transfer (QC): 6 Shower Transfer(FIM): 6 Comprehension(FIM): 7 Expression (FIM): 7 Social Interaction(FIM): 7 Problem Solving(FIM): 7 Memory(FIM): 7 Additional Goals: 1-Demonstrate ADL Tasks, 2-Verbalize Understanding, 3- ImproveStrength/Fabián 1=Demonstrate adherence to instructed precautions during ADL tasks. 2=Patient will verbalize/demonstrate understanding of assistive devices/modifications for ADL. 3=Patient will improve strength/tolerance for activity to enable patient to perform ADL's. OT Education/Plan Problem List/Assessment Assessment: Decreased Activ Tolerance, Impaired I ADL's Discharge Recommendations Plan/Recommendations: Continue POC Therapy D/C Recommendations: Home w/ Family Support Treatment Plan/Plan of Care Treatment,Training & Education: Yes Patient would benefit from OT for education, treatment and training to promote independence in ADL's, mobility, safety and/or upper extremity function for ADL's. Plan of Care: ADL Retraining, Functional Mobility, Group Exercise/Act as Ind, UE Funct Exercise/Act Treatment Duration: Jul 01, 2019 Frequency: At least 5 of 7 days/Wk (IRF) Estimated Hrs Per Day: 1.5 hours per day Agreement: Yes Rehab Potential: Fair Time/GCodes Start Time: 10:00 Stop Time: 11:00 Billed Treatment Time EX 45 minutes, 3 units FA 15 minutes, 1 unit MATTHIEU FERNÁNDEZ OT Jun 16, 2019 10:33
--- NOTE | 2019-06-16 14:06 | NUR ---
PTValeriy stated that pt can be up ad trevon in his room, transferring self to w/c, toilet, & bed.
--- NOTE | 2019-06-16 14:42 | Therapy Group Daily Note ---
Therapy Daily Group Note Patient Education Topic Exercises Exercises LE Seated Exercise, UE Exercise Session Ratio (pt:therapist): 4:1 Goal of Session: UE/LE Strengthing Goal Met for this Session: Yes Pt Benefit of Group: Contributions to Others, F/U Use of Strategies @Home, Increased Functional Strength, Improved Cognition, Recognition of Peers, Socialization Other/Notes Pt propelled w/c to OT/PT group in [facility] area. Group consisted of introductions (name, place living, first care driven), socialization, UE/LE seated exercises, education on modifying exercises at home and different ways of incorporating everyday items for wts. Pt introduced self appropriately and actively listened to peers. Pt acknowledged understanding of educational topics by leading own exercise and verbalizing strategies to modify at home. After therapy, pt sitting in w/c with call light/phone in reach. All needs met in room. Start Time: 13:00 Stop Time: 14:10 Total Billed Treatment Time: 70 Total Billed Treatment 1-GRP SHANTANU SORIANO Jun 16, 2019 14:42
[2019-06-16] MEDS ORDERED: DICL100G18 TOP (16:01)
[2019-06-16] MEDS ORDERED: CYCL10TA9 PO (16:01)
[2019-06-16] MEDS ORDERED: ACHD5005 PO (16:01)
--- NOTE | 2019-06-16 16:03 | D/C HH Face to Face Order ---
D/C Face to Face Orders Reconcile Patient Problems Problems Reviewed?: Yes Instructions for Patient Via [facility], Patient Instructions/FollowUp: [facility] 06/19/19 at 400pm Physician to follow Patient: [facility] Discharge Diet for Home: ADA Diet Patient Problems: Left BKA h/o right BKA DM HTN Patient Data-Allergies,Ht & Wt Patient Allergies: Coded Allergies: pregabalin (Unverified Allergy, Severe, FEVER, 04/26/15) Height (Feet): 6 Height (Inches): 4.00 Weight (Pounds): 369 Weight (Ounces): 14.4 Home Health Need/Face to Face Date of Face to Face: Jun 16, 2019 Clinical Findings: Non or partial weight bearing, Unsteady gait I have seen Pt [id number]: Yes Discharged To: Home Diagnosis/Conditions: Left BKA h/o right BKA DM HTN Patient is Homebound due to: Ja fall risk due to instabilty, Pain w/ambulation Homebound Status Due to the above stated illness, injury or surgical procedure (medical condition or diagnosis) and associated clinical findings, the patient is homebound because of his/her inability to leave home except with aid of a supportive device and/or person AND leaving the home requires a considerable and taxing effort or is medically contraindicated. Pt req the following assistanc: Aid of another person, Wheelchair Home Health Nursing Orders Home Health Services Order: Nursing Services (evaluate the left stump), Fire Pot Operator-Evaluate & Treat, Physical Therapy-Evaluate & Treat Certify Stmt I certify that this patient is under my care and that I, a nurse practitioner or a physician; a human resources office assistant working with me, had a face to face encounter that - meets the physician face to face encounter requirements with this patient as dated. SARAHY SANTANA DO Jun 16, 2019 16:03
[2019-06-16 16:22] VITALS: BP 105/63
--- NOTE | 2019-06-16 16:54 | NUR ---
MITOCHONDRIAL DISORDERS COUNSELOR met with team to discuss patient's progress. PT would like an additional days for further strengthening, but patient is eager to return home. Patient is progressing well with therapies and should be appropriate for discharge on with home health services. Dr. Deluna is in agreement with this plan. Patient previously utilized [facility] has selected this provider again for discharge. MITOCHONDRIAL DISORDERS COUNSELOR will reach out to [facility] [facility] to arrange new referral.
--- NOTE | 2019-06-16 19:10 | NUR ---
BEDSIDE REPORT RECEIVED FROM BRIAN RODRIGUEZ, ASSUME CARE OF PT
--- NOTE | 2019-06-16 19:32 | NUR ---
HERE TOOK DRESSING OFF TO ASSESS WOUND, ORDERS RECEIVED FOR KEFLEX 500MG TID, DRESSING APPLIED TO LEFT STUMP WOUND
[2019-06-16] MEDS: CEPHALEXIN 250 MG (KEFLEX) CAP PO SCH (20:23)
[2019-06-16] MEDS: PANTOPRAZOLE 40 MG (PROTONIX) TAB PO SCH (20:23)
--- NOTE | 2019-06-16 20:24 | NUR ---
C/O LT STUMP PAIN LEVEL 6/10 ON NUMERIC SCALE, LORTAB 5 1 TAB PO GIVEN WITH LIORESAL 5MG
--- NOTE | 2019-06-16 20:25 | NUR ---
ASSESSMENTS & INTERVENTIONS COMPLETED, SEE ASSESSMENTS & INTERVENTIONS
[2019-06-16] MEDS: ATORVASTATIN 40 MG (LIPITOR) TABLET PO SCH (20:26)
[2019-06-16] MEDS: BACLOFEN 10 MG (LIORESAL) TAB PO PRN (20:37)
--- NOTE | 2019-06-16 20:49 | Progress Note - Surgery ---
Subjective Date Seen by a Provider: Jun 16, 2019 Time Seen by a Provider: 20:46 Subjective/Events-last exam patient is doing okay. Patient states that he had some blisters form on his left portion of his stump otherwise doing okay. Has some slight erythema to the area but minimal. Pain is controlled. No other complaints at this time. Objective Exam Vital Signs Date Time Temp Pulse Resp B/P (MAP) Pulse Ox O2 Delivery O2 Flow Rate FiO2 06/16/19 18:33 93 Room Air 06/16/19 16:22 97.0 71 16 105/63 (77) 95 Room Air 06/16/19 08:42 Room Air 06/16/19 08:18 98 Room Air 06/16/19 05:06 97.0 79 18 131/82 (98) 96 Room Air I & O 06/16/19 07:00 Intake Total 1220 ml Output Total 2000 ml Balance -780 ml Capillary Refill : General Appearance: No Apparent Distress, WD/WN, Chronically ill, Obese HEENT: PERRL/EOMI, Normal ENT Inspection, Pharynx Normal, Moist Mucous Membranes Neck: Full Range of Motion, Normal Inspection, Non Tender, Supple Respiratory: Chest Non Tender, No Accessory Muscle Use, No Respiratory Distress, Decreased Breath Sounds Cardiovascular: Regular Rate, Rhythm Gastrointestinal: non tender, soft Extremity: Normal Range of Motion (bilateral amputations) Neurologic/Psychiatric: Alert, Oriented x3, No Motor/Sensory Deficits, Normal Mood/Affect, signals collector/analyst II-XII Norm as Tested, Motor Weakness (decreased ROM thighs due to BKA's) Skin: Normal Color (left distal anterior portion of stump evidence of blisters and some slight erythematous changes), Warm/Dry Lymphatic: No Adenopathy Results Lab Laboratory Tests 06/16/19 04:59: Glucometer 176H 06/16/19 10:56: Glucometer 118H 06/16/19 16:21: Glucometer 170H Assessment/Plan Assessment/Plan Assessment/Plan status post left below-knee amputation. patient has a slight erythematous changes. We'll start on Keflex to cover in case infectious source We'll arrange for outdoor power equipment mechanic/prosthetic process to be began. Continue pain control Will follow Clinical Quality Measures DVT/VTE Risk/Contraindication: Risk Factor Score Per Nursin RFS Level Per Nursing on Admit: 4+=Very High ARGELIA LECHUGA DO Jun 16, 2019 20:49
--- NOTE | 2019-06-16 21:05 | NUR ---
RESTING QUIETLY IN BED, PAIN LEVEL 0/10 ON FLACC SCALE
--- NOTE | 2019-06-17 02:28 | NUR ---
c/o knee pain, level 6/10 on numeric scale, lortab 5 1 tab po given & Flexeril 10mg
[2019-06-17] MEDS: CYCLOBENZAPRINE 10 MG (FLEXERIL) TAB PO PRN ×2 (02:57→14:28)
[2019-06-17] MEDS: HYDROcodone/APAP 5 MG/325 MG (LORTAB) TAB PO PRN ×4 (02:58→20:28)
--- NOTE | 2019-06-17 03:20 | NUR ---
resting quietly in bed, pain level 0/10 on flacc scale
[2019-06-17 06:14] VITALS: BP 135/70
[2019-06-17] MEDS: ENOXAPARIN 40 MG/0.4 ML (LOVENOX) SYR SC SCH ×2 (06:16→16:07)
[2019-06-17] MEDS: inSUlin ASPART (NovoLOG) 1 UNIT/0.01 ML (CHARGE PER UNIT) SC SCH ×3 (06:17→18:01)
[2019-06-17] MEDS: glipiZIDE 5 MG (GLUCOTROL) TAB PO SCH (06:18)
--- NOTE | 2019-06-17 07:08 | NUR ---
bedside report given to BRIAN RODRIGUEZ
[2019-06-17] MEDS: CEPHALEXIN 250 MG (KEFLEX) CAP PO SCH ×3 (08:55→20:28)
[2019-06-17] MEDS: LACTULOSE SYRUP 10GM/15ML (ENULOSE) 30ML UDC PO SCH ×2 (08:55→21:44)
[2019-06-17] MEDS: ASPIRIN 81 MG CHEW (CHILDREN'S ASA) PO SCH (08:55)
[2019-06-17] MEDS: GABAPENTIN 600 MG (NEURONTIN) TAB PO SCH ×3 (08:55→20:28)
[2019-06-17] MEDS: POLYETHYLENE GLYCOL 17 GM (MIRALAX) PACK PO SCH ×2 (08:55→21:44)
--- NOTE | 2019-06-17 09:03 | PM&R Progress Note ---
Subjective HPI/CC On Admission Date Seen by Provider: Jun 17, 2019 Time Seen by Provider: 08:30 Per Med-Surg consultation 06/06/19: Chief complaint: Status post uncomplicated left below the knee amputation History present illness: This is a 54-year-old white male clinic patient of [facility] with a past medical history of morbid obesity in addition to diabetes who presents following an uncomplicated left below the knee amputation. 5 other partial amputations had been performed that resulted in remaining nonhealing ulcerations so the decision was made to complete the amputation in order to facilitate healing and placement of a prosthesis. At this current time patient reports muscle spasms so I did order baclofen. He use to have home oxygen but he stopped wearing it. He appears to have high risk for sleep apnea. I have restarted all of his home medications and will initiate PT and OT orders and place inpatient rehabilitation eval. He quit smoking 5 weeks ago with the help of Chantix. Chief complaint: Left below the knee amputation in need of rehab for help with transfers to and from wheelchair and use of prosthesis History of present illness: This is a 54-year-old white male known to me from consultation last week requested by Dr. Worley following a left below the knee amputation by Dr. Worley on 06/06/2019. He had an uneventful week pain was well controlled with narcotic pain medication in addition to baclofen. Bowel regimen maintained but slow transit constipation on a chronic basis precluded anything of results on that organ system so will work aggressively during inpatient rehab course for bowel evacuation. He does have a history of ESBL UTI in July 2018. Blood sugars have been well controlled on his home insulin regimen and has been maintained on Lovenox for DVT prophylaxis. Labs have been monitored closely and to note he definitely needs intensive therapy and techniques from physical therapy because he has a previous right below the knee amputation in the remote past. At this current time patient reports that his pain is well controlled there is a question of some blister and drainage on his stump so will evaluate that with general surgery consultation. I checked his meds and labs and restored all orders and will monitor patient closely due to his significant comorbidities. His prior level of functioning was the use of a right leg prosthesis and now he has bilateral below the knee amputations so will need wheelchair transfer work along with ADL independent techniques. Subjective/Events-last exam Sugars are in the 200s Maintain on home insulin dosing Oxygen worn at night Dr. Worley evaluated the left stump and felt like it was more pressure Start Keflex 5mg TID and will need to do that for ten days Stump agile developer will be obtained soon but have to allow healing of the cellulitic process DC plan for home Conferred with RN Reviewed therapy notes Review of Systems General: Fatigue Musculoskeletal: leg pain Objective Exam Vital Signs Vital Signs Date Time Temp Pulse Resp B/P (MAP) Pulse Ox O2 Delivery O2 Flow Rate FiO2 06/17/19 19:52 90 Room Air 06/17/19 17:02 97.2 69 16 135/70 (91) 06/16/19 20:25 1.00 Capillary Refill : General Appearance: No Apparent Distress, WD/WN, Chronically ill, Obese HEENT: PERRL/EOMI, Normal ENT Inspection, Pharynx Normal, Moist Mucous Membranes Neck: Full Range of Motion, Normal Inspection, Non Tender, Supple Respiratory: Chest Non Tender, No Accessory Muscle Use, No Respiratory Distress, Decreased Breath Sounds Cardiovascular: Regular Rate, Rhythm Gastrointestinal: Normal Bowel Sounds, No Organomegaly, No Pulsatile Mass, Non Tender, Soft Back: Normal Inspection, No CVA Tenderness, No Vertebral Tenderness Extremity: Normal Range of Motion (bilateral amputations) Neurologic/Psychiatric: Alert, Oriented x3, No Motor/Sensory Deficits, Normal Mood/Affect, wiping cloth cutter II-XII Norm as Tested, Motor Weakness (decreased ROM thighs due to BKA's) Skin: Normal Color (left distal anterior portion of stump evidence of blisters and some slight erythematous changes), Warm/Dry Lymphatic: No Adenopathy Results/Procedures Lab Patient resulted labs reviewed. FIM Transfers Therapy Code Descriptions/Definitions Functional [place] Measure: 0=Not Assessed/NA 4=Minimal Assistance 1=Total Assistance 5=Supervision or Setup 2=Maximal Assistance 6=Modified [place] 3=Moderate Assistance 7=Complete [place] Therapy Quality Codes: 6 Independent with activity with or without an assistive device 5 Patient requires set up or clean up by helper. Patient completes activity by themselves 4 Supervision or touching assist (CGA). [place] provide cues , steadying assist 3 The helper provides less than half the effort to complete the activity 2 The helper provides more than half the effort to complete the activity 1 Dependent. The helper does all the effort to complete an activity 7 Patient refused to complete or attempt activity 9 The patient did not perform the activity before the current illness or injury 88 Not attempted due to Medical conditions or safety concerns Transfers (B, C, W/C) (FIM): 6 Scootin Rollin Roll Left to Right (QC): 5 Supine to/from Sit: 6 Sit to/from Stand: 4 (precarious) Sit to Lying (QC): 5 Sit to Stand (QC): 5 Chair/[id number] Xfer(QC): 5 Bed to/from Chair: 6 Car Transfer (QC): 4 Gait Training Does the Patient Walk?: No and Walking Goal IS indicated Wheelchair Training Does the Pt Use a Wheelchair?: Yes Wheelchair (FIM): 6 Wheelchair Distance: 3=150 ft (400x2) Distance: 150'x2 Wheelchair Level of Assist: 6 Wheel 50 ft with 2 turns (QC): 6 Wheel 150 ft (QC): 6 Type of Wheelchair: Manual Mental Status/Objective Comprehension: 7 Expression: 7 Social Interaction: 7 Problem Solvin Memory: 7 ADL-Treatment Feedin Eating (QC): 6 Groomin Oral Hygiene (QC): 5 Bathin Shower/Bathe Self (QC): 4 Upper Extremity Dressin Upper Body Dressing (QC): 5 Lower Extremity Dressin Lower Body Dressing (QC): 3 On/Off Footwear (QC): 88 (bilateral BKA) Toilet/Commode Transfer: 5 Shower: 5 Assessment/Plan Assessment and Plan Assess & Plan/Chief Complaint Assessment: Status post uncomplicated left below the knee amputation POD # 9 Hypertension Obesity Diabetes mellitus Acute muscle spasms ordered baclofen Presumed obstructive sleep apnea Recent smoking cessation with the help of Chantix Plan: Restarted all home meds PT and OT Rehabilitation consult Continue smoking cessation Pain control Baclofen for muscle spasms Dr Ballesteros monitoring stump and will send in Keflex to complete 10 days total Monitor lung closely DC tomorrow (1) Amputation of left lower extremity below knee (2) Peripheral vascular disease (3) IDDM (insulin dependent diabetes mellitus) (4) Chronic pain (5) Hypertension (6) Hyperlipidemia (7) BMI 40.0-44.9, adult (8) DVT prophylaxis (9) Debility (10) Tobacco use (11) Marijuana use SARAHY SANTANA DO Jun 17, 2019 09:03
[2019-06-17] MEDS: ADVAIR HFA 115/21 MCG INHALER 8 GM IH SCH ×2 (09:25→19:52)
--- NOTE | 2019-06-17 09:43 | Occupational Ther Daily Note ---
OT Current Status-Daily Note Subjective Pt in w/c, agrees to therapy. Pt reports 3/10 pain in left LE. Pt states he is ready for d/c home tomorrow. Mental Status/Objective Therapy Code Descriptions/Definitions Functional [place] Measure: 0=Not Assessed/NA 4=Minimal Assistance 1=Total Assistance 5=Supervision or Setup 2=Maximal Assistance 6=Modified [place] 3=Moderate Assistance 7=Complete [place] ADL-Treatment Pt retrieved clothing at w/c level without assist. W/c mobility to restroom without assist. Transfer w/c <-> shower bench with modified independence using grab bars. Pt doffed clothing without assist. Pt is able to cover left residual limb to prevent getting wet without assist. Pt able to wash/dry all areas while seated on shower chair. Pt transferred to bed complete dressing. Don pullover shirt independently. Pt donned shorts with modified independence. Pt dons/doffs right prosthesis without assist. Combed hair without assist. Pt states he already completed oral care this morning seated at sink without assist. Pt demonstrated ability to perform transfer w/c <-> toilet with modified independence. Pt states brother installed grab bars by the toilet at home. States he has no questions or concerns about ADLs or home safety at this time. Therapy Code Descriptions/Definitions Functional [place] Measure: 0=Not Assessed/NA 4=Minimal Assistance 1=Total Assistance 5=Supervision or Setup 2=Maximal Assistance 6=Modified [place] 3=Moderate Assistance 7=Complete [place] Therapy Quality Codes: 6 Independent with activity with or without an assistive device 5 Patient requires set up or clean up by helper. Patient completes activity by themselves 4 Supervision or touching assist (CGA). [place] provide cues , steadying as sist 3 The helper provides less than half the effort to complete the activity 2 The helper provides more than half the effort to complete the activity 1 Dependent. The helper does all the effort to complete an activity 7 Patient refused to complete or attempt activity 9 The patient did not perform the activity before the current illness or injury 88 Not attempted due to Medical conditions or safety concerns Eating (FIM): 7 (Pt reports feeding self without assist) Eating (QC): 6 Grooming (FIM): 7 Oral Hygiene (QC): 6 Bathing (FIM): 6 Shower/Bathe Self (QC): 6 Upper Body (FIM): 7 Upper Body Dressing (QC): 6 Lower Body Dressing (FIM): 6 Lower Body Dressing (QC): 6 Toileting (FIM): 6 (Pt reports completing toileting hygiene and clothing management without assit) Toileting Hygiene (QC): 6 Toilet/Commode Transfer (FIM): 6 Toilet Transfer (QC): 6 Shower Transfer(FIM): 6 Other Treatment Pt performed w/c mobility to therapy gym without assist. Arm bike [id number] to increase overall strength and activity tolerance needed for functional task completion. Pt performed task with moderate resistance and steady pace. No rest breaks needed. Pt performed fine motor task with nuts and bolts using bilateral UE with 2# weights in place to increase strength and coordination/manipulation skills. Pt able to complete task without difficulty. UE exercises completed to increase strength for ADLs and transfers. Pt performed left shoulder flexion and abduction x10 reps with 4# weights. Bilateral elbow flexion and wrist flex/ext x20 reps with 4# weights. Pt returned to room, sitting in w/c with needs met after session. OT Short Term Goals Short Term Goals Time Frame: Jun 17, 2019 Transfers (B,C,W/C) (FIM): 4 (CGA) 1=Demonstrate adherence to instructed precautions during ADL tasks. 2=Patient will verbalize/demonstrate understanding of assistive devices/modifications for ADL. 3=Patient will improve strength/tolerance for activity to enable patient to perform ADL's. OT Senior Care Goals Senior Care Goals Time Frame: Jul 01, 2019 Eating (FIM): 7 Eating (QC): 7 Groomin Oral Hygiene (QC): 6 Bathing(FIM): 7 Shower/Bathe Self (QC): 6 Upper Body Dressing(FIM): 7 Upper Body Dressing (QC): 6 Lower Body Dressing(FIM): 7 Lower Body Dressing (QC): 6 Toileting(FIM): 7 Toileting Hygiene (QC): 6 Toilet/Commode Transfer(FIM): 6 Toilet/Commode Transfer (QC): 6 Shower Transfer(FIM): 6 Comprehension(FIM): 7 Expression (FIM): 7 Social Interaction(FIM): 7 Problem Solving(FIM): 7 Memory(FIM): 7 Additional Goals: 1-Demonstrate ADL Tasks, 2-Verbalize Understanding, 3- ImproveStrength/Fabián 1=Demonstrate adherence to instructed precautions during ADL tasks. 2=Patient will verbalize/demonstrate understanding of assistive devices/modifications for ADL. 3=Patient will improve strength/tolerance for activity to enable patient to perform ADL's. OT Education/Plan Discharge Recommendations Plan/Recommendations: Continue POC Treatment Plan/Plan of Care Patient would benefit from OT for education, treatment and training to promote independence in ADL's, mobility, safety and/or upper extremity function for ADL's. Plan of Care: ADL Retraining, Functional Mobility, Group Exercise/Act as Ind, UE Funct Exercise/Act Treatment Duration: Jul 01, 2019 Frequency: At least 5 of 7 days/Wk (IRF) Estimated Hrs Per Day: 1.5 hours per day Agreement: Yes Rehab Potential: Fair Time/GCodes Start Time: 08:00 Stop Time: 09:30 Total Time Billed (hr/min): 90 Billed Treatment Time 1 visit, ADLx3(45minutes), EXx3(45minutes) NIKKI TAFOYA OT Jun 17, 2019 09:43
--- NOTE | 2019-06-17 10:56 | Physical Therapy Daily Note ---
PT Daily Note-Current Subjective Patient in wheelchair pre tx, agrees to PT, voices no complaints of pain. Appearance Patient in wheelchair post tx. Mental Status Patient Orientation: Normal For Age Transfers Therapy Code Descriptions/Definitions Functional [place] Measure: 0=Not Assessed/NA 4=Minimal Assistance 1=Total Assistance 5=Supervision or Setup 2=Maximal Assistance 6=Modified [place] 3=Moderate Assistance 7=Complete [place] Therapy Quality Codes: 6 Independent with activity with or without an assistive device 5 Patient requires set up or clean up by helper. Patient completes activity by themselves 4 Supervision or touching assist (CGA). [place] provide cues , steadying assist 3 The helper provides less than half the effort to complete the activity 2 The helper provides more than half the effort to complete the activity 1 Dependent. The helper does all the effort to complete an activity 7 Patient refused to complete or attempt activity 9 The patient did not perform the activity before the current illness or injury 88 Not attempted due to Medical conditions or safety concerns Transfers (B, C, W/C) (FIM): 6 Scootin Rollin Roll Left to Right (QC): 6 Supine to/from Sit: 7 Sit to/from Stand: 5 Sit to Lying (QC): 6 Sit to Stand (QC): 4 Chair/Zqf-kp-Nmeas Xfer(QC): 6 Bed to/from Chair: 6 Car Transfer (QC): 6 Patient performs bed mobility with independence, supine <-> sit with ind ependence, sit <-> stand with SBA in the parallel bars, transfers with mod I, car transfer mod I. Patient only has a prosthetic leg on the right side and does not have enough strength to stand easily. He has been independent in his room without any issues. Gait Training Patient is not able to hop on his prosthetic led due to general weakness and obesity. Wheelchair Training Does the Pt Use a Wheelchair?: Yes Wheelchair (FIM): 6 Distance: 150'x2 Wheelchair Level of Assist: 6 Wheel 50 ft with 2 turns (QC): 6 Wheel 150 ft (QC): 6 Type of Wheelchair: Manual Exercises Supine Ex: Quad Set, Glut sets, Straight leg raise, Hip abd/add Supine Reps: [address] Ex=Flex, Abd, Ext (left leg), Mini squats (right leg) LAQ alternating for 5 min, prone hip ext stretch for 5 min NuStep Minutes: 15 NuStep Workload: 5 (left leg not used, right has prosthetic leg) Treatments LE strengthening and ROM, bed mobility and transfers, wheelchair mobility Assessment Current Status: Fair Progress mod I with most mobility except for standing and ambulation PT Short Term Goals Short Term Goals Time Frame: Jun 17, 2019 Transfers (B,C,W/C) (FIM): 4 (CGA) Gait (FIM): 1 Gait Distance Comment: 5' Gait Level of Assist: 4 Gait Assistive Device: FWW Wheelchair Distance: 150'x2 PT Veneer Stacker Goals Veneer Stacker Goals PT Veneer Stacker Goals Time Frame: Jul 01, 2019 Transfers (B,C,W/C) (FIM): 5 Sit to Lying (QC): 6 Lying-Sitting on Side/Bed(QC): 6 Sit to Stand (QC): 5 Rollin Roll Left to Right (QC): 6 Chair/Fth-gq-Ixnvc Xfer(QC): 4 Car Transfer (QC): 4 Gait (FIM): 7 Distance: 10' Walk 10 feet (QC): 4 Walk 10ft-Uneven Surface(QC): 4 Gait Level of Assist: 4 Gait Assistive Device: FWW Wheelchair Level of Assist: 6 Wheel 50 feet with 2 turns (QC: 6 PT Plan Problem List Problem List: Activity Tolerance, Functional Strength, Safety, Balance, Gait, Transfer, Bed Mobility, ROM Treatment/Plan Treatment Plan: Continue Plan of Care Treatment Plan: Bed Mobility, Concurrent Therapy, Education, Functional Activity Fabián, Functional Strength, Group Therapy, Gait, Safety, Therapeutic Exercise, Transfers Treatment Duration: Jul 01, 2019 Frequency: At least 5 of 7 days/Wk (IRF) Estimated Hrs Per Day: 1.5 hours per day Patient and/or Family Agrees t: Yes Safety Risks/Education Patient Education: Transfer Techniques, Correct Positioning, W/C Management, Safety Issues Teaching Recipient: Patient Teaching Methods: Demonstration, Discussion Response to Teaching: Reinforcement Needed Time/GCodes Time In: 1000 Time Out: 1100 Total Billed Treatment Time: 60 Total Billed Treatment 1 visit FA 15' EX 45' SAMMIE GUERRIER PT Jun 17, 2019 10:56
[2019-06-17] MEDS: SENNA W/DOCUSATE (SENOKOT S) TABLET PO SCH ×2 (11:55→20:28)
[2019-06-17] MEDS: DOCUSATE SODIUM 100 MG (COLACE) CAP PO SCH ×2 (11:55→21:37)
--- NOTE | 2019-06-17 14:13 | Physical Therapy Daily Note ---
PT Daily Note-Current Subjective Patient agrees to PT and reports he is highly motivated to return to home tomorrow. Mental Status Patient Orientation: Normal For Age Transfers Therapy Code Descriptions/Definitions Functional [place] Measure: 0=Not Assessed/NA 4=Minimal Assistance 1=Total Assistance 5=Supervision or Setup 2=Maximal Assistance 6=Modified [place] 3=Moderate Assistance 7=Complete [place] Therapy Quality Codes: 6 Independent with activity with or without an assistive device 5 Patient requires set up or clean up by helper. Patient completes activity by themselves 4 Supervision or touching assist (CGA). [place] provide cues , steadying assist 3 The helper provides less than half the effort to complete the activity 2 The helper provides more than half the effort to complete the activity 1 Dependent. The helper does all the effort to complete an activity 7 Patient refused to complete or attempt activity 9 The patient did not perform the activity before the current illness or injury 88 Not attempted due to Medical conditions or safety concerns Transfers (B, C, W/C) (FIM): 7 Scootin Rollin Roll Left to Right (QC): 6 Supine to/from Sit: 7 Sit to/from Stand: 7 Sit to Lying (QC): 6 Sit to Stand (QC): 6 Chair/Vdv-vp-Cuiyq Xfer(QC): 6 Bed to/from Chair: 7 Wheelchair Training Does the Pt Use a Wheelchair?: Yes Wheelchair (FIM): 7 Wheelchair Distance: 3=150 ft Distance: >500' x 4 Wheelchair Level of Assist: 7 Wheel 50 ft with 2 turns (QC): 6 Wheel 150 ft (QC): 6 Type of Wheelchair: Manual up and down ramp without difficulty and on outside terrain Assessment Patient tolerated treatment well and returned to room and is in bed independently. PT Short Term Goals Short Term Goals Time Frame: Jun 17, 2019 Transfers (B,C,W/C) (FIM): 4 (CGA) Gait (FIM): 1 Gait Distance Comment: 5' Gait Level of Assist: 4 Gait Assistive Device: FWW Wheelchair Distance: 150'x2 PT Safety Grooving Machine Operator Goals Snf Goals PT Snf Goals Time Frame: Jul 01, 2019 Transfers (B,C,W/C) (FIM): 5 Sit to Lying (QC): 6 Lying-Sitting on Side/Bed(QC): 6 Sit to Stand (QC): 5 Rollin Roll Left to Right (QC): 6 Chair/Gsa-da-Kuvgm Xfer(QC): 4 Car Transfer (QC): 4 Gait (FIM): 7 Distance: 10' Walk 10 feet (QC): 4 Walk 10ft-Uneven Surface(QC): 4 Gait Level of Assist: 4 Gait Assistive Device: FWW Wheelchair Level of Assist: 6 Wheel 50 feet with 2 turns (QC: 6 PT Plan Treatment/Plan Treatment Plan: Continue Plan of Care Treatment Plan: Bed Mobility, Concurrent Therapy, Education, Functional Activity Fabián, Functional Strength, Group Therapy, Gait, Safety, Therapeutic Exercise, Transfers Treatment Duration: Jul 01, 2019 Frequency: At least 5 of 7 days/Wk (IRF) Estimated Hrs Per Day: 1.5 hours per day Patient and/or Family Agrees t: Yes Time/GCodes Time In: 1340 Time Out: 1410 Total Billed Treatment Time: 30 Total Billed Treatment 1 visit [facility] x 2 30 mn MYA ARAIZA PT Jun 17, 2019 14:13
[2019-06-17 17:02] VITALS: BP 135/70
--- NOTE | 2019-06-17 20:00 | NUR ---
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 Pt has stated that he knows the other 2 prosthetic companies in [place] & wants to go through one of them, States that he has used [facility] in the past for previous Rt leg prosthetic, & that he had to pay $7000 out of pocket, & just doesn't want to go through them again.
[2019-06-17] MEDS ORDERED: CEPH250C PO (20:18)
[2019-06-17] MEDS: PANTOPRAZOLE 40 MG (PROTONIX) TAB PO SCH (20:26)
[2019-06-17] MEDS: ATORVASTATIN 40 MG (LIPITOR) TABLET PO SCH (20:28)
[2019-06-17] MEDS: BACLOFEN 10 MG (LIORESAL) TAB PO PRN (20:28)
--- NOTE | 2019-06-17 22:37 | NUR ---
pt does have bilat bka but does have one prosthetic and uses walker and wheelchair Addendum: 06/17/19 at 2251 by MOLLY THOMPSON RN Amended: Links added.
[2019-06-18] MEDS: ENOXAPARIN 40 MG/0.4 ML (LOVENOX) SYR SC SCH (05:19)
[2019-06-18] MEDS: glipiZIDE 5 MG (GLUCOTROL) TAB PO SCH (05:20)
[2019-06-18] MEDS: HYDROcodone/APAP 5 MG/325 MG (LORTAB) TAB PO PRN ×2 (05:21→10:42)
[2019-06-18] MEDS: inSUlin ASPART (NovoLOG) 1 UNIT/0.01 ML (CHARGE PER UNIT) SC SCH ×2 (06:44→12:29)
[2019-06-18 06:45] VITALS: BP 118/74
[2019-06-18] MEDS: CEPHALEXIN 250 MG (KEFLEX) CAP PO SCH (08:56)
[2019-06-18] MEDS: ASPIRIN 81 MG CHEW (CHILDREN'S ASA) PO SCH (08:56)
[2019-06-18] MEDS: DOCUSATE SODIUM 100 MG (COLACE) CAP PO SCH (09:00)
[2019-06-18] MEDS: LACTULOSE SYRUP 10GM/15ML (ENULOSE) 30ML UDC PO SCH (09:00)
[2019-06-18] MEDS: SENNA W/DOCUSATE (SENOKOT S) TABLET PO SCH (09:00)
[2019-06-18] MEDS: POLYETHYLENE GLYCOL 17 GM (MIRALAX) PACK PO SCH (09:00)
[2019-06-18] MEDS: CYCLOBENZAPRINE 10 MG (FLEXERIL) TAB PO PRN (09:01)
[2019-06-18] MEDS: GABAPENTIN 600 MG (NEURONTIN) TAB PO SCH (09:01)
--- NOTE | 2019-06-18 09:04 | Discharge Summary ---
Diagnosis/Chief Complaint Date of Admission Jun 10, 2019 at 11:15 Date of Discharge Discharge Date: Jun 18, 2019 Discharge Diagnosis Assessment: Status post uncomplicated left below the knee amputation POD # 10 Hypertension Obesity Diabetes mellitus Acute muscle spasms ordered baclofen Presumed obstructive sleep apnea Recent smoking cessation with the help of Chantix Plan: Restarted all home meds PT and OT Rehabilitation consult Continue smoking cessation Pain control Baclofen for muscle spasms Dr Ballesteros monitoring stump and will send in Keflex to complete 10 days total Monitor lung closely DC tomorrow (1) Amputation of left lower extremity below knee (2) Peripheral vascular disease (3) IDDM (insulin dependent diabetes mellitus) (4) Chronic pain (5) Hypertension (6) Hyperlipidemia (7) BMI 40.0-44.9, adult (8) DVT prophylaxis (9) Debility (10) Tobacco use (11) Marijuana use Discharge Summary Discharge Physical Examination Allergies: Coded Allergies: pregabalin (Unverified Allergy, Severe, FEVER, 04/26/15) Vitals & I&Os Vital Signs Date Time Temp Pulse Resp B/P (MAP) Pulse Ox O2 Delivery O2 Flow Rate FiO2 06/18/19 11:09 95 Room Air 06/18/19 06:45 98.6 65 18 118/74 (89) 06/17/19 20:00 1.00 General Appearance: Alert, Oriented X3, Cooperative HEENT: Atraumatic, PERRLA Respiratory: Clear to Auscultation, Normal Air Movement Cardiovascular: Regular Rate Abdominal: Normal Bowel Sounds, Soft Neuro: Normal Speech, Strength at 5/5 X4 Ext, Other (bilateral AKA) Psych/Mental Status: Mental Status NL, Mood NL Hospital Course Was the Problem List Reviewed?: Yes Pt had an uneventful 9 days in inpatient rehab he was admitted thereafter a left below the knee amputation by Dr. Worley in an uncomplicated manner. Dr. Worley did watch the wound closely it did blister up and three days prior to discharge was placed on Keflex TID for 10 days to ensure that healed up but overall did very well with therapy participated in everything that he is required to do bowels regained normalcy and blood sugars remain satisfactory. Pt overall regained enough function to be able to return home and live independently with the use of assisted devices and techniques taught by PT. Overall he had a very dramatic improvement and regaining independence in order to return home. Labs (last 24 hrs) Laboratory Tests 06/10/19 15:28: Glucometer 178H 06/10/19 20:14: Glucometer 193H 06/11/19 05:26: Glucometer 169H 06/11/19 05:45: White Blood Count 10.8, Red Blood Count 4.55, Hemoglobin 12.6L, Hematocrit 40, Mean Corpuscular Volume 87, Mean Corpuscular Hemoglobin 28, Mean Corpuscular Hemoglobin Concent 32, Red Cell Distribution Width 13.3, Platelet Count 204, Mean Platelet Volume 8.9, Neutrophils (%) (Auto) 65, Lymphocytes (%) (Auto) 22, Monocytes (%) (Auto) 11, Eosinophils (%) (Auto) 3, Basophils (%) (Auto) 0, Neutrophils # (Auto) 7.0, Lymphocytes # (Auto) 2.3, Monocytes # (Auto) 1.2H, Eosinophils # (Auto) 0.3, Basophils # (Auto) 0.0, Sodium Level 136, Potassium Level 4.6, Chloride Level 97L, Carbon Dioxide Level 29, Anion Gap 10, Blood Urea Nitrogen 16, Creatinine 0.83, Estimat Glomerular Filtration Rate > 60, BUN/Creatinine Ratio 19, Glucose Level 167H, Calcium Level 9.7, Corrected Gennaro cium 10.3H, Total Bilirubin 0.5, Aspartate Amino Transf (AST/SGOT) 32, Alanine Aminotransferase (ALT/SGPT) 22, Alkaline Phosphatase 139H, Total Protein 7.6, Albumin 3.3 06/11/19 10:59: Glucometer 103 06/11/19 15:30: Glucometer 126H 06/11/19 20:39: Glucometer 184H 06/12/19 05:30: Glucometer 174H 06/12/19 11:01: Glucometer 127H 06/12/19 15:42: Glucometer 139H 06/12/19 20:13: Glucometer 172H 06/13/19 05:05: Glucometer 160H 06/13/19 11:29: Glucometer 96 06/13/19 14:10: Glucometer 137H 06/13/19 15:54: Glucometer 144H 06/13/19 20:04: Glucometer 210H 06/14/19 05:42: Glucometer 174H 06/14/19 12:22: Glucometer 92 06/14/19 15:27: Glucometer 162H 06/14/19 20:48: Glucometer 233H 06/15/19 05:14: Glucometer 226H 06/15/19 11:01: Glucometer 206H 06/15/19 15:46: Glucometer 197H 06/15/19 20:45: Glucometer 233H 06/16/19 04:59: Glucometer 176H 06/16/19 10:56: Glucometer 118H 06/16/19 16:21: Glucometer 170H 06/16/19 20:58: Glucometer 239H 06/17/19 05:27: Glucometer 208H 06/17/19 10:51: Glucometer 140H 06/17/19 17:01: Glucometer 163H 06/17/19 21:14: Glucometer 258H 06/18/19 05:46: Glucometer 171H 06/18/19 11:17: Glucometer 126H Pending Labs Laboratory Tests 06/10/19 15:28: Glucometer 178 06/10/19 20:14: Glucometer 193 06/11/19 05:26: Glucometer 169 06/11/19 05:45: White Blood Count 10.8, Red Blood Count 4.55, Hemoglobin 12.6, Hematocrit 40, Mean Corpuscular Volume 87, Mean Corpuscular Hemoglobin 28, Mean Corpuscular Hemoglobin Concent 32, Red Cell Distribution Width 13.3, Platelet Count 204, Mean Platelet Volume 8.9, Neutrophils (%) (Auto) 65, Lymphocytes (%) (Auto) 22, Monocytes (%) (Auto) 11, Eosinophils (%) (Auto) 3, Basophils (%) (Auto) 0, Neutrophils # (Auto) 7.0, Lymphocytes # (Auto) 2.3, Monocytes # (Auto) 1.2, Eosinophils # (Auto) 0.3, Basophils # (Auto) 0.0, Sodium Level 136, Potassium Level 4.6, Chloride Level 97, Carbon Dioxide Level 29, Anion Gap 10, Blood Urea Nitrogen 16, Creatinine 0.83, Estimat Glomerular Filtration Rate > 60, BUN/Creatinine Ratio 19, Glucose Level 167, Calcium Level 9.7, Corrected Calcium 10.3, Total Bilirubin 0.5, Aspartate Amino Transf (AST/SGOT) 32, Alanine Aminotr ansferase (ALT/SGPT) 22, Alkaline Phosphatase 139, Total Protein 7.6, Albumin 3.3 06/11/19 10:59: Glucometer 103 06/11/19 15:30: Glucometer 126 06/11/19 20:39: Glucometer 184 06/12/19 05:30: Glucometer 174 06/12/19 11:01: Glucometer 127 06/12/19 15:42: Glucometer 139 06/12/19 20:13: Glucometer 172 06/13/19 05:05: Glucometer 160 06/13/19 11:29: Glucometer 96 06/13/19 14:10: Glucometer 137 06/13/19 15:54: Glucometer 144 06/13/19 20:04: Glucometer 210 06/14/19 05:42: Glucometer 174 06/14/19 12:22: Glucometer 92 06/14/19 15:27: Glucometer 162 06/14/19 20:48: Glucometer 233 06/15/19 05:14: Glucometer 226 06/15/19 11:01: Glucometer 206 06/15/19 15:46: Glucometer 197 06/15/19 20:45: Glucometer 233 06/16/19 04:59: Glucometer 176 06/16/19 10:56: Glucometer 118 06/16/19 16:21: Glucometer 170 06/16/19 20:58: Glucometer 239 06/17/19 05:27: Glucometer 208 06/17/19 10:51: Glucometer 140 06/17/19 17:01: Glucometer 163 06/17/19 21:14: Glucometer 258 06/18/19 05:46: Glucometer 171 06/18/19 11:17: Glucometer 126 Discharge Home Medications: Active Scripts Active Cephalexin 250 Mg Capsule 500 Mg PO TID Hydrocodone/Acetaminophen 5/325mg Tablet (Acetaminophen/Hydrocodone Bitart) 1 Tab Tab 1 Tab PO Q4H PRN Voltaren (Diclofenac Sodium) 100 Gm Gel..gram. 0 Gm TOP QID PRN Cyclobenzaprine HCl 10 Mg Tablet 10 Mg PO TID PRN Reported Glipizide 10 Mg Tablet 10 Mg PO DAILY Trulicity (Dulaglutide) 0.75 Mg/0.5 Ml Pen.injctr 0.75 Mg SQ WE Humalog Kwikpen (Insulin Lispro) 100 Unit/1 Ml Insuln.pen 60 Unit SQ TIDAC Protonix (Pantoprazole Sodium) 40 Mg Tablet.dr 40 Mg PO HS Ibuprofen 200 Mg Tablet 800 Mg PO Q8H PRN Symbicort 160-4.5 Mcg Inhaler (Budesonide/Formoterol Fumarate) 10.2 Gm Hfa.aer.ad 2 Puff IH BID Tresiba Flextouch U-200 (Insulin Degludec) 200 Unit/1 Ml Insuln.pen 96 Unit SQ HS Atorvastatin Calcium 40 Mg Tablet 40 Mg PO HS LAST FILLED #90 11-16-18 Aspir 81 (Aspirin) 81 Mg Tablet.dr 81 Mg PO DAILY Gabapentin 600 Mg Tablet 600 Mg PO TID Proair Hfa (Albuterol Sulfate) 1 Puff Puff 2 Puff INH Q4H PRN Instructions to patient/family Please see electronic discharge instructions given to patient. Diagnosis/Problems Diagnosis/Problems (1) Amputation of left lower extremity below knee (2) Peripheral vascular disease Status: Chronic (3) IDDM (insulin dependent diabetes mellitus) Status: Chronic (4) Chronic pain Status: Chronic (5) Hypertension Status: Chronic (6) Hyperlipidemia Status: Chronic (7) BMI 40.0-44.9, adult Status: Chronic (8) DVT prophylaxis Status: Acute (9) Debility Status: Chronic (10) Tobacco use Status: Chronic (11) Marijuana use Status: Chronic Clinical Quality Measures DVT/VTE Risk/Contraindication: Risk Factor Score Per Nursin RFS Level Per Nursing on Admit: 4+=Very High SARAHY SANTANA DO Jun 18, 2019 09:04
--- NOTE | 2019-06-18 09:06 | NUR ---
DISABILITY ATTORNEY met with patient to review any last minute concerns regarding discharge plans home today. Patient expresses no concerns and is eager to return home. DISABILITY ATTORNEY reviewed IMM and patient choice letter for [facility]. Patient expresses no concerns regarding discharge plans at this time.
[2019-06-18] MEDS: ADVAIR HFA 115/21 MCG INHALER 8 GM IH SCH (11:09)
--- NOTE | 2019-06-18 12:52 | NUR ---
FUEL MANAGER arranged prosthetic consult with [facility] for July 07 at 3 p.m.
--- NOTE | 2019-06-18 13:02 | Therapy Team Discharge Summary ---
Therapy Discharge Summary Discharge Recommendations Date of Discharge Therapy D/C Recommendations: Home w/ Family Support Occupational Therapy Pt admitted to ARU following acute hospitalization for left BKA. On admission pt required mod assist for LE dressing and SBA for UE dressing and grooming. Skilled OT intervention focused on ADL training, transfers, strengthening, and home safety education. Pt made good progress with therapy and by discharge is completing eating, grooming, and UE dressing independently and is completing other basic ADLs and transfers with modified independence. Pt met OT LTG. Pt discharging home this date. D/c ARU OT at this time. Decreased Activ Tolerance, Impaired I ADL's PT Flowers Salesperson Goals Senior Living Goals PT Flowers Salesperson Goals Time Frame: Jul 01, 2019 Transfers (B,C,W/C) (FIM): 5 Roll Left to Right (QC): 6 Sit to Lying (QC): 6 Lying-Sitting on Side/Bed(QC): 6 Sit to Stand (QC): 5 Chair/Mis-vs-Hxuqa Xfer(QC): 4 Car Transfer (QC): 4 Gait (FIM): 7 Distance: 10' Walk 10 feet (QC): 4 Walk 10ft-Uneven Surface(QC): 4 Gait Level of Assist: 4 Gait Assistive Device: FWW Wheelchair Level of Assist: 6 Wheel 50 feet with 2 turns (QC: 6 OT Flowers Salesperson Goals Flowers Salesperson Goals Time Frame: Jul 01, 2019 Eating (FIM): 7 Eating (QC): 7 Oral Hygiene (QC): 6 Grooming(FIM): 7 Bathing(FIM): 7 Shower/Bathe Self (QC): 6 Upper Body Dressing(FIM): 7 Upper Body Dressing (QC): 6 Lower Body Dressing(FIM): 7 Lower Body Dressing (QC): 6 Toileting(FIM): 7 Toileting Hygiene (QC): 6 Toilet/Commode Transfer(FIM): 6 Toilet/Commode Transfer (QC): 6 Shower Transfer(FIM): 6 Comprehension(FIM): 7 Expression (FIM): 7 Social Interaction(FIM): 7 Problem Solving(FIM): 7 Memory(FIM): 7 Additional Goals: 1-Demonstrate ADL Tasks, 2-Verbalize Understanding, 3- ImproveStrength/Fabián 1=Demonstrate adherence to instructed precautions during ADL tasks. 2=Patient will verbalize/demonstrate understanding of assistive devices/modifications for ADL. 3=Patient will improve strength/tolerance for activity to enable patient to perform ADL's. Speech Senior Living Goals Senior Living Goals Comprehension: 7 Expression: 7 Social Interaction: 7 Problem Solvin Memory: 7 NIKKI TAFOYA OT Jun 18, 2019 13:02
--- NOTE | 2019-06-18 13:12 | Therapy Team Discharge Summary ---
Therapy Discharge Summary Discharge Recommendations Date of Discharge Therapy D/C Recommendations: Home w/ Family Support Physical Therapy Patient came to rehab following a left BKA. Upon evaluation patient performed bed mobility with SBA, supine <-> sit with SBA, sit <-> stand with min assist from an elevated surface, transfers with min assist using a rolling walker or with SBA using a sliding board, car transfers SBA using a sliding board, no ambulation or stairs, propelled a manual wheelchair 150' with SBA (including 50' with at least 2 turns of 90 degrees). Patient has been performing bed mobility and transfer training, balance and endurance training, functional strengthening, gait training, and education. 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 Now, patient is independent with bed mobility, mod I with transfers and car transfer, and mod I with wheelchair mobility. Patient is discharging from this facility and will be discharged from PT at this time. Occupational Therapy Decreased Activ Tolerance, Impaired I ADL's PT Tower Air Traffic Control Specialist Goals Tower Air Traffic Control Specialist Goals PT Tower Air Traffic Control Specialist Goals Time Frame: Jul 01, 2019 Transfers (B,C,W/C) (FIM): 5 Roll Left to Right (QC): 6 Sit to Lying (QC): 6 Lying-Sitting on Side/Bed(QC): 6 Sit to Stand (QC): 5 Chair/Ula-ve-Blmeq Xfer(QC): 4 Car Transfer (QC): 4 Gait (FIM): 7 Distance: 10' Walk 10 feet (QC): 4 Walk 10ft-Uneven Surface(QC): 4 Gait Level of Assist: 4 Gait Assistive Device: FWW Wheelchair Level of Assist: 6 Wheel 50 feet with 2 turns (QC: 6 OT Tower Air Traffic Control Specialist Goals Tower Air Traffic Control Specialist Goals Time Frame: Jul 01, 2019 Eating (FIM): 7 Eating (QC): 7 Oral Hygiene (QC): 6 Grooming(FIM): 7 Bathing(FIM): 7 Shower/Bathe Self (QC): 6 Upper Body Dressing(FIM): 7 Upper Body Dressing (QC): 6 Lower Body Dressing(FIM): 7 Lower Body Dressing (QC): 6 Toileting(FIM): 7 Toileting Hygiene (QC): 6 Toilet/Commode Transfer(FIM): 6 Toilet/Commode Transfer (QC): 6 Shower Transfer(FIM): 6 Comprehension(FIM): 7 Expression (FIM): 7 Social Interaction(FIM): 7 Problem Solving(FIM): 7 Memory(FIM): 7 Additional Goals: 1-Demonstrate ADL Tasks, 2-Verbalize Understanding, 3- ImproveStrength/Fabián 1=Demonstrate adherence to instructed precautions during ADL tasks. 2=Patient will verbalize/demonstrate understanding of assistive devices/modifications for ADL. 3=Patient will improve strength/tolerance for activity to enable patient to perform ADL's. Speech Chcf Goals Tower Air Traffic Control Specialist Goals Comprehension: 7 Expression: 7 Social Interaction: 7 Problem Solvin Memory: 7 SAMMIE GUERRIER PT Jun 18, 2019 13:11
== END 2019-06-18 12:35 | disposition home health service (06) | DRG 560 ==
PROVIDERS: ADMIT Internal Medicine; ATTEND Internal Medicine
DX: Z47.81 Encounter for orthopedic aftercare following surgical amputation (principal); Z89.512 Acquired absence of left leg below knee; Z89.511 Acquired absence of right leg below knee; E11.51 Type 2 diabetes mellitus with diabetic peripheral angiopathy without gangrene; E66.01 Morbid (severe) obesity due to excess calories; Z68.42 Body mass index [BMI] 45.0-49.9, adult; E11.40 Type 2 diabetes mellitus with diabetic neuropathy, unspecified; I10 Essential (primary) hypertension; Z66 Do not resuscitate; M62.838 Other muscle spasm; K21.9 Gastro-esophageal reflux disease without esophagitis; E78.5 Hyperlipidemia, unspecified; J44.9 Chronic obstructive pulmonary disease, unspecified; I25.10 Atherosclerotic heart disease of native coronary artery without angina pectoris; K59.01 Slow transit constipation; K44.9 Diaphragmatic hernia without obstruction or gangrene; G47.30 Sleep apnea, unspecified; F12.90 Cannabis use, unspecified, uncomplicated; Z79.4 Long term (current) use of insulin; Z87.891 Personal history of nicotine dependence
CPT/HCPCS: 36415; 80053; 82962; 85025; 94640; 94760

== ENCOUNTER 2020-03-29 18:06 | Inpatient (IN) | payer MEDICARE ==
[~2020-03-29] VITALS: Ht 187 cm; Wt 176.3 kg
[~2020-03-29 18:06] MED LIST changes: +ACHYD1T PO; +BACL10TA PO; +CEPH250C PO; +CYCL10TA9 PO; +DICL100G18 TOP; -HYDR-3820 PO; -IBUP-2055 PO; +IBUP-2473 PO; -MINO100C2 PO; +MINO100C5 PO; -RANI-515 PO; +RANI-609 PO
[2020-03-29] MEDS ORDERED: LACTATED RINGERS 1,000 ML IV SCH (18:30)
[2020-03-29] MEDS ORDERED: IBUPROFEN 800 MG (MOTRIN) TAB PO ONE (18:30)
[2020-03-29] MEDS ORDERED: ACETAMINOPHEN 500 MG TAB (TYLENOL) PO ONE (18:30)
--- NOTE | 2020-03-29 18:35 | ED General ---
General Stated Complaint: SEPTIC WOUND Source of Information: Patient Exam Limitations: No Limitations History of Present Illness Date Seen by Provider: March 29, 2020 Time Seen by Provider: 18:32 Initial Comments To ER with concerns that he has developed sepsis from a wound to the medial left thigh. This been present for several days, painful. He states he was going to try to cut this open at home but was unable to reach it. His daughter brought him here. Denies any known fevers but he is febrile on arrival at 102.3. Tachycardic 115. Timing/Duration: Getting Worse Severity: Moderate Associated Systoms: No Fever/Chills, No Nausea/Vomiting Allergies and Home Medications Allergies Coded Allergies: pregabalin (Unverified Allergy, Severe, FEVER, 04/26/15) Home Medications Albuterol Sulfate 1 Puff Puff, 2 PUFF INH Q4H PRN for SHORTNESS OF BREATH, (Reported) Aspirin 81 Mg Tablet.dr, 81 MG PO DAILY, (Reported) Atorvastatin Calcium 40 Mg Tablet, 40 MG PO HS, (Reported) LAST FILLED #90 11-16-18 Budesonide/Formoterol Fumarate 10.2 Gm Hfa.aer.ad, 2 PUFF IH BID, (Reported) Cephalexin 250 Mg Capsule, 500 MG PO TID Prescribed by: SARAHY SANTANA on 06/17/192017 Cyclobenzaprine HCl 10 Mg Tablet, 10 MG PO TID PRN for MUSCLE SPASMS Prescribed by: SARAHY SANTANA on 06/16/19 160 Diclofenac Sodium 100 Gm Gel..gram., 0 GM TOP QID PRN for SHOULDER PAIN Prescribed by: SARAHY SANTANA on 06/16/19 160 Dulaglutide 0.75 Mg/0.5 Ml Pen.injctr, 0.75 MG SQ We, (Reported) Gabapentin 600 Mg Tablet, 600 MG PO TID, (Reported) Glipizide 10 Mg Tablet, 10 MG PO DAILY, (Reported) Hydrocodone Bit/Acetaminophen 1 Tab Tab, 1 TAB PO Q4H PRN for PAIN-MODERATE Prescribed by: SARAHY SANTANA on 06/16/19 160 Ibuprofen 200 Mg Tablet, 800 MG PO Q8H PRN for PAIN-MILD, (Reported) Insulin Degludec 200 Unit/1 Ml Insuln.pen, 96 UNIT SQ HS, (Reported) Insulin Lispro 100 Unit/1 Ml Insuln.pen, 60 UNIT SQ TIDAC, (Reported) Pantoprazole Sodium 40 Mg Tablet.dr, 40 MG PO HS, (Reported) Patient Home Medication List Home Medication List Reviewed: Yes Review of Systems Review of Systems Constitutional: see HPI EENTM: see HPI Respiratory: no symptoms reported Cardiovascular: no symptoms reported Genitourinary: no symptoms reported Musculoskeletal: no symptoms reported Skin: see HPI Psychiatric/Neurological: No Symptoms Reported Hematologic/Lymphatic: No Symptoms Reported Immunological/Allergic: no symptoms reported Past Xcpqyrq-Hiqtwo-Uqoslf Hx Patient Social History Drug of Choice: E.D. REPORT: HX OF METH, LSD,ECSTASY,CRACK COCAINE, MUSHROOMS Type Used: Cigarettes 2nd Hand Smoke Exposure: Yes Recent Foreign Travel: No Contact w/Someone Who Travel: No Recent Hopitalizations: No Immunizations Up To Date Tetanus Booster (TDap): Unknown PED Vaccines UTD: Yes Date of Pneumonia Vaccine: Sep 19, 2011 Date of Influenza Vaccine: May 28, 2018 Seasonal Allergies Seasonal Allergies: Yes (Hay fever, Pollen) Past Medical History Surgeries: Yes Amputation, Orthopedic Respiratory: Yes Asthma, Sleep Apnea, COPD Currently Using CPAP: No Currently Using BIPAP: No Cardiac: No Chronic Edema/Swelling, Coronary Artery Disease, High Cholesterol, Hypertension, Peripheral Vascular Neurological: No Neuropathy Reproductive Disorders: No Sexually Transmitted Disease: No HIV/AIDS: No Genitourinary: Yes UTI-Chronic Gastrointestinal: No Gastroesophageal Reflux, Chronic Constipation, Hiatal Hernia Musculoskeletal: Yes Amputee, Arthritis, Back Injury Endocrine: Yes Diabetes, Insulin dep HEENT: No Loss of Vision: Denies Hearing Impairment: Denies Cancer: No Psychosocial: No Integumentary: No Blood Disorders: No Adverse Reaction/Blood Tranf: No Family Medical History Cardiovascular disease 19 FATHER ( heart attack) G8 BROTHER Diabetes mellitus 19 MOTHER ( complications diabetes) Psychosocial problem G8 BROTHER (in [place] [facility]) Heart Disease, Diabetes Physical Exam Vital Signs Vital Signs - First Documented 03/29/20 03/29/20 19:13 20:13 Temp 39.0 Pulse 107 Resp 18 B/P (MAP) 120/102 (108) Pulse Ox 92 O2 Delivery Room Air O2 Flow Rate 2.00 Capillary Refill : Height, Weight, BMI Height: 6'4.00" Weight: 369lbs. 14.4oz. 167.331080aq; 45.0 BMI Method:Stated General Appearance: No Apparent Distress, Chronically ill, Obese Eyes: Bilateral Eye Normal Inspection, Bilateral Eye PERRL, Bilateral Eye EOMI Neck: Full Range of Motion, Normal Inspection Respiratory: Normal Breath Sounds, No Accessory Muscle Use, No Respiratory Distress Cardiovascular: Regular Rate, Rhythm, Tachycardia Gastrointestinal: Non Tender, Soft Extremity: Normal Capillary Refill, Other (he is a bilateral below the knee amputee) Neurologic/Psychiatric: Alert, Oriented x3 Skin: Other (erythematous fluctuant wound to the medial proximal left thigh. Does not extend to the scrotum there is no scrotal skin thickening or crepitus.) Focused Exam Lactate Level 03/29/20 19:15: Lactic Acid Level 3.18*H Lactic Acid Level Laboratory Tests Test 03/29/20 19:15 Lactic Acid Level 3.18 MMOL/L (0.50-2.00) *H Procedures/Interventions I&D : Blade Size: 11 Packing/Drain: Idoform / Progress Small amount of purulent material expressed from the incision made through the fluctuant abscess left thigh. Overlying skin was anesthetized with 1 mL of 1% lidocaine without epinephrine. Culture of that was collected and sent to lab. Progress/Results/Core Measures Suspected Sepsis SIRS Temperature: Pulse: Respiratory Rate: Laboratory Tests 03/29/20 18:55: White Blood Count 19.1H Blood Pressure / Mean: 03/29/20 19:15: Lactic Acid Level 3.18*H Laboratory Tests 03/29/20 18:55: Platelet Count 133 03/29/20 19:04: Creatinine 0.96, Total Bilirubin 1.0 Results/Orders Lab Results Laboratory Tests Test 03/29/20 18:55 03/29/20 19:04 03/29/20 19:15 Range/Units White Blood Count 19.1 H 4.3-11.0 10^3/uL Red Blood Count 5.51 4.35-5.85 10^6/uL Hemoglobin 15.4 13.3-17.7 G/DL Hematocrit 47 40-54 % Mean Corpuscular Volume 85 80-99 FL Mean Corpuscular Hemoglobin 28 25-34 PG Mean Corpuscular Hemoglobin Concent 33 32-36 G/DL Red Cell Distribution Width 14.5 10.0-14.5 % Platelet Count 133 130-400 10^3/uL Mean Platelet Volume 9.7 7.4-10.4 FL Neutrophils (%) (Auto) 80 H 42-75 % Lymphocytes (%) (Auto) 10 L 12-44 % Monocytes (%) (Auto) 9 0-12 % Eosinophils (%) (Auto) 1 0-10 % Basophils (%) (Auto) 0 0-10 % Neutrophils # (Auto) 15.2 H 1.8-7.8 X 10^3 Lymphocytes # (Auto) 2.0 1.0-4.0 X 10^3 Monocytes # (Auto) 1.7 H 0.0-1.0 X 10^3 Eosinophils # (Auto) 0.2 0.0-0.3 10^3/uL Basophils # (Auto) 0.0 0.0-0.1 10^3/uL Neutrophils % (Manual) 77 % Lymphocytes % (Manual) 10 % Monocytes % (Manual) 11 % Eosinophils % (Manual) 2 % Anisocytosis SLIGHT Microcytosis SLIGHT Sodium Level 132 L 135-145 MMOL/L Potassium Level 4.1 3.6-5.0 MMOL/L Chloride Level 95 L 98-107 MMOL/L Carbon Dioxide Level 26 21-32 MMOL/L Anion Gap 11 5-14 MMOL/L Blood Urea Nitrogen 18 7-18 MG/DL Creatinine 0.96 0.60-1.30 MG/DL Estimat Glomerular Filtration Rate > 60 BUN/Creatinine Ratio 19 Glucose Level 323 H 70-105 MG/DL Calcium Level 9.1 8.5-10.1 MG/DL Corrected Calcium 9.7 8.5-10.1 MG/DL Total Bilirubin 1.0 0.1-1.0 MG/DL Aspartate Amino Transf (AST/SGOT) 13 5-34 U/L Alanine Aminotransferase (ALT/SGPT) 16 0-55 U/L Alkaline Phosphatase 118 40-136 U/L Total Protein 7.1 6.4-8.2 GM/DL Albumin 3.3 3.2-4.5 GM/DL Urine Color YELLOW Urine Clarity CLEAR Urine pH 6.0 5-9 Urine Specific [place] >=1.030 1.016-1.022 Urine Protein 3+ H NEGATIVE Urine Glucose (UA) 1+ H NEGATIVE Urine Ketones NEGATIVE NEGATIVE Urine Nitrite NEGATIVE NEGATIVE Urine Bilirubin 1+ H NEGATIVE Urine Urobilinogen 1.0 < = 1.0 MG/DL Urine Leukocyte Esterase NEGATIVE NEGATIVE Urine RBC (Auto) NEGATIVE NEGATIVE Urine RBC NONE /HPF Urine WBC 10-25 H /HPF Urine Squamous Epithelial Cells 2-5 /HPF Urine Crystals PRESENT H /LPF Urine Amorphous Sediment FEW ARACELI URATES H /LPF Urine Bacteria MODERATE H /HPF Urine Casts NONE /LPF Urine Mucus MODERATE H /LPF Urine Culture Indicated YES Lactic Acid Level 3.18 *H 0.50-2.00 MMOL/L My Orders Orders - ANGEL FELIZ APRN Blood Culture (03/29/20 18:30) Lactic Acid Analyzer (03/29/20 18:30) Cbc With Automated Diff (03/29/20 18:30) Comprehensive Metabolic Panel (03/29/20 18:30) Ua Culture If Indicated (03/29/20 18:30) Ed Iv/Invasive Line Start (03/29/20 18:30) Wound Culture (03/29/20 18:30) Acetaminophen Tablet (Tylenol Tablet) (03/29/20 18:30) Ibuprofen Tablet (Motrin Tablet) (03/29/20 18:30) Lactated Ringers (Lr 1000 Ml Iv Solution (03/29/20 18:30) Accucheck Stat ONCE (03/29/20 18:30) Lidocaine 1% Inj 20 Ml (Xylocaine 1% Inj (03/29/20 18:45) Chest 1 View, Ap/Pa Only (03/29/20 18:35) Manual Differential (03/29/20 18:55) Urine Culture (03/29/20 19:15) Piperacillin Sodium/Tazobactam (Zosyn Vi (03/29/20 19:45) Vancomycin Injection (Vancomycin Injecti (03/29/20 19:45) Medications Given in ED Current Medications Medications Dose Ordered Sig/Abigail Route Start Time Stop Time Status Last Admin Dose Admin Acetaminophen 1,000 mg ONCE ONCE PO 03/29/20 18:30 03/29/20 18:32 DC 03/29/20 19:09 1,000 MG Ibuprofen 800 mg ONCE ONCE PO 03/29/20 18:30 03/29/20 18:32 DC 03/29/20 19:09 800 MG Lidocaine HCl 2 ml ONCE ONCE INJ 03/29/20 18:45 03/29/20 18:46 DC 03/29/20 19:09 2 ML Vital Signs/I&O 03/29/20 03/29/20 03/29/20 19:13 19:34 20:13 Temp 39.0 38.9 38.3 Pulse 107 109 104 Resp 18 18 18 B/P (MAP) 120/102 (108) 140/83 120/73 Pulse Ox 92 91 93 O2 Delivery Room Air Room Air Nasal Cannula O2 Flow Rate 2.00 Capillary Refill : Departure Communication (Admissions) Time/Spoke to Admitting Phy: 19:[address] Ledesma, will admit on zosyn and vancomycin, consult surgery. at this time I do not have concern for Brandie's gangrene. Time/Spoke to Consulting Phy: 19:[address] Worley, we will admit, he'll see the patient tomorrow morning. Impression Primary Impression: Sepsis Additional Impressions: S/P bilateral below knee amputation Abscess UTI (urinary tract infection) Disposition: ADMITTED INPATIENT Condition: Stable Admissions Decision to Admit Reason: Admit from ER (General) Decision to Admit/Date: March 29, 2020 Time/Decision to Admit Time: 18:35 Departure-Patient Inst. Referrals: [facility] (PCP/Family) Primary Care Physician ANGEL FELIZ WELDER FITTER HELPER March 29, 2020 18:35
[2020-03-29] MEDS ORDERED: LIDOCAINE 1% INJ 20 ML 20 ML VIAL INJ ONE (18:45)
[2020-03-29 19:06] LABS: BASOPHILS % (AUTO) 0 % (0-10); EOSINOPHILS # (AUTO) 0.2 10^3/uL (0.0-0.3); EOSINOPHILS % (AUTO) 1 % (0-10); HEMATOCRIT 47 % (40-54); HEMOGLOBIN 15.4 G/DL (13.3-17.7); LYMPHOCYTES % (AUTO) 10 % (12-44); MEAN CORPUSCULAR HEMOGLOBIN 28 PG (25-34); MEAN CORPUSCULAR HGB CONC 33 G/DL (32-36); MEAN CORPUSCULAR VOLUME 85 FL (80-99); MEAN PLATELET VOLUME 9.7 FL (7.4-10.4); MONOCYTES # (AUTO) 1.7 X 10^3 (0.0-1.0); MONOCYTES % (AUTO) 9 % (0-12); NEUTROPHILS # (AUTO) 15.2 X 10^3 (1.8-7.8); NEUTROPHILS % (AUTO) 80 % (42-75); PLATELET COUNT 133 10^3/uL (130-400); RED CELL DISTRIBUTION WIDTH 14.5 % (10.0-14.5); WHITE BLOOD COUNT 19.1 10^3/uL (4.3-11.0)
[2020-03-29 19:24] LABS: CLARITY,URINE CLEAR; COLOR,URINE YELLOW; GLUCOSE, URINE (UA) 1+ (NEGATIVE); KETONES,URINE NEGATIVE (NEGATIVE); LEUKOCYTE ESTERASE ,URINE NEGATIVE (NEGATIVE); NITRITE,URINE NEGATIVE (NEGATIVE); PROTEIN,URINE 3+ (NEGATIVE)
--- NOTE | 2020-03-29 19:29 | Diagnostic Imaging Report ---
INDICATION: Septic wound FINDINGS: Portable upright view of the chest does not include the right costophrenic angle. Heart size remains upper normal with normal vascularity. Lungs are clear. IMPRESSION: Negative chest. Dictated by: Dictated on workstation # [id number]
[2020-03-29 19:35] LABS: ALANINE AMINOTRANSFERASE 16 U/L (0-55); ALBUMIN 3.3 GM/DL (3.2-4.5); ALKALINE PHOSPHATASE 118 U/L (40-136); BUN/CREATININE RATIO 19; CALCIUM 9.1 MG/DL (8.5-10.1); CARBON DIOXIDE 26 MMOL/L (21-32); CHLORIDE 95 MMOL/L (98-107); CREATININE SERUM 0.96 MG/DL (0.60-1.30); GFR ESTIMATED > 60; GLUCOSE 323 MG/DL (70-105); POTASSIUM 4.1 MMOL/L (3.6-5.0); SODIUM 132 MMOL/L (135-145); TOTAL PROTEIN 7.1 GM/DL (6.4-8.2)
[2020-03-29 19:39] LABS: BACTERIA,URINE MODERATE /HPF; BILIRUBIN,URINE 1+ (NEGATIVE)
[2020-03-29 19:40] LABS: AMORPHOUS SEDIMENT,UR FEW AMOR URATES /LPF
[2020-03-29 19:41] LABS: ANISOCYTOSIS SLIGHT; EOSINOPHILS % (MANUAL) 2 %; LYMPHOCYTES % (MANUAL) 10 %; MICROCYTOSIS SLIGHT; MONOCYTES % (MANUAL) 11 %; NEUTROPHILS % (MANUAL) 77 %
[2020-03-29] MEDS ORDERED: PIPERACILLIN SODIUM/TAZOBACTAM 4.5 GM in NS (IVPB) 100 ML IV ONE (19:45)
[2020-03-29] MEDS ORDERED: VANCOMYCIN INJECTION 2,000 MG in NS IV 500 ML 500 ML IV SCH (19:45)
--- NOTE | 2020-03-29 20:11 | NUR ---
awaiting staff to arrive to hospital to take pt upstairs. pt informed of anticipated wait time. no needs at this time.
[2020-03-29] MEDS ORDERED: NS IV 1000 ML 1,000 ML ONE (21:04)
[2020-03-29 21:17] VITALS: BP 121/64
[2020-03-29 21:30] VITALS: BP 98/62
[2020-03-29] MEDS ORDERED: CATHETER FLUSH 10 ML SYR IV PRN (21:30)
[2020-03-29 21:45] VITALS: BP 108/98
[2020-03-29 22:00] VITALS: BP 110/56
[2020-03-29] MEDS: NS IV 1000 ML 1,000 ML IV SCH (22:19)
[2020-03-29] MEDS: CATHETER FLUSH 10 ML SYR IV SCH (22:20)
[2020-03-29 23:00] VITALS: BP 101/61
[2020-03-30] VITALS (14 sets, daily range): BP systolic 99–191; BP diastolic 56–93
[2020-03-30] MEDS ORDERED: RT-ALBUTEROL/IPRATROPIUM 3 ML (DUONEB) VIAL INH PRN (00:45)
[2020-03-30] MEDS: RT-ALBUTEROL/IPRATROPIUM 3 ML (DUONEB) VIAL INH SCH ×5 (01:49→21:42)
[2020-03-30] MEDS ORDERED: NS (IVPB) 100 ML ONE (02:49)
[2020-03-30] MEDS ORDERED: PIPERACILLIN/TAZO 4.5 GM VIAL (ZOSYN) IV ONE (02:49)
[2020-03-30] MEDS: PIPERACILLIN/TAZO 4.5 GM/NS 100 ML IV SCH ×6 (03:10→17:41)
[2020-03-30] MEDS: IBUPROFEN 600 MG (MOTRIN) TAB PO PRN ×2 (03:14→20:01)
[2020-03-30 03:50] LABS: BASOPHILS % (AUTO) 0 % (0-10); EOSINOPHILS # (AUTO) 0.3 10^3/uL (0.0-0.3); EOSINOPHILS % (AUTO) 2 % (0-10); HEMATOCRIT 46 % (40-54); HEMOGLOBIN 14.6 G/DL (13.3-17.7); LYMPHOCYTES % (AUTO) 11 % (12-44); MEAN CORPUSCULAR HEMOGLOBIN 28 PG (25-34); MEAN CORPUSCULAR HGB CONC 32 G/DL (32-36); MEAN CORPUSCULAR VOLUME 88 FL (80-99); MEAN PLATELET VOLUME 9.8 FL (7.4-10.4); MONOCYTES # (AUTO) 1.7 X 10^3 (0.0-1.0); MONOCYTES % (AUTO) 10 % (0-12); NEUTROPHILS # (AUTO) 13.7 X 10^3 (1.8-7.8); NEUTROPHILS % (AUTO) 78 % (42-75); PLATELET COUNT 145 10^3/uL (130-400); RED CELL DISTRIBUTION WIDTH 14.6 % (10.0-14.5); WHITE BLOOD COUNT 17.7 10^3/uL (4.3-11.0)
[2020-03-30 04:01] LABS: ALBUMIN 3.1 GM/DL (3.2-4.5)
[2020-03-30 04:02] LABS: CHLORIDE 99 MMOL/L (98-107); POTASSIUM 4.1 MMOL/L (3.6-5.0); SODIUM 136 MMOL/L (135-145)
[2020-03-30 04:03] LABS: CALCIUM 8.7 MG/DL (8.5-10.1)
[2020-03-30 04:04] LABS: GLUCOSE 251 MG/DL (70-105); TOTAL PROTEIN 6.9 GM/DL (6.4-8.2)
[2020-03-30 04:05] LABS: CARBON DIOXIDE 26 MMOL/L (21-32)
[2020-03-30 04:06] LABS: BILIRUBIN,TOTAL 0.9 MG/DL (0.1-1.0)
[2020-03-30 04:07] LABS: ALKALINE PHOSPHATASE 129 U/L (40-136)
[2020-03-30 04:08] LABS: CREATININE SERUM 1.19 MG/DL (0.60-1.30); GFR ESTIMATED > 60
[2020-03-30 04:09] LABS: BUN/CREATININE RATIO 17
[2020-03-30 04:11] LABS: ALANINE AMINOTRANSFERASE 12 U/L (0-55)
[2020-03-30] MEDS: CATHETER FLUSH 10 ML SYR IV SCH ×3 (06:31→21:41)
[2020-03-30] MEDS: NS IV 1000 ML 1,000 ML IV SCH ×2 (06:31→14:10)
[2020-03-30] MEDS: inSUlin ASPART (NovoLOG) 1 UNIT/0.01 ML (CHARGE PER UNIT) SC SCH ×4 (06:34→20:27)
--- NOTE | 2020-03-30 07:24 | NUR ---
VANCOMYCIN 2G GIVEN IN ED 03/29 ~ 1999; SCr 1.19, CrCl 119.6; 15MG/KG X 179.3KG = 2690 ~ 2G Q12H MAINTENANCE DOSE BASED ON PREVIOUS DOSING/TROUGH RESULTS IN EMR; VANCOMYCIN TROUGH DUE 03/31 @ 0700; IF TROUGH >20, HOLD 03/31 0800 DOSE AND NOTIFY PHARMACY FOR ADJUSTMENTS
[2020-03-30] MEDS: VANCOMYCIN 2000 MG/NS 500 ML IVPB IV SCH ×4 (09:01→20:01)
[2020-03-30] MEDS ORDERED: GABA800T10 PO (10:10)
[2020-03-30] MEDS ORDERED: PANT40TA3 PO (10:10)
[2020-03-30] MEDS ORDERED: LOSA50TA63 PO (10:10)
[2020-03-30] MEDS ORDERED: VARE1TAB22 PO (10:10)
[2020-03-30] MEDS ORDERED: MELO7.5T46 PO (10:26)
[2020-03-30] MEDS ORDERED: ATOR80TA76 PO (10:26)
[2020-03-30] MEDS ORDERED: TMSL.4C PO (10:26)
[2020-03-30] MEDS ORDERED: INSU100I23 SQ (10:28)
[2020-03-30] MEDS ORDERED: IBUP-2473 PO (10:28)
[2020-03-30] MEDS ORDERED: INSU200I4 SQ (10:28)
--- NOTE | 2020-03-30 10:29 | NUR ---
SPOKE WITH THE PT, WENT THRU THE EXT MED HISTORY AND CALLED [facility] TO COMPLETE THE MED REC THE FOLLOWING MEDICATIONS ARE PAST DUE ON REFILLS ( I DID DOCUMENT THIS ON THE MED REC), PT ADMITTED THAT AT THE FIRST OF THE YEAR HE STOPPED TAKING HIS MEDS AND BECAME NON-COMPLIANT, BUT PT SAYS HE IS TAKING THEM PRESCRIBED NOW: 10-31-2019 MELOXICAM 7.5MG #180/90DS 10-31-2019 ATORVASTATIN 80MG #90/90DS 11-03-2019 TRULICITY 0.75MG/0.5ML #6/90DS 11-10-2019 TAMSULOSIN 0.4MG #90/90DS 11-10-2019 GLIPIZIDE 10MG #90/90DS PT TAKES IBUPROFEN 200MG (OTC) AND TAKES 4TABS Q 4 HOURS PRN Addendum: 03/30/20 at 1034 by GLORIA JACOBSEN internal combustion engine inspector IN NOVEMBER 2019 PT WAS PRESCRIBED AMITRIPTYLINE 10MG BUT THE PT IS NO LONGER TAKING
--- NOTE | 2020-03-30 12:15 | NUR ---
RECEIVED PT IN ROOM AND REPORT FROM ANEL RODRIGUEZ ICU. I HAVE REVIEWD HER ASSESSMENT AND AGREE WITH IT. PT IS SITTING UP EATING LUNCH WITH FLUIDS AND ANTIBIOTICS RUNNING AT THIS TIME.
[2020-03-30] MEDS: ACETAMINOPHEN 325 MG TABLET PO PRN (14:41)
--- NOTE | 2020-03-30 17:45 | NUR ---
PER . DO NOT REPACK WOUND, JUST WATCH IT TILL TOMORROW.
--- NOTE | 2020-03-30 20:12 | History & Physical ---
HPI History of Present Illness: 55 yo M with uncontrolled IDDM that presented with left upper thigh/groin abscess. Patient has known h/o multiple abscesses and poor wound healing. Patient has bilateral BKA. Denies any fever or chills. States that he noticed the area about 1 week ago and has been doing warm compresses. Denies any drainage. + ttp. Date seen by provider: March 30, 2020 Time Seen by Provider: 09:30 Attending Physician Kelsea Ledesma MD PCP [place] Consult Date of Admission March 29, 2020 at 19:17 Home Medications Home Medications Reviewed patient Home Medication Reconciliation performed by pharmacy medication reconciliations plc technician and/or nursing. Patients Allergies have been reviewed. Allergies Coded Allergies: pregabalin (Unverified Allergy, Severe, FEVER, 04/26/15) LGT-Tyjara-Glxcal Hx Patient Social History Living Status: Lives at home with Alcohol Use: Denies Use Recreational Drug Use: Yes (marijuana) Drug of Choice: E.D. REPORT: HX OF METH, LSD,ECSTASY,CRACK COCAINE, MUSHROOMS Smoking Status: Light Tobacco Smoker Type Used: Cigarettes 2nd Hand Smoke Exposure: No Recent Foreign Travel: No Contact w/other who traveled: No Recent Hopitalizations: No Recent Infectious Disease Expo: No Physical Abuse Screen: No Sexual Abuse: No Immunizations Up To Date Tetanus Booster (TDap): Unknown Date of Pneumonia Vaccine: March 29, 2019 Date of Influenza Vaccine: May 28, 2018 Past Medical History PMHx: Chronic pain IDDMII HTN HLD Atherosclerotic occlusive disease with bilateral BKA SurgHx: Right BKA Left great toe, 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 Left thigh hematoma evacuation Family Medical History Significant Family History: Heart Disease, Diabetes Family History: Cardiovascular disease 19 FATHER ( heart attack) G8 BROTHER Diabetes mellitus 19 MOTHER ( complications diabetes) Psychosocial problem G8 BROTHER (in jail) Review of Systems ([facility]) Constitutional: no symptoms reported; No chills, No fever EENTM: no symptoms reported; No mouth pain, No nose congestion, No nose pain Respiratory: no symptoms reported; No cough, No dyspnea on exertion, No short of breath Cardiovascular: no symptoms reported; No chest pain, No edema, No palpitations Gastrointestinal: no symptoms reported; No abdominal pain, No constipation, No loss of appetite, No nausea, No vomiting Genitourinary: no symptoms reported; No dysuria, No frequency, No hematuria Musculoskeletal: no symptoms reported; No back pain Skin: rash Psychiatric/Neurological: Headache Reviewed Test Results Reviewed Test Results Lab Laboratory Tests Test 03/29/20 21:20 03/30/20 03:24 03/30/20 06:30 03/30/20 11:03 Range/Units Lactic Acid Level 1.33 0.50-2.00 MMOL/L White Blood Count 17.7 H 4.3-11.0 10^3/uL Red Blood Count 5.27 4.35-5.85 10^6/uL Hemoglobin 14.6 13.3-17.7 G/DL Hematocrit 46 40-54 % Mean Corpuscular Volume 88 80-99 FL Mean Corpuscular Hemoglobin 28 25-34 PG Mean Corpuscular Hemoglobin Concent 32 32-36 G/DL Red Cell Distribution Width 14.6 H 10.0-14.5 % Platelet Count 145 130-400 10^3/uL Mean Platelet Volume 9.8 7.4-10.4 FL Neutrophils (%) (Auto) 78 H 42-75 % Lymphocytes (%) (Auto) 11 L 12-44 % Monocytes (%) (Auto) 10 0-12 % Eosinophils (%) (Auto) 2 0-10 % Basophils (%) (Auto) 0 0-10 % Neutrophils # (Auto) 13.7 H 1.8-7.8 X 10^3 Lymphocytes # (Auto) 2.0 1.0-4.0 X 10^3 Monocytes # (Auto) 1.7 H 0.0-1.0 X 10^3 Eosinophils # (Auto) 0.3 0.0-0.3 10^3/uL Basophils # (Auto) 0.0 0.0-0.1 10^3/uL Sodium Level 136 135-145 MMOL/L Potassium Level 4.1 3.6-5.0 MMOL/L Chloride Level 99 98-107 MMOL/L Carbon Dioxide Level 26 21-32 MMOL/L Anion Gap 11 5-14 MMOL/L Blood Urea Nitrogen 20 H 7-18 MG/DL Creatinine 1.19 0.60-1.30 MG/DL Estimat Glomerular Filtration Rate > 60 BUN/Creatinine Ratio 17 Glucose Level 251 H 70-105 MG/DL Calcium Level 8.7 8.5-10.1 MG/DL Corrected Calcium 9.4 8.5-10.1 MG/DL Total Bilirubin 0.9 0.1-1.0 MG/DL Aspartate Amino Transf (AST/SGOT) 12 5-34 U/L Alanine Aminotransferase (ALT/SGPT) 12 0-55 U/L Alkaline Phosphatase 129 40-136 U/L Total Protein 6.9 6.4-8.2 GM/DL Albumin 3.1 L 3.2-4.5 GM/DL Glucometer 270 H 355 H 70-110 MG/DL Test 03/30/20 16:24 Range/Units Glucometer 393 H 70-110 MG/DL Physical Exam-([facility]) Physical Exam Vital Signs VS - Last 72 Hours, by Label 03/29/20 03/29/20 03/29/20 03/29/20 19:13 19:34 20:13 21:15 Temp 39.0 38.9 38.3 Pulse 107 109 104 Resp 18 18 18 B/P (MAP) 120/102 (108) 140/83 120/73 Pulse Ox 92 91 93 O2 Delivery Room Air Room Air Nasal Cannula Nasal Cannula O2 Flow Rate 2.00 2.00 03/29/20 03/29/20 03/29/20 03/29/20 21:17 21:18 21:19 21:30 Temp 36.8 Pulse 88 94 87 Resp 24 14 B/P (MAP) 121/64 (83) 98/62 (74) Pulse Ox 93 93 94 O2 Delivery Nasal Cannula Nasal Cannula Nasal Cannula O2 Flow Rate 2.00 2.00 2.00 03/29/20 03/29/20 03/29/20 03/30/20 21:45 22:00 23:00 00:00 Pulse 86 84 80 83 Resp 14 16 14 14 B/P (MAP) 108/98 (101) 110/56 (74) 101/61 (74) 121/61 (81) Pulse Ox 94 91 93 92 O2 Delivery Nasal Cannula Nasal Cannula Nasal Cannula Nasal Cannula O2 Flow Rate 2.00 2.00 2.00 2.00 03/30/20 03/30/20 03/30/20 03/30/20 00:00 00:34 00:59 01:00 Temp 36.8 36.1 Pulse 84 86 Pulse Ox 93 O2 Delivery Nasal Cannula O2 Flow Rate 2.00 03/30/20 03/30/20 03/30/20 03/30/20 01:00 01:49 02:00 03:00 Pulse 80 77 81 Resp 12 13 14 B/P (MAP) 99/62 (74) 104/61 (75) 125/65 (85) Pulse Ox 94 94 94 94 O2 Delivery Nasal Cannula Nasal Cannula Nasal Cannula Nasal Cannula O2 Flow Rate 2.00 2.50 2.00 2.00 03/30/20 03/30/20 03/30/20 03/30/20 03:15 03:41 04:00 05:00 Temp 36.4 Pulse 79 86 Resp 14 18 B/P (MAP) 125/70 (88) 116/77 (90) Pulse Ox 93 96 O2 Delivery Nasal Cannula Nasal Cannula Nasal Cannula O2 Flow Rate 2.00 2.00 2.00 03/30/20 03/30/20 03/30/20 03/30/20 06:00 07:00 08:00 08:00 Pulse 79 86 Resp 16 B/P (MAP) 128/70 (89) Pulse Ox 95 96 O2 Delivery Nasal Cannula Nasal Cannula Nasal Cannula O2 Flow Rate 2.00 2.00 2.00 03/30/20 03/30/20 03/30/20 03/30/20 08:00 08:00 10:20 12:00 Temp 36.2 Pulse 87 Resp 17 B/P (MAP) 121/68 (85) Pulse Ox 93 94 O2 Delivery Nasal Cannula Nasal Cannula Nasal Cannula O2 Flow Rate 2.00 2.50 2.00 03/30/20 03/30/20 03/30/20 03/30/20 12:00 12:00 12:50 13:56 Temp 36.8 36.7 36.7 Pulse 87 96 89 Resp 18 B/P (MAP) 131/70 (90) 191/93 (125) Pulse Ox 94 99 98 O2 Delivery Nasal Cannula Nasal Cannula O2 Flow Rate 2.00 2.00 FiO2 28 03/30/20 03/30/20 03/30/20 03/30/20 15:52 16:00 16:54 18:38 Temp 36.3 Pulse 93 Resp 22 B/P (MAP) 131/67 (88) Pulse Ox 88 93 88 93 O2 Delivery Room Air Nasal Cannula Room Air Room Air O2 Flow Rate 2.00 2.00 2.00 Capillary Refill : Less Than 3 Seconds General Appearance: WD/WN, no apparent distress HEENT: PERRL/EOMI Neck: non-tender, full range of motion, supple Respiratory: chest non-tender, lungs clear, normal breath sounds, no respiratory distress, no accessory muscle use Cardiovascular: normal peripheral pulses, regular rate, rhythm, no edema, no murmur Gastrointestinal: normal bowel sounds, non tender, soft Back: no CVA tenderness, no vertebral tenderness Extremities: other (bilateral BKA) Neurologic/Psychiatric: general helper II-XII nml as tested, alert, oriented x 3 Skin: other (Left groin wound with minimal drainage, + induration and ttp) Assessment/Plan Assessment/Plan Admission Status: Inpatient Order (span 2 midnights) Reason for Inpatient Admission: Patient requires IV antibiotics and surgical consult (1) Abscess of left thigh Status: Acute Assessment & Plan: - General Surgery consulted, patient has h/o MRSA, on Zosyn/Vanc (2) IDDM (insulin dependent diabetes mellitus) Status: Chronic Assessment & Plan: - Patient NPO, given 1/2 of normal required insulin, SSI (3) Hypertension Status: Chronic Assessment & Plan: - Continue home meds Qualifiers: Qualified Codes: I10 - Essential (primary) hypertension (4) Peripheral vascular disease Status: Chronic (5) Debility Status: Chronic (6) DVT prophylaxis Status: Acute Assessment & Plan: - SCDs, hold lovenox for possible debridment surgery in AM Clinical Quality Measures DVT/VTE Risk/Contraindication: Risk Factor Score Per Nursin RFS Level Per Nursing on Admit: 4+=Very High KELSEA LEDESMA MD March 30, 2020 20:12
[2020-03-30] MEDS ORDERED: PANTOPRAZOLE 40 MG (PROTONIX) TAB PO PRN (20:15)
--- NOTE | 2020-03-30 20:23 | Consultation - Surgery ---
History of Present Illness History of Present Illness Patient Consulted On(dyana/time) 03/30/20 20:18 Date Seen by Provider: March 30, 2020 Time Seen by Provider: 08:07 History of Present Illness Consult requested by Dr. Ledesma for left groin abscess. Patient is a 55-year-old male with left groin abscess he states is been there for approximately one week. Mild to moderate tenderness. Even placing warm packs on this area with no improvement. He did become more fluctuant and he had incision and drainage performed in the emergency department last night. Patient states his blood sugars have not been under control. He had fever and tachycardia when he presented to the emergency department He has moderate to severe pain in the left groin area he's had a little bit of drainage since incision and drainage was performed. His pain is controlled. Nothing seemed to make it better nothing seemed to make it worse. He has history of abscesses he states. Currently he denies any fever sweats chills shortness of breath or chest pain. Allergies and Home Medications Allergies Coded Allergies: pregabalin (Unverified Allergy, Severe, FEVER, 04/26/15) Home Medications Albuterol Sulfate 1 Puff Puff, 2 PUFF INH Q4H PRN for SHORTNESS OF BREATH, (Reported) Atorvastatin Calcium 80 Mg Tablet, 80 MG PO DAILY, (Reported) 10-31-2019 # DAY SUPPLY Budesonide/Formoterol Fumarate 10.2 Gm Hfa.aer.ad, 2 PUFF IH BID, (Reported) Dulaglutide 0.75 Mg/0.5 Ml Pen.injctr, 0.75 MG SQ WEEK, (Reported) LAST FILLED 11-03-2019 # DAY SUPPLY Gabapentin 800 Mg Tablet, 800 MG PO TID, (Reported) Glipizide 10 Mg Tablet, 10 MG PO DAILY, (Reported) LAST FILLED 11-10-2019 #90/ DAY SUPPLY Ibuprofen 200 Mg Tablet, 800 MG PO QID PRN for PAIN-MILD (1-4), (Reported) TAKES 4 (200MG) TABS FOUR TIMES A DAY Insulin Degludec 200 Unit/1 Ml Insuln.pen, 96 UNIT SQ 2000, (Reported) Insulin Lispro 100 Unit/1 Ml Insuln.pen, 75 UNIT SQ AC, (Reported) Losartan Potassium 50 Mg Tablet, 50 MG PO DAILY, (Reported) Meloxicam 7.5 Mg Tablet, 7.5 MG PO BID, (Reported) LAST FILLED 10-31-2019 #180/90 DAY SUPPLY Pantoprazole Sodium 40 Mg Tablet.dr, 40 MG PO DAILY PRN for HEARTBURN, (Reported) Tamsulosin HCl 0.4 Mg Cap, 0.4 MG PO DAILY, (Reported) LAST FILLED 11-10-2019 #90/90 DAY SUPPLY Varenicline Tartrate 1 Mg Tablet, 1 MG PO BID, (Reported) Patient Home Medication List Home Medication List Reviewed: Yes Past Twsyjnw-Swstff-Lmqpqr Hx Patient Social History Alcohol Use: Denies Use Recreational Drug Use: Yes (marijuana) Drug of Choice: E.D. REPORT: HX OF METH, LSD,ECSTASY,CRACK COCAINE, MUSHROOMS Smoking Status: Light Tobacco Smoker Type Used: Cigarettes 2nd Hand Smoke Exposure: No Recent Foreign Travel: No Contact w/Someone Who Travel: No Recent Infectious Disease Expo: No Recent Hopitalizations: No Physical Abuse Screen: No Sexual Abuse: No Immunizations Up To Date Tetanus Booster (TDap): Unknown PED Vaccines UTD: Yes Date of Pneumonia Vaccine: March 29, 2019 Date of Influenza Vaccine: May 28, 2018 Seasonal Allergies Seasonal Allergies: Yes (Hay fever, Pollen) Surgeries History of Surgeries: Yes Surgeries: Amputation, Orthopedic Respiratory History of Respiratory Disorde: Yes Respiratory Disorders: Asthma, Sleep Apnea, COPD Cardiovascular History of Cardiac Disorders: No Cardiac Disorders: Chronic Edema/Swelling, Coronary Artery Disease, High Cholesterol, Hypertension, Peripheral Vascular Neurological History of Neurological Disord: No Neurological Disorders: Neuropathy Reproductive System Hx Reproductive Disorders: No Sexually Transmitted Disease: No HIV/AIDS: No Genitourinary History of Genitourinary Disor: Yes Genitourinary Disorders: UTI-Chronic Gastrointestinal History of Gastrointestinal Di: No Gastrointestinal Disorders: Gastroesophageal Reflux, Chronic Constipation, Hiatal Hernia Musculoskeletal History of Musculoskeletal Dis: Yes (bilat lower extremity amputation) Musculoskeletal Disorders: Amputee, Arthritis, Back Injury Endocrine History of Endocrine Disorders: Yes Endocrine Disorders: Diabetes, Insulin dep HEENT History of HEENT Disorders: No Loss of Vision: Denies Hearing Impairment: Denies Cancer History of Cancer: No Psychosocial History of Psychiatric Problem: No Integumentary History of Skin or Integumenta: No Blood Transfusions History of Blood Disorders: No Adverse Reaction to a Blood Tr: No Reviewed Nursing Assessment Reviewed/Agree w Nursing PMH: Yes Family Medical History Significant Family History: Heart Disease, Diabetes Family Medial History: Cardiovascular disease 19 FATHER ( heart attack) G8 BROTHER Diabetes mellitus 19 MOTHER ( complications diabetes) Psychosocial problem G8 BROTHER (in long-term) Review of Systems-General Constitutional: No chills, No diaphoresis EENTM: No hearing loss, No ear pain, No blurred vision, No double vision Respiratory: No cough, No dyspnea on exertion Cardiovascular: No chest pain Gastrointestinal: no symptoms reported; No abdominal pain, No constipation, No nausea, No vomiting Genitourinary: other (uti) Musculoskeletal: No back pain, No gout, No joint pain Skin: change in color; No change in hair/nails Psychiatric/Neurological: Denies Anxiety, Denies Depressed Physical Exam-General Problems Physical Exam Vital Signs Vital Signs - First Documented 03/29/20 03/29/20 03/30/20 19:13 20:13 13:56 Temp 39.0 Pulse 107 Resp 18 B/P (MAP) 120/102 (108) Pulse Ox 92 O2 Delivery Room Air O2 Flow Rate 2.00 FiO2 28 Capillary Refill : Less Than 3 Seconds General Appearance: WD/WN, no apparent distress HEENT: PERRL/EOMI, normal ENT inspection Neck: non-tender, full range of motion, supple Respiratory: chest non-tender, no respiratory distress, no accessory muscle use Cardiovascular: regular rate, rhythm Gastrointestinal: non tender, soft Rectal: deferred Back: no CVA tenderness Extremities: other (left medial thigh small opening from incision and drainage, small amount of thin purulent material and induration, bilateral bka) Neurologic/Psychiatric: no motor/sensory deficits, alert, normal mood/affect, oriented x 3 Skin: normal color (left medial thigh area of slight erythema at incison and drainage site), warm/dry Lymphatic: no adenopathy Data Review Labs Laboratory Tests 03/29/20 21:20: Lactic Acid Level 1.33 03/30/20 03:24: White Blood Count 17.7H, Red Blood Count 5.27, Hemoglobin 14.6, Hematocrit 46, Mean Corpuscular Volume 88, Mean Corpuscular Hemoglobin 28, Mean Corpuscular Hemoglobin Concent 32, Red Cell Distribution Width 14.6H, Platelet Count 145, Mean Platelet Volume 9.8, Neutrophils (%) (Auto) 78H, Lymphocytes (%) (Auto) 11L , Monocytes (%) (Auto) 10, Eosinophils (%) (Auto) 2, Basophils (%) (Auto) 0, Edwardo trophils # (Auto) 13.7H, Lymphocytes # (Auto) 2.0, Monocytes # (Auto) 1.7H, Eosinophils # (Auto) 0.3, Basophils # (Auto) 0.0, Sodium Level 136, Potassium Level 4.1, Chloride Level 99, Carbon Dioxide Level 26, Anion Gap 11, Blood Urea Nitrogen 20H, Creatinine 1.19, Estimat Glomerular Filtration Rate > 60, BUN/Creatinine Ratio 17, Glucose Level 251H, Calcium Level 8.7, Corrected Calcium 9.4, Total Bilirubin 0.9, Aspartate Amino Transf (AST/SGOT) 12, Alanine Aminotransferase (ALT/SGPT) 12, Alkaline Phosphatase 129, Total Protein 6.9, Albumin 3.1L 03/30/20 06:30: Glucometer 270H 03/30/20 11:03: Glucometer 355H 03/30/20 16:24: Glucometer 393H 03/30/20 20:09: Glucometer 384H Microbiology 03/29/20 Urine Culture - Final, Complete 3 or more isolates 03/29/20 Blood Culture - Preliminary, Resulted No growth 03/29/20 Gram Stain - Final, Resulted 03/29/20 Wound Culture - Preliminary, Resulted Gram Pos Mixed Bacterial Merna Assessment/Plan Assessment/Plan Assessment/Plan left medial thigh abscess drained by ER UTI sepsis secondary to above continue abx may need further incision and drainage will follow closely Clinical Quality Measures DVT/VTE Risk/Contraindication: Risk Factor Score Per Nursin RFS Level Per Nursing on Admit: 4+=Very High ARGELIA LECHUGA DO March 30, 2020 20:23
[2020-03-30] MEDS: TAMSULOSIN 0.4 MG (FLOMAX) CAP PO SCH (20:27)
[2020-03-30] MEDS: GABAPENTIN 400 MG (NEURONTIN) CAP PO SCH (20:27)
[2020-03-31] VITALS (11 sets, daily range): BP systolic 103–204; BP diastolic 62–96
[2020-03-31] MEDS: NS IV 1000 ML 1,000 ML IV SCH ×4 (01:28→23:52)
[2020-03-31] MEDS: PIPERACILLIN/TAZO 4.5 GM/NS 100 ML IV SCH ×6 (01:29→16:34)
[2020-03-31] MEDS: RT-ALBUTEROL/IPRATROPIUM 3 ML (DUONEB) VIAL INH SCH ×6 (01:58→21:33)
[2020-03-31] MEDS: inSUlin ASPART (NovoLOG) 1 UNIT/0.01 ML (CHARGE PER UNIT) SC SCH ×7 (06:00→21:47)
[2020-03-31] MEDS: CATHETER FLUSH 10 ML SYR IV SCH ×3 (06:38→22:20)
[2020-03-31 06:39] LABS: BASOPHILS % (AUTO) 0 % (0-10); EOSINOPHILS # (AUTO) 0.2 10^3/uL (0.0-0.3); EOSINOPHILS % (AUTO) 2 % (0-10); HEMATOCRIT 41 % (40-54); HEMOGLOBIN 12.8 G/DL (13.3-17.7); LYMPHOCYTES # (AUTO) 1.5 X 10^3 (1.0-4.0); LYMPHOCYTES % (AUTO) 13 % (12-44); MEAN CORPUSCULAR HEMOGLOBIN 28 PG (25-34); MEAN CORPUSCULAR HGB CONC 31 G/DL (32-36); MEAN CORPUSCULAR VOLUME 88 FL (80-99); MEAN PLATELET VOLUME 9.8 FL (7.4-10.4); MONOCYTES # (AUTO) 1.1 X 10^3 (0.0-1.0); MONOCYTES % (AUTO) 9 % (0-12); NEUTROPHILS # (AUTO) 8.9 X 10^3 (1.8-7.8); NEUTROPHILS % (AUTO) 76 % (42-75); PLATELET COUNT 128 10^3/uL (130-400); RED CELL DISTRIBUTION WIDTH 14.4 % (10.0-14.5); WHITE BLOOD COUNT 11.8 10^3/uL (4.3-11.0)
[2020-03-31 06:59] LABS: BUN/CREATININE RATIO 17; CALCIUM 7.9 MG/DL (8.5-10.1); CARBON DIOXIDE 24 MMOL/L (21-32); CHLORIDE 105 MMOL/L (98-107); CREATININE SERUM 0.89 MG/DL (0.60-1.30); GFR ESTIMATED > 60; GLUCOSE 251 MG/DL (70-105); POTASSIUM 4.1 MMOL/L (3.6-5.0); SODIUM 137 MMOL/L (135-145)
[2020-03-31] MEDS ORDERED: TROUGH ORDER-PHARMACY XX NR (07:00)
[2020-03-31 07:09] LABS: VANCOMYCIN,TROUGH 15.1 UG/ML (10.0-20.0)
[2020-03-31] MEDS: VANCOMYCIN 2000 MG/NS 500 ML IVPB IV SCH ×4 (08:50→20:35)
[2020-03-31] MEDS: GABAPENTIN 400 MG (NEURONTIN) CAP PO SCH ×3 (09:40→20:36)
[2020-03-31] MEDS: LOSARTAN 50 MG (COZAAR) TAB PO SCH (09:40)
--- NOTE | 2020-03-31 11:05 | NUR ---
Patient off floor to surgery at this time.
[2020-03-31] MEDS ORDERED: ONDANSETRON 4 MG/2 ML (SDV) Z0FRAN ONE (11:36)
[2020-03-31] MEDS ORDERED: LIDOCAINE PF 2% 5 ML (XYLOCAINE) VIAL ONE (11:36)
[2020-03-31] MEDS ORDERED: SUCCINYLCHOLINE INJ 100 MG/5 ML SYR ONE (11:36)
[2020-03-31] MEDS ORDERED: proPOfol 200 MG/20 ML (DIPRIVAN) VIAL IV ONE (11:36)
[2020-03-31] MEDS ORDERED: SEVOFLURANE (ULTANE) 15 ML INHAL SOLN ONE (11:36)
[2020-03-31] MEDS ORDERED: MIDAZOLAM 2 MG/2 ML (VERSED) VIAL ONE (11:36)
[2020-03-31] MEDS ORDERED: ROCURONIUM 10 MG/ML 5 ML SYRINGE IV ONE (11:36)
[2020-03-31] MEDS ORDERED: fentaNYL INJECTION 100 MCG/2 ML AMP ONE (11:37)
--- NOTE | 2020-03-31 11:38 | Progress Note - Surgery ---
Subjective Date Seen by a Provider: March 31, 2020 Time Seen by a Provider: 10:44 Subjective/Events-last exam feels like more swollen around the area of left medial thigh. Still with some drainage. No other complaints. Denies n/v fever sweats chills shortness of breath or chest pain. NPO Focused Exam Lactate Level 03/29/20 19:15: Lactic Acid Level 3.18*H 03/29/20 21:20: Lactic Acid Level 1.33 Objective Exam Vital Signs Date Time Temp Pulse Resp B/P (MAP) Pulse Ox O2 Delivery O2 Flow Rate FiO2 03/31/20 08:00 36.6 80 19 94 Nasal Cannula 2.00 03/31/20 08:00 Nasal Cannula 2.00 03/31/20 07:14 90 Nasal Cannula 2.00 03/31/20 07:02 93 Room Air 03/31/20 04:00 36.6 91 19 115/73 (87) 96 NIV CPAP 03/31/20 01:58 78 18 94 35.00 03/31/20 00:00 36.4 87 20 103/62 (76) 95 NIV CPAP 03/30/20 21:42 83 16 92 35.00 03/30/20 20:00 37.1 93 20 126/59 (81) 93 Nasal Cannula 2.00 03/30/20 20:00 Nasal Cannula 2.00 03/30/20 18:38 93 Room Air 2.00 03/30/20 16:54 88 Room Air 2.00 03/30/20 16:00 36.3 93 22 131/67 (88) 93 Nasal Cannula 2.00 03/30/20 15:52 88 Room Air 03/30/20 13:56 36.7 89 98 28 03/30/20 12:50 36.7 96 18 191/93 (125) 99 Nasal Cannula 2.00 03/30/20 12:00 36.8 03/30/20 12:00 87 131/70 (90) 94 Nasal Cannula 2.00 03/30/20 12:00 Nasal Cannula 2.00 I & O 03/31/20 07:00 Intake Total 2330 ml Output Total 2875 ml Balance -545 ml Capillary Refill : Less Than 3 Seconds General Appearance: No Apparent Distress, Chronically ill, Obese Neck: Full Range of Motion, Normal Inspection Respiratory: Chest Non Tender, No Accessory Muscle Use, No Respiratory Distress Cardiovascular: Regular Rate, Rhythm, Tachycardia Gastrointestinal: non tender, soft Extremity: Normal Capillary Refill, Other (he is a bilateral below the knee amputee) Neurologic/Psychiatric: Alert, Oriented x3 Skin: Other (erythematous fluctuant wound to the medial proximal left thigh.) Lymphatic: No Adenopathy Results Lab Laboratory Tests 03/30/20 16:24: Glucometer 393H 03/30/20 20:09: Glucometer 384H 03/31/20 05:56: Glucometer 232H 03/31/20 06:25: White Blood Count 11.8H, Red Blood Count 4.64, Hemoglobin 12.8L, Hematocrit 41, Mean Corpuscular Volume 88, Mean Corpuscular Hemoglobin 28, Mean Corpuscular Hemoglobin Concent 31L, Red Cell Distribution Width 14.4, Platelet Count 128L, Mean Platelet Volume 9.8, Neutrophils (%) (Auto) 76H, Lymphocytes (%) (Auto) 13, Monocytes (%) (Auto) 9, Eosinophils (%) (Auto) 2, Basophils (%) (Auto) 0, Neutrophils # (Auto) 8.9H, Lymphocytes # (Auto) 1.5, Monocytes # (Auto) 1.1H, Eosinophils # (Auto) 0.2, Basophils # (Auto) 0.0, Sodium Level 137, Potassium Level 4.1, Chloride Level 105, Carbon Dioxide Level 24, Anion Gap 8, Blood Urea Nitrogen 15, Creatinine 0.89, Estimat Glomerular Filtration Rate > 60, BUN/Creatinine Ratio 17, Glucose Level 251H, Calcium Level 7.9L, Vancomycin Level Trough 15.1 Microbiology 03/29/20 Urine Culture - Final, Complete 3 or more isolates 03/29/20 Blood Culture - Preliminary, Resulted No growth 03/29/20 Gram Stain - Final, Resulted 03/29/20 Wound Culture - Preliminary, Resulted Gram Pos Mixed Bacterial Merna Assessment/Plan Assessment/Plan Assessment/Plan left medial thigh abscess drained by ER UTI sepsis secondary to above continue abx need further incision and drainage to left medial thigh, he understands risks and benefits. NPO to OR today will follow closely Clinical Quality Measures DVT/VTE Risk/Contraindication: Risk Factor Score Per Nursin RFS Level Per Nursing on Admit: 4+=Very High ARGELIA LECHUGA DO March 31, 2020 11:38
[2020-03-31] MEDS ORDERED: LACTATED RINGERS 1,000 ML IV PRN (11:46)
[2020-03-31] MEDS ORDERED: SUGAMMADEX 500 MG/5 ML VIAL (BRIDION) IV ONE (12:19)
[2020-03-31] MEDS ORDERED: RT-ALBUTEROL SULF 2.5 MG/3 ML PRE-MIX VIAL ONE (12:33)
[2020-03-31] MEDS ORDERED: ONDANSETRON 4 MG/2 ML (SDV) Z0FRAN IVP PRN (12:45)
[2020-03-31] MEDS ORDERED: RT-ALBUTEROL SULF 2.5 MG/3 ML PRE-MIX VIAL INH ONE (12:45)
[2020-03-31] MEDS ORDERED: HYDROmorphone 2 MG/ML VIAL (DILAUDID) IV ONE (12:45)
--- NOTE | 2020-03-31 12:50 | Progress Note-Post Operative ---
Post-Operative Progess Note Surgeon (s)/Home Health Travel Pt (s) Surgeon ARGELIA LECHUGA DO Home Health Travel Pt: na Pre-Operative Diagnosis left medial thigh abscess Post-Operative Diagnosis same Procedure & Operative Findings Date of Procedure 03/31/20 Procedure Performed/Findings incision and drainage left medial thigh abscess with debridement of subcutaneous fat with cautery, 11x4x5.5cm Anesthesia Type gen Estimated Blood Loss Estimated blood loss (mL): min Specimens/Packing Specimens Removed culture ARGELIA LECHUGA DO March 31, 2020 12:50
--- NOTE | 2020-03-31 13:04 | Anesthesia-General Post-Op ---
General Patient Condition Mental Status/LOC: Same as Preop Cardiovascular: Satisfactory Nausea/Vomiting: Absent Respiratory: Satisfactory Pain: Controlled Complications: Absent Post Op Complications Complications None Follow Up Care/Instructions Patient Instructions None needed. Anesthesia/Patient Condition Patient Condition Patient is doing well, no complaints, stable vital signs, no apparent adverse anesthesia problems. No complications reported per nursing. D/C home per [facility] Criteria: KRISTA Masters CRNA March 31, 2020 13:04
--- NOTE | 2020-03-31 13:30 | NUR ---
Patient back from surgery at this time. Report from luly RODRIGUEZ
--- NOTE | 2020-03-31 15:22 | OPERATIVE REPORT ---
DATE OF SERVICE: 03/31/2020 PREOPERATIVE DIAGNOSIS: Left medial thigh abscess. POSTOPERATIVE DIAGNOSIS: Left medial thigh abscess. PROCEDURE: Incision and drainage left medial thigh abscess with debridement of subcutaneous fat with cautery 11 x 4 x 5.5 cm. SURGEON: Argelia Worley DO ANESTHESIA: General. ESTIMATED BLOOD LOSS: Minimal. COMPLICATIONS: None. INDICATIONS: The patient is a 55-year-old male with an abscess to the left medial thigh. He had previous incision and drainage in the Emergency Department. Wound is still draining and felt to have some fluctuance areas to it. He understands risks and benefits of procedure and wished to proceed with procedure. Consent was signed in the chart. DESCRIPTION OF PROCEDURE: The patient was taken to the operating suite, prepped and draped in sterile fashion. Timeout was performed. A 15 blade scalpel was used to make a skin incision over the fluctuant area. The cavity was entered and purulent material erupted, culture was obtained. This tracked up towards the anterior portion of the anterior thigh/groin area. This was opened up and with cautery and some of the necrotic subcutaneous fat was removed with cautery as well. Overall, dimensions of the wound 11 x 4 x 5.5 cm. The area was irrigated with copious amounts of irrigation and then packed after hemostasis was achieved. The wound was then packed using Kerlix with 0.25% Dakin solution. The area was washed and dried and sterile bandage was applied. The patient tolerated procedure well without any complications, taken to recovery room in stable condition. Job ID: [id number] DocumentID: [id number] Dictated Date: 03/31/2020 12:53:28 Dehydrator Operator Date: 03/31/2020 15:21:04 Dictated By: ARGELIA WORLEY DO
[2020-03-31] MEDS: IBUPROFEN 600 MG (MOTRIN) TAB PO PRN (15:28)
[2020-03-31] MEDS: DAKIN'S 1/4 STRENGTH (0.125%) 473 ML BTL TOP SCH (16:32)
[2020-03-31] MEDS: TAMSULOSIN 0.4 MG (FLOMAX) CAP PO SCH (16:35)
--- NOTE | 2020-03-31 20:23 | Progress Note ---
Subjective Subjective/Events-last exam Patient back after procedure. Area was opened and packed. States that he is having pain in the area but it feels better. Review of Systems Pulmonary: No Dyspnea, No Cough Cardiovascular: No: Chest Pain, Palpitations Neurological: Weakness Focused Exam Lactate Level 03/29/20 19:15: Lactic Acid Level 3.18*H 03/29/20 21:20: Lactic Acid Level 1.33 Objective Exam Last Set of Vital Signs Vital Signs Date Time Temp Pulse Resp B/P (MAP) Pulse Ox O2 Delivery O2 Flow Rate FiO2 03/31/20 20:07 36.3 79 24 146/69 (94) 93 NIV CPAP 03/31/20 19:06 35.00 03/30/20 13:56 28 Capillary Refill : Less Than 3 Seconds I&O Intake and Output 03/31/20 00:00 Intake Total 2930 ml Output Total 2875 ml Balance 55 ml Intake Oral 2930 ml Output Urine Total 2875 ml General: Alert, Oriented X3, No Acute Distress Lungs: Clear to Auscultation, Normal Air Movement Heart: Regular Rate, No Murmurs Abdomen: Normal Bowel Sounds, Soft Extremities: Other (Bilateral BKA) Skin: Other (Wound left thigh/perineium packed and dressed) Results/Procedures Lab Laboratory Tests 03/31/20 05:56: Glucometer 232H 03/31/20 06:25: White Blood Count 11.8H, Red Blood Count 4.64, Hemoglobin 12.8L, Hematocrit 41, Mean Corpuscular Volume 88, Mean Corpuscular Hemoglobin 28, Mean Corpuscular Hemoglobin Concent 31L, Red Cell Distribution Width 14.4, Platelet Count 128L, Mean Platelet Volume 9.8, Neutrophils (%) (Auto) 76H, Lymphocytes (%) (Auto) 13, Monocytes (%) (Auto) 9, Eosinophils (%) (Auto) 2, Basophils (%) (Auto) 0, Neutrophils # (Auto) 8.9H, Lymphocytes # (Auto) 1.5, Monocytes # (Auto) 1.1H, Eosinophils # (Auto) 0.2, Basophils # (Auto) 0.0, Sodium Level 137, Potassium Level 4.1, Chloride Level 105, Carbon Dioxide Level 24, Anion Gap 8, Blood Urea Nitrogen 15, Creatinine 0.89, Estimat Glomerular Filtration Rate > 60, BUN/Creatinine Ratio 17, Glucose Level 251H, Calcium Level 7.9L, Vancomycin Level Trough 15.1 03/31/20 12:47: Glucometer 202H 03/31/20 15:18: Glucometer 230H Microbiology 03/29/20 Urine Culture - Final, Complete 3 or more isolates 03/29/20 Blood Culture - Preliminary, Resulted No growth 03/29/20 Gram Stain - Final, Resulted 03/29/20 Wound Culture - Preliminary, Resulted Gram Pos Mixed Bacterial Merna Strep agalactiae Group B Assessment/Plan Assessment/Plan (1) Abscess of left thigh Status: Acute Assessment & Plan: - General Surgery consulted, patient has h/o MRSA, on Zosyn/Vanc 03/31: To OR today, continue antibiotics to cover MRSA until cultures return (2) IDDM (insulin dependent diabetes mellitus) Status: Chronic Assessment & Plan: - Patient NPO, given 1/2 of normal required insulin, SSI 03/31: Will adjust insulin as patient starts eating more (3) Hypertension Status: Chronic Assessment & Plan: - Continue home meds Qualifiers: Qualified Codes: I10 - Essential (primary) hypertension (4) Peripheral vascular disease Status: Chronic (5) Debility Status: Chronic (6) DVT prophylaxis Status: Acute Assessment & Plan: - SCDs, hold lovenox for possible debridment surgery in AM 03/31: Start lovenox in AM Clinical Quality Measures DVT/VTE Risk/Contraindication: Risk Factor Score Per Nursin RFS Level Per Nursing on Admit: 4+=Very High KELSEA BLAIR MD March 31, 2020 20:22
[2020-03-31] MEDS: ACETAMINOPHEN 325 MG TABLET PO PRN (20:52)
[2020-04-01 00:05] VITALS: BP 105/62
[2020-04-01] MEDS: PIPERACILLIN/TAZO 4.5 GM/NS 100 ML IV SCH ×6 (01:04→18:33)
[2020-04-01] MEDS: RT-ALBUTEROL/IPRATROPIUM 3 ML (DUONEB) VIAL INH SCH ×6 (02:25→22:03)
[2020-04-01] MEDS: NS IV 1000 ML 1,000 ML IV SCH ×3 (05:16→23:04)
[2020-04-01] MEDS: inSUlin ASPART (NovoLOG) 1 UNIT/0.01 ML (CHARGE PER UNIT) SC SCH ×7 (05:37→20:47)
[2020-04-01] MEDS: CATHETER FLUSH 10 ML SYR IV SCH ×3 (05:37→23:04)
[2020-04-01 06:01] LABS: BASOPHILS % (AUTO) 0 % (0-10); EOSINOPHILS # (AUTO) 0.3 10^3/uL (0.0-0.3); EOSINOPHILS % (AUTO) 3 % (0-10); HEMATOCRIT 41 % (40-54); HEMOGLOBIN 12.9 G/DL (13.3-17.7); LYMPHOCYTES # (AUTO) 1.5 X 10^3 (1.0-4.0); LYMPHOCYTES % (AUTO) 14 % (12-44); MEAN CORPUSCULAR HEMOGLOBIN 28 PG (25-34); MEAN CORPUSCULAR HGB CONC 32 G/DL (32-36); MEAN CORPUSCULAR VOLUME 90 FL (80-99); MEAN PLATELET VOLUME 9.8 FL (7.4-10.4); MONOCYTES % (AUTO) 9 % (0-12); NEUTROPHILS # (AUTO) 8.1 X 10^3 (1.8-7.8); NEUTROPHILS % (AUTO) 74 % (42-75); PLATELET COUNT 161 10^3/uL (130-400); RED CELL DISTRIBUTION WIDTH 14.7 % (10.0-14.5); WHITE BLOOD COUNT 10.9 10^3/uL (4.3-11.0)
[2020-04-01 06:21] LABS: BUN/CREATININE RATIO 14; CALCIUM 8.1 MG/DL (8.5-10.1); CARBON DIOXIDE 23 MMOL/L (21-32); CHLORIDE 106 MMOL/L (98-107); CREATININE SERUM 0.93 MG/DL (0.60-1.30); GFR ESTIMATED > 60; GLUCOSE 184 MG/DL (70-105); POTASSIUM 4.4 MMOL/L (3.6-5.0); SODIUM 138 MMOL/L (135-145)
[2020-04-01] MEDS: IBUPROFEN 600 MG (MOTRIN) TAB PO PRN ×2 (06:25→20:42)
[2020-04-01 07:56] VITALS: BP 157/75
[2020-04-01] MEDS: VANCOMYCIN 2000 MG/NS 500 ML IVPB IV SCH ×4 (08:40→20:46)
[2020-04-01] MEDS: LOSARTAN 50 MG (COZAAR) TAB PO SCH (08:40)
[2020-04-01] MEDS: GABAPENTIN 400 MG (NEURONTIN) CAP PO SCH ×3 (08:40→20:46)
[2020-04-01] MEDS: DAKIN'S 1/4 STRENGTH (0.125%) 473 ML BTL TOP SCH (08:40)
--- NOTE | 2020-04-01 09:34 | Physician Query Clarification ---
"Physician Query-General Query to Physician: The medical record reflects the following clinical scenario: History/Risk factors: DM and PVD Clinical Findings: HR 107, temp 39, WBC 19.1 and LA 3.1 Treatment: Vanco, Zosyn, and IV fluids Question: What condition best reflects the above clinical scenario? Please document response in the Progress notes or Discharge Summary. 1. Sepsis PRESENT ON ADMISSION 2. Abscess of L thigh (as currently documented) 3. Other , with explanation of the clinical findings 4. Clinically undetermined, no explanation for the clinical findings Please remember a lack of response to the above will prompt a phone page by CDI/coding staff In responding to this query, please exercise your independent professional judgment. The purpose of this communication is to more accurately reflect the complexity of your patients condition. The fact that a question is asked does not imply that any particular answer is desired or expected. Thank you for timely response to this clarification. Makayla Ortiz, MSN, RN RN Specialist-Clinical Doc Improvement CD -Health Info [facility] Operations [address] [facility] t: [phone] | f: [phone] If you are unable to reach me at my extension, I may be working from home. Please contact me at [phone] PHYSICIAN RESPONSE: Based on the clinical findings in the record, please respond to the query above on this document as an addendum. Physician Response: If you have questions please contact: Detective Sergeant: Ext: Thank you for your time and cooperation. Clinical Golf Club Manager/Detective Sergeant This is a permanent part of the medical record MAKAYLA ORTIZ April 01, 2020 09:34"
--- NOTE | 2020-04-01 09:41 | Physician Query Clarification ---
"Physician Query-General Query to Physician: The medical record reflects the following clinical scenario: History/Risk factors: DM Clinical Findings: Positive urine culture, Documentation of UTI by consult Treatment: Vanco, Zosyn, and IV fluids Question: What condition best reflects the above clinical scenario? Please document response in the Progress notes or Discharge Summary. 1. UTI 2. Abscess (as currently documented) 3. Other , with explanation of the clinical findings 4. Clinically undetermined, no explanation for the clinical findings Please remember a lack of response to the above will prompt a phone page by CDI/coding staff In responding to this query, please exercise your independent professional judgment. The purpose of this communication is to more accurately reflect the complexity of your patients condition. The fact that a question is asked does not imply that any particular answer is desired or expected. Thank you for timely response to this clarification. Makayla Ortiz, MSN, RN RN Specialist-Clinical Doc Improvement CD -Health Info Mgmt Operations [address] [facility] t: [phone] | f: [phone] If you are unable to reach me at my extension, I may be working from home. Please contact me at [phone] PHYSICIAN RESPONSE: Based on the clinical findings in the record, please respond to the query above on this document as an addendum. Physician Response: If you have questions please contact: Engravings Polisher: Ext: Thank you for your time and cooperation. Clinical Freezer Worker/Engravings Polisher This is a permanent part of the medical record MAKAYLA ORTIZ April 01, 2020 09:41"
[2020-04-01] MEDS: ACETAMINOPHEN 325 MG TABLET PO PRN ×2 (10:56→20:42)
--- NOTE | 2020-04-01 14:03 | NUR ---
"RD ASSESSMENT PMHx: HTN; HLD; DM; hx of wounds and poor wound healing; hx of bilateral BKA PT INTERACTION: Pt was awake and pleasant during nutrition assessment. Pt states current appetite is okay. Note avg PO intake of 100% x2d, per chart review. Pt states trying to follow-CHO diet at home, and has no issues with chewing/swallowing food. Pt states no recent issues with nausea, vomiting, constipation, or diarrhea, and that his last BM was 03/29. Note pt not currently on bowel regimen per chart review. Pt states recent 20# wt gain x6mon. Note unable to determine recent wt hx, per chart review. Pt states current DM management is pretty good. Note unable to determine recent HbA1c, per chart review. Note pt has bilateral BKA, per visual assessment. Note presence of abscess on left thigh, per chart review. Note current wt of 390# and current BMI of 50.6, per chart review. Given pt's bilateral BKA, pt's IBW is 162# (73.6 kg). Note pt is 241% IBW. ABNORMAL NUTRITION-RELATED LAB VALUES LOW: Ca 8.1 HIGH: glu 184 Est. kcal needs: 6669-8403 kcal | 25-30 kcal/kg IBW, based on IBW of 73.6 kg (162#) Est. Pro needs: 88-110 g Pro | 1.2-1.5 g Pro/kg IBW, based on IBW of 73.6 kg (162#) PES STATEMENT: Inadequate protein intake (NI-5.6.1) related to increased protein needs as evidenced by presence of wound (left thigh abscess) INTERVENTION: Continue with current diet order of CHO 60g/m 0snack diet. Add Ensure HP (vary) to meals TID. Provides 160 kcal and 16 g Pro per serving, for perceived benefit to wound healing. Discussed and provided dietary education on DM management, per pt's request. Discussed CHO counting, meal planning and snacks, and fiber intake. Also discussed smartphone applications to assist in CHO counting. Pt appeared confident to follow suggestions upon discharge. Will continue to follow and reassess as pt needs, intake, and status change. MONITOR/EVALUATE: PO Intake; Plan of Care; Hydration Status; Weight Status; Lab Values Brennan Carroll, MS, RD, LD"
--- NOTE | 2020-04-01 14:08 | Anesthesia-General Post-Op ---
General Patient Condition Mental Status/LOC: Same as Preop Cardiovascular: Satisfactory Nausea/Vomiting: Absent Respiratory: Satisfactory Pain: Controlled Complications: Absent Post Op Complications Complications None Follow Up Care/Instructions Patient Instructions None needed. Anesthesia/Patient Condition Patient Condition Patient is doing well, no complaints, stable vital signs, no apparent adverse anesthesia problems. No complications reported per nursing. D/C home per [facility] Criteria: KARI Hernandez CRNA April 01, 2020 14:08
--- NOTE | 2020-04-01 15:10 | Progress Note - Surgery ---
Subjective Date Seen by a Provider: April 01, 2020 Time Seen by a Provider: 15:09 Subjective/Events-last exam Patient doing well. The left medial thigh area is feeling better. No drainage. Pain controlled. Denies n/v fever sweats chills shortness of breath or chest pain. Focused Exam Lactate Level 03/29/20 19:15: Lactic Acid Level 3.18*H 03/29/20 21:20: Lactic Acid Level 1.33 Objective Exam Vital Signs Date Time Temp Pulse Resp B/P (MAP) Pulse Ox O2 Delivery O2 Flow Rate FiO2 04/01/20 14:21 90 Nasal Cannula 2.00 04/01/20 10:26 90 Nasal Cannula 2.00 04/01/20 07:56 36.5 76 20 157/75 (102) 95 Nasal Cannula 2.00 04/01/20 06:48 90 Nasal Cannula 2.00 04/01/20 06:17 97 NIV Bilevel 35.00 04/01/20 02:25 70 19 90 35.00 04/01/20 00:05 36.6 70 17 105/62 (76) 98 NIV Bilevel 35.00 03/31/20 21:33 70 17 92 35.00 03/31/20 20:07 36.3 79 24 146/69 (94) 93 NIV CPAP 03/31/20 20:00 Nasal Cannula 2.00 03/31/20 19:06 77 18 93 35.00 03/31/20 15:20 37.6 91 24 136/69 (91) 92 Nasal Cannula 2.00 I & O 04/01/20 07:00 Intake Total 1460 ml Output Total 2050 ml Balance -590 ml Capillary Refill : Less Than 3 Seconds General Appearance: No Apparent Distress, Chronically ill, Obese Neck: Full Range of Motion, Normal Inspection Respiratory: Chest Non Tender, No Accessory Muscle Use, No Respiratory Distress Cardiovascular: Regular Rate, Rhythm, Tachycardia Gastrointestinal: non tender, soft Extremity: Normal Capillary Refill, Other (he is a bilateral below the knee amputee, left medial thigh wound packed, no purlent material, wound clean) Neurologic/Psychiatric: Alert, Oriented x3 Skin: Other (erythema minimal to the medial proximal left thigh.) Lymphatic: No Adenopathy Results Lab Laboratory Tests 03/31/20 15:18: Glucometer 230H 5/13/20 20:44: Glucometer 127H 04/01/20 05:29: Glucometer 156H 04/01/20 05:45: White Blood Count 10.9, Red Blood Count 4.57, Hemoglobin 12.9L, Hematocrit 41, Mean Corpuscular Volume 90, Mean Corpuscular Hemoglobin 28, Mean Corpuscular Hemoglobin Concent 32, Red Cell Distribution Width 14.7H, Platelet Count 161, Mean Platelet Volume 9.8, Neutrophils (%) (Auto) 74, Lymphocytes (%) (Auto) 14, Monocytes (%) (Auto) 9, Eosinophils (%) (Auto) 3, Basophils (%) (Auto) 0, Neutrophils # (Auto) 8.1H, Lymphocytes # (Auto) 1.5, Monocytes # (Auto) 1.0, Eosinophils # (Auto) 0.3, Basophils # (Auto) 0.0, Sodium Level 138, Potassium Level 4.4, Chloride Level 106, Carbon Dioxide Level 23, Anion Gap 9, Blood Urea Nitrogen 13, Creatinine 0.93, Estimat Glomerular Filtration Rate > 60, BUN/Cr eatinine Ratio 14, Glucose Level 184H, Calcium Level 8.1L 04/01/20 11:25: Glucometer 207H Microbiology 03/31/20 Gram Stain - Final, Resulted 03/31/20 Anaerobic Culture, Resulted Pending 03/31/20 Surgical Culture - Preliminary, Resulted No growth 03/29/20 Urine Culture - Final, Complete 3 or more isolates 03/29/20 Blood Culture - Preliminary, Resulted No growth Assessment/Plan Assessment/Plan Assessment/Plan left medial thigh abscess drained by ER s/p incision drainage and debridment UTI continue abx daily wound care social work consult need home health for wound [facility] soon Clinical Quality Measures DVT/VTE Risk/Contraindication: Risk Factor Score Per Nursin RFS Level Per Nursing on Admit: 4+=Very High ARGELIA LECHUGA DO April 01, 2020 15:10
[2020-04-01 16:30] VITALS: BP 143/72
[2020-04-01] MEDS: TAMSULOSIN 0.4 MG (FLOMAX) CAP PO SCH (18:33)
--- NOTE | 2020-04-01 20:30 | Progress Note ---
Subjective Subjective/Events-last exam Patient states that his pain is much improved. Tolerating PO diet. STates that he is ready to go home. Review of Systems Pulmonary: No Dyspnea, No Cough Cardiovascular: No: Chest Pain, Palpitations Gastrointestinal: No: Abdominal Pain Neurological: Weakness Focused Exam Lactate Level 03/29/20 21:20: Lactic Acid Level 1.33 Objective Exam Last Set of Vital Signs Vital Signs Date Time Temp Pulse Resp B/P (MAP) Pulse Ox O2 Delivery O2 Flow Rate FiO2 04/01/20 18:17 80 20 92 35.00 04/01/20 16:30 36.2 143/72 (95) Nasal Cannula 03/30/20 13:56 28 Capillary Refill : Less Than 3 Seconds I&O Intake and Output 04/01/20 00:00 Intake Total 1260 ml Output Total 2050 ml Balance -790 ml Intake Oral 1260 ml Output Urine Total 2050 ml General: Alert, Oriented X3, Cooperative, No Acute Distress Lungs: Clear to Auscultation, Normal Air Movement Heart: Regular Rate, No Murmurs Abdomen: Normal Bowel Sounds, Soft, No Tenderness, No Masses Extremities: Other (Bilateral BKA) Skin: Other (Packed with serosag drainage) Results/Procedures Lab Laboratory Tests 03/31/20 20:44: Glucometer 127H 04/01/20 05:29: Glucometer 156H 04/01/20 05:45: White Blood Count 10.9, Red Blood Count 4.57, Hemoglobin 12.9L, Hematocrit 41, Mean Corpuscular Volume 90, Mean Corpuscular Hemoglobin 28, Mean Corpuscular Hemoglobin Concent 32, Red Cell Distribution Width 14.7H, Platelet Count 161, Mean Platelet Volume 9.8, Neutrophils (%) (Auto) 74, Lymphocytes (%) (Auto) 14, Monocytes (%) (Auto) 9, Eosinophils (%) (Auto) 3, Basophils (%) (Auto) 0, Neutrophils # (Auto) 8.1H, Lymphocytes # (Auto) 1.5, Monocytes # (Auto) 1.0, Eo sinophils # (Auto) 0.3, Basophils # (Auto) 0.0, Sodium Level 138, Potassium Level 4.4, Chloride Level 106, Carbon Dioxide Level 23, Anion Gap 9, Blood Urea Nitrogen 13, Creatinine 0.93, Estimat Glomerular Filtration Rate > 60, BUN/Creatinine Ratio 14, Glucose Level 184H, Calcium Level 8.1L 04/01/20 11:25: Glucometer 207H 04/01/20 16:29: Glucometer 210H Microbiology 03/31/20 Gram Stain - Final, Resulted 03/31/20 Anaerobic Culture, Resulted Pending 03/31/20 Surgical Culture - Preliminary, Resulted No growth 03/29/20 Urine Culture - Final, Complete 3 or more isolates 03/29/20 Blood Culture - Preliminary, Resulted No growth Assessment/Plan Assessment/Plan (1) Abscess of left thigh Status: Acute Assessment & Plan: - General Surgery consulted, patient has h/o MRSA, on Zosyn/Vanc 03/31: To OR today, continue antibiotics to cover MRSA until cultures return 04/01: POD#1, pain much improved, waiting on culture resultss (2) IDDM (insulin dependent diabetes mellitus) Status: Chronic Assessment & Plan: - Patient NPO, given 1/2 of normal required insulin, SSI 03/31: Will adjust insulin as patient starts eating more (3) Hypertension Status: Chronic Assessment & Plan: - Continue home meds Qualifiers: Qualified Codes: I10 - Essential (primary) hypertension (4) Peripheral vascular disease Status: Chronic (5) Debility Status: Chronic (6) DVT prophylaxis Status: Acute Assessment & Plan: - SCDs, hold lovenox for possible debridment surgery in AM 03/31: Start lovenox in AM Clinical Quality Measures DVT/VTE Risk/Contraindication: Risk Factor Score Per Nursin RFS Level Per Nursing on Admit: 4+=Very High KELSEA BLAIR MD April 01, 2020 20:30
[2020-04-02 00:48] VITALS: BP 101/61
[2020-04-02] MEDS: PIPERACILLIN/TAZO 4.5 GM/NS 100 ML IV SCH ×4 (02:00→06:18)
[2020-04-02] MEDS: RT-ALBUTEROL/IPRATROPIUM 3 ML (DUONEB) VIAL INH SCH ×4 (02:34→13:57)
[2020-04-02] MEDS: CATHETER FLUSH 10 ML SYR IV SCH (04:51)
[2020-04-02] MEDS: NS IV 1000 ML 1,000 ML IV SCH ×2 (04:51→06:18)
[2020-04-02 05:43] LABS: BASOPHILS % (AUTO) 0 % (0-10); EOSINOPHILS # (AUTO) 0.2 10^3/uL (0.0-0.3); EOSINOPHILS % (AUTO) 2 % (0-10); HEMATOCRIT 40 % (40-54); HEMOGLOBIN 12.4 G/DL (13.3-17.7); LYMPHOCYTES # (AUTO) 1.5 X 10^3 (1.0-4.0); LYMPHOCYTES % (AUTO) 16 % (12-44); MEAN CORPUSCULAR HEMOGLOBIN 28 PG (25-34); MEAN CORPUSCULAR HGB CONC 31 G/DL (32-36); MEAN CORPUSCULAR VOLUME 90 FL (80-99); MEAN PLATELET VOLUME 10.4 FL (7.4-10.4); MONOCYTES # (AUTO) 0.9 X 10^3 (0.0-1.0); MONOCYTES % (AUTO) 10 % (0-12); NEUTROPHILS # (AUTO) 6.5 X 10^3 (1.8-7.8); NEUTROPHILS % (AUTO) 71 % (42-75); PLATELET COUNT 142 10^3/uL (130-400); RED CELL DISTRIBUTION WIDTH 14.4 % (10.0-14.5); WHITE BLOOD COUNT 9.1 10^3/uL (4.3-11.0)
[2020-04-02 06:00] LABS: BUN/CREATININE RATIO 14; CARBON DIOXIDE 22 MMOL/L (21-32); CHLORIDE 107 MMOL/L (98-107); CREATININE SERUM 0.94 MG/DL (0.60-1.30); GFR ESTIMATED > 60; GLUCOSE 177 MG/DL (70-105); POTASSIUM 4.3 MMOL/L (3.6-5.0); SODIUM 139 MMOL/L (135-145)
[2020-04-02] MEDS: inSUlin ASPART (NovoLOG) 1 UNIT/0.01 ML (CHARGE PER UNIT) SC SCH ×4 (06:00→11:51)
[2020-04-02] MEDS: LOSARTAN 50 MG (COZAAR) TAB PO SCH (06:16)
[2020-04-02] MEDS: GABAPENTIN 400 MG (NEURONTIN) CAP PO SCH ×2 (06:16→11:51)
[2020-04-02] MEDS: IBUPROFEN 600 MG (MOTRIN) TAB PO PRN (06:16)
[2020-04-02] MEDS: VANCOMYCIN 2000 MG/NS 500 ML IVPB IV SCH ×2 (06:18)
[2020-04-02 07:45] VITALS: BP 167/83
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
--- NOTE | 2020-04-02 12:16 | Discharge Summary ---
Diagnosis/Chief Complaint Date of Admission March 29, 2020 at 19:17 Date of Discharge Discharge Diagnosis Problems/Diagnosis: (1) Abscess of left thigh Assessment & Plan: - General Surgery consulted, patient has h/o MRSA, on Zosyn/Vanc 03/31: To OR today, continue antibiotics to cover MRSA until cultures return 04/01: POD#1, pain much improved, waiting on culture resultss Status: Acute (2) IDDM (insulin dependent diabetes mellitus) Assessment & Plan: - Patient NPO, given 1/2 of normal required insulin, SSI 03/31: Will adjust insulin as patient starts eating more Status: Chronic (3) Hypertension Assessment & Plan: - Continue home meds Qualifiers: Qualified Codes: I10 - Essential (primary) hypertension Status: Chronic (4) Peripheral vascular disease Status: Chronic (5) Debility Status: Chronic (6) DVT prophylaxis Assessment & Plan: - SCDs, hold lovenox for possible debridment surgery in AM 03/31: Start lovenox in AM Status: Acute Chief Complaint/HPI Chief Complaint/HPI 55 yo M with uncontrolled IDDM that presented with left upper thigh/groin abscess. Patient has known h/o multiple abscesses and poor wound healing. Patient has bilateral BKA. Denies any fever or chills. States that he noticed the area about 1 week ago and has been doing warm compresses. Denies any drainage. + ttp. Discharge Summary-Simple/Stand Consultations Discharge Physical Examination Allergies: Coded Allergies: pregabalin (Unverified Allergy, Severe, FEVER, 04/26/15) Vitals & I&Os Vital Sign - Last 12Hours Date Time Temp Pulse Resp B/P (MAP) Pulse Ox O2 Delivery O2 Flow Rate FiO2 04/02/20 10:35 94 Nasal Cannula 2.00 04/02/20 07:45 36.2 80 18 167/83 (111) 03/30/20 13:56 28 Intake and Output 04/02/20 00:00 Intake Total 5580 ml Output Total 2200 ml Balance 3380 ml Hospital Course See final discharge diagnosis. Discharge Instructions to patient/family Please see electronic discharge instructions given to patient. Discharge Medications Reviewed and agree with Discharge Medication list on patient's Discharge Inst ruction sheet Clinical Quality Measures DVT/VTE Risk/Contraindication: Risk Factor Score Per Nursin RFS Level Per Nursing on Admit: 4+=Very High KELSEA BLAIR MD April 02, 2020 12:16
[2020-04-02] MEDS ORDERED: AMOX500T2 PO (12:18)
[2020-04-02] MEDS ORDERED: IBUP-844 PO (12:18)
--- NOTE | 2020-04-02 12:24 | Discharge Summary ---
Discharge Summary Reconcile Patient Problems Problems Reviewed?: Yes Instructions for Patient [facility], Assessment/Instructions - Wound care per Dr Worley - Make sure you complete your antibiotics Physician to follow Patient: Tone Discharge Diet for Home: ADA Diet Hospital Course Date of Admission: March 29, 2020 at 19:17 Admission Diagnosis : Family Physician/Provider: [place] Date of Discharge: 04/02/20 Discharge Diagnosis: Abscess of Left Thigh IDDM Uncontrolled PVD Hospital Course: 55 yo M with multiple comorbidities came to ER with increase pain and swelling in Left thigh. Patient has bilateral BKA and poor wound healing so he came in when the pain was getting worse. Patient had I&D in ER with purulent drainage. Dr Worley to see patient because he still had some pain and induration with tracking up to groin. He was then taken to OR for bigger I&D and debridement. Patient cultures neg for MRSA and will go home with for wound care. Labs and Pending Lab Test: Laboratory Tests 04/01/20 16:29: Glucometer 210H 04/01/20 20:29: Glucometer 189H 04/02/20 04:14: White Blood Count 9.1, Red Blood Count 4.49, Hemoglobin 12.4L, Hematocrit 40, Mean Corpuscular Volume 90, Mean Corpuscular Hemoglobin 28, Mean Corpuscular Hemoglobin Concent 31L, Red Cell Distribution Width 14.4, Platelet Count 142, Mean Platelet Volume 10.4, Neutrophils (%) (Auto) 71, Lymphocytes (%) (Auto) 16, Monocytes (%) (Auto) 10, Eosinophils (%) (Auto) 2, Basophils (%) (Auto) 0, Neutrophils # (Auto) 6.5, Lymphocytes # (Auto) 1.5, Monocytes # (Auto) 0.9, Eosinophils # (Auto) 0.2, Basophils # (Auto) 0.0, Sodium Level 139, Potassium Level 4.3, Chloride Level 107, Carbon Dioxide Level 22, Anion Gap 10, Blood Urea Nitrogen 13, Creatinine 0.94, Estimat Glomerular Filtration Rate > 60, BUN/Creatinine Ratio 14, Glucose Level 177H, Calcium Level 8.0L 04/02/20 11:04: Glucometer 241H Microbiology 03/31/20 Gram Stain - Final, Resulted 03/31/20 Anaerobic Culture, Resulted Pending 03/31/20 Surgical Culture - Preliminary, Resulted Culture In Progress 03/29/20 Urine Culture - Final, Complete 3 or more isolates 03/29/20 Blood Culture - Preliminary, Resulted No growth Home Meds Active Amoxicillin 500 Mg Tablet 500 Mg PO BID Ibu (Ibuprofen) 600 Mg Tablet 600 Mg PO Q6H PRN Reported Ibuprofen 200 Mg Tablet 800 Mg PO QID PRN TAKES 4 (200MG) TABS FOUR TIMES A DAY Humalog Kwikpen (Insulin Lispro) 100 Unit/1 Ml Insuln.pen 75 Unit SQ AC Tresiba Flextouch U-200 (Insulin Degludec) 200 Unit/1 Ml Insuln.pen 96 Unit SQ 2000 Meloxicam 7.5 Mg Tablet 7.5 Mg PO BID LAST FILLED 10-31-2019 #180/90 DAY SUPPLY Flomax (Tamsulosin HCl) 0.4 Mg Cap 0.4 Mg PO DAILY LAST FILLED 11-10-2019 #90/90 DAY SUPPLY Atorvastatin Calcium 80 Mg Tablet 80 Mg PO DAILY 10-31-2019 #90/90 DAY SUPPLY Pantoprazole Sodium 40 Mg Tablet.dr 40 Mg PO DAILY PRN Chantix (Varenicline Tartrate) 1 Mg Tablet 1 Mg PO BID Losartan Potassium 50 Mg Tablet 50 Mg PO DAILY Gabapentin 800 Mg Tablet 800 Mg PO TID Glipizide 10 Mg Tablet 10 Mg PO DAILY LAST FILLED 11-10-2019 #90/90 DAY SUPPLY Trulicity (Dulaglutide) 0.75 Mg/0.5 Ml Pen.injctr 0.75 Mg SQ WEEK LAST FILLED 11-03-2019 #6/90 DAY SUPPLY Symbicort 160-4.5 Mcg Inhaler (Budesonide/Formoterol Fumarate) 10.2 Gm Hfa.aer.ad 2 Puff IH BID Proair Hfa (Albuterol Sulfate) 1 Puff Puff 2 Puff INH Q4H PRN Patient Allergies: Coded Allergies: pregabalin (Unverified Allergy, Severe, FEVER, 04/26/15) Height (Feet): 6 Height (Inches): 4.00 Weight (Pounds): 369 Weight (Ounces): 14.4 New Medications: Amoxicillin (Amoxicillin) 500 Mg Tablet 500 MG PO BID, #28 TAB Ibuprofen (Ibu) 600 Mg Tablet 600 MG PO Q6H PRN for PAIN-MILD (1-4)/FEVER 2ND LINE, #90 TAB Continued Medications: Albuterol Sulfate (Proair Hfa) 1 Puff Puff 2 PUFF INH Q4H PRN for SHORTNESS OF BREATH, INHALER Atorvastatin Calcium (Atorvastatin Calcium) 80 Mg Tablet 80 MG PO DAILY, TAB 10-31-2019 #90/90 DAY SUPPLY Budesonide/Formoterol Fumarate (Symbicort 160-4.5 Mcg Inhaler) 10.2 Gm Hfa.aer.ad 2 PUFF IH BID, INHALER Dulaglutide (Trulicity) 0.75 Mg/0.5 Ml Pen.injctr 0.75 MG SQ WEEK, VIAL LAST FILLED 11-03-2019 #6/90 DAY SUPPLY Gabapentin (Gabapentin) 800 Mg Tablet 800 MG PO TID, TAB Glipizide (Glipizide) 10 Mg Tablet 10 MG PO DAILY, TAB LAST FILLED 11-10-2019 #90/90 DAY SUPPLY Insulin Degludec (Tresiba Flextouch U-200) 200 Unit/1 Ml Insuln.pen 96 UNIT SQ 2000, EA Insulin Lispro (Humalog Kwikpen) 100 Unit/1 Ml Insuln.pen 75 UNIT SQ AC, EA Losartan Potassium (Losartan Potassium) 50 Mg Tablet 50 MG PO DAILY, TAB Pantoprazole Sodium (Pantoprazole Sodium) 40 Mg Tablet.dr 40 MG PO DAILY PRN for HEARTBURN, TAB Tamsulosin HCl (Flomax) 0.4 Mg Cap 0.4 MG PO DAILY, CAP LAST FILLED 11-10-2019 #90/90 DAY SUPPLY Varenicline Tartrate (Chantix) 1 Mg Tablet 1 MG PO BID, TAB Discontinued Medications: Ibuprofen (Ibuprofen) 200 Mg Tablet 800 MG PO QID PRN for PAIN-MILD (1-4), TAB TAKES 4 (200MG) TABS FOUR TIMES A DAY Meloxicam (Meloxicam) 7.5 Mg Tablet 7.5 MG PO BID, TAB LAST FILLED 10-31-2019 #180/90 DAY SUPPLY Home Health Need/Face to Face Date of Face to Face: April 02, 2020 Clinical Findings: Non or partial weight bearing, Wound infection, Non-healing wound I have seen Pt [id number]: Yes Discharged To: Home Diagnosis/Conditions: See Above Patient is Homebound due to: Ja fall risk due to instabilty, Shortness of breath/distress Homebound Status Due to the above stated illness, injury or surgical procedure (medical condition or diagnosis) and associated clinical findings, the patient is homebound because of his/her inability to leave home except with aid of a supportive device and/or person AND leaving the home requires a considerable and taxing effort or is medically contraindicated. Pt req the following assistanc: Aid of another person, Wheelchair Home Health Nursing Orders Home Health Services Order: Nursing Services, Wound Care-Eval/Treat Certify Stmt I certify that this patient is under my care and that I, a nurse practitioner or a physician; a endodontic assistant working with me, had a face to face encounter that - meets the physician face to face encounter requirements with this patient as dated. Discharge Physical Exam General: Alert, Oriented X3, Cooperative, No Acute Distress Lungs: Clear to Auscultation, Normal Air Movement Heart: Regular Rate, No Murmurs Abdomen: Normal Bowel Sounds, Soft, No Tenderness, No Masses Extremities: Other (Bilateral BKA) Skin: Other (wound packed and draining serosag fluid) Neuro: Normal Speech, Cranial Nerves 3-12 NL KELSEA BLAIR MD April 02, 2020 12:24
--- NOTE | 2020-04-02 15:55 | NUR ---
CM/SS: Visited with pt as to plan for discharge Plan: Pt to return home with [facility]. Summary: Pt. reports that he will need help with his wound when he gets home and he is ok for [facility] to provide for his care. He reports that that he has support of his daughters, but they are unable to do the wound care based on the location of the wound. Pt reports that he is feeling better and ready to go home. Pt is asked about his primary physician. He reports it has changed as he goes to [facility], but it may not be the same person each time that he sees. He is informed that Home Care needed the information. Pt is ok with that. Pt aware that home care will get in touch with him as to when they will make a visit.
[2020-04-02 16:30] VITALS: BP 167/83
--- NOTE | 2020-04-02 16:30 | NUR ---
KAITLIN CHOE demonstrates understanding of discharge instructions and accurately returns instructions upon questioning. Copy of Post-Discharge Instructions given to PT. KAITLIN CHOE is able to manage continuing needs after discharge. Patients belongings returned to PT. Patient discharged from [facility] on 04/02/20 at 1630. KAITLIN CHOE left floor via W/C, accompanied by STAFF AND FAMILY PER AUTO.
== END 2020-04-02 16:30 | disposition home health service (06) | DRG 854 ==
LOC: EDUNIT# 18:06 → ER 18:09 → ICU 19:17 → 4TH 03-30 12:08
PROVIDERS: ADMIT Family Medicine; ATTEND Family Medicine
PROC: 0H9JXZX Drainage of Left Upper Leg Skin, External Approach, Diagnostic (ICD-10-PCS; 2020-03-29)
PROC: 0JBM0ZZ Excision of Left Upper Leg Subcutaneous Tissue and Fascia, Open Approach (ICD-10-PCS; 2020-03-31)
PROC: 0J9M0ZZ Drainage of Left Upper Leg Subcutaneous Tissue and Fascia, Open Approach (ICD-10-PCS; principal; 2020-03-31 11:52)
DX: A41.9 Sepsis, unspecified organism (principal); L02.416 Cutaneous abscess of left lower limb; N39.0 Urinary tract infection, site not specified; Z68.43 Body mass index [BMI] 50.0-59.9, adult; J44.9 Chronic obstructive pulmonary disease, unspecified; I25.10 Atherosclerotic heart disease of native coronary artery without angina pectoris; I10 Essential (primary) hypertension; E11.51 Type 2 diabetes mellitus with diabetic peripheral angiopathy without gangrene; E11.40 Type 2 diabetes mellitus with diabetic neuropathy, unspecified; E78.00 Pure hypercholesterolemia, unspecified; G47.30 Sleep apnea, unspecified; F17.210 Nicotine dependence, cigarettes, uncomplicated; K21.9 Gastro-esophageal reflux disease without esophagitis; K59.00 Constipation, unspecified; K44.9 Diaphragmatic hernia without obstruction or gangrene; M19.91 Primary osteoarthritis, unspecified site; E66.9 Obesity, unspecified; J30.2 Other seasonal allergic rhinitis; Z89.511 Acquired absence of right leg below knee; Z89.512 Acquired absence of left leg below knee; Z79.4 Long term (current) use of insulin; E11.65 Type 2 diabetes mellitus with hyperglycemia; I73.9 Peripheral vascular disease, unspecified
CPT/HCPCS: 36415; 71045; 80048; 80053; 80202; 81000; 82962; 83605; 85007; 85025; 85027; 87040; 87070; 87075; 87077; 87088; 87205; 94640; 94660; 94760; 96361; 96365; 96375

== ENCOUNTER 2021-07-13 05:30 | Outpatient (CLI) | payer MEDICARE ==
[~2021-07-13] VITALS: Ht 132.1 cm; Wt 181.9 kg
[~2021-07-13 05:30] MED LIST changes: +AMOX500T2 PO; +ASPI-1238 PO; -ASPI-983 PO; +GABA800T10 PO; +IBUP-844 PO; +MELO7.5T46 PO; -NICO-588 TD; +NICO-685 TD; -PANT40TA3 PO; +PANT40TA52 PO; +TMSL.4C PO
== END 2021-07-13 09:47 ==
LOC: PREOP 05:30
PROVIDERS: ATTEND Surgery
DX: Z01.818 Encounter for other preprocedural examination (principal)

== ENCOUNTER 2021-07-20 08:08 | Day surgery (SDC) | payer MEDICARE ==
[~2021-07-20] VITALS: Ht 132.1 cm; Wt 181.9 kg
[2021-07-20] VITALS (11 sets, daily range): BP systolic 124–145; BP diastolic 59–90
[2021-07-20] MEDS ORDERED: LACTATED RINGERS 1,000 ML IV PRN (08:45)
[2021-07-20] MEDS ORDERED: ceFAZolin 2 GM IV Premixed 50 ML IV ONE (08:45)
[2021-07-20 08:53] LABS: AMPHETAMINE SCREEN, URINE NEGATIVE (NEGATIVE); BARBITURATE SCREEN URINE NEGATIVE (NEGATIVE); BENZODIAZEPINES SCREEN URINE NEGATIVE (NEGATIVE); CANNABINOID SCREEN, URINE POSITIVE (NEGATIVE); COCAINE SCREEN URINE NEGATIVE (NEGATIVE); METHADONE STAT NEGATIVE (NEGATIVE); METHAMPHETAMINE SCREEN URINE S NEGATIVE (NEGATIVE); OPIATE SCREEN URINE NEGATIVE (NEGATIVE); OXYCODONE STAT NEGATIVE (NEGATIVE); PROPOXYPHENE STAT NEGATIVE (NEGATIVE); TRICYCLIC ANTIDEPRESSANTS SCRE NEGATIVE (NEGATIVE)
[2021-07-20] MEDS ORDERED: LIDOCAINE/EPI 1%-1:100,000 (XYLOCAINE) 20ML ONE (09:13)
[2021-07-20] MEDS ORDERED: FAMOTIDINE 20MG/2ML IV (PEPCID) ONE (09:27)
[2021-07-20] MEDS ORDERED: RT-ALBUTEROL SULF 2.5 MG/3 ML PRE-MIX VIAL INH ONE (09:30)
[2021-07-20] MEDS ORDERED: FAMOTIDINE 20MG/2ML IV (PEPCID) IVP ONE (09:30)
[2021-07-20] MEDS ORDERED: fentaNYL INJ 100 MCG/2 ML AMP IVP ONE (09:45)
[2021-07-20] MEDS ORDERED: fentaNYL INJ 100 MCG/2 ML AMP ONE ×2 (09:48→10:50)
[2021-07-20] MEDS ORDERED: MIDAZOLAM 2 MG/2 ML (VERSED) VIAL ONE ×2 (10:50→10:51)
[2021-07-20] MEDS ORDERED: ONDANSETRON 4 MG/2 ML (SDV) Z0FRAN ONE (10:50)
[2021-07-20] MEDS ORDERED: proPOfol 200 MG/20 ML (DIPRIVAN) VIAL IV ONE (10:50)
[2021-07-20] MEDS ORDERED: LIDOCAINE PF 2% 5 ML (XYLOCAINE) VIAL ONE (10:50)
--- NOTE | 2021-07-20 11:02 | Progress Note-Pre Operative ---
Pre-Operative Progress Note H&P Reviewed The H&P was reviewed, patient examined and no changes noted. Date Seen by Provider: Jul 20, 2021 Time Seen by Provider: 11: Date H&P Reviewed: Jul 20, 2021 Time H&P Reviewed: 11:01 Pre-Operative Diagnosis: PERIANAL ABSCESS ARGELIA LECHUGA DO Jul 20, 2021 11:02
--- NOTE | 2021-07-20 11:37 | Discharge Inst-Simple/Standard ---
Discharge Inst-Standard Patient Instructions/Follow Up Plan of Care/Instructions/FU: Meir nurse tomorrow for a packing change. Meir 1-2 weeks. Activity as Tolerated: Yes Discharge Diet: Regular Diet Other Inst to Patient Follow up Appt: Make appointment for 2 week. Instructions: Keep area clean and dry. Irrigate and pack daily. May shower in 24 hours, no tub bath or soaking. Use incentive spirometer at home as directed. No Smoking Symptoms to Report: Appetite Changes, Extremity Discoloration, Numbness/Tingling, Swelling Increased, Bleeding Excessive, Eyesight Changes, Pain Increased, Urine Color Change, Constipation(Persistent), Fever over 101 degree F, Pain/Pressure in chest, Urinating Difficulty, Cough Up/Vomit Blood, Heart Beat Irreg/Pounding, Pain/Pressure in jaw, Vaginal Bleeding Increase, Cramps in feet or legs, Lightheadedness, Pain/Pressure in shoulder, Diarrhea(Persistent), Memory Changes Suddenly, Questions/Concerns, Weight gain consecutive days, Dizziness/Fainting, Nausea/Vomiting, Shortness of Breath, Weight gain over 2 pounds If questions or concerns contact your physician Or seek help at emergency department. ARGELIA LECHUGA DO Jul 20, 2021 11:37
--- NOTE | 2021-07-20 12:30 | Anesthesia-General Post-Op ---
General Patient Condition Mental Status/LOC: Same as Preop Cardiovascular: Satisfactory Nausea/Vomiting: Absent Respiratory: Satisfactory Pain: Controlled Complications: Absent Post Op Complications Complications None Follow Up Care/Instructions Patient Instructions None needed. Anesthesia/Patient Condition Patient Condition Patient is doing well, no complaints, stable vital signs, no apparent adverse anesthesia problems. SIMONE HERNANDEZ DO Jul 20, 2021 12:30
[2021-07-20] MEDS ORDERED: HYDROcodone/APAP 5 MG/325 MG (LORTAB) TAB PO ONE (12:45)
--- NOTE | 2021-07-21 04:35 | OPERATIVE REPORT ---
DATE OF SERVICE: 07/20/2021 PREOPERATIVE DIAGNOSIS: Perianal abscess. POSTOPERATIVE DIAGNOSIS: Perianal abscess. PROCEDURE: Incision and drainage 2.5 x 1 cm. SURGEON: Argelia Worley DO ANESTHESIA: General. ESTIMATED BLOOD LOSS: Minimal. COMPLICATIONS: None. INDICATIONS: The patient is a 56-year-old male with a chronic perianal abscess and drainage. The patient has had previous incision and drainage performed, but this has continued to drain and not completely healed. The patient was discussed incision and drainage and all other indicated procedures. He understands and wishes to proceed. Consent was signed in the chart. DESCRIPTION OF PROCEDURE: The patient was taken to the operating suite, was prepped and draped in sterile fashion in lithotomy position. Timeout was performed. Small opening at the perianal area. A hemostat was then used to probe the area. This extended up towards the scrotum, which using cautery this was then opened with overall dimensions 2.5 x 1 cm. Good healthy clean tissue. There was some slight purulent material within this area; however, once evacuated and irrigated and suctioned, this all appeared to be healthy viable tissue. The wound was irrigated with copious amounts of irrigation and wound was then packed with iodoform. The patient had the area washed and dried and sterile bandages were applied. The patient tolerated procedure well without any complications, taken to recovery room in stable condition. RECOMMENDATIONS: The patient will continue with wound care daily. The patient will have follow up in the clinic. Any issues before that be seen at that time. CC: [facility] - requested, unable to deliver Job ID: [id number] DocumentID: [id number] Dictated Date: 07/20/2021 23:18:04 Errand Runner Date: 07/21/2021 04:34:12 Dictated By: ARGELIA WORLEY DO
== END 2021-07-20 13:45 | disposition home or self-care (01) ==
LOC: SDC 08:08
PROVIDERS: ATTEND Surgery
DX: K61.0 Anal abscess (principal); I10 Essential (primary) hypertension; I25.10 Atherosclerotic heart disease of native coronary artery without angina pectoris; J44.9 Chronic obstructive pulmonary disease, unspecified; G47.33 Obstructive sleep apnea (adult) (pediatric); J30.2 Other seasonal allergic rhinitis; E11.40 Type 2 diabetes mellitus with diabetic neuropathy, unspecified; F32.9 Major depressive disorder, single episode, unspecified; F41.9 Anxiety disorder, unspecified; K21.9 Gastro-esophageal reflux disease without esophagitis; E66.01 Morbid (severe) obesity due to excess calories; Z79.899 Other long term (current) drug therapy; Z79.4 Long term (current) use of insulin; Z79.1 Long term (current) use of non-steroidal anti-inflammatories (NSAID); Z87.891 Personal history of nicotine dependence; Z98.890 Other specified postprocedural states; Z68.45 Body mass index [BMI] 70 or greater, adult
CPT/HCPCS: 80306; 82947; 87081; 94640

== ENCOUNTER → 2021-11-30 | Outpatient (CLI) | payer MEDICARE ==
[~2021-11-30] VITALS: Wt 176.0 kg
[~2021-11-30] MED LIST changes: +CYCL10TA25 PO; -CYCL10TA9 PO; +HYDR-3817 PO
== END | disposition home or self-care (01) ==
LOC: PREOP 11:30
PROVIDERS: ATTEND Surgery
DX: Z01.818 Encounter for other preprocedural examination (principal)

== ENCOUNTER 2021-12-01 09:41 | Day surgery (SDC) | payer MEDICARE ==
[2021-12-01] VITALS (10 sets, daily range): BP systolic 113–154; BP diastolic 62–99
[~2021-12-01 09:41] MED LIST changes: -HYDR-3817 PO
[2021-12-01] MEDS ORDERED: ceFAZolin 2 GM IV Premixed 50 ML IV ONE (10:00)
[2021-12-01 10:06] LABS: AMPHETAMINE SCREEN, URINE NEGATIVE (NEGATIVE); BARBITURATE SCREEN URINE NEGATIVE (NEGATIVE); BENZODIAZEPINES SCREEN URINE POSITIVE (NEGATIVE); CANNABINOID SCREEN, URINE POSITIVE (NEGATIVE); COCAINE SCREEN URINE NEGATIVE (NEGATIVE); METHADONE STAT NEGATIVE (NEGATIVE); METHAMPHETAMINE SCREEN URINE S NEGATIVE (NEGATIVE); OPIATE SCREEN URINE NEGATIVE (NEGATIVE); OXYCODONE STAT NEGATIVE (NEGATIVE); PROPOXYPHENE STAT NEGATIVE (NEGATIVE); TRICYCLIC ANTIDEPRESSANTS SCRE NEGATIVE (NEGATIVE)
--- NOTE | 2021-12-01 10:22 | Progress Note-Pre Operative ---
Pre-Operative Progress Note H&P Reviewed The H&P was reviewed, patient examined and no changes noted. Date Seen by Provider: Dec 01, 2021 Time Seen by Provider: 10:20 Date H&P Reviewed: Dec 01, 2021 Time H&P Reviewed: 10:15 Pre-Operative Diagnosis: Symptomatic left inguinal hidradenitis suppurativa MODESTO JACKSON APRN Dec 01, 2021 10:22
[2021-12-01] MEDS ORDERED: HYDR-3817 PO (10:23)
--- NOTE | 2021-12-01 10:24 | Discharge Inst-Surgical ---
D/C Lap Instructions-KIDO Reconcile Patient Problems Problems Reviewed?: Yes New, Converted, or Re-Newed RX: RX on Chart Follow Up Appt in 2 weeks Activity as tolerated No driving for 24 hours No driving while on pain medications Incentive Spirometry use every 2 hours while awake Regular Diet Symptoms to Report: Fever over 101 degree F, Nausea/Vomiting Infection Signs and Symptoms to report: Increased redness, Foul odor of wound, Increased drainage Bathing instructions: May shower Operative Area Clean/Dry; Keep incision clean/dry If any problems/questions: Contact your physician or go to Emergency Room MODESTO JACKSON APRN Dec 01, 2021 10:24
[2021-12-01] MEDS ORDERED: morphine INJ 10 MG/ML 1ML (SYR OR VIAL) IVP PRN (10:30)
[2021-12-01] MEDS ORDERED: HYDROcodone/APAP 5 MG/325 MG (LORTAB) TAB PO ONE (10:30)
[2021-12-01] MEDS ORDERED: ONDANSETRON 4 MG/2 ML (SDV) Z0FRAN IVP PRN ×2 (10:30→13:30)
[2021-12-01] MEDS ORDERED: ACETAMINOPHEN 325 MG TABLET PO PRN (10:30)
[2021-12-01] MEDS: LACTATED RINGERS 1,000 ML IV PRN ×2 (10:45→13:58)
[2021-12-01] MEDS ORDERED: LIDOCAINE PF 2% 5 ML (XYLOCAINE) VIAL ONE (11:12)
[2021-12-01] MEDS ORDERED: proPOfol 200 MG/20 ML (DIPRIVAN) VIAL IV ONE (11:12)
[2021-12-01] MEDS ORDERED: SUCCINYLCHOLINE INJ 100 MG/5 ML SYR/VIAL ONE (11:12)
[2021-12-01] MEDS ORDERED: ONDANSETRON 4 MG/2 ML (SDV) Z0FRAN ONE (11:12)
[2021-12-01] MEDS ORDERED: MIDAZOLAM 2 MG/2 ML (VERSED) VIAL ONE (11:13)
[2021-12-01] MEDS ORDERED: fentaNYL INJ 100 MCG/2 ML AMP ONE (11:13)
[2021-12-01] MEDS ORDERED: LIDOCAINE/EPI 1%-1:200,000 (XYLOCAINE) 30 ML VIAL ONE (11:18)
--- NOTE | 2021-12-01 12:43 | Progress Note-Post Operative ---
Post-Operative Progess Note Surgeon (s)/Child Life Assistant (s) Surgeon JAYASHREE DELONG MD Child Life Assistant: shyanne ayala MEAT PROCESSOR Pre-Operative Diagnosis Symptomatic left inguinal hidradenitis suppurativa Post-Operative Diagnosis same (9x6cm) Procedure & Operative Findings Date of Procedure 12/01/21 Procedure Performed/Findings excision hydradenitis suppuritiva left groin(9x6cm, including skin, subcutaneous, fascia) Anesthesia Type get Estimated Blood Loss Estimated blood loss (mL): minimal Specimens/Packing Specimens Removed left groin JAYASHERE DELONG MD Dec 01, 2021 12:43
--- NOTE | 2021-12-01 13:02 | OPERATIVE REPORT ---
DATE OF SERVICE: 12/01/2021 ATTENDING PRIMARY INTERNATIONAL TRADE MANAGER: ANIKA Deleon. PREOPERATIVE DIAGNOSIS: Hidradenitis suppurativa, left inguinal region. POSTOPERATIVE DIAGNOSES: Hidradenitis suppurativa, left inguinal region. Area 9 x 6 cm in size. PROCEDURE: Excision of hidradenitis suppurativa, left inguinal region 9 x 6 cm in size, including skin, subcutaneous tissue and fascia with complex layered closure 9 x 6 cm in size. SURGEON: Jayashree Delong MD. SYSTEM AUDITOR: Levi Barrett APRN. ESTIMATED BLOOD LOSS: Minimal. FINDINGS: Multiple cysts and sinus tracts in the left inguinal region consistent with hidradenitis suppurativa. DISPOSITION: The patient tolerated the procedure well. INDICATIONS: The patient is a 56-year-old male who we have seen before in the past. He has had persistent drainage in the left inguinal region. He states that in 03/2021, he was admitted and underwent an incision and drainage as well as debridement of the left inguinal region; however, the area reoccurred. He was placed on multiple rounds of antibiotics; however, continued to have swelling, pain and drainage. He does have number of medical comorbidities including 42 pack smoking history, morbid obesity, peripheral vascular disease and has bilateral below below-knee amputations and is wheelchair bound and does place pressure on the perineum at all times. DESCRIPTION OF PROCEDURE: The patient was brought to the operating room, laid supine on the table. After adequate IV pain and sedative medications and general endotracheal intubation, the patient was placed in lithotomy position and perineum prepped and draped in standard surgical fashion. The area was then measured out, which encompassed chronic inflammatory skin, subcutaneous tissue, which was 9 x 6 cm. This was marked off with a marking pen. This was then anesthetized using 0.5% Marcaine with epinephrine. The skin was then opened using a 15 blade and then we proceeded to excise the skin, subcutaneous tissue and fascia as well as the multiple cysts involved within this region of skin and subcutaneous tissue. We did this using electrocautery with visualization of good hemostasis. The excised diameter was 9 x 6 cm in size. We then proceeded with layered complex closure encompassing the fascia followed by subcutaneous tissue followed by subcuticular and skin with a 2-0 Vicryl and the skin was closed using 3-0 nylon interrupted sutures. The wound was then cleaned and covered with 4 x 4 gauze followed by an ABD pad, followed by mesh shorts. The patient tolerated the procedure well. We will have him offload pressure on the entire region and move every hour as well. He will also need to keep the area clean and dry and to apply dry dressing at least on a b.i.d. basis as well as p.r.n. if there is significant contamination. We will also start him on Keflex 500 mg b.i.d. for the next 10 days. Job ID: [id number] DocumentID: [id number] Dictated Date: 12/01/2021 12:50:00 Polisher Dial Date: 12/01/2021 13:01:50 Dictated By: JAYASHREE DELONG MD
[2021-12-01] MEDS ORDERED: SEVOFLURANE (ULTANE) 15 ML INHAL SOLN ONE (13:04)
[2021-12-01] MEDS ORDERED: PROMETHAZINE INJ 25 MG/ML (PHENERGAN) AMP IVP ONE (13:30)
[2021-12-01] MEDS ORDERED: morphine INJ 10 MG/ML 1ML (SYR OR VIAL) IVP ONE (13:30)
--- NOTE | 2021-12-01 13:53 | Anesthesia-General Post-Op ---
General Patient Condition Mental Status/LOC: Same as Preop Cardiovascular: Satisfactory Nausea/Vomiting: Absent Respiratory: Satisfactory Pain: Controlled Complications: Absent Post Op Complications Complications None Follow Up Care/Instructions Patient Instructions None needed. Anesthesia/Patient Condition Patient Condition Patient is doing well, no complaints, stable vital signs, no apparent adverse anesthesia problems. No complications reported per nursing. BRIGIDA OLIVER CRNA Dec 01, 2021 13:53
== END 2021-12-01 16:14 ==
LOC: SDC 09:41
PROVIDERS: ATTEND Surgery
DX: L73.2 Hidradenitis suppurativa (principal); L03.314 Cellulitis of groin; L90.5 Scar conditions and fibrosis of skin; I10 Essential (primary) hypertension; G47.33 Obstructive sleep apnea (adult) (pediatric); J44.9 Chronic obstructive pulmonary disease, unspecified; E11.9 Type 2 diabetes mellitus without complications; F32.A Depression, unspecified; E78.00 Pure hypercholesterolemia, unspecified; E66.01 Morbid (severe) obesity due to excess calories; F17.210 Nicotine dependence, cigarettes, uncomplicated; Z79.2 Long term (current) use of antibiotics; Z79.899 Other long term (current) drug therapy; Z79.4 Long term (current) use of insulin; Z89.512 Acquired absence of left leg below knee; Z89.511 Acquired absence of right leg below knee; Z98.890 Other specified postprocedural states; Z68.43 Body mass index [BMI] 50.0-59.9, adult
CPT/HCPCS: 80306; 82947; 87081

== ENCOUNTER 2022-02-10 05:33 | Outpatient (CLI) | payer MEDICARE ==
[~2022-02-10] VITALS: Ht 188 cm; Wt 176.9 kg
[~2022-02-10 05:33] MED LIST changes: +HYDR-3817 PO
== END 2022-02-10 15:46 | disposition home or self-care (01) ==
LOC: PREOP 05:33
PROVIDERS: ATTEND Surgery
DX: Z01.818 Encounter for other preprocedural examination (principal)

== ENCOUNTER 2022-02-17 10:05 | Day surgery (SDC) | payer MEDICARE ==
[~2022-02-17] VITALS: Ht 188 cm; Wt 176.9 kg
[2022-02-17] MEDS ORDERED: LACTATED RINGERS 1,000 ML IV ONE (10:16)
--- NOTE | 2022-02-17 10:36 | Progress Note-Pre Operative ---
Pre-Operative Progress Note H&P Reviewed The H&P was reviewed, patient examined and no changes noted. Date Seen by Provider: Feb 17, 2022 Time Seen by Provider: 10:30 Date H&P Reviewed: Feb 17, 2022 Time H&P Reviewed: 10:30 Pre-Operative Diagnosis: screening o JAYASHREE DELONG MD Feb 17, 2022 10:36
--- NOTE | 2022-02-17 10:37 | Discharge Inst-Surgical ---
D/C Lap Instructions-BALJEET Follow Up Activity as tolerated High Fiber Diet 25g or more per day Avoid Alcohol, Caffeine, Spicy [place] and Acid foods. Drink 64 fluid oz or more of fluids per day. Symptoms to Report: Fever over 101 degree F, Nausea/Vomiting If any problems/questions: Contact your physician or go to Emergency Room JAYASHREE DELONG MD Feb 17, 2022 10:37
[2022-02-17 10:44] VITALS: BP 129/68
[2022-02-17] MEDS ORDERED: ONDANSETRON 4 MG (ZOFRAN) ORAL DISSOLVE TAB PO PRN (10:45)
[2022-02-17] MEDS ORDERED: ONDANSETRON 4 MG/2 ML (SDV) Z0FRAN IVP PRN (10:45)
[2022-02-17] MEDS ORDERED: LACTATED RINGERS 1,000 ML IV STA (10:49)
[2022-02-17] MEDS ORDERED: LIDOCAINE JELLY 2% 6 ML SYRINGE MM PRN (11:00)
[2022-02-17] MEDS ORDERED: PROPOFOL INJECTION 50 ML IV ONE ×2 (12:04→12:40)
[2022-02-17] MEDS ORDERED: MIDAZOLAM 2 MG/2 ML (VERSED) VIAL ONE (12:04)
[2022-02-17 13:05] VITALS: BP 127/71
[2022-02-17 13:09] VITALS: BP 133/72
--- NOTE | 2022-02-17 13:24 | Progress Note-Post Operative ---
Post-Operative Progess Note Surgeon (s)/Marine Services Technician (s) Surgeon JAYASHREE DELONG MD Marine Services Technician: none Pre-Operative Diagnosis screening colo Post-Operative Diagnosis chronic stage 2 ext and int hemorrhoids, peduculated polyp asc(2mm) and sigmoid(4mm). Procedure & Operative Findings Date of Procedure 02/17/22 Procedure Performed/Findings colonoscopy with polypectomy Anesthesia Type mac Estimated Blood Loss Estimated blood loss (mL): minimal Specimens/Packing Specimens Removed asc and sigmoid polyp JAYASHREE DELONG MD Feb 17, 2022 13:24
[2022-02-17 13:35] VITALS: BP 140/70
--- NOTE | 2022-02-17 13:53 | Anesthesia-General Post-Op ---
MAC Patient Condition Mental Status/LOC: Same as Preop Cardiovascular: Satisfactory Nausea/Vomiting: Absent Respiratory: Satisfactory Pain: Controlled Complications: Absent Post Op Complications Complications None Follow Up Care/Instructions Patient Instructions None needed. Anesthesiology Discharge Order Discharge Order Patient is doing well, no complaints, stable vital signs, no apparent adverse anesthesia problems. No complications reported per nursing. KRISTA ESPITIA CRNA Feb 17, 2022 13:53
--- NOTE | 2022-02-17 21:43 | OPERATIVE REPORT ---
DATE OF SERVICE: 02/17/2022 ATTENDING PRIMARY LOADER MAGAZINE GRINDER: ANIKA Deleon PREOPERATIVE DIAGNOSIS: Screening colonoscopy. POSTOPERATIVE DIAGNOSES: Chronic stage II external and internal hemorrhoids, polyp of the ascending colon approximately 2 mm in size and of the sigmoid colon approximately 4 mm in size. PROCEDURE: Colonoscopy with polypectomy with hot biopsy forceps. SURGEON: Jayashree Keen MD ANESTHESIA: Monitored anesthesia care. ESTIMATED BLOOD LOSS: Minimal. FINDINGS: Chronic stage II external and internal hemorrhoids, polyp of the ascending colon, approximately 2 mm in size and of the sigmoid colon approximately 4 mm in size. DISPOSITION: The patient tolerated the procedure well. INDICATIONS: The patient is a 56-year-old male known to us. He had significant drainage in the perineal region, underwent incision and drainage as well as multiple rounds of antibiotics; however, he had reoccurrence. On 12/01/2021, he underwent excision of the left inguinal as well as the perineal region due to hidradenitis suppurativa. He is in need of a screening colonoscopy. He has not had a colonoscopy up to this point in his life. He does report some constipation. He does not report any red blood per rectum nor any dark tarry stools. DESCRIPTION OF PROCEDURE: The patient was brought to the endoscopy suite, laid in the left lateral decubitus position. After adequate IV pain and sedative medications and monitored anesthesia care, a digital rectal examination was performed. Chronic stage II external and internal hemorrhoids were identified, which were not actively edematous nor inflamed and no bleeding. Normal sphincter tone was felt and there were no palpable masses. Prostate gland was palpable and appeared normal. The endoscope was then intubated to the anus and rectum gently insufflated. The endoscope was then advanced through the valves of Johnson of the rectum with no polyps or any neoplasms identified. Through the sigmoid colon, a pedunculated polyp approximately 4 mm in size was identified. This was biopsied and destroyed at its base using forceps and electrocautery. The endoscope was then advanced to the remainder of the descending and transverse colon. At the ascending colon, a smaller polyp approximately 2 mm in size identified and this was biopsied and destroyed with forceps and electrocautery. The cecum appeared normal. The endoscope was then slowly withdrawn while taking a second look and suctioning of residual air with no additional findings. The patient tolerated the procedure well. We will recommend the necessary lifestyle and dietary accommodation including incorporation of a high-fiber diet with a fiber supplement, which should equal or exceed 30 grams daily as well as significant amounts of water to promote soft stools on a daily basis. If he is asymptomatic, he does not need another colonoscopy for another 10 years. Job ID: [id number] DocumentID: [id number] Dictated Date: 02/17/2022 13:11:23 Bilingual Customer Service Date: 02/17/2022 21:43:19 Dictated By: JAYASHREE KEEN MD MTDD
== END 2022-02-17 13:46 | disposition home or self-care (01) ==
LOC: ENDO 10:05
PROVIDERS: ATTEND Surgery
DX: Z12.11 Encounter for screening for malignant neoplasm of colon (principal); D12.2 Benign neoplasm of ascending colon; K64.1 Second degree hemorrhoids; K63.5 Polyp of colon; E66.01 Morbid (severe) obesity due to excess calories; Z68.43 Body mass index [BMI] 50.0-59.9, adult; F17.210 Nicotine dependence, cigarettes, uncomplicated; Z79.899 Other long term (current) drug therapy; Z98.890 Other specified postprocedural states

== ENCOUNTER 2023-01-26 08:14 | Inpatient (IN) | payer MEDICARE, MEDICAID ==
[~2023-01-26] VITALS: Ht 182 cm; Wt 163.7 kg
[~2023-01-26 08:14] MED LIST changes: +ALBU8.5H6 INH; -RT-ALBUINH INH
[2023-01-26] MEDS ORDERED: LIDOCAINE UROJET 2% GEL 10 ML PKG ONE (08:55)
[2023-01-26] MEDS ORDERED: NS IV 1000 ML 1,000 ML IV SCH ×2 (09:15→14:45)
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
[2023-01-26 09:30] LABS: BASOPHILS # (AUTO) 0.2 10^3/uL (0.0-0.1); BASOPHILS % (AUTO) 1 % (0-10); CLARITY,URINE CLEAR; COLOR,URINE DARK YELLOW; EOSINOPHILS # (AUTO) 0.2 10^3/uL (0.0-0.3); EOSINOPHILS % (AUTO) 1 % (0-10); GLUCOSE, URINE (UA) NEGATIVE (NEGATIVE); HEMATOCRIT 48 % (40-54); HEMOGLOBIN 15.7 g/dL (13.3-17.7); KETONES,URINE NEGATIVE (NEGATIVE); LEUKOCYTE ESTERASE ,URINE TRACE (NEGATIVE); LYMPHOCYTES # (AUTO) 1.8 10^3/uL (1.0-4.0); LYMPHOCYTES % (AUTO) 5 % (12-44); MEAN CORPUSCULAR HEMOGLOBIN 29 pg (25-34); MEAN CORPUSCULAR HGB CONC 33 g/dL (32-36); MEAN CORPUSCULAR VOLUME 88 fL (80-99); MEAN PLATELET VOLUME 9.6 fL (9.0-12.2); MONOCYTES # (AUTO) 2.6 10^3/uL (0.0-1.0); MONOCYTES % (AUTO) 8 % (0-12); NEUTROPHILS # (AUTO) 28.9 10^3/uL (1.8-7.8); NEUTROPHILS % (AUTO) 85 % (42-75); NITRITE,URINE NEGATIVE (NEGATIVE); PH,URINE 5.5 (5-9); PLATELET COUNT 162 10^3/uL (130-400); PROTEIN,URINE 2+ (NEGATIVE)
[2023-01-26 09:33] LABS: WHITE BLOOD COUNT 34.2 10^3/uL (4.3-11.0)
[2023-01-26 09:42] LABS: INR 1.1 (0.8-1.4); PROTHROMBIN TIME PATIENT 14.2 SEC (12.2-14.7)
[2023-01-26 09:52] LABS: ALBUMIN 3.5 GM/DL (3.2-4.5); CALCIUM 9.1 MG/DL (8.5-10.1); CREATININE SERUM 1.87 MG/DL (0.60-1.30); POTASSIUM 4.3 MMOL/L (3.6-5.0); TOTAL PROTEIN 7.6 GM/DL (6.4-8.2)
[2023-01-26 10:00] LABS: RBC,URINE RARE /HPF
[2023-01-26 10:01] LABS: RENAL EPITHELIAL CELLS,URINE RARE /HPF; SQUAMOUS EPITHELIAL CELL,UR 0-2 /HPF; WHITE BLOOD CELL CASTS, URINE 0-2 /LPF
[2023-01-26 10:02] LABS: BACTERIA,URINE FEW /HPF
[2023-01-26 10:07] LABS: BILIRUBIN,URINE 1+ (NEGATIVE)
[2023-01-26 10:13] LABS: BAND NEUTROPHILS 8 %; EOSINOPHILS % (MANUAL) 4 %; LYMPHOCYTES % (MANUAL) 8 %; MONOCYTES % (MANUAL) 7 %; NEUTROPHILS % (MANUAL) 73 %
--- NOTE | 2023-01-26 10:13 | Diagnostic Imaging Report ---
INDICATION: Sepsis. Frontal chest obtained at 10:05 a.m. compared 03/29/2020. FINDINGS: Heart is mildly enlarged. There is central vascular congestion. There is no focal infiltrate or pneumothorax or pleural fluid. IMPRESSION: Cardiomegaly and central vascular congestion with no focal infiltrate or pleural fluid. Dictated by: Dictated on workstation # [id number]
[2023-01-26 10:14] LABS: PLATELET ESTIMATE ADEQUATE; RBC MORPH NORMAL; TOXIC GRANULATION/VACUOLAZATIO 1+
[2023-01-26] MEDS ORDERED: morphine INJ 10 MG/ML 1ML (SYR OR VIAL) IVP STA (10:24)
[2023-01-26] MEDS ORDERED: PIPERACILLIN SODIUM/TAZOBACTAM 4.5 GM in NS (IVPB) 100 ML IV ONE (10:30)
[2023-01-26] MEDS ORDERED: LACTATED RINGERS 1,000 ML IV ONE ×3 (10:30→13:45)
[2023-01-26] MEDS ORDERED: VANCOMYCIN INJECTION 1,000 MG in NS (IVPB) 250 ML IV SCH (10:30)
[2023-01-26] MEDS ORDERED: VANCOMYCIN 2000 MG/NS 500 ML IVPB IV ONE ×2 (11:00)
--- NOTE | 2023-01-26 11:23 | Diagnostic Imaging Report ---
PROCEDURE: CT abdomen and pelvis without contrast. TECHNIQUE: Multiple contiguous axial images were obtained through the abdomen and pelvis without the use of intravenous contrast. Auto Exposure Controls were utilized during the CT exam to meet ALARA standards for radiation dose reduction. INDICATION: Difficulty urinating. Groin infection. COMPARISON: 03/05/2018. FINDINGS: The heart is unremarkable. The lung bases are clear. Calcified granulomas are scattered in the liver and spleen. The gallbladder is mildly distended with gallstones layering in the gallbladder lumen. Stable benign-appearing nodule in the left adrenal gland measuring 1.8 cm. The right adrenal gland is unremarkable. The pancreas and kidneys have a normal appearance. There is no pathologically enlarged mesenteric or retroperitoneal adenopathy. The bowel loops are nondilated. The appendix is visualized in the right lower quadrant and has a normal appearance. There is no free fluid or free air. No acute osseous abnormalities. There is grade 1 anterolisthesis of L4 on L5. Scattered calcified aortic and iliac atherosclerotic plaque is seen without aneurysm. The urinary bladder is decompressed with a Hurtado in place. Inflammation and air is seen within the right inguinal region with extension into the proximal aspect of the scrotum on the right. No loculated fluid collection is seen. IMPRESSION: 1. Findings concerning for necrotizing fasciitis in the right inguinal region and proximal aspect of the scrotum on the right. No loculated collection to suggest abscess. Recommend continued close follow-up. 2. No acute abnormalities are seen within the abdomen and pelvis. Dictated by: Dictated on workstation # [id number]
--- NOTE | 2023-01-26 12:40 | Consultation - Surgery ---
LALITHA CEDEÑO 01/26/23 1240: History of Present Illness History of Present Illness Patient Consulted On(dyana/time) 01/26/23 12:29 Date Seen by Provider: Jan 26, 2023 Time Seen by Provider: 12:29 Reason for Visit: Necrotizing Fascitis of Rt inguinal region and scrotum History of Present Illness 57 M with a PMH of CAD, DMII, BL BKA, recurrent perianal infections, asthma, COPD, HTN, HLD, GERD, and a hiatal hernia presents to the ED with a 4 day hx of rt sided sharp inguinal pain rated 8/10 with radiation to back and associated urinary retention. Took at hydrocodone pill this morning at 6am that provided moderate relief. Pt states he has had multiple episodes of infections in the area and has but utilizing topical Bactrim therapy intermittently for over a year. He states he has been feeling weak and ill for the past 2 weeks but symptoms have increased over the last four days leading to his arrival to ED. States he has had a decrease in appetite, last meal was grits for breakfast yesterday. Drank 7 bottles of water last night and provided no relief. Voids have consisted of minimal output that is dark orange with a foul odor. Claims he has chronic constipation and has not had a BM since Sunday, denies any blood or dark black stools. Denies any fever, chills, CP, SOB, n/v, lightheadedness. States he does have a PRETTY since arrival. Allergies and Home Medications Allergies Coded Allergies: pregabalin (Verified Allergy, Severe, FEVER, 12/01/21) metformin (Unverified Allergy, Unknown, 02/10/22) Patient Home Medication List Home Medication List Reviewed: Yes Albuterol Sulfate (Ventolin Hfa) 1 Puff Puff, 2 PUFF INH Q4H PRN for SHORTNESS OF BREATH, (Reported) Entered as Reported by: ANGLE SAUNDERS on 03/06/18 0828 Atorvastatin Calcium (Atorvastatin Calcium) 80 Mg Tablet, 80 MG PO DAILY, (Reported) Entered as Reported by: GLORIA JACOBSEN on 03/30/20 1026 Budesonide/Formoterol Fumarate (Symbicort 160-4.5 Mcg Inhaler) 10.2 Gm Hfa.aer.ad, 2 PUFF IH BID, (Reported) Entered as Reported by: CAMILLE MCCAIN on 06/02/19 0827 Gabapentin (Gabapentin) 800 Mg Tablet, 800 MG PO TID, (Reported) Entered as Reported by: GLORIA JACOBSEN on 03/30/20 1010 Hydrocodone/Acetaminophen (Hydrocodone-Acetamin 7.5-325) 1 Each Tablet, 1 EACH PO Q4H PRN for PAIN-BREAKTHROUGH Prescribed by: MODESTO JACKSON on 12/01/21 1023 Ibuprofen (Ibu) 600 Mg Tablet, 600 MG PO Q6H PRN for PAIN-MILD (1-4)/FEVER 2ND LINE Prescribed by: KELSEA BLAIR on 04/02/20 1218 Insulin Degludec (Tresiba Flextouch U-200) 200 Unit/1 Ml Insuln.pen, 112 UNIT SQ 2000, (Reported) Entered as Reported by: GLORIA JACOBSEN on 03/30/20 1028 Insulin Lispro (Humalog Kwikpen) 100 Unit/1 Ml Insuln.pen, 75 UNIT SQ AC, (Reported) Entered as Reported by: GLORIA JACOBSEN on 03/30/20 1028 Losartan Potassium (Losartan Potassium) 50 Mg Tablet, 100 MG PO DAILY, (Reported) Entered as Reported by: GLORIA JACOBSEN on 03/30/20 1010 Pantoprazole Sodium (Pantoprazole Sodium) 40 Mg Tablet.dr, 40 MG PO DAILY PRN for HEARTBURN, (Reported) Entered as Reported by: GLORIA JACOBSEN on 03/30/20 1010 Past Liudqyg-Ketozr-Hupuej Hx Patient Social History Drug of Choice: E.D. REPORT: HX OF METH, LSD,ECSTASY,CRACK COCAINE, MUSHROOMS Smoking Status: Current Everyday Smoker Type Used: Cigarettes 2nd Hand Smoke Exposure: No Recent Hopitalizations: No Alcohol Use?: No Substance type: Marijuana Have you traveled recently?: No Immunizations Up To Date Tetanus Booster (TDap): Unknown PED Vaccines UTD: Yes Date of Pneumonia Vaccine: March 29, 2019 Date of Influenza Vaccine: Aug 28, 2021 Seasonal Allergies Seasonal Allergies: Yes (Hay fever, Pollen) Surgeries History of Surgeries: Yes (HIATAL HERNIA/BILAT BKA) Surgeries: Amputation, Orthopedic, Vascular Surgery Respiratory History of Respiratory Disorde: Yes Respiratory Disorders: Asthma, Sleep Apnea, COPD Cardiovascular History of Cardiac Disorders: No Cardiac Disorders: Chronic Edema/Swelling, Coronary Artery Disease, High Cholesterol, Hypertension, Peripheral Vascular Neurological History of Neurological Disord: No Neurological Disorders: Headaches /Migraines, Neuropathy Reproductive System Hx Reproductive Disorders: No Sexually Transmitted Disease: No HIV/AIDS: No Genitourinary History of Genitourinary Disor: Yes (HX ECOLI URINE) Genitourinary Disorders: Kidney Infection, Bladder Infection, UTI-Chronic Gastrointestinal History of Gastrointestinal Di: Yes Gastrointestinal Disorders: Gastroesophageal Reflux, Chronic Constipation, Hemorrhoids, Hiatal Hernia Musculoskeletal History of Musculoskeletal Dis: Yes (bilat lower extremity amputation, PHANTOM PAINS) Musculoskeletal Disorders: Amputee, Arthritis, Back Injury, Chronic Back Pain Endocrine History of Endocrine Disorders: Yes Endocrine Disorders: Diabetes, Insulin dep HEENT History of HEENT Disorders: Yes HEENT Disorders: Cataract Loss of Vision: Denies Hearing Impairment: Denies Cancer History of Cancer: No Psychosocial History of Psychiatric Problem: Yes Behavioral Health Disorders: Sleep Difficulties, Anxiety, Depression Integumentary History of Skin or Integumenta: Yes (DRY SKIN CURRENTLY) Blood Transfusions History of Blood Disorders: No Adverse Reaction to a Blood Tr: No Family Medical History Significant Family History: Heart Disease, Diabetes Family Medial History: Cardiovascular disease 19 FATHER ( heart attack) G8 BROTHER Diabetes mellitus 19 MOTHER ( complications diabetes) Psychosocial problem G8 BROTHER (in senior care) Review of Systems-General Constitutional: No chills, No diaphoresis, No fever; malaise EENTM: No double vision, No nose congestion, No throat pain Respiratory: No cough, No hemoptysis, No short of breath Cardiovascular: No chest pain, No edema; vascular heart diseas Gastrointestinal: RUQ (pain with deep palpation), constipation, loss of appetite; No melena, No nausea, No vomiting Genitourinary: decreased output, dysuria, pain (over Rt inguinal region and diffusely across scrotum), other (errythema surrounding the entire inguinal region and genitalia, no discharge or lesion seen on inspection, foul odor coming from the area ) Musculoskeletal: back pain (low back pain R>L); No joint pain, No muscle pain Skin: No lesions, No lumps; other (errythema of inguinal region and genitalia ) Psychiatric/Neurological: Denies Anxiety, Denies Depressed Physical Exam-General Problems Physical Exam Vital Signs Vital Signs - First Documented 01/26/23 08:25 Temp 36.4 Pulse 115 Resp 18 B/P (MAP) 110/78 (89) Pulse Ox 94 Capillary Refill : Less Than 3 Seconds General Appearance: moderate distress, obese Eyes: Bilateral Eye Normal Inspection, Bilateral Eye PERRL, Bilateral Eye EOMI HEENT: PERRL/EOMI, other (moist mucus membranes ) Neck: non-tender, full range of motion Respiratory: chest non-tender, no respiratory distress, no accessory muscle use, wheezing (mild on expiration) Cardiovascular: regular rate, rhythm, no murmur Peripheral Pulses: 3+ Radial Pulses (R), 3+ Radial Pulses (L) Gastrointestinal: normal bowel sounds, no pulsatile mass, distended (mild ), tenderness (RUQ on deep palpation ) Genital/Rectal: other (Errythema of genitals, no discharge seen, shultz cath in place, ) Back: normal inspection, vertebral tenderness (lumbar region R>L) Extremities: non-tender, normal capillary refill, other (BL BKA, ) Neurologic/Psychiatric: alert, oriented x 3 Skin: normal color, warm/dry, diaphoresis (on inguinal region ) Lymphatic: inguinal node tender (R) Data Review Labs Laboratory Tests 01/26/23 09:20: White Blood Count 34.2*H, Red Blood Count 5.38, Hemoglobin 15.7, Hematocrit 48, Mean Corpuscular Volume 88, Mean Corpuscular Hemoglobin 29, Mean Corpuscular Hemoglobin Concent 33, Red Cell Distribution Width 12.9, Platelet Count 162, Mean Platelet Volume 9.6, Immature Granulocyte % (Auto) 1, Neutrophils (%) (Auto) 85H, Lymphocytes (%) (Auto) 5L, Monocytes (%) (Auto) 8, Eosinophils (%) (Auto) 1, Basophils (%) (Auto) 1, Neutrophils # (Auto) 28.9H, Lymphocytes # (Auto) 1.8, Monocytes # (Auto) 2.6H, Eosinophils # (Auto) 0.2, Basophils # (Auto) 0.2H, Immature Granulocyte # (Auto) 0.5H, Neutrophils % (Manual) 73, Lymphocytes % (Manual) 8, Monocytes % (Manual) 7, Eosinophils % (Manual) 4, Band Neutrophils 8, Toxic Granulation 1+, Platelet Estimate ADEQUATE, Blood Morphology Comment NORMAL, Prothrombin Time 14.2, INR Comment 1.1, Activated Partial Thromboplast Time 30, Urine Color DARK YELLOW, Urine Clarity CLEAR, Urine pH 5.5, Urine Specific [place] >=1.030, Urine Protein 2+H, Urine Glucose (UA) NEGATIVE, Urine Ketones NEGATIVE, Urine Nitrite NEGATIVE, Urine Bilirubin 1+H, Urine Urobilinogen 1.0, Urine Leukocyte Esterase TRACEH, Urine RBC (Auto) NEGATIVE, Urine RBC RARE, Urine WBC 5-10H, Urine Squamous Epithelial Cells 0-2, Urine Renal Epithelial Cells RARE, Urine Crystals NONE, Urine Bacteria FEWH, Urine Casts PRESENT, Urine Coarse Granular Casts 0-2H, Urine White Blood Cell Casts 0-2H, Urine Mucus NEGATIVE, Urine Culture Indicated YES, Sodium Level 134L , Potassium Level 4.3, Chloride Level 101, Carbon Dioxide Level 20L, Anion Gap 13, Blood Urea Nitrogen 27H, Creatinine 1.87H, Estimat Glomerular Filtration Rate 41, BUN/Creatinine Ratio 14, Glucose Level 161H, Lactic Acid Level 2.09*H, Calcium Level 9.1, Corrected Calcium 9.5, Total Bilirubin 1.0, Aspartate Amino Transf (AST/SGOT) 14, Alanine Aminotransferase (ALT/SGPT) 18, Alkaline Phosphatase 131, Total Protein 7.6, Albumin 3.5 01/26/23 09:25: Glucometer 157H Assessment/Plan Assessment/Plan Assessment/Plan Assesment: Sepsis secondary to necrotizing fasciitis of Rt inguinal region and proximal scrotum uncontrolled DM Leukocytosis COPD Tachycardia Plan: NPO Surgical debriedment of area today by Dr. 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 HPI per ED: Mr. Doran is a 57 yo M with PMH of CAD, DM, B/L BKA, and recurrent perineal infections with prior surgical intervention who presents to the ED today with 4 day hx of increasing sharp right sided groin pain which radiates to his back accompanied with poor urine output. His symptoms began Sunday and he visited the clinic on Sunday with these complaints where he received a Rx for ABX which provided some temporary improvement of his discomfort. He notes that he felt like there was a palpable nodule in his right scrotum on Sunday and now feels fullness and pain in his right groin and inguin al regions. He also notes that he was only urinating dribbles prior to receiving the abx on Sunday and since then has only minimally increased his urine output, a bedside bladder scan during the interview only showed 26mL of urine present in his bladder. He states that he last ate a bowl of grapes yesterday and last drank 40oz of water this morning. He denies N/V/F/C/D. Timing/Duration: week, getting worse, changing over time Severity/Quality: moderate, dull, full Location: groin, scrotal Radiation: other (up his back) Activities at Onset: none Modifying Factors: Worsens With Movement, Worsens With Palpation Associated Symptoms: No dysuria, No fever/chills, No loss of bladder control; lower back pain, other (feels like he needs to pee, but unable to void to relief) When I saw pt he appeared comfortable in ICU, complaints of pain in right groin. He has 2 weeks of generalized weakness and 4 days of severe pain; which brought him to ER. Allergies and Home Medications Allergies Coded Allergies: pregabalin (Verified Allergy, Severe, FEVER, 12/01/21) metformin (Unverified Allergy, Unknown, 02/10/22) Patient Home Medication List Home Medication List Reviewed: Yes Albuterol Sulfate (Ventolin Hfa) 1 Puff Puff, 2 PUFF INH Q4H PRN for SHORTNESS OF BREATH, (Reported) Entered as Reported by: ANGLE SAUNDERS on 03/06/18 0828 Atorvastatin Calcium (Atorvastatin Calcium) 80 Mg Tablet, 80 MG PO DAILY, (Reported) Entered as Reported by: GLORIA JACOBSEN on 03/30/20 1026 Budesonide/Formoterol Fumarate (Symbicort 160-4.5 Mcg Inhaler) 10.2 Gm Hfa.aer.ad, 2 PUFF IH BID, (Reported) Entered as Reported by: CAMILLE MCCAIN on 06/02/19 0827 Gabapentin (Gabapentin) 800 Mg Tablet, 800 MG PO TID, (Reported) Entered as Reported by: GLORIA JACOBSEN on 03/30/20 1010 Hydrocodone/Acetaminophen (Hydrocodone-Acetamin 7.5-325) 1 Each Tablet, 1 EACH PO Q4H PRN for PAIN-BREAKTHROUGH Prescribed by: MODESTO AJCKSON on 12/01/21 1023 Ibuprofen (Ibu) 600 Mg Tablet, 600 MG PO Q6H PRN for PAIN-MILD (1-4)/FEVER 2ND LINE Prescribed by: KELSEA BLAIR on 04/02/20 1218 Insulin Degludec (Tresiba Flextouch U-200) 200 Unit/1 Ml Insuln.pen, 112 UNIT SQ 2000, (Reported) Entered as Reported by: GLORIA JACOBSEN on 03/30/20 1028 Insulin Lispro (Humalog Kwikpen) 100 Unit/1 Ml Insuln.pen, 75 UNIT SQ AC, (Reported) Entered as Reported by: GLROIA JACOBSEN on 03/30/20 1028 Losartan Potassium (Losartan Potassium) 50 Mg Tablet, 100 MG PO DAILY, (Reported) Entered as Reported by: GLORIA JACOBSEN on 03/30/20 1010 Pantoprazole Sodium (Pantoprazole Sodium) 40 Mg Tablet.dr, 40 MG PO DAILY PRN for HEARTBURN, (Reported) Entered as Reported by: GLORIA JACOBSEN on 03/30/20 1010 Past Qfiugww-Xwcbqi-Hivhzr Hx Patient Social History Smoking Status: Current Everyday Smoker Sexual Abuse: No Substance type: Marijuana Surgeries History of Surgeries: Yes (multiple I&D of perianal area) Surgeries: Orthopedic (B/L BKA) Respiratory History of Respiratory Disorde: Yes Respiratory Disorders: Asthma, COPD Cardiovascular History of Cardiac Disorders: Yes Cardiac Disorders: Coronary Artery Disease, High Cholesterol, Hypertension Neurological History of Neurological Disord: No Neurological Disorders: Neuropathy Genitourinary History of Genitourinary Disor: Yes (urinary retention) Gastrointestinal History of Gastrointestinal Di: Yes Gastrointestinal Disorders: Gastroesophageal Reflux, Hiatal Hernia Musculoskeletal History of Musculoskeletal Dis: Yes Musculoskeletal Disorders: Amputee Endocrine History of Endocrine Disorders: Yes Endocrine Disorders: Diabetes, Insulin dep HEENT History of HEENT Disorders: No Loss of Vision: Denies Hearing Impairment: Denies Cancer History of Cancer: No Psychosocial History of Psychiatric Problem: No Integumentary History of Skin or Integumenta: Yes (chronic infections) Family Medical History Significant Family History: Heart Disease, Diabetes Family Medial History: Cardiovascular disease 19 FATHER ( heart attack) G8 BROTHER Diabetes mellitus 19 MOTHER ( complications diabetes) Psychosocial problem G8 BROTHER (in senior care) Review of Systems-General Constitutional: No chills, No diaphoresis, No fever; malaise EENTM: No double vision, No nose congestion, No throat pain Respiratory: No cough, No hemoptysis, No short of breath Cardiovascular: No chest pain, No edema; vascular heart diseas Gastrointestinal: RUQ (pain with deep palpation), constipation, loss of appetite; No melena, No nausea, No vomiting Genitourinary: decreased output, dysuria, pain (over Rt inguinal region and diffusely across scrotum), other (errythema surrounding the entire inguinal region and genitalia, no discharge or lesion seen on inspection, foul odor coming from the area ) Musculoskeletal: back pain (low back pain R>L); No joint pain, No muscle pain Skin: No lesions, No lumps; other (errythema of inguinal region and genitalia ) Psychiatric/Neurological: Denies Anxiety, Denies Depressed Physical Exam-General Problems Physical Exam General Appearance: moderate distress, obese Eyes: Bilateral Eye PERRL, Bilateral Eye EOMI HEENT: pharynx normal; No scleral icterus (R), No scleral icterus (L); other (moist mucus membranes, poor dentition) Neck: non-tender, full range of motion Respiratory: chest non-tender, no respiratory distress, no accessory muscle use, wheezing (mild on expiration) Cardiovascular: regular rate, rhythm, no murmur Peripheral Pulses: 3+ Radial Pulses (R), 3+ Radial Pulses (L) Gastrointestinal: normal bowel sounds, no pulsatile mass, distended (mild ), tenderness (RUQ on deep palpation ) Rectal: deferred Genital/Rectal: other (Errythema of right scrotum, no discharge seen, shultz cath in place ) Back: vertebral tenderness (lumbar region R>L) Extremities: non-tender, normal capillary refill, other (BL BKA, ) Neurologic/Psychiatric: alert, oriented x 3 Skin: normal color, warm/dry, diaphoresis (on inguinal region ) Lymphatic: no adenopathy (neck, axilla), inguinal node tender (R) Data Review Radiology Date of Exam:01/26/23 CT ABDOMEN/PELVIS WO PROCEDURE: CT abdomen and pelvis without contrast. TECHNIQUE: Multiple contiguous axial images were obtained through the abdomen and pelvis without the use of intravenous contrast. Auto Exposure Controls were utilized during the CT exam to meet ALARA standards for radiation dose reduction. INDICATION: Difficulty urinating. Groin infection. COMPARISON: 03/05/2018. FINDINGS: The heart is unremarkable. The lung bases are clear. Calcified granulomas are scattered in the liver and spleen. The gallbladder is mildly distended with gallstones layering in the gallbladder lumen. Stable benign-appearing nodule in the left adrenal gland measuring 1.8 cm. The right adrenal gland is unremarkable. The pancreas and kidneys have a normal appearance. There is no pathologically enlarged mesenteric or retroperitoneal adenopathy. The bowel loops are nondilated. The appendix is visualized in the right lower quadrant and has a normal appearance. There is no free fluid or free air. No acute osseous abnormalities. There is grade 1 anterolisthesis of L4 on L5. Scattered calcified aortic and iliac atherosclerotic plaque is seen without aneurysm. The urinary bladder is decompressed with a Shultz in place. Inflammation and air is seen within the right inguinal region with extension into the proximal aspect of the scrotum on the right. No loculated fluid collection is seen. IMPRESSION: 1. Findings concerning for necrotizing fasciitis in the right inguinal region and proximal aspect of the scrotum on the right. No loculated collection to suggest abscess. Recommend continued close follow-up. 2. No acute abnormalities are seen within the abdomen and pelvis. 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 Sepsis uncontrolled DM Leukocytosis COPD Tachycardia Plan: NPO, To OR for surgical debriedment of right groing, discussed risks and complications with pt; not limited to pain, bleeding, infection, scar, damage to vessels or nerves and need for further procedure, consent obtained Continue IV abx therpay, start SSI to gain glucose control, pain control with IV pain medications, Blood cultures pending and will get wound cultures continue supplemental O2, start MAT protocol IVF, keep shultz in place Supervisory-Addendum Brief Verification & Attestation Participated in pt care: history, MDM, physical Personally performed: exam, history, MDM, supervision of care Care discussed with: Medical Student Procedures: n/a Verification and Attestation of Medical Student E/M Service A medical student performed and documented this service. I then reviewed and verified all information documented by the medical student and made modifications to such information, when appropriate. I personally performed a physical exam, medical decision making and then discussed any differences between the notes and made revisions as necessary to create one note. Sebas Townsend , 01/26/23 , 14:50 LALITHA CEDEÑO Jan 26, 2023 12:40 SEBAS TOWNSEND DO Jan 26, 2023 14:47
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
[2023-01-26] MEDS ORDERED: LACTATED RINGERS 1,000 ML IV PRN (13:00)
[2023-01-26] MEDS ORDERED: EPINEPHrine 1 MG INJECTION 4 MG in NS (IVPB) 248 ML IV SCH (13:45)
[2023-01-26] MEDS: morphine INJ 10 MG/ML 1ML (SYR OR VIAL) IV PRN ×3 (13:52→20:30)
[2023-01-26] MEDS: ONDANSETRON 4 MG/2 ML (SDV) Z0FRAN IV PRN ×2 (14:14→20:30)
[2023-01-26] MEDS: NOREPINEPHRINE 8 MG/250 ML 250 ML IV SCH ×2 (14:15→22:01)
[2023-01-26] MEDS: VASOPRESSIN INJECTION 20 UNIT in NS (IVPB) 100 ML IV SCH (14:15)
[2023-01-26] MEDS ORDERED: MIDAZOLAM 2 MG/2 ML (VERSED) VIAL ONE (14:52)
[2023-01-26] MEDS ORDERED: fentaNYL INJ 100 MCG/2 ML AMP ONE (14:52)
[2023-01-26] MEDS ORDERED: ONDANSETRON 4 MG/2 ML (SDV) Z0FRAN ONE (14:52)
[2023-01-26] MEDS ORDERED: SEVOFLURANE (ULTANE) 15 ML INHAL SOLN ONE ×2 (14:52→15:35)
[2023-01-26] MEDS ORDERED: LIDOCAINE PF 2% 5 ML (XYLOCAINE) VIAL ONE (14:52)
[2023-01-26] MEDS ORDERED: proPOfol 200 MG/20 ML (DIPRIVAN) VIAL IV ONE (14:52)
[2023-01-26] MEDS ORDERED: ROCURONIUM 50 MG/5 ML (ZEMURON) VIAL IV ONE (14:53)
[2023-01-26] MEDS ORDERED: METOCLOPRAMIDE INJ 10 MG/2 ML (REGLAN) ONE (15:11)
[2023-01-26] MEDS ORDERED: SUGAMMADEX 500 MG/5 ML VIAL (BRIDION) IV ONE (15:36)
[2023-01-26] MEDS ORDERED: ASPI1TAB23 PO (15:39)
[2023-01-26] MEDS ORDERED: IBUP-2473 PO (15:39)
[2023-01-26] MEDS ORDERED: DULA4.5P SQ (15:39)
[2023-01-26 15:49] VITALS: BP 98/79
--- NOTE | 2023-01-26 15:52 | Progress Note-Post Operative ---
Post-Operative Progess Note Surgeon (s)/Rubber Block Layer (s) Surgeon SEBAS TOWNSEND DO Rubber Block Layer: HELIO Olivas Pre-Operative Diagnosis Necrotizing Fasciitis Post-Operative Diagnosis same Procedure & Operative Findings Date of Procedure 01/26/23 Procedure Performed/Findings Incision and Drainage right groin abscess with packing Debridement subQ fat 11 x 5 x 6cm Anesthesia Type GET Estimated Blood Loss Estimated blood loss (mL): less than 30ml Specimens/Packing Specimens Removed necrotic tissue SEBAS TOWNSEND DO Jan 26, 2023 15:52
--- NOTE | 2023-01-26 15:58 | Anesthesia-General Post-Op ---
General Patient Condition Mental Status/LOC: Same as Preop Cardiovascular: Satisfactory Nausea/Vomiting: Absent Respiratory: Satisfactory Pain: Controlled Complications: Absent Post Op Complications Complications None Follow Up Care/Instructions Patient Instructions None needed. Anesthesia/Patient Condition Patient Condition Patient is doing well, no complaints, stable vital signs, no apparent adverse anesthesia problems. No complications reported per nursing. D/C home per [facility] Criteria: Yes KRISTA ESPITIA CRNA Jan 26, 2023 15:58
[2023-01-26 16:00] VITALS: BP 108/87
[2023-01-26] MEDS ORDERED: ONDANSETRON 4 MG/2 ML (SDV) Z0FRAN IVP PRN (16:00)
[2023-01-26] MEDS ORDERED: HYDROmorphone 2 MG/ML VIAL (DILAUDID) IV ONE (16:00)
[2023-01-26 16:10] VITALS: BP 113/92
[2023-01-26 16:20] VITALS: BP 141/64
[2023-01-26 16:30] VITALS: BP 90/52
[2023-01-26 16:35] VITALS: BP 96/55
[2023-01-26] MEDS: LACTATED RINGERS 1,000 ML IV SCH ×2 (16:43→22:01)
[2023-01-26] MEDS: PIPERACILLIN SODIUM/TAZOBACTAM 4.5 GM in NS (IVPB) 100 ML IV SCH (16:46)
[2023-01-26] MEDS ORDERED: NS IV 500 ML 500 ML IV PRN (19:45)
[2023-01-26] MEDS: PANTOPRAZOLE 40 MG (PROTONIX) VIAL IV SCH (22:00)
[2023-01-27] MEDS: VASOPRESSIN INJECTION 20 UNIT in NS (IVPB) 100 ML IV SCH (00:15)
[2023-01-27] MEDS: PIPERACILLIN SODIUM/TAZOBACTAM 4.5 GM in NS (IVPB) 100 ML IV SCH ×3 (00:16→17:13)
[2023-01-27] MEDS: LACTATED RINGERS 1,000 ML IV SCH (04:04)
[2023-01-27 05:20] LABS: BASOPHILS # (AUTO) 0.1 10^3/uL (0.0-0.1); BASOPHILS % (AUTO) 0 % (0-10); EOSINOPHILS # (AUTO) 0.2 10^3/uL (0.0-0.3); EOSINOPHILS % (AUTO) 1 % (0-10); HEMATOCRIT 41 % (40-54); HEMOGLOBIN 13.2 g/dL (13.3-17.7); LYMPHOCYTES # (AUTO) 2.2 10^3/uL (1.0-4.0); LYMPHOCYTES % (AUTO) 9 % (12-44); MEAN CORPUSCULAR HEMOGLOBIN 29 pg (25-34); MEAN CORPUSCULAR HGB CONC 32 g/dL (32-36); MEAN CORPUSCULAR VOLUME 89 fL (80-99); MONOCYTES % (AUTO) 9 % (0-12); NEUTROPHILS # (AUTO) 18.3 10^3/uL (1.8-7.8); NEUTROPHILS % (AUTO) 80 % (42-75); PLATELET COUNT 135 10^3/uL (130-400); WHITE BLOOD COUNT 22.9 10^3/uL (4.3-11.0)
[2023-01-27 05:28] LABS: POTASSIUM 4.1 MMOL/L (3.6-5.0)
[2023-01-27 05:30] LABS: CALCIUM 8.2 MG/DL (8.5-10.1)
[2023-01-27 05:34] LABS: CREATININE SERUM 1.22 MG/DL (0.60-1.30); PHOSPHORUS 2.8 MG/DL (2.3-4.7)
[2023-01-27 05:36] LABS: MAGNESIUM 1.6 MG/DL (1.6-2.4)
[2023-01-27] MEDS ORDERED: POTASSIUM CL 10MEQ/50ML IVPB 50 ML IV SCH (06:00)
[2023-01-27] MEDS ORDERED: KCL 20 MEQ TAB (K-DUR) PO SCH (06:00)
[2023-01-27] MEDS ORDERED: MAGNESIUM 1 GM/100 ML IVPB 100 ML IV SCH (06:00)
[2023-01-27] MEDS: NOREPINEPHRINE 8 MG/250 ML 250 ML IV SCH (06:07)
[2023-01-27] MEDS: morphine INJ 10 MG/ML 1ML (SYR OR VIAL) IV PRN ×2 (06:12→14:11)
--- NOTE | 2023-01-27 08:45 | Progress Note - Hospitalist ---
Subjective HPI/CC On Admission Date Seen by Provider: Jan 27, 2023 Time Seen by Provider: 11:00 CC: Necrotizing fasciitis HPI: This is a 57yoWM clinic patient of [facility] who has a h/o DM and bilateral amputations who presents to the ER with right groin pain and was found to have findings c/w necrotizing fasciitis and is planing on undergoing incision and drainage by Dr Ballesteros this afternoon. Patient is high risk for complications so he will be admitted to ICU and closely monitored. He reports he began having pain and redness several days ago in his right groin and it worsened the past 24 hours. No drainage. Subjective/Events-last exam No major events Doing well Minimal pain Moving down to 4th floor Advancing diet Labs reviewed Review of Systems General: Fatigue, Malaise Focused Exam Lactate Level 01/26/23 09:20: Lactic Acid Level 2.09*H 01/26/23 20:32: Lactic Acid Level 1.40 Time of Focused Exam: 11:50 Objective Exam Vital Signs Vital Signs Date Time Temp Pulse Resp B/P (MAP) Pulse Ox O2 Delivery O2 Flow Rate FiO2 01/28/23 06:38 92 Nasal Cannula 2.00 01/28/23 06:00 83 108/64 (79) 01/28/23 05:00 9 01/28/23 04:32 36.0 Capillary Refill : Less Than 3 Seconds General Appearance: No Apparent Distress, WD/WN, Chronically ill, Obese Respiratory: Lungs Clear, Normal Breath Sounds Cardiovascular: Regular Rate, Rhythm Neurologic/Psychiatric: Alert, Oriented x3, No Motor/Sensory Deficits, Normal Mood/Affect Results/Procedures Lab Laboratory Tests 01/28/23 04:30 Patient resulted labs reviewed. 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 (2) Peripheral vascular disease (3) IDDM (insulin dependent diabetes mellitus) (4) Chronic pain (5) Hypertension (6) Hyperlipidemia (7) BMI 40.0-44.9, adult (8) DVT prophylaxis (9) Debility (10) Tobacco use (11) Marijuana use (12) Presumed JORGE Plan: IV abx I&D Pain control Diagnosis/Problems Diagnosis/Problems (1) Necrotizing fasciitis Status: Acute (2) Peripheral vascular disease Status: Chronic (3) IDDM (insulin dependent diabetes mellitus) Status: Chronic (4) Chronic pain Status: Chronic (5) Hyperlipidemia Status: Chronic (6) Hypertension Status: Chronic (7) Tobacco abuse Status: Chronic (8) Debility Status: Chronic SARAHY SANTANA DO Jan 27, 2023 08:45
[2023-01-27] MEDS ORDERED: HYDROcodone/APAP 5 MG/325 MG (LORTAB) TAB ONE (08:53)
[2023-01-27] MEDS: HYDROcodone/APAP 5 MG/325 MG (LORTAB) TAB PO PRN ×2 (08:56→14:07)
[2023-01-27] MEDS: VANCOMYCIN 1,750 MG/NS 500 ML IVPB IV SCH ×4 (08:56→20:16)
[2023-01-27] MEDS: PANTOPRAZOLE 40 MG (PROTONIX) VIAL IV SCH (08:58)
[2023-01-27] MEDS ORDERED: LOPERAMIDE 2 MG (IMODIUM) TABLET PO PRN (09:00)
[2023-01-27] MEDS ORDERED: ACETAMINOPHEN 325 MG TABLET PO PRN (09:00)
[2023-01-27] MEDS ORDERED: CALCIUM CARBONATE 500 MG (TUMS) TAB.CHEW PO PRN (09:00)
[2023-01-27] MEDS ORDERED: VANCOMYCIN 2000 MG/NS 500 ML IVPB IV SCH ×2 (09:00)
[2023-01-27] MEDS ORDERED: BISACODYL 10 MG SUPP (DULCOLAX) PR PRN (09:00)
[2023-01-27] MEDS ORDERED: MENTHOL/ZINC OXIDE (CALMOSEPTINE) 113 GM TUBE TP PRN (09:00)
[2023-01-27] MEDS ORDERED: diphenhydrAMINE 25 MG TAB (BENADRYL) PO PRN ×2 (09:00)
[2023-01-27] MEDS ORDERED: ALPRAZolam 0.25 MG (XANAX) TAB PO PRN (09:00)
[2023-01-27] MEDS ORDERED: DOCUSATE SODIUM 100 MG (COLACE) CAP PO PRN (09:00)
[2023-01-27] MEDS ORDERED: LACTULOSE SYRUP 10GM/15ML (ENULOSE) 30ML UDC PO PRN (09:00)
[2023-01-27] MEDS ORDERED: MELATONIN 3 MG TABLET PO PRN (09:00)
[2023-01-27] MEDS ORDERED: ONDANSETRON 4 MG (ZOFRAN) ORAL DISSOLVE TAB PO PRN (09:00)
[2023-01-27] MEDS: SENNA W/DOCUSATE (SENOKOT S) TABLET PO SCH ×2 (09:03→20:19)
[2023-01-27] MEDS: polyethylene glycoL POWDER 17 GM (MIRALAX) PACK PO SCH ×2 (09:03→20:19)
[2023-01-27] MEDS: ENOXAPARIN 40 MG/0.4 ML (LOVENOX) SYR SC SCH ×2 (09:06→20:15)
--- NOTE | 2023-01-27 10:32 | Progress Note - Surgery ---
LALITHA CEDEÑO 01/27/23 1032: Subjective Date Seen by a Provider: Jan 27, 2023 Time Seen by a Provider: 09:30 Subjective/Events-last exam 57 M s/p I&D of Rt inguinal necrotizing fasciitis POD 1. Pt states he has an improvement in pain rating at 3-4/10 when laying still described as a dull ache and 7/10 with movement of the LE. Mild decrease in radiating back pain compared to yesterday. Pt complained of feeling feverish and diaphoretic throughout the night but was never found to have a fever. Pt reported reflux symptoms throughout the night that have since subsided today. States he is passing flatus but no BM since last Sunday. Shultz in place with good urine output. Padded dressing was changed by night nursing crew and was noted to have serosanguenous drainage but no blood noticed. Packing still in place with surrounding erythema R>L. States he continues to have a PRETTY since admission. Denies any n/v, CP, SOB, or numbness surrounding the area. Review of Systems General: Night Sweats, Other (subjective fever ) HEENT: Head Aches; No Visual Changes Pulmonary: No Dyspnea, No Cough Cardiovascular: No: Chest Pain, Palpitations Gastrointestinal: Constipation; No: Nausea, Vomiting Genitourinary: No Dysuria, No Frequency Musculoskeletal: back pain (Lumbar region R>L) Neurological: No: Weakness, Numbness Focused Exam Lactate Level 01/26/23 09:20: Lactic Acid Level 2.09*H 01/26/23 20:32: Lactic Acid Level 1.40 Time of Focused Exam: 11:50 Objective Exam Vital Signs Date Time Temp Pulse Resp B/P (MAP) Pulse Ox O2 Delivery O2 Flow Rate FiO2 01/27/23 10:00 85 19 81/58 (66) 95 Nasal Cannula 2.00 01/27/23 09:00 87 8 128/63 (85) 94 Nasal Cannula 2.00 01/27/23 08:17 36.2 01/27/23 08:00 97 Nasal Cannula 2.00 01/27/23 08:00 84 14 122/63 (84) 97 Nasal Cannula 2.00 01/27/23 07:00 88 01/27/23 07:00 93 13 129/59 (84) 98 Nasal Cannula 2.00 01/27/23 06:00 92 22 134/76 (95) 98 Nasal Cannula 2.00 01/27/23 05:00 87 26 123/61 (81) 95 Nasal Cannula 2.00 01/27/23 04:00 87 15 126/66 (86) 98 Nasal Cannula 2.00 01/27/23 04:00 Nasal Cannula 2.00 01/27/23 04:00 94 Nasal Cannula 2.00 01/27/23 03:00 91 129/57 (81) 100 Nasal Cannula 2.00 01/27/23 02:53 36.6 Nasal Cannula 2.00 01/27/23 02:00 92 131/61 (84) 97 Nasal Cannula 2.00 01/27/23 01:00 98 103/57 (72) 96 Nasal Cannula 2.00 01/27/23 01:00 94 01/27/23 00:18 96 Nasal Cannula 2.00 01/27/23 00:17 36.8 Nasal Cannula 2.00 01/27/23 00:00 92 15 107/60 (76) 96 Nasal Cannula 2.00 01/26/23 23:00 98 15 118/68 (85) 97 Nasal Cannula 2.00 01/26/23 22:00 100 16 145/71 (95) 99 Nasal Cannula 2.00 01/26/23 21:00 101 16 141/79 (99) 95 Nasal Cannula 2.00 01/26/23 20:00 101 14 116/77 (90) 97 Nasal Cannula 2.00 01/26/23 20:00 97 Nasal Cannula 2.00 01/26/23 19:22 36.7 01/26/23 19:00 102 01/26/23 19:00 106 26 117/62 (80) 98 Nasal Cannula 2.00 01/26/23 19:00 Nasal Cannula 2.00 01/26/23 18:00 111 16 97 Nasal Cannula 2.00 01/26/23 17:00 118 23 102/56 (71) 94 Nasal Cannula 2.00 01/26/23 16:40 Nasal Cannula 3.00 01/26/23 16:35 38.5 22 96/55 (69) 96 Nasal Cannula 3.00 01/26/23 16:30 22 90/52 (65) 95 Nasal Cannula 3.00 01/26/23 16:30 Nasal Cannula 3.00 01/26/23 16:20 38.6 24 141/64 (89) 95 Nasal Cannula 4.00 01/26/23 16:15 Nasal Cannula 4.00 01/26/23 16:10 24 113/92 (99) 96 Nasal Cannula 4.00 01/26/23 16:00 28 108/87 (94) 97 Nasal Cannula 4.00 01/26/23 16:00 Nasal Cannula 01/26/23 16:00 Nasal Cannula 4.00 01/26/23 16:00 125 24 113/92 (99) 95 Nasal Cannula 2.00 01/26/23 15:49 OxyMask 10.00 01/26/23 15:49 39.3 24 98/79 (85) 94 OxyMask 10.00 01/26/23 14:24 95 Nasal Cannula 2.00 01/26/23 14:15 112 122/80 01/26/23 14:15 116 127/75 01/26/23 14:00 112 12 122/80 (101) 94 Nasal Cannula 2.00 01/26/23 13:17 37.1 116 16 127/75 (92) 95 Nasal Cannula 2.00 01/26/23 13:05 143/95 l I & O 01/27/23 07:00 Intake Total 8340 ml Output Total 3125 ml Balance 5215 ml Capillary Refill : Less Than 3 Seconds General Appearance: No Apparent Distress, WD/WN, Chronically ill, Obese HEENT: PERRL/EOMI, Moist Mucous Membranes Neck: Non Tender; No Lymphadenopathy (L), No Lymphadenopathy (R) Respiratory: Chest Non Tender, Lungs Clear, Normal Breath Sounds, No Accessory Muscle Use, No Respiratory Distress Cardiovascular: No Edema, No Murmur; No Tachycardia Peripheral Pulses: 3+ Radial Pulses (R), 3+ Radial Pulses (L) Gastrointestinal: normal bowel sounds, no pulsatile mass, distended (mild ), tenderness (RUQ on deep palpation ) Extremity: Non Tender, Other (BL BKA ) Neurologic/Psychiatric: Alert, Oriented x3, No Motor/Sensory Deficits, Normal Mood/Affect Skin: Normal Color, Warm/Dry, Erythema (Diffusley across the inguinal region ), Other (Rt groin tender to palpation, improved since yesterday ) Lymphatic: Inguinal Node Tender (R) Results Lab Laboratory Tests 01/26/23 20:32: Lactic Acid Level 1.40 01/26/23 21:19: Glucometer 158H 01/27/23 04:05: White Blood Count 22.9H, Red Blood Count 4.57, Hemoglobin 13.2L, Hematocrit 41, Mean Corpuscular Volume 89, Mean Corpuscular Hemoglobin 29, Mean Corpuscular Hemoglobin Concent 32, Red Cell Distribution Width 12.9, Platelet Count 135, Me an Platelet Volume 10.0, Immature Granulocyte % (Auto) 1, Neutrophils (%) (Auto) 80H, Lymphocytes (%) (Auto) 9L, Monocytes (%) (Auto) 9, Eosinophils (%) (Auto) 1, Basophils (%) (Auto) 0, Neutrophils # (Auto) 18.3H, Lymphocytes # (Auto) 2.2, Monocytes # (Auto) 2.0H, Eosinophils # (Auto) 0.2, Basophils # (Auto) 0.1, Immature Granulocyte # (Auto) 0.2H, Sodium Level 136, Potassium Level 4.1, Chloride Level 103, Carbon Dioxide Level 22, Anion Gap 11, Blood Urea Nitrogen 21H, Creatinine 1.22, Estimat Glomerular Filtration Rate 69, BUN/Creatinine Ratio 17, Glucose Level 143H, Calcium Level 8.2L, Phosphorus Level 2.8, Magnesium Level 1.6 Microbiology 01/26/23 MRSA Screen - Final, Complete MRSA not isolated Assessment/Plan Assessment/Plan Assessment/Plan s/p I&D for Necrotizing Fasciitis of right groin POD 1 Sepsis- lactic down from 2.09 to 1.40 today uncontrolled DM Leukocytosis- down from 34.2 to 22.9 today COPD Tachycardia- resolved GERD Anemia- Hgb dropped from 15.7 to 13.2 today constipation Plan: Advance diet today Continue IV abx therpay, continue SSI to gain glucose control, pain control with IV pain medications, Blood and wound cultures pending, serial CBCs to monitor Hgb continue supplemental O2, continue MAT protocol IVF, keep shultz in place continue protonix therapy change packing today stool softeners CHATO GARCIA DO 01/27/23 1325: Subjective Time Seen by a Provider: 12:26 Subjective/Events-last exam Pt seen and examined, states pain is moderated but controlled with IV meds. He is tolerating diet. Review of Systems General: Night Sweats, Other (subjective fever ) HEENT: Head Aches; No Visual Changes Pulmonary: No Dyspnea, No Cough Cardiovascular: No: Chest Pain, Palpitations Gastrointestinal: Constipation; No: Nausea, Vomiting Musculoskeletal: back pain (Lumbar region R>L) Objective Exam General Appearance: No Apparent Distress, Obese HEENT: PERRL/EOMI, Moist Mucous Membranes Respiratory: Lungs Clear, Normal Breath Sounds, No Accessory Muscle Use, No Respiratory Distress Cardiovascular: Regular Rate, Rhythm, No Murmur Gastrointestinal: normal bowel sounds, distended (mild ), tenderness (RUQ on deep palpation ) Extremity: Other (BL BKA ) Skin: Erythema (Diffusley across the inguinal region ), Other (Rt groin tender to palpation, improved since yesterday ) Assessment/Plan Assessment/Plan Assessment/Plan s/p I&D for Necrotizing Fasciitis of right groin POD 1 Sepsis- lactic down from 2.09 to 1.40 today uncontrolled DM Leukocytosis- down from 34.2 to 22.9 today COPD Tachycardia- resolved GERD Anemia- Hgb dropped from 15.7 to 13.2 today constipation Plan: Advance diet today Continue IV abx therpay, continue SSI to gain glucose control, pain control with IV pain medications, Blood and wound cultures pending, serial CBCs to monitor Hgb continue supplemental O2, continue MAT protocol IVF, keep shultz in place continue protonix therapy change packing today stool softeners PRN Supervisory-Addendum Brief Verification & Attestation Participated in pt care: history, MDM, physical Personally performed: exam, history, MDM, supervision of care Care discussed with: Medical Student Procedures: n/a Verification and Attestation of Medical Student E/M Service A medical student performed and documented this service. I then reviewed and verified all information documented by the medical student and made modifications to such information, when appropriate. I personally performed a physical exam, medical decision making and then discussed any differences between the notes and made revisions as necessary to create one note. Chato Townsend , 01/27/23 , 13:24 LALITHA CEDEÑO Jan 27, 2023 10:32 CHATO TOWNSEND DO Jan 27, 2023 13:25
[2023-01-27] MEDS ORDERED: IBUPROFEN TABLET 200 MG TAB PO PRN (11:30)
[2023-01-27] MEDS ORDERED: NON-FORMULARY MEDICATION 1 EA EA (Aspirin/Acetaminophen/Caffeine (Excedrin Migraine Caplet PO PRN (11:30)
[2023-01-27] MEDS ORDERED: NON-FORMULARY MEDICATION 1 EA EA (Dulaglutide (Trulicity) 4.5 MG) SQ SCH (11:30)
[2023-01-27] MEDS ORDERED: INSULIN LISPRO SQ SCH (12:00)
--- NOTE | 2023-01-27 14:02 | OPERATIVE REPORT ---
DATE OF SERVICE: 01/26/2023 PREOPERATIVE DIAGNOSIS: Necrotizing fasciitis, right inguinal region. POSTOPERATIVE DIAGNOSIS: Necrotizing fasciitis, right inguinal region. PROCEDURES: 1. Incision and drainage of right groin abscess with packing. 2. Debridement of subcutaneous fat, 11 x 5 x 6 cm. SURGEON: Dr. Ballesteros. WAIST CUTTER: REBECCA Valdez. ESTIMATED BLOOD LOSS: Less than 30 mL SPECIMENS: Necrotic tissue. ANESTHESIA: General endotracheal tube. POSTOPERATIVE CONDITION: Stable. INDICATIONS FOR PROCEDURE: The patient is a 57-year-old male who had pain and redness and fullness in the right groin. CT showed necrotizing fasciitis needed to get this opened up. FINDINGS: The patient had a small opening right at the level of the upper scrotum, but more into the inguinal skin, draining some purulent fluid. This was cultured. DESCRIPTION OF PROCEDURE: After informed consent was obtained, the patient was brought to the operating room and placed on the table in supine position. Legs were kind of opened up, saw a small hole right on the top of the scrotum, but often to the inguinal canal and skin. A culture of some of the purulent fluid coming out of there. I then opened this up with a #15 blade, carried down through skin into subcutaneous tissue, then deepened down to subcutaneous tissue with Bovie electrocautery, able to get into the area with more purulent fluid and necrotic tissue, started debriding this necrotic tissue, was in the subcutaneous fat. It measured about 11 cm long by about 5 cm wide x about 6 cm deep, debrided this amount of tissue, cut out all the necrotic tissue until back to good tissue. Copiously irrigated with normal saline and packed to 2 bottles of 1/2-inch iodoform packing. Area was then cleaned and dried, dressing placed. The patient tolerated the procedure. Sponge and needle count correct at the end of the case. Job ID: [id number] DocumentID: [id number] Dictated Date: 01/27/2023 13:31:24 Transportation Inspector Date: 01/27/2023 14:00:00 Dictated By: SEBAS BALLESTEROS DO
--- NOTE | 2023-01-27 14:02 | Physical Therapy Progress Note ---
Therapy Progress Note Pt just transferred to 4th floor. Pt declined to participate with PT eval this date. Nursing and Pt report that Pt was able to (I) don (B) prosthesis and perform bed<->chair transfer during move to 4th floor. PT will eval on 01/29/2023. Encouraged Pt to get OOB with nursing as tolerated; agrees. FELIZ SPARROW DPZander Jan 27, 2023 14:02
[2023-01-27] MEDS: inSUlin ASPART (NovoLOG) 1 UNIT/0.01 ML (CHARGE PER UNIT) SQ SCH ×2 (14:11→17:13)
[2023-01-27 16:17] VITALS: BP 95/65
[2023-01-27] MEDS ORDERED: INSULIN DEGLUDEC SQ SCH (19:00)
[2023-01-27 20:08] VITALS: BP 105/55
[2023-01-27] MEDS: RT--FLUTICASONE/SALMETEROL 232-14 (AIRDUO RespiCLICK) IH SCH (20:42)
[2023-01-27] MEDS ORDERED: NON-FORMULARY MEDICATION 1 EA EA (Budesonide/Formoterol Fumarate (Symbicort 160-4.5 Mcg In IH SCH (21:00)
[2023-01-27] MEDS ORDERED: NS (IVPB) 500 ML IV ONE (22:15)
[2023-01-27] MEDS ORDERED: morphine INJ 10 MG/ML 1ML (SYR OR VIAL) IV PRN (22:45)
--- NOTE | 2023-01-27 23:08 | Tele-ICU Consult ---
Progress Note 57 yo male admitted for severe sepsis, necrotizing fascitis R groin into scrotum. Pt s/p I&D right groin under general anesthesia. Pt extubated, is in ICU, resting. No complaints per bedside nurse; pt received pain med earlier with response to medication. Focused Exam Sepsis Stage: Severe Sepsis Possible Source: Skin/Soft Tissue Lactate Level 01/26/23 09:20: Lactic Acid Level 2.09*H 01/26/23 20:32: Lactic Acid Level 1.40 Height, Weight, BMI Height: 6'4.00" Weight: 369lbs. 14.4oz. [id number]; 49.51 BMI Method:Stated Time of Focused Exam: 11:50 Respiratory: No Accessory Muscle Use Cardiovascular: Tachycardia Skin: normal color Within 3hrs of presentation: Focus exam, Lactate level Results Results/Procedures Lab Laboratory Tests 01/26/23 09:20 01/27/23 04:05 Labs Laboratory Tests 01/27/23 04:05 Vital Signs Vitals Signs Source: Temporal, Heart Rate: 138, Respiratory Rate: 18, BP: 105/55, Pulse Oximetry: 96, Weight: 163.7 Meds/Labs/Orders Lab results: Laboratory Tests Test 01/27/23 04:05 01/27/23 10:42 01/27/23 16:21 01/27/23 20:35 Range/Units White Blood Count 22.9 H 4.3-11.0 10^3/uL Red Blood Count 4.57 4.30-5.52 10^6/uL Hemoglobin 13.2 L 13.3-17.7 g/dL Hematocrit 41 40-54 % Mean Corpuscular Volume 89 80-99 fL Mean Corpuscular Hemoglobin 29 25-34 pg Mean Corpuscular Hemoglobin Concent 32 32-36 g/dL Red Cell Distribution Width 12.9 10.0-14.5 % Platelet Count 135 130-400 10^3/uL Mean Platelet Volume 10.0 9.0-12.2 fL Immature Granulocyte % (Auto) 1 % Neutrophils (%) (Auto) 80 H 42-75 % Lymphocytes (%) (Auto) 9 L 12-44 % Monocytes (%) (Auto) 9 0-12 % Eosinophils (%) (Auto) 1 0-10 % Basophils (%) (Auto) 0 0-10 % Neutrophils # (Auto) 18.3 H 1.8-7.8 10^3/uL Lymphocytes # (Auto) 2.2 1.0-4.0 10^3/uL Monocytes # (Auto) 2.0 H 0.0-1.0 10^3/uL Eosinophils # (Auto) 0.2 0.0-0.3 10^3/uL Basophils # (Auto) 0.1 0.0-0.1 10^3/uL Immature Granulocyte # (Auto) 0.2 H 0.0-0.1 10^3/uL Sodium Level 136 135-145 MMOL/L Potassium Level 4.1 3.6-5.0 MMOL/L Chloride Level 103 98-107 MMOL/L Carbon Dioxide Level 22 21-32 MMOL/L Anion Gap 11 5-14 MMOL/L Blood Urea Nitrogen 21 H 7-18 MG/DL Creatinine 1.22 0.60-1.30 MG/DL Estimat Glomerular Filtration Rate 69 BUN/Creatinine Ratio 17 Glucose Level 143 H 70-105 MG/DL Calcium Level 8.2 L 8.5-10.1 MG/DL Phosphorus Level 2.8 2.3-4.7 MG/DL Magnesium Level 1.6 1.6-2.4 MG/DL Glucometer 125 H 124 H 171 H 70-110 MG/DL My orders: Orders - SHERRI QUIROGA MD Ns (Ivpb) (Sodium Chloride 0.9%) (01/27/23 22:15) Morphine Injection (Morphine Injection (01/27/23 22:45) Acetaminophen Tablet/Caplet (Tylenol T (01/28/23 01:00) Assessment/Plan Assessment/Plan Admission Status: Inpatient Order (span 2 midnights) Reason for Inpatient Admission: 57 yo male admitted with sepsis, now s/p I and D right groin Sepsis, on vanco, Zosyn, check nasal MRSA, continue saline hydration Tachycardia, ordered saline bolus x one DVT prophy lovenox SHERRI QUIROGA MD Jan 27, 2023 23:08
[2023-01-27] MEDS ORDERED: meTOprolol 5 MG/5 ML (LOPRESSOR) VIAL IV ONE (23:30)
[2023-01-28] MEDS: NS IV 1000 ML 1,000 ML IV SCH ×2 (00:10→11:34)
--- NOTE | 2023-01-28 00:16 | Tele-ICU Progress Note ---
Progress Note Pt w HR up to 140s. I spoke w bedside nurse. EKG suggestive of atrial flutter. I ordered lopressor IV x one. HR slowed to about 124, some P waves seen. I ordered cardizem drip for pt and am troponin and advised nurse to get cardiology consult Focused Exam Lactate Level 01/26/23 09:20: Lactic Acid Level 2.09*H 01/26/23 20:32: Lactic Acid Level 1.40 Height, Weight, BMI Height: 6'4.00" Weight: 369lbs. 14.4oz. 167.438992gd; 49.51 BMI Method:Stated Time of Focused Exam: 11:50 Vital Signs Vitals Signs Source: Temporal, Heart Rate: 138, Respiratory Rate: 18, BP: 105/55, Pulse Oximetry: 96, Weight: 163.7 SHERRI QUIROGA MD Jan 28, 2023 00:16
[2023-01-28] MEDS ORDERED: dilTIAZem DRIP PRE-MIX 125 ML IV ONE (00:17)
[2023-01-28] MEDS: dilTIAZem DRIP PRE-MIX 125 ML IV SCH ×2 (00:29→12:47)
[2023-01-28] MEDS: PIPERACILLIN SODIUM/TAZOBACTAM 4.5 GM in NS (IVPB) 100 ML IV SCH ×3 (00:29→18:16)
[2023-01-28] MEDS: ONDANSETRON 4 MG/2 ML (SDV) Z0FRAN IVP PRN ×3 (00:44→13:48)
[2023-01-28] MEDS ORDERED: ACETAMINOPHEN 325 MG TABLET PO PRN (01:00)
[2023-01-28 04:46] LABS: BASOPHILS # (AUTO) 0.1 10^3/uL (0.0-0.1); BASOPHILS % (AUTO) 1 % (0-10); EOSINOPHILS # (AUTO) 0.2 10^3/uL (0.0-0.3); EOSINOPHILS % (AUTO) 2 % (0-10); HEMATOCRIT 41 % (40-54); HEMOGLOBIN 13.1 g/dL (13.3-17.7); LYMPHOCYTES # (AUTO) 1.6 10^3/uL (1.0-4.0); LYMPHOCYTES % (AUTO) 11 % (12-44); MEAN CORPUSCULAR HEMOGLOBIN 29 pg (25-34); MEAN CORPUSCULAR HGB CONC 32 g/dL (32-36); MEAN CORPUSCULAR VOLUME 89 fL (80-99); MEAN PLATELET VOLUME 9.8 fL (9.0-12.2); MONOCYTES # (AUTO) 1.3 10^3/uL (0.0-1.0); MONOCYTES % (AUTO) 9 % (0-12); NEUTROPHILS # (AUTO) 11.7 10^3/uL (1.8-7.8); NEUTROPHILS % (AUTO) 78 % (42-75); PLATELET COUNT 142 10^3/uL (130-400); WHITE BLOOD COUNT 15.1 10^3/uL (4.3-11.0)
[2023-01-28 05:02] LABS: ALBUMIN 2.7 GM/DL (3.2-4.5); CHLORIDE 107 MMOL/L (98-107); POTASSIUM 3.9 MMOL/L (3.6-5.0); SODIUM 137 MMOL/L (135-145)
[2023-01-28 05:03] LABS: CALCIUM 8.1 MG/DL (8.5-10.1)
[2023-01-28 05:05] LABS: GLUCOSE 162 MG/DL (70-105)
[2023-01-28 05:06] LABS: CARBON DIOXIDE 20 MMOL/L (21-32)
[2023-01-28 05:08] LABS: ALKALINE PHOSPHATASE 113 U/L (40-136); CREATININE SERUM 0.87 MG/DL (0.60-1.30); GFR ESTIMATED 101
[2023-01-28 05:09] LABS: BUN/CREATININE RATIO 17
[2023-01-28 05:11] LABS: ALANINE AMINOTRANSFERASE 15 U/L (0-55)
[2023-01-28 05:12] LABS: MAGNESIUM 1.8 MG/DL (1.6-2.4)
[2023-01-28] MEDS: HYDROcodone/APAP 5 MG/325 MG (LORTAB) TAB PO PRN (06:14)
[2023-01-28] MEDS: RT--FLUTICASONE/SALMETEROL 232-14 (AIRDUO RespiCLICK) IH SCH ×2 (06:38→20:46)
--- NOTE | 2023-01-28 07:37 | Progress Note - Hospitalist ---
Subjective HPI/CC On Admission Date Seen by Provider: Jan 28, 2023 Time Seen by Provider: 11:00 CC: Necrotizing fasciitis HPI: This is a 57[facility]WM clinic patient of [facility] who has a h/o DM and bilateral amputations who presents to the ER with right groin pain and was found to have findings c/w necrotizing fasciitis and is planing on undergoing incision and drainage by Dr Ballesteros this afternoon. Patient is high risk for complications so he will be admitted to ICU and closely monitored. He reports he began having pain and redness several days ago in his right groin and it worsened the past 24 hours. No drainage. Subjective/Events-last exam Had episode of new atrial fib with RVR last night requiring move to ICU Pain about the same Pneumonitis suspected on CXR Checked meds and labs Appreciate Cardiology Review of Systems General: Fatigue, Malaise Focused Exam Lactate Level 01/26/23 09:20: Lactic Acid Level 2.09*H 01/26/23 20:32: Lactic Acid Level 1.40 Time of Focused Exam: 11:50 Objective Exam Vital Signs Vital Signs Date Time Temp Pulse Resp B/P (MAP) Pulse Ox O2 Delivery O2 Flow Rate FiO2 01/28/23 13:00 92 01/28/23 13:00 26 119/77 (98) 96 Nasal Cannula 2.00 01/28/23 11:56 36.3 Capillary Refill : Less Than 3 Seconds General Appearance: No Apparent Distress, WD/WN, Chronically ill, Obese Respiratory: Lungs Clear, Normal Breath Sounds, Decreased Breath Sounds Cardiovascular: Irregularly Irregular Neurologic/Psychiatric: Alert, Oriented x3, No Motor/Sensory Deficits, Normal Mood/Affect Results/Procedures Lab Laboratory Tests 01/28/23 04:30 Patient resulted labs reviewed. 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 (2) Peripheral vascular disease (3) IDDM (insulin dependent diabetes mellitus) (4) Chronic pain (5) Hypertension (6) Hyperlipidemia (7) BMI 40.0-44.9, adult (8) DVT prophylaxis (9) Debility (10) Tobacco use (11) Marijuana use (12) Presumed JORGE (13) New onset AF RVR Plan: IV abx AF management Pain control Diagnosis/Problems Diagnosis/Problems (1) Necrotizing fasciitis Status: Acute (2) Peripheral vascular disease Status: Chronic (3) IDDM (insulin dependent diabetes mellitus) Status: Chronic (4) Chronic pain Status: Chronic (5) Hyperlipidemia Status: Chronic (6) Hypertension Status: Chronic (7) Tobacco abuse Status: Chronic (8) Debility Status: Chronic SARAHY SANTANA DO Jan 28, 2023 07:37
[2023-01-28] MEDS ORDERED: TROUGH ORDER-PHARMACY XX ONE (08:00)
[2023-01-28] MEDS: SENNA W/DOCUSATE (SENOKOT S) TABLET PO SCH ×2 (09:00→19:45)
[2023-01-28] MEDS: inSUlin ASPART (NovoLOG) 1 UNIT/0.01 ML (CHARGE PER UNIT) SQ SCH ×3 (09:00→17:30)
[2023-01-28] MEDS: ENOXAPARIN 40 MG/0.4 ML (LOVENOX) SYR SC SCH (09:13)
[2023-01-28] MEDS: PANTOPRAZOLE 40 MG (PROTONIX) VIAL IV SCH (09:13)
[2023-01-28] MEDS: polyethylene glycoL POWDER 17 GM (MIRALAX) PACK PO SCH ×2 (09:15→19:45)
[2023-01-28] MEDS: VANCOMYCIN 1,750 MG/NS 500 ML IVPB IV SCH ×4 (09:21→20:39)
--- NOTE | 2023-01-28 10:22 | Tele-ICU Progress Note ---
Progress Note video rounds completed 57 y/o male with DM and PVD s/p bilateral LE amputations Presents with sepsis and groin abscess and or necrotizing fasciitis On zosyn and van Surgery on consult and plan for OR for debridement Time spent on eval 20 minutes Focused Exam Lactate Level 01/26/23 09:20: Lactic Acid Level 2.09*H 01/26/23 20:32: Lactic Acid Level 1.40 Height, Weight, BMI Height: 6'4.00" Weight: 369lbs. 14.4oz. 167.034327ly; 49.51 BMI Method:Stated Time of Focused Exam: 11:50 Labs Laboratory Tests 01/28/23 04:30 Results Results/Procedures Lab Laboratory Tests 01/27/23 04:05 01/28/23 04:30 Results Labs Labs Laboratory Tests 01/27/23 10:42: Glucometer 125H 01/27/23 16:21: Glucometer 124H 01/27/23 20:35: Glucometer 171H 01/28/23 04:30: White Blood Count 15.1H, Red Blood Count 4.58, Hemoglobin 13.1L, Hematocrit 41, Mean Corpuscular Volume 89, Mean Corpuscular Hemoglobin 29, Mean Corpuscular Hemoglobin Concent 32, Red Cell Distribution Width 12.8, Platelet Count 142, Mean Platelet Volume 9.8, Immature Granulocyte % (Auto) 1, Neutrophils (%) (Auto) 78H, Lymphocytes (%) (Auto) 11L, Monocytes (%) (Auto) 9, Eosinophils (%) (Auto) 2, Basophils (%) (Auto) 1, Neutrophils # (Auto) 11.7H, Lymphocytes # (Auto) 1.6, Monocytes # (Auto) 1.3H, Eosinophils # (Auto) 0.2, Basophils # (Auto) 0.1, Immature Granulocyte # (Auto) 0.2H, Sodium Level 137, Potassium Level 3.9, Chloride Level 107, Carbon Dioxide Level 20L, Anion Gap 10, Blood Urea Nitrogen 15, Creatinine 0.87, Estimat Glomerular Filtration Rate 101, BUN/Creatinine Ratio 17, Glucose Level 162H, Calcium Level 8.1L, Corrected Calcium 9.1, Magnesium Level 1.8, Total Bilirubin 1.0, Aspartate Amino Transf (AST/SGOT) 15, Alanine Aminotransferase (ALT/SGPT) 15, Alkaline Phosphatase 113, Troponin I < 0.028, Total Protein 6.0L, Albumin 2.7L 01/28/23 08:16: Vancomycin Level Trough 14.7 Microbiology 01/26/23 Gram Stain - Final, Resulted 01/26/23 Anaerobic Culture, Resulted Pending 01/26/23 Surgical Culture - Preliminary, Resulted No growth 01/26/23 MRSA Screen - Final, Complete MRSA not isolated 01/26/23 Urine Culture - Final, Complete NO GROWTH 01/26/23 Blood Culture - Preliminary, Resulted No growth LIAN LEMONS MD Jan 28, 2023 10:22
--- NOTE | 2023-01-28 10:40 | Progress Note - Surgery ---
LALITHA CEDEÑO 01/28/23 1040: Subjective Date Seen by a Provider: Jan 28, 2023 Time Seen by a Provider: 10:34 Subjective/Events-last exam 57 M s/p rt inguinal I&D secondary to necrotizing fasciitis POD 2 returned to the ICU last night due to abnormal vitals or hypotension and tachycardia. Found a. flutter om EKG. Pt has extensive cardiac history. Cardiology has been consulted and plans to see pt later today. Pt reports he continues to have pain in rt inguinal region rated 7/10 and described as a dull ache while resting. Pain increased with movement of Rt LE. States he has been nauseated all morning with multiple bouts of emesis. Continues to have reflux symptoms. Pt started coughing this morning and produced blood tinged sputum. Has not had BM since last Sunday but continues to pass flatus. Denies any CP, SOB,numbness, or urinary complaints. Urine culture showed no growth Review of Systems General: Night Sweats; No Appetite HEENT: Head Aches; No Sinus Congestion Pulmonary: Cough, Other (hemoptysis ) Cardiovascular: No: Chest Pain, Lt Headedness Gastrointestinal: Nausea, Vomiting Genitourinary: No Dysuria, No Frequency Musculoskeletal: No: back pain, leg pain Neurological: No: Change in speech, Confusion Focused Exam Lactate Level 01/26/23 09:20: Lactic Acid Level 2.09*H 01/26/23 20:32: Lactic Acid Level 1.40 Time of Focused Exam: 11:50 Objective Exam Vital Signs Date Time Temp Pulse Resp B/P (MAP) Pulse Ox O2 Delivery O2 Flow Rate FiO2 01/28/23 10:00 79 18 124/109 (123) 96 Nasal Cannula 2.00 01/28/23 09:00 68 12 107/67 (85) 95 Nasal Cannula 2.00 01/28/23 08:00 78 15 115/67 (75) 95 Nasal Cannula 2.00 01/28/23 07:56 36.5 01/28/23 07:00 83 01/28/23 07:00 80 107/68 (81) 95 Nasal Cannula 2.00 01/28/23 06:38 92 Nasal Cannula 2.00 01/28/23 06:00 83 108/64 (79) 94 Nasal Cannula 2.00 01/28/23 05:00 87 9 110/64 (79) 93 Nasal Cannula 2.00 01/28/23 04:32 36.0 01/28/23 04:09 99 Nasal Cannula 2.00 01/28/23 04:00 99 99/55 (70) 94 Nasal Cannula 2.00 01/28/23 03:00 102 13 125/94 (104) 93 Nasal Cannula 2.00 01/28/23 01:00 98 14 108/50 (69) 93 Nasal Cannula 2.00 01/28/23 01:00 124 01/28/23 00:29 129 122/69 01/28/23 00:00 146 108/73 (85) 96 Nasal Cannula 2.00 01/27/23 23:59 99 Nasal Cannula 2.00 01/27/23 23:00 138 146/86 (106) 94 Nasal Cannula 2.00 01/27/23 22:00 130 15 146/80 (102) 95 Nasal Cannula 2.00 01/27/23 21:00 96 Nasal Cannula 2.00 01/27/23 21:00 138 01/27/23 21:00 131/62 (85) Nasal Cannula 2.00 01/27/23 20:43 96 Nasal Cannula 1.00 01/27/23 20:15 95 Nasal Cannula 2.00 01/27/23 20:08 36.6 118 18 105/55 (72) 97 Nasal Cannula 2.00 01/27/23 16:17 36.4 103 18 95/65 (75) 95 Nasal Cannula 1.00 01/27/23 13:21 36.6 94 20 127/67 (87) 94 Nasal Cannula 1.00 01/27/23 12:00 76 12 130/68 (88) 95 Nasal Cannula 2.00 01/27/23 12:00 97 Nasal Cannula 2.00 01/27/23 11:59 36.4 01/27/23 11:00 74 24 118/63 (84) 92 Nasal Cannula 2.00 I & O 01/28/23 07:00 Intake Total 4487.5 ml Output Total 2920 ml Balance 1567.5 ml Capillary Refill : Less Than 3 Seconds General Appearance: No Apparent Distress, WD/WN, Chronically ill, Obese HEENT: PERRL/EOMI, Moist Mucous Membranes Neck: Non Tender; No Lymphadenopathy (L), No Lymphadenopathy (R) Respiratory: Lungs Clear, Normal Breath Sounds, No Accessory Muscle Use, No Respiratory Distress Cardiovascular: No Murmur, Other (a flutter ) Peripheral Pulses: 3+ Radial Pulses (R), 3+ Radial Pulses (L) Gastrointestinal: normal bowel sounds, distended (mild ), tenderness (RUQ on deep palpation ) Extremity: Non Tender, Other (BL BKA) Neurologic/Psychiatric: Alert, Oriented x3, Normal Mood/Affect Skin: Normal Color, Warm/Dry, Erythema (Diffusley across the inguinal region ), Other (Rt groin tender to palpation, improved since yesterday. Lt hand petichial rash( states he was itching it this morning and then rash appeared)) Lymphatic: Inguinal Node Tender (R) Results Lab Laboratory Tests 01/27/23 10:42: Glucometer 125H 01/27/23 16:21: Glucometer 124H 01/27/23 20:35: Glucometer 171H 01/28/23 04:30: White Blood Count 15.1H, Red Blood Count 4.58, Hemoglobin 13.1L, Hematocrit 41, Mean Corpuscular Volume 89, Mean Corpuscular Hemoglobin 29, Mean Corpuscular Hemoglobin Concent 32, Red Cell Distribution Width 12.8, Platelet Count 142, Mean Platelet Volume 9.8, Immature Granulocyte % (Auto) 1, Neutrophils (%) (Auto) 78H, Lymphocytes (%) (Auto) 11L, Monocytes (%) (Auto) 9, Eosinophils (%) (Auto) 2, Basophils (%) (Auto) 1, Neutrophils # (Auto) 11.7H, Lymphocytes # (Auto) 1.6, Monocytes # (Auto) 1.3H, Eosinophils # (Auto) 0.2, Basophils # (Auto) 0.1, Immature Granulocyte # (Auto) 0.2H, Sodium Level 137, Potassium Level 3.9, Chloride Level 107, Carbon Dioxide Level 20L, Anion Gap 10, Blood Urea Nitrogen 15, Creatinine 0.87, Estimat Glomerular Filtration Rate 101, BUN/Creatinine Ratio 17, Glucose Level 162H, Calcium Level 8.1L, Corrected Calcium 9.1, Magnesium Level 1.8, Total Bilirubin 1.0, Aspartate Amino Transf (AST/SGOT) 15, Alanine Aminotransferase (ALT/SGPT) 15, Alkaline Phosphatase 113, Troponin I < 0.028, Total Protein 6.0L, Albumin 2.7L 01/28/23 08:16: Vancomycin Level Trough 14.7 Microbiology 01/26/23 Gram Stain - Final, Resulted 01/26/23 Anaerobic Culture, Resulted Pending 01/26/23 Surgical Culture - Preliminary, Resulted No growth 01/26/23 MRSA Screen - Final, Complete MRSA not isolated 01/26/23 Urine Culture - Final, Complete NO GROWTH 01/26/23 Blood Culture - Preliminary, Resulted No growth Assessment/Plan Assessment/Plan Assessment/Plan s/p I&D for Necrotizing Fasciitis of right groin POD 1 uncontrolled DM Leukocytosis- down from 22.9 to 15.1 today COPD Tachycardia- resolved A. Flutter CAD GERD Anemia- Hgb stable at 13.2 constipation sepsis pneumonitis- most likely aspiration Plan: continue diabetic diet Continue IV abx therpay, continue SSI to gain glucose control, pain control with IV pain medications, Blood and wound cultures pending, serial CBCs to monitor Hgb continue supplemental O2, continue MAT and Sepsis protocol IVF, keep shultz in place continue protonix therapy change wound packing today stool softeners PRN appreciate cardiology consult, continuos cardiac monitoring, continue Cardizem drip for rate control CHATO TOWNSEND DO 01/28/23 1216: Subjective Time Seen by a Provider: 11:24 Subjective/Events-last exam Pt seen and examined, events of last night noted. He does not appear to be in any distress. His pain in right inguinal region is mostly controlled. Review of Systems General: Night Sweats HEENT: Head Aches; No Sinus Congestion Pulmonary: Cough, Other (hemoptysis ) Cardiovascular: No: Chest Pain, Lt Headedness Gastrointestinal: Nausea, Vomiting Genitourinary: No Dysuria, No Frequency Neurological: No: Confusion Objective Exam General Appearance: No Apparent Distress, Chronically ill, Obese (morbidly) HEENT: Moist Mucous Membranes Respiratory: Lungs Clear (??crackles), Normal Breath Sounds, No Accessory Muscle Use, No Respiratory Distress Cardiovascular: No Murmur, Other (atrial flutter ) Gastrointestinal: normal bowel sounds, distended (mild, probably normal body habitus), tenderness (RUQ on deep palpation ) Extremity: Other (BL BKA) Neurologic/Psychiatric: Alert, Oriented x3, Normal Mood/Affect Skin: Erythema (Diffusley across the inguinal region ), Other (Rt groin packing removed, no necrotic tissue) Assessment/Plan Assessment/Plan Assessment/Plan Atrial Flutter - on Cardizem drip and Cardiology coming to consult today Pneumonitis- seen on CXR, most likely aspiration and he will need Speech eval tomorrow S/P I&D for Necrotizing Fasciitis of right groin POD 2 uncontrolled DM Leukocytosis- improved, from 22.9 to 15.1 today COPD CAD GERD Plan: continue diabetic diet Continue IV abx therpay, continue SSI to gain glucose control, pain control with IV pain medications, Blood and wound cultures pending, serial CBCs to monitor Hgb continue supplemental O2, continue MAT and Sepsis protocol IVF, keep shultz in place continue protonix therapy change wound packing today stool softeners PRN appreciate cardiology consult, continuos cardiac monitoring, continue Cardizem drip for rate control Supervisory-Addendum Brief Verification & Attestation Participated in pt care: history, MDM, physical Personally performed: exam, history, MDM, supervision of care Care discussed with: Medical Student Procedures: n/a Verification and Attestation of Medical Student E/M Service A medical student performed and documented this service. I then reviewed and verified all information documented by the medical student and made modifications to such information, when appropriate. I personally performed a physical exam, medical decision making and then discussed any differences between the notes and made revisions as necessary to create one note. Chato Townsend , 01/28/23 , 12:16 LALITHA CEDEÑO Jan 28, 2023 10:40 CHATO TOWNSEND DO Jan 28, 2023 12:16
[2023-01-28] MEDS: morphine INJ 4 MG/ML 1 ML (VIAL/SYRINGE) IVP PRN ×3 (11:34→18:16)
[2023-01-28] MEDS ORDERED: PROMETHAZINE INJ 25 MG/ML (PHENERGAN) AMP IM PRN (11:45)
[2023-01-28] MEDS ORDERED: METOCLOPRAMIDE INJ 10 MG/2 ML (REGLAN) IVP PRN (11:45)
[2023-01-28 12:31] LABS: FREE T4 (FREE THYROXINE) 0.98 NG/DL (0.70-1.48)
--- NOTE | 2023-01-28 12:35 | CONSULTATION REPORT ---
DATE OF SERVICE: 01/28/2023 CHIEF COMPLAINT: Atrial fibrillation. HISTORY OF PRESENT ILLNESS: The patient is a 57-year-old gentleman with multiple medical problems including DNR status, peripheral vascular disease, status post bilateral BKA, hypertension, hyperlipidemia, CAD, GERD, diabetes, recurrent perineal infections, depression and anxiety, who presents for evaluation of right-sided groin pain and poor urine output. He presented to our facility on 01/26/2023 with complaints of poor urine output, right-sided groin pain and febrile. He had an abdominal pelvic CT, which was performed and demonstrated concerns surrounding necrotizing fasciitis. In that setting, General Surgery was consulted and he underwent irrigation and debridement of a right groin abscess with removal of subcutaneous fat 11 x 5 x 6 cm. He was subsequently transferred to the floor. Overnight, he developed atrial fib fibrillation/atrial flutter with heart rates up to the 140s. He was transferred to the ICU in that setting. Cardiology was consulted to aid in management. He was given metoprolol 5 mg IV x1 and started on a diltiazem drip with improvement in his heart rates to the 70s to 100s. Today, he reports no significant chest discomfort. No presyncope, syncope. No PND, no orthopnea, no shortness of breath. He states from a cardiac standpoint, he appears to be doing reasonably well. REVIEW OF SYSTEMS: All systems were reviewed and are negative except for what has been described in HPI. PAST MEDICAL HISTORY: Peripheral vascular disease, status post bilateral BKAs, hypertension, hyperlipidemia, CAD, GERD, diabetes, recurrent perineal infections, depression and anxiety and DNR. HOSPITAL MEDICATIONS: Hospital medications currently include detemir 20 units subQ daily, sliding scale insulin with aspart, diltiazem drip at 10 mg per hour, AirDuo, Symbicort, Trulicity 4.5 mg q. week, MiraLax 17 grams p.o. b.i.d., Lovenox 40 mg subcutaneous b.i.d., vancomycin 1.75 mg IV b.i.d., Protonix 40 mg IV daily and Zosyn. ALLERGIES: LYRICA AND METFORMIN. SOCIAL HISTORY: He used to smoke tobacco daily, has quit over the past 3 weeks, has smoked up to 3 packs per day since his teenage years. Illicit drug use, he reports marijuana use daily. Alcohol use, he denies. FAMILY HISTORY: Significant for father with fatal ND, brother with ND and CABG. Mother with diabetes. PHYSICAL EXAMINATION: VITAL SIGNS: T-max 36.5, heart rate 70s-146, respiratory rate 15-20, blood pressure 90-140/50-90, satting greater than 94% on 2 liters. GENERAL: He is actually in no acute distress. He is resting comfortably in the bed. NECK: Soft and supple. No cervical lymphadenopathy or thyromegaly. LUNGS: Demonstrate coarse and distant breath sounds bilaterally. CARDIAC: Heart is regular rate and rhythm. Distant heart sounds, normal S1, S2. No murmurs, gallops or rubs are appreciated. ABDOMEN: Obese, soft, nontender, nondistended, positive bowel sounds. EXTREMITIES: He is status post BKA in the bilateral lower extremities. No modesta cyanosis, clubbing or edema is noted. SKIN: No lesions, rashes or ecchymosis are noted. LABORATORY DATA: Significant for white blood cell count of 15.1, hematocrit of 41, platelets of 142. INR is 1.1. UA shows trace leukocyte esterase. WBCs of 5-10 and a few bacteria. Sodium 137, potassium 3.9, chloride 107, bicarbonate 20, BUN 15, creatinine 0.9, magnesium is 1.8. Troponin I is negative. Abdominal pelvic CT with necrotizing fasciitis of the right inguinal region and scrotum. Chest x-ray shows vascular congestion. EKG shows atrial fibrillation/atrial flutter with heart rates up to 144 with an incomplete left bundle-branch block. ASSESSMENT AND PLAN: The patient is a 57-year-old gentleman with the above-mentioned medical problems who presents for evaluation of right-sided groin pain, poor urine output, found to have necrotizing fasciitis complicated by atrial fibrillation versus atrial flutter with rapid ventricular response. The patient is doing reasonably well at this point in time, heart rates are controlled on diltiazem drip. I will continue the diltiazem drip at 10 for now. Blood pressures and heart rates are in the 60s-80s with blood pressures of 100-140. In addition, we have to touch base with General Surgery and they are okay with full dose anticoagulation. We will start him on Lovenox 160 mg subcutaneous b.i.d. for now and continue to monitor. We will obtain an echocardiogram tomorrow. We will check a TSH and a free T4 and ensure that his potassium is greater than 4 and magnesium is greater than 2, no other changes at this point in time. Thank you very much for allowing me to participate in his care. Job ID: [id number] DocumentID: [id number] Dictated Date: 01/28/2023 11:55:08 Financial Internship Date: 01/28/2023 12:32:00 Dictated By: VALE COLBY MD MTDD
[2023-01-28] MEDS: ENOXAPARIN 300 MG/3 ML (LOVENOX) MULTI-DOSE VIAL SQ SCH (18:18)
[2023-01-29] MEDS: PIPERACILLIN SODIUM/TAZOBACTAM 4.5 GM in NS (IVPB) 100 ML IV SCH ×3 (00:13→18:16)
[2023-01-29] MEDS: NS IV 1000 ML 1,000 ML IV SCH ×4 (00:13→21:39)
[2023-01-29] MEDS: dilTIAZem DRIP PRE-MIX 125 ML IV SCH (03:41)
[2023-01-29] MEDS: HYDROcodone/APAP 5 MG/325 MG (LORTAB) TAB PO PRN ×4 (03:50→21:40)
[2023-01-29 04:01] LABS: BASOPHILS # (AUTO) 0.1 10^3/uL (0.0-0.1); BASOPHILS % (AUTO) 0 % (0-10); EOSINOPHILS # (AUTO) 0.3 10^3/uL (0.0-0.3); EOSINOPHILS % (AUTO) 3 % (0-10); HEMATOCRIT 39 % (40-54); HEMOGLOBIN 12.5 g/dL (13.3-17.7); LYMPHOCYTES # (AUTO) 1.6 10^3/uL (1.0-4.0); LYMPHOCYTES % (AUTO) 14 % (12-44); MEAN CORPUSCULAR HEMOGLOBIN 29 pg (25-34); MEAN CORPUSCULAR HGB CONC 32 g/dL (32-36); MEAN CORPUSCULAR VOLUME 90 fL (80-99); MEAN PLATELET VOLUME 9.4 fL (9.0-12.2); MONOCYTES # (AUTO) 1.1 10^3/uL (0.0-1.0); MONOCYTES % (AUTO) 9 % (0-12); NEUTROPHILS # (AUTO) 8.3 10^3/uL (1.8-7.8); NEUTROPHILS % (AUTO) 73 % (42-75); PLATELET COUNT 153 10^3/uL (130-400); WHITE BLOOD COUNT 11.4 10^3/uL (4.3-11.0)
[2023-01-29 04:15] LABS: ALBUMIN 2.7 GM/DL (3.2-4.5); POTASSIUM 3.9 MMOL/L (3.6-5.0)
[2023-01-29 04:18] LABS: TOTAL PROTEIN 5.9 GM/DL (6.4-8.2)
[2023-01-29 04:19] LABS: BILIRUBIN,TOTAL 0.9 MG/DL (0.1-1.0)
[2023-01-29 04:21] LABS: CREATININE SERUM 0.86 MG/DL (0.60-1.30); PHOSPHORUS 2.6 MG/DL (2.3-4.7)
[2023-01-29 04:24] LABS: MAGNESIUM 1.9 MG/DL (1.6-2.4)
[2023-01-29] MEDS: ENOXAPARIN 300 MG/3 ML (LOVENOX) MULTI-DOSE VIAL SQ SCH ×2 (05:07→18:16)
[2023-01-29] MEDS: morphine INJ 4 MG/ML 1 ML (VIAL/SYRINGE) IVP PRN ×4 (05:56→21:40)
--- NOTE | 2023-01-29 07:43 | Physical Therapy Progress Note ---
Therapy Progress Note Received orders on [facility]th medical. Transferred to ICU, PT will require new orders MYA ARAIZA PT Jan 29, 2023 07:43
--- NOTE | 2023-01-29 07:50 | Progress Note - Surgery ---
LALITHA CEDEÑO 01/29/23 0750: Subjective Date Seen by a Provider: Jan 29, 2023 Time Seen by a Provider: 07:10 Subjective/Events-last exam 57 M s/p I&D of rt groin secondary to necrotizing fasciitis POD 3 reports improvement in pain today rating 4-5/10 located to rt groin with no radiation to the back. States pain still worsens with movement of LE. Pt denies having a BM for the past week but is continually passing flatus. Reports improvement with his cough and reflux symptoms. Wound covered by padded dressing with packing in place. Denies any fever, chills, n/v, CP, or SOB. Per cardio, pt continues to be on cardizem drip for a fibb but currently asymptomatic. Review of Systems General: No Chills, No Night Sweats HEENT: No Head Aches, No Sinus Congestion Pulmonary: No Dyspnea; Cough (improved from yesterday) Cardiovascular: No: Chest Pain, Palpitations Gastrointestinal: No: Nausea, Vomiting, Abdominal Pain Genitourinary: No Dysuria, No Frequency Musculoskeletal: No: back pain, hand pain Neurological: No: Change in speech, Confusion Focused Exam Lactate Level 01/26/23 09:20: Lactic Acid Level 2.09*H 01/26/23 20:32: Lactic Acid Level 1.40 Time of Focused Exam: 11:50 Objective Exam Vital Signs Date Time Temp Pulse Resp B/P (MAP) Pulse Ox O2 Delivery O2 Flow Rate FiO2 01/29/23 06:01 80 20 120/58 (78) 93 Nasal Cannula 2.00 01/29/23 05:00 68 11 127/60 (68) 95 Nasal Cannula 2.00 01/29/23 04:00 65 15 117/83 (105) 95 Nasal Cannula 2.00 01/29/23 04:00 98 Nasal Cannula 2.00 01/29/23 03:54 36.7 01/29/23 03:41 73 131/63 01/29/23 03:00 62 13 118/70 (86) 93 Nasal Cannula 2.00 01/29/23 02:00 78 14 111/93 (106) 94 Nasal Cannula 2.00 01/29/23 01:00 70 01/29/23 01:00 71 21 109/66 (78) 95 Nasal Cannula 2.00 01/29/23 00:13 35.6 01/29/23 00:00 71 9 105/60 (75) 93 Nasal Cannula 2.00 01/28/23 23:59 98 Nasal Cannula 2.00 01/28/23 23:00 58 13 105/62 (79) 92 Nasal Cannula 2.00 01/28/23 22:00 70 13 121/64 (91) 94 Nasal Cannula 2.00 01/28/23 21:00 65 14 107/64 (79) 94 Nasal Cannula 2.00 01/28/23 20:46 94 Nasal Cannula 2.00 01/28/23 20:00 98 Nasal Cannula 2.00 01/28/23 20:00 80 22 114/45 (78) 96 Nasal Cannula 2.00 01/28/23 19:30 36.2 01/28/23 19:00 66 01/28/23 19:00 72 11 106/57 (66) 96 Nasal Cannula 2.00 01/28/23 18:00 66 20 125/67 (90) 95 Nasal Cannula 2.00 01/28/23 17:00 80 15 114/64 (77) 97 Nasal Cannula 2.00 01/28/23 16:00 84 33 122/91 (105) 97 Nasal Cannula 2.00 01/28/23 15:45 36.1 01/28/23 15:00 80 17 107/53 (67) 92 Nasal Cannula 2.00 01/28/23 14:00 81 11 151/72 (87) 93 Nasal Cannula 2.00 01/28/23 13:00 92 01/28/23 13:00 82 26 119/77 (98) 96 Nasal Cannula 2.00 01/28/23 12:47 81 121/67 01/28/23 12:00 89 10 133/82 (99) 96 Nasal Cannula 2.00 01/28/23 11:56 36.3 01/28/23 11:00 82 21 122/82 (95) 93 Nasal Cannula 2.00 01/28/23 10:00 79 18 124/109 (123) 96 Nasal Cannula 2.00 01/28/23 09:00 68 12 107/67 (85) 95 Nasal Cannula 2.00 01/28/23 08:00 97 Nasal Cannula 2.00 01/28/23 08:00 78 15 115/67 (75) 95 Nasal Cannula 2.00 01/28/23 07:56 36.5 I & O 01/29/23 07:00 Intake Total 5052.0 ml Output Total 2325 ml Balance 2727.0 ml Capillary Refill : Less Than 3 Seconds General Appearance: No Apparent Distress, WD/WN, Chronically ill, Obese HEENT: PERRL/EOMI, Moist Mucous Membranes Neck: Non Tender; No Lymphadenopathy (L), No Lymphadenopathy (R) Respiratory: Lungs Clear, Normal Breath Sounds, No Accessory Muscle Use, No Respiratory Distress Cardiovascular: Regular Rate, Rhythm, No Murmur, Other (not in a fibb during examination ) Peripheral Pulses: 3+ Radial Pulses (R), 3+ Radial Pulses (L) Gastrointestinal: normal bowel sounds, non tender, distended (mild, probably normal body habitus) Extremity: Other (BL BKA) Neurologic/Psychiatric: Alert, Oriented x3, Normal Mood/Affect Skin: Normal Color, Warm/Dry, Erythema (Diffusley across the inguinal region, improved since yesterday ), Other (peticheal rash on lt hand has improved ) Lymphatic: Inguinal Node Tender (R) Results Lab Laboratory Tests 01/28/23 08:16: Vancomycin Level Trough 14.7 01/28/23 10:42: Glucometer 152H 01/28/23 15:49: Glucometer 120H 01/28/23 20:24: Glucometer 130H 01/29/23 03:45: White Blood Count 11.4H, Red Blood Count 4.35, Hemoglobin 12.5L, Hematocrit 39L, Mean Corpuscular Volume 90, Mean Corpuscular Hemoglobin 29, Mean Corpuscular Hemoglobin Concent 32, Red Cell Distribution Width 12.8, Platelet Count 153, Mean Platelet Volume 9.4, Immature Granulocyte % (Auto) 1, Neutrophils (%) (Auto) 73, Lymphocytes (%) (Auto) 14, Monocytes (%) (Auto) 9, Eosinophils (%) (Auto) 3, Basophils (%) (Auto) 0, Neutrophils # (Auto) 8.3H, Lymphocytes # (Auto) 1.6, Monocytes # (Auto) 1.1H, Eosinophils # (Auto) 0.3, Basophils # (Auto) 0.1, Immature Granulocyte # (Auto) 0.1, Sodium Level 137, Potassium Level 3.9, Chloride Level 106, Carbon Dioxide Level 22, Anion Gap 9, Blood Urea Nitrogen 12, Creatinine 0.86, Estimat Glomerular Filtration Rate 101, BUN/Creatinine Ratio 14, Glucose Level 122H, Calcium Level 8.0L, Corrected Calcium 9.0, Phosphorus Level 2.6, Magnesium Level 1.9, Total Bilirubin 0.9, Aspartate Amino Transf (AST/SGOT) 12, Alanine Aminotransferase (ALT/SGPT) 13, Alkaline Phosphatase 99, Total Protein 5.9L, Albumin 2.7L Microbiology 01/26/23 Gram Stain - Final, Resulted 01/26/23 Anaerobic Culture, Resulted Pending 01/26/23 Surgical Culture - Preliminary, Resulted Corynebactoerium aurimucosum Normal skin olman No Susceptibility Performed 01/26/23 MRSA Screen - Final, Complete MRSA not isolated 01/26/23 Urine Culture - Final, Complete NO GROWTH 01/26/23 Blood Culture - Preliminary, Resulted No growth Assessment/Plan Assessment/Plan Assessment/Plan Atrial Flutter - on Cardizem drip Pneumonitis- seen on CXR, most likely aspiration and he will need Speech today S/P I&D for Necrotizing Fasciitis of right groin POD 3 uncontrolled DM Leukocytosis- improved, from 15.1 to 11.4 today COPD CAD GERD-symptoms improved Plan: continue diabetic diet Continue IV abx therpay, continue SSI to gain glucose control, pain control w ith IV pain medications,serial CBCs to monitor Hgb continue supplemental O2, continue MAT and Sepsis protocol IVF, keep shultz in place continue protonix therapy continue regular dressing changes stool softeners PRN start ICS continue anti-coag therapy continue cardizem drip with possible conversion to PO CHATO TOWNSEND DO 01/29/23 1343: Subjective Time Seen by a Provider: 12:05 Subjective/Events-last exam Pt seen and examined, no new complaints. Review of Systems General: No Chills, No Night Sweats Pulmonary: No Dyspnea; Cough (improved from yesterday) Cardiovascular: No: Chest Pain, Palpitations Gastrointestinal: No: Nausea, Vomiting, Abdominal Pain Objective Exam General Appearance: No Apparent Distress, Chronically ill, Obese HEENT: Moist Mucous Membranes Respiratory: Lungs Clear, Normal Breath Sounds, No Accessory Muscle Use Cardiovascular: Regular Rate, Rhythm, No Murmur, Other (pulse felt and sounded like regular rhythm) Gastrointestinal: distended (mild, probably normal body habitus) Extremity: Other (BL BKA) Neurologic/Psychiatric: Alert, Oriented x3, Normal Mood/Affect Skin: Other (peticheal rash on lt hand has improved ) Assessment/Plan Assessment/Plan Assessment/Plan Atrial Flutter - on Cardizem drip. ???resolved Pneumonitis- seen on CXR, most likely aspiration and he will need Speech today S/P I&D for Necrotizing Fasciitis of right groin POD 3 uncontrolled DM Leukocytosis- improved, from 15.1 to 11.4 today COPD CAD GERD-symptoms improved Plan: I asked wound care to consult and assess for possible VAC placement or plan for dressing changes Continue IV abx therpay, continue SSI to gain glucose control, pain control with IV pain medications,serial CBCs to monitor Hgb continue supplemental O2, continue MAT and Sepsis protocol IVF, keep shultz in place continue protonix therapy continue regular dressing changes stool softeners PRN start IS continue anti-coag therapy continue cardizem drip with possible conversion to PO Supervisory-Addendum Brief Verification & Attestation Participated in pt care: history, MDM, physical Personally performed: exam, history, MDM, supervision of care Care discussed with: Medical Student Procedures: n/a Verification and Attestation of Medical Student E/M Service A medical student performed and documented this service. I then reviewed and verified all information documented by the medical student and made modifications to such information, when appropriate. I personally performed a physical exam, medical decision making and then discussed any differences between the notes and made revisions as necessary to create one note. Chato Townsend , 01/29/23 , 13:43 LALITHA CEDEÑO Jan 29, 2023 07:50 CHATO TOWNSEND DO Jan 29, 2023 13:43
[2023-01-29] MEDS: RT--FLUTICASONE/SALMETEROL 232-14 (AIRDUO RespiCLICK) IH SCH ×2 (08:11→19:56)
[2023-01-29] MEDS: polyethylene glycoL POWDER 17 GM (MIRALAX) PACK PO SCH ×2 (08:18→21:40)
[2023-01-29] MEDS: PANTOPRAZOLE 40 MG (PROTONIX) VIAL IV SCH (08:18)
[2023-01-29] MEDS: inSUlin ASPART (NovoLOG) 1 UNIT/0.01 ML (CHARGE PER UNIT) SQ SCH ×3 (08:19→17:39)
[2023-01-29] MEDS: SENNA W/DOCUSATE (SENOKOT S) TABLET PO SCH ×2 (08:19→21:40)
--- NOTE | 2023-01-29 10:18 | Cardiology Progress Note ---
Subjective Date Seen by Provider: Jan 29, 2023 Time Seen by Provider: 09:45 Subjective/Events-last exam NO acute events overngiht. pt doing well. HRs controlled. Still in AF. Focused Exam Lactate Level 01/26/23 20:32: Lactic Acid Level 1.40 Time of Focused Exam: 11:50 Objective-Cardiology Exam Last Set of Vital Signs Vital Signs 01/29/23 01/29/23 07:52 09:00 Temp 36.2 Pulse 76 Resp 25 B/P (MAP) 105/67 (80) Pulse Ox 96 O2 Delivery Nasal Cannula O2 Flow Rate 2.00 I&O Intake and Output 01/29/23 00:00 Intake Total 3910.0 ml Output Total 2675 ml Balance 1235.0 ml Intake Oral 1850 ml IV Total 2060.0 ml Output Urine Total 2675 ml Other physical findings GENERAL: He is actually in no acute distress. He is resting comfortably in the bed. NECK: Soft and supple. No cervical lymphadenopathy or thyromegaly. LUNGS: Demonstrate coarse and distant breath sounds bilaterally. no [place] wheezing, rales or rhonchi noted. CARDIAC: Heart is irreg, irreg, not tachycardic. Distant heart sounds, normal S1, S2. No murmurs, gallops or rubs are appreciated. ABDOMEN: Obese, soft, nontender, nondistended, positive bowel sounds. EXTREMITIES: He is status post BKA in the bilateral lower extremities. No modesta cyanosis, clubbing or edema is noted. SKIN: No lesions, rashes or ecchymosis are noted. Results Lab Laboratory Tests 01/29/23 03:45 A/P-Cardiology Assessment/Plan 57M with the above-mentioned medical problems who presents for evaluation of right-sided groin pain, poor urine output, found to have necrotizing fasciitis complicated by atrial fibrillation versus atrial flutter versus with rapid ventricular response. ## Necrotizing fascitis s/p Irrigation and debridement. - as per general surgery ## PVD -s/p bilateral BKA ## DM - plan per hospitalist - statin and arabella inhibitor when possible. ## AF with RVR; HRs controlled. TSH and FT4 within normal limits - d/c diltiazem gtt and overlap with start of dilt 45mg po Q6H - cont with lovenox 1mg/kg bid; transition to oral agents once nearing discharge - f/u TTE - plan to transition to longer acting dilt in AM (3-14) - keep K>4, Mg > 2 VALE COLBY MD Jan 29, 2023 10:18
--- NOTE | 2023-01-29 11:25 | Tele-ICU Progress Note ---
Subjective Date Seen by a Provider: Jan 29, 2023 Time Seen by a Provider: 11:25 Subjective/Events-last exam (Tele-ICU Physician , Progress Note ) Service provided via interactive audio and video telecommunications E-CARE system to a patient admitted to ICU bed in [facility]. Patient is seen today due to persistent need of ICU care Available chart/ vitals / labs / Images reviewed Video assessment done using teleICU camera, rest of exam as per RN Discussed with RN Events overnight : Afebrile hemodynamically stable Respiratory - I/O = Drips: Pressors- no Hospital course:\\ (01/26) 57M Admitted for severe sepsis, necrotizing fascitis right groin into scrotum. s/p emergent I&D right groin with packing under general. (01/27) Readmit for MEWS of (4). New Atrial Flutter (RVR). A/P AF with RV - diltiazem gtt --> to po - AC lovenox full dose - as per cards Necrotizing fascitis s/p Irrigation and debridement. - as per general surgery - cont abx PVD -s/p bilateral BKA DM - ISS Nutrition - ? need speach assessment - was suspected asspiration as per notes D/c IVF if can take adequate po Lines : , (Central Line Necessity Reviewed) Hurtado: + OG: Nutrition: Analgesia: Anxiety/ delirium VTE Prophylaxis: manolo full Stress Ulcer Prophylaxis: Plans in collaboration with bedside consultants and IM MDs. Discussed with RN to reach out if any questions or concerns A total of 20 minutes of critical care time was devoted to this patient today, required to treat and/or prevent further deterioration of critical care condition ( as above ) . I am remotely monitoring this patient from another state. I am unable to do the bedside exam, and history/physical and pertinent information is taken from other notes in the computer and bedside staff. Sepsis Event Evaluation Height, Weight, BMI Height: 6'4.00" Weight: 369lbs. 14.4oz. 167.865534nt; 49.51 BMI Method:Stated Focused Exam Lactate Level 01/26/23 20:32: Lactic Acid Level 1.40 Time of Focused Exam: 11:50 Exam Exam Patient acknowledged, consented, and participated in this virtual visit which was conducted using real time audio/video Vital Signs Date Time Temp Pulse Resp B/P (MAP) Pulse Ox O2 Delivery O2 Flow Rate FiO2 01/29/23 10:00 65 14 132/79 (96) 95 Nasal Cannula 2.00 01/29/23 09:00 76 25 105/67 (80) 96 Nasal Cannula 2.00 01/29/23 08:25 Nasal Cannula 2.00 01/29/23 08:11 96 Nasal Cannula 2.00 01/29/23 08:00 75 22 115/89 (98) 95 Nasal Cannula 2.00 01/29/23 07:52 36.2 01/29/23 07:00 72 01/29/23 07:00 72 19 109/67 (81) 96 Nasal Cannula 2.00 01/29/23 06:01 80 20 120/58 (78) 93 Nasal Cannula 2.00 01/29/23 05:00 68 11 127/60 (68) 95 Nasal Cannula 2.00 01/29/23 04:00 65 15 117/83 (105) 95 Nasal Cannula 2.00 01/29/23 04:00 98 Nasal Cannula 2.00 01/29/23 03:54 36.7 01/29/23 03:41 73 131/63 01/29/23 03:00 62 13 118/70 (86) 93 Nasal Cannula 2.00 01/29/23 02:00 78 14 111/93 (106) 94 Nasal Cannula 2.00 01/29/23 01:00 70 01/29/23 01:00 71 21 109/66 (78) 95 Nasal Cannula 2.00 01/29/23 00:13 35.6 01/29/23 00:00 71 9 105/60 (75) 93 Nasal Cannula 2.00 01/28/23 23:59 98 Nasal Cannula 2.00 01/28/23 23:00 58 13 105/62 (79) 92 Nasal Cannula 2.00 01/28/23 22:00 70 13 121/64 (91) 94 Nasal Cannula 2.00 01/28/23 21:00 65 14 107/64 (79) 94 Nasal Cannula 2.00 01/28/23 20:46 94 Nasal Cannula 2.00 01/28/23 20:00 98 Nasal Cannula 2.00 01/28/23 20:00 80 22 114/45 (78) 96 Nasal Cannula 2.00 01/28/23 19:30 36.2 01/28/23 19:00 66 01/28/23 19:00 72 11 106/57 (66) 96 Nasal Cannula 2.00 01/28/23 18:00 66 20 125/67 (90) 95 Nasal Cannula 2.00 01/28/23 17:00 80 15 114/64 (77) 97 Nasal Cannula 2.00 01/28/23 16:00 84 33 122/91 (105) 97 Nasal Cannula 2.00 01/28/23 15:45 36.1 01/28/23 15:00 80 17 107/53 (67) 92 Nasal Cannula 2.00 01/28/23 14:00 81 11 151/72 (87) 93 Nasal Cannula 2.00 01/28/23 13:00 92 01/28/23 13:00 82 26 119/77 (98) 96 Nasal Cannula 2.00 01/28/23 12:47 81 121/67 01/28/23 12:00 89 10 133/82 (99) 96 Nasal Cannula 2.00 01/28/23 11:56 36.3 I & O 01/29/23 07:00 Intake Total 5052.0 ml Output Total 2325 ml Balance 2727.0 ml Height & Weight Height: 6'4.00" Weight: 369lbs. 14.4oz. 167.471066ya; 49.51 BMI Method:Stated General Appearance: No Apparent Distress, WD/WN, Chronically ill, Obese HEENT: PERRL/EOMI, Moist Mucous Membranes Neck: Non Tender; No Lymphadenopathy (L), No Lymphadenopathy (R) Respiratory: Lungs Clear, Normal Breath Sounds, No Accessory Muscle Use, No R espiratory Distress Cardiovascular: Regular Rate, Rhythm, No Murmur, Other (not in a fibb during examination ) Capillary Refill: Less Than 3 Seconds Peripheral Pulses: 3+ Radial Pulses (R), 3+ Radial Pulses (L) Gastrointestinal: normal bowel sounds, non tender, distended (mild, probably normal body habitus) Extremity: Other (BL BKA) Neurologic/Psychiatric: Alert, Oriented x3, Normal Mood/Affect Skin: Normal Color, Warm/Dry, Erythema (Diffusley across the inguinal region, improved since yesterday ), Other (peticheal rash on lt hand has improved ) Lymphatic: Inguinal Node Tender (R) Results Lab Laboratory Tests 01/28/23 04:30 3/13/23 03:45 Assessment/Plan Assessment/Plan 1 JUAN ESQUIVEL MD Jan 29, 2023 11:25
[2023-01-29] MEDS ORDERED: HYPOCHLOROUS ACID/NaCl (VASHE) 250 ML IR PRN (13:45)
--- NOTE | 2023-01-29 18:03 | Progress Note ---
Subjective Subjective/Events-last exam Patient feeling much better. Denies any chest pain or shortness of breath. Tolerating PO diet. Would like to get up and to wheelchair. Review of Systems Pulmonary: No Dyspnea, No Cough Cardiovascular: No: Chest Pain, Palpitations, Edema Gastrointestinal: No: Abdominal Pain, Diarrhea, Constipation Neurological: Weakness Focused Exam Lactate Level 01/26/23 20:32: Lactic Acid Level 1.40 Time of Focused Exam: 11:50 Objective Exam Last Set of Vital Signs Vital Signs Date Time Temp Pulse Resp B/P (MAP) Pulse Ox O2 Delivery O2 Flow Rate FiO2 01/29/23 17:00 97 19 106/83 (91) 97 Nasal Cannula 1.00 01/29/23 16:03 36.0 Capillary Refill : Less Than 3 Seconds I&O Intake and Output 01/29/23 00:00 Intake Total 3910.0 ml Output Total 2675 ml Balance 1235.0 ml Intake Oral 1850 ml IV Total 2060.0 ml Output Urine Total 2675 ml General: Alert, Oriented X3, No Acute Distress Lungs: Clear to Auscultation, Normal Air Movement Heart: Regular Rate, No Murmurs Abdomen: Normal Bowel Sounds, Soft, No Tenderness Extremities: Other (bilateral amputations) Neuro: Normal Speech, Cranial Nerves 3-12 NL Results/Procedures Lab Laboratory Tests 01/28/23 20:24: Glucometer 130H 01/29/23 03:45: White Blood Count 11.4H, Red Blood Count 4.35, Hemoglobin 12.5L, Hematocrit 39L, Mean Corpuscular Volume 90, Mean Corpuscular Hemoglobin 29, Mean Corpuscular Hemoglobin Concent 32, Red Cell Distribution Width 12.8, Platelet Count 153, Mean Platelet Volume 9.4, Immature Granulocyte % (Auto) 1, Neutrophils (%) (Auto) 73, Lymphocytes (%) (Auto) 14, Monocytes (%) (Auto) 9, Eosinophils (%) (Auto) 3, Basophils (%) (Auto) 0, Neutrophils # (Auto) 8.3H, Lymphocytes # (Auto) 1.6, Monocytes # (Auto) 1.1H, Eosinophils # (Auto) 0.3, Basophils # (Auto) 0.1, Immature Granulocyte # (Auto) 0.1, Sodium Level 137, Potassium Level 3.9, Chloride Level 106, Carbon Dioxide Level 22, Anion Gap 9, Blood Urea Nitrogen 12, Creatinine 0.86, Estimat Glomerular Filtration Rate 101, B UN/Creatinine Ratio 14, Glucose Level 122H, Calcium Level 8.0L, Corrected Calcium 9.0, Phosphorus Level 2.6, Magnesium Level 1.9, Total Bilirubin 0.9, Aspartate Amino Transf (AST/SGOT) 12, Alanine Aminotransferase (ALT/SGPT) 13, Alkaline Phosphatase 99, Total Protein 5.9L, Albumin 2.7L 01/29/23 10:24: Glucometer 165H 01/29/23 15:39: Glucometer 54*L 01/29/23 15:41: Glucometer 58*L 01/29/23 15:56: Glucometer 87 Microbiology 01/26/23 Gram Stain - Final, Resulted 01/26/23 Anaerobic Culture, Resulted Pending 01/26/23 Surgical Culture - Preliminary, Resulted Corynebactoerium aurimucosum Normal skin olman No Susceptibility Performed 01/26/23 MRSA Screen - Final, Complete MRSA not isolated 01/26/23 Urine Culture - Final, Complete NO GROWTH 01/26/23 Blood Culture - Preliminary, Resulted No growth Radiology Date of Exam:01/26/23 CT ABDOMEN/PELVIS WO PROCEDURE: CT abdomen and pelvis without contrast. TECHNIQUE: Multiple contiguous axial images were obtained through the abdomen and pelvis without the use of intravenous contrast. Auto Exposure Controls were utilized during the CT exam to meet ALARA standards for radiation dose reduction. INDICATION: Difficulty urinating. Groin infection. COMPARISON: 03/05/2018. FINDINGS: The heart is unremarkable. The lung bases are clear. Calcified granulomas are scattered in the liver and spleen. The gallbladder is mildly distended with gallstones layering in the gallbladder lumen. Stable benign-appearing nodule in the left adrenal gland measuring 1.8 cm. The right adrenal gland is unremarkable. The pancreas and kidneys have a normal appearance. There is no pathologically enlarged mesenteric or retroperitoneal adenopathy. The bowel loops are nondilated. The appendix is visualized in the right lower quadrant and has a normal appearance. There is no free fluid or free air. No acute osseous abnormalities. There is grade 1 anterolisthesis of L4 on L5. Scattered calcified aortic and iliac atherosclerotic plaque is seen without aneurysm. The urinary bladder is decompressed with a Hurtado in place. Inflammation and air is seen within the right inguinal region with extension into the proximal aspect of the scrotum on the right. No loculated fluid collection is seen. IMPRESSION: 1. Findings concerning for necrotizing fasciitis in the right inguinal region and proximal aspect of the scrotum on the right. No loculated collection to suggest abscess. Recommend continued close follow-up. 2. No acute abnormalities are seen within the abdomen and pelvis. Dictated by: Dictated on workstation # [id number] Dict: 01/26/23 1114 Trans: 01/26/23 1126 [facility] [id number] Interpreted by: FIFI PRATHER DO Electronically signed by: FIFI PRATHER DO 01/26/23 1126 Assessment/Plan Assessment/Plan (1) Necrotizing fasciitis Status: Acute Assessment & Plan: - General surgery managing, appreciate recommendations (2) Atrial fibrillation with RVR Status: Acute Assessment & Plan: 01/29: Rate controlled on PO cardizem, will transfer to 4th floor (3) Peripheral vascular disease Status: Chronic Assessment & Plan: - s/p bilateral LE amputations (4) IDDM (insulin dependent diabetes mellitus) Status: Chronic Assessment & Plan: 01/29: Continue home meds (5) Hypertension Status: Chronic (6) Hyperlipidemia Status: Chronic Assessment & Plan: 01/29: Continue statin (7) Tobacco abuse Status: Chronic KELSEA BLAIR MD Jan 29, 2023 18:03
[2023-01-30] VITALS (7 sets, daily range): BP systolic 121–152; BP diastolic 65–74
[2023-01-30] MEDS: PIPERACILLIN SODIUM/TAZOBACTAM 4.5 GM in NS (IVPB) 100 ML IV SCH ×3 (00:29→17:08)
[2023-01-30] MEDS: HYDROcodone/APAP 5 MG/325 MG (LORTAB) TAB PO PRN ×5 (04:13→22:20)
[2023-01-30] MEDS: ENOXAPARIN 300 MG/3 ML (LOVENOX) MULTI-DOSE VIAL SQ SCH (05:57)
[2023-01-30 06:12] LABS: ALBUMIN 2.6 GM/DL (3.2-4.5); CREATININE SERUM 0.74 MG/DL (0.60-1.30); POTASSIUM 3.4 MMOL/L (3.6-5.0); TOTAL PROTEIN 5.9 GM/DL (6.4-8.2)
[2023-01-30] MEDS: RT--FLUTICASONE/SALMETEROL 232-14 (AIRDUO RespiCLICK) IH SCH ×2 (07:50→20:18)
[2023-01-30] MEDS: inSUlin ASPART (NovoLOG) 1 UNIT/0.01 ML (CHARGE PER UNIT) SQ SCH ×2 (08:06→12:39)
[2023-01-30] MEDS: polyethylene glycoL POWDER 17 GM (MIRALAX) PACK PO SCH ×2 (08:06→19:45)
[2023-01-30] MEDS: SENNA W/DOCUSATE (SENOKOT S) TABLET PO SCH ×2 (08:07→19:44)
[2023-01-30] MEDS: PANTOPRAZOLE 40 MG (PROTONIX) VIAL IV SCH (08:07)
[2023-01-30] MEDS: NS IV 1000 ML 1,000 ML IV SCH (08:08)
--- NOTE | 2023-01-30 11:44 | Progress Note - Surgery ---
LALITHA CEDEÑO 01/30/23 1144: Subjective Date Seen by a Provider: Jan 30, 2023 Time Seen by a Provider: 10:15 Subjective/Events-last exam 57 M s/p I&D of Rt groin Necrotizing fasciitis reports improvement in pain today rating 3/0 described as dull ache and no radiation. Pain worsens upon movement of LE. Wound vac placed yesterday evening with foamy serosanguenous drainage present in bag. Pt was able to have a bowel movement last night, described as normal brown and formed w/o evidence of blood or melena. States resolution of cough symptoms and reflux symptoms. Cultures showed ESBL an pt was placed on contact precautions. Denies any fever, chills, n/v, diarrhea, or urinary complaints. Shultz still in place. Wound covered by dressing. Review of Systems General: No Chills, No Night Sweats HEENT: No Head Aches, No Dysphasia Pulmonary: No Dyspnea, No Cough Cardiovascular: No: Chest Pain, Palpitations Gastrointestinal: No: Nausea, Vomiting, Abdominal Pain Genitourinary: No Dysuria, No Frequency; Other (shultz in place ) Musculoskeletal: No: back pain, hand pain Neurological: No: Change in speech, Confusion Focused Exam Time of Focused Exam: 11:50 Objective Exam Vital Signs Date Time Temp Pulse Resp B/P (MAP) Pulse Ox O2 Delivery O2 Flow Rate FiO2 01/30/23 11:25 36.1 65 18 123/74 (90) 95 Nasal Cannula 2.00 01/30/23 10:00 95 Nasal Cannula 1.00 01/30/23 08:09 35.8 82 18 123/69 (87) 92 Nasal Cannula 2.00 01/30/23 07:50 96 Nasal Cannula 2.00 01/30/23 04:00 36.7 75 18 129/68 (88) 97 Nasal Cannula 1.00 01/30/23 00:31 72 18 124/66 (85) 95 Nasal Cannula 1.00 01/30/23 00:30 36.4 73 18 121/73 (89) 96 Nasal Cannula 1.00 01/30/23 00:30 36.4 73 18 121/73 (89) 96 Nasal Cannula 1.00 01/30/23 00:27 95 Nasal Cannula 1.00 01/29/23 23:57 36.2 01/29/23 20:01 101 16 140/68 (88) 93 Nasal Cannula 1.00 01/29/23 20:00 97 Nasal Cannula 1.00 01/29/23 19:56 96 Nasal Cannula 2.00 01/29/23 19:00 36.9 01/29/23 19:00 86 26 112/67 (77) 94 Nasal Cannula 1.00 01/29/23 19:00 99 01/29/23 18:00 88 15 113/73 (86) 93 Nasal Cannula 1.00 01/29/23 17:00 97 19 106/83 (91) 97 Nasal Cannula 1.00 01/29/23 16:03 36.0 01/29/23 16:00 83 24 128/84 (99) 95 Nasal Cannula 1.00 01/29/23 16:00 Nasal Cannula 1.00 01/29/23 15:00 80 19 94 Nasal Cannula 1.00 01/29/23 14:55 Nasal Cannula 1.00 01/29/23 14:00 126 22 102/48 (66) 93 Room Air 01/29/23 13:00 81 26 114/78 (90) 92 Room Air 01/29/23 12:11 78 01/29/23 12:10 Room Air 01/29/23 12:00 75 11 104/63 (77) 95 Nasal Cannula 1.00 01/29/23 11:45 Nasal Cannula 1.00 01/29/23 11:44 36.2 I & O 01/30/23 06:59 Intake Total 5000 ml Output Total 3800 ml Balance 1200 ml Capillary Refill : Less Than 3 Seconds General Appearance: No Apparent Distress, Chronically ill, Obese HEENT: PERRL/EOMI, Moist Mucous Membranes Neck: Non Tender; No Lymphadenopathy (L), No Lymphadenopathy (R) Respiratory: Lungs Clear, Normal Breath Sounds, No Accessory Muscle Use Cardiovascular: Regular Rate, Rhythm, No Murmur Peripheral Pulses: 3+ Radial Pulses (R), 3+ Radial Pulses (L) Gastrointestinal: normal bowel sounds, non tender, no organomegaly, distended (improved since yesterday ) Extremity: Other (BL BKA) Neurologic/Psychiatric: Alert, Oriented x3, Normal Mood/Affect Skin: No Normal Color, No Warm/Dry; Other (errythema of rt groin has improved since yesterday, wound vac in place) Lymphatic: Inguinal Node Tender (R) (reduced compared to yesterday ) Results Lab Laboratory Tests 01/29/23 15:39: Glucometer 54*L 01/29/23 15:41: Glucometer 58*L 01/29/23 15:56: Glucometer 87 01/30/23 00:14: Glucometer 85 01/30/23 04:10: Glucometer 115H 01/30/23 05:28: Sodium Level 138, Potassium Level 3.4L, Chloride Level 106, Carbon Dioxide Level 23, Anion Gap 9, Blood Urea Nitrogen 7, Creatinine 0.74, Estimat Glomerular Filtration Rate 106, BUN/Creatinine Ratio 9, Glucose Level 111H, Calcium Level 8.0L, Corrected Calcium 9.1, Total Bilirubin 1.0, Aspartate Amino Transf (AST/SGOT) 22, Alanine Aminotransferase (ALT/SGPT) 17, Alkaline Phosphatase 126, Total Protein 5.9L, Albumin 2.6L 01/30/23 10:32: Glucometer 151H Microbiology 01/26/23 Gram Stain - Final, Resulted 01/26/23 Anaerobic Culture, Resulted Pending 01/26/23 Surgical Culture - Preliminary, Resulted Corynebactoerium aurimucosum Actinomyces radingae No Susceptibility Performed 01/26/23 MRSA Screen - Final, Complete MRSA not isolated 01/26/23 Urine Culture - Final, Complete NO GROWTH 01/26/23 Blood Culture - Preliminary, Resulted No growth Assessment/Plan Assessment/Plan Assessment/Plan Atrial Flutter - on Cardizem Pneumonitis- improved S/P I&D for Necrotizing Fasciitis of right groin POD 4 uncontrolled DM Leukocytosis- no CBC today, last was 11.4 COPD CAD GERD-resolved Plan: wound VAC in place, continue to monitor drainage Continue IV abx therpay, continue SSI to gain glucose control, pain control with IV pain medications,serial CBCs to monitor Hgb continue supplemental O2, continue MAT and Sepsis protocol IVF, keep shultz in place continue protonix therapy stool softeners PRN start IS continue anti-coag therapy continue cardizem increase ambulation today with wheelchair CHATO TOWNSEND DO 01/30/23 1830: Subjective Time Seen by a Provider: 11:38 Subjective/Events-last exam Pt seen and examined, no new complaints and he is asking to go home. Review of Systems General: No Chills, No Night Sweats Pulmonary: No Dyspnea, No Cough Cardiovascular: No: Chest Pain, Palpitations Gastrointestinal: No: Nausea, Vomiting, Abdominal Pain Genitourinary: Other (shultz in place ) Objective Exam General Appearance: No Apparent Distress, Chronically ill, Obese HEENT: PERRL/EOMI, Moist Mucous Membranes Respiratory: Lungs Clear, Normal Breath Sounds, No Accessory Muscle Use Cardiovascular: Regular Rate, Rhythm, No Murmur Gastrointestinal: normal bowel sounds, non tender, no organomegaly, distended (improved since yesterday ) Extremity: Other (BL BKA) Neurologic/Psychiatric: Alert, Oriented x3 Skin: Other (errythema of rt groin has improved since yesterday, wound vac in place) Assessment/Plan Assessment/Plan Assessment/Plan Atrial Flutter - on Cardizem Pneumonitis- improved S/P I&D for Necrotizing Fasciitis of right groin POD 4 uncontrolled DM Leukocytosis- no CBC today, last was 11.4 COPD CAD GERD-resolved Plan: wound VAC in place, continue to monitor drainage Continue IV abx therpay, continue SSI to gain glucose control, pain control with IV pain medications,serial CBCs to monitor Hgb continue supplemental O2, continue MAT and Sepsis protocol IVF, keep shultz in place continue protonix therapy stool softeners PRN start IS continue anti-coag therapy continue cardizem increase ambulation today with wheelchair Will work with SW and Wound Care to get pt home care and portable wound VAC. Supervisory-Addendum Brief Verification & Attestation Participated in pt care: history, MDM, physical Personally performed: exam, history, MDM, supervision of care Care discussed with: Medical Student Procedures: n/a Verification and Attestation of Medical Student E/M Service A medical student performed and documented this service. I then reviewed and verified all information documented by the medical student and made modifications to such information, when appropriate. I personally performed a physical exam, medical decision making and then discussed any differences between the notes and made revisions as necessary to create one note. Chato Townsend , 01/30/23 , 18:30 LALITHA CEDEÑO Jan 30, 2023 11:44 CHATO TOWNSEND DO Jan 30, 2023 18:30
--- NOTE | 2023-01-30 11:49 | Cardiology Progress Note ---
Subjective Date Seen by Provider: Jan 30, 2023 Time Seen by Provider: 11:15 Subjective/Events-last exam no acute issues overngiht. Transferred to the floor from ICU. wound vac now in place Focused Exam Time of Focused Exam: 11:50 Objective-Cardiology Exam Last Set of Vital Signs Vital Signs 01/30/23 11:25 Temp 36.1 Pulse 65 Resp 18 B/P (MAP) 123/74 (90) Pulse Ox 95 O2 Delivery Nasal Cannula O2 Flow Rate 2.00 I&O Intake and Output 01/30/23 00:00 Intake Total 6442 ml Output Total 3375 ml Balance 3067 ml Intake Oral 2700 ml IV Total 3742 ml Output Urine Total 3375 ml # Bowel Movements 1 General: Alert, Oriented X3, No Acute Distress Lungs: Clear to Auscultation, Normal Air Movement Heart: Regular Rate, No Murmurs Abdomen: Normal Bowel Sounds, Soft, No Tenderness Extremities: Other (bilateral amputations) Neuro: Normal Speech, Cranial Nerves 3-12 NL Other physical findings GENERAL: He is actually in no acute distress. He is resting comfortably in the bed. NECK: Soft and supple. No cervical lymphadenopathy or thyromegaly. LUNGS: Demonstrate coarse and distant breath sounds bilaterally. no [place]a wheezing, rales or rhonchi noted. CARDIAC: Heart is irreg, irreg, not tachycardic. Distant heart sounds, normal S1, S2. No murmurs, gallops or rubs are appreciated. ABDOMEN: Obese, soft, nontender, nondistended, positive bowel sounds. EXTREMITIES: He is status post BKA in the bilateral lower extremities. No modesta cyanosis, clubbing or edema is noted. SKIN: No lesions, rashes or ecchymosis are noted. Results Lab Laboratory Tests 01/30/23 05:28 A/P-Cardiology Assessment/Plan 57M with the above-mentioned medical problems who presents for evaluation of right-sided groin pain, poor urine output, found to have necrotizing fasciitis complicated by atrial fibrillation versus atrial flutter versus with rapid ventricular response. ## Necrotizing fascitis s/p Irrigation and debridement. - as per general surgery ## PVD -s/p bilateral BKA ## DM - plan per hospitalist - statin and arabella inhibitor when possible. ## AF with RVR; HRs controlled. TSH and FT4 within normal limits - d/c dilt 45mg po Q6H; transitoin to dilt SR 120mg po BID - transition to oral anticoagulant agents today (eliquis 5 bid)- spoke with gen surg - keep K>4, Mg > 2 ## ECHO: EF 50-55% with noted hypokinesis of the anteroseptum and akinesis of the apex - recommend cardiology follow up with consideration of stress testing. # Dispo: - transfer to dilt sr bid and eliquis bid - outpt cardiology follow- regional wall motion abnormalities on echo; consider stress testing as outpt. VALE COLBY MD Jan 30, 2023 11:49
--- NOTE | 2023-01-30 13:41 | Progress Note ---
Subjective Subjective/Events-last exam Patient denies any complaints today. States that pain is better after wound vac was placed. Tolerating PO diet. Review of Systems General: No Fatigue, No Malaise Pulmonary: No Dyspnea, No Cough Cardiovascular: No: Chest Pain, Palpitations, Edema Gastrointestinal: No: Nausea, Vomiting, Abdominal Pain, Diarrhea, Constipation Genitourinary: Other (Hurtado in place) Neurological: Weakness Focused Exam Time of Focused Exam: 11:50 Objective Exam Last Set of Vital Signs Vital Signs Date Time Temp Pulse Resp B/P (MAP) Pulse Ox O2 Delivery O2 Flow Rate FiO2 01/30/23 11:25 36.1 65 18 123/74 (90) 95 Nasal Cannula 2.00 Capillary Refill : Less Than 3 Seconds I&O Intake and Output 01/30/23 00:00 Intake Total 6442 ml Output Total 3375 ml Balance 3067 ml Intake Oral 2700 ml IV Total 3742 ml Output Urine Total 3375 ml # Bowel Movements 1 General: Alert, Oriented X3, No Acute Distress Lungs: Clear to Auscultation, Normal Air Movement Heart: Regular Rate, No Murmurs Abdomen: Normal Bowel Sounds, Soft, No Tenderness, No Masses Extremities: Other (bilateral amputation) Neuro: Normal Speech Psych/Mental Status: Mental Status NL, Mood NL Results/Procedures Lab Laboratory Tests 01/29/23 15:39: Glucometer 54*L 01/29/23 15:41: Glucometer 58*L 01/29/23 15:56: Glucometer 87 01/30/23 00:14: Glucometer 85 01/30/23 04:10: Glucometer 115H 01/30/23 05:28: Sodium Level 138, Potassium Level 3.4L, Chloride Level 106, Carbon Dioxide Level 23, Anion Gap 9, Blood Urea Nitrogen 7, Creatinine 0.74, Estimat Glomerular Filtration Rate 106, BUN/Creatinine Ratio 9, Glucose Level 111H, Calcium Level 8.0L, Corrected Calcium 9.1, Total Bilirubin 1.0, Aspartate Amino Transf (AST/SGOT) 22, Alanine Aminotransferase (ALT/SGPT) 17, Alkaline Phosphatase 126, Total Protein 5.9L, Albumin 2.6L 01/30/23 10:32: Glucometer 151H Microbiology 01/26/23 Gram Stain - Final, Resulted 01/26/23 Anaerobic Culture, Resulted Pending 01/26/23 Surgical Culture - Preliminary, Resulted Corynebactoerium aurimucosum Actinomyces radingae No Susceptibility Performed 01/26/23 MRSA Screen - Final, Complete MRSA not isolated 01/26/23 Urine Culture - Final, Complete NO GROWTH 01/26/23 Blood Culture - Preliminary, Resulted No growth Radiology Date of Exam:01/26/23 CT ABDOMEN/PELVIS WO PROCEDURE: CT abdomen and pelvis without contrast. TECHNIQUE: Multiple contiguous axial images were obtained through the abdomen and pelvis without the use of intravenous contrast. Auto Exposure Controls were utilized during the CT exam to meet ALARA standards for radiation dose reduction. INDICATION: Difficulty urinating. Groin infection. COMPARISON: 03/05/2018. FINDINGS: The heart is unremarkable. The lung bases are clear. Calcified granulomas are scattered in the liver and spleen. The gallbladder is mildly distended with gallstones layering in the gallbladder lumen. Stable benign-appearing nodule in the left adrenal gland measuring 1.8 cm. The right adrenal gland is unremarkable. The pancreas and kidneys have a normal appearance. There is no pathologically enlarged mesenteric or retroperitoneal adenopathy. The bowel loops are nondilated. The appendix is visualized in the right lower quadrant and has a normal appearance. There is no free fluid or free air. No acute osseous abnormalities. There is grade 1 anterolisthesis of L4 on L5. Scattered calcified aortic and iliac atherosclerotic plaque is seen without aneurysm. The urinary bladder is decompressed with a Hurtado in place. Inflammation and air is seen within the right inguinal region with extension into the proximal aspect of the scrotum on the right. No loculated fluid collection is seen. IMPRESSION: 1. Findings concerning for necrotizing fasciitis in the right inguinal region and proximal aspect of the scrotum on the right. No loculated collection to suggest abscess. Recommend continued close follow-up. 2. No acute abnormalities are seen within the abdomen and pelvis. Dictated by: Dictated on workstation # [id number] Dict: 01/26/23 1114 Trans: 01/26/23 112 [facility] [id number] Interpreted by: FIFI PRATHER DO Electronically signed by: FIFI PRATHER DO 01/26/23 1126 Assessment/Plan Assessment/Plan (1) Necrotizing fasciitis Status: Acute Assessment & Plan: - General surgery managing, appreciate recommendations 01/30: Wound Vac placed today, working on home wound vac (2) Atrial fibrillation with RVR Status: Acute Assessment & Plan: 01/29: Rate controlled on PO cardizem, will transfer to 4th floor 01/30: Rate controlled, started on PO anticoagulation (3) Peripheral vascular disease Status: Chronic Assessment & Plan: - s/p bilateral LE amputations (4) IDDM (insulin dependent diabetes mellitus) Status: Chronic Assessment & Plan: 01/29: Continue home meds (5) Hypertension Status: Chronic Qualifiers: Qualified Codes: I10 - Essential (primary) hypertension (6) Hyperlipidemia Status: Chronic Assessment & Plan: 01/29: Continue statin (7) Tobacco abuse Status: Chronic KELSEA BLAIR MD Jan 30, 2023 13:41
[2023-01-30] MEDS: MICONAZOLE 2% POWDER (DESENEX AF) 90 GM TOP SCH (15:56)
[2023-01-30] MEDS: APIXABAN 5 MG (ELIQUIS) TABLET PO SCH (19:44)
[2023-01-30] MEDS: dilTIAZem120 MG (CARDIZEM CD) CAP PO SCH (19:44)
[2023-01-30] MEDS: inSUlin ASPART (NovoLOG) 1 UNIT/0.01 ML (CHARGE PER UNIT) SC SCH (21:54)
[2023-01-31] MEDS: PIPERACILLIN SODIUM/TAZOBACTAM 4.5 GM in NS (IVPB) 100 ML IV SCH ×2 (00:06→08:36)
[2023-01-31] MEDS: HYDROcodone/APAP 5 MG/325 MG (LORTAB) TAB PO PRN ×4 (02:45→19:46)
[2023-01-31 03:59] VITALS: BP 147/79
[2023-01-31] MEDS: inSUlin ASPART (NovoLOG) 1 UNIT/0.01 ML (CHARGE PER UNIT) SC SCH ×4 (04:36→20:31)
[2023-01-31 05:36] LABS: BASOPHILS # (AUTO) 0.1 10^3/uL (0.0-0.1); BASOPHILS % (AUTO) 1 % (0-10); EOSINOPHILS # (AUTO) 0.2 10^3/uL (0.0-0.3); EOSINOPHILS % (AUTO) 2 % (0-10); HEMATOCRIT 40 % (40-54); HEMOGLOBIN 13.1 g/dL (13.3-17.7); LYMPHOCYTES # (AUTO) 1.4 10^3/uL (1.0-4.0); LYMPHOCYTES % (AUTO) 14 % (12-44); MEAN CORPUSCULAR HEMOGLOBIN 29 pg (25-34); MEAN CORPUSCULAR HGB CONC 33 g/dL (32-36); MEAN CORPUSCULAR VOLUME 89 fL (80-99); MEAN PLATELET VOLUME 9.4 fL (9.0-12.2); MONOCYTES # (AUTO) 0.9 10^3/uL (0.0-1.0); MONOCYTES % (AUTO) 9 % (0-12); NEUTROPHILS # (AUTO) 7.2 10^3/uL (1.8-7.8); NEUTROPHILS % (AUTO) 73 % (42-75); PLATELET COUNT 163 10^3/uL (130-400); WHITE BLOOD COUNT 9.9 10^3/uL (4.3-11.0)
[2023-01-31 05:41] LABS: ALBUMIN 2.8 GM/DL (3.2-4.5); POTASSIUM 3.7 MMOL/L (3.6-5.0)
[2023-01-31 05:43] LABS: CALCIUM 8.2 MG/DL (8.5-10.1)
[2023-01-31 05:46] LABS: BILIRUBIN,TOTAL 0.7 MG/DL (0.1-1.0)
[2023-01-31 05:48] LABS: CREATININE SERUM 0.72 MG/DL (0.60-1.30)
[2023-01-31 07:38] VITALS: BP 146/94
[2023-01-31] MEDS: RT--FLUTICASONE/SALMETEROL 232-14 (AIRDUO RespiCLICK) IH SCH ×2 (07:56→20:46)
[2023-01-31] MEDS: PANTOPRAZOLE 40 MG (PROTONIX) VIAL IV SCH (08:35)
[2023-01-31] MEDS: APIXABAN 5 MG (ELIQUIS) TABLET PO SCH ×2 (08:36→19:46)
[2023-01-31] MEDS: polyethylene glycoL POWDER 17 GM (MIRALAX) PACK PO SCH ×2 (08:36→19:46)
[2023-01-31] MEDS: MICONAZOLE 2% POWDER (DESENEX AF) 90 GM TOP SCH ×2 (08:36→19:57)
[2023-01-31] MEDS: SENNA W/DOCUSATE (SENOKOT S) TABLET PO SCH ×2 (08:36→19:46)
--- NOTE | 2023-01-31 08:37 | Progress Note - Surgery ---
LALITHA CEDEÑO 01/31/23 0837: Subjective Date Seen by a Provider: Jan 31, 2023 Time Seen by a Provider: 08:32 Subjective/Events-last exam 57 M s/p I&D of rt groin due to necrotizing fasciitis POD 5 reports continued improvement in his pian. Rated 3/10 localized to rt groin and described as a dull ache. Pain worsens with movement of LE. Wound vac in place with bright red serosanguenous discharge. Pt was able to have another BM today w/o complaints. Pt became hypoglycemic overnight with glucose down to 54. Pt was given a snack and symptoms of diaphoresis and lightheadedness subsided. Denies any fever, n/v, CP, SOB, or urinary complaints. Per SS, pt to DC home tomorrow with home health for wound vac maintenance. Review of Systems General: Night Sweats (due to hypoglycemic episode ); No Fatigue HEENT: No Head Aches, No Visual Changes Pulmonary: No Dyspnea, No Cough Cardiovascular: No: Chest Pain, Palpitations Gastrointestinal: No: Nausea, Vomiting, Abdominal Pain Genitourinary: No Dysuria, No Frequency Musculoskeletal: No: neck pain, back pain Neurological: No: Change in speech, Confusion Focused Exam Time of Focused Exam: 11:50 Objective Exam Vital Signs Date Time Temp Pulse Resp B/P (MAP) Pulse Ox O2 Delivery O2 Flow Rate FiO2 01/31/23 07:56 97 Nasal Cannula 2.00 01/31/23 07:38 36.1 95 20 146/94 (111) 94 Nasal Cannula 2.00 01/31/23 03:59 36.9 79 20 147/79 (101) 97 High Flow N/C 1.00 01/30/23 23:10 36.5 74 20 149/65 (93) 95 High Flow N/C 1.00 01/30/23 20:19 97 Nasal Cannula 2.00 01/30/23 19:50 Nasal Cannula 1.00 01/30/23 19:29 36.8 73 18 152/71 (98) 96 High Flow N/C 1.00 01/30/23 16:20 35.8 75 20 146/73 (97) 97 Room Air 01/30/23 11:25 36.1 65 18 123/74 (90) 95 Nasal Cannula 2.00 01/30/23 10:00 95 Nasal Cannula 1.00 I & O 01/31/23 07:00 Intake Total 3200 ml Output Total 2800 ml Balance 400 ml Capillary Refill : Less Than 3 Seconds General Appearance: No Apparent Distress, Chronically ill, Obese HEENT: PERRL/EOMI, Moist Mucous Membranes Neck: Non Tender; No Lymphadenopathy (L), No Lymphadenopathy (R) Respiratory: Lungs Clear, Normal Breath Sounds, No Accessory Muscle Use Cardiovascular: Regular Rate, Rhythm, No Murmur Peripheral Pulses: 3+ Radial Pulses (R), 3+ Radial Pulses (L) Gastrointestinal: normal bowel sounds, non tender, no organomegaly, distended (mild increase since yesterday ) Extremity: Other (BL BKA) Neurologic/Psychiatric: Alert, Oriented x3 Skin: Normal Color, Warm/Dry, Other (errythema of rt groin continues to improve, wound vac in place) Lymphatic: Inguinal Node Tender (R) (tender to deep palpation, remains the same as yesterday ) Results Lab Laboratory Tests 01/30/23 10:32: Glucometer 151H 01/30/23 14:15: Glucometer 91 01/30/23 16:01: Glucometer 54*L 01/30/23 16:30: Glucometer 81 01/30/23 20:05: Glucometer 151H 01/31/23 04:33: Glucometer 132H 01/31/23 05:21: White Blood Count 9.9, Red Blood Count 4.51, Hemoglobin 13.1L, Hematocrit 40, Mean Corpuscular Volume 89, Mean Corpuscular Hemoglobin 29, Mean Corpuscular Hemoglobin Concent 33, Red Cell Distribution Width 12.8, Platelet Count 163, Mean Platelet Volume 9.4, Immature Granulocyte % (Auto) 2, Neutrophils (%) (Auto) 73, Lymphocytes (%) (Auto) 14, Monocytes (%) (Auto) 9, Eosinophils (%) (Auto) 2, Basophils (%) (Auto) 1, Neutrophils # (Auto) 7.2, Lymphocytes # (Auto) 1.4, Monocytes # (Auto) 0.9, Eosinophils # (Auto) 0.2, Basophils # (Auto) 0.1, Immature Granulocyte # (Auto) 0.2H, Sodium Level 138, Potassium Level 3.7, Chloride Level 104, Carbon Dioxide Level 24, Anion Gap 10, Blood Urea Nitrogen 5L, Creatinine 0.72, Estimat Glomerular Filtration Rate 107, BUN/Creatinine Ratio 7, Glucose Level 137H, Calcium Level 8.2L, Corrected Calcium 9.2, Total Bilirubin 0.7, Aspartate Amino Transf (AST/SGOT) 21, Alanine Aminotransferase (ALT/SGPT) 26, Alkaline Phosphatase 141H, Total Protein 6.0L, Albumin 2.8L Microbiology 01/26/23 Gram Stain - Final, Resulted 01/26/23 Anaerobic Culture, Resulted Pending 01/26/23 Surgical Culture - Final, Resulted Corynebactoerium aurimucosum Actinomyces radingae No Susceptibility Performed 01/26/23 MRSA Screen - Final, Complete MRSA not isolated 01/26/23 Urine Culture - Final, Complete NO GROWTH 01/26/23 Blood Culture - Preliminary, Resulted No growth Assessment/Plan Assessment/Plan Assessment/Plan Atrial Flutter - on Cardizem Pneumonitis- resolved S/P I&D for Necrotizing Fasciitis of right groin POD 5 uncontrolled DM Leukocytosis- resolved. WBC 9.9 today COPD CAD GERD-resolved Plan: wound VAC in place, change to portable wound vac,continue to monitor drainage, DC home tomorrow with portable wound vac and home health to ensure proper wound vac maintenance Continue outpt Abx therapy, continue SSI to gain glucose control, pain control with oral pain medications continue shultz, encourage increase in oral liquids continue protonix therapy continue anti-coag therapy continue CHATO Wall DO 01/31/23 1433: Subjective Time Seen by a Provider: 12:43 Subjective/Events-last exam Pt seen and examined, no new complaints Review of Systems General: Night Sweats (due to hypoglycemic episode ); No Fatigue Pulmonary: No Dyspnea, No Cough Cardiovascular: No: Chest Pain, Palpitations Gastrointestinal: No: Nausea, Vomiting, Abdominal Pain Objective Exam General Appearance: No Apparent Distress, Chronically ill, Obese HEENT: Moist Mucous Membranes Neck: Non Tender Respiratory: Lungs Clear, Normal Breath Sounds, No Accessory Muscle Use Cardiovascular: Regular Rate, Rhythm, No Murmur Gastrointestinal: normal bowel sounds, non tender, soft, no organomegaly, distended (mild increase since yesterday ) Extremity: Other (BL BKA) Neurologic/Psychiatric: Alert, Oriented x3 Skin: Other (errythema of rt groin continues to improve, wound vac in place) Assessment/Plan Assessment/Plan Assessment/Plan Atrial Flutter - on Cardizem Pneumonitis- resolved S/P I&D for Necrotizing Fasciitis of right groin POD 5 uncontrolled DM Leukocytosis- resolved. WBC 9.9 today COPD CAD GERD-resolved Plan: wound VAC in place, change to portable wound vac,continue to monitor drainage, DC home tomorrow with portable wound vac and home health to ensure proper wound vac maintenance Continue outpt Abx therapy, continue SSI to gain glucose control, pain control with oral pain medications continue shultz, encourage increase in oral liquids continue protonix therapy continue anti-coag therapy continue cardizem Supervisory-Addendum Brief Verification & Attestation Participated in pt care: history, MDM, physical Personally performed: exam, history, MDM, supervision of care Care discussed with: Medical Student Procedures: n/a Verification and Attestation of Medical Student E/M Service A medical student performed and documented this service. I then reviewed and verified all information documented by the medical student and made modifications to such information, when appropriate. I personally performed a physical exam, medical decision making and then discussed any differences between the notes and made revisions as necessary to create one note. Chato Townsend , 01/31/23 , 14:33 LALITHA CEDEÑO Jan 31, 2023 08:37 CHATO TOWNSEND DO Jan 31, 2023 14:33
[2023-01-31] MEDS: dilTIAZem120 MG (CARDIZEM CD) CAP PO SCH ×2 (08:40→19:45)
--- NOTE | 2023-01-31 09:28 | Cardiology Progress Note ---
Subjective Date Seen by Provider: Jan 31, 2023 Time Seen by Provider: 09:00 Subjective/Events-last exam No acute issues overnight. Eliquis started yesterday. HRs controlled in AF 60- 80bpm Focused Exam Time of Focused Exam: 11:50 Objective-Cardiology Exam Last Set of Vital Signs Vital Signs 01/31/23 01/31/23 07:38 07:56 Temp 36.1 Pulse 95 Resp 20 B/P (MAP) 146/94 (111) Pulse Ox 97 O2 Delivery Nasal Cannula O2 Flow Rate 2.00 I&O Intake and Output 01/31/23 00:00 Intake Total 3500 ml Output Total 2650 ml Balance 850 ml Intake Oral 2400 ml IV Total 1100 ml Output Urine Total 2650 ml General: Alert, Oriented X3, No Acute Distress Lungs: Clear to Auscultation, Normal Air Movement Heart: Regular Rate, No Murmurs Abdomen: Normal Bowel Sounds, Soft, No Tenderness, No Masses Extremities: Other (bilateral amputation) Neuro: Normal Speech Psych/Mental Status: Mental Status NL, Mood NL Other physical findings GENERAL: He is actually in no acute distress. He is resting comfortably in the bed. NECK: Soft and supple. No cervical lymphadenopathy or thyromegaly. LUNGS: Demonstrate coarse and distant breath sounds bilaterally. no modesta wheezing, rales or rhonchi noted. CARDIAC: Heart is irreg, irreg, not tachycardic. Distant heart sounds, normal S1, S2. No murmurs, gallops or rubs are appreciated. ABDOMEN: Obese, soft, nontender, nondistended, positive bowel sounds. EXTREMITIES: He is status post BKA in the bilateral lower extremities. No modesta cyanosis, clubbing or edema is noted. SKIN: No lesions, rashes or ecchymosis are noted. Results Lab Laboratory Tests 01/31/23 05:21 A/P-Cardiology Assessment/Plan 57M with the above-mentioned medical problems who presents for evaluation of right-sided groin pain, poor urine output, found to have necrotizing fasciitis complicated by atrial fibrillation versus atrial flutter versus with rapid ventricular response. ## Necrotizing fascitis s/p Irrigation and debridement. - as per general surgery ## PVD -s/p bilateral BKA ## DM - plan per hospitalist - statin and arabella inhibitor when possible. ## AF with RVR; HRs controlled. TSH and FT4 within normal limits -cont dilt SR 120mg po BID - cont eliquis 5 bid - keep K>4, Mg > 2 ## ECHO: EF 50-55% with noted hypokinesis of the anteroseptum and akinesis of th e apex - recommend cardiology follow up with consideration of stress testing. # Dispo: - cont dilt SR bid and eliquis bid - OUTPT CARDIOLOGY FOLLOW UP RECOMMENDED-- regional wall motion abnormalities on echo; consider stress testing as outpt. - today is last day I provide cardiology coverage; cardiology coverage will return on 02/05/23 VALE COLBY MD Jan 31, 2023 09:28
[2023-01-31] MEDS: NS IV 1000 ML 1,000 ML IV SCH ×2 (11:14→19:02)
[2023-01-31 11:36] VITALS: BP 122/79
[2023-01-31 16:08] VITALS: BP 150/77
--- NOTE | 2023-01-31 17:22 | Progress Note ---
Subjective Subjective/Events-last exam Patient doing well. waiting for home wound vac and then ready to d/c home with HH. Tolerating PO diet. Review of Systems Pulmonary: No Dyspnea, No Cough Cardiovascular: No: Chest Pain, Palpitations, Edema Gastrointestinal: No: Nausea, Vomiting, Abdominal Pain, Diarrhea, Constipation Neurological: Weakness Focused Exam Time of Focused Exam: 11:50 Objective Exam Last Set of Vital Signs Vital Signs Date Time Temp Pulse Resp B/P (MAP) Pulse Ox O2 Delivery O2 Flow Rate FiO2 01/31/23 16:08 36.0 89 18 150/77 (101) 97 Nasal Cannula 1.00 Capillary Refill : Less Than 3 Seconds I&O Intake and Output 01/31/23 00:00 Intake Total 3500 ml Output Total 2650 ml Balance 850 ml Intake Oral 2400 ml IV Total 1100 ml Output Urine Total 2650 ml General: Alert, Oriented X3, No Acute Distress Lungs: Clear to Auscultation, Normal Air Movement Heart: Regular Rate, No Murmurs Abdomen: Normal Bowel Sounds, Soft, No Tenderness, No Masses Extremities: Other (s/p bilateral amputations) Neuro: Normal Speech Results/Procedures Lab Laboratory Tests 01/30/23 20:05: Glucometer 151H 01/31/23 04:33: Glucometer 132H 01/31/23 05:21: White Blood Count 9.9, Red Blood Count 4.51, Hemoglobin 13.1L, Hematocrit 40, Mean Corpuscular Volume 89, Mean Corpuscular Hemoglobin 29, Mean Corpuscular Hemoglobin Concent 33, Red Cell Distribution Width 12.8, Platelet Count 163, Mean Platelet Volume 9.4, Immature Granulocyte % (Auto) 2, Neutrophils (%) (Auto) 73, Lymphocytes (%) (Auto) 14, Monocytes (%) (Auto) 9, Eosinophils (%) (Auto) 2, Basophils (%) (Auto) 1, Neutrophils # (Auto) 7.2, Lymphocytes # (Auto) 1.4, Monocytes # (Auto) 0.9, Eosinophils # (Auto) 0.2, Basophils # (Auto) 0.1, Immature Granulocyte # (Auto) 0.2H, Sodium Level 138, Potassium Level 3.7, Chloride Level 104, Carbon Dioxide Level 24, Anion Gap 10, Blood Urea Nitrogen 5L, Creatinine 0.72, Estimat Glomerular Filtration Rate 107, BUN/Creatinine Ratio 7, Glucose Level 137H, Calcium Level 8.2L, Corrected Calcium 9.2, Total Bilirubin 0.7, Aspartate Amino Transf (AST/SGOT) 21, Alanine Aminotransferase (ALT/SGPT) 26, Alkaline Phosphatase 141H, Total Protein 6.0L, Albumin 2.8L 01/31/23 11:03: Glucometer 193H 01/31/23 16:10: Glucometer 179H Microbiology 01/26/23 Gram Stain - Final, Complete 01/26/23 Anaerobic Culture - Final, Complete Prevotella species Bacteroides ureolyticus See Comments Mixed anaerobic olman 01/26/23 Surgical Culture - Final, Complete Corynebactoerium aurimucosum Actinomyces radingae No Susceptibility Performed 01/26/23 MRSA Screen - Final, Complete MRSA not isolated 01/26/23 Urine Culture - Final, Complete NO GROWTH 01/26/23 Blood Culture - Final, Complete No growth Radiology Date of Exam:01/26/23 CT ABDOMEN/PELVIS WO PROCEDURE: CT abdomen and pelvis without contrast. TECHNIQUE: Multiple contiguous axial images were obtained through the abdomen and pelvis without the use of intravenous contrast. Auto Exposure Controls were utilized during the CT exam to meet ALARA standards for radiation dose reduction. INDICATION: Difficulty urinating. Groin infection. COMPARISON: 03/05/2018. FINDINGS: The heart is unremarkable. The lung bases are clear. Calcified granulomas are scattered in the liver and spleen. The gallbladder is mildly distended with gallstones layering in the gallbladder lumen. Stable benign-appearing nodule in the left adrenal gland measuring 1.8 cm. The right adrenal gland is unremarkable. The pancreas and kidneys have a normal appearance. There is no pathologically enlarged mesenteric or retroperitoneal adenopathy. The bowel loops are nondilated. The appendix is visualized in the right lower quadrant and has a normal appearance. There is no free fluid or free air. No acute osseous abnormalities. There is grade 1 anterolisthesis of L4 on L5. Scattered calcified aortic and iliac atherosclerotic plaque is seen without aneurysm. The urinary bladder is decompressed with a Hurtado in place. Inflammation and air is seen within the right inguinal region with extension into the proximal aspect of the scrotum on the right. No loculated fluid collection is seen. IMPRESSION: 1. Findings concerning for necrotizing fasciitis in the right inguinal region and proximal aspect of the scrotum on the right. No loculated collection to suggest abscess. Recommend continued close follow-up. 2. No acute abnormalities are seen within the abdomen and pelvis. Dictated by: Dictated on workstation # [id number] Dict: 01/26/23 1114 Trans: 01/26/23 1126 [facility] [id number] Interpreted by: FIFI PRATHER DO Electronically signed by: FIFI PRATHER DO 01/26/23 1126 Assessment/Plan Assessment/Plan (1) Necrotizing fasciitis Status: Acute Assessment & Plan: - General surgery managing, appreciate recommendations 01/30: Wound Vac placed today, working on home wound vac 01/31: Home wound vac to be placed tomorrow, then home with (2) Atrial fibrillation with RVR Status: Acute Assessment & Plan: 01/29: Rate controlled on PO cardizem, will transfer to 4th floor 01/30: Rate controlled, started on PO anticoagulation 01/31: Rate controlled (3) Peripheral vascular disease Status: Chronic Assessment & Plan: - s/p bilateral LE amputations (4) IDDM (insulin dependent diabetes mellitus) Status: Chronic Assessment & Plan: 01/29: Continue home meds (5) Hypertension Status: Chronic Qualifiers: Qualified Codes: I10 - Essential (primary) hypertension (6) Hyperlipidemia Status: Chronic Assessment & Plan: 01/29: Continue statin (7) Tobacco abuse Status: Chronic KELSEA BLAIR MD Jan 31, 2023 17:22
[2023-01-31 20:21] VITALS: BP 130/59
[2023-01-31 23:10] VITALS: BP 133/72
[2023-02-01] MEDS: HYDROcodone/APAP 5 MG/325 MG (LORTAB) TAB PO PRN ×3 (01:50→10:57)
[2023-02-01 04:01] VITALS: BP 142/72
[2023-02-01] MEDS: inSUlin ASPART (NovoLOG) 1 UNIT/0.01 ML (CHARGE PER UNIT) SC SCH ×2 (05:17→11:48)
[2023-02-01 05:45] LABS: BASOPHILS # (AUTO) 0.1 10^3/uL (0.0-0.1); BASOPHILS % (AUTO) 1 % (0-10); EOSINOPHILS # (AUTO) 0.3 10^3/uL (0.0-0.3); EOSINOPHILS % (AUTO) 2 % (0-10); HEMATOCRIT 44 % (40-54); HEMOGLOBIN 13.9 g/dL (13.3-17.7); LYMPHOCYTES # (AUTO) 2.2 10^3/uL (1.0-4.0); LYMPHOCYTES % (AUTO) 18 % (12-44); MEAN CORPUSCULAR HEMOGLOBIN 29 pg (25-34); MEAN CORPUSCULAR HGB CONC 32 g/dL (32-36); MEAN CORPUSCULAR VOLUME 91 fL (80-99); MEAN PLATELET VOLUME 9.2 fL (9.0-12.2); MONOCYTES % (AUTO) 8 % (0-12); NEUTROPHILS # (AUTO) 8.8 10^3/uL (1.8-7.8); NEUTROPHILS % (AUTO) 70 % (42-75); PLATELET COUNT 191 10^3/uL (130-400); WHITE BLOOD COUNT 12.7 10^3/uL (4.3-11.0)
[2023-02-01 06:21] LABS: ALBUMIN 3.1 GM/DL (3.2-4.5); BILIRUBIN,TOTAL 0.8 MG/DL (0.1-1.0); CREATININE SERUM 0.79 MG/DL (0.60-1.30); POTASSIUM 3.9 MMOL/L (3.6-5.0)
[2023-02-01] MEDS: RT--FLUTICASONE/SALMETEROL 232-14 (AIRDUO RespiCLICK) IH SCH (07:06)
--- NOTE | 2023-02-01 07:41 | Progress Note - Surgery ---
LALITHA CEDEÑO 02/01/23 0741: Subjective Date Seen by a Provider: Feb 01, 2023 Time Seen by a Provider: 07:36 Subjective/Events-last exam 57 M s/p I&D or Rt groin secondary to necrotizing fasciitis POD 6 continues to state an improvement in pain. Rated 3/10 today localized to Rt groin. Per wang jurado, wound vac was changed and cleaned showing decrease in overall dimensions of wound w/o signs of recurrent infection. Plans to change to mobile wound vac and DC home today w/ home health. Pt tolerating diabetic diet and continues to have BMs. States he has no reflux or pulmonary symptoms. Pt denies any fever, CP, SOB, n/v, or urinary complaints. Review of Systems General: No Chills, No Night Sweats HEENT: No Head Aches, No Dysphasia Pulmonary: No Dyspnea, No Cough Cardiovascular: No: Chest Pain, Lt Headedness Gastrointestinal: No: Nausea, Vomiting, Abdominal Pain Genitourinary: No Dysuria, No Frequency Musculoskeletal: No: neck pain, back pain Neurological: No: Change in speech, Confusion Focused Exam Time of Focused Exam: 11:50 Objective Exam Vital Signs Date Time Temp Pulse Resp B/P (MAP) Pulse Ox O2 Delivery O2 Flow Rate FiO2 02/01/23 07:07 Nasal Cannula 2.00 02/01/23 04:01 36.4 73 20 142/72 (95) 98 Nasal Cannula 1.00 01/31/23 23:10 36.6 86 20 133/72 (92) 97 Nasal Cannula 1.00 01/31/23 20:47 96 Nasal Cannula 2.00 01/31/23 20:21 36.1 90 18 130/59 (82) 94 Nasal Cannula 1.00 01/31/23 19:50 Nasal Cannula 1.00 01/31/23 16:08 36.0 89 18 150/77 (101) 97 Nasal Cannula 1.00 01/31/23 11:36 35.9 89 20 122/79 (93) 95 Nasal Cannula 2.00 01/31/23 08:00 Nasal Cannula 1.00 01/31/23 07:56 97 Nasal Cannula 2.00 01/31/23 07:38 36.1 95 20 146/94 (111) 94 Nasal Cannula 2.00 I & O 02/01/23 07:00 Intake Total 1890 ml Output Total 3505 ml Balance -1615 ml Capillary Refill : Less Than 3 Seconds General Appearance: No Apparent Distress, Chronically ill, Obese HEENT: Moist Mucous Membranes Neck: Non Tender Respiratory: Lungs Clear, Normal Breath Sounds, No Accessory Muscle Use Cardiovascular: Regular Rate, Rhythm, No Murmur Peripheral Pulses: 3+ Radial Pulses (R), 3+ Radial Pulses (L) Gastrointestinal: normal bowel sounds, non tender, soft, no organomegaly, no pulsatile mass Extremity: Other (BL BKA) Neurologic/Psychiatric: Alert, Oriented x3 Skin: Normal Color, Warm/Dry, Other (errythema of rt groin continues to decrease compared to yesterday, wound vac in place. ) Lymphatic: Inguinal Node Tender (R) (decrease in pain w/ palpation compared to yesterday) Results Lab Laboratory Tests 01/31/23 11:03: Glucometer 193H 01/31/23 16:10: Glucometer 179H 01/31/23 20:24: Glucometer 175H 02/01/23 05:17: Glucometer 137H 02/01/23 05:18: White Blood Count 12.7H, Red Blood Count 4.82, Hemoglobin 13.9, Hematocrit 44, Mean Corpuscular Volume 91, Mean Corpuscular Hemoglobin 29, Mean Corpuscular Hemoglobin Concent 32, Red Cell Distribution Width 12.8, Platelet Count 191, Mean Platelet Volume 9.2, Immature Granulocyte % (Auto) 2, Neutrophils (%) (Auto) 70, Lymphocytes (%) (Auto) 18, Monocytes (%) (Auto) 8, Eosinophils (%) (Auto) 2, Basophils (%) (Auto) 1, Neutrophils # (Auto) 8.8H, Lymphocytes # (Auto) 2.2, Monocytes # (Auto) 1.0, Eosinophils # (Auto) 0.3, Basophils # (Auto) 0.1, Immature Granulocyte # (Auto) 0.2H, Sodium Level 142, Potassium Level 3.9, Chloride Level 103, Carbon Dioxide Level 28, Anion Gap 11, Blood Urea Nitrogen 6L, Creatinine 0.79, Estimat Glomerular Filtration Rate 104, BUN/Creatinine Ratio 8, Glucose Level 140H, Calcium Level 9.0, Corrected Calcium 9.7, Total Bilirubin 0.8, Aspartate Amino Transf (AST/SGOT) 22, Alanine Aminotransferase (ALT/SGPT) 20, Alkaline Phosphatase 144H, Total Protein 7.0, Albumin 3.1L Microbiology 01/26/23 Gram Stain - Final, Complete 01/26/23 Anaerobic Culture - Final, Complete Prevotella species Bacteroides ureolyticus See Comments Mixed anaerobic olman 01/26/23 Surgical Culture - Final, Complete Corynebactoerium aurimucosum Actinomyces radingae No Susceptibility Performed 01/26/23 MRSA Screen - Final, Complete MRSA not isolated 01/26/23 Urine Culture - Final, Complete NO GROWTH 01/26/23 Blood Culture - Final, Complete No growth Assessment/Plan Assessment/Plan Assessment/Plan Atrial Flutter w/ RVR- on Cardizem Pneumonitis- resolved S/P I&D for Necrotizing Fasciitis of right groin POD 6 uncontrolled DM Leukocytosis- increased from 9.9 to 12.7 COPD CAD GERD-resolved Plan: wound VAC in place, change to portable wound vac today,continue to monitor drainage, DC home today with portable wound vac and home health to ensure proper wound vac maintenance Abx therapy complete, continue out pt insulin therapy to maintain glucose control, pain control with oral pain medications remove shultz today, encourage increase in oral liquids continue protonix therapy continue anti-coag therapy continue cardizem F/u out pt with Dr. Townsend in 2 wks to analyze wound healing SEBAS TOWNSEND DO 02/01/23 1537: Subjective Time Seen by a Provider: 13:01 Subjective/Events-last exam Pt seen and examined, states he is ready to go home. SW set up home health and wound VAC. Review of Systems Pulmonary: No Dyspnea, No Cough Gastrointestinal: No: Nausea, Vomiting, Abdominal Pain Objective Exam General Appearance: No Apparent Distress, Chronically ill, Obese HEENT: Moist Mucous Membranes Respiratory: Lungs Clear, Normal Breath Sounds, No Accessory Muscle Use Cardiovascular: Regular Rate, Rhythm, Normal Peripheral Pulses Gastrointestinal: non tender, soft, no organomegaly Extremity: Other (BL BKA) Skin: Other (errythema of rt groin continues to decrease compared to yesterday, wound vac in place. ) Assessment/Plan Assessment/Plan Assessment/Plan Atrial Flutter w/ RVR- on Cardizem Pneumonitis- resolved S/P I&D for Necrotizing Fasciitis of right groin POD 6 uncontrolled DM Leukocytosis- increased from 9.9 to 12.7 COPD CAD GERD-resolved Plan: wound VAC in place, change to portable wound vac today,continue to monitor drainage, DC home today with portable wound vac and home health to ensure proper wound vac maintenance Abx therapy complete, continue out pt insulin therapy to maintain glucose control, pain control with oral pain medications remove shultz today, encourage increase in oral liquids continue protonix therapy continue anti-coag therapy continue cardizem F/u in my office in 2 wks to analyze wound healing Supervisory-Addendum Brief Verification & Attestation Participated in pt care: history, MDM, physical Personally performed: exam, history, MDM, supervision of care Care discussed with: Medical Student Procedures: n/a Verification and Attestation of Medical Student E/M Service A medical student performed and documented this service. I then reviewed and verified all information documented by the medical student and made modifications to such information, when appropriate. I personally performed a physical exam, medical decision making and then discussed any differences betwe en the notes and made revisions as necessary to create one note. Sebas Townsend , 02/01/23 , 15:37 LALITHA CEDEÑO Feb 01, 2023 07:41 SEBAS TOWNSEND DO Feb 01, 2023 15:37
[2023-02-01 07:48] VITALS: BP 141/81
[2023-02-01] MEDS: APIXABAN 5 MG (ELIQUIS) TABLET PO SCH (09:08)
[2023-02-01] MEDS: SENNA W/DOCUSATE (SENOKOT S) TABLET PO SCH (09:08)
[2023-02-01] MEDS: dilTIAZem120 MG (CARDIZEM CD) CAP PO SCH (09:08)
[2023-02-01] MEDS: polyethylene glycoL POWDER 17 GM (MIRALAX) PACK PO SCH (09:08)
[2023-02-01] MEDS: PANTOPRAZOLE 40 MG (PROTONIX) VIAL IV SCH (09:08)
[2023-02-01] MEDS: MICONAZOLE 2% POWDER (DESENEX AF) 90 GM TOP SCH (09:09)
[2023-02-01 11:43] VITALS: BP 167/91
[2023-02-01] MEDS ORDERED: OXC5T PO (11:55)
[2023-02-01] MEDS ORDERED: INSU100I23 SQ (11:55)
[2023-02-01] MEDS ORDERED: INSU200I4 SQ (11:55)
[2023-02-01] MEDS ORDERED: DILT-27 PO (11:55)
[2023-02-01] MEDS ORDERED: APIX5TAB PO (11:55)
--- NOTE | 2023-02-01 11:57 | D/C HH Face to Face Order ---
D/C Face to Face Orders Reconcile Patient Problems Problems Reviewed?: Yes Instructions for Patient Via [facility], Patient Instructions/FollowUp: [facility] 1 week Physician to follow Patient: [facility] Discharge Diet for Home: ADA Diet Patient Problems: necrotizing fasciitis Patient Data-Allergies,Ht & Wt Patient Allergies: Coded Allergies: pregabalin (Verified Allergy, Severe, FEVER, 12/01/21) metformin (Unverified Allergy, Unknown, 02/10/22) Height (Feet): 6 Height (Inches): 4.00 Weight (Pounds): 369 Weight (Ounces): 14.4 Home Health Need/Face to Face Date of Face to Face: Feb 01, 2023 Clinical Findings: Generalized weakness and fatigue, Instability, Muscle weakness, Unsteady gait I have seen Pt [id number]: Yes Discharged To: Home Diagnosis/Conditions: Fasciitis Patient is Homebound due to: Ja fall risk due to instabilty, Muscle weakness Homebound Status Due to the above stated illness, injury or surgical procedure (medical condition or diagnosis) and associated clinical findings, the patient is homebound because of his/her inability to leave home except with aid of a supportive device and/or person AND leaving the home requires a considerable and taxing effort or is medically contraindicated. Pt req the following assistanc: [facility] Nursing Orders Home Health Services Order: Nursing Services, Automatic Pad Making Machine Operator-Evaluate & Treat, Physical Therapy-Evaluate & Treat, Wound Care-Eval/Treat Home Health Infusion Therapy Line Start Date: Jan 26, 2023 Certify Stmt I certify that this patient is under my care and that I, a nurse practitioner or a physician; a facility assistant working with me, had a face to face encounter that - meets the physician face to face encounter requirements with this patient as dated. SARAHY SANTANA DO Feb 01, 2023 11:57
--- NOTE | 2023-02-01 11:58 | Discharge Summary ---
Discharge Summary Hospital Course Problems/Dx: (1) Necrotizing fasciitis Status: Acute (2) Peripheral vascular disease Status: Chronic (3) IDDM (insulin dependent diabetes mellitus) Status: Chronic (4) Chronic pain Status: Chronic (5) Hyperlipidemia Status: Chronic (6) Hypertension Status: Chronic Qualifiers: Qualified Codes: I10 - Essential (primary) hypertension (7) Tobacco abuse Status: Chronic (8) Debility Status: Chronic Hospital Course Date of Admission: Jan 26, 2023 at 13:00 Admission Diagnosis : Family Physician/Provider: [place] Date of Discharge: 02/01/23 Discharge Diagnosis: [ ] Hospital Course: [ ] Labs and Pending Lab Test: Laboratory Tests 01/31/23 16:10: Glucometer 179H 01/31/23 20:24: Glucometer 175H 02/01/23 05:17: Glucometer 137H 02/01/23 05:18: White Blood Count 12.7H, Red Blood Count 4.82, Hemoglobin 13.9, Hematocrit 44, Mean Corpuscular Volume 91, Mean Corpuscular Hemoglobin 29, Mean Corpuscular Hem oglobin Concent 32, Red Cell Distribution Width 12.8, Platelet Count 191, Mean Platelet Volume 9.2, Immature Granulocyte % (Auto) 2, Neutrophils (%) (Auto) 70, Lymphocytes (%) (Auto) 18, Monocytes (%) (Auto) 8, Eosinophils (%) (Auto) 2, Basophils (%) (Auto) 1, Neutrophils # (Auto) 8.8H, Lymphocytes # (Auto) 2.2, Monocytes # (Auto) 1.0, Eosinophils # (Auto) 0.3, Basophils # (Auto) 0.1, Immature Granulocyte # (Auto) 0.2H, Sodium Level 142, Potassium Level 3.9, Chloride Level 103, Carbon Dioxide Level 28, Anion Gap 11, Blood Urea Nitrogen 6L, Creatinine 0.79, Estimat Glomerular Filtration Rate 104, BUN/Creatinine Ratio 8, Glucose Level 140H, Calcium Level 9.0, Corrected Calcium 9.7, Total Bilirubin 0.8, Aspartate Amino Transf (AST/SGOT) 22, Alanine Aminotransferase (ALT/SGPT) 20, Alkaline Phosphatase 144H, Total Protein 7.0, Albumin 3.1L 02/01/23 10:57: Glucometer 201H Microbiology 01/26/23 Gram Stain - Final, Complete 01/26/23 Anaerobic Culture - Final, Complete Prevotella species Bacteroides ureolyticus See Comments Mixed anaerobic olman 01/26/23 Surgical Culture - Final, Complete Corynebactoerium aurimucosum Actinomyces radingae No Susceptibility Performed 01/26/23 MRSA Screen - Final, Complete MRSA not isolated 01/26/23 Urine Culture - Final, Complete NO GROWTH 01/26/23 Blood Culture - Final, Complete No growth Home Meds Active Oxyir Tablet (Oxycodone HCl) 5 Mg Tab 5 Mg PO Q6H PRN Diltiazem 24Hr ER (Diltiazem HCl) 120 Mg Cap.er.24h 120 Mg PO BID Eliquis (Apixaban) 5 Mg Tablet 5 Mg PO BID Humalog Kwikpen (Insulin Lispro) 100 Unit/Ml Insuln.pen 30 Unit SQ AC 7 Days Tresiba Flextouch U-200 (Insulin Degludec) 200 Unit/Ml (3 Ml) Insuln.pen 60 Unit SQ 1900 7 Days Reported Trulicity (Dulaglutide) 4.5 Mg/0.5 Ml Pen.injctr 4.5 Mg SQ WEEK LAST FILLED 08-09-2022 #2/28 DAY SUPPLY Excedrin Migraine Caplet (Aspirin/Acetaminophen/Caffeine) 250 Mg-250 Mg-65 Mg Tablet 2 Each PO Q6-8HR PRN Ibuprofen 200 Mg Tablet 800 Mg PO Q6H PRN Symbicort 160-4.5 Mcg Inhaler (Budesonide/Formoterol Fumarate) 160 Mcg-4.5 Mcg/Actuation Hfa.aer.ad 1 Puff IH BID Ventolin Hfa (Albuterol Sulfate) 1 Puff Puff 2 Puff INH Q4H PRN Discharge Physical Examination Vital Signs Vital Signs Date Time Temp Pulse Resp B/P (MAP) Pulse Ox O2 Delivery O2 Flow Rate FiO2 02/01/23 08:00 Nasal Cannula 1.00 02/01/23 07:48 35.9 83 18 141/81 (101) 95 Allergies: Coded Allergies: pregabalin (Verified Allergy, Severe, FEVER, 12/01/21) metformin (Unverified Allergy, Unknown, 02/10/22) Discharge Summary Date of Admission Jan 26, 2023 at 13:00 Date of Discharge Discharge Date: Feb 01, 2023 Admission Diagnosis Assessment: Right groin necrotizing fasciitis Discharge Diagnosis Assessment: Right groin necrotizing fasciitis (1) 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 (2) Peripheral vascular disease (3) IDDM (insulin dependent diabetes mellitus) (4) Chronic pain (5) Hypertension (6) Hyperlipidemia (7) BMI 40.0-44.9, adult (8) DVT prophylaxis (9) Debility (10) Tobacco use (11) Marijuana use (12) Presumed JORGE (13) New onset AF RVR Plan: IV abx AF management Pain control (1) Necrotizing fasciitis Status: Acute (2) Peripheral vascular disease Status: Chronic (3) IDDM (insulin dependent diabetes mellitus) Status: Chronic (4) Chronic pain Status: Chronic (5) Hyperlipidemia Status: Chronic (6) Hypertension Status: Chronic Qualifiers: Qualified Codes: I10 - Essential (primary) hypertension (7) Tobacco abuse Status: Chronic (8) Debility Status: Chronic SARAHY SANTANA DO Feb 01, 2023 11:58
[2023-02-01] MEDS ORDERED: METR-145 PO (13:56)
--- NOTE | 2023-02-01 13:57 | Discharge Summary ---
Discharge Summary Hospital Course Was the Problem List Reviewed?: Yes Problems/Dx: (1) Necrotizing fasciitis Status: Acute (2) Peripheral vascular disease Status: Chronic (3) IDDM (insulin dependent diabetes mellitus) Status: Chronic (4) Chronic pain Status: Chronic (5) Hyperlipidemia Status: Chronic (6) Hypertension Status: Chronic Qualifiers: Qualified Codes: I10 - Essential (primary) hypertension (7) Tobacco abuse Status: Chronic (8) Debility Status: Chronic Hospital Course Date of Admission: Jan 26, 2023 at 13:00 Admission Diagnosis : [facility] Date of Discharge: 02/01/23 Discharge Diagnosis: [ ] Hospital Course: Lengthy course after admitted for cellulitis of the groin and necrotizing fasciitis required I&D and placement of wound vac. ICU admit was uneventful. Patient then experienced new onset AF RVR requiring transfer back to ICU and placed on appropriate meds. Overall he did well but required wound vac and placement of Flagyl at DC for wound infection. Labs and Pending Lab Test: Laboratory Tests 01/31/23 16:10: Glucometer 179H 01/31/23 20:24: Glucometer 175H 02/01/23 05:17: Glucometer 137H 02/01/23 05:18: White Blood Count 12.7H, Red Blood Count 4.82, Hemoglobin 13.9, Hematocrit 44, Mean Corpuscular Volume 91, Mean Corpuscular Hemoglobin 29, Mean Corpuscular Hemoglobin Concent 32, Red Cell Distribution Width 12.8, Platelet Count 191, Mean Platelet Volume 9.2, Immature Granulocyte % (Auto) 2, Neutrophils (%) (Auto) 70, Lymphocytes (%) (Auto) 18, Monocytes (%) (Auto) 8, Eosinophils (%) (Auto) 2, Basophils (%) (Auto) 1, Neutrophils # (Auto) 8.8H, Lymphocytes # (Auto) 2.2, Monocytes # (Auto) 1.0, Eosinophils # (Auto) 0.3, Basophils # (Auto) 0.1, Immature Granulocyte # (Auto) 0.2H, Sodium Level 142, Potassium Level 3.9, Chloride Level 103, Carbon Dioxide Level 28, Anion Gap 11, Blood Urea Nitrogen 6L, Creatinine 0.79, Estimat Glomerular Filtration Rate 104, BUN/Creatinine Ratio 8, Glucose Level 140H, Calcium Level 9.0, Corrected Calcium 9.7, Total Bilirubin 0.8, Aspartate Amino Transf (AST/SGOT) 22, Alanine Aminotransferase (ALT/SGPT) 20, Alkaline Phosphatase 144H, Total Protein 7.0, Albumin 3.1L 02/01/23 10:57: Glucometer 201H Microbiology 01/26/23 Gram Stain - Final, Complete 01/26/23 Anaerobic Culture - Final, Complete Prevotella species Bacteroides ureolyticus See Comments Mixed anaerobic olman 01/26/23 Surgical Culture - Final, Complete Corynebactoerium aurimucosum Actinomyces radingae No Susceptibility Performed 01/26/23 MRSA Screen - Final, Complete MRSA not isolated 01/26/23 Urine Culture - Final, Complete NO GROWTH 01/26/23 Blood Culture - Final, Complete No growth Home Meds Active Metronidazole 500 Mg Tablet 500 Mg PO TID Oxyir Tablet (Oxycodone HCl) 5 Mg Tab 5 Mg PO Q6H PRN Diltiazem 24Hr ER (Diltiazem HCl) 120 Mg Cap.er.24h 120 Mg PO BID Eliquis (Apixaban) 5 Mg Tablet 5 Mg PO BID Humalog Kwikpen (Insulin Lispro) 100 Unit/Ml Insuln.pen 30 Unit SQ AC 7 Days Tresiba Flextouch U-200 (Insulin Degludec) 200 Unit/Ml (3 Ml) Insuln.pen 60 Unit SQ 1900 7 Days Reported Trulicity (Dulaglutide) 4.5 Mg/0.5 Ml Pen.injctr 4.5 Mg SQ WEEK LAST FILLED 08-09-2022 #2/28 DAY SUPPLY Excedrin Migraine Caplet (Aspirin/Acetaminophen/Caffeine) 250 Mg-250 Mg-65 Mg Tablet 2 Each PO Q6-8HR PRN Ibuprofen 200 Mg Tablet 800 Mg PO Q6H PRN Symbicort 160-4.5 Mcg Inhaler (Budesonide/Formoterol Fumarate) 160 Mcg-4.5 Mcg/Actuation Hfa.aer.ad 1 Puff IH BID Ventolin Hfa (Albuterol Sulfate) 1 Puff Puff 2 Puff INH Q4H PRN Assessment/Pt Instructions [facility] 1 week Discharge Planning: <30 minutes discharge planning Discharge Physical Examination Vital Signs Vital Signs Date Time Temp Pulse Resp B/P (MAP) Pulse Ox O2 Delivery O2 Flow Rate FiO2 02/01/23 11:43 36.0 85 18 167/91 (116) 92 Room Air 02/01/23 08:00 1.00 General Appearance: No Apparent Distress, WD/WN, Chronically ill Allergies: Coded Allergies: pregabalin (Verified Allergy, Severe, FEVER, 12/01/21) metformin (Unverified Allergy, Unknown, 02/10/22) Discharge Summary Date of Admission Jan 26, 2023 at 13:00 Date of Discharge Discharge Date: Feb 01, 2023 Admission Diagnosis Assessment: Right groin necrotizing fasciitis Discharge Diagnosis Assessment: Right groin necrotizing fasciitis (1) 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 (2) Peripheral vascular disease (3) IDDM (insulin dependent diabetes mellitus) (4) Chronic pain (5) Hypertension (6) Hyperlipidemia (7) BMI 40.0-44.9, adult (8) DVT prophylaxis (9) Debility (10) Tobacco use (11) Marijuana use (12) Presumed JORGE (13) New onset AF RVR Plan: IV abx AF management Pain control (1) Necrotizing fasciitis Status: Acute (2) Peripheral vascular disease Status: Chronic (3) IDDM (insulin dependent diabetes mellitus) Status: Chronic (4) Chronic pain Status: Chronic (5) Hyperlipidemia Status: Chronic (6) Hypertension Status: Chronic Qualifiers: Qualified Codes: I10 - Essential (primary) hypertension (7) Tobacco abuse Status: Chronic (8) Debility Status: Chronic SARAHY SANTANA DO Feb 01, 2023 13:57
--- NOTE | 2023-02-14 06:43 | Physician Query Clarification ---
PQ-Uncertain Diagnosis Admission/Discharge Admission Date: Jan 26, 2023 at 13:00 Discharge Date: Feb 01, 2023 at 13:55 SARAHY Gastelum DO The medical record reflects the following clinical scenario: History/Risk Factors: 57 y/o male patient admitted with cellulitis of the left groin and necrotizing fascitis, sepsis was documented in medical record. H and P, 01/26: Right groin necrotizing fascitis, periferal vascular disease. Progress notes, 01/27: Severe sepsis, necrotizing fascitis right groin to scrotum. Clinical Findings: White blood count 34.2*H, blood pressure 110 /78, lactic acid level 2.09*H, pulse 115. Treatment: IV antibiotics and I&D of abscess. Question: Is Sepsis a clinically valid diagnosis? Sepsis was documented in the progress notes,01/27 with no further documentation in the medical record. Please document a response in Progress Note or Discharge Summary. 1. Yes, clinically valid, condition resolved. 2. No, condition ruled out. 3. Other, with explanation of clinical findings. 4. Undetermined, no explanation for clinical findings. PHYSICIAN RESPONSE Diagnosis clinically valid: Yes, Conditon resolved In responding to this query, please exercise your independent professional ju dgment. The purpose of this communication is to more accurately reflect the complexity of your patients condition. The fact that a question is asked does not imply that any particular answer is desired or expected. Thank you for your timely response to this clarification. Requestors name: [ ] Phone # [ ] THIS PHYSICIAN QUERY FORM IS A PERMANENT PART OF THE MEDICAL RECORD MONICA MADSEN Feb 14, 2023 06:43 SARAHY SANTANA DO Feb 14, 2023 09:02
== END 2023-02-01 13:55 | disposition home or self-care (01) | DRG 853 ==
LOC: EDUNIT# 08:14 → ER 08:19 → ICU 13:00 → 4TH 01-27 13:13 → ICU 01-27 20:56 → 4TH 01-30 01:20
PROVIDERS: ADMIT Surgery; ATTEND Surgery
PROC: 0JBB0ZZ Excision of Perineum Subcutaneous Tissue and Fascia, Open Approach (ICD-10-PCS; principal; 2023-01-26 14:57)
DX: A41.9 Sepsis, unspecified organism (principal); M72.6 Necrotizing fasciitis; L02.214 Cutaneous abscess of groin; Z68.43 Body mass index [BMI] 50.0-59.9, adult; R65.20 Severe sepsis without septic shock; E11.649 Type 2 diabetes mellitus with hypoglycemia without coma; E11.51 Type 2 diabetes mellitus with diabetic peripheral angiopathy without gangrene; I48.91 Unspecified atrial fibrillation; E78.5 Hyperlipidemia, unspecified; I10 Essential (primary) hypertension; F17.210 Nicotine dependence, cigarettes, uncomplicated; G47.30 Sleep apnea, unspecified; J44.9 Chronic obstructive pulmonary disease, unspecified; K21.9 Gastro-esophageal reflux disease without esophagitis; R53.81 Other malaise; D64.9 Anemia, unspecified; I51.89 Other ill-defined heart diseases; K59.00 Constipation, unspecified; E66.9 Obesity, unspecified; G89.29 Other chronic pain; I25.10 Atherosclerotic heart disease of native coronary artery without angina pectoris; Z79.4 Long term (current) use of insulin; Z89.512 Acquired absence of left leg below knee; Z89.511 Acquired absence of right leg below knee; Z79.899 Other long term (current) drug therapy
CPT/HCPCS: 36415; 51702; 71045; 74176; 80048; 80053; 80202; 81000; 82947; 83605; 83735; 83880; 84100; 84439; 84443; 84484; 85007; 85025; 85027; 85610; 85730; 87040; 87070; 87075; 87077; 87081; 87088; 87185; 87205; 88304; 93005; 93306; 94640; 96361; 96365; 96366; 96367; 96368; 96375